=== PATIENT | female | born 1970 | race Caucasian/White ===

== ENCOUNTER 2022-05-15 10:34 | Outpatient (CLI) | payer BC ==
--- NOTE | 2022-05-15 13:17 | Ultrasound Report ---
PROCEDURE: Duplex Ext Veins Left INDICATIONS: PAIN IN LEFT CALF TECHNIQUE: Real-time imaging, as well as color and pulse Doppler interrogation, were performed of the lower extr emity deep veins from the inguinal ligament to the popliteal fossa. COMPARISON: None. FINDINGS: The deep veins are normally compressible, and free of intraluminal thrombus. Color and pu lse Doppler demonstrate normal phasic intraluminal flow. There is normal augmentation response to di stal compression maneuver. IMPRESSION: No evidence of left lower extremity deep venous thrombosis. Reviewed by: Alan Quintero MD on 05/15/2022 1:15 PM PDT Approved by: Alan Quintero MD on 05/15/2022 1:15 PM PDT Station ID: [id number]
== END 2022-05-15 10:35 | disposition home or self-care (01) ==
LOC: DI 10:34
PROVIDERS: ATTEND Family Medicine
DX: M79.662 Pain in left lower leg (principal)

== ENCOUNTER 2022-09-24 12:22 | Outpatient (CLI) | payer BC ==
--- NOTE | 2022-09-25 13:08 | Mammography Report ---
UNILATERAL LEFT DIGITAL DIAGNOSTIC MAMMOGRAM 3D/2D WITH SPOT COMPRESSION: 09/24/2022 CLINICAL: Patient returns today to evaluate a focal asymmetry in the left breast. Comparison is made to exam dated: 07/08/2022 mammogram - [facility]. There are scattered areas of fibroglandular density in the left breast (category b / 25%-50% glandula r tissue). There is an oval focal asymmetry in the left breast central to the nipple in the retroareolar region. No other significant masses or calcifications are seen in the breast. IMPRESSION: INCOMPLETE: NEEDS ADDITIONAL IMAGING EVALUATION The oval focal asymmetry in the left breast is indeterminate. This could represent a dilated duct. A targeted ultrasound is recommended and will immediately follow. This exam was interpreted at Station ID: [id number]. NOTE: For mammograms, a report in lay terms will be sent to the patient. Approximately 15% of breast malignancies will not be visualized mammographically. In the management of a palpable breast mass, a negative mammogram must not discourage biopsy of a clinically suspicious lesion. Electronically Signed By: Darrell Berkowitz M.D. slc/:09/24/2022 13:03:54 ACR BI-RADS Category 0: Incomplete 3340F PARENCHYMAL PATTERN: (A) - The breast(s) demonstrate(s) scattered fibroglandular densities. BI-RADS CATEGORY: (0) - 0 Ultrasound [id number] Immediate follow-up LATERALITY: (B)
--- NOTE | 2022-09-25 13:08 | Ultrasound Report ---
LIMITED ULTRASOUND OF LEFT BREAST: 09/24/2022 CLINICAL: Patient returns today to evaluate a focal asymmetry in the left breast. Comparison is made to exams dated: 09/24/2022 mammogram and 07/08/2022 mammogram - [facility]. Color flow and real-time ultrasound of the left breast retroareolar were performed. Montero scale image s of the real-time examination were reviewed. There is a dilated duct in the left breast central to the nipple in the retroareolar region. This di lated duct displays internal echoes. This correlates with mammography findings. Color flow imaging demonstrates that there is no vascularity present. No intraductal mass. IMPRESSION: BENIGN There is no sonographic evidence of malignancy. Left breast retroareolar dilated duct with debris is benign. Patient denies nipple discharge. No intr aductal mass. A 1 year screening mammogram is recommended. Exam findings were conveyed to the patient. This exam was interpreted at Station ID: [id number]. Electronically Signed By: Darrell Berkowitz M.D. slc/:09/24/2022 13:29:09 Ultrasound BI-RADS: 2 Benign BI-RADS CATEGORY: (2) - 2 RECOMMENDATION: (ANNUAL) - Recommend routine annual screening mammography. [id number] 1 year screening LATERALITY: (B)
== END 2022-09-24 12:23 | disposition home or self-care (01) ==
LOC: DI 12:22
PROVIDERS: ATTEND Nurse Practitioner Family
DX: N60.42 Mammary duct ectasia of left breast (principal)

== ENCOUNTER 2023-06-09 08:21 | Outpatient (CLI) | payer MEDICARE | END 2023-06-09 23:59 | disposition critical access hospital (66) | LOC: EMS 08:21 | DX: E11.65 Type 2 diabetes mellitus with hyperglycemia (principal); R53.1 Weakness; R09.89 Other specified symptoms and signs involving the circulatory and respiratory systems; R61 Generalized hyperhidrosis; R23.1 Pallor; R60.0 Localized edema | CPT/HCPCS: A0425; A0429 ==

== ENCOUNTER 2023-06-09 09:07 | Inpatient (IN) | payer MEDICARE ==
--- NOTE | 2023-06-09 09:21 | ED Physician Documentation ---
History of Present Illness - Stated complaint Stated Complaint: FALL - History obtained from History obtained from: Patient, EMS - Additonal information Additional information: 52-year-old female with history of insulin-dependent diabetes, muscular dystrophy presents by EMS from home for generalized weakness. Patient was walking after eating a meal when her legs gave out and she "fell slowly" to the floor. Denies hitting head, denies LOC, denies use of blood thinners. Patient was unable to get up and so her mom called 911. Patient states that because of her muscular dystrophy her legs frequently give out, but she is normally able to get back up off the floor. EMS reports that patient's vital signs were otherwise unremarkable en route. Patient did have glucose >200. It was noted at home that patient's lower extremities were both swollen, which the patient denies knowledge of until today. Review of Systems Constitutional: denies: Fever, Chills Cardiac: denies: Chest pain / pressure, Palpitations, Calf pain GI: denies: Abdominal Pain, Nausea, Vomiting : denies: Dysuria, Frequency, Hesitancy Musculoskeletal: reports: Extremity swelling. denies: Neck pain, Back pain, Extremity pain, Joint pain Neurologic: reports: Generalized weakness. denies: Focal weakness, Numbness, Difficulty speaking PD PAST MEDICAL HISTORY - Allergies Allergies/Adverse Reactions: Allergies Allergy/AdvReac Type Severity Reaction Status Date / Time No Known Drug Allergies Allergy Verified 06/09/23 09:32 PD ED PE NORMAL - Vitals Vital signs reviewed: Yes - General General: Alert and oriented X 3, No acute distress, Well developed/nourished, Other (debilitated) - Cardiac Cardiac: No murmur, Other (irregularly irregular) - Respiratory Respiratory: No respiratory distress, Other (on supplemental nasal cannula, no wheezing) - Abdomen Abdomen: Soft, Non tender, Non distended - Derm Derm: Normal color, Warm and dry, No rash - Extremities Extremities: No deformity, No tenderness to palpate, Normal ROM s pain, Other (2+ nonpitting edema to knees bilaterally) - Neuro Neuro: Alert and oriented X 3, associate counsel 2-12 intact, No motor deficit, Normal speech - Psych Psych: Normal mood, Normal affect Results - Vitals Vitals: Vital Signs - 24 hr 06/09/23 06/09/23 09:14 12:35 Temperature 36.1 C L 36.5 C Heart Rate 93 90 Respiratory 14 18 Rate Blood Pressure 98/64 127/75 O2 Saturation 94 94 If not protocol 3 : Oxygen Flow, liters/minute Oxygen O2 Source Nasal cannula - EKG (time done) 0940 EKG releavant findings:: EKG personally interpreted by author of this note. Relevant findings are: Rate: Rate (enter#) (100) Rhythm: Atrial fibrillation Cub Run: Normal Intervals: LBBB Compare to prior EKG: Old EKG unavailable - Labs Labs: Laboratory Tests 06/09/23 06/09/23 06/09/23 09:50 09:53 09:53 WBC 8.6 RBC 5.00 Hgb 12.6 Hct 45.7 MCV 91.4 MCH 25.2 L MCHC 27.6 L RDW 15.3 H Plt Count 158 MPV 10.6 Neut # (Auto) 5.9 Lymph # (Auto) 1.8 Stearns # (Auto) 0.8 Eos # (Auto) 0.1 Baso # (Auto) 0.0 Absolute Nucleated RBC 0.03 Nucleated RBC % 0.3 Manual Slide Review Indicated Platelet Morphology NORMAL APPEARANCE RBC Morph Micro Appear NORMAL APPEARANCE Sodium 142 Potassium 4.9 H Chloride 99 L Carbon Dioxide 41 H* Anion Gap 2.0 L BUN 11 Creatinine 0.5 L Estimated GFR (MDRD) 129 Glucose 233 H Calcium 9.8 Total Bilirubin 0.9 AST 13 ALT 10 Alkaline Phosphatase 76 Troponin I High Sens 21.0 H* B-Natriuretic Peptide Total Protein 6.4 Albumin 3.9 Globulin 2.5 Albumin/Globulin Ratio 1.6 Urine Color Urine Clarity Urine pH Ur Specific [place] Urine Protein Urine Glucose (UA) Urine Ketones Urine Occult Blood Urine Nitrite Urine Bilirubin Urine Urobilinogen Ur Leukocyte Esterase Urine RBC Urine WBC Ur Squamous Epith Cells Urine Crystals Urine Bacteria Urine Mucus Ur Microscopic Review Urine Culture Comments Nasal Adenovirus (PCR) NOT DETECTED Nasal B. parapertussis DNA (PCR) NOT DETECTED Nasal Coronavir 229E PCR NOT DETECTED Nasal Coronavir HKU1 PCR NOT DETECTED Nasal Coronavir NL63 PCR NOT DETECTED Nasal Coronavir OC43 PCR NOT DETECTED Nasal Enterovir/Rhinovir PCR NOT DETECTED Nasal Influenza B PCR NOT DETECTED Nasal Influenza A PCR NOT DETECTED Nasal Parainfluen 1 PCR NOT DETECTED Nasal Parainfluen 2 PCR NOT DETECTED Nasal Parainfluen 3 PCR NOT DETECTED Nasal Parainfluen 4 PCR NOT DETECTED Nasal RSV (PCR) NOT DETECTED Nasal B.pertussis DNA PCR NOT DETECTED Nasal C.pneumoniae (PCR) NOT DETECTED Amish Human Metapneumo PCR NOT DETECTED Nasal M.pneumoniae (PCR) NOT DETECTED Nasal SARS-CoV-2 (PCR) NOT DETECTED 06/09/23 06/09/23 09:53 12:25 WBC RBC Hgb Hct MCV MCH MCHC RDW Plt Count MPV Neut # (Auto) Lymph # (Auto) Stearns # (Auto) Eos # (Auto) Baso # (Auto) Absolute Nucleated RBC Nucleated RBC % Manual Slide Review Platelet Morphology RBC Morph Micro Appear Sodium Potassium Chloride Carbon Dioxide Anion Gap BUN Creatinine Estimated GFR (MDRD) Glucose Calcium Total Bilirubin AST ALT Alkaline Phosphatase Troponin I High Sens B-Natriuretic Peptide 99 Total Protein Albumin Globulin Albumin/Globulin Ratio Urine Color DARK YELLOW Urine Clarity CLOUDY Urine pH 6.0 Ur Specific [place] 1.025 Urine Protein TRACE Urine Glucose (UA) 250 H Urine Ketones NEGATIVE Urine Occult Blood LARGE H Urine Nitrite NEGATIVE Urine Bilirubin NEGATIVE Urine Urobilinogen 0.2 (NORMAL) Ur Leukocyte Esterase NEGATIVE Urine RBC TNTC H Urine WBC 4-5 Ur Squamous Epith Cells MOD Squamous H Urine Crystals >50 Calcium Oxalate Urine Bacteria Moderate H Urine Mucus Few Strands Ur Microscopic Review INDICATED Urine Culture Comments NOT INDICATED Nasal Adenovirus (PCR) Nasal B. parapertussis DNA (PCR) Nasal Coronavir 229E PCR Nasal Coronavir HKU1 PCR Nasal Coronavir NL63 PCR Nasal Coronavir OC43 PCR Nasal Enterovir/Rhinovir PCR Nasal Influenza B PCR Nasal Influenza A PCR Nasal Parainfluen 1 PCR Nasal Parainfluen 2 PCR Nasal Parainfluen 3 PCR Nasal Parainfluen 4 PCR Nasal RSV (PCR) Nasal B.pertussis DNA PCR Nasal C.pneumoniae (PCR) Amish Human Metapneumo PCR Nasal M.pneumoniae (PCR) Nasal SARS-CoV-2 (PCR) PD Medical Decision Making - ED course Complexity details: reviewed old records, reviewed results, re-evaluated patient, considered differential, d/w patient, d/w family ED course: Brought in for generalized weakness, unable to get up off the floor after ground-level fall. Patient currently denying any acute pains. She states that she did not previously realize that her legs were swollen until it was brought to her attention by EMS. Shortly after arrival to the emergency department patient's oxygen saturation dropped while on room air with good waveform. Patient denies shortness of breath. Placed on supplemental nasal cannula. EKG atrial fibrillation, patient denies ever being diagnosed with atrial fibrillation. Does not take any blood thinners. Laboratory work is reviewed, CO2 elevated, mild elevation in troponin. US negative for DVT. Patient is continuing to require 3L supplemental nasal cannula. Chest x-ray shows cardiomegaly with possible pulmonary edema. CT angio is reviewed, no obvious pulmonary embolism, there is cardiomegaly with evidence of pulmonary edema. Will give IV lasix. Plan to admit for further workup Departure - Departure Disposition: 66 [facility] DC/Xfer Clinical Impression: Left bundle branch block, Generalized weakness Respiratory failure with hypoxia Qualifiers: Chronicity: acute Qualified Code(s): J96.01 - Acute respiratory failure with hypoxia Condition: Stable
[2023-06-09] MEDS ORDERED: SODIUM CHLORIDE 0.9% 1,000 ML IV STA (09:23)
--- NOTE | 2023-06-09 09:45 | XRAY Report ---
PROCEDURE: Chest 1 View X-Ray INDICATIONS: GEN WEAKNESS TECHNIQUE: One view of the chest was acquired. COMPARISON: None. FINDINGS: Surgical changes and devices: None. Lungs and pleura: No pleural effusions or pneumothorax. There is pulmonary vascular congestion. No d efinite focal infiltrate. Mediastinum: Mediastinal contours appear normal. Heart size is enlarged. Bones and chest wall: No suspicious bony lesions. Overlying soft tissues appear unremarkable. IMPRESSION: Cardiomegaly and mild congestion. No definite focal infiltrate. No pleural effusion or pneumothorax. Reviewed by: Kelvin Castellon MD on 06/09/2023 9:44 AM PDT Approved by: Kelvin Castellon MD on 06/09/2023 9:44 AM PDT Station ID: [id number]
[2023-06-09 10:01] LABS: BASOPHILS % (AUTO) 0.5 %; EOSINOPHILS # (AUTO) 0.1 10^3/uL (0.0-0.7); EOSINOPHILS % (AUTO) 0.6 %; HCT - HEMATOCRIT 45.7 % (37.0-47.0); HGB - HEMOGLOBIN 12.6 g/dL (12.0-16.0); LYMPHOCYTES # (AUTO) 1.8 10^3/uL (1.5-3.5); LYMPHOCYTES % (AUTO) 20.4 %; MEAN CORPUSCULAR HEMOGLOBIN 25.2 pg (27.0-31.0); MEAN CORPUSCULAR HGB CONC 27.6 g/dL (32.0-36.0); MEAN CORPUSCULAR VOLUME 91.4 fL (81.0-99.0); MEAN PLATELET VOLUME 10.6 fL (7.9-10.8); MONOCYTES # (AUTO) 0.8 10^3/uL (0.0-1.0); MONOCYTES % (AUTO) 9.1 %; NEUTROPHILS # (AUTO) 5.9 10^3/uL (1.5-6.6); NEUTROPHILS % (AUTO) 69.1 %; NRBC ABSOLUTE COUNT (AUTO) 0.03 x10^3/uL; NUCLEATED RED BLOOD CELLS AUTO 0.3 /100WBC; PLT - PLATELET COUNT 158 10^3/uL (130-450); RED CELL DISTRIBUTION WIDTH 15.3 % (12.0-15.0); WHITE BLOOD COUNT 8.6 x10^3/uL (4.8-10.8)
[2023-06-09 10:14] LABS: ALBUMIN 3.9 g/dL (3.2-5.5)
[2023-06-09 10:19] LABS: ALBUMIN/GLOBULIN RATIO 1.6 (1.0-2.2); BILIRUBIN,TOTAL 0.9 mg/dL (0.2-1.0); CALCIUM 9.8 mg/dL (8.5-10.3); CREATININE 0.5 mg/dL (0.6-1.3); POTASSIUM 4.9 mmol/L (3.5-4.5); TOTAL PROTEIN 6.4 g/dL (6.4-8.9)
[2023-06-09 10:48] LABS: PLATELET MORPHOLOGY NORMAL APPEARANCE (NORMAL); SLIDE REVIEW? Indicated
[2023-06-09 10:49] LABS: RBC MORPHOLOGY (MULTIPLE) NORMAL APPEARANCE (NORMAL)
[2023-06-09 10:51] LABS: B. PARAPERTUSSIS- RESP PCR PAN NOT DETECTED; CORONAVIRUS 229E-RESP PCR NOT DETECTED; CORONAVIRUS HKU1-RESP PCR NOT DETECTED; CORONAVIRUS NL63-RESP PCR NOT DETECTED; CORONAVIRUS OC43-RESP PCR NOT DETECTED; HUMAN METAPNEUMOVIRUS NOT DETECTED; INFLUENZA A- RESP PCR PANEL NOT DETECTED; INFLUENZA B - RESP PCR PANEL NOT DETECTED; PARAINFLUENZA VIRUS 1 NOT DETECTED; PARAINFLUENZA VIRUS 2 NOT DETECTED; PARAINFLUENZA VIRUS 3 NOT DETECTED; PARAINFLUENZA VIRUS 4 NOT DETECTED; RHINOVIRUS/ENTEROVIRUS NOT DETECTED; RSV- RESP PCR PANEL NOT DETECTED; SARS-CoV-2 -RESP PCR PANEL NOT DETECTED
--- NOTE | 2023-06-09 10:51 | Ultrasound Report ---
PROCEDURE: Duplex Ext Veins Bilateral INDICATIONS: Sharonda Oro MD TECHNIQUE: Real-time imaging, as well as color and pulse Doppler interrogation, were performed of the deep veins of both legs from the inguinal ligament to the popliteal fossa. Attempted visualization of the calf veins was performed. COMPARISON: None. FINDINGS: The deep veins are normally compressible, and free of intraluminal thrombus. Color and pu lse Doppler demonstrate normal phasic intravascular flow. There is normal augmentation response to d istal compression maneuver. IMPRESSION: No deep venous thrombosis of the visualized lower extremities. Reviewed by: Kelvin Castellon MD on 06/09/2023 10:50 AM PDT Approved by: Kelvin Castellon MD on 06/09/2023 10:50 AM PDT Station ID: [id number]
[2023-06-09 10:52] LABS: B. PERTUSSIS- RESP PCR PANEL NOT DETECTED; C. PNEUMONIAE- RESP PCR PANEL NOT DETECTED; M. PNEUMONIAE- RESP PCR PANEL NOT DETECTED
[2023-06-09 12:35] LABS: BILIRUBIN,URINE NEGATIVE (NEGATIVE); CLARITY,URINE CLOUDY (CLEAR); GLUCOSE, URINE (UA) 250 mg/dL (NEGATIVE); KETONES,URINE (UA) NEGATIVE (NEGATIVE); LEUKOCYTE ESTERASE, URINE NEGATIVE (NEGATIVE); NITRITE,URINE NEGATIVE (NEGATIVE); OCCULT BLOOD,URINE LARGE (NEGATIVE); PROTEIN,URINE TRACE mg/dL (NEGATIVE); UROBILINOGEN,URINE 0.2 (NORMAL) E.U./dL (NORMAL)
[2023-06-09 12:56] LABS: BACTERIA,URINE Moderate /HPF (None Seen); CRYSTALS,URINE >50 Calcium Oxalate /LPF; MUCUS,URINE Few Strands; RBC,URINE TNTC /HPF (0-5); SQUAMOUS EPITHELIAL CELL,UR MOD Squamous (<= Few)
--- NOTE | 2023-06-09 13:08 | CT Report ---
PROCEDURE: ANGIO CHEST W/WO INDICATIONS: HYPOXIA, NEW AFIB CONTRAST: 80ml omni 300 TECHNIQUE: After the administration of intravenous contrast, 2 mm axial images were acquired from the pulmonary apices to the posterior costophrenic angles during the arterial phase. In addition, 1 mm lung kernel and 5 mm soft tissue kernel reconstructions were performed. 3-dimensional coronal oblique maximum int ensity projection (MIP) reformats, 8 mm axial MIP, and 5 mm coronal and sagittal MPR reformats were t hen performed through the thorax. For radiation dose reduction, the following was used: automated exp osure control, adjustment of mA and/or kV according to patient size. COMPARISON: Chest radiograph from earlier same day FINDINGS: Image quality: Diagnostic. Moderate respiratory motion artifact radiology and timing of contrast bolu s. Large vessels: No filling defects within the opacified pulmonary arteries to the level of the proxima l segmental pulmonary arteries, accounting for motion and contrast timing. No evidence of acute aorti c syndrome or aortic aneurysm. Lungs and pleura: Low lung volumes. No focal consolidation. Dependent atelectasis. Suggestion of smoo th bilateral septal thickening. Mild perihilar airway thickening. No substantial pleural effusions. N o pneumothorax. No suspicious pulmonary nodules which require follow up. Mediastinum: Heart size is enlarged. Trace pericardial effusion likely physiologic. No large vessel a bnormality. No mediastinal adenopathy by size criteria. Chest wall and lower neck: Thyroid is unremarkable. No axillary or supraclavicular adenopathy by size . Bones: No aggressive osseous abnormality. Upper Abdomen: Unremarkable. IMPRESSION: Limited evaluation secondary to moderate patient motion artifact and timing of contrast. No evidence for acute pulmonary emboli to the level of the proximal segmental pulmonary arteries. No evidence for acute right-sided heart strain. Cardiomegaly with findings suggestive of mild pulmonary edema. Infectious/inflammatory process not co mpletely excluded if clinically appropriate. No focal consolidation seen. Reviewed by: Ruddy Ramirez MD on 06/09/2023 1:07 PM PDT Approved by: Ruddy Ramirez MD on 06/09/2023 1:07 PM PDT Station ID: [id number]
[2023-06-09] MEDS ORDERED: FUROSEMIDE 40 MG/4 ML VIAL IVP STA (13:11)
[2023-06-09] MEDS ORDERED: ONDANSETRON 4 MG/2 ML VIAL IVP PRN (13:50)
--- NOTE | 2023-06-09 18:11 | HISTORY & PHYSICAL EXAMINATION ---
Chief Complaint - Chief Complaint Chief Complaint: Legs gave out and could not get up off the floor History of Present Illness - Admitted From Admitted From:: ED - History Obtained From History obtained from: ED provider and the patient - History of Present Illness HPI Comment/Other: This is a 52-year-old female with a history of insulin-dependent diabetes and myotonic dystrophy. She says her muscle weakness due to the muscular dystrophy started when she was in her 40s and she is on disability for it. There is a family history of myotonic dystrophy in her older sister and father. Her 5 years ago and she moved in with her mother. Today while walking at home the patient's "legs gave out" and she dropped to the ground, but says this happens often because of her muscular dystrophy and weakness. Today the difference was that she was too weak to get up. Her mother also tried and they could not raise her. An ambulance was called. The hi lo driver pointed out that she had significant leg edema (which the patient first said she did not notice but then when I was speaking with her she said she had noticed having leg edema). Her O2 saturation was 82% by EMS. She was brought to the ER. There she had an O2 saturation on room air of 85% and was put on 3 L suppl O2. The work-up shows that she has cardiomegaly and pulmonary edema and anasarca of the legs up to the thighs. Her EKG shows A-fib and she also has LBBB, which may be new findings for her. There are no old EKGs here for comparison, however she denies ever being told she had Afib. She received IV Lasix ib=n the ER. Her BNP is 99, and BUN/creat are normal. The ED provider then spoke to me about this patient. She will be admitted to manage pulmonary edema with anasarca and hypoxemia in a patient with myotonic dystrophy and generalized weakness. I spoke to the patient about her CODE BLUE wishes and she wants to be resuscitated but wants to be a DO NOT INTUBATE. History - Past Medical History Cardiovascular: reports: None Respiratory: reports: None Neuro: reports: Other (Myotonic dystrophy, worse weakness since her 40's) Endocrine/Autoimmune: reports: Type 2 diabetes GI: reports: None EMAIL MARKETER: reports: None : reports: None HEENT: reports: None Psych: reports: None Musculoskeletal: reports: Other (generalized weakness from myotonic dystrophy) Derm: reports: None Other Past Medical History: Muscular dystropy - Family & Social History Family History: Mother: Alive and Well, Father: Family History Comment/Other: Her older sister has muscular dystrophy, her father had muscular dystrophy. She has no children, she is a of 5 years. Living arrangement: At home Living Situation: With family Social History Notes: She quit smoking about 20 years ago. She drinks alcohol extremely rarely, last drink was 4 years ago. She is on disability, she does not work outside of the home. She states she still drives a car. She uses canes and other devices for assistance with walking. She lives with her mother. - Substance History Use: Uses substance without health or social issues: NONE Meds/Allgy - Home Medications Home Medications: Ambulatory Orders Medication Instructions Recorded Confirmed Etonogestrel/Ethinyl Estradiol 1 each VG UD 06/09/23 06/09/23 [Haloette Vaginal Ring] Gabapentin [Neurontin] 300 mg PO DAILY 06/09/23 06/09/23 Insulin Glargine,Hum.rec.anlog 54 units SUBQ DAILY 06/09/23 06/09/23 [Basaglar Kwikpen U-100] Liraglutide [Victoza 2-Pal] 1.2 mg SUBQ DAILY 06/09/23 06/09/23 Losartan Potassium 12.5 mg PO DAILY 06/09/23 06/09/23 Simvastatin [Zocor] 10 mg PO DAILY 06/09/23 06/09/23 - Allergies Allergies/Adverse Reactions: Allergies Allergy/AdvReac Type Severity Reaction Status Date / Time amoxicillin AdvReac Rash Verified 06/09/23 17:34 Sulfa (Sulfonamide AdvReac Hives Verified 06/09/23 17:34 Antibiotics) Review of Systems - Constitutional Constitutional: reports: Weakness - Cardiovascular Cariovascular: reports: Edema - Respiratory Respiratory: reports: SOB with exertion - Musculoskeletal Musculoskeletal: reports: Muscle weakness - Neurological Neurological: reports: General weakness, Other (tremor of hands) - All Other Systems All Other Systems: reports: Reviewed and negative Exam - Vital Signs Reviewed Vital Signs: Yes Vital Signs: Vital Signs x48h Temp Pulse Pulse Resp BP BP Pulse Ox 06/09/23 15:10 36.3 C L 79 18 112/64 94 06/09/23 15:00 36.5 C 88 18 108/60 96 06/09/23 13:58 92 19 106/63 97 06/09/23 13:45 85 L 06/09/23 12:35 36.5 C 90 18 127/75 94 06/09/23 10:55 O2 Flow Rate 06/09/23 15:10 4 06/09/23 15:00 3 06/09/23 13:58 3 06/09/23 13:45 06/09/23 12:35 3 06/09/23 10:55 3 - Physical Exam General Appearance: positive: No acute distress, Alert, Other (Obese) Eyes Bilateral: positive: Normal inspection, EOMI ENT: positive: ENT inspection nml, No signs of dehydration, Other (wearing O2 via n.c.) Neck: positive: Nml inspection, No JVD, Other (Obese) Respiratory: positive: No respiratory distress (while dennis O2 suppl), Other (Diminished breath soubnds in all lung [place]) Cardiovascular: positive: Irregularly irregular, Other (Very distant heart sounds. HAs large breasts) Abdomen: positive: Non-tender, Other (Obese with a pannus) Skin: positive: Other (Redness and warmth of dorsum of both feet and also at medial thighs) Extremities: positive: Non-tender, Other (4+ tense pitting edema to hips bilat.) Neurologic/Psychiatric: positive: Oriented x3, CN's nml (2-12), Other (Slow speech and somewhat disorganized slurred speech. Tremor of R hand. Movesd all extrem spontaneously.) Conclusion/Plan - Problem List (1) Acute respiratory failure with hypoxia and hypercarbia Conclusion/Plan: Patient had a low O2 sat on the scene measured by EMS. Her O2 sat was 85% on room air measured in the ER. The etiology appears to be her pulmonary edema. Even though no ABG was done, her venous labs show she has elevated serum Bicarb, therefore she likely has CO2 retention and the bicarb is compensatory. I suspect she may have respiratory muscle weakness from her Myotonic Dystrophy causing CO2 retention. Plan: Give supplemental O2, titrate down to room air when possible, as we treat her CHF. Target O2 saturation will be 92% Avoid excessive FIO2 to prevent hypopnia and further CO2 retention. (2) Pulmonary edema Conclusion/Plan: The patient did notice her becoming slowly more short of breath with activity and did notice her leg edema. On exam she has diminished breath sounds consistent with a pleural effusion and anasarca of the legs Plan: Begin twice daily IV Lasix Follow I's and O's and daily weights Order low-salt diet Follow her electrolytes and magnesium daily, replace if low Obtain an Echocardiogram Monitor on telemetry for dysrhythmias (3) Left bundle branch block Conclusion/Plan: The finding of LBBB is concerning because it is highly correlated with systolic heart failure Plan: As in #2 (4) New onset a-fib Conclusion/Plan: The patient denies feeling palpitations. She says she has never been told the diagnosis of atrial fibs. Her EKG shows atrial fib but the heart rate is not very rapid. Plan: Check troponins to rule out ACS as the cause Check her TSH and if needed a T4 to rule out hyperthyroidism as the cause Monitor on telemetry Start Carvedilol Currently her CHADS score equals 1, for diabetes. We will await the echo to determine if there is a low ejection fraction. She would then be a candidate to start on anticoagulants since she would then have a CHADS score of 3 or greater (5) Myotonic dystrophy Conclusion/Plan: As per Hx. She has evidence of weakness even in her speech. 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 Plan: Will have PT and OT evaluate and work with her while she is here Hold her statin in case it is adding to muscle weak (6) DM type 2 (diabetes mellitus, type 2) Conclusion/Plan: As per Hx Plan: Start a diabetic diet, fingerstick glucose checks, sliding scale insulin, hypoglycemia protocol Await her reconciled med list to start her usual diabetic meds and management Check A1c with a.m. labs - Lab Results Fish Bones: 06/10/23 06:12 06/10/23 06:12 - Diagnostic Imaging Results Diagnostic Imaging Results: positive: Final report reviewed - EKG Results EKG Interpreted Independently: Yes EKG Findings: Afib, rate 100, LBBB. No old EKG available for comparison. - Other Other Results/Comments: Attestation: The patient is expected to be hospitalized for greater than 2 midnights and is expected to be discharged or transferred to another facility within 96 hours: Yes.
[2023-06-09] MEDS: SODIUM CHLORIDE FLUSH 0.9% 10 ML SYRINGE IVP SCH (18:13)
[2023-06-09] MEDS: ACETAMINOPHEN 325 MG TABLET PO PRN (20:01)
[2023-06-09] MEDS: carvediloL 3.125 MG TABLET PO SCH (20:07)
[2023-06-09] MEDS: INSULIN GLARGINE-YFGN 300 UNIT/3 ML PEN SUBQ SCH (20:58)
[2023-06-10] MEDS: ACETAMINOPHEN 325 MG TABLET PO PRN ×2 (01:22→17:33)
[2023-06-10] MEDS: SODIUM CHLORIDE FLUSH 0.9% 10 ML SYRINGE IVP SCH ×3 (01:23→17:34)
[2023-06-10] MEDS: FUROSEMIDE 20 MG/2 ML VIAL IVP SCH ×2 (06:03→14:06)
[2023-06-10 06:23] LABS: HCT - HEMATOCRIT 42.9 % (37.0-47.0); MEAN CORPUSCULAR HEMOGLOBIN 25.6 pg (27.0-31.0); MEAN CORPUSCULAR VOLUME 91.5 fL (81.0-99.0); MEAN PLATELET VOLUME 10.2 fL (7.9-10.8); RED BLOOD COUNT 4.69 10^6/uL (4.20-5.40); RED CELL DISTRIBUTION WIDTH 15.3 % (12.0-15.0); WHITE BLOOD COUNT 6.6 x10^3/uL (4.8-10.8)
[2023-06-10 06:37] LABS: MAGNESIUM 1.7 mg/dL (1.7-2.3)
[2023-06-10 06:49] LABS: THYROID STIMULATING HORMONE 1.74 uIU/mL (0.34-5.60)
[2023-06-10 06:54] LABS: CALCIUM 9.4 mg/dL (8.5-10.3); CREATININE 0.4 mg/dL (0.6-1.3); POTASSIUM 4.1 mmol/L (3.5-4.5)
[2023-06-10] MEDS ORDERED: LOSARTAN 50 MG TABLET PO SCH (09:00)
[2023-06-10] MEDS: GABAPENTIN 300 MG CAPSULE PO SCH (09:15)
[2023-06-10] MEDS: carvediloL 3.125 MG TABLET PO SCH (09:15)
[2023-06-10] MEDS: INSULIN GLARGINE-YFGN 300 UNIT/3 ML PEN SUBQ SCH ×2 (09:15→21:38)
[2023-06-10] MEDS: ENOXAPARIN 40 MG/0.4 ML SYRINGE SUBQ SCH (09:15)
--- NOTE | 2023-06-10 10:51 | PHARMACY PROGRESS NOTE ---
- Best Possible Medication History Admit Date and Time: 06/09/23 1350 Processed by: Pharmacy Medication History completed: Yes Patient Interview: Completed Secondary Source(s): Insurance records (Per pt, she does not use the vaginal ring. I asked pt several times since I saw multiple dispensations by the pharmacy but pt confirmed several time that she does not use it. I advised pt to let PHarmacy know to not fill it since it may be on autofil.) As the person ultimately responsible for medication therapy, providers are able to order a medication from an existing home medication list in [facility] via the "Reconcile Routine" prior to Confirmation of that medication by academic support assistant. Such practice is discouraged except when the physician, in their clinical judgment, deems that a medical need exists for a medication without regard to previous use.
[2023-06-10 11:02] LABS: ESTIMATED AVERAGE GLUCOSE 226 mg/dL (70-100); HEMOGLOBIN A1c% 9.5 % (4.27-6.07)
[2023-06-10] MEDS ORDERED: INSULIN LISPRO 300 UNIT/3 ML PEN SUBQ SCH (12:00)
[2023-06-10] MEDS: INSULIN LISPRO 300 UNIT/3 ML PEN SUBQ SCH ×2 (17:34→21:38)
--- NOTE | 2023-06-10 19:40 | PROVIDER PROGRESS NOTE ---
Assessment/Plan - Problem List (1) Acute respiratory failure with hypoxia and hypercarbia Assessment/Plan: Patient had a low O2 sat on the scene measured by EMS. Her O2 sat was 85% on room air measured in the ER. The etiology appears to be her pulmonary edema. Even though no ABG was done, her venous labs show she has elevated serum Bicarb, therefore she likely has CO2 retention and the bicarb is compensatory. I suspect she may have respiratory muscle weakness from her Myotonic Dystrophy causing CO2 retention. Plan: Give supplemental O2, titrate down to room air when possible, as we treat her CHF. Target O2 saturation will be 92% Avoid excessive FIO2 to prevent hypopnia and even further CO2 retention. (2) Pulmonary edema Conclusion/Plan: The patient did notice herself becoming slowly more short of breath with activity, having orthopnea, and did notice her leg edema. On exam she has slight improvement in her anasarca of the legs, they are not as taught today, but still pitting edema to thighs. Since diuresis began, she is able to lie more flat. She is only (-) 600 cc since admission. Her Echocardiogram was done today and showed preserved LVEF and R heart enlargement plus engorged IVC. Plan: Cont twice daily IV Lasix Follow I's and O's and daily weights Cont low-salt diet Follow her electrolytes and magnesium daily, replace if low Monitor on telemetry for dysrhythmias (3) Left bundle branch block Conclusion/Plan: The finding of LBBB could be due to Myotonic Dystrophy, which affects the conduction system of the heart. Plan: As in #2 (4) New onset a-fib Conclusion/Plan: The patient denies feeling palpitations. She says she has never been told the diagnosis of atrial fib. Her EKG shows atrial fib but the heart rate was not very rapid. VS were reviewed. Her HR is running 90-110. Troponins to rule out ACS as the cause Her TSH and if needed a T4 to rule out hyperthyroidism as the cause Her Echo showed a preserved ejection fraction. She has diastolic heart failure however. She has a CHADSsVasc2 score of 3 (DM, CHF, Female), therefore a DOAC is considered beneficial per guidelines. However, given her propensity to fall "when her legs give out", I need to discuss the risks and benefits with pt and also with her mother, since I can see that the pt has some cognitive impairment (unable frederick give detailed answers, is somewhat sleepy), which could be from her MD. Plan: Cont to monitor on telemetry I will increase Carvedilol from 3.125 bid to 6.25 bid for better rate control I need to discuss the risks and benefits of being on an anticoagulant with pt and also with her mother, since I can see that the pt has some cognitive impairment (unable frederick give detailed answers, is somewhat sleepy, which could be from her MD). (5) Myotonic dystrophy Conclusion/Plan: As per Hx. She has evidence of weakness even in her speech. She claims she goes to outpt PT and that she can still drive a car without any extra equipment. Plan: Will have PT and OT evaluate and work with her while she is here Hold her statin in case it is adding to muscle weak I plan on speaking with her mother to confirm what she does and how disabled she is (6) DM type 2 (diabetes mellitus, type 2) Conclusion/Plan: As per Hx Her A1c came back at 9.2, indicating poor glu control Plan: Cont a diabetic diet, fingerstick glucose checks, sliding scale insulin, hypoglycemia protocol I have re-started her usual diabetic meds and management - Current Meds Current Meds: Current Medications Generic Name Dose Route Start Last Admin Trade Name Freq PRN Reason Stop Dose Admin Acetaminophen 650 mg 06/09/23 13:50 06/10/23 17:33 Acetaminophen 325 Mg Tablet PO 650 mg Q4HR PRN Administration Pain 1 to 4, or Fever Enoxaparin Sodium 40 mg 06/10/23 09:00 06/10/23 09:15 Enoxaparin 40 Mg/0.4 Ml Syringe SUBQ 40 mg DAILY PEREZ Administration Furosemide 20 mg 06/10/23 06:00 06/10/23 14:06 Furosemide 20 Mg/2 Ml Vial IVP 20 mg BIDDIURETIC PEREZ Administration Gabapentin 300 mg 06/10/23 09:00 06/10/23 09:15 Gabapentin 300 Mg Capsule PO 300 mg DAILY PEREZ Administration Insulin Glargine-yfgn 10 unit 06/09/23 21:00 06/10/23 09:15 Insulin Glargine-Yfgn 300 Unit/3 Ml Pen SUBQ 10 unit BID PEREZ Administration Insulin Human Lispro 1 - 9 unit 06/10/23 17:21 06/10/23 17:34 Insulin Lispro 300 Unit/3 Ml Pen SUBQ 3 unit 0800,1200,1700,2100 PEREZ Administration Protocol Losartan Potassium 12.5 mg 06/10/23 09:00 06/10/23 09:15 Losartan 50 Mg Tablet PO 12.5 mg DAILY PEREZ Administration Ondansetron HCl 4 mg 06/09/23 13:50 06/10/23 18:08 Ondansetron 4 Mg/2 Ml Vial IVP 4 mg Q6HR PRN Administration Nausea / Vomiting Sodium Chloride 10 ml 06/09/23 17:00 06/10/23 17:34 Sodium Chloride Flush 0.9% 10 Ml Syringe IVP 10 ml 0100,0900,1700 PEREZ Administration - Lab Result Fish Bone Diagrams: 06/10/23 06:12 06/10/23 06:12 - Additional Planning My Orders: My Active Orders 06/09/23 19:27 Blood Glucose Checks - Eating [RC] 0800,1200,1700,2100 Initiate Hypoglycemia Protocol [RC] .protocol 06/09/23 21:00 Insulin Glargine-Yfgn [Semglee] 10 unit SUBQ BID 06/10/23 Evaluate and Treat OT [OT] Routine Evaluate and Treat PT [PT] Routine 06/10/23 06:00 FUROSEMIDE INJ 20mg VIAL [LASIX INJ 20mg VIAL] 20 mg IVP BIDDIURETIC 06/10/23 09:00 Enoxaparin [Lovenox] 40 mg SUBQ DAILY Gabapentin [Neurontin] 300 mg PO DAILY Losartan [Cozaar] 12.5 mg PO DAILY 06/10/23 17:21 Insulin Lispro [Humalog Kwikpen U-100] 1 - 9 unit SUBQ 0800,1200,1700,2100 06/10/23 21:00 Zolpidem [Ambien] 5 mg PO QPM carvediloL [Coreg] 6.25 mg PO BID 06/11/23 05:00 BMP - BASIC METABOLIC PANEL [CHEM] DAILYLAB 06/12/23 05:00 BMP - BASIC METABOLIC PANEL [CHEM] DAILYLAB Subjective - Subjective Patient Reports: Feeling Better (Lesss SOB, able to sleep semi-reclined not upright) Objective Vital Signs: Vital Signs - 24 hr 06/09/23 06/10/23 06/10/23 19:54 00:11 04:50 Temperature 36.7 C 36.6 C 36.6 C Heart Rate [ 96 53 L 89 Brachial] Heart Rate [ Sitting] Heart Rate [ Standing] Respiratory 18 18 18 Rate Blood Pressure 109/61 102/72 109/54 L [Right Brachial artery] Blood Pressure [Sitting] Blood Pressure [Standing] O2 Saturation 96 92 93 O2 Saturation [ Sitting] O2 Saturation [ Standing] If not protocol 4 4 3.5 : Oxygen Flow, liters/minute 06/10/23 06/10/23 06/10/23 07:56 08:00 13:45 Temperature 36.7 C 36.7 C Heart Rate [ 80 96 Brachial] Heart Rate [ Sitting] Heart Rate [ Standing] Respiratory 16 16 Rate Blood Pressure 103/66 104/64 [Right Brachial artery] Blood Pressure [Sitting] Blood Pressure [Standing] O2 Saturation 97 92 O2 Saturation [ Sitting] O2 Saturation [ Standing] If not protocol 3.5 3.5 3.5 : Oxygen Flow, liters/minute 06/10/23 06/10/23 06/10/23 13:48 13:50 16:14 Temperature 36.9 C Heart Rate [ 92 Brachial] Heart Rate [ 105 H 105 H Sitting] Heart Rate [ 108 H 108 H Standing] Respiratory 16 Rate Blood Pressure 118/46 L [Right Brachial artery] Blood Pressure 97/60 97/60 [Sitting] Blood Pressure 113/58 L 113/58 L [Standing] O2 Saturation 98 O2 Saturation [ 93 Sitting] O2 Saturation [ 93 Standing] If not protocol 3.5 : Oxygen Flow, liters/minute Oxygen O2 Source Nasal cannula I&O (Last 24 Hrs): Intake and Output Totals x24h 06/08/23 06/09/23 06/10/23 23:59 23:59 23:59 Intake Total 1360 840 Output Total 0 750 Balance -690 90 General: Alert, Oriented x3, Other (Lethargic) HEENT: EOMI, Mucous membr. moist/pink Neck: Supple, No JVD Neuro: Alert, Non Focal, Other (Slow speech, poor memory) Cardiovascular: No murmurs (distant heart sounds due to large breasts) Respiratory: No respiratory distress (on suppl O2) Abdomen: Soft, No tenderness, Other (Obese) Extremities: No clubbing, Other (4+ edema to thighs, but less tense leg edema) - Results Results: Laboratory Results WBC 6.6 x10^3/uL (4.8-10.8) 06/10/23 06:12 RBC 4.69 10^6/uL (4.20-5.40) 06/10/23 06:12 Hgb 12.0 g/dL (12.0-16.0) 06/10/23 06:12 Hct 42.9 % (37.0-47.0) 06/10/23 06:12 MCV 91.5 fL (81.0-99.0) 06/10/23 06:12 MCH 25.6 pg (27.0-31.0) L 06/10/23 06:12 MCHC 28.0 g/dL (32.0-36.0) L 06/10/23 06:12 RDW 15.3 % (12.0-15.0) H 06/10/23 06:12 Plt Count 153 10^3/uL (130-450) 06/10/23 06:12 MPV 10.2 fL (7.9-10.8) 06/10/23 06:12 Neut # (Auto) 5.9 10^3/uL (1.5-6.6) 06/09/23 09:53 Lymph # (Auto) 1.8 10^3/uL (1.5-3.5) 06/09/23 09:53 [place] # (Auto) 0.8 10^3/uL (0.0-1.0) 06/09/23 09:53 Eos # (Auto) 0.1 10^3/uL (0.0-0.7) 06/09/23 09:53 Baso # (Auto) 0.0 10^3/uL (0.0-0.1) 06/09/23 09:53 Absolute Nucleated RBC 0.03 x10^3/uL 06/09/23 09:53 Nucleated RBC % 0.3 /100WBC 06/09/23 09:53 Manual Slide Review Indicated 06/09/23 09:53 Platelet Morphology NORMAL APPEARANCE (NORMAL) 06/09/23 09:53 RBC Morph Micro Appear NORMAL APPEARANCE (NORMAL) 06/09/23 09:53 Sodium 142 mmol/L (135-145) 06/10/23 06:12 Potassium 4.1 mmol/L (3.5-4.5) 06/10/23 06:12 Chloride 98 mmol/L (101-111) L 06/10/23 06:12 Carbon Dioxide 42 mmol/L (21-32) H* 06/10/23 06:12 Anion Gap 2.0 (6-13) L 06/10/23 06:12 BUN 9 mg/dL (6-20) 06/10/23 06:12 Creatinine 0.4 mg/dL (0.6-1.3) L 06/10/23 06:12 Estimated GFR (MDRD) 167 (>89) 06/10/23 06:12 Glucose 231 mg/dL (74-104) H 06/10/23 06:12 POC Whole Bld Glucose 225 mg/dL (70 - 100) H 06/10/23 16:25 Estimat Average Glucose 226 mg/dL (70-100) H 06/10/23 06:12 Hemoglobin A1c % 9.5 % (4.27-6.07) H 06/10/23 06:12 Calcium 9.4 mg/dL (8.5-10.3) 06/10/23 06:12 Magnesium 1.7 mg/dL (1.7-2.3) 06/10/23 06:12 Total Bilirubin 0.9 mg/dL (0.2-1.0) 06/09/23 09:53 AST 13 IU/L (10-42) 06/09/23 09:53 ALT 10 IU/L (10-60) 06/09/23 09:53 Alkaline Phosphatase 76 IU/L (42-121) 06/09/23 09:53 Troponin I High Sens 20.5 ng/L (2.3-14.8) H* 06/09/23 19:20 B-Natriuretic Peptide 99 pg/mL (5-100) 06/09/23 09:53 Total Protein 6.4 g/dL (6.4-8.9) 06/09/23 09:53 Albumin 3.9 g/dL (3.2-5.5) 06/09/23 09:53 Globulin 2.5 g/dL (2.1-4.2) 06/09/23 09:53 Albumin/Globulin Ratio 1.6 (1.0-2.2) 06/09/23 09:53 TSH 1.74 uIU/mL (0.34-5.60) 06/10/23 06:12 Urine Color DARK YELLOW 06/09/23 12:25 Urine Clarity CLOUDY (CLEAR) 06/09/23 12:25 Urine pH 6.0 PH (5.0-7.5) 06/09/23 12:25 Ur Specific [place] 1.025 (1.002-1.030) 06/09/23 12:25 Urine Protein TRACE mg/dL (NEGATIVE) 06/09/23 12:25 Urine Glucose (UA) 250 mg/dL (NEGATIVE) H 06/09/23 12:25 Urine Ketones NEGATIVE mg/dL (NEGATIVE) 06/09/23 12:25 Urine Occult Blood LARGE (NEGATIVE) H 06/09/23 12:25 Urine Nitrite NEGATIVE (NEGATIVE) 06/09/23 12:25 Urine Bilirubin NEGATIVE (NEGATIVE) 06/09/23 12:25 Urine Urobilinogen 0.2 (NORMAL) E.U./dL (NORMAL) 06/09/23 12:25 Ur Leukocyte Esterase NEGATIVE (NEGATIVE) 06/09/23 12:25 Urine RBC TNTC /HPF (0-5) H 06/09/23 12:25 Urine WBC 4-5 /HPF (0-5) 06/09/23 12:25 Ur Squamous Epith Cells MOD Squamous (<= Few) H 06/09/23 12:25 Urine Crystals >50 Calcium Oxalate /LPF 06/09/23 12:25 Urine Bacteria Moderate /HPF (None Seen) H 06/09/23 12:25 Urine Mucus Few Strands 06/09/23 12:25 Ur Microscopic Review INDICATED 06/09/23 12:25 Urine Culture Comments NOT INDICATED 06/09/23 12:25 Nasal Adenovirus (PCR) NOT DETECTED 06/09/23 09:50 Nasal B. parapertussis DNA (PCR) NOT DETECTED 06/09/23 09:50 Nasal Coronavir 229E PCR NOT DETECTED 06/09/23 09:50 Nasal Coronavir HKU1 PCR NOT DETECTED 06/09/23 09:50 Nasal Coronavir NL63 PCR NOT DETECTED 06/09/23 09:50 Nasal Coronavir OC43 PCR NOT DETECTED 06/09/23 09:50 Nasal Enterovir/Rhinovir PCR NOT DETECTED 06/09/23 09:50 Nasal Influenza B PCR NOT DETECTED 06/09/23 09:50 Nasal Influenza A PCR NOT DETECTED 06/09/23 09:50 Nasal Parainfluen 1 PCR NOT DETECTED 06/09/23 09:50 Nasal Parainfluen 2 PCR NOT DETECTED 06/09/23 09:50 Nasal Parainfluen 3 PCR NOT DETECTED 06/09/23 09:50 Nasal Parainfluen 4 PCR NOT DETECTED 06/09/23 09:50 Nasal RSV (PCR) NOT DETECTED 06/09/23 09:50 Nasal B.pertussis DNA PCR NOT DETECTED 06/09/23 09:50 Nasal C.pneumoniae (PCR) NOT DETECTED 06/09/23 09:50 [place] Human Metapneumo PCR NOT DETECTED 06/09/23 09:50 Nasal M.pneumoniae (PCR) NOT DETECTED 06/09/23 09:50 Nasal SARS-CoV-2 (PCR) NOT DETECTED 06/09/23 09:50
[2023-06-10] MEDS ORDERED: ZOLPIDEM 5 MG TABLET PO SCH (21:00)
[2023-06-10] MEDS ORDERED: carvediloL 3.125 MG TABLET PO SCH (21:00)
[2023-06-10] MEDS ORDERED: SODIUM CHLORIDE 0.9% 500 ML IV ONE (23:53)
--- NOTE | 2023-06-11 00:11 | PROVIDER PROGRESS NOTE ---
Artifacts Conservator Note - Artifacts Conservator Note Artifacts Conservator Note: nurse called pt hypoxic and hypotensieve pt assessed with video with nurse at bedside bp 80s/50s and requiring 15 L o2 now chart reviewed pt here with chf and new afib stat abg, cxr, troponin, ekg and bipap and levafed drip ordered hold antihypertensieve for now transfer to icu discussed with nurse
[2023-06-11 00:13] LABS: ABG PO2 77 mmHg (80-100)
[2023-06-11 00:14] LABS: ABG BASE EXCESS 15.3 mmol/L (-2.0-3.0); ABG OXYGEN SATURATION 92 % (94-98)
[2023-06-11 00:16] LABS: ABG PCO2 147 mmHg (34-45); ABG PH 7.15 (7.35-7.45); ABG TCO2 54.5 MMOL/L (21.0-29.0)
[2023-06-11 00:51] LABS: CALCIUM 9.4 mg/dL (8.5-10.3); CREATININE 0.6 mg/dL (0.6-1.3); POTASSIUM 4.2 mmol/L (3.5-4.5)
[2023-06-11] MEDS: NOREPINEPHRINE/0.9 % NS 8 MG/250 ML BAG IV SCH ×2 (00:53→14:30)
[2023-06-11] MEDS: SODIUM CHLORIDE FLUSH 0.9% 10 ML SYRINGE IVP SCH ×3 (01:01→16:31)
[2023-06-11 01:36] LABS: ABG PH 7.26 (7.35-7.45); ABG PO2 143 mmHg (80-100)
[2023-06-11 01:37] LABS: ABG BASE EXCESS 11.9 mmol/L (-2.0-3.0); ABG OXYGEN SATURATION 99 % (94-98)
[2023-06-11 01:38] LABS: ABG PCO2 98 mmHg (34-45)
--- NOTE | 2023-06-11 02:34 | MISCELLANEOUS PROVIDER NOTE ---
Miscellaneous Provider Note - - Note: Consult Information Member Facility: [facility] Facility Requesting Clinician: Jaosn Kearns Patient Name: Katherin Foss Date of : 1970 Gender: Female Reason for Consult Reason for Consult: Other Emergent Clinical Note Clinical Note: per rn - "52F full code just transferred to ICU for resp fail, CHF, BIPAP. Patient was more awake and alert and is adamantly against intubation. Our ED physician inserted a central line on the patient but would like to speak with you regarding goals of care. Her phone number is ext [phone]. Repeat ABG shows much improvement while on BIPAP, pH 7.26, pCO2 98, pO2 143." discussed above with ed provider pt feeling better on bipap and declines intubation code status for pt to be DO NOT INTUBATE STATUS
--- NOTE | 2023-06-11 03:16 | ED Physician Documentation ---
ED Addendum - Addendum Addendum: 06/11/23 03:06 Telehealth contacted me overnight to request I intubate the patient and insert central line. Upon my evaluation patient was sitting up in bed speaking in full sentences with her BiPAP mask on. I explained to her the process of intubation (place a tube in the throat and place her on a ventilator to help her breathe) and she adamantly said, "No" but did agree to emergent central line placement. Patient was sterilely draped and R IJ placed without complication. 1 attempt, EBL 10cc. confirmed placement via CXR. After central line placement I discussed with telehealth regarding patient request to be DNI. I also note that her H&P states "...CODE BLUE wishes and she wants to be resuscitated but wants to be a DO NOT INTUBATE". The primary team will need to have continuing goals of care conversation with patient and update status accordingly.
[2023-06-11] MEDS: FUROSEMIDE 20 MG/2 ML VIAL IVP SCH ×2 (05:04→13:49)
[2023-06-11 05:24] LABS: BUN - BLOOD UREA NITROGEN 12 mg/dL (6-20); CALCIUM 9.6 mg/dL (8.5-10.3); CARBON DIOXIDE - CO2 > 45 mmol/L (21-32); CHLORIDE 94 mmol/L (101-111); CREATININE 0.6 mg/dL (0.6-1.3); GFR - MDRD 105 (>89); GLUCOSE 298 mg/dL (74-104); POTASSIUM 4.3 mmol/L (3.5-4.5); SODIUM 141 mmol/L (135-145)
[2023-06-11] MEDS ORDERED: FAMOTIDINE 20 MG/2 ML VIAL IVP STA (05:35)
[2023-06-11] MEDS ORDERED: diphenhydrAMINE INJ 50 MG/ML VIAL IVP STA (05:35)
--- NOTE | 2023-06-11 05:38 | PROVIDER PROGRESS NOTE ---
Strap Folding Machine Operator Note - Strap Folding Machine Operator Note Strap Folding Machine Operator Note: Consult Information Member Facility: [facility] Requesting Clinician: Amber Andrew RN Patient Name: Reginaldo Arnold Date of : 1950-05-14 Gender: Male Reason for Consult Reason for Consult: Other Emergent Clinical Note Clinical Note: per rn - "Patient had 255 ml of blood transfused. Patient uses urinal, no blood noted in urine until now. Lab called, blood stopped. Lab here to draw for major blood reaction. VSS. Lab took blood product as per protocol." check cbc now pepcid iv x 1 benadryl iv x 1 continue close monitoring
[2023-06-11 06:16] LABS: BASOPHILS % (AUTO) 0.4 %; EOSINOPHILS # (AUTO) 0.2 10^3/uL (0.0-0.7); EOSINOPHILS % (AUTO) 1.5 %; HCT - HEMATOCRIT 45.1 % (37.0-47.0); HGB - HEMOGLOBIN 12.2 g/dL (12.0-16.0); LYMPHOCYTES # (AUTO) 2.4 10^3/uL (1.5-3.5); LYMPHOCYTES % (AUTO) 23.7 %; MEAN CORPUSCULAR HEMOGLOBIN 25.5 pg (27.0-31.0); MEAN CORPUSCULAR HGB CONC 27.1 g/dL (32.0-36.0); MEAN CORPUSCULAR VOLUME 94.2 fL (81.0-99.0); MONOCYTES % (AUTO) 9.5 %; NEUTROPHILS # (AUTO) 6.6 10^3/uL (1.5-6.6); NEUTROPHILS % (AUTO) 64.4 %; NRBC ABSOLUTE COUNT (AUTO) 0.04 x10^3/uL; NUCLEATED RED BLOOD CELLS AUTO 0.4 /100WBC; PLT - PLATELET COUNT 234 10^3/uL (130-450); RED BLOOD COUNT 4.79 10^6/uL (4.20-5.40); RED CELL DISTRIBUTION WIDTH 15.2 % (12.0-15.0); WHITE BLOOD COUNT 10.3 x10^3/uL (4.8-10.8)
--- NOTE | 2023-06-11 08:16 | XRAY Report ---
PROCEDURE: Chest for Line Placement INDICATIONS: centeral line placement TECHNIQUE: One view of the chest was acquired. COMPARISON: None. FINDINGS: Surgical changes and devices: Right internal jugular central venous catheter tip is in SVC Lungs and pleura: Pulmonary vascular congestion. Small bilateral pleural effusion is seen. Hazy airsp kate opacities are noted in bilateral lung calloway worsening compared to previous study. No gross pneum othorax. Mediastinum: Mediastinal contours appear normal. Heart size is normal. Bones and chest wall: No suspicious bony lesions. Overlying soft tissues appear unremarkable. IMPRESSION: 1. Right-sided central venous catheter tip is in the SVC. 2. Worsening bilateral lung aeration suggestive of worsening pulmonary edema. Underlying patchy infil trates cannot be excluded. No pneumothorax. Suggestion of small bilateral pleural effusion. Findings are concordant with preliminary interpretation provided by [facility]. Reviewed by: Kelvin Castellon MD on 06/11/2023 8:15 AM PDT Approved by: Kelvin Castellon MD on 06/11/2023 8:15 AM PDT Station ID: [id number]
[2023-06-11] MEDS: INSULIN LISPRO 300 UNIT/3 ML PEN SUBQ SCH ×4 (08:33→20:49)
[2023-06-11] MEDS: INSULIN GLARGINE-YFGN 300 UNIT/3 ML PEN SUBQ SCH ×2 (08:34→20:47)
[2023-06-11] MEDS: ENOXAPARIN 40 MG/0.4 ML SYRINGE SUBQ SCH (08:35)
[2023-06-11] MEDS: GABAPENTIN 300 MG CAPSULE PO SCH (08:35)
[2023-06-11 08:58] LABS: CALCIUM, IONIZED 1.19 mmol/L (1.15-1.33); VBG PH 7.239 (7.31-7.41)
[2023-06-11 09:09] LABS: MAGNESIUM 1.6 mg/dL (1.7-2.3); PHOSPHORUS 4.1 mg/dL (2.5-5.0); POTASSIUM 4.1 mmol/L (3.5-4.5)
[2023-06-11] MEDS ORDERED: INSULIN GLARGINE-YFGN 300 UNIT/3 ML PEN SUBQ ONE (09:28)
[2023-06-11] MEDS ORDERED: MAGNESIUM SULFATE 2 GRAM 2 GM/50 ML BAG IV ONE ×2 (09:49→16:24)
[2023-06-11 10:09] LABS: ABG HCO3 47.1 mmol/L (22.0-26.0); ABG PO2 64 mmHg (80-100)
[2023-06-11 10:10] LABS: ABG BASE EXCESS 13.9 mmol/L (-2.0-3.0); ABG OXYGEN SATURATION 90 % (94-98); ABG RESPIRATORY RATE 15 b/min; ALLEN TEST POSITIVE
[2023-06-11 10:12] LABS: ABG PCO2 123 mmHg (34-45); ABG TCO2 50.9 MMOL/L (21.0-29.0)
[2023-06-11 11:15] LABS: ABG PH 7.25 (7.35-7.45); ABG PO2 69 mmHg (80-100)
[2023-06-11 11:16] LABS: ABG HCO3 42.3 mmol/L (22.0-26.0); ABG OXYGEN SATURATION 93 % (94-98); ALLEN TEST POSITIVE
[2023-06-11 11:18] LABS: ABG PCO2 99 mmHg (34-45); ABG TCO2 45.4 MMOL/L (21.0-29.0)
[2023-06-11] MEDS: FAMOTIDINE 20 MG/2 ML VIAL IVP SCH ×2 (11:56→20:47)
--- NOTE | 2023-06-11 12:58 | XRAY Report ---
PROCEDURE: Chest 1 View X-Ray INDICATIONS: Hypoxia, eval for pneumonia TECHNIQUE: One view of the chest was acquired. COMPARISON: None. FINDINGS: Surgical changes and devices: Right internal jugular central venous catheter tip is in SVC.. Lungs and pleura: No pleural effusions or pneumothorax. There is pulmonary vascular congestion. Smal l left greater than right bilateral pleural effusion is seen with bibasilar atelectasis. No gross pne umothorax. Hazy opacity in bilateral lung calloway are also noted suggestive of pulmonary edema. No pne umothorax Mediastinum: Mediastinal contours appear normal. Heart size is enlarged. Bones and chest wall: No suspicious bony lesions. Overlying soft tissues appear unremarkable. IMPRESSION: Finding is suggestive of CHF with cardiomegaly, pulmonary vascular congestion, small bila teral pleural effusion and pulmonary edema. Underlying bilateral lower lobe infiltrates cannot be exc luded. Right-sided central venous catheter tip is in SVC. Reviewed by: Kelvin Castellon MD on 06/11/2023 12:57 PM PDT Approved by: Kelvin Castellon MD on 06/11/2023 12:57 PM PDT Station ID: [id number]
[2023-06-11 13:32] LABS: ABG HCO3 45.7 mmol/L (22.0-26.0); ABG PH 7.28 (7.35-7.45); ABG PO2 84 mmHg (80-100)
[2023-06-11 13:33] LABS: ABG BASE EXCESS 14.5 mmol/L (-2.0-3.0); ABG OXYGEN SATURATION 96 % (94-98); ABG RESPIRATORY RATE 20 b/min; ALLEN TEST POSITIVE
[2023-06-11 13:37] LABS: ABG PCO2 99 mmHg (34-45); ABG TCO2 48.7 MMOL/L (21.0-29.0)
--- NOTE | 2023-06-11 14:22 | ADVANCE CARE PLANNING NOTE ---
Advance Care Planning - Planning Encounter Date: 06/11/23 Time: 14:00 Purpose: To review her critical status with mother and sister in person To reestablish the patient's CODE BLUE wishes Parties in Attendance: I spoke to the mother and the daughter in a separate room outside the patient's room Decisional Capacity of the Patient: The patient is currently obtunded, has CO2 narcosis. At admission the patient was lucid and communicative and did already discuss her own wishes regarding CODE BLUE status. The patient knew she wanted to allow CPR and defibrillation but wanted to be a DO NOT INTUBATE. This was ordered on the day of admission. - Diagnosis for Encounter (1) Acute respiratory failure with hypoxia and hypercarbia Summary: The patient was admitted for CHF and was diuresing for several days. She had CO2 retention by virtue of having a high bicarb on her BMP, at admission. She became more somnolent last night and was transferred to the ICU, and was put on BiPAP, since her ABG showed respiratory acidosis and hypoxia. - Encounter Subjective/Patient's Story: The patient has Myotonic Dystrophy and DM and is on Insulin. Her father of respiratory complications from Myotinic Dystrophy and one of her 2 sisters has MD. She presented with hypoxia, anasarca and pulmonary edema and was in new on set afib and has LBBB on EKG (no old EKG avail for comparison). The patient denied having known Afib. She was started on iv BID Lasix and suppl O2, keeping O2 sats at 92%. Her DM was managed with Insulin. The patient was admitted for CHF and was diuresing for several days. She had CO2 retention by virtue of having a high bicarb on her BMP, at admission. She became more somnolent last night and was transferred to the ICU, and was put on BiPAP, since her ABG showed respiratory acidosis and hypoxia. Objective/Medical Story: The patient was admitted for new onset CHF and new onset Afib, and has been diuresing for several days. She was also on Insulin for her Hx of DM. She had presumed CO2 retention by virtue of having a high bicarb on her BMP, at admission, and I suspected she had sleep apnea or obesity hypoventilation syndrome exacerbated by her muscle weakness from underlying Myotonic Dystrophy. She did not disclose her Hx of sleep apnea or that she was non-compliant with being on CPAP. She did not disclose that she has a home O2 tank, but was not using it. She became more somnolent last night and was transferred to the ICU, and was put on BiPAP, since her ABG showed respiratory acidosis and hypoxia. Her ABGs continue to show respiratory acidosis, despite escalating settings being adjusted on the BIPAP machine to increase her ventilation. Goals of Care: Family wants her to be comfortable. The family first wants me to reach out to a fisher sponge hooking because of her respiratory acidosis and a neurologist because of her muscular dystrophy to ask if any other options exist, short of putting her on a ventilator. If there are no other suggestions, they do want to start comfort measures, like using IV morphine. I told the mother and sister that the patient is critical and will probably not survive more than a day at this point. The patient remains a full code but does not want intubation. Plan: I put out a call to to speak to a Casework Manager at 1430. I am waiting for a call back. I got a call back and discuussed the case. The Scheduling Manager said we are doing everything right, she had no other suggestions. I reported this to the mother and sister. Code Status: Attempt Resuscitation (BUT DNI) Time spent on advance care plannin
--- NOTE | 2023-06-11 17:17 | PHARMACY PROGRESS NOTE ---
- Therapy Status Vancomycin regimen day #: 1 Therapy status: Awaiting steady state Basis for treatment: Empirical Treatment indication: HAP Trough goal: AUC/GEORGE 400-600 Concurrent antibiotics: CEFEPIME 1G Q 8H - DREAD Risk Risk level for Acute Kidney Injury: Moderate Acute Kidney Injury risk factors: Goal trough >15, Admission to ICU - Monitoring and Recommendation Clinical response to treatment: I&O Previous 24 hours 06/09/23 06/10/23 06/11/23 23:59 23:59 23:59 Intake Total 1360 1040 795.188 Output Total 3443 850 1315 Balance -690 190 -519.812 Lab Results 06/11/23 06/11/23 06/10/23 04:20 00:19 06:12 BUN 12 11 9 Creatinine 0.6 0.6 0.4 L Estimated GFR (MDRD) 105 105 167 06/09/23 09:53 BUN 11 Creatinine 0.5 L Estimated GFR (MDRD) 129 Monitoring plan: Daily serum creatinine (USING BAYESIAN METHOD, WILL OBTAIN PK AND TR EARLY AND TARGET AUC/GEORGE BETWEEN 400-600. LD= 2G, MAINTAINENCE=1.5GQ12H.)
[2023-06-11] MEDS ORDERED: VANCOMYCIN INJ 2 GM in SODIUM CHLORIDE 0.9% 500 ML IV ONE (18:00)
[2023-06-11] MEDS: ACETAMINOPHEN 325 MG TABLET PO PRN (19:07)
[2023-06-11] MEDS: CEFEPIME 1 GM in SODIUM CHLORIDE 0.9% MINIBAG 100 ML IV SCH (21:17)
[2023-06-11] MEDS: ACETAMINOPHEN 1,000 MG/100 ML 1,000 MG/100 ML BAG IV PRN (23:43)
[2023-06-12] MEDS ORDERED: LORazepam 2 MG/ML VIAL IVP PRN (01:30)
[2023-06-12] MEDS: SODIUM CHLORIDE FLUSH 0.9% 10 ML SYRINGE IVP SCH ×4 (04:25→22:05)
[2023-06-12] MEDS: CEFEPIME 1 GM in SODIUM CHLORIDE 0.9% MINIBAG 100 ML IV SCH ×3 (05:15→21:59)
[2023-06-12] MEDS: FUROSEMIDE 20 MG/2 ML VIAL IVP SCH ×2 (05:29→13:58)
[2023-06-12 05:34] LABS: BASOPHILS # (AUTO) 0.1 10^3/uL (0.0-0.1); BASOPHILS % (AUTO) 0.6 %; EOSINOPHILS # (AUTO) 0.2 10^3/uL (0.0-0.7); EOSINOPHILS % (AUTO) 1.7 %; HCT - HEMATOCRIT 39.4 % (37.0-47.0); HGB - HEMOGLOBIN 10.9 g/dL (12.0-16.0); LYMPHOCYTES # (AUTO) 2.3 10^3/uL (1.5-3.5); MEAN CORPUSCULAR HGB CONC 27.7 g/dL (32.0-36.0); MEAN CORPUSCULAR VOLUME 90.4 fL (81.0-99.0); MEAN PLATELET VOLUME 10.3 fL (7.9-10.8); MONOCYTES # (AUTO) 0.8 10^3/uL (0.0-1.0); MONOCYTES % (AUTO) 9.5 %; NEUTROPHILS # (AUTO) 5.4 10^3/uL (1.5-6.6); NEUTROPHILS % (AUTO) 61.9 %; PLT - PLATELET COUNT 180 10^3/uL (130-450); RED BLOOD COUNT 4.36 10^6/uL (4.20-5.40); RED CELL DISTRIBUTION WIDTH 15.1 % (12.0-15.0); WHITE BLOOD COUNT 8.8 x10^3/uL (4.8-10.8)
[2023-06-12 05:38] LABS: CALCIUM, IONIZED 1.17 mmol/L (1.15-1.33); VBG PH 7.34 (7.31-7.41)
[2023-06-12 06:37] LABS: PHOSPHORUS 2.1 mg/dL (2.5-5.0); VANCOMYCIN,TROUGH 16.5 ug/mL
[2023-06-12] MEDS: VANCOMYCIN INJ 1 GM, VANCOMYCIN INJ 500 MG in SODIUM CHLORIDE 0.9% 500 ML IV SCH ×2 (06:51→19:24)
[2023-06-12 06:56] LABS: CALCIUM 9.1 mg/dL (8.5-10.3); CREATININE 0.4 mg/dL (0.6-1.3); POTASSIUM 3.3 mmol/L (3.5-4.5)
--- NOTE | 2023-06-12 07:53 | PROVIDER PROGRESS NOTE ---
Subjective - Subjective Pt reports feeling: Worse (She is in the ICU, obtunded, on a BIPAP machine) Objective - Vital Signs/Intake & Output Reviewed Vital Signs: Yes Vital Signs: Vital Signs Temp Pulse Pulse Resp BP Pulse Ox 06/12/23 07:00 37.3 C 83 20 92/57 L 96 06/12/23 06:52 89 06/12/23 06:00 37.3 C 86 25 H 106/57 L 98 06/12/23 05:50 106/65 06/12/23 05:45 102/60 06/12/23 05:40 101/62 06/12/23 05:39 78 06/12/23 05:25 95/83 H 06/12/23 05:20 109/70 06/12/23 05:10 106/67 06/12/23 05:05 110/69 06/12/23 05:00 37.2 C 84 24 119/63 100 06/12/23 04:00 37.3 C 82 24 101/60 97 Intake & Output: Intake & Output 06/09/23 06/10/23 06/11/23 06/12/23 23:59 23:59 23:59 23:59 Intake Total 1360 1040 1588.688 283.50 Output Total 2050 850 1619 461 Balance -690 190 -30.312 -177.50 - Objective General Appearance: positive: Lethargic (Opens her eyes and tried to smile to vouce), Other (On BIPAP) Eyes Bilateral: positive: Normal inspection, No lid inflammation ENT: positive: Dry mucous membranes, Other (On BIPAP mask) Neck: positive: Nml inspection, Other (Obese and cannot exclude elevated JVP) Respiratory: positive: Other (Shallow air mvm, distant breath sounds, poss rale at beases, getting BIPAP ventil) Cardiovascular: positive: Other (distant heart sounds due to BIPAP ventil) Abdomen: positive: Non-tender, Other (Obese w/ pannus, soft) Skin: positive: Warm, Dry Extremities: positive: Other (4+ pitting edema to upper thighs) - Lab Results Fish Bones: 06/13/23 05:25 06/13/23 05:25 Other Labs: Lab Results x24hrs 06/12/23 06/12/23 06/12/23 Range/Units 04:50 04:50 04:50 WBC 8.8 (4.8-10.8) x10^3/uL RBC 4.36 (4.20-5.40) 10^6/uL Hgb 10.9 L (12.0-16.0) g/dL Hct 39.4 (37.0-47.0) % MCV 90.4 (81.0-99.0) fL MCH 25.0 L (27.0-31.0) pg MCHC 27.7 L (32.0-36.0) g/dL RDW 15.1 H (12.0-15.0) % Plt Count 180 (130-450) 10^3/uL MPV 10.3 (7.9-10.8) fL Neut # (Auto) 5.4 (1.5-6.6) 10^3/uL Lymph # (Auto) 2.3 (1.5-3.5) 10^3/uL [place] # (Auto) 0.8 (0.0-1.0) 10^3/uL Eos # (Auto) 0.2 (0.0-0.7) 10^3/uL Baso # (Auto) 0.1 (0.0-0.1) 10^3/uL Absolute Nucleated RBC 0.00 x10^3/uL Nucleated RBC % 0.0 /100WBC Bld Gas Analysis Time Sample Site ABG pH (7.35-7.45) ABG pCO2 (34-45) mmHg ABG pO2 (80-100) mmHg ABG HCO3 (22.0-26.0) mmol/L ABG Total CO2 (21.0-29.0) MMOL/L ABG O2 Saturation (94-98) % ABG Base Excess (-2.0-3.0) mmol/L Davie Test VBG pH 7.340 (7.31-7.41) Ionized Calcium 1.17 (1.15-1.33) mmol/L Respiration Rate b/min O2 Delivery Device FiO2 EPAP cmH2O IPAP cmH2O Sodium (135-145) mmol/L Potassium (3.5-4.5) mmol/L Chloride (101-111) mmol/L Carbon Dioxide (21-32) mmol/L Anion Gap (6-13) BUN (6-20) mg/dL Creatinine (0.6-1.3) mg/dL Estimated GFR (MDRD) (>89) Glucose (74-104) mg/dL POC Whole Bld Glucose (70 - 100) mg/dL Calcium (8.5-10.3) mg/dL Phosphorus 2.1 L (2.5-5.0) mg/dL Magnesium 2.0 (1.7-2.3) mg/dL Troponin I High Sens (2.3-14.8) ng/L Last Dose Date 06/12/23 Last Dose Time 0651 Vancomycin Peak (20.0-40.0) ug/mL Vancomycin Trough 16.5 ug/mL 06/12/23 06/11/23 06/11/23 Range/Units 04:50 21:00 20:28 WBC (4.8-10.8) x10^3/uL RBC (4.20-5.40) 10^6/uL Hgb (12.0-16.0) g/dL Hct (37.0-47.0) % MCV (81.0-99.0) fL MCH (27.0-31.0) pg MCHC (32.0-36.0) g/dL RDW (12.0-15.0) % Plt Count (130-450) 10^3/uL MPV (7.9-10.8) fL Neut # (Auto) (1.5-6.6) 10^3/uL Lymph # (Auto) (1.5-3.5) 10^3/uL [place] # (Auto) (0.0-1.0) 10^3/uL Eos # (Auto) (0.0-0.7) 10^3/uL Baso # (Auto) (0.0-0.1) 10^3/uL Absolute Nucleated RBC x10^3/uL Nucleated RBC % /100WBC Bld Gas Analysis Time Sample Site ABG pH (7.35-7.45) ABG pCO2 (34-45) mmHg ABG pO2 (80-100) mmHg ABG HCO3 (22.0-26.0) mmol/L ABG Total CO2 (21.0-29.0) MMOL/L ABG O2 Saturation (94-98) % ABG Base Excess (-2.0-3.0) mmol/L Davie Test VBG pH (7.31-7.41) Ionized Calcium (1.15-1.33) mmol/L Respiration Rate b/min O2 Delivery Device FiO2 EPAP cmH2O IPAP cmH2O Sodium 143 (135-145) mmol/L Potassium 3.3 L (3.5-4.5) mmol/L Chloride 97 L (101-111) mmol/L Carbon Dioxide 45 H* (21-32) mmol/L Anion Gap 1.0 L (6-13) BUN 8 (6-20) mg/dL Creatinine 0.4 L (0.6-1.3) mg/dL Estimated GFR (MDRD) 167 (>89) Glucose 103 (74-104) mg/dL POC Whole Bld Glucose 212 H (70 - 100) mg/dL Calcium 9.1 (8.5-10.3) mg/dL Phosphorus (2.5-5.0) mg/dL Magnesium (1.7-2.3) mg/dL Troponin I High Sens (2.3-14.8) ng/L Last Dose Date 06/11/23 Last Dose Time 1634 Vancomycin Peak 43.7 H (20.0-40.0) ug/mL Vancomycin Trough ug/mL 06/11/23 06/11/23 06/11/23 Range/Units 16:46 15:30 13:20 WBC (4.8-10.8) x10^3/uL RBC (4.20-5.40) 10^6/uL Hgb (12.0-16.0) g/dL Hct (37.0-47.0) % MCV (81.0-99.0) fL MCH (27.0-31.0) pg MCHC (32.0-36.0) g/dL RDW (12.0-15.0) % Plt Count (130-450) 10^3/uL MPV (7.9-10.8) fL Neut # (Auto) (1.5-6.6) 10^3/uL Lymph # (Auto) (1.5-3.5) 10^3/uL [place] # (Auto) (0.0-1.0) 10^3/uL Eos # (Auto) (0.0-0.7) 10^3/uL Baso # (Auto) (0.0-0.1) 10^3/uL Absolute Nucleated RBC x10^3/uL Nucleated RBC % /100WBC Bld Gas Analysis Time 13:20 Sample Site RIGHT RADIAL ABG pH 7.28 L (7.35-7.45) ABG pCO2 99 H* (34-45) mmHg ABG pO2 84 (80-100) mmHg ABG HCO3 45.7 H (22.0-26.0) mmol/L ABG Total CO2 48.7 H* (21.0-29.0) MMOL/L ABG O2 Saturation 96 (94-98) % ABG Base Excess 14.5 H (-2.0-3.0) mmol/L Davie Test POSITIVE VBG pH (7.31-7.41) Ionized Calcium (1.15-1.33) mmol/L Respiration Rate 20 b/min O2 Delivery Device BiPAP FiO2 75.00 EPAP 8 cmH2O IPAP 20 cmH2O Sodium (135-145) mmol/L Potassium (3.5-4.5) mmol/L Chloride (101-111) mmol/L Carbon Dioxide (21-32) mmol/L Anion Gap (6-13) BUN (6-20) mg/dL Creatinine (0.6-1.3) mg/dL Estimated GFR (MDRD) (>89) Glucose (74-104) mg/dL POC Whole Bld Glucose 171 H (70 - 100) mg/dL Calcium (8.5-10.3) mg/dL Phosphorus (2.5-5.0) mg/dL Magnesium 1.8 (1.7-2.3) mg/dL Troponin I High Sens (2.3-14.8) ng/L Last Dose Date Last Dose Time Vancomycin Peak (20.0-40.0) ug/mL Vancomycin Trough ug/mL 06/11/23 06/11/23 06/11/23 Range/Units 11:31 11:28 11:05 WBC (4.8-10.8) x10^3/uL RBC (4.20-5.40) 10^6/uL Hgb (12.0-16.0) g/dL Hct (37.0-47.0) % MCV (81.0-99.0) fL MCH (27.0-31.0) pg MCHC (32.0-36.0) g/dL RDW (12.0-15.0) % Plt Count (130-450) 10^3/uL MPV (7.9-10.8) fL Neut # (Auto) (1.5-6.6) 10^3/uL Lymph # (Auto) (1.5-3.5) 10^3/uL [place] # (Auto) (0.0-1.0) 10^3/uL Eos # (Auto) (0.0-0.7) 10^3/uL Baso # (Auto) (0.0-0.1) 10^3/uL Absolute Nucleated RBC x10^3/uL Nucleated RBC % /100WBC Bld Gas Analysis Time 1105 Sample Site RIGHT RADIAL ABG pH 7.25 L (7.35-7.45) ABG pCO2 99 H* (34-45) mmHg ABG pO2 69 L (80-100) mmHg ABG HCO3 42.3 H (22.0-26.0) mmol/L ABG Total CO2 45.4 H* (21.0-29.0) MMOL/L ABG O2 Saturation 93 L (94-98) % ABG Base Excess 11.0 H (-2.0-3.0) mmol/L Davie Test POSITIVE VBG pH (7.31-7.41) Ionized Calcium (1.15-1.33) mmol/L Respiration Rate b/min O2 Delivery Device BiPAP FiO2 70.00 EPAP 8 cmH2O IPAP 18 cmH2O Sodium (135-145) mmol/L Potassium (3.5-4.5) mmol/L Chloride (101-111) mmol/L Carbon Dioxide (21-32) mmol/L Anion Gap (6-13) BUN (6-20) mg/dL Creatinine (0.6-1.3) mg/dL Estimated GFR (MDRD) (>89) Glucose (74-104) mg/dL POC Whole Bld Glucose 248 H (70 - 100) mg/dL Calcium (8.5-10.3) mg/dL Phosphorus (2.5-5.0) mg/dL Magnesium (1.7-2.3) mg/dL Troponin I High Sens 36.4 H* (2.3-14.8) ng/L Last Dose Date Last Dose Time Vancomycin Peak (20.0-40.0) ug/mL Vancomycin Trough ug/mL 06/11/23 06/11/23 06/11/23 Range/Units 10:00 08:30 08:30 WBC (4.8-10.8) x10^3/uL RBC (4.20-5.40) 10^6/uL Hgb (12.0-16.0) g/dL Hct (37.0-47.0) % MCV (81.0-99.0) fL MCH (27.0-31.0) pg MCHC (32.0-36.0) g/dL RDW (12.0-15.0) % Plt Count (130-450) 10^3/uL MPV (7.9-10.8) fL Neut # (Auto) (1.5-6.6) 10^3/uL Lymph # (Auto) (1.5-3.5) 10^3/uL [place] # (Auto) (0.0-1.0) 10^3/uL Eos # (Auto) (0.0-0.7) 10^3/uL Baso # (Auto) (0.0-0.1) 10^3/uL Absolute Nucleated RBC x10^3/uL Nucleated RBC % /100WBC Bld Gas Analysis Time 1000 Sample Site RIGHT RADIAL ABG pH 7.20 L* (7.35-7.45) ABG pCO2 123 H* (34-45) mmHg ABG pO2 64 L (80-100) mmHg ABG HCO3 47.1 H (22.0-26.0) mmol/L ABG Total CO2 50.9 H* (21.0-29.0) MMOL/L ABG O2 Saturation 90 L (94-98) % ABG Base Excess 13.9 H (-2.0-3.0) mmol/L Davie Test POSITIVE VBG pH 7.239 L (7.31-7.41) Ionized Calcium 1.19 (1.15-1.33) mmol/L Respiration Rate 15 b/min O2 Delivery Device BiPAP FiO2 70.00 EPAP 5 cmH2O IPAP 12 cmH2O Sodium (135-145) mmol/L Potassium 4.1 (3.5-4.5) mmol/L Chloride (101-111) mmol/L Carbon Dioxide (21-32) mmol/L Anion Gap (6-13) BUN (6-20) mg/dL Creatinine (0.6-1.3) mg/dL Estimated GFR (MDRD) (>89) Glucose (74-104) mg/dL POC Whole Bld Glucose (70 - 100) mg/dL Calcium (8.5-10.3) mg/dL Phosphorus 4.1 (2.5-5.0) mg/dL Magnesium 1.6 L (1.7-2.3) mg/dL Troponin I High Sens (2.3-14.8) ng/L Last Dose Date Last Dose Time Vancomycin Peak (20.0-40.0) ug/mL Vancomycin Trough ug/mL Assessment/Plan - Problem List (1) Acute respiratory acidosis Impression: She became more somnolent overnight, telemedicine doctor ordered an ABG. She is found to be extremely acidotic with pH 7.19 with CO2 retention, PCO2 was 147. She was moved into the ICU. She is on BiPAP. Her settings are being adjusted up Her repeat ABGs show only minimal improvement with persistent acidosis running 7.25 (all labs were reviewed), and CO2 retention is slightly improving, her best PCO2 was 99. EKG mitchell today, I interpreted: Atrial fib, rate 94, indeterminate BBB, LVH. Since EKG from 06/09/2023, LBBB is now absent Plan: The patient is critically ill. Remain in ICU on BIPAP. I will change her diet to pureed, in case she can swallow some nutrition, being off BIPAP briefly Since she does not want intubation and to be put on a ventilator we will continue with ventilating her using BiPAP, very aggressive setting adjustments I discussed the critical condition with the patient's mother and sister at bedside. They have requested that I speak to somebody at [facility] for additional input from order caller. I spoke to the Embossing Press Operator/Suspension Cord Tier today at [facility] and reviewed the entire case. No additional recommendations were given to me, and I was told we are doing everything that we can. I checked on the patient this morning, then in the afternoon with the family at bedside and then before leaving my shift, saw her at 1830 CRITICAL CARE TIME SPENT: 70 min (Evaluating and reevaluating patient during the day, adjusting medications, reevaluating her ABG, adjusting her BiPAP settings throughout the day, speaking with Embossing Press Operator ) (2) CO2 narcosis Impression: Her ABGs show severe CO2 retention, the highest PCO2 was 147. Her best was PCO2 of 99 today, on BIPAP She is obtunded, moans and withdraws to painful stimuli in the morning. When I saw her in the afternoon she was able to come off BiPAP briefly and speak softly, but appeared very lethargic. She could not feed herself, the mother is feeding her pureed dinner. Plan: BIPAP overnight each night and when needed daytime Encourage deep breaths when awake and IS when awake (3) Acute respiratory failure with hypoxia and hypercarbia Impression: Patient had a low O2 sat on the scene measured by EMS. Her O2 sat was 85% on room air measured in the ER. The etiology was suspected to be her pulmonary edema. Today I learned she has she sleep apnea and was prescribed a CPAP which she does not use. I suspect her muscle weakness from her Myotonic Dystrophy adds to hypoxia & hypercarbia Plan: Give supplemental O2, titrate down to room air when possible. Target O2 saturation will be 92% Avoid excessive FIO2 to prevent suppression of her hypoxic drive to ventilate (4) Pulmonary edema Conclusion/Plan: The patient did notice short of breath with activity, having orthopnea, and did notice her leg edema. On exam she has minimal improvement of her anasarca of the legs, they are not as taught, but still has pitting edema to thighs. Her Echocardiogram was done 06/10 and showed preserved LVEF and R heart enlargement plus engorged IVC. Therefore she has PFpEF. EKG was done today because of her worsening clinical condition. I interpreted the EKG: Atrial fib, rate 94, indeterminate BBB, LVH. Since EKG from 06/09/2023, LBBB is now absent Plan: Cont twice daily IV Lasix Follow I's and O's, Alegre was inserted in ICU, monitor daily weights Resume low-salt diet when she has breaks off BIPAP Follow her electrolytes and magnesium daily, replace if low Monitor on telemetry for dysrhythmias (5) Myotonic dystrophy Conclusion/Plan: As per Hx. She had evidence of weakness even in her speech, when I first met her. She claimed she can still drive a car without any extra equipment. Plan: Cont to hold her statin in case it is adding to muscle weakness (6) New onset a-fib Conclusion/Plan: This was seen at admission & patient denied feeling palpitations at admission. She says she has never been told the diagnosis of atrial fib. Her EKG showed atrial fib but the heart rate was not extremely rapid. VS were reviewed. Her HR is running 90-110. Troponins have ruled out ACS as the cause Her TSH ruled out hyperthyroidism as the cause Her Echo showed a preserved ejection fraction. She has diastolic heart failure however. She has a CHADSsVasc2 score of 3 (DM, CHF, Female), therefore a DOAC is considered beneficial per guidelines. However, given her propensity to fall "when her legs give out", I need to discuss the risks and benefits with pt and also with her mother, since I can see that the pt may have some cognitive impairment (she was unable to give detailed answers, was sleepy even at admission), which I think from her MD. Plan: Cont to monitor on telemetry Cont 6.25 bid for better rate control I need to discuss the risks and benefits of being on an anticoagulant with pt and also with her mother, since I can see that the pt has some cognitive impairment (unable to give detailed answers, is somewhat sleepy, which could be from her MD). (7) Left bundle branch block Conclusion/Plan: The finding of LBBB could be due to Myotonic Dystrophy, which affects the conduction system of the heart. Plan: As in #2 (8) DM type 2 (diabetes mellitus, type 2) Conclusion/Plan: As per Hx Her A1c came back at 9.2, indicating poor glu control Plan: Cont a diabetic diet, fingerstick glucose checks, sliding scale insulin, hypoglycemia protocol I have re-started her usual diabetic meds and management
[2023-06-12] MEDS ORDERED: POTASSIUM PHOSPHATE 15 MMOL in SODIUM CHLORIDE 0.9% 250 ML IV ONE (08:00)
[2023-06-12] MEDS: INSULIN LISPRO 300 UNIT/3 ML PEN SUBQ SCH ×4 (08:00→21:11)
[2023-06-12 08:33] LABS: ABG HCO3 40.3 mmol/L (22.0-26.0); ABG PH 7.41 (7.35-7.45); ABG PO2 71 mmHg (80-100)
[2023-06-12 08:34] LABS: ABG BASE EXCESS 13.1 mmol/L (-2.0-3.0); ABG OXYGEN SATURATION 94 % (94-98)
[2023-06-12 08:37] LABS: ABG PCO2 65 mmHg (34-45); ABG TCO2 42.3 MMOL/L (21.0-29.0)
[2023-06-12] MEDS: INSULIN GLARGINE-YFGN 300 UNIT/3 ML PEN SUBQ SCH ×2 (09:00→21:11)
[2023-06-12] MEDS: ACETAMINOPHEN 325 MG TABLET PO PRN ×2 (09:02→19:35)
[2023-06-12] MEDS: GABAPENTIN 300 MG CAPSULE PO SCH (09:10)
[2023-06-12] MEDS: FAMOTIDINE 20 MG/2 ML VIAL IVP SCH ×2 (09:10→21:10)
[2023-06-12] MEDS: ENOXAPARIN 40 MG/0.4 ML SYRINGE SUBQ SCH (09:15)
--- NOTE | 2023-06-12 10:42 | PHARMACY PROGRESS NOTE ---
- Therapy Status Vancomycin regimen day #: 2 Therapy status: Awaiting steady state Basis for treatment: Empirical Treatment indication: HAP. Trough goal: AUC/GEORGE 400-600 Concurrent antibiotics: CEFEPIME 1G IV Q8H - DREAD Risk Risk level for Acute Kidney Injury: Moderate Acute Kidney Injury risk factors: Goal trough >15, Admission to ICU - Monitoring and Recommendation Clinical response to treatment: I&O Previous 24 hours 06/10/23 06/11/23 06/12/23 23:59 23:59 23:59 Intake Total 1040 4565.013 6292.50 Output Total 850 1619 946 Balance 190 -30.312 77.50 Lab Results 06/12/23 06/11/23 06/11/23 04:50 04:20 00:19 BUN 8 12 11 Creatinine 0.4 L 0.6 0.6 Estimated GFR (MDRD) 167 105 105 06/10/23 06/09/23 06:12 09:53 BUN 9 11 Creatinine 0.4 L 0.5 L Estimated GFR (MDRD) 167 129 Vancomycin Monitoring 06/12/23 06/11/23 04:50 21:00 Vancomycin Peak 43.7 H Vancomycin Trough 16.5 [address] FEVER AND [address] Aponte WANTS TO COVER HAP. PK/TROUGH OBTAINED EARLY ALLOWED BY BAYESIAN METHOD TO ASSESS PT'S PK. ADJBW=70KG. I USED SCR ~1 INSTEAD OF 0.4 DUE TO PT'S AGE AND CONDITION. CLCR~ 65ML/MIN. CONTINUE VANCO 1.5G Q12H PLANNED AND ASSESS AFTER LEVEL DRAWN 06/13/23@ 0530 (TROUGH ORDERED). Monitoring plan: Daily serum creatinine (USING BAYESIAN METHOD, WILL OBTAIN PK AND TR EARLY AND TARGET AUC/GEORGE BETWEEN 400-600. LD= 2G, MAINTAINENCE=1.5GQ12H.) Areas for additional monitoring: IV to PO when appropriate, Therapy de- escalation based on culture results Pharmacy recommendation: Continue current regime
[2023-06-12] MEDS: guaiFENesin 600 MG TABLET PO SCH ×2 (13:58→21:10)
[2023-06-12] MEDS: ACETAMINOPHEN 1,000 MG/100 ML 1,000 MG/100 ML BAG IV PRN (15:45)
[2023-06-12 16:58] LABS: PHOSPHORUS 3.2 mg/dL (2.5-5.0); POTASSIUM 3.7 mmol/L (3.5-4.5)
[2023-06-12] MEDS ORDERED: POTASSIUM CHLORIDE 20 MEQ/15 ML UDC PO ONE (17:07)
[2023-06-12] MEDS ORDERED: POTASSIUM CHLORIDE 20 MEQ TABLET PO ONE (17:13)
[2023-06-12] MEDS ORDERED: SODIUM CHLORIDE 0.65% NASAL SPRAY NAS PRN (17:42)
[2023-06-12 19:25] LABS: VANCOMYCIN,TROUGH 21.2 ug/mL
[2023-06-12] MEDS ORDERED: ALPRAZolam 0.25 MG TABLET PO ONE (21:33)
--- NOTE | 2023-06-12 21:36 | PROVIDER PROGRESS NOTE ---
[employer] Safety And [employer] Specialist Note - Industrial Safety And Health Specialist Note [employer] Safety And Health Specialist Note: Xanax 0.5 mg po x one dose ordered for anxiety discussed with PILAR Gomez
[2023-06-13] MEDS: ACETAMINOPHEN 1,000 MG/100 ML 1,000 MG/100 ML BAG IV PRN (04:46)
[2023-06-13] MEDS: FUROSEMIDE 20 MG/2 ML VIAL IVP SCH ×2 (05:37→14:21)
[2023-06-13] MEDS: CEFEPIME 1 GM in SODIUM CHLORIDE 0.9% MINIBAG 100 ML IV SCH ×3 (05:48→21:41)
[2023-06-13 05:52] LABS: BASOPHILS % (AUTO) 0.8 %; CALCIUM, IONIZED 1.18 mmol/L (1.15-1.33); EOSINOPHILS # (AUTO) 0.1 10^3/uL (0.0-0.7); EOSINOPHILS % (AUTO) 2.3 %; HCT - HEMATOCRIT 38.2 % (37.0-47.0); HGB - HEMOGLOBIN 10.4 g/dL (12.0-16.0); LYMPHOCYTES # (AUTO) 1.9 10^3/uL (1.5-3.5); LYMPHOCYTES % (AUTO) 36.3 %; MEAN CORPUSCULAR HEMOGLOBIN 24.8 pg (27.0-31.0); MEAN CORPUSCULAR HGB CONC 27.2 g/dL (32.0-36.0); MEAN PLATELET VOLUME 10.9 fL (7.9-10.8); MONOCYTES # (AUTO) 0.6 10^3/uL (0.0-1.0); NEUTROPHILS # (AUTO) 2.6 10^3/uL (1.5-6.6); NEUTROPHILS % (AUTO) 49.4 %; PLT - PLATELET COUNT 153 10^3/uL (130-450); RED CELL DISTRIBUTION WIDTH 15.2 % (12.0-15.0); VBG PH 7.36 (7.31-7.41); WHITE BLOOD COUNT 5.3 x10^3/uL (4.8-10.8)
[2023-06-13 05:59] LABS: SLIDE REVIEW? Indicated
[2023-06-13 06:09] LABS: VANCOMYCIN,TROUGH 21.6 ug/mL
[2023-06-13 06:10] LABS: MAGNESIUM 1.8 mg/dL (1.7-2.3); PHOSPHORUS 2.9 mg/dL (2.5-5.0); POTASSIUM 4.2 mmol/L (3.5-4.5)
[2023-06-13 06:24] LABS: PLATELET ESTIMATE, MANUAL NORMAL (130-450,000) (NORMAL); PLATELET MORPHOLOGY NORMAL APPEARANCE (NORMAL); WBC MORPHOLOGY (MULTIPLE) NORMAL APPEARANCE (NORMAL)
[2023-06-13 08:18] LABS: CALCIUM 9.2 mg/dL (8.5-10.3); CREATININE 0.5 mg/dL (0.6-1.3); POTASSIUM 4.2 mmol/L (3.5-4.5)
[2023-06-13] MEDS: INSULIN GLARGINE-YFGN 300 UNIT/3 ML PEN SUBQ SCH ×2 (08:40→20:37)
[2023-06-13] MEDS: INSULIN LISPRO 300 UNIT/3 ML PEN SUBQ SCH ×4 (08:40→20:37)
[2023-06-13] MEDS: GABAPENTIN 300 MG CAPSULE PO SCH (08:43)
[2023-06-13] MEDS: ENOXAPARIN 40 MG/0.4 ML SYRINGE SUBQ SCH (08:43)
[2023-06-13] MEDS: guaiFENesin 600 MG TABLET PO SCH ×2 (08:43→20:27)
[2023-06-13] MEDS: FAMOTIDINE 20 MG/2 ML VIAL IVP SCH ×2 (08:43→20:27)
[2023-06-13] MEDS: SODIUM CHLORIDE FLUSH 0.9% 10 ML SYRINGE IVP SCH ×3 (08:44→22:47)
[2023-06-13] MEDS: VANCOMYCIN INJ 1 GM, VANCOMYCIN INJ 250 MG in SODIUM CHLORIDE 0.9% 250 ML IV SCH ×2 (09:47→22:23)
[2023-06-13] MEDS ORDERED: LORazepam 0.5 MG TABLET PO PRN (11:02)
[2023-06-13] MEDS: OXYMETAZOLINE HCL 100 SPRAYS BOTTLE NAS PRN (12:59)
[2023-06-13] MEDS ORDERED: MAGNESIUM OXIDE 400 MG TABLET PO ONE (17:43)
--- NOTE | 2023-06-13 18:08 | PROVIDER PROGRESS NOTE ---
Subjective - Subjective Pt reports feeling: Improved (Is awake, taking a break off BIPAP, has on HioFlow n.c. is speaking) Objective - Vital Signs/Intake & Output Reviewed Vital Signs: Yes Vital Signs: Vital Signs Pulse Pulse Resp BP Pulse Ox O2 Flow Rate 06/13/23 17:00 95 19 97/51 L 95 06/13/23 16:00 93 27 H 104/64 89 L 06/13/23 15:59 106 H 06/13/23 15:00 98 19 99/54 L 94 8 Intake & Output: Intake & Output 06/10/23 06/11/23 06/12/23 06/13/23 23:59 23:59 23:59 23:59 Intake Total 1040 4709.401 3589.563 1190 Output Total 850 1619 2271 2017 Balance 190 -30.312 -38.437 -827 - Objective General Appearance: positive: No acute distress (at rest on suppl O2) Eyes Bilateral: positive: Normal inspection, EOMI, No lid inflammation ENT: positive: No signs of dehydration Neck: positive: Nml inspection, No JVD Respiratory: positive: Breath sounds nml Cardiovascular: positive: No murmur, Irregularly irregular Abdomen: positive: Non-tender, Nml bowel sounds, Other (Obese) Skin: positive: Warm, Dry Extremities: positive: Non-tender, Other (3+ edema to thighs) Neurologic/Psychiatric: positive: Other (Slow speech and movements) - Lab Results Fish Bones: 06/13/23 05:25 06/13/23 05:25 Other Labs: Lab Results x24hrs 06/13/23 06/13/23 06/13/23 Range/Units 17:29 17:15 12:14 WBC (4.8-10.8) x10^3/uL RBC (4.20-5.40) 10^6/uL Hgb (12.0-16.0) g/dL Hct (37.0-47.0) % MCV (81.0-99.0) fL MCH (27.0-31.0) pg MCHC (32.0-36.0) g/dL RDW (12.0-15.0) % Plt Count (130-450) 10^3/uL MPV (7.9-10.8) fL Neut # (Auto) (1.5-6.6) 10^3/uL Lymph # (Auto) (1.5-3.5) 10^3/uL Weld # (Auto) (0.0-1.0) 10^3/uL Eos # (Auto) (0.0-0.7) 10^3/uL Baso # (Auto) (0.0-0.1) 10^3/uL Absolute Nucleated RBC x10^3/uL Nucleated RBC % /100WBC Manual Slide Review WBC Morphology (NORMAL) Platelet Estimate (NORMAL) Platelet Morphology (NORMAL) RBC Morph Micro Appear (NORMAL) VBG pH (7.31-7.41) Ionized Calcium (1.15-1.33) mmol/L Sodium (135-145) mmol/L Potassium (3.5-4.5) mmol/L Chloride (101-111) mmol/L Carbon Dioxide (21-32) mmol/L Anion Gap (6-13) BUN (6-20) mg/dL Creatinine (0.6-1.3) mg/dL Estimated GFR (MDRD) (>89) Glucose (74-104) mg/dL POC Whole Bld Glucose 218 H 212 H (70 - 100) mg/dL Calcium (8.5-10.3) mg/dL Phosphorus (2.5-5.0) mg/dL Magnesium 1.6 L (1.7-2.3) mg/dL Last Dose Date Last Dose Time Vancomycin Trough ug/mL 06/13/23 06/13/23 06/13/23 Range/Units 07:37 05:25 05:25 WBC (4.8-10.8) x10^3/uL RBC (4.20-5.40) 10^6/uL Hgb (12.0-16.0) g/dL Hct (37.0-47.0) % MCV (81.0-99.0) fL MCH (27.0-31.0) pg MCHC (32.0-36.0) g/dL RDW (12.0-15.0) % Plt Count (130-450) 10^3/uL MPV (7.9-10.8) fL Neut # (Auto) (1.5-6.6) 10^3/uL Lymph # (Auto) (1.5-3.5) 10^3/uL Weld # (Auto) (0.0-1.0) 10^3/uL Eos # (Auto) (0.0-0.7) 10^3/uL Baso # (Auto) (0.0-0.1) 10^3/uL Absolute Nucleated RBC x10^3/uL Nucleated RBC % /100WBC Manual Slide Review WBC Morphology (NORMAL) Platelet Estimate (NORMAL) Platelet Morphology (NORMAL) RBC Morph Micro Appear (NORMAL) VBG pH (7.31-7.41) Ionized Calcium (1.15-1.33) mmol/L Sodium 142 (135-145) mmol/L Potassium 4.2 (3.5-4.5) mmol/L Chloride 98 L (101-111) mmol/L Carbon Dioxide 42 H* (21-32) mmol/L Anion Gap 2.0 L (6-13) BUN 10 (6-20) mg/dL Creatinine 0.5 L (0.6-1.3) mg/dL Estimated GFR (MDRD) 129 (>89) Glucose 167 H (74-104) mg/dL POC Whole Bld Glucose 146 H (70 - 100) mg/dL Calcium 9.2 (8.5-10.3) mg/dL Phosphorus (2.5-5.0) mg/dL Magnesium (1.7-2.3) mg/dL Last Dose Date UNKNOWN Last Dose Time UNKNOWN Vancomycin Trough 21.6 ug/mL 06/13/23 06/13/23 06/13/23 Range/Units 05:25 05:25 05:25 WBC 5.3 (4.8-10.8) x10^3/uL RBC 4.20 (4.20-5.40) 10^6/uL Hgb 10.4 L (12.0-16.0) g/dL Hct 38.2 (37.0-47.0) % MCV 91.0 (81.0-99.0) fL MCH 24.8 L (27.0-31.0) pg MCHC 27.2 L (32.0-36.0) g/dL RDW 15.2 H (12.0-15.0) % Plt Count 153 (130-450) 10^3/uL MPV 10.9 H (7.9-10.8) fL Neut # (Auto) 2.6 (1.5-6.6) 10^3/uL Lymph # (Auto) 1.9 (1.5-3.5) 10^3/uL Weld # (Auto) 0.6 (0.0-1.0) 10^3/uL Eos # (Auto) 0.1 (0.0-0.7) 10^3/uL Baso # (Auto) 0.0 (0.0-0.1) 10^3/uL Absolute Nucleated RBC 0.00 x10^3/uL Nucleated RBC % 0.0 /100WBC Manual Slide Review Indicated WBC Morphology NORMAL APPEARANCE (NORMAL) Platelet Estimate NORMAL (130-450,000) (NORMAL) Platelet Morphology NORMAL APPEARANCE (NORMAL) RBC Morph Micro Appear 1+ HYPOCHROMASIA (NORMAL) VBG pH 7.360 (7.31-7.41) Ionized Calcium 1.18 (1.15-1.33) mmol/L Sodium (135-145) mmol/L Potassium 4.2 (3.5-4.5) mmol/L Chloride (101-111) mmol/L Carbon Dioxide (21-32) mmol/L Anion Gap (6-13) BUN (6-20) mg/dL Creatinine (0.6-1.3) mg/dL Estimated GFR (MDRD) (>89) Glucose (74-104) mg/dL POC Whole Bld Glucose (70 - 100) mg/dL Calcium (8.5-10.3) mg/dL Phosphorus 2.9 (2.5-5.0) mg/dL Magnesium 1.8 (1.7-2.3) mg/dL Last Dose Date Last Dose Time Vancomycin Trough ug/mL 06/12/23 06/12/23 06/12/23 Range/Units 21:20 20:58 17:25 WBC (4.8-10.8) x10^3/uL RBC (4.20-5.40) 10^6/uL Hgb (12.0-16.0) g/dL Hct (37.0-47.0) % MCV (81.0-99.0) fL MCH (27.0-31.0) pg MCHC (32.0-36.0) g/dL RDW (12.0-15.0) % Plt Count (130-450) 10^3/uL MPV (7.9-10.8) fL Neut # (Auto) (1.5-6.6) 10^3/uL Lymph # (Auto) (1.5-3.5) 10^3/uL Weld # (Auto) (0.0-1.0) 10^3/uL Eos # (Auto) (0.0-0.7) 10^3/uL Baso # (Auto) (0.0-0.1) 10^3/uL Absolute Nucleated RBC x10^3/uL Nucleated RBC % /100WBC Manual Slide Review WBC Morphology (NORMAL) Platelet Estimate (NORMAL) Platelet Morphology (NORMAL) RBC Morph Micro Appear (NORMAL) VBG pH (7.31-7.41) Ionized Calcium (1.15-1.33) mmol/L Sodium (135-145) mmol/L Potassium 4.2 (3.5-4.5) mmol/L Chloride (101-111) mmol/L Carbon Dioxide (21-32) mmol/L Anion Gap (6-13) BUN (6-20) mg/dL Creatinine (0.6-1.3) mg/dL Estimated GFR (MDRD) (>89) Glucose (74-104) mg/dL POC Whole Bld Glucose 253 H (70 - 100) mg/dL Calcium (8.5-10.3) mg/dL Phosphorus (2.5-5.0) mg/dL Magnesium (1.7-2.3) mg/dL Last Dose Date Last Dose Time Vancomycin Trough 21.2 ug/mL 06/12/23 Range/Units 05:25 WBC (4.8-10.8) x10^3/uL RBC (4.20-5.40) 10^6/uL Hgb (12.0-16.0) g/dL Hct (37.0-47.0) % MCV (81.0-99.0) fL MCH (27.0-31.0) pg MCHC (32.0-36.0) g/dL RDW (12.0-15.0) % Plt Count (130-450) 10^3/uL MPV (7.9-10.8) fL Neut # (Auto) (1.5-6.6) 10^3/uL Lymph # (Auto) (1.5-3.5) 10^3/uL Weld # (Auto) (0.0-1.0) 10^3/uL Eos # (Auto) (0.0-0.7) 10^3/uL Baso # (Auto) (0.0-0.1) 10^3/uL Absolute Nucleated RBC x10^3/uL Nucleated RBC % /100WBC Manual Slide Review WBC Morphology (NORMAL) Platelet Estimate (NORMAL) Platelet Morphology (NORMAL) RBC Morph Micro Appear (NORMAL) VBG pH (7.31-7.41) Ionized Calcium (1.15-1.33) mmol/L Sodium (135-145) mmol/L Potassium (3.5-4.5) mmol/L Chloride (101-111) mmol/L Carbon Dioxide (21-32) mmol/L Anion Gap (6-13) BUN (6-20) mg/dL Creatinine (0.6-1.3) mg/dL Estimated GFR (MDRD) (>89) Glucose (74-104) mg/dL POC Whole Bld Glucose (70 - 100) mg/dL Calcium (8.5-10.3) mg/dL Phosphorus (2.5-5.0) mg/dL Magnesium (1.7-2.3) mg/dL Last Dose Date Not Reportable Last Dose Time Not Reportable Vancomycin Trough ug/mL Assessment/Plan - Problem List (1) Acute respiratory failure with hypoxia and hypercarbia Impression: Patient had a low O2 sat on the scene measured by EMS and was 85% on room air in the ER. The etiology was suspected to be her pulmonary edema. Three days into her admission, I learned she has she sleep apnea and was prescribed a CPAP which she does not use. 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 Then she had resp failure with resp acidosis and CO2 narcosis 2 days ago, and now needs BIPAP, is in the ICU Plan: Cont BIPAP and supplemental O2, titrate down to room air when possible. Target O2 saturation will be 92% Avoid excessive FIO2 to prevent suppression of her hypoxic drive to ventilate She may need a BIPAP machine or Trilogy machine for home after discharge (2) Pulmonary edema Conclusion/Plan: The patient did notice DE LEÓN and orthopnea and leg edema, but did not seek medical attention. On exam she has minimal improvement of her anasarca of the legs, they are not as taught, but still has pitting edema to thighs. Her Echocardiogram was done 06/10 and showed preserved LVEF and R heart enlargement plus engorged IVC. Therefore she has PFpEF. Plan: Cont twice daily IV Lasix Follow I's and O's, cont Alegre monitoring, monitor daily weights Resume low-salt diet when she eats, taking breaks off BIPAP Follow her electrolytes and magnesium daily, replace if low Monitor on telemetry for dysrhythmias (3) Myotonic dystrophy Conclusion/Plan: As per Hx. She had evidence of weakness even in her speech, when I first met her. 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 She claimed she can still drive a car without any extra equipment. Plan: Cont to hold her statin in case it is adding to muscle weakness (4) New onset a-fib Conclusion/Plan: This was seen at admission & patient denied feeling palpitations . She said she has never been told she has atrial fib. Her EKG showed atrial fib but the heart rate was not extremely rapid. VS were reviewed. Her HR is running 90-100 on new B-corey. Troponins have ruled out ACS as the cause Her TSH ruled out hyperthyroidism as the cause Her Echo showed a preserved ejection fraction. She has diastolic heart failure however. She has a CHADSsVasc2 score of 3 (DM, CHF, Female), therefore a DOAC is considered beneficial per guidelines. 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 Plan: Cont to monitor on telemetry Cont Coreg 6.25 bid for better rate control I need to discuss the risks and benefits of being on an anticoagulant with pt and also with her mother, since I can see that the pt has some cognitive impairment (unable to give detailed answers, is somewhat sleepy, which could be from her MD). (5) Left bundle branch block Conclusion/Plan: The finding of LBBB could be due to Myotonic Dystrophy, which affects the conduction system of the heart. Plan: As in #2 (6) DM type 2 (diabetes mellitus, type 2) Conclusion/Plan: As per Hx Her A1c came back at 9.2, indicating poor glu control Plan: Cont a diabetic diet, fingerstick glucose checks, sliding scale insulin, hypoglycemia protocol I have re-started her usual diabetic meds and management (7) Acute respiratory acidosis Impression: RESOLVED She became more somnolent. ABG showed extreme acidosis with pH 7.19 with CO2 retention, PCO2 was 147. She was moved into the ICU several days ago and BIPAP was started. She is on BiPAP at night and for naps. Her settings are being adjusted Her repeat ABGs improved by the 2nd day on BIPAP Plan: Remain in ICU on BIPAP at night and for naps. (8) CO2 narcosis Impression: RESOLVED Her ABGs showed severe CO2 retention, the highest PCO2 was 147. Her best was PCO2 of 99, when moved to ICU and BIPAP started By the 2nd day her obtundation resolved Plan: BIPAP overnight each night and when needed daytime Encourage deep breaths when awake and IS when awake She may need a BIPAP machine or Trilogy machine for home after discharge
--- NOTE | 2023-06-13 19:58 | PROVIDER PROGRESS NOTE ---
Assessment/Plan - Problem List (1) Acute respiratory failure with hypoxia and hypercarbia Assessment/Plan: Patient had a low O2 sat on the scene measured by EMS and was 85% on room air in the ER. The etiology was suspected to be her pulmonary edema. Three days into her admission, I learned she has she sleep apnea and was prescribed a CPAP which she does not use. 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 Then she had resp failure with resp acidosis and CO2 narcosis yesterday, and now needs BIPAP, is in the ICU Plan: Cont BIPAP and supplemental O2, titrate down to room air when possible. Target O2 saturation will be 92% Avoid excessive FIO2 to prevent suppression of her hypoxic drive to ventilate RT has suggested that she may need a BIPAP machine or Trilogy machine for home after discharge (2) Pulmonary edema Conclusion/Plan: The patient did notice DE LEÓN and orthopnea and leg edema, but did not seek medical attention. On exam she has minimal improvement of her anasarca of the legs, they are not as taught, but still has pitting edema to thighs. Her Echocardiogram was done 06/10 and showed preserved LVEF and R heart enlargement plus engorged IVC. Therefore she has PFpEF. Plan: Cont twice daily IV Lasix Follow I's and O's, cont Alegre monitoring, monitor daily weights Resume low-salt diet when she eats, taking breaks off BIPAP Follow her electrolytes and magnesium daily, replace if low Monitor on telemetry for dysrhythmias (3) Myotonic dystrophy Conclusion/Plan: As per Hx. She had evidence of weakness even in her speech, when I first met her. 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 She claimed she can still drive a car without any extra equipment. Plan: Cont to hold her statin in case it is adding to muscle weakness (4) New onset a-fib Conclusion/Plan: This was seen at admission & patient denied feeling palpitations . She said she has never been told she has atrial fib. Her EKG showed atrial fib but the heart rate was not extremely rapid. VS were reviewed. Her HR is running 90-100 on new B-corey. Troponins have ruled out ACS as the cause Her TSH ruled out hyperthyroidism as the cause Her Echo showed a preserved ejection fraction. She has diastolic heart failure however. She has a CHADSsVasc2 score of 3 (DM, CHF, Female), therefore a DOAC is considered beneficial per guidelines. 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 Plan: Cont to monitor on telemetry Cont Coreg 6.25 bid for better rate control I need to discuss the risks and benefits of being on an anticoagulant with pt and also with her mother, since I can see that the pt has some cognitive impairment (5) Left bundle branch block Conclusion/Plan: The finding of LBBB could be due to Myotonic Dystrophy, which affects the conduction system of the heart. Plan: Remain on telem (6) DM type 2 (diabetes mellitus, type 2) Conclusion/Plan: As per Hx Her A1c came back at 9.2, indicating poor glu control Plan: Resume a diabetic diet, fingerstick glucose checks, sliding scale insulin, hypoglycemia protocol I will re-start her usual diabetic meds and management (7) Acute respiratory acidosis Impression: RESOLVED When she became more somnolent, her ABG showed extreme acidosis with pH 7.19 with CO2 retention, PCO2 was 147. She was moved into the ICU and BIPAP was started. She is on BiPAP at night and for naps. Her settings are being adjusted Her repeat ABGs improved on BIPAP Plan: Remain in ICU on BIPAP at night and for naps. (8) CO2 narcosis Impression: RESOLVED Her ABGs showed severe CO2 retention, the highest PCO2 was 147. Her best was PCO2 of 99, when moved to ICU and BIPAP started yesterday Today her obtundation resolved Plan: BIPAP overnight each night and when needed daytime Encourage deep breaths when awake and IS when awake She may need a BIPAP machine or Trilogy machine for home after discharge - Current Meds Current Meds: Current Medications Generic Name Dose Route Start Last Admin Trade Name Freq PRN Reason Stop Dose Admin Acetaminophen 650 mg 06/09/23 13:50 06/12/23 19:35 Acetaminophen 325 Mg Tablet PO 650 mg Q4HR PRN Administration Pain 1 to 4, or Fever Enoxaparin Sodium 40 mg 06/10/23 09:00 06/13/23 08:43 Enoxaparin 40 Mg/0.4 Ml Syringe SUBQ 40 mg DAILY PEREZ Administration Famotidine 20 mg 06/11/23 11:25 06/13/23 08:43 Famotidine 20 Mg/2 Ml Vial IVP 20 mg BID PEREZ Administration Furosemide 20 mg 06/10/23 06:00 06/13/23 14:21 Furosemide 20 Mg/2 Ml Vial IVP 20 mg BIDDIURETIC PEREZ Administration Gabapentin 300 mg 06/10/23 09:00 06/13/23 08:43 Gabapentin 300 Mg Capsule PO 300 mg DAILY PEREZ Administration Guaifenesin 600 mg 06/12/23 14:00 06/13/23 08:43 Guaifenesin 600 Mg Tablet PO 600 mg BID PEREZ Administration Cefepime HCl 1 gm/ Sodium 100 mls @ 200 mls/hr 06/11/23 22:00 06/13/23 14:50 Chloride IV Infused Q8H PEREZ Infusion Acetaminophen 1,000 mg in 100 mls @ 400 mls/hr 06/11/23 23:25 06/13/23 05:13 Acetaminophen IV Infused Q6HR PRN Infusion FEVER > 100.5 F Vancomycin HCl 1 gm/ 250 mls @ 167 mls/hr 06/13/23 10:00 06/13/23 11:30 Vancomycin HCl 250 mg/ Sodium IV Infused Chloride Q12H PEREZ Infusion Insulin Glargine-yfgn 20 unit 06/11/23 21:00 06/13/23 08:40 Insulin Glargine-Yfgn 300 Unit/3 Ml Pen SUBQ 20 unit BID PEREZ Administration Insulin Human Lispro 1 - 9 unit 06/10/23 17:21 06/13/23 17:50 Insulin Lispro 300 Unit/3 Ml Pen SUBQ 3 unit 0800,1200,1700,2100 PEREZ Administration Protocol Ondansetron HCl 4 mg 06/09/23 13:50 06/10/23 18:08 Ondansetron 4 Mg/2 Ml Vial IVP 4 mg Q6HR PRN Administration Nausea / Vomiting Oxymetazoline HCl 2 sprays 06/13/23 11:02 06/13/23 12:59 Oxymetazoline Hcl 100 Sprays Bottle ANJEL 2 spray BID PRN Administration Nasal Congestion Sodium Chloride 10 ml 06/09/23 17:00 06/13/23 17:53 Sodium Chloride Flush 0.9% 10 Ml Syringe IVP 10 ml 0100,0900,1700 [facility] Administration - Lab Result Fish Bone Diagrams: 06/13/23 05:25 06/13/23 05:25 - Additional Planning My Orders: My Active Orders 06/13/23 10:00 Vancomycin Inj [Vancomycin] 1 gm Vancomycin Inj [Vancomycin Hcl] 250 mg Sodium Chloride 0.9% [Normal Saline 0.9%] 250 ml IV Q12H 06/13/23 11:02 LORazepam [Ativan] 0.5 mg PO QPM PRN Oxymetazoline HCl [Afrin] 2 sprays ANJEL BID PRN 06/13/23 11:03 Miscellaenous Nursing Order [RC] ONCE 06/13/23 22:30 MAGNESIUM [CHEM] Timed 06/14/23 05:00 BMP - BASIC METABOLIC PANEL [CHEM] DAILYLAB CBC - COMP BLD CT W/AUTO DIFF [HEME] DAILYLAB CBC - COMP BLD CT W/AUTO DIFF [HEME] DAILYLAB Subjective - Subjective Patient Reports: Feeling Better (Is awake, able to feed herself, is somnolent, speaks in short sentences) Objective Vital Signs: Vital Signs - 24 hr 06/12/23 06/12/23 06/12/23 20:00 20:05 20:46 Temperature 37.9 C Heart Rate Heart Rate [ 97 Brachial] Respiratory 18 Rate Blood Pressure 94/64 [Left Brachial artery] O2 Saturation 95 If not protocol 8 8 8 : Oxygen Flow, liters/minute 06/12/23 06/12/23 06/12/23 21:00 22:00 22:12 Temperature 37.1 C Heart Rate 90 Heart Rate [ 103 H 92 Brachial] Respiratory 22 21 Rate Blood Pressure 127/73 118/71 [Left Brachial artery] O2 Saturation 96 93 If not protocol 8 8 : Oxygen Flow, liters/minute 06/12/23 06/13/23 06/13/23 23:00 00:00 00:42 Temperature 36.5 C Heart Rate 82 Heart Rate [ 92 89 Brachial] Respiratory 20 17 Rate Blood Pressure 104/53 L 88/62 L [Left Brachial artery] O2 Saturation 94 94 If not protocol 8 : Oxygen Flow, liters/minute 06/13/23 06/13/23 06/13/23 01:00 02:00 02:24 Temperature 36.4 C L Heart Rate 83 Heart Rate [ 79 79 Brachial] Respiratory 18 17 Rate Blood Pressure 101/59 L 98/58 L [Left Brachial artery] O2 Saturation 94 96 If not protocol 8 : Oxygen Flow, liters/minute 06/13/23 06/13/23 06/13/23 03:00 04:00 04:54 Temperature Heart Rate Heart Rate [ 87 97 Brachial] Respiratory 24 14 Rate Blood Pressure 103/74 100/69 [Left Brachial artery] O2 Saturation 96 98 If not protocol 8 : Oxygen Flow, liters/minute 06/13/23 06/13/23 06/13/23 05:00 06:00 07:00 Temperature 36.6 C 36.6 C Heart Rate Heart Rate [ 91 92 100 Brachial] Respiratory 19 15 19 Rate Blood Pressure 93/66 119/93 H 94/67 [Left Brachial artery] O2 Saturation 95 97 93 If not protocol 8 8 8 : Oxygen Flow, liters/minute 06/13/23 06/13/23 06/13/23 08:00 09:00 10:00 Temperature Heart Rate Heart Rate [ 92 95 101 H Brachial] Respiratory 21 20 23 Rate Blood Pressure 102/63 96/54 L 100/65 [Left Brachial artery] O2 Saturation 95 18 L 91 L If not protocol 8 8 8 : Oxygen Flow, liters/minute 06/13/23 06/13/23 06/13/23 11:00 12:00 13:00 Temperature Heart Rate Heart Rate [ 69 91 96 Brachial] Respiratory 23 20 22 Rate Blood Pressure 113/65 105/63 116/65 [Left Brachial artery] O2 Saturation 95 95 95 If not protocol 8 8 8 : Oxygen Flow, liters/minute 06/13/23 06/13/23 06/13/23 14:00 15:00 15:59 Temperature Heart Rate 106 H Heart Rate [ 92 98 Brachial] Respiratory 21 19 Rate Blood Pressure 104/66 99/54 L [Left Brachial artery] O2 Saturation 95 94 If not protocol 8 8 : Oxygen Flow, liters/minute 06/13/23 06/13/23 06/13/23 16:00 17:00 18:00 Temperature Heart Rate Heart Rate [ 93 95 93 Brachial] Respiratory 27 H 19 21 Rate Blood Pressure 104/64 97/51 L 107/62 [Left Brachial artery] O2 Saturation 89 L 95 97 If not protocol 8 : Oxygen Flow, liters/minute 06/13/23 06/13/23 18:15 19:00 Temperature Heart Rate 97 Heart Rate [ 95 Brachial] Respiratory 18 Rate Blood Pressure 97/64 [Left Brachial artery] O2 Saturation 97 If not protocol 8 : Oxygen Flow, liters/minute Oxygen O2 Source Oxymask I&O (Last 24 Hrs): Intake and Output Totals x24h 06/11/23 06/12/23 06/13/23 23:59 23:59 23:59 Intake Total 0561.468 8046.563 1310 Output Total 1619 2271 2287 Balance -30.312 -38.437 -977 General: Alert, Other (Lethargic) HEENT: EOMI, Mucous membr. moist/pink, Other (Poor dentition) Neck: Supple Neuro: Alert, Other (Lethargic) Cardiovascular: No murmurs, Other (Irreg) Respiratory: Breath sounds nml (on BIPAP) Abdomen: Soft, Other (Obese) Extremities: No clubbing, Other (4+ edema to upper thighs) - Results Results: Laboratory Results WBC 5.3 x10^3/uL (4.8-10.8) 06/13/23 05:25 RBC 4.20 10^6/uL (4.20-5.40) 06/13/23 05:25 Hgb 10.4 g/dL (12.0-16.0) L 06/13/23 05:25 Hct 38.2 % (37.0-47.0) 06/13/23 05:25 MCV 91.0 fL (81.0-99.0) 06/13/23 05:25 MCH 24.8 pg (27.0-31.0) L 06/13/23 05:25 MCHC 27.2 g/dL (32.0-36.0) L 06/13/23 05:25 RDW 15.2 % (12.0-15.0) H 06/13/23 05:25 Plt Count 153 10^3/uL (130-450) 06/13/23 05:25 MPV 10.9 fL (7.9-10.8) H 06/13/23 05:25 Neut # (Auto) 2.6 10^3/uL (1.5-6.6) 06/13/23 05:25 Lymph # (Auto) 1.9 10^3/uL (1.5-3.5) 06/13/23 05:25 Dunn # (Auto) 0.6 10^3/uL (0.0-1.0) 06/13/23 05:25 Eos # (Auto) 0.1 10^3/uL (0.0-0.7) 06/13/23 05:25 Baso # (Auto) 0.0 10^3/uL (0.0-0.1) 06/13/23 05:25 Absolute Nucleated RBC 0.00 x10^3/uL 06/13/23 05:25 Nucleated RBC % 0.0 /100WBC 06/13/23 05:25 Manual Slide Review Indicated 06/13/23 05:25 WBC Morphology NORMAL APPEARANCE (NORMAL) 06/13/23 05:25 Platelet Estimate NORMAL (130-450,000) (NORMAL) 06/13/23 05:25 Platelet Morphology NORMAL APPEARANCE (NORMAL) 06/13/23 05:25 RBC Morph Micro Appear 1+ ANISOCYTOSIS (NORMAL) 1+ STOMATOCYTES (NORMAL) 1+ HYPOCHROMASIA (NORMAL) 06/13/23 05:25 RBC Morph Micro Appear 1+ ANISOCYTOSIS (NORMAL) 1+ STOMATOCYTES (NORMAL) 1+ HYPOCHROMASIA (NORMAL) 06/13/23 05:25 RBC Morph Micro Appear 1+ ANISOCYTOSIS (NORMAL) 1+ STOMATOCYTES (NORMAL) 1+ HYPOCHROMASIA (NORMAL) 06/13/23 05:25 Bld Gas Analysis Time 0806/12/23 08:24 Sample Site RIGHT BRACHIAL 06/12/23 08:24 ABG pH 7.41 (7.35-7.45) 06/12/23 08:24 ABG pCO2 65 mmHg (34-45) H* 06/12/23 08:24 ABG pO2 71 mmHg (80-100) L 06/12/23 08:24 ABG HCO3 40.3 mmol/L (22.0-26.0) H 06/12/23 08:24 ABG Total CO2 42.3 MMOL/L (21.0-29.0) H* 06/12/23 08:24 ABG O2 Saturation 94 % (94-98) 06/12/23 08:24 ABG Base Excess 13.1 mmol/L (-2.0-3.0) H 06/12/23 08:24 Davie Test NOT APPLICABLE 06/12/23 08:24 VBG pH 7.360 (7.31-7.41) 06/13/23 05:25 Ionized Calcium 1.18 mmol/L (1.15-1.33) 06/13/23 05:25 Respiration Rate 20 b/min 06/11/23 13:20 O2 Delivery Device BiPAP 06/12/23 08:24 O2 Liters/Min 12.00 LPM 06/11/23 00:05 FiO2 50.00 06/12/23 08:24 EPAP 5 cmH2O 06/12/23 08:24 IPAP 14 cmH2O 06/12/23 08:24 Sodium 142 mmol/L (135-145) 06/13/23 05:25 Potassium 4.2 mmol/L (3.5-4.5) 06/13/23 05:25 Potassium 4.2 mmol/L (3.5-4.5) 06/13/23 05:25 Chloride 98 mmol/L (101-111) L 06/13/23 05:25 Carbon Dioxide 42 mmol/L (21-32) H* 06/13/23 05:25 Anion Gap 2.0 (6-13) L 06/13/23 05:25 BUN 10 mg/dL (6-20) 06/13/23 05:25 Creatinine 0.5 mg/dL (0.6-1.3) L 06/13/23 05:25 Estimated GFR (MDRD) 129 (>89) 06/13/23 05:25 Glucose 167 mg/dL (74-104) H 06/13/23 05:25 POC Whole Bld Glucose 218 mg/dL (70 - 100) H 06/13/23 17:29 Estimat Average Glucose 226 mg/dL (70-100) H 06/10/23 06:12 Hemoglobin A1c % 9.5 % (4.27-6.07) H 06/10/23 06:12 Calcium 9.2 mg/dL (8.5-10.3) 06/13/23 05:25 Phosphorus 2.9 mg/dL (2.5-5.0) 06/13/23 05:25 Magnesium 1.6 mg/dL (1.7-2.3) L 06/13/23 17:15 Total Bilirubin 0.9 mg/dL (0.2-1.0) 06/09/23 09:53 AST 13 IU/L (10-42) 06/09/23 09:53 ALT 10 IU/L (10-60) 06/09/23 09:53 Alkaline Phosphatase 76 IU/L (42-121) 06/09/23 09:53 Troponin I High Sens 36.4 ng/L (2.3-14.8) H* 06/11/23 11:31 B-Natriuretic Peptide 99 pg/mL (5-100) 06/09/23 09:53 Total Protein 6.4 g/dL (6.4-8.9) 06/09/23 09:53 Albumin 3.9 g/dL (3.2-5.5) 06/09/23 09:53 Globulin 2.5 g/dL (2.1-4.2) 06/09/23 09:53 Albumin/Globulin Ratio 1.6 (1.0-2.2) 06/09/23 09:53 TSH 1.74 uIU/mL (0.34-5.60) 06/10/23 06:12 Urine Color DARK YELLOW 06/09/23 12:25 Urine Clarity CLOUDY (CLEAR) 06/09/23 12:25 Urine pH 6.0 PH (5.0-7.5) 06/09/23 12:25 Ur Specific Faith 1.025 (1.002-1.030) 06/09/23 12:25 Urine Protein TRACE mg/dL (NEGATIVE) 06/09/23 12:25 Urine Glucose (UA) 250 mg/dL (NEGATIVE) H 06/09/23 12:25 Urine Ketones NEGATIVE mg/dL (NEGATIVE) 06/09/23 12:25 Urine Occult Blood LARGE (NEGATIVE) H 06/09/23 12:25 Urine Nitrite NEGATIVE (NEGATIVE) 06/09/23 12:25 Urine Bilirubin NEGATIVE (NEGATIVE) 06/09/23 12:25 Urine Urobilinogen 0.2 (NORMAL) E.U./dL (NORMAL) 06/09/23 12:25 Ur Leukocyte Esterase NEGATIVE (NEGATIVE) 06/09/23 12:25 Urine RBC TNTC /HPF (0-5) H 06/09/23 12:25 Urine WBC 4-5 /HPF (0-5) 06/09/23 12:25 Ur Squamous Epith Cells MOD Squamous (<= Few) H 06/09/23 12:25 Urine Crystals >50 Calcium Oxalate /LPF 06/09/23 12:25 Urine Bacteria Moderate /HPF (None Seen) H 06/09/23 12:25 Urine Mucus Few Strands 06/09/23 12:25 Ur Microscopic Review INDICATED 06/09/23 12:25 Urine Culture Comments NOT INDICATED 06/09/23 12:25 Nasal Adenovirus (PCR) NOT DETECTED 06/09/23 09:50 Nasal B. parapertussis DNA (PCR) NOT DETECTED 06/09/23 09:50 Nasal Coronavir 229E PCR NOT DETECTED 06/09/23 09:50 Nasal Coronavir HKU1 PCR NOT DETECTED 06/09/23 09:50 Nasal Coronavir NL63 PCR NOT DETECTED 06/09/23 09:50 Nasal Coronavir OC43 PCR NOT DETECTED 06/09/23 09:50 Nasal Enterovir/Rhinovir PCR NOT DETECTED 06/09/23 09:50 Nasal Influenza B PCR NOT DETECTED 06/09/23 09:50 Nasal Influenza A PCR NOT DETECTED 06/09/23 09:50 Nasal Parainfluen 1 PCR NOT DETECTED 06/09/23 09:50 Nasal Parainfluen 2 PCR NOT DETECTED 06/09/23 09:50 Nasal Parainfluen 3 PCR NOT DETECTED 06/09/23 09:50 Nasal Parainfluen 4 PCR NOT DETECTED 06/09/23 09:50 Nasal RSV (PCR) NOT DETECTED 06/09/23 09:50 Nasal Screen MRSA (PCR) NEGATIVE (NEGATIVE) 06/11/23 05:00 Nasal B.pertussis DNA PCR NOT DETECTED 06/09/23 09:50 Nasal C.pneumoniae (PCR) NOT DETECTED 06/09/23 09:50 Anjel Human Metapneumo PCR NOT DETECTED 06/09/23 09:50 Nasal M.pneumoniae (PCR) NOT DETECTED 06/09/23 09:50 Nasal SARS-CoV-2 (PCR) NOT DETECTED 06/09/23 09:50 Last Dose Date UNKNOWN 06/13/23 05:25 Last Dose Time UNKNOWN 06/13/23 05:25 Vancomycin Peak 43.7 ug/mL (20.0-40.0) H 06/11/23 21:00 Vancomycin Trough 21.6 ug/mL 06/13/23 05:25
[2023-06-13] MEDS: SODIUM CHLORIDE FLUSH 0.9% 10 ML SYRINGE IVP PRN ×2 (20:27→22:47)
[2023-06-13] MEDS ORDERED: MAGNESIUM SULFATE 2 GRAM 2 GM/50 ML BAG IV ONE (23:27)
[2023-06-14] MEDS ORDERED: LORazepam 2 MG/ML VIAL IVP PRN (02:36)
--- NOTE | 2023-06-14 02:40 | PROVIDER PROGRESS NOTE ---
Customer Account Coordinator Note - Customer Account Coordinator Note Customer Account Coordinator Note: Called by RN stating "Pt on Bipap; is restless, agitated and taking Bipap off. Can you please order something to ease her restlessness/agitation? Thank you." Ativan 0.5 mg ivp q 6 hrs prn anxiety ordered, have asked RM to make sure to update the primary MD and get her input for senior care.
[2023-06-14] MEDS: SODIUM CHLORIDE FLUSH 0.9% 10 ML SYRINGE IVP PRN ×4 (03:12→22:08)
[2023-06-14 05:17] LABS: BASOPHILS % (AUTO) 0.7 %; EOSINOPHILS # (AUTO) 0.2 10^3/uL (0.0-0.7); EOSINOPHILS % (AUTO) 2.9 %; HCT - HEMATOCRIT 38.2 % (37.0-47.0); HGB - HEMOGLOBIN 10.4 g/dL (12.0-16.0); LYMPHOCYTES % (AUTO) 35.1 %; MEAN CORPUSCULAR HEMOGLOBIN 24.8 pg (27.0-31.0); MEAN CORPUSCULAR HGB CONC 27.2 g/dL (32.0-36.0); MEAN CORPUSCULAR VOLUME 91.2 fL (81.0-99.0); MEAN PLATELET VOLUME 10.7 fL (7.9-10.8); MONOCYTES # (AUTO) 0.6 10^3/uL (0.0-1.0); MONOCYTES % (AUTO) 9.9 %; NEUTROPHILS # (AUTO) 2.8 10^3/uL (1.5-6.6); NEUTROPHILS % (AUTO) 51.2 %; PLT - PLATELET COUNT 153 10^3/uL (130-450); RED BLOOD COUNT 4.19 10^6/uL (4.20-5.40); WHITE BLOOD COUNT 5.6 x10^3/uL (4.8-10.8)
[2023-06-14 05:31] LABS: CALCIUM, IONIZED 1.22 mmol/L (1.15-1.33); VBG PH 7.366 (7.31-7.41)
[2023-06-14 05:39] LABS: CALCIUM 9.6 mg/dL (8.5-10.3); CREATININE 0.4 mg/dL (0.6-1.3); POTASSIUM 3.8 mmol/L (3.5-4.5)
[2023-06-14] MEDS: FUROSEMIDE 20 MG/2 ML VIAL IVP SCH ×2 (05:46→14:57)
[2023-06-14] MEDS: CEFEPIME 1 GM in SODIUM CHLORIDE 0.9% MINIBAG 100 ML IV SCH ×3 (05:46→22:08)
[2023-06-14 05:53] LABS: MAGNESIUM 2.2 mg/dL (1.7-2.3); PHOSPHORUS 2.7 mg/dL (2.5-5.0)
[2023-06-14] MEDS ORDERED: POTASSIUM CHLORIDE 20 MEQ TABLET PO ONE (08:00)
[2023-06-14] MEDS: INSULIN LISPRO 300 UNIT/3 ML PEN SUBQ SCH ×4 (08:38→20:49)
[2023-06-14] MEDS: guaiFENesin 600 MG TABLET PO SCH ×2 (08:39→20:47)
[2023-06-14] MEDS: FAMOTIDINE 20 MG/2 ML VIAL IVP SCH ×2 (08:39→20:48)
[2023-06-14] MEDS: ENOXAPARIN 40 MG/0.4 ML SYRINGE SUBQ SCH (08:39)
[2023-06-14] MEDS: GABAPENTIN 300 MG CAPSULE PO SCH (08:39)
[2023-06-14] MEDS: OXYMETAZOLINE HCL 100 SPRAYS BOTTLE NAS PRN ×2 (08:40→18:02)
[2023-06-14] MEDS: INSULIN GLARGINE-YFGN 300 UNIT/3 ML PEN SUBQ SCH ×2 (08:46→20:48)
[2023-06-14] MEDS: SODIUM CHLORIDE FLUSH 0.9% 10 ML SYRINGE IVP SCH ×2 (10:39→20:48)
[2023-06-14] MEDS: VANCOMYCIN INJ 1 GM, VANCOMYCIN INJ 250 MG in SODIUM CHLORIDE 0.9% 250 ML IV SCH ×2 (10:39→22:45)
--- NOTE | 2023-06-14 11:34 | XRAY Report ---
PROCEDURE: Chest 1 View X-Ray INDICATIONS: F/U CHF, Has myotonic dystrophy TECHNIQUE: One view of the chest was acquired. COMPARISON: 06/11/2023 FINDINGS: Surgical changes and devices: Right-sided IJ central venous catheter unchanged Heart size enlarged, there is moderate vascular congestion with obscuration left hemidiaphragm and bl unting the left costophrenic angle. Right pleural space is reasonably clear. Right basilar atelectasi s. Normal bone mineralization present. IMPRESSION: Cardiomegaly, moderate vascular congestion and left pleural effusion with atelectasis, similar prior exam Reviewed by: Rayray Barajas MD on 06/14/2023 10:33 AM MARY ANN Approved by: Rayray Barajas MD on 06/14/2023 10:33 AM MARY ANN Station ID: [id number]
[2023-06-14 15:39] LABS: ABG PH 7.39 (7.35-7.45)
[2023-06-14 15:40] LABS: ABG BASE EXCESS 15.5 mmol/L (-2.0-3.0); ABG HCO3 43.7 mmol/L (22.0-26.0); ABG MODE OF VENTILATION SYNCHRONOUS/TIMES; ABG OXYGEN SATURATION 96 % (94-98); ABG PO2 81 mmHg (80-100); ALLEN TEST POSITIVE
[2023-06-14 15:41] LABS: ABG RESPIRATORY RATE 16 b/min
[2023-06-14 15:44] LABS: ABG PCO2 74 mmHg (34-45)
--- NOTE | 2023-06-14 16:45 | PROVIDER PROGRESS NOTE ---
Subjective - Subjective Pt reports feeling: Improved (She was able to be off BiPAP today. She is communicating more with staff. She is up in a chair and wearing high flow nasal cannula. While doing that she is nodding off, lethargic, napping.) Objective - Vital Signs/Intake & Output Vital Signs: Vital Signs Pulse Pulse Resp BP Pulse Ox O2 Flow Rate 06/14/23 16:00 90 20 104/60 100 06/14/23 15:00 97 91 17 100/53 L 96 06/14/23 14:00 88 18 105/61 97 06/14/23 13:23 84 4 06/14/23 13:00 91 15 98/56 L 94 Intake & Output: Intake & Output 06/11/23 06/12/23 06/13/23 06/14/23 23:59 23:59 23:59 23:59 Intake Total 8150.119 3545.563 1410 874.117 Output Total 1619 2271 2587 2982 Balance -30.312 -38.437 -1177 -2107.883 - Objective General Appearance: positive: No acute distress, Lethargic Eyes Bilateral: positive: Normal inspection, EOMI ENT: positive: ENT inspection nml, Other (wearing HiFlo O2 n.c.) Neck: positive: Nml inspection, No JVD Respiratory: positive: No respiratory distress, Breath sounds nml (Poor air mvm) Cardiovascular: positive: Regular rate & rhythm (Distant heart sounds due to obesity) Abdomen: positive: Non-tender, Other (Obese with a pannus) Skin: positive: Warm, Dry Extremities: positive: Non-tender, Other (3+ edema to mid thighs) - Lab Results Fish Bones: 06/15/23 04:52 06/15/23 04:52 Other Labs: Lab Results x24hrs 06/14/23 06/14/23 06/14/23 Range/Units 15:30 12:09 08:08 WBC (4.8-10.8) x10^3/uL RBC (4.20-5.40) 10^6/uL Hgb (12.0-16.0) g/dL Hct (37.0-47.0) % MCV (81.0-99.0) fL MCH (27.0-31.0) pg MCHC (32.0-36.0) g/dL RDW (12.0-15.0) % Plt Count (130-450) 10^3/uL MPV (7.9-10.8) fL Neut # (Auto) (1.5-6.6) 10^3/uL Lymph # (Auto) (1.5-3.5) 10^3/uL [place] # (Auto) (0.0-1.0) 10^3/uL Eos # (Auto) (0.0-0.7) 10^3/uL Baso # (Auto) (0.0-0.1) 10^3/uL Absolute Nucleated RBC x10^3/uL Nucleated RBC % /100WBC Bld Gas Analysis Time 1541 Sample Site RIGHT RADIAL ABG pH 7.39 (7.35-7.45) ABG pCO2 74 H* (34-45) mmHg ABG pO2 81 (80-100) mmHg ABG HCO3 43.7 H (22.0-26.0) mmol/L ABG Total CO2 46.0 H* (21.0-29.0) MMOL/L ABG O2 Saturation 96 (94-98) % ABG Base Excess 15.5 H (-2.0-3.0) mmol/L [place] Test POSITIVE VBG pH (7.31-7.41) Ionized Calcium (1.15-1.33) mmol/L Respiration Rate 16 b/min O2 Delivery Device BiPAP Vent Mode SYNCHRONOUS/TIMES FiO2 50.00 EPAP 6 cmH2O IPAP 14 cmH2O Sodium (135-145) mmol/L Potassium (3.5-4.5) mmol/L Chloride (101-111) mmol/L Carbon Dioxide (21-32) mmol/L Anion Gap (6-13) BUN (6-20) mg/dL Creatinine (0.6-1.3) mg/dL Estimated GFR (MDRD) (>89) Glucose (74-104) mg/dL POC Whole Bld Glucose 160 H 105 H (70 - 100) mg/dL Calcium (8.5-10.3) mg/dL Phosphorus (2.5-5.0) mg/dL Magnesium (1.7-2.3) mg/dL 06/14/23 06/14/23 06/14/23 Range/Units 04:36 04:36 04:36 WBC (4.8-10.8) x10^3/uL RBC (4.20-5.40) 10^6/uL Hgb (12.0-16.0) g/dL Hct (37.0-47.0) % MCV (81.0-99.0) fL MCH (27.0-31.0) pg MCHC (32.0-36.0) g/dL RDW (12.0-15.0) % Plt Count (130-450) 10^3/uL MPV (7.9-10.8) fL Neut # (Auto) (1.5-6.6) 10^3/uL Lymph # (Auto) (1.5-3.5) 10^3/uL [place] # (Auto) (0.0-1.0) 10^3/uL Eos # (Auto) (0.0-0.7) 10^3/uL Baso # (Auto) (0.0-0.1) 10^3/uL Absolute Nucleated RBC x10^3/uL Nucleated RBC % /100WBC Bld Gas Analysis Time Sample Site ABG pH (7.35-7.45) ABG pCO2 (34-45) mmHg ABG pO2 (80-100) mmHg ABG HCO3 (22.0-26.0) mmol/L ABG Total CO2 (21.0-29.0) MMOL/L ABG O2 Saturation (94-98) % ABG Base Excess (-2.0-3.0) mmol/L [place] Test VBG pH 7.366 (7.31-7.41) Ionized Calcium 1.22 (1.15-1.33) mmol/L Respiration Rate b/min O2 Delivery Device Vent Mode FiO2 EPAP cmH2O IPAP cmH2O Sodium 144 (135-145) mmol/L Potassium 3.8 (3.5-4.5) mmol/L Chloride 98 L (101-111) mmol/L Carbon Dioxide 45 H* (21-32) mmol/L Anion Gap 1.0 L (6-13) BUN 8 (6-20) mg/dL Creatinine 0.4 L (0.6-1.3) mg/dL Estimated GFR (MDRD) 167 (>89) Glucose 98 (74-104) mg/dL POC Whole Bld Glucose (70 - 100) mg/dL Calcium 9.6 (8.5-10.3) mg/dL Phosphorus 2.7 (2.5-5.0) mg/dL Magnesium 2.2 (1.7-2.3) mg/dL 06/14/23 06/13/23 06/13/23 Range/Units 04:36 22:30 20:35 WBC 5.6 (4.8-10.8) x10^3/uL RBC 4.19 L (4.20-5.40) 10^6/uL Hgb 10.4 L (12.0-16.0) g/dL Hct 38.2 (37.0-47.0) % MCV 91.2 (81.0-99.0) fL MCH 24.8 L (27.0-31.0) pg MCHC 27.2 L (32.0-36.0) g/dL RDW 15.0 (12.0-15.0) % Plt Count 153 (130-450) 10^3/uL MPV 10.7 (7.9-10.8) fL Neut # (Auto) 2.8 (1.5-6.6) 10^3/uL Lymph # (Auto) 2.0 (1.5-3.5) 10^3/uL [place] # (Auto) 0.6 (0.0-1.0) 10^3/uL Eos # (Auto) 0.2 (0.0-0.7) 10^3/uL Baso # (Auto) 0.0 (0.0-0.1) 10^3/uL Absolute Nucleated RBC 0.00 x10^3/uL Nucleated RBC % 0.0 /100WBC Bld Gas Analysis Time Sample Site ABG pH (7.35-7.45) ABG pCO2 (34-45) mmHg ABG pO2 (80-100) mmHg ABG HCO3 (22.0-26.0) mmol/L ABG Total CO2 (21.0-29.0) MMOL/L ABG O2 Saturation (94-98) % ABG Base Excess (-2.0-3.0) mmol/L [place]ie Test VBG pH (7.31-7.41) Ionized Calcium (1.15-1.33) mmol/L Respiration Rate b/min O2 Delivery Device Vent Mode FiO2 EPAP cmH2O IPAP cmH2O Sodium (135-145) mmol/L Potassium (3.5-4.5) mmol/L Chloride (101-111) mmol/L Carbon Dioxide (21-32) mmol/L Anion Gap (6-13) BUN (6-20) mg/dL Creatinine (0.6-1.3) mg/dL Estimated GFR (MDRD) (>89) Glucose (74-104) mg/dL POC Whole Bld Glucose 232 H (70 - 100) mg/dL Calcium (8.5-10.3) mg/dL Phosphorus (2.5-5.0) mg/dL Magnesium 1.7 (1.7-2.3) mg/dL 06/13/23 06/13/23 Range/Units 17:29 17:15 WBC (4.8-10.8) x10^3/uL RBC (4.20-5.40) 10^6/uL Hgb (12.0-16.0) g/dL Hct (37.0-47.0) % MCV (81.0-99.0) fL MCH (27.0-31.0) pg MCHC (32.0-36.0) g/dL RDW (12.0-15.0) % Plt Count (130-450) 10^3/uL MPV (7.9-10.8) fL Neut # (Auto) (1.5-6.6) 10^3/uL Lymph # (Auto) (1.5-3.5) 10^3/uL [place] # (Auto) (0.0-1.0) 10^3/uL Eos # (Auto) (0.0-0.7) 10^3/uL Baso # (Auto) (0.0-0.1) 10^3/uL Absolute Nucleated RBC x10^3/uL Nucleated RBC % /100WBC Bld Gas Analysis Time Sample Site ABG pH (7.35-7.45) ABG pCO2 (34-45) mmHg ABG pO2 (80-100) mmHg ABG HCO3 (22.0-26.0) mmol/L ABG Total CO2 (21.0-29.0) MMOL/L ABG O2 Saturation (94-98) % ABG Base Excess (-2.0-3.0) mmol/L [place]ie Test VBG pH (7.31-7.41) Ionized Calcium (1.15-1.33) mmol/L Respiration Rate b/min O2 Delivery Device Vent Mode FiO2 EPAP cmH2O IPAP cmH2O Sodium (135-145) mmol/L Potassium (3.5-4.5) mmol/L Chloride (101-111) mmol/L Carbon Dioxide (21-32) mmol/L Anion Gap (6-13) BUN (6-20) mg/dL Creatinine (0.6-1.3) mg/dL Estimated GFR (MDRD) (>89) Glucose (74-104) mg/dL POC Whole Bld Glucose 218 H (70 - 100) mg/dL Calcium (8.5-10.3) mg/dL Phosphorus (2.5-5.0) mg/dL Magnesium 1.6 L (1.7-2.3) mg/dL Assessment/Plan - Problem List (1) Acute respiratory failure with hypoxia and hypercarbia Impression: Patient had a low O2 sat on the scene measured by EMS and was 85% on room air in the ER. The etiology was suspected to be her pulmonary edema. Three days into her admission, I learned she has she sleep apnea and was prescribed a CPAP which she does not use. 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 Then she had resp failure with resp acidosis and CO2 narcosis sev days ago, and now needs BIPAP, is in the ICU Plan: Cont BIPAP and supplemental O2, titrate down to room air when possible. 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 Her obtundation is up and down Plan: BIPAP overnight each night and when needed daytime Encourage deep breaths when awake and IS when awake She may need a BIPAP machine or Trilogy machine for home after discharge (3) Acute respiratory acidosis Impression: She was moved into the ICU several days ago and BIPAP was started when she had pH 7.2 and PCO2 147. ABG today shows pH 7.4 with PCO2 60 and PO2 60 She is on BiPAP at night and for naps. Her settings are being adjusted Plan: Remain in ICU on BIPAP at night and for naps. (4) Myotonic dystrophy Conclusion/Plan: As per Hx. She had evidence of weakness even in her speech, when I first met her. 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 She claimed she can still drive a car without any extra equipment. Plan: Cont to hold her statin in case it is adding to muscle weakness (5) Pulmonary edema Conclusion/Plan: The patient did notice DE LEÓN and orthopnea and leg edema, but did not seek medical attention. On exam she has minimal improvement of her anasarca of the legs, they are not as taught, but still has pitting edema to thighs. Her Echocardiogram was done 06/10 and showed preserved LVEF and R heart enlargement plus engorged IVC. Therefore she has PFpEF. Plan: Cont twice daily IV Lasix Follow I's and O's, cont Alegre monitoring, monitor daily weights Cont a low-salt diet when she eats, taking breaks off BIPAP Follow her electrolytes and magnesium daily, replace if low Monitor on telemetry for dysrhythmias (6) New onset a-fib Conclusion/Plan: This was seen at admission & patient denied feeling palpitations . She said she has never been told she has atrial fib. Her EKG showed atrial fib but the heart rate was not extremely rapid. VS were reviewed. Her HR is running 90-100 on new B-corey. Troponins have ruled out ACS as the cause Her TSH ruled out hyperthyroidism as the cause Her Echo showed a preserved ejection fraction. She has diastolic heart failure however. She has a CHADSsVasc2 score of 3 (DM, CHF, Female), therefore a DOAC is considered beneficial per guidelines. 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 Plan: Cont to monitor on telemetry Cont Coreg 6.25 bid for better rate control I need to discuss the risks and benefits of being on an anticoagulant with pt and also with her mother, since I can see that the pt has some cognitive impairment (unable to give detailed answers, is somewhat sleepy, which could be from her MD). (7) Left bundle branch block Conclusion/Plan: The finding of LBBB could be due to Myotonic Dystrophy, which affects the conduction system of the heart. Plan: As in #2 (8) DM type 2 (diabetes mellitus, type 2) Conclusion/Plan: As per Hx Her A1c came back at 9.2, indicating poor glu control Her glu are 200-300's Plan: Cont a diabetic diet, fingerstick glucose checks, sliding scale insulin, hypoglycemia protocol I have her on BID long acting Insulin, nutritional Insulin plus sliding scale. Will increase the a.m. Long acting agent tody
[2023-06-14] MEDS: NOREPINEPHRINE/0.9 % NS 8 MG/250 ML BAG IV SCH (19:40)
[2023-06-14] MEDS: LORazepam 1 MG TABLET PO PRN (20:48)
[2023-06-15] MEDS: SODIUM CHLORIDE FLUSH 0.9% 10 ML SYRINGE IVP SCH ×3 (02:10→17:18)
[2023-06-15] MEDS: GABAPENTIN 300 MG CAPSULE PO SCH ×2 (02:50→21:47)
[2023-06-15] MEDS: FUROSEMIDE 20 MG/2 ML VIAL IVP SCH ×2 (05:12→14:18)
[2023-06-15] MEDS: CEFEPIME 1 GM in SODIUM CHLORIDE 0.9% MINIBAG 100 ML IV SCH ×3 (05:12→21:50)
[2023-06-15 05:16] LABS: BASOPHILS # (AUTO) 0.1 10^3/uL (0.0-0.1); BASOPHILS % (AUTO) 0.9 %; EOSINOPHILS # (AUTO) 0.2 10^3/uL (0.0-0.7); EOSINOPHILS % (AUTO) 2.9 %; HCT - HEMATOCRIT 39.3 % (37.0-47.0); HGB - HEMOGLOBIN 10.8 g/dL (12.0-16.0); LYMPHOCYTES # (AUTO) 1.8 10^3/uL (1.5-3.5); LYMPHOCYTES % (AUTO) 32.8 %; MEAN CORPUSCULAR HEMOGLOBIN 24.9 pg (27.0-31.0); MEAN CORPUSCULAR HGB CONC 27.5 g/dL (32.0-36.0); MEAN CORPUSCULAR VOLUME 90.8 fL (81.0-99.0); MEAN PLATELET VOLUME 10.1 fL (7.9-10.8); MONOCYTES # (AUTO) 0.5 10^3/uL (0.0-1.0); MONOCYTES % (AUTO) 9.9 %; NEUTROPHILS # (AUTO) 2.9 10^3/uL (1.5-6.6); NEUTROPHILS % (AUTO) 53.3 %; PLT - PLATELET COUNT 163 10^3/uL (130-450); RED BLOOD COUNT 4.33 10^6/uL (4.20-5.40); RED CELL DISTRIBUTION WIDTH 15.2 % (12.0-15.0); WHITE BLOOD COUNT 5.4 x10^3/uL (4.8-10.8)
[2023-06-15 05:29] LABS: MAGNESIUM 1.8 mg/dL (1.7-2.3); PHOSPHORUS 3.2 mg/dL (2.5-5.0)
[2023-06-15 05:34] LABS: CALCIUM 9.8 mg/dL (8.5-10.3); CREATININE 0.4 mg/dL (0.6-1.3)
[2023-06-15 05:46] LABS: CALCIUM, IONIZED 1.2 mmol/L (1.15-1.33); VBG PH 7.426 (7.31-7.41)
[2023-06-15] MEDS: INSULIN LISPRO 300 UNIT/3 ML PEN SUBQ SCH ×4 (08:05→21:50)
[2023-06-15] MEDS: ENOXAPARIN 40 MG/0.4 ML SYRINGE SUBQ SCH (09:01)
[2023-06-15] MEDS: FAMOTIDINE 20 MG/2 ML VIAL IVP SCH ×2 (09:02→21:48)
[2023-06-15] MEDS: guaiFENesin 600 MG TABLET PO SCH ×2 (09:02→21:47)
[2023-06-15] MEDS: INSULIN GLARGINE-YFGN 300 UNIT/3 ML PEN SUBQ SCH ×2 (09:07→21:49)
[2023-06-15] MEDS: VANCOMYCIN INJ 1 GM, VANCOMYCIN INJ 250 MG in SODIUM CHLORIDE 0.9% 250 ML IV SCH ×2 (09:56→22:36)
[2023-06-15] MEDS ORDERED: INSULIN GLARGINE-YFGN 300 UNIT/3 ML PEN SUBQ ONE (11:19)
[2023-06-15 16:06] LABS: ABG BASE EXCESS 11.4 mmol/L (-2.0-3.0); ABG HCO3 38.5 mmol/L (22.0-26.0); ABG OXYGEN SATURATION 91 % (94-98); ABG PO2 60 mmHg (80-100)
[2023-06-15 16:13] LABS: ABG PCO2 64 mmHg (34-45); ABG TCO2 40.4 MMOL/L (21.0-29.0)
[2023-06-15] MEDS: ACETAMINOPHEN 325 MG TABLET PO PRN (16:30)
[2023-06-15] MEDS: SODIUM CHLORIDE FLUSH 0.9% 10 ML SYRINGE IVP PRN (21:51)
[2023-06-15] MEDS: LORazepam 1 MG TABLET PO PRN (22:37)
[2023-06-16] MEDS: SODIUM CHLORIDE FLUSH 0.9% 10 ML SYRINGE IVP SCH ×4 (00:31→22:16)
[2023-06-16 05:38] LABS: BASOPHILS % (AUTO) 0.8 %; EOSINOPHILS # (AUTO) 0.2 10^3/uL (0.0-0.7); HCT - HEMATOCRIT 39.7 % (37.0-47.0); HGB - HEMOGLOBIN 10.9 g/dL (12.0-16.0); LYMPHOCYTES # (AUTO) 1.7 10^3/uL (1.5-3.5); LYMPHOCYTES % (AUTO) 33.9 %; MEAN CORPUSCULAR HEMOGLOBIN 25.1 pg (27.0-31.0); MEAN CORPUSCULAR HGB CONC 27.5 g/dL (32.0-36.0); MEAN CORPUSCULAR VOLUME 91.3 fL (81.0-99.0); MEAN PLATELET VOLUME 9.8 fL (7.9-10.8); MONOCYTES # (AUTO) 0.6 10^3/uL (0.0-1.0); MONOCYTES % (AUTO) 11.3 %; NEUTROPHILS # (AUTO) 2.5 10^3/uL (1.5-6.6); NEUTROPHILS % (AUTO) 50.8 %; PLT - PLATELET COUNT 153 10^3/uL (130-450); RED BLOOD COUNT 4.35 10^6/uL (4.20-5.40); RED CELL DISTRIBUTION WIDTH 15.2 % (12.0-15.0)
[2023-06-16 05:57] LABS: CALCIUM 10.1 mg/dL (8.5-10.3); CREATININE 0.4 mg/dL (0.6-1.3)
[2023-06-16] MEDS: CEFEPIME 1 GM in SODIUM CHLORIDE 0.9% MINIBAG 100 ML IV SCH ×3 (06:07→21:39)
[2023-06-16] MEDS: FUROSEMIDE 20 MG/2 ML VIAL IVP SCH ×2 (06:07→13:51)
[2023-06-16] MEDS: SODIUM CHLORIDE FLUSH 0.9% 10 ML SYRINGE IVP PRN ×3 (06:07→20:33)
[2023-06-16 07:02] LABS: MAGNESIUM 1.7 mg/dL (1.7-2.3); PHOSPHORUS 4.2 mg/dL (2.5-5.0)
[2023-06-16] MEDS: guaiFENesin 600 MG TABLET PO SCH ×2 (08:02→20:31)
[2023-06-16] MEDS: INSULIN GLARGINE-YFGN 300 UNIT/3 ML PEN SUBQ SCH ×2 (08:02→20:32)
[2023-06-16] MEDS: INSULIN LISPRO 300 UNIT/3 ML PEN SUBQ SCH ×4 (08:02→20:32)
[2023-06-16] MEDS: ENOXAPARIN 40 MG/0.4 ML SYRINGE SUBQ SCH (08:02)
[2023-06-16] MEDS: FAMOTIDINE 20 MG/2 ML VIAL IVP SCH ×2 (08:03→20:31)
--- NOTE | 2023-06-16 08:19 | PROVIDER PROGRESS NOTE ---
Subjective - Prog Note Date Prog Note Date: 06/16/23 - Subjective Pt reports feeling: Improved (Patient would like to go home, states she feels fine, however she still needs about 6 L of oxygen. To maintain a good oxygen saturation) Subjective: A 52 years old female with history of insulin-dependent diabetes and myotonic dystrophy was admitted on 06/09/2023 for acute respiratory failure with hypoxia and hypercapnia, pulmonary edema and left bundle branch block.Was able to be off of BiPAP, weaning off from high flow nasal cannula Current Medications - Current Medications Current Medications: Active Medications Acetaminophen (Acetaminophen 325 Mg Tablet) 650 mg PO Q4HR PRN PRN Reason: Pain 1 to 4, or Fever Last Admin: 06/15/23 16:30 Dose: 650 mg Enoxaparin Sodium (Enoxaparin 40 Mg/0.4 Ml Syringe) 40 mg SUBQ DAILY [facility] Last Admin: 06/16/23 08:02 Dose: 40 mg Famotidine (Famotidine 20 Mg/2 Ml Vial) 20 mg IVP BID PEREZ Last Admin: 06/16/23 08:03 Dose: 20 mg Furosemide (Furosemide 20 Mg/2 Ml Vial) 20 mg IVP BIDDIURETIC PEREZ Last Admin: 06/16/23 13:51 Dose: 20 mg Gabapentin (Gabapentin 300 Mg Capsule) 300 mg PO QPM PEREZ Last Admin: 06/15/23 21:47 Dose: 300 mg Guaifenesin (Guaifenesin 600 Mg Tablet) 600 mg PO BID PEREZ Last Admin: 06/16/23 08:02 Dose: 600 mg Haloperidol (Haloperidol 10 Mg/5 Ml Udc) 5 mg PO Q6HR PRN PRN Reason: Agitation Last Admin: 06/16/23 15:20 Dose: 5 mg Cefepime HCl 1 gm/ Sodium (Chloride) 100 mls @ 200 mls/hr IV Q8H PEREZ Stop: 06/18/23 21:59 Last Infusion: 06/16/23 14:30 Dose: Infused Vancomycin HCl 1 gm/Vancomycin HCl 250 mg/ Sodium Chloride 250 mls @ 167 mls/hr IV Q12H [facility] Stop: 06/18/23 09:59 Last Infusion: 06/16/23 12:05 Dose: Infused Insulin Glargine-yfgn (Insulin Glargine-Yfgn 300 Unit/3 Ml Pen) 20 unit SUBQ QPM PEREZ Last Admin: 06/15/23 21:49 Dose: 20 unit Insulin Glargine-yfgn (Insulin Glargine-Yfgn 300 Unit/3 Ml Pen) 28 unit SUBQ DAILY [facility] Last Admin: 06/16/23 08:02 Dose: 28 unit Insulin Human Lispro (Insulin Lispro 300 Unit/3 Ml Pen) 1 - 9 unit SUBQ 0 800,1200,1700,2100 PEREZ; Protocol Last Admin: 06/16/23 17:35 Dose: 3 unit Lorazepam (Lorazepam 1 Mg Tablet) 1 mg PO QPM PRN PRN Reason: Insomnia Last Admin: 06/15/23 22:37 Dose: 1 mg Ondansetron HCl (Ondansetron 4 Mg/2 Ml Vial) 4 mg IVP Q6HR PRN PRN Reason: Nausea / Vomiting Last Admin: 06/10/23 18:08 Dose: 4 mg Oxymetazoline HCl (Oxymetazoline Hcl 100 Sprays Bottle) 2 sprays ANJEL BID PRN PRN Reason: Nasal Congestion Last Admin: 06/14/23 18:02 Dose: 2 spray Sodium Chloride (Sodium Chloride Flush 0.9% 10 Ml Syringe) 10 ml IVP PRN PRN PRN Reason: NEEDED PER PROVIDER ORDERS Last Admin: 06/16/23 13:52 Dose: 20 ml Sodium Chloride (Sodium Chloride Flush 0.9% 10 Ml Syringe) 10 ml IVP 0100,0900,1700 [facility] Last Admin: 06/16/23 16:42 Dose: 10 ml Gabapentin [Neurontin] 300 mg PO DAILY 06/09/23 Insulin Glargine,Hum.rec.anlog [Dannaglar Kwikpen U-100] 52 units SUBQ HS 06/09/23 Liraglutide [Victoza 2-Pal] 1.2 mg SUBQ DAILY 06/09/23 Losartan Potassium 12.5 mg PO DAILY 06/09/23 Simvastatin [Zocor] 10 mg PO DAILY 06/09/23 Cholecalciferol [Vitamin D3] 400 unit PO DAILY 06/10/23 Tocopheryl [Vitamin E] 400 unit PO DAILY 06/10/23 Vitamin B Complex 1 each PO DAILY 06/10/23 Objective - Vital Signs/Intake & Output Reviewed Vital Signs: Yes Vital Signs: Vital Signs Pulse Resp BP Pulse Ox O2 Flow Rate 06/16/23 07:47 6 06/16/23 07:00 95 21 109/63 92 6 06/16/23 06:00 101 H 22 84/70 L 93 10 06/16/23 05:00 100 21 99/58 L 93 10 Intake & Output: Intake & Output 06/13/23 06/14/23 06/15/23 06/16/23 23:59 23:59 23:59 23:59 Intake Total 1410 4965.664 7836 350 Output Total 2587 3897 3785 1274 [facility] -[phone] -[phone] - Objective General Appearance: positive: Alert, Mild distress, Anxious ENT: positive: ENT inspection nml, Other (Dry mucous membrane,) Neck: positive: No JVD Respiratory: positive: Chest non-tender. negative: Wheezes, Rales, Rhonchi Cardiovascular: positive: Regular rate & rhythm Abdomen: positive: Non-tender, No distention Skin: positive: Warm, Dry, Cyanosis (Lip has mild Cyanosis) Extremities: positive: Non-tender, Full ROM - Lab Results Fish Bones: 06/16/23 04:58 06/16/23 04:58 Other Labs: Lab Results x24hrs 06/16/23 06/16/23 06/16/23 Range/Units 07:52 04:58 04:58 WBC (4.8-10.8) x10^3/uL RBC (4.20-5.40) 10^6/uL Hgb (12.0-16.0) g/dL Hct (37.0-47.0) % MCV (81.0-99.0) fL MCH (27.0-31.0) pg MCHC (32.0-36.0) g/dL RDW (12.0-15.0) % Plt Count (130-450) 10^3/uL MPV (7.9-10.8) fL Neut # (Auto) (1.5-6.6) 10^3/uL Lymph # (Auto) (1.5-3.5) 10^3/uL [place] # (Auto) (0.0-1.0) 10^3/uL Eos # (Auto) (0.0-0.7) 10^3/uL Baso # (Auto) (0.0-0.1) 10^3/uL Absolute Nucleated RBC x10^3/uL Nucleated RBC % /100WBC Bld Gas Analysis Time Sample Site ABG pH (7.35-7.45) ABG pCO2 (34-45) mmHg ABG pO2 (80-100) mmHg ABG HCO3 (22.0-26.0) mmol/L ABG Total CO2 (21.0-29.0) MMOL/L ABG O2 Saturation (94-98) % ABG Base Excess (-2.0-3.0) mmol/L [place]ie Test O2 Delivery Device O2 Liters/Min LPM Sodium 145 (135-145) mmol/L Potassium 4.0 (3.5-4.5) mmol/L Chloride 99 L (101-111) mmol/L Carbon Dioxide 45 H* (21-32) mmol/L Anion Gap 1.0 L (6-13) BUN 7 (6-20) mg/dL Creatinine 0.4 L (0.6-1.3) mg/dL Estimated GFR (MDRD) 167 (>89) Glucose 137 H (74-104) mg/dL POC Whole Bld Glucose 116 H (70 - 100) mg/dL Calcium 10.1 (8.5-10.3) mg/dL Phosphorus 4.2 (2.5-5.0) mg/dL Magnesium 1.7 (1.7-2.3) mg/dL 06/16/23 06/15/23 06/15/23 Range/Units 04:58 20:49 17:06 WBC 5.0 (4.8-10.8) x10^3/uL RBC 4.35 (4.20-5.40) 10^6/uL Hgb 10.9 L (12.0-16.0) g/dL Hct 39.7 (37.0-47.0) % MCV 91.3 (81.0-99.0) fL MCH 25.1 L (27.0-31.0) pg MCHC 27.5 L (32.0-36.0) g/dL RDW 15.2 H (12.0-15.0) % Plt Count 153 (130-450) 10^3/uL MPV 9.8 (7.9-10.8) fL Neut # (Auto) 2.5 (1.5-6.6) 10^3/uL Lymph # (Auto) 1.7 (1.5-3.5) 10^3/uL [place] # (Auto) 0.6 (0.0-1.0) 10^3/uL Eos # (Auto) 0.2 (0.0-0.7) 10^3/uL Baso # (Auto) 0.0 (0.0-0.1) 10^3/uL Absolute Nucleated RBC 0.00 x10^3/uL Nucleated RBC % 0.0 /100WBC Bld Gas Analysis Time Sample Site ABG pH (7.35-7.45) ABG pCO2 (34-45) mmHg ABG pO2 (80-100) mmHg ABG HCO3 (22.0-26.0) mmol/L ABG Total CO2 (21.0-29.0) MMOL/L ABG O2 Saturation (94-98) % ABG Base Excess (-2.0-3.0) mmol/L Davie Test O2 Delivery Device O2 Liters/Min LPM Sodium (135-145) mmol/L Potassium (3.5-4.5) mmol/L Chloride (101-111) mmol/L Carbon Dioxide (21-32) mmol/L Anion Gap (6-13) BUN (6-20) mg/dL Creatinine (0.6-1.3) mg/dL Estimated GFR (MDRD) (>89) Glucose (74-104) mg/dL POC Whole Bld Glucose 226 H 227 H (70 - 100) mg/dL Calcium (8.5-10.3) mg/dL Phosphorus (2.5-5.0) mg/dL Magnesium (1.7-2.3) mg/dL 06/15/23 06/15/23 Range/Units 15:58 12:36 WBC (4.8-10.8) x10^3/uL RBC (4.20-5.40) 10^6/uL Hgb (12.0-16.0) g/dL Hct (37.0-47.0) % MCV (81.0-99.0) fL MCH (27.0-31.0) pg MCHC (32.0-36.0) g/dL RDW (12.0-15.0) % Plt Count (130-450) 10^3/uL MPV (7.9-10.8) fL Neut # (Auto) (1.5-6.6) 10^3/uL Lymph # (Auto) (1.5-3.5) 10^3/uL [place] # (Auto) (0.0-1.0) 10^3/uL Eos # (Auto) (0.0-0.7) 10^3/uL Baso # (Auto) (0.0-0.1) 10^3/uL Absolute Nucleated RBC x10^3/uL Nucleated RBC % /100WBC Bld Gas Analysis Time 1606 Sample Site RIGHT BRACHIAL ABG pH 7.40 (7.35-7.45) ABG pCO2 64 H* (34-45) mmHg ABG pO2 60 L (80-100) mmHg ABG HCO3 38.5 H (22.0-26.0) mmol/L ABG Total CO2 40.4 H* (21.0-29.0) MMOL/L ABG O2 Saturation 91 L (94-98) % ABG Base Excess 11.4 H (-2.0-3.0) mmol/L Davie Test NOT APPLICABLE O2 Delivery Device NASAL CANNULA O2 Liters/Min 2.50 LPM Sodium (135-145) mmol/L Potassium (3.5-4.5) mmol/L Chloride (101-111) mmol/L Carbon Dioxide (21-32) mmol/L Anion Gap (6-13) BUN (6-20) mg/dL Creatinine (0.6-1.3) mg/dL Estimated GFR (MDRD) (>89) Glucose (74-104) mg/dL POC Whole Bld Glucose 188 H (70 - 100) mg/dL Calcium (8.5-10.3) mg/dL Phosphorus (2.5-5.0) mg/dL Magnesium (1.7-2.3) mg/dL - Diagnostic Imaging Diagnostic Imaging Results: positive: Final report reviewed Sepsis Event Note (H) - Evaluation Current Stage of Sepsis: Ruled out Assessment/Plan - Problem List (1) Acute respiratory failure with hypoxia and hypercarbia Impression: Improved PCO2 65 then 74 then 64, stable Able to be weaned off from BiPAP Still needs oxygen supply Stable enough to be a MedSur floor, transferred out of ICU (2) CO2 narcosis Impression: Secondary to her myotonic dystrophy Muscular impairment will cause severe CO2 retention. Patient is awake alert, mental status has improved. 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 Continue Coreg 6.25 twice daily for rate control Telemetry for high risk of arrhythmia Need to have further discussion with patient and mom for the use of anticoagulant Patient appears to have cognitive impairment, may not able to make sound deci sions (6) DM type 2 (diabetes mellitus, type 2) Impression: A1c 9.2 Blood glucose about 200s to 300s Give diabetes diet Give long-acting insulin and sliding scale for meals
[2023-06-16] MEDS: VANCOMYCIN INJ 1 GM, VANCOMYCIN INJ 250 MG in SODIUM CHLORIDE 0.9% 250 ML IV SCH ×2 (10:30→22:15)
[2023-06-16] MEDS ORDERED: HALOPERIDOL 10 MG/5 ML UDC PO PRN (14:09)
[2023-06-16] MEDS: GABAPENTIN 300 MG CAPSULE PO SCH (20:31)
[2023-06-16] MEDS: LORazepam 1 MG TABLET PO PRN (20:31)
[2023-06-16] MEDS: traZODone 50 MG TABLET PO SCH (20:31)
[2023-06-17 04:20] LABS: CALCIUM, IONIZED 1.24 mmol/L (1.15-1.33); VBG PH 7.401 (7.31-7.41)
[2023-06-17 04:21] LABS: BASOPHILS % (AUTO) 0.7 %; EOSINOPHILS # (AUTO) 0.1 10^3/uL (0.0-0.7); EOSINOPHILS % (AUTO) 2.3 %; HCT - HEMATOCRIT 40.1 % (37.0-47.0); LYMPHOCYTES # (AUTO) 1.3 10^3/uL (1.5-3.5); LYMPHOCYTES % (AUTO) 21.7 %; MEAN CORPUSCULAR HEMOGLOBIN 24.9 pg (27.0-31.0); MEAN CORPUSCULAR HGB CONC 27.4 g/dL (32.0-36.0); MEAN CORPUSCULAR VOLUME 90.7 fL (81.0-99.0); MEAN PLATELET VOLUME 9.9 fL (7.9-10.8); MONOCYTES # (AUTO) 0.6 10^3/uL (0.0-1.0); NEUTROPHILS # (AUTO) 3.9 10^3/uL (1.5-6.6); PLT - PLATELET COUNT 158 10^3/uL (130-450); RED BLOOD COUNT 4.42 10^6/uL (4.20-5.40); RED CELL DISTRIBUTION WIDTH 15.1 % (12.0-15.0)
[2023-06-17 04:36] LABS: MAGNESIUM 1.5 mg/dL (1.7-2.3); PHOSPHORUS 3.6 mg/dL (2.5-5.0)
[2023-06-17 04:40] LABS: CALCIUM 10.1 mg/dL (8.5-10.3); CREATININE 0.4 mg/dL (0.6-1.3); POTASSIUM 3.7 mmol/L (3.5-4.5)
[2023-06-17] MEDS: FUROSEMIDE 20 MG/2 ML VIAL IVP SCH ×2 (05:38→18:57)
[2023-06-17] MEDS: CEFEPIME 1 GM in SODIUM CHLORIDE 0.9% MINIBAG 100 ML IV SCH ×3 (05:38→21:02)
[2023-06-17] MEDS ORDERED: MAGNESIUM SULFATE 2 GRAM 2 GM/50 ML BAG IV ONE (08:20)
[2023-06-17] MEDS: INSULIN LISPRO 300 UNIT/3 ML PEN SUBQ SCH ×4 (08:24→21:01)
--- NOTE | 2023-06-17 08:26 | PROVIDER PROGRESS NOTE ---
Assessment/Plan - Problem List (1) Acute respiratory failure with hypoxia and hypercarbia Assessment/Plan: Improving, however still need significant amount of oxygen to keep a safe oxygenation When awake patient need about 10 to 15 L of oxygen by nasal cannula Mental status is clear Had family meeting with patient and mom, sister and [id number] today. Family understands that patient is not safe and ready to return to home at this point (2) CO2 narcosis Assessment/Plan: Improved, Avoid benzo at night or any medication to suppress respiratory drive (4) Pulmonary edema Assessment/Plan: Improved, BNP 99 in early phase of hospitalization Monitoring volume status Give Lasix 20 mg twice daily (5) New onset a-fib Assessment/Plan: Still in A-fib Rate controlled, was not given anticoagulant due to patient poor cognitive function, With concerns of not able to take medication properly, and high risk for fall due to muscular condition (6) DM type 2 (diabetes mellitus, type 2) Assessment/Plan: Stable, on insulin sliding scale, continue with diabetes diet - Current Meds Current Meds: Current Medications Generic Name Dose Route Start Last Admin Trade Name Freq PRN Reason Stop Dose Admin Acetaminophen 650 mg 06/09/23 13:50 06/15/23 16:30 Acetaminophen 325 Mg Tablet PO 650 mg Q4HR PRN Administration Pain 1 to 4, or Fever Enoxaparin Sodium 40 mg 06/10/23 09:00 06/16/23 08:02 Enoxaparin 40 Mg/0.4 Ml Syringe SUBQ 40 mg DAILY PEREZ Administration Famotidine 20 mg 06/11/23 11:25 06/16/23 20:31 Famotidine 20 Mg/2 Ml Vial IVP 20 mg BID PEREZ Administration Furosemide 20 mg 06/10/23 06:00 06/17/23 05:38 Furosemide 20 Mg/2 Ml Vial IVP 20 mg BIDDIURETIC PEREZ Administration Gabapentin 300 mg 06/15/23 02:25 06/16/23 20:31 Gabapentin 300 Mg Capsule PO 300 mg QPM PEREZ Administration Guaifenesin 600 mg 06/12/23 14:00 06/16/23 20:31 Guaifenesin 600 Mg Tablet PO 600 mg BID PEREZ Administration Haloperidol 5 mg 06/16/23 14:09 06/16/23 15:20 Haloperidol 10 Mg/5 Ml Udc PO 5 mg Q6HR PRN Administration Agitation Cefepime HCl 1 gm/ Sodium 100 mls @ 200 mls/hr 06/11/23 22:00 06/17/23 06:10 Chloride IV 06/18/23 21:59 Infused Q8H PEREZ Infusion Vancomycin HCl 1 gm/ 250 mls @ 167 mls/hr 06/13/23 10:00 06/16/23 23:57 Vancomycin HCl 250 mg/ Sodium IV 06/18/23 09:59 Infused Chloride Q12H PEREZ Infusion Insulin Glargine-yfgn 20 unit 06/15/23 21:00 06/16/23 20:32 Insulin Glargine-Yfgn 300 Unit/3 Ml Pen SUBQ 20 unit QPM PEREZ Administration Insulin Glargine-yfgn 28 unit 06/16/23 09:00 06/16/23 08:02 Insulin Glargine-Yfgn 300 Unit/3 Ml Pen SUBQ 28 unit DAILY PEREZ Administration Insulin Human Lispro 1 - 9 unit 06/10/23 17:21 06/17/23 08:24 Insulin Lispro 300 Unit/3 Ml Pen SUBQ Not Given 0800,1200,1700,2100 [facility] Protocol Lorazepam 1 mg 06/14/23 09:01 06/16/23 20:31 Lorazepam 1 Mg Tablet PO 1 mg QPM PRN Administration Insomnia Ondansetron HCl 4 mg 06/09/23 13:50 06/10/23 18:08 Ondansetron 4 Mg/2 Ml Vial IVP 4 mg Q6HR PRN Administration Nausea / Vomiting Oxymetazoline HCl 2 sprays 06/13/23 11:02 06/14/23 18:02 Oxymetazoline Hcl 100 Sprays Bottle ANJEL 2 spray BID PRN Administration Nasal Congestion Sodium Chloride 10 ml 06/09/23 13:50 06/16/23 20:33 Sodium Chloride Flush 0.9% 10 Ml Syringe IVP 10 ml PRN PRN Administration NEEDED PER PROVIDER ORDERS Sodium Chloride 10 ml 06/09/23 17:00 06/16/23 22:16 Sodium Chloride Flush 0.9% 10 Ml Syringe IVP 10 ml 0100,0900,1700 PEREZ Administration Trazodone HCl 25 mg 06/16/23 21:00 06/16/23 20:31 Trazodone 50 Mg Tablet PO 25 mg QPM PEREZ Administration - Lab Result Fish Bone Diagrams: 06/17/23 04:13 06/17/23 04:13 - Additional Planning My Orders: My Active Orders 06/16/23 14:09 Haloperidol Oral Soln [Haldol Oral Soln] 5 mg PO Q6HR PRN 06/16/23 21:00 traZODone [Desyrel] 25 mg PO QPM 06/17/23 08:20 MAGNESIUM SULFATE 2 GRAMS IV X1 Magnesium Sulfate 2 Gram [Magnesium Sulfate] 2 gm in 50 ml IV ONCE 06/17/23 09:00 Magnesium Oxide [Mag Ox] 400 mg PO DAILYWM Subjective - Subjective Patient Reports: Feeling Better (Patient keeps saying on to go home, with family members at bedside, patient states she understand she need to get better before she is able to go home safely) Objective Vital Signs: Vital Signs - 24 hr 06/16/23 06/16/23 06/16/23 09:00 10:00 11:00 Temperature Heart Rate [ 100 89 97 Monitoring electrodes] Respiratory 16 19 18 Rate Blood Pressure 106/44 L 104/54 L 115/55 L [Right Brachial artery] O2 Saturation 92 92 91 L If not protocol 6 6 6 : Oxygen Flow, liters/minute 06/16/23 06/16/23 06/17/23 20:15 23:30 00:00 Temperature 36.8 C Heart Rate [ 95 91 Monitoring electrodes] Respiratory 20 12 Rate Blood Pressure 107/54 L 111/50 L [Right Brachial artery] O2 Saturation 93 92 If not protocol 6 10 6 : Oxygen Flow, liters/minute 06/17/23 04:00 Temperature 36.7 C Heart Rate [ 98 Monitoring electrodes] Respiratory 20 Rate Blood Pressure 108/49 L [Right Brachial artery] O2 Saturation 93 If not protocol 10 : Oxygen Flow, liters/minute Oxygen O2 Source Oxymask I&O (Last 24 Hrs): Intake and Output Totals x24h 06/15/23 06/16/23 06/17/23 23:59 23:59 23:59 Intake Total 1810 1430 100 Output Total 4081 0692 625 Balance -1975 -529 -525 General: Alert, Cooperative, Other (Has cognitive impairment per mom 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 Unable to work after her 3 years ago, patient removed back to her parents home) Cardiovascular: Other (irregular rhythm) Respiratory: Other (Mild respiratory distress, however no wheezes no rales no rhonchi) Extremities: Other (Mild edema) - Results Results: Laboratory Results WBC 6.0 x10^3/uL (4.8-10.8) 06/17/23 04:13 RBC 4.42 10^6/uL (4.20-5.40) 06/17/23 04:13 Hgb 11.0 g/dL (12.0-16.0) L 06/17/23 04:13 Hct 40.1 % (37.0-47.0) 06/17/23 04:13 MCV 90.7 fL (81.0-99.0) 06/17/23 04:13 MCH 24.9 pg (27.0-31.0) L 06/17/23 04:13 MCHC 27.4 g/dL (32.0-36.0) L 06/17/23 04:13 RDW 15.1 % (12.0-15.0) H 06/17/23 04:13 Plt Count 158 10^3/uL (130-450) 06/17/23 04:13 MPV 9.9 fL (7.9-10.8) 06/17/23 04:13 Neut # (Auto) 3.9 10^3/uL (1.5-6.6) 06/17/23 04:13 Lymph # (Auto) 1.3 10^3/uL (1.5-3.5) L 06/17/23 04:13 [place] # (Auto) 0.6 10^3/uL (0.0-1.0) 06/17/23 04:13 Eos # (Auto) 0.1 10^3/uL (0.0-0.7) 06/17/23 04:13 Baso # (Auto) 0.0 10^3/uL (0.0-0.1) 06/17/23 04:13 Absolute Nucleated RBC 0.00 x10^3/uL 06/17/23 04:13 Nucleated RBC % 0.0 /100WBC 06/17/23 04:13 Manual Slide Review Indicated 06/13/23 05:25 WBC Morphology NORMAL APPEARANCE (NORMAL) 06/13/23 05:25 Platelet Estimate NORMAL (130-450,000) (NORMAL) 06/13/23 05:25 Platelet Morphology NORMAL APPEARANCE (NORMAL) 06/13/23 05:25 RBC Morph Micro Appear 1+ ANISOCYTOSIS (NORMAL) 1+ STOMATOCYTES (NORMAL) 1+ HYPOCHROMASIA (NORMAL) 06/13/23 05:25 RBC Morph Micro Appear 1+ ANISOCYTOSIS (NORMAL) 1+ STOMATOCYTES (NORMAL) 1+ HYPOCHROMASIA (NORMAL) 06/13/23 05:25 RBC Morph Micro Appear 1+ ANISOCYTOSIS (NORMAL) 1+ STOMATOCYTES (NORMAL) 1+ H YPOCHROMASIA (NORMAL) 06/13/23 05:25 Bld Gas Analysis Time 1606 06/15/23 15:58 Sample Site RIGHT BRACHIAL 06/15/23 15:58 ABG pH 7.40 (7.35-7.45) 06/15/23 15:58 ABG pCO2 64 mmHg (34-45) H* 06/15/23 15:58 ABG pO2 60 mmHg (80-100) L 06/15/23 15:58 ABG HCO3 38.5 mmol/L (22.0-26.0) H 06/15/23 15:58 ABG Total CO2 40.4 MMOL/L (21.0-29.0) H* 06/15/23 15:58 ABG O2 Saturation 91 % (94-98) L 06/15/23 15:58 ABG Base Excess 11.4 mmol/L (-2.0-3.0) H 06/15/23 15:58 [place]ie Test NOT APPLICABLE 06/15/23 15:58 VBG pH 7.401 (7.31-7.41) 06/17/23 04:13 Ionized Calcium 1.24 mmol/L (1.15-1.33) 06/17/23 04:13 Respiration Rate 16 b/min 06/14/23 15:30 O2 Delivery Device NASAL CANNULA 06/15/23 15:58 O2 Liters/Min 2.50 LPM 06/15/23 15:58 Vent Mode SYNCHRONOUS/TIMES 06/14/23 15:30 FiO2 50.00 06/14/23 15:30 EPAP 6 cmH2O 06/14/23 15:30 IPAP 14 cmH2O 06/14/23 15:30 Sodium 144 mmol/L (135-145) 06/17/23 04:13 Potassium 3.7 mmol/L (3.5-4.5) 06/17/23 04:13 Chloride 100 mmol/L (101-111) L 06/17/23 04:13 Carbon Dioxide 43 mmol/L (21-32) H* 06/17/23 04:13 Anion Gap 1.0 (6-13) L 06/17/23 04:13 BUN 6 mg/dL (6-20) 06/17/23 04:13 Creatinine 0.4 mg/dL (0.6-1.3) L 06/17/23 04:13 Estimated GFR (MDRD) 167 (>89) 06/17/23 04:13 Glucose 142 mg/dL (74-104) H 06/17/23 04:13 POC Whole Bld Glucose 133 mg/dL (70 - 100) H 06/17/23 07:53 Estimat Average Glucose 226 mg/dL (70-100) H 06/10/23 06:12 Hemoglobin A1c % 9.5 % (4.27-6.07) H 06/10/23 06:12 Calcium 10.1 mg/dL (8.5-10.3) 06/17/23 04:13 Phosphorus 3.6 mg/dL (2.5-5.0) 06/17/23 04:13 Magnesium 1.5 mg/dL (1.7-2.3) L 06/17/23 04:13 Total Bilirubin 0.9 mg/dL (0.2-1.0) 06/09/23 09:53 AST 13 IU/L (10-42) 06/09/23 09:53 ALT 10 IU/L (10-60) 06/09/23 09:53 Alkaline Phosphatase 76 IU/L (42-121) 06/09/23 09:53 Troponin I High Sens 36.4 ng/L (2.3-14.8) H* 06/11/23 11:31 B-Natriuretic Peptide 99 pg/mL (5-100) 06/09/23 09:53 Total Protein 6.4 g/dL (6.4-8.9) 06/09/23 09:53 Albumin 3.9 g/dL (3.2-5.5) 06/09/23 09:53 Globulin 2.5 g/dL (2.1-4.2) 06/09/23 09:53 Albumin/Globulin Ratio 1.6 (1.0-2.2) 06/09/23 09:53 TSH 1.74 uIU/mL (0.34-5.60) 06/10/23 06:12 Urine Color DARK YELLOW 06/09/23 12:25 Urine Clarity CLOUDY (CLEAR) 06/09/23 12:25 Urine pH 6.0 PH (5.0-7.5) 06/09/23 12:25 Ur Specific [place] 1.025 (1.002-1.030) 06/09/23 12:25 Urine Protein TRACE mg/dL (NEGATIVE) 06/09/23 12:25 Urine Glucose (UA) 250 mg/dL (NEGATIVE) H 06/09/23 12:25 Urine Ketones NEGATIVE mg/dL (NEGATIVE) 06/09/23 12:25 Urine Occult Blood LARGE (NEGATIVE) H 06/09/23 12:25 Urine Nitrite NEGATIVE (NEGATIVE) 06/09/23 12:25 Urine Bilirubin NEGATIVE (NEGATIVE) 06/09/23 12:25 Urine Urobilinogen 0.2 (NORMAL) E.U./dL (NORMAL) 06/09/23 12:25 Ur Leukocyte Esterase NEGATIVE (NEGATIVE) 06/09/23 12:25 Urine RBC TNTC /HPF (0-5) H 06/09/23 12:25 Urine WBC 4-5 /HPF (0-5) 06/09/23 12:25 Ur Squamous Epith Cells MOD Squamous (<= Few) H 06/09/23 12:25 Urine Crystals >50 Calcium Oxalate /LPF 06/09/23 12:25 Urine Bacteria Moderate /HPF (None Seen) H 06/09/23 12:25 Urine Mucus Few Strands 06/09/23 12:25 Ur Microscopic Review INDICATED 06/09/23 12:25 Urine Culture Comments NOT INDICATED 06/09/23 12:25 Nasal Adenovirus (PCR) NOT DETECTED 06/09/23 09:50 Nasal B. parapertussis DNA (PCR) NOT DETECTED 06/09/23 09:50 Nasal Coronavir 229E PCR NOT DETECTED 06/09/23 09:50 Nasal Coronavir HKU1 PCR NOT DETECTED 06/09/23 09:50 Nasal Coronavir NL63 PCR NOT DETECTED 06/09/23 09:50 Nasal Coronavir OC43 PCR NOT DETECTED 06/09/23 09:50 Nasal Enterovir/Rhinovir PCR NOT DETECTED 06/09/23 09:50 Nasal Influenza B PCR NOT DETECTED 06/09/23 09:50 Nasal Influenza A PCR NOT DETECTED 06/09/23 09:50 Nasal Parainfluen 1 PCR NOT DETECTED 06/09/23 09:50 Nasal Parainfluen 2 PCR NOT DETECTED 06/09/23 09:50 Nasal Parainfluen 3 PCR NOT DETECTED 06/09/23 09:50 Nasal Parainfluen 4 PCR NOT DETECTED 06/09/23 09:50 Nasal RSV (PCR) NOT DETECTED 06/09/23 09:50 Nasal Screen MRSA (PCR) NEGATIVE (NEGATIVE) 06/11/23 05:00 Nasal B.pertussis DNA PCR NOT DETECTED 06/09/23 09:50 Nasal C.pneumoniae (PCR) NOT DETECTED 06/09/23 09:50 Anjel Human Metapneumo PCR NOT DETECTED 06/09/23 09:50 Nasal M.pneumoniae (PCR) NOT DETECTED 06/09/23 09:50 Nasal SARS-CoV-2 (PCR) NOT DETECTED 06/09/23 09:50 Last Dose Date UNKNOWN 06/13/23 05:25 Last Dose Time UNKNOWN 06/13/23 05:25 Vancomycin Peak 43.7 ug/mL (20.0-40.0) H 06/11/23 21:00 Vancomycin Trough 21.6 ug/mL 06/13/23 05:25 Sepsis Event Note (H) - Evaluation Current Stage of Sepsis: Ruled out ABX Reporting Has patient been on IV antibiotics over the past 48 hours?: Yes Current Medications - Current Medications Current Medications: Active Medications Acetaminophen (Acetaminophen 325 Mg Tablet) 650 mg PO Q4HR PRN PRN Reason: Pain 1 to 4, or Fever Last Admin: 06/15/23 16:30 Dose: 650 mg Enoxaparin Sodium (Enoxaparin 40 Mg/0.4 Ml Syringe) 40 mg SUBQ DAILY PEREZ Last Admin: 06/17/23 09:15 Dose: 40 mg Famotidine (Famotidine 20 Mg/2 Ml Vial) 20 mg IVP BID PEREZ Last Admin: 06/17/23 09:15 Dose: 20 mg Furosemide (Furosemide 20 Mg/2 Ml Vial) 20 mg IVP BIDDIURETIC PEREZ Last Admin: 06/17/23 05:38 Dose: 20 mg Gabapentin (Gabapentin 300 Mg Capsule) 300 mg PO QPM [facility] Last Admin: 06/16/23 20:31 Dose: 300 mg Guaifenesin (Guaifenesin 600 Mg Tablet) 600 mg PO BID [facility] Last Admin: 06/17/23 09:14 Dose: 600 mg Haloperidol (Haloperidol 10 Mg/5 Ml Udc) 5 mg PO Q8H PRN PRN Reason: Agitation Cefepime HCl 1 gm/ Sodium (Chloride) 100 mls @ 200 mls/hr IV Q8H [facility] Stop: 06/18/23 21:59 Last Infusion: 06/17/23 06:10 Dose: Infused Vancomycin HCl 1 gm/Vancomycin HCl 250 mg/ Sodium Chloride 250 mls @ 167 mls/hr IV Q12H [facility] Stop: 06/18/23 09:59 Last Infusion: 06/17/23 13:00 Dose: Infused Insulin Glargine-yfgn (Insulin Glargine-Yfgn 300 Unit/3 Ml Pen) 20 unit SUBQ QPM [facility] Last Admin: 06/16/23 20:32 Dose: 20 unit Insulin Glargine-yfgn (Insulin Glargine-Yfgn 300 Unit/3 Ml Pen) 28 unit SUBQ DAILY [facility] Last Admin: 06/17/23 09:14 Dose: 28 unit Insulin Human Lispro (Insulin Lispro 300 Unit/3 Ml Pen) 1 - 9 unit SUBQ 0800,1200,1700,2100 [facility]; Protocol Last Admin: 06/17/23 12:35 Dose: 1 unit Magnesium Oxide (Magnesium Oxide 400 Mg Tablet) 400 mg PO DAILYWM [facility] Last Admin: 06/17/23 09:15 Dose: 400 mg Ondansetron HCl (Ondansetron 4 Mg/2 Ml Vial) 4 mg IVP Q6HR PRN PRN Reason: Nausea / Vomiting Last Admin: 06/10/23 18:08 Dose: 4 mg Sodium Chloride (Sodium Chloride Flush 0.9% 10 Ml Syringe) 10 ml IVP PRN PRN PRN Reason: NEEDED PER PROVIDER ORDERS Last Admin: 06/16/23 20:33 Dose: 10 ml Sodium Chloride (Sodium Chloride Flush 0.9% 10 Ml Syringe) 10 ml IVP 0100,0900,1700 [facility] Last Admin: 06/17/23 09:23 Dose: 10 ml Trazodone HCl (Trazodone 50 Mg Tablet) 25 mg PO QPM PEREZ Last Admin: 06/16/23 20:31 Dose: 25 mg Gabapentin [Neurontin] 300 mg PO DAILY 06/09/23 Insulin Glargine,Hum.rec.anlog [Basaglar Kwikpen U-100] 52 units SUBQ HS 06/09/23 Liraglutide [Victoza 2-Pal] 1.2 mg SUBQ DAILY 06/09/23 Losartan Potassium 12.5 mg PO DAILY 06/09/23 Simvastatin [Zocor] 10 mg PO DAILY 06/09/23 Cholecalciferol [Vitamin D3] 400 unit PO DAILY 06/10/23 Tocopheryl [Vitamin E] 400 unit PO DAILY 06/10/23 Vitamin B Complex 1 each PO DAILY 06/10/23
[2023-06-17] MEDS: guaiFENesin 600 MG TABLET PO SCH ×2 (09:14→21:00)
[2023-06-17] MEDS: INSULIN GLARGINE-YFGN 300 UNIT/3 ML PEN SUBQ SCH ×2 (09:14→21:01)
[2023-06-17] MEDS: FAMOTIDINE 20 MG/2 ML VIAL IVP SCH ×2 (09:15→21:00)
[2023-06-17] MEDS: ENOXAPARIN 40 MG/0.4 ML SYRINGE SUBQ SCH (09:15)
[2023-06-17] MEDS: MAGNESIUM OXIDE 400 MG TABLET PO SCH (09:15)
[2023-06-17] MEDS: SODIUM CHLORIDE FLUSH 0.9% 10 ML SYRINGE IVP SCH ×3 (09:23→23:47)
[2023-06-17] MEDS: VANCOMYCIN INJ 1 GM, VANCOMYCIN INJ 250 MG in SODIUM CHLORIDE 0.9% 250 ML IV SCH ×2 (11:10→21:20)
[2023-06-17] MEDS ORDERED: HALOPERIDOL 10 MG/5 ML UDC PO PRN (15:29)
[2023-06-17] MEDS: GABAPENTIN 300 MG CAPSULE PO SCH (21:00)
[2023-06-17] MEDS: traZODone 50 MG TABLET PO SCH (21:00)
[2023-06-18] MEDS: SODIUM CHLORIDE FLUSH 0.9% 10 ML SYRINGE IVP SCH ×3 (05:25→23:44)
[2023-06-18] MEDS: CEFEPIME 1 GM in SODIUM CHLORIDE 0.9% MINIBAG 100 ML IV SCH ×2 (05:25→14:48)
[2023-06-18] MEDS: FUROSEMIDE 20 MG/2 ML VIAL IVP SCH ×2 (05:25→14:49)
[2023-06-18] MEDS: SODIUM CHLORIDE FLUSH 0.9% 10 ML SYRINGE IVP PRN (05:26)
[2023-06-18 06:04] LABS: CALCIUM, IONIZED 1.29 mmol/L (1.15-1.33); VBG PH 7.348 (7.31-7.41)
[2023-06-18 06:15] LABS: MAGNESIUM 1.8 mg/dL (1.7-2.3); PHOSPHORUS 3.3 mg/dL (2.5-5.0)
[2023-06-18] MEDS: INSULIN GLARGINE-YFGN 300 UNIT/3 ML PEN SUBQ SCH ×2 (08:20→21:21)
[2023-06-18] MEDS: FAMOTIDINE 20 MG/2 ML VIAL IVP SCH (08:21)
[2023-06-18] MEDS: MAGNESIUM OXIDE 400 MG TABLET PO SCH (08:22)
[2023-06-18] MEDS: INSULIN LISPRO 300 UNIT/3 ML PEN SUBQ SCH ×4 (08:23→21:20)
[2023-06-18] MEDS: ENOXAPARIN 40 MG/0.4 ML SYRINGE SUBQ SCH (08:23)
[2023-06-18] MEDS: guaiFENesin 600 MG TABLET PO SCH ×2 (08:23→21:12)
--- NOTE | 2023-06-18 12:04 | PROVIDER PROGRESS NOTE ---
Assessment/Plan - Problem List (1) Acute respiratory failure with hypoxia and hypercarbia Assessment/Plan: No change , stable Patient still needs 10 to 15 L of oxygen by oxime mask, however she does not like it complains of discomfort of using the mask, with her poor insight to her condition, less likely she will compliant with oxygen use May need to consider palliative care consult (3) Myotonic dystrophy Assessment/Plan: Worsening Patient has generalized weakness, PT OT recommend short-term rehab to improve her function (4) Pulmonary edema Assessment/Plan: Appears improved, Reevaluate volume status tomorrow to decide further diuretic regimen (5) New onset a-fib Assessment/Plan: Still in A-fib, Rate controlled, not a candidate for anticoagulant use Palliative care is considered Which is proper for this patient (6) DM type 2 (diabetes mellitus, type 2) Assessment/Plan: On insulin sliding scale Diabetes diet Gluten-free diet as well - Current Meds Current Meds: Current Medications Generic Name Dose Route Start Last Admin Trade Name Freq PRN Reason Stop Dose Admin Acetaminophen 650 mg 06/09/23 13:50 06/15/23 16:30 Acetaminophen 325 Mg Tablet PO 650 mg Q4HR PRN Administration Pain 1 to 4, or Fever Enoxaparin Sodium 40 mg 06/10/23 09:00 06/18/23 08:23 Enoxaparin 40 Mg/0.4 Ml Syringe SUBQ 40 mg DAILY PEREZ Administration Furosemide 20 mg 06/10/23 06:00 06/18/23 05:25 Furosemide 20 Mg/2 Ml Vial IVP 20 mg BIDDIURETIC PEREZ Administration Gabapentin 300 mg 06/15/23 02:25 06/17/23 21:00 Gabapentin 300 Mg Capsule PO 300 mg QPM PEERZ Administration Guaifenesin 600 mg 06/12/23 14:00 06/18/23 08:23 Guaifenesin 600 Mg Tablet PO 600 mg BID PEREZ Administration Cefepime HCl 1 gm/ Sodium 100 mls @ 200 mls/hr 06/11/23 22:00 06/18/23 05:25 Chloride IV 06/18/23 21:59 200 mls/hr Q8H PEREZ Administration Insulin Glargine-yfgn 20 unit 06/15/23 21:00 06/17/23 21:01 Insulin Glargine-Yfgn 300 Unit/3 Ml Pen SUBQ 20 unit QPM PEREZ Administration Insulin Glargine-yfgn 28 unit 06/16/23 09:00 06/18/23 08:20 Insulin Glargine-Yfgn 300 Unit/3 Ml Pen SUBQ 28 unit DAILY PEREZ Administration Insulin Human Lispro 1 - 9 unit 06/10/23 17:21 06/18/23 11:53 Insulin Lispro 300 Unit/3 Ml Pen SUBQ 5 unit 0800,1200,1700,2100 PEREZ Administration Protocol Magnesium Oxide 400 mg 06/17/23 09:00 06/18/23 08:22 Magnesium Oxide 400 Mg Tablet PO 400 mg DAILYWM PEREZ Administration Ondansetron HCl 4 mg 06/09/23 13:50 06/10/23 18:08 Ondansetron 4 Mg/2 Ml Vial IVP 4 mg Q6HR PRN Administration Nausea / Vomiting Sodium Chloride 10 ml 06/09/23 13:50 06/18/23 05:26 Sodium Chloride Flush 0.9% 10 Ml Syringe IVP 10 ml PRN PRN Administration NEEDED PER PROVIDER ORDERS Sodium Chloride 10 ml 06/09/23 17:00 06/18/23 05:25 Sodium Chloride Flush 0.9% 10 Ml Syringe IVP 10 ml 0100,0900,1700 PEREZ Administration Trazodone HCl 25 mg 06/16/23 21:00 06/17/23 21:00 Trazodone 50 Mg Tablet PO 25 mg QPM PEREZ Administration - Lab Result Fish Bone Diagrams: 06/17/23 04:13 06/17/23 04:13 - Additional Planning My Orders: My Active Orders 06/18/23 21:00 Famotidine [Pepcid] 20 mg PO BID 06/19/23 05:00 BMP - BASIC METABOLIC PANEL [CHEM] DAILYLAB CBC [CBC - COMP BLD CT W/AUTO DIFF] [HEME] DAILYLAB 06/20/23 05:00 BMP - BASIC METABOLIC PANEL [CHEM] DAILYLAB CBC [CBC - COMP BLD CT W/AUTO DIFF] [HEME] DAILYLAB 06/21/23 05:00 BMP - BASIC METABOLIC PANEL [CHEM] DAILYLAB CBC [CBC - COMP BLD CT W/AUTO DIFF] [HEME] DAILYLAB 06/22/23 05:00 BMP - BASIC METABOLIC PANEL [CHEM] DAILYLAB CBC [CBC - COMP BLD CT W/AUTO DIFF] [HEME] DAILYLAB 06/23/23 05:00 BMP - BASIC METABOLIC PANEL [CHEM] DAILYLAB CBC [CBC - COMP BLD CT W/AUTO DIFF] [HEME] DAILYLAB Subjective - Subjective Patient Reports: Fatigue (Patient reports she feels tired, she would like to go home and she is complaining about the oxime mask makes her uncomfortable) Objective Vital Signs: Vital Signs - 24 hr 06/17/23 06/17/23 06/17/23 14:00 18:55 22:00 Temperature 36.8 C 37.0 C Heart Rate [ 76 70 Monitoring electrodes] Respiratory 18 18 Rate Blood Pressure 110/59 L 111/48 L [Right Brachial artery] O2 Saturation 94 If not protocol 10 10 10 : Oxygen Flow, liters/minute 06/18/23 06/18/23 06/18/23 00:00 05:38 08:00 Temperature 36.3 C L 36.5 C Heart Rate [ 96 61 56 L Monitoring electrodes] Respiratory 18 20 18 Rate Blood Pressure 101/57 L 93/57 L [Right Brachial artery] O2 Saturation 95 95 92 If not protocol 11 11 11 : Oxygen Flow, liters/minute Oxygen O2 Source Oxymask I&O (Last 24 Hrs): Intake and Output Totals x24h 06/16/23 06/17/23 06/18/23 23:59 23:59 23:59 Intake Total 1430 1230 540 Output Total 1959 1025 600 Balance -529 205 -60 General: Other (Lethargic, answer questions. Cognitive impaired) HEENT: PERRLA, EOMI Neck: Supple Cardiovascular: Other (Irregularly irregular heart rhythm) Respiratory: Other (Mild respiratory distress) Abdomen: Soft, No tenderness Extremities: No cyanosis - Results Results: Laboratory Results WBC 6.0 x10^3/uL (4.8-10.8) 06/17/23 04:13 RBC 4.42 10^6/uL (4.20-5.40) 06/17/23 04:13 Hgb 11.0 g/dL (12.0-16.0) L 06/17/23 04:13 Hct 40.1 % (37.0-47.0) 06/17/23 04:13 MCV 90.7 fL (81.0-99.0) 06/17/23 04:13 MCH 24.9 pg (27.0-31.0) L 06/17/23 04:13 MCHC 27.4 g/dL (32.0-36.0) L 06/17/23 04:13 RDW 15.1 % (12.0-15.0) H 06/17/23 04:13 Plt Count 158 10^3/uL (130-450) 06/17/23 04:13 MPV 9.9 fL (7.9-10.8) 06/17/23 04:13 Neut # (Auto) 3.9 10^3/uL (1.5-6.6) 06/17/23 04:13 Lymph # (Auto) 1.3 10^3/uL (1.5-3.5) L 06/17/23 04:13 [place] # (Auto) 0.6 10^3/uL (0.0-1.0) 06/17/23 04:13 Eos # (Auto) 0.1 10^3/uL (0.0-0.7) 06/17/23 04:13 Baso # (Auto) 0.0 10^3/uL (0.0-0.1) 06/17/23 04:13 Absolute Nucleated RBC 0.00 x10^3/uL 06/17/23 04:13 Nucleated RBC % 0.0 /100WBC 06/17/23 04:13 Manual Slide Review Indicated 06/13/23 05:25 WBC Morphology NORMAL APPEARANCE (NORMAL) 06/13/23 05:25 Platelet Estimate NORMAL (130-450,000) (NORMAL) 06/13/23 05:25 Platelet Morphology NORMAL APPEARANCE (NORMAL) 06/13/23 05:25 RBC Morph Micro Appear 1+ ANISOCYTOSIS (NORMAL) 1+ STOMATOCYTES (NORMAL) 1+ HYPOCHROMASIA (NORMAL) 06/13/23 05:25 RBC Morph Micro Appear 1+ ANISOCYTOSIS (NORMAL) 1+ STOMATOCYTES (NORMAL) 1+ HYPOCHROMASIA (NORMAL) 06/13/23 05:25 RBC Morph Micro Appear 1+ ANISOCYTOSIS (NORMAL) 1+ STOMATOCYTES (NORMAL) 1+ HYPOCHROMASIA (NORMAL) 06/13/23 05:25 Bld Gas Analysis Time 1606 06/15/23 15:58 Sample Site RIGHT BRACHIAL 06/15/23 15:58 ABG pH 7.40 (7.35-7.45) 06/15/23 15:58 ABG pCO2 64 mmHg (34-45) H* 06/15/23 15:58 ABG pO2 60 mmHg (80-100) L 06/15/23 15:58 ABG HCO3 38.5 mmol/L (22.0-26.0) H 06/15/23 15:58 ABG Total CO2 40.4 MMOL/L (21.0-29.0) H* 06/15/23 15:58 ABG O2 Saturation 91 % (94-98) L 06/15/23 15:58 ABG Base Excess 11.4 mmol/L (-2.0-3.0) H 06/15/23 15:58 [place] Test NOT APPLICABLE 06/15/23 15:58 VBG pH 7.348 (7.31-7.41) 06/18/23 05:47 Ionized Calcium 1.29 mmol/L (1.15-1.33) 06/18/23 05:47 Respiration Rate 16 b/min 06/14/23 15:30 O2 Delivery Device NASAL CANNULA 06/15/23 15:58 O2 Liters/Min 2.50 LPM 06/15/23 15:58 Vent Mode SYNCHRONOUS/TIMES 06/14/23 15:30 FiO2 50.00 06/14/23 15:30 EPAP 6 cmH2O 06/14/23 15:30 IPAP 14 cmH2O 06/14/23 15:30 Sodium 144 mmol/L (135-145) 06/17/23 04:13 Potassium 3.7 mmol/L (3.5-4.5) 06/17/23 04:13 Chloride 100 mmol/L (101-111) L 06/17/23 04:13 Carbon Dioxide 43 mmol/L (21-32) H* 06/17/23 04:13 Anion Gap 1.0 (6-13) L 06/17/23 04:13 BUN 6 mg/dL (6-20) 06/17/23 04:13 Creatinine 0.4 mg/dL (0.6-1.3) L 06/17/23 04:13 Estimated GFR (MDRD) 167 (>89) 06/17/23 04:13 Glucose 142 mg/dL (74-104) H 06/17/23 04:13 POC Whole Bld Glucose 226 mg/dL (70 - 100) H 06/18/23 11:33 Estimat Average Glucose 226 mg/dL (70-100) H 06/10/23 06:12 Hemoglobin A1c % 9.5 % (4.27-6.07) H 06/10/23 06:12 Calcium 10.1 mg/dL (8.5-10.3) 06/17/23 04:13 Phosphorus 3.3 mg/dL (2.5-5.0) 06/18/23 05:47 Magnesium 1.8 mg/dL (1.7-2.3) 06/18/23 05:47 Total Bilirubin 0.9 mg/dL (0.2-1.0) 06/09/23 09:53 AST 13 IU/L (10-42) 06/09/23 09:53 ALT 10 IU/L (10-60) 06/09/23 09:53 Alkaline Phosphatase 76 IU/L (42-121) 06/09/23 09:53 Troponin I High Sens 36.4 ng/L (2.3-14.8) H* 06/11/23 11:31 B-Natriuretic Peptide 99 pg/mL (5-100) 06/09/23 09:53 Total Protein 6.4 g/dL (6.4-8.9) 06/09/23 09:53 Albumin 3.9 g/dL (3.2-5.5) 06/09/23 09:53 Globulin 2.5 g/dL (2.1-4.2) 06/09/23 09:53 Albumin/Globulin Ratio 1.6 (1.0-2.2) 06/09/23 09:53 TSH 1.74 uIU/mL (0.34-5.60) 06/10/23 06:12 Urine Color DARK YELLOW 06/09/23 12:25 Urine Clarity CLOUDY (CLEAR) 06/09/23 12:25 Urine pH 6.0 PH (5.0-7.5) 06/09/23 12:25 Ur Specific [place] 1.025 (1.002-1.030) 06/09/23 12:25 Urine Protein TRACE mg/dL (NEGATIVE) 06/09/23 12:25 Urine Glucose (UA) 250 mg/dL (NEGATIVE) H 06/09/23 12:25 Urine Ketones NEGATIVE mg/dL (NEGATIVE) 06/09/23 12:25 Urine Occult Blood LARGE (NEGATIVE) H 06/09/23 12:25 Urine Nitrite NEGATIVE (NEGATIVE) 06/09/23 12:25 Urine Bilirubin NEGATIVE (NEGATIVE) 06/09/23 12:25 Urine Urobilinogen 0.2 (NORMAL) E.U./dL (NORMAL) 06/09/23 12:25 Ur Leukocyte Esterase NEGATIVE (NEGATIVE) 06/09/23 12:25 Urine RBC TNTC /HPF (0-5) H 06/09/23 12:25 Urine WBC 4-5 /HPF (0-5) 06/09/23 12:25 Ur Squamous Epith Cells MOD Squamous (<= Few) H 06/09/23 12:25 Urine Crystals >50 Calcium Oxalate /LPF 06/09/23 12:25 Urine Bacteria Moderate /HPF (None Seen) H 06/09/23 12:25 Urine Mucus Few Strands 06/09/23 12:25 Ur Microscopic Review INDICATED 06/09/23 12:25 Urine Culture Comments NOT INDICATED 06/09/23 12:25 Nasal Adenovirus (PCR) NOT DETECTED 06/09/23 09:50 Nasal B. parapertussis DNA (PCR) NOT DETECTED 06/09/23 09:50 Nasal Coronavir 229E PCR NOT DETECTED 06/09/23 09:50 Nasal Coronavir HKU1 PCR NOT DETECTED 06/09/23 09:50 Nasal Coronavir NL63 PCR NOT DETECTED 06/09/23 09:50 Nasal Coronavir OC43 PCR NOT DETECTED 06/09/23 09:50 Nasal Enterovir/Rhinovir PCR NOT DETECTED 06/09/23 09:50 Nasal Influenza B PCR NOT DETECTED 06/09/23 09:50 Nasal Influenza A PCR NOT DETECTED 06/09/23 09:50 Nasal Parainfluen 1 PCR NOT DETECTED 06/09/23 09:50 Nasal Parainfluen 2 PCR NOT DETECTED 06/09/23 09:50 Nasal Parainfluen 3 PCR NOT DETECTED 06/09/23 09:50 Nasal Parainfluen 4 PCR NOT DETECTED 06/09/23 09:50 Nasal RSV (PCR) NOT DETECTED 06/09/23 09:50 Nasal Screen MRSA (PCR) NEGATIVE (NEGATIVE) 06/11/23 05:00 Nasal B.pertussis DNA PCR NOT DETECTED 06/09/23 09:50 Nasal C.pneumoniae (PCR) NOT DETECTED 06/09/23 09:50 Amish Human Metapneumo PCR NOT DETECTED 06/09/23 09:50 Nasal M.pneumoniae (PCR) NOT DETECTED 06/09/23 09:50 Nasal SARS-CoV-2 (PCR) NOT DETECTED 06/09/23 09:50 Last Dose Date UNKNOWN 06/13/23 05:25 Last Dose Time UNKNOWN 06/13/23 05:25 Vancomycin Peak 43.7 ug/mL (20.0-40.0) H 06/11/23 21:00 Vancomycin Trough 21.6 ug/mL 06/13/23 05:25 Sepsis Event Note (H) - Evaluation Current Stage of Sepsis: Ruled out ABX Reporting Has patient been on IV antibiotics over the past 48 hours?: Yes Current Medications - Current Medications Current Medications: Active Medications Acetaminophen (Acetaminophen 325 Mg Tablet) 650 mg PO Q4HR PRN PRN Reason: Pain 1 to 4, or Fever Last Admin: 06/15/23 16:30 Dose: 650 mg Enoxaparin Sodium (Enoxaparin 40 Mg/0.4 Ml Syringe) 40 mg SUBQ DAILY COUNT INCLUDES THE [facility] Last Admin: 06/18/23 08:23 Dose: 40 mg Famotidine (Famotidine 20 Mg Tablet) 20 mg PO BID COUNT INCLUDES THE [facility] Last Admin: 06/18/23 21:11 Dose: 20 mg Furosemide (Furosemide 20 Mg/2 Ml Vial) 20 mg IVP BIDDIURETIC PEREZ Last Admin: 06/18/23 14:49 Dose: 20 mg Gabapentin (Gabapentin 300 Mg Capsule) 300 mg PO QPM COUNT INCLUDES THE [facility] Last Admin: 06/18/23 21:11 Dose: 300 mg Guaifenesin (Guaifenesin 600 Mg Tablet) 600 mg PO BID COUNT INCLUDES THE [facility] Last Admin: 06/18/23 21:12 Dose: 600 mg Cefepime HCl 1 gm/ Sodium (Chloride) 100 mls @ 200 mls/hr IV Q8H COUNT INCLUDES THE [facility] Stop: 06/18/23 21:59 Last Infusion: 06/18/23 15:29 Dose: Infused Insulin Glargine-yfgn (Insulin Glargine-Yfgn 300 Unit/3 Ml Pen) 20 unit SUBQ QPM COUNT INCLUDES THE [facility] Last Admin: 06/18/23 21:21 Dose: 20 unit Insulin Glargine-yfgn (Insulin Glargine-Yfgn 300 Unit/3 Ml Pen) 28 unit SUBQ DAILY COUNT INCLUDES THE [facility] Last Admin: 06/18/23 08:20 Dose: 28 unit Insulin Human Lispro (Insulin Lispro 300 Unit/3 Ml Pen) 1 - 9 unit SUBQ 0800,1200,1700,2100 COUNT INCLUDES THE [facility]; Protocol Last Admin: 06/18/23 21:20 Dose: 1 unit Magnesium Oxide (Magnesium Oxide 400 Mg Tablet) 400 mg PO DAILYWM COUNT INCLUDES THE [facility] Last Admin: 06/18/23 08:22 Dose: 400 mg Ondansetron HCl (Ondansetron 4 Mg/2 Ml Vial) 4 mg IVP Q6HR PRN PRN Reason: Nausea / Vomiting Last Admin: 06/10/23 18:08 Dose: 4 mg Sodium Chloride (Sodium Chloride Flush 0.9% 10 Ml Syringe) 10 ml IVP PRN PRN PRN Reason: NEEDED PER PROVIDER ORDERS Last Admin: 06/18/23 05:26 Dose: 10 ml Sodium Chloride (Sodium Chloride Flush 0.9% 10 Ml Syringe) 10 ml IVP 0100,0900,1700 COUNT INCLUDES THE [facility] Last Admin: 06/18/23 16:23 Dose: 10 ml Trazodone HCl (Trazodone 50 Mg Tablet) 25 mg PO QPM COUNT INCLUDES THE [facility] Last Admin: 06/18/23 21:11 Dose: 25 mg Gabapentin [Neurontin] 300 mg PO DAILY 06/09/23 Insulin Glargine,Hum.rec.anlog [Basaglar Kwikpen U-100] 52 units SUBQ HS 06/09/23 Liraglutide [Victoza 2-Pal] 1.2 mg SUBQ DAILY 06/09/23 Losartan Potassium 12.5 mg PO DAILY 06/09/23 Simvastatin [Zocor] 10 mg PO DAILY 06/09/23 Cholecalciferol [Vitamin D3] 400 unit PO DAILY 06/10/23 Tocopheryl [Vitamin E] 400 unit PO DAILY 06/10/23 Vitamin B Complex 1 each PO DAILY 06/10/23
[2023-06-18] MEDS: traZODone 50 MG TABLET PO SCH (21:11)
[2023-06-18] MEDS: GABAPENTIN 300 MG CAPSULE PO SCH (21:11)
[2023-06-18] MEDS: FAMOTIDINE 20 MG TABLET PO SCH (21:11)
--- NOTE | 2023-06-19 03:59 | PROVIDER PROGRESS NOTE ---
Carpet Layer Helper Note - Carpet Layer Helper Note Carpet Layer Helper Note: Consult Information Member Facility: [facility] Facility Visit/ Requesting Clinician: YASMANY MURPHY Patient Name: Katherin Foss Date of : 1970 Gender: Female Reason for Consult Reason for Consult: Patient Declining Clinical Note Clinical Note: per rn - "PT DESATURATION AND LETHARGIC AFTER PT GIVEN TRAZADONE AT 2109; PT ON NONREBREATHER MASK 100%; 120/59 NO TELEMETRY BUT NOTED HR ON PULSE OX VERY IRREGULAR AND DECREASED TO 25/MIN THEN INCREASED TO 60/MIN; PT DNR/DNI; COULD SHE HAVE TELEMETRY, CXR AND ABG?" unable to reach rn via phone check abg, cxr, tele now
[2023-06-19 04:14] LABS: ABG BASE EXCESS 12.4 mmol/L (-2.0-3.0); ABG HCO3 42.1 mmol/L (22.0-26.0); ABG OXYGEN SATURATION 92 % (94-98); ABG PO2 70 mmHg (80-100)
[2023-06-19 04:17] LABS: ABG PCO2 87 mmHg (34-45); ABG TCO2 44.8 MMOL/L (21.0-29.0); ALLEN TEST POSITIVE
[2023-06-19 05:53] LABS: BASOPHILS # (AUTO) 0.1 10^3/uL (0.0-0.1); EOSINOPHILS # (AUTO) 0.1 10^3/uL (0.0-0.7); EOSINOPHILS % (AUTO) 2.3 %; HCT - HEMATOCRIT 39.9 % (37.0-47.0); HGB - HEMOGLOBIN 11.2 g/dL (12.0-16.0); LYMPHOCYTES # (AUTO) 1.3 10^3/uL (1.5-3.5); LYMPHOCYTES % (AUTO) 25.2 %; MEAN CORPUSCULAR HEMOGLOBIN 25.5 pg (27.0-31.0); MEAN CORPUSCULAR HGB CONC 28.1 g/dL (32.0-36.0); MEAN CORPUSCULAR VOLUME 90.7 fL (81.0-99.0); MEAN PLATELET VOLUME 9.6 fL (7.9-10.8); MONOCYTES # (AUTO) 0.6 10^3/uL (0.0-1.0); NEUTROPHILS # (AUTO) 3.1 10^3/uL (1.5-6.6); NEUTROPHILS % (AUTO) 60.1 %; PLT - PLATELET COUNT 156 10^3/uL (130-450); RED CELL DISTRIBUTION WIDTH 15.7 % (12.0-15.0); WHITE BLOOD COUNT 5.2 x10^3/uL (4.8-10.8)
[2023-06-19] MEDS: FUROSEMIDE 20 MG/2 ML VIAL IVP SCH ×2 (06:00→14:00)
[2023-06-19 06:17] LABS: BUN - BLOOD UREA NITROGEN 9 mg/dL (6-20); CALCIUM 10.3 mg/dL (8.5-10.3); CARBON DIOXIDE - CO2 > 45 mmol/L (21-32); CHLORIDE 97 mmol/L (101-111); CREATININE 0.5 mg/dL (0.6-1.3); GFR - MDRD 129 (>89); GLUCOSE 135 mg/dL (74-104); POTASSIUM 3.5 mmol/L (3.5-4.5); SODIUM 145 mmol/L (135-145)
--- NOTE | 2023-06-19 07:32 | PROVIDER PROGRESS NOTE ---
Assessment/Plan - Problem List (1) Acute respiratory failure with hypoxia and hypercarbia Assessment/Plan: Patient is not compliant of using her oxygen, she has poor insight of her condition. She cannot become hypercapnic easily at night, it is very difficult to keep her oxygen mask in place. Patient completed her antibiotics treatment courseOn 06/18/2023. She still need about 10 to 15 L of oxygen to maintain SaO2 over 92%. Palliative care consult has started investigating on the case. (2) CO2 narcosis Assessment/Plan: worsening paCO2 82 overnight, patient is not compliant with BiPAP use, or oxymask use Due to her genetic condition myotonic muscular dystrophy. Encourage Incentive [facility] Goal of care discussion (4) Pulmonary edema Assessment/Plan: Appears Euvolemic Continue monitoring volume status (5) New onset a-fib Assessment/Plan: Still in A-fib, rate controlled Not on anticoagulant (6) DM type 2 (diabetes mellitus, type 2) Assessment/Plan: Continue monitoring blood sugar, give diabetes diet - Current Meds Current Meds: Current Medications Generic Name Dose Route Start Last Admin Trade Name Freq PRN Reason Stop Dose Admin Acetaminophen 650 mg 06/09/23 13:50 06/15/23 16:30 Acetaminophen 325 Mg Tablet PO 650 mg Q4HR PRN Administration Pain 1 to 4, or Fever Enoxaparin Sodium 40 mg 06/10/23 09:00 06/18/23 08:23 Enoxaparin 40 Mg/0.4 Ml Syringe SUBQ 40 mg DAILY PEREZ Administration Famotidine 20 mg 06/18/23 21:00 06/18/23 21:11 Famotidine 20 Mg Tablet PO 20 mg BID PEREZ Administration Furosemide 20 mg 06/10/23 06:00 06/18/23 14:49 Furosemide 20 Mg/2 Ml Vial IVP 20 mg BIDDIURETIC PEREZ Administration Gabapentin 300 mg 06/15/23 02:25 06/18/23 21:11 Gabapentin 300 Mg Capsule PO 300 mg QPM PEREZ Administration Guaifenesin 600 mg 06/12/23 14:00 06/18/23 21:12 Guaifenesin 600 Mg Tablet PO 600 mg BID PEREZ Administration Insulin Glargine-yfgn 20 unit 06/15/23 21:00 06/18/23 21:21 Insulin Glargine-Yfgn 300 Unit/3 Ml Pen SUBQ 20 unit QPM PEREZ Administration Insulin Glargine-yfgn 28 unit 06/16/23 09:00 06/18/23 08:20 Insulin Glargine-Yfgn 300 Unit/3 Ml Pen SUBQ 28 unit DAILY PEREZ Administration Insulin Human Lispro 1 - 9 unit 06/10/23 17:21 06/18/23 21:20 Insulin Lispro 300 Unit/3 Ml Pen SUBQ 1 unit 0800,1200,1700,2100 PEREZ Administration Protocol Magnesium Oxide 400 mg 06/17/23 09:00 06/18/23 08:22 Magnesium Oxide 400 Mg Tablet PO 400 mg DAILYWM PEREZ Administration Ondansetron HCl 4 mg 06/09/23 13:50 06/10/23 18:08 Ondansetron 4 Mg/2 Ml Vial IVP 4 mg Q6HR PRN Administration Nausea / Vomiting Sodium Chloride 10 ml 06/09/23 13:50 06/18/23 05:26 Sodium Chloride Flush 0.9% 10 Ml Syringe IVP 10 ml PRN PRN Administration NEEDED PER PROVIDER ORDERS Sodium Chloride 10 ml 06/09/23 17:00 06/18/23 23:44 Sodium Chloride Flush 0.9% 10 Ml Syringe IVP 10 ml 0100,0900,1700 PEREZ Administration Trazodone HCl 25 mg 06/16/23 21:00 06/18/23 21:11 Trazodone 50 Mg Tablet PO 25 mg QPM PEREZ Administration - Lab Result Fish Bone Diagrams: 06/19/23 05:14 06/19/23 05:14 - Additional Planning My Orders: My Active Orders 06/18/23 21:00 Famotidine [Pepcid] 20 mg PO BID 06/19/23 Palliative Care Consult [CONS] Routine 06/20/23 05:00 BMP - BASIC METABOLIC PANEL [CHEM] DAILYLAB CBC [CBC - COMP BLD CT W/AUTO DIFF] [HEME] DAILYLAB 06/21/23 05:00 BMP - BASIC METABOLIC PANEL [CHEM] DAILYLAB CBC [CBC - COMP BLD CT W/AUTO DIFF] [HEME] DAILYLAB 06/22/23 05:00 BMP - BASIC METABOLIC PANEL [CHEM] DAILYLAB CBC [CBC - COMP BLD CT W/AUTO DIFF] [HEME] DAILYLAB 06/23/23 05:00 BMP - BASIC METABOLIC PANEL [CHEM] DAILYLAB CBC [CBC - COMP BLD CT W/AUTO DIFF] [HEME] DAILYLAB Subjective - Subjective Patient Reports: Fatigue, Other (still wants to go home. Reports running nose, does not want ot have Oxygen treatment) Nursing Reports: Other (noncompliance, desaturation when the oxymaske is removed by patient) Objective Vital Signs: Vital Signs - 24 hr 06/18/23 06/18/23 06/18/23 08:00 16:00 19:00 Temperature 36.5 C 36.9 C Heart Rate [ Brachial] Heart Rate [ 56 L 86 Monitoring electrodes] Respiratory 18 19 Rate Blood Pressure 93/57 L 108/59 L [Right Brachial artery] O2 Saturation 92 94 If not protocol 11 10 5 : Oxygen Flow, liters/minute 06/18/23 06/18/23 06/19/23 19:02 23:47 01:00 Temperature 37 C Heart Rate [ Brachial] Heart Rate [ 99 Monitoring electrodes] Respiratory 22 20 12 Rate Blood Pressure 106/53 L [Right Brachial artery] O2 Saturation 95 91 L 82 L If not protocol 5 7 8 : Oxygen Flow, liters/minute 06/19/23 06/19/23 06/19/23 01:05 02:41 03:00 Temperature Heart Rate [ Brachial] Heart Rate [ 92 Monitoring electrodes] Respiratory 16 Rate Blood Pressure [Right Brachial artery] O2 Saturation 92 91 L 84 L If not protocol 10 10 15 : Oxygen Flow, liters/minute 06/19/23 06/19/23 06/19/23 04:00 05:30 06:45 Temperature Heart Rate [ Brachial] Heart Rate [ Monitoring electrodes] Respiratory Rate Blood Pressure [Right Brachial artery] O2 Saturation 96 94 If not protocol 15 15 15 : Oxygen Flow, liters/minute 06/19/23 07:25 Temperature 36.6 C Heart Rate [ 108 H Brachial] Heart Rate [ Monitoring electrodes] Respiratory 20 Rate Blood Pressure 109/65 [Right Brachial artery] O2 Saturation 92 If not protocol 15 : Oxygen Flow, liters/minute Oxygen O2 Source Oxymask I&O (Last 24 Hrs): Intake and Output Totals x24h 06/17/23 06/18/23 06/19/23 23:59 23:59 23:59 Intake Total 1230 1550 Output Total 1025 1700 350 Balance 205 -150 -350 General: Alert, Mild distress HEENT: PERRLA, EOMI Neck: Supple, No JVD Neuro: Other (tired appearance,) Cardiovascular: Other (irrgular HR) Respiratory: No respiratory distress Abdomen: Soft, No tenderness Extremities: No clubbing - Results Results: Laboratory Results WBC 5.2 x10^3/uL (4.8-10.8) 06/19/23 05:14 RBC 4.40 10^6/uL (4.20-5.40) 06/19/23 05:14 Hgb 11.2 g/dL (12.0-16.0) L 06/19/23 05:14 Hct 39.9 % (37.0-47.0) 06/19/23 05:14 MCV 90.7 fL (81.0-99.0) 06/19/23 05:14 MCH 25.5 pg (27.0-31.0) L 06/19/23 05:14 MCHC 28.1 g/dL (32.0-36.0) L 06/19/23 05:14 RDW 15.7 % (12.0-15.0) H 06/19/23 05:14 Plt Count 156 10^3/uL (130-450) 06/19/23 05:14 MPV 9.6 fL (7.9-10.8) 06/19/23 05:14 Neut # (Auto) 3.1 10^3/uL (1.5-6.6) 06/19/23 05:14 Lymph # (Auto) 1.3 10^3/uL (1.5-3.5) L 06/19/23 05:14 [place] # (Auto) 0.6 10^3/uL (0.0-1.0) 06/19/23 05:14 Eos # (Auto) 0.1 10^3/uL (0.0-0.7) 06/19/23 05:14 Baso # (Auto) 0.1 10^3/uL (0.0-0.1) 06/19/23 05:14 Absolute Nucleated RBC 0.00 x10^3/uL 06/19/23 05:14 Nucleated RBC % 0.0 /100WBC 06/19/23 05:14 Manual Slide Review Indicated 06/13/23 05:25 WBC Morphology NORMAL APPEARANCE (NORMAL) 06/13/23 05:25 Platelet Estimate NORMAL (130-450,000) (NORMAL) 06/13/23 05:25 Platelet Morphology NORMAL APPEARANCE (NORMAL) 06/13/23 05:25 RBC Morph Micro Appear 1+ ANISOCYTOSIS (NORMAL) 1+ STOMATOCYTES (NORMAL) 1+ HYPOCHROMASIA (NORMAL) 06/13/23 05:25 RBC Morph Micro Appear 1+ ANISOCYTOSIS (NORMAL) 1+ STOMATOCYTES (NORMAL) 1+ H YPOCHROMASIA (NORMAL) 06/13/23 05:25 RBC Morph Micro Appear 1+ ANISOCYTOSIS (NORMAL) 1+ STOMATOCYTES (NORMAL) 1+ HYPOCHROMASIA (NORMAL) 06/13/23 05:25 Bld Gas Analysis Time 0415 06/19/23 04:05 Sample Site RIGHT RADIAL 06/19/23 04:05 ABG pH 7.30 (7.35-7.45) L 06/19/23 04:05 ABG pCO2 87 mmHg (34-45) H* 06/19/23 04:05 ABG pO2 70 mmHg (80-100) L 06/19/23 04:05 ABG HCO3 42.1 mmol/L (22.0-26.0) H 06/19/23 04:05 ABG Total CO2 44.8 MMOL/L (21.0-29.0) H* 06/19/23 04:05 ABG O2 Saturation 92 % (94-98) L 06/19/23 04:05 ABG Base Excess 12.4 mmol/L (-2.0-3.0) H 06/19/23 04:05 [place] Test POSITIVE 06/19/23 04:05 VBG pH 7.348 (7.31-7.41) 06/18/23 05:47 Ionized Calcium 1.29 mmol/L (1.15-1.33) 06/18/23 05:47 Respiration Rate 16 b/min 06/14/23 15:30 O2 Delivery Device NON REBREATHER MASK 06/19/23 04:05 O2 Liters/Min 15.00 LPM 06/19/23 04:05 Vent Mode SYNCHRONOUS/TIMES 06/14/23 15:30 FiO2 50.00 06/14/23 15:30 EPAP 6 cmH2O 06/14/23 15:30 IPAP 14 cmH2O 06/14/23 15:30 Sodium 145 mmol/L (135-145) 06/19/23 05:14 Potassium 3.5 mmol/L (3.5-4.5) 06/19/23 05:14 Chloride 97 mmol/L (101-111) L 06/19/23 05:14 Carbon Dioxide > 45 mmol/L (21-32) H* 06/19/23 05:14 Anion Gap TNP 06/19/23 05:14 BUN 9 mg/dL (6-20) 06/19/23 05:14 Creatinine 0.5 mg/dL (0.6-1.3) L 06/19/23 05:14 Estimated GFR (MDRD) 129 (>89) 06/19/23 05:14 Glucose 135 mg/dL (74-104) H 06/19/23 05:14 POC Whole Bld Glucose 117 mg/dL (70 - 100) H 06/19/23 07:21 Estimat Average Glucose 226 mg/dL (70-100) H 06/10/23 06:12 Hemoglobin A1c % 9.5 % (4.27-6.07) H 06/10/23 06:12 Calcium 10.3 mg/dL (8.5-10.3) 06/19/23 05:14 Phosphorus 3.3 mg/dL (2.5-5.0) 06/18/23 05:47 Magnesium 1.8 mg/dL (1.7-2.3) 06/18/23 05:47 Total Bilirubin 0.9 mg/dL (0.2-1.0) 06/09/23 09:53 AST 13 IU/L (10-42) 06/09/23 09:53 ALT 10 IU/L (10-60) 06/09/23 09:53 Alkaline Phosphatase 76 IU/L (42-121) 06/09/23 09:53 Troponin I High Sens 36.4 ng/L (2.3-14.8) H* 06/11/23 11:31 B-Natriuretic Peptide 99 pg/mL (5-100) 06/09/23 09:53 Total Protein 6.4 g/dL (6.4-8.9) 06/09/23 09:53 Albumin 3.9 g/dL (3.2-5.5) 06/09/23 09:53 Globulin 2.5 g/dL (2.1-4.2) 06/09/23 09:53 Albumin/Globulin Ratio 1.6 (1.0-2.2) 06/09/23 09:53 TSH 1.74 uIU/mL (0.34-5.60) 06/10/23 06:12 Urine Color DARK YELLOW 06/09/23 12:25 Urine Clarity CLOUDY (CLEAR) 06/09/23 12:25 Urine pH 6.0 PH (5.0-7.5) 06/09/23 12:25 Ur Specific [place] 1.025 (1.002-1.030) 06/09/23 12:25 Urine Protein TRACE mg/dL (NEGATIVE) 06/09/23 12:25 Urine Glucose (UA) 250 mg/dL (NEGATIVE) H 06/09/23 12:25 Urine Ketones NEGATIVE mg/dL (NEGATIVE) 06/09/23 12:25 Urine Occult Blood LARGE (NEGATIVE) H 06/09/23 12:25 Urine Nitrite NEGATIVE (NEGATIVE) 06/09/23 12:25 Urine Bilirubin NEGATIVE (NEGATIVE) 06/09/23 12:25 Urine Urobilinogen 0.2 (NORMAL) E.U./dL (NORMAL) 06/09/23 12:25 Ur Leukocyte Esterase NEGATIVE (NEGATIVE) 06/09/23 12:25 Urine RBC TNTC /HPF (0-5) H 06/09/23 12:25 Urine WBC 4-5 /HPF (0-5) 06/09/23 12:25 Ur Squamous Epith Cells MOD Squamous (<= Few) H 06/09/23 12:25 Urine Crystals >50 Calcium Oxalate /LPF 06/09/23 12:25 Urine Bacteria Moderate /HPF (None Seen) H 06/09/23 12:25 Urine Mucus Few Strands 06/09/23 12:25 Ur Microscopic Review INDICATED 06/09/23 12:25 Urine Culture Comments NOT INDICATED 06/09/23 12:25 Nasal Adenovirus (PCR) NOT DETECTED 06/09/23 09:50 Nasal B. parapertussis DNA (PCR) NOT DETECTED 06/09/23 09:50 Nasal Coronavir 229E PCR NOT DETECTED 06/09/23 09:50 Nasal Coronavir HKU1 PCR NOT DETECTED 06/09/23 09:50 Nasal Coronavir NL63 PCR NOT DETECTED 06/09/23 09:50 Nasal Coronavir OC43 PCR NOT DETECTED 06/09/23 09:50 Nasal Enterovir/Rhinovir PCR NOT DETECTED 06/09/23 09:50 Nasal Influenza B PCR NOT DETECTED 06/09/23 09:50 Nasal Influenza A PCR NOT DETECTED 06/09/23 09:50 Nasal Parainfluen 1 PCR NOT DETECTED 06/09/23 09:50 Nasal Parainfluen 2 PCR NOT DETECTED 06/09/23 09:50 Nasal Parainfluen 3 PCR NOT DETECTED 06/09/23 09:50 Nasal Parainfluen 4 PCR NOT DETECTED 06/09/23 09:50 Nasal RSV (PCR) NOT DETECTED 06/09/23 09:50 Nasal Screen MRSA (PCR) NEGATIVE (NEGATIVE) 06/11/23 05:00 Nasal B.pertussis DNA PCR NOT DETECTED 06/09/23 09:50 Nasal C.pneumoniae (PCR) NOT DETECTED 06/09/23 09:50 Amish Human Metapneumo PCR NOT DETECTED 06/09/23 09:50 Nasal M.pneumoniae (PCR) NOT DETECTED 06/09/23 09:50 Nasal SARS-CoV-2 (PCR) NOT DETECTED 06/09/23 09:50 Last Dose Date UNKNOWN 06/13/23 05:25 Last Dose Time UNKNOWN 06/13/23 05:25 Vancomycin Peak 43.7 ug/mL (20.0-40.0) H 06/11/23 21:00 Vancomycin Trough 21.6 ug/mL 06/13/23 05:25 Sepsis Event Note (H) - Evaluation Current Stage of Sepsis: Ruled out ABX Reporting Has patient been on IV antibiotics over the past 48 hours?: Yes Current Medications - Current Medications Current Medications: Active Medications Acetaminophen (Acetaminophen 325 Mg Tablet) 650 mg PO Q4HR PRN PRN Reason: Pain 1 to 4, or Fever Last Admin: 06/15/23 16:30 Dose: 650 mg Enoxaparin Sodium (Enoxaparin 40 Mg/0.4 Ml Syringe) 40 mg SUBQ DAILY [facility] Last Admin: 06/19/23 08:28 Dose: 40 mg Famotidine (Famotidine 20 Mg Tablet) 20 mg PO BID [facility] Last Admin: 06/19/23 08:28 Dose: 20 mg Gabapentin (Gabapentin 300 Mg Capsule) 300 mg PO QPM [facility] Last Admin: 06/18/23 21:11 Dose: 300 mg Guaifenesin (Guaifenesin 600 Mg Tablet) 600 mg PO BID [facility] Last Admin: 06/19/23 08:28 Dose: 600 mg Insulin Glargine-yfgn (Insulin Glargine-Yfgn 300 Unit/3 Ml Pen) 20 unit SUBQ QPM [facility] Last Admin: 06/18/23 21:21 Dose: 20 unit Insulin Glargine-yfgn (Insulin Glargine-Yfgn 300 Unit/3 Ml Pen) 28 unit SUBQ DAILY [facility] Last Admin: 06/19/23 08:29 Dose: 28 unit Insulin Human Lispro (Insulin Lispro 300 Unit/3 Ml Pen) 1 - 9 unit SUBQ 0800,1200,1700,2100 [facility]; Protocol Last Admin: 06/19/23 11:36 Dose: 3 unit Magnesium Oxide (Magnesium Oxide 400 Mg Tablet) 400 mg PO DAILYWM [facility] Last Admin: 06/19/23 08:28 Dose: 400 mg Metoprolol Tartrate (Metoprolol Tartrate 25 Mg Tablet) 25 mg PO BID [facility] Ondansetron HCl (Ondansetron 4 Mg/2 Ml Vial) 4 mg IVP Q6HR PRN PRN Reason: Nausea / Vomiting Last Admin: 06/10/23 18:08 Dose: 4 mg Sodium Chloride (Sodium Chloride Flush 0.9% 10 Ml Syringe) 10 ml IVP PRN PRN PRN Reason: NEEDED PER PROVIDER ORDERS Last Admin: 06/18/23 05:26 Dose: 10 ml Sodium Chloride (Sodium Chloride Flush 0.9% 10 Ml Syringe) 10 ml IVP 0100,0900,1700 [facility] Last Admin: 06/19/23 08:39 Dose: 10 ml Trazodone HCl (Trazodone 50 Mg Tablet) 25 mg PO QPM [facility] Last Admin: 06/18/23 21:11 Dose: 25 mg Gabapentin [Neurontin] 300 mg PO DAILY 06/09/23 Insulin Glargine,Hum.rec.anlog [Basaglar Kwikpen U-100] 52 units SUBQ HS Liraglutide [Victoza 2-Pal] 1.2 mg SUBQ DAILY 06/09/23 Losartan Potassium 12.5 mg PO DAILY 06/09/23 Simvastatin [Zocor] 10 mg PO DAILY 06/09/23 Cholecalciferol [Vitamin D3] 400 unit PO DAILY 06/10/23 Tocopheryl [Vitamin E] 400 unit PO DAILY 06/10/23 Vitamin B Complex 1 each PO DAILY 06/10/23
--- NOTE | 2023-06-19 08:13 | XRAY Report ---
PROCEDURE: Chest 1 View X-Ray INDICATIONS: sob TECHNIQUE: One view of the chest was acquired. COMPARISON: 06/14/2023 FINDINGS: Surgical changes and devices: None. Lungs and pleura: Small pleural effusions. Left greater than right bibasilar airspace opacities. Rodrigo ticular airspace opacity in the left middle lung zone. Mediastinum: Mediastinal contours appear normal. Heart size is normal. Bones and chest wall: No suspicious bony lesions. Overlying soft tissues appear unremarkable. IMPRESSION: Developing opacity in the left middle lung zone, could represent atelectasis, infection or less likel y aspiration. Stable small pleural effusions with bibasilar atelectasis/consolidation. Reviewed by: Santiago Urrutia on 06/19/2023 8:12 AM PDT Approved by: Santiago Urrutia on 06/19/2023 8:12 AM PDT Station ID: [id number]
[2023-06-19] MEDS: ENOXAPARIN 40 MG/0.4 ML SYRINGE SUBQ SCH (08:28)
[2023-06-19] MEDS: FAMOTIDINE 20 MG TABLET PO SCH ×2 (08:28→21:08)
[2023-06-19] MEDS: guaiFENesin 600 MG TABLET PO SCH ×2 (08:28→20:50)
[2023-06-19] MEDS: MAGNESIUM OXIDE 400 MG TABLET PO SCH (08:28)
[2023-06-19] MEDS: INSULIN GLARGINE-YFGN 300 UNIT/3 ML PEN SUBQ SCH ×2 (08:29→20:46)
[2023-06-19] MEDS: INSULIN LISPRO 300 UNIT/3 ML PEN SUBQ SCH ×4 (08:30→20:47)
[2023-06-19] MEDS: SODIUM CHLORIDE FLUSH 0.9% 10 ML SYRINGE IVP SCH ×2 (08:39→17:22)
[2023-06-19] MEDS: GABAPENTIN 300 MG CAPSULE PO SCH (20:49)
[2023-06-19] MEDS: METOPROLOL TARTRATE 25 MG TABLET PO SCH (21:04)
[2023-06-19] MEDS: traZODone 50 MG TABLET PO SCH (21:11)
[2023-06-19] MEDS: ACETAMINOPHEN 325 MG TABLET PO PRN (22:47)
[2023-06-20] MEDS: SODIUM CHLORIDE FLUSH 0.9% 10 ML SYRINGE IVP SCH ×3 (00:30→17:40)
[2023-06-20 06:12] LABS: BASOPHILS # (AUTO) 0.1 10^3/uL (0.0-0.1); EOSINOPHILS # (AUTO) 0.2 10^3/uL (0.0-0.7); EOSINOPHILS % (AUTO) 2.2 %; HCT - HEMATOCRIT 42.8 % (37.0-47.0); HGB - HEMOGLOBIN 11.8 g/dL (12.0-16.0); LYMPHOCYTES # (AUTO) 2.4 10^3/uL (1.5-3.5); LYMPHOCYTES % (AUTO) 35.7 %; MEAN CORPUSCULAR HEMOGLOBIN 25.2 pg (27.0-31.0); MEAN CORPUSCULAR HGB CONC 27.6 g/dL (32.0-36.0); MEAN CORPUSCULAR VOLUME 91.3 fL (81.0-99.0); MEAN PLATELET VOLUME 10.2 fL (7.9-10.8); MONOCYTES # (AUTO) 1.1 10^3/uL (0.0-1.0); MONOCYTES % (AUTO) 16.8 %; PLT - PLATELET COUNT 187 10^3/uL (130-450); RED BLOOD COUNT 4.69 10^6/uL (4.20-5.40); RED CELL DISTRIBUTION WIDTH 15.7 % (12.0-15.0); WHITE BLOOD COUNT 6.7 x10^3/uL (4.8-10.8)
[2023-06-20 06:46] LABS: BUN - BLOOD UREA NITROGEN 8 mg/dL (6-20); CALCIUM 10.5 mg/dL (8.5-10.3); CARBON DIOXIDE - CO2 > 45 mmol/L (21-32); CHLORIDE 95 mmol/L (101-111); CREATININE 0.4 mg/dL (0.6-1.3); GFR - MDRD 167 (>89); GLUCOSE 136 mg/dL (74-104); POTASSIUM 3.6 mmol/L (3.5-4.5); SODIUM 143 mmol/L (135-145)
--- NOTE | 2023-06-20 08:18 | PROVIDER PROGRESS NOTE ---
Assessment/Plan - Problem List (1) Acute respiratory failure with hypoxia and hypercarbia Assessment/Plan: Patient condition fluctuated, get better when she is fully awake and cooperative with oxygen use. Gets worse when she pulling her oxygen off, she can desaturated to 60s 70s and turning blue She will recover fairly quickly after oxygen being put on. She is very lethargic in the laundry aide, likely is from the bicarb building up in her system. Soft restraint had to placed on her to make sure her oxygen is on properly Goal of care discussion will be performed once patient mother comes to visit (2) CO2 narcosis Assessment/Plan: Worsening at night, has to avoid sedated or opioid medicine (3) Myotonic dystrophy Assessment/Plan: Worsening, Patient does not have a good insight on the severity of her condition Palliative care consult will discuss with patient on Thursday (4) Pulmonary edema Assessment/Plan: Appears euvolemic No indication for further diuretics use (5) New onset a-fib Assessment/Plan: Still in A-fib, rate controlled Telemetry monitoring for high risk of critical ventricular arrhythmia (6) DM type 2 (diabetes mellitus, type 2) Assessment/Plan: Blood sugar in the 1 50-200 range Continue with insulin sliding scales - Current Meds Current Meds: Current Medications Generic Name Dose Route Start Last Admin Trade Name Freq PRN Reason Stop Dose Admin Acetaminophen 650 mg 06/09/23 13:50 06/19/23 22:47 Acetaminophen 325 Mg Tablet PO 650 mg Q4HR PRN Administration Pain 1 to 4, or Fever Enoxaparin Sodium 40 mg 06/10/23 09:00 06/19/23 08:28 Enoxaparin 40 Mg/0.4 Ml Syringe SUBQ 40 mg DAILY PEREZ Administration Famotidine 20 mg 06/18/23 21:00 06/19/23 21:08 Famotidine 20 Mg Tablet PO 20 mg BID PEREZ Administration Gabapentin 300 mg 06/15/23 02:25 06/19/23 20:49 Gabapentin 300 Mg Capsule PO 300 mg QPM PEREZ Administration Guaifenesin 600 mg 06/12/23 14:00 06/19/23 20:50 Guaifenesin 600 Mg Tablet PO Not Given BID PEREZ Insulin Glargine-yfgn 20 unit 06/15/23 21:00 06/19/23 20:46 Insulin Glargine-Yfgn 300 Unit/3 Ml Pen SUBQ 20 unit QPM PEREZ Administration Insulin Human Lispro 1 - 9 unit 06/10/23 17:21 06/19/23 20:47 Insulin Lispro 300 Unit/3 Ml Pen SUBQ 3 unit 0800,1200,1700,2100 PEREZ Administration Protocol Magnesium Oxide 400 mg 06/17/23 09:00 06/19/23 08:28 Magnesium Oxide 400 Mg Tablet PO 400 mg DAILYWM PEREZ Administration Metoprolol Tartrate 25 mg 06/19/23 21:00 06/19/23 21:04 Metoprolol Tartrate 25 Mg Tablet PO 25 mg BID PEREZ Administration Ondansetron HCl 4 mg 06/09/23 13:50 06/10/23 18:08 Ondansetron 4 Mg/2 Ml Vial IVP 4 mg Q6HR PRN Administration Nausea / Vomiting Sodium Chloride 10 ml 06/09/23 13:50 06/18/23 05:26 Sodium Chloride Flush 0.9% 10 Ml Syringe IVP 10 ml PRN PRN Administration NEEDED PER PROVIDER ORDERS Sodium Chloride 10 ml 06/09/23 17:00 06/20/23 00:30 Sodium Chloride Flush 0.9% 10 Ml Syringe IVP 10 ml 0100,0900,1700 PEREZ Administration Trazodone HCl 25 mg 06/16/23 21:00 06/19/23 21:11 Trazodone 50 Mg Tablet PO Not Given QPM PEREZ - Lab Result Fish Bone Diagrams: 06/20/23 06:06 06/20/23 06:06 - Diagnostic Imaging Results Diagnostic Imaging Results: Final report reviewed - Additional Planning Condition/Complexity: Unstable My Orders: My Active Orders 06/19/23 21:00 Metoprolol Tartrate [Lopressor] 25 mg PO BID 06/20/23 Hospice Referral (Coordinate Admission by Hospice Office Staff) [CONS] Routine 06/20/23 08:15 NonViolent Restraint(s) Q24H 06/21/23 05:00 BMP - BASIC METABOLIC PANEL [CHEM] DAILYLAB CBC [CBC - COMP BLD CT W/AUTO DIFF] [HEME] DAILYLAB 06/21/23 09:00 BNP - B-NATRIURETIC PEPTIDE [CHEM] DAILY 06/22/23 05:00 BMP - BASIC METABOLIC PANEL [CHEM] DAILYLAB CBC [CBC - COMP BLD CT W/AUTO DIFF] [HEME] DAILYLAB 06/22/23 09:00 BNP - B-NATRIURETIC PEPTIDE [CHEM] DAILY 06/23/23 05:00 BMP - BASIC METABOLIC PANEL [CHEM] DAILYLAB CBC [CBC - COMP BLD CT W/AUTO DIFF] [HEME] DAILYLAB 06/23/23 09:00 BNP - B-NATRIURETIC PEPTIDE [CHEM] DAILY 06/24/23 09:00 BNP - B-NATRIURETIC PEPTIDE [CHEM] DAILY Time Spent: 31-60 minutes Subjective - Subjective Patient Reports: Shortness of Breath, Other (Patient is agitated, keeps removing her Ventimask from her face. She turns blue with hypoxia of 60s to 70s Educated patient on how important it is to compliant with using oxygen) Objective Vital Signs: Vital Signs - 24 hr 06/19/23 06/19/23 06/19/23 16:00 20:00 21:04 Temperature 36.9 C Heart Rate [ 67 Brachial] Heart Rate [ Monitoring electrodes] Respiratory 20 Rate Blood Pressure 113/54 L Blood Pressure [Left Brachial artery] Blood Pressure 109/64 [Right Brachial artery] O2 Saturation 94 95 If not protocol 7 4 : Oxygen Flow, liters/minute 06/19/23 06/20/23 06/20/23 22:30 00:40 02:45 Temperature 36.4 C L Heart Rate [ Brachial] Heart Rate [ 82 Monitoring electrodes] Respiratory 21 20 Rate Blood Pressure Blood Pressure 103/54 L [Left Brachial artery] Blood Pressure [Right Brachial artery] O2 Saturation 93 93 If not protocol 6 4 5 : Oxygen Flow, liters/minute 06/20/23 06/20/23 06/20/23 04:15 06:06 07:27 Temperature 37.0 C 36.8 C Heart Rate [ 85 Brachial] Heart Rate [ 80 Monitoring electrodes] Respiratory 20 18 18 Rate Blood Pressure Blood Pressure [Left Brachial artery] Blood Pressure 103/50 L 110/62 [Right Brachial artery] O2 Saturation 92 93 92 If not protocol 6 6 6 : Oxygen Flow, liters/minute 06/20/23 07:30 Temperature Heart Rate [ Brachial] Heart Rate [ Monitoring electrodes] Respiratory Rate Blood Pressure Blood Pressure [Left Brachial artery] Blood Pressure [Right Brachial artery] O2 Saturation If not protocol 6 : Oxygen Flow, liters/minute Oxygen O2 Source Oxymask I&O (Last 24 Hrs): Intake and Output Totals x24h 06/18/23 06/19/2323 23:59 23:59 23:59 Intake Total 1550 940 Output Total 0080 0888 400 Balance -150 -935 -400 General: Alert, Oriented x3, Other (Not cooperative) HEENT: PERRLA, EOMI Neck: Supple, No JVD Neuro: Alert, Non Focal Cardiovascular: Other (Irregular rhythm) Respiratory: Chest non-tender, Other (No wheezing no rales or rhonchi's) Abdomen: Soft, No tenderness Extremities: No clubbing, No edema - Results Results: Laboratory Results WBC 6.7 x10^3/uL (4.8-10.8) 06/20/23 06:06 RBC 4.69 10^6/uL (4.20-5.40) 06/20/23 06:06 Hgb 11.8 g/dL (12.0-16.0) L 06/20/23 06:06 Hct 42.8 % (37.0-47.0) 06/20/23 06:06 MCV 91.3 fL (81.0-99.0) 06/20/23 06:06 MCH 25.2 pg (27.0-31.0) L 06/20/23 06:06 MCHC 27.6 g/dL (32.0-36.0) L 06/20/23 06:06 RDW 15.7 % (12.0-15.0) H 06/20/23 06:06 Plt Count 187 10^3/uL (130-450) 06/20/23 06:06 MPV 10.2 fL (7.9-10.8) 06/20/23 06:06 Neut # (Auto) 3.0 10^3/uL (1.5-6.6) 06/20/23 06:06 Lymph # (Auto) 2.4 10^3/uL (1.5-3.5) 06/20/23 06:06 [place] # (Auto) 1.1 10^3/uL (0.0-1.0) H 06/20/23 06:06 Eos # (Auto) 0.2 10^3/uL (0.0-0.7) 06/20/23 06:06 Baso # (Auto) 0.1 10^3/uL (0.0-0.1) 06/20/23 06:06 Absolute Nucleated RBC 0.00 x10^3/uL 06/20/23 06:06 Nucleated RBC % 0.0 /100WBC 06/20/23 06:06 Manual Slide Review Indicated 06/13/23 05:25 WBC Morphology NORMAL APPEARANCE (NORMAL) 06/13/23 05:25 Platelet Estimate NORMAL (130-450,000) (NORMAL) 06/13/23 05:25 Platelet Morphology NORMAL APPEARANCE (NORMAL) 06/13/23 05:25 RBC Morph Micro Appear 1+ ANISOCYTOSIS (NORMAL) 1+ STOMATOCYTES (NORMAL) 1+ HYPOCHROMASIA (NORMAL) 06/13/23 05:25 RBC Morph Micro Appear 1+ ANISOCYTOSIS (NORMAL) 1+ STOMATOCYTES (NORMAL) 1+ HYPOCHROMASIA (NORMAL) 06/13/23 05:25 RBC Morph Micro Appear 1+ ANISOCYTOSIS (NORMAL) 1+ STOMATOCYTES (NORMAL) 1+ HYPOCHROMASIA (NORMAL) 06/13/23 05:25 Bld Gas Analysis Time 0415 06/19/23 04:05 Sample Site RIGHT RADIAL 06/19/23 04:05 ABG pH 7.30 (7.35-7.45) L 06/19/23 04:05 ABG pCO2 87 mmHg (34-45) H* 06/19/23 04:05 ABG pO2 70 mmHg (80-100) L 06/19/23 04:05 ABG HCO3 42.1 mmol/L (22.0-26.0) H 06/19/23 04:05 ABG Total CO2 44.8 MMOL/L (21.0-29.0) H* 06/19/23 04:05 ABG O2 Saturation 92 % (94-98) L 06/19/23 04:05 ABG Base Excess 12.4 mmol/L (-2.0-3.0) H 06/19/23 04:05 [place] Test POSITIVE 06/19/23 04:05 VBG pH 7.348 (7.31-7.41) 06/18/23 05:47 Ionized Calcium 1.29 mmol/L (1.15-1.33) 06/18/23 05:47 Respiration Rate 16 b/min 06/14/23 15:30 O2 Delivery Device NON REBREATHER MASK 06/19/23 04:05 O2 Liters/Min 15.00 LPM 06/19/23 04:05 Vent Mode SYNCHRONOUS/TIMES 06/14/23 15:30 FiO2 50.00 06/14/23 15:30 EPAP 6 cmH2O 06/14/23 15:30 IPAP 14 cmH2O 06/14/23 15:30 Sodium 143 mmol/L (135-145) 06/20/23 06:06 Potassium 3.6 mmol/L (3.5-4.5) 06/20/23 06:06 Chloride 95 mmol/L (101-111) L 06/20/23 06:06 Carbon Dioxide > 45 mmol/L (21-32) H* 06/20/23 06:06 Anion Gap TNP 06/20/23 06:06 BUN 8 mg/dL (6-20) 06/20/23 06:06 Creatinine 0.4 mg/dL (0.6-1.3) L 06/20/23 06:06 Estimated GFR (MDRD) 167 (>89) 06/20/23 06:06 Glucose 136 mg/dL (74-104) H 06/20/23 06:06 POC Whole Bld Glucose 209 mg/dL (70 - 100) H 06/19/23 20:42 Estimat Average Glucose 226 mg/dL (70-100) H 06/10/23 06:12 Hemoglobin A1c % 9.5 % (4.27-6.07) H 06/10/23 06:12 Calcium 10.5 mg/dL (8.5-10.3) H 06/20/23 06:06 Phosphorus 3.3 mg/dL (2.5-5.0) 06/18/23 05:47 Magnesium 1.8 mg/dL (1.7-2.3) 06/18/23 05:47 Total Bilirubin 0.9 mg/dL (0.2-1.0) 06/09/23 09:53 AST 13 IU/L (10-42) 06/09/23 09:53 ALT 10 IU/L (10-60) 06/09/23 09:53 Alkaline Phosphatase 76 IU/L (42-121) 06/09/23 09:53 Troponin I High Sens 36.4 ng/L (2.3-14.8) H* 06/11/23 11:31 B-Natriuretic Peptide 60 pg/mL (5-100) 06/20/23 06:06 Total Protein 6.4 g/dL (6.4-8.9) 06/09/23 09:53 Albumin 3.9 g/dL (3.2-5.5) 06/09/23 09:53 Globulin 2.5 g/dL (2.1-4.2) 06/09/23 09:53 Albumin/Globulin Ratio 1.6 (1.0-2.2) 06/09/23 09:53 TSH 1.74 uIU/mL (0.34-5.60) 06/10/23 06:12 Urine Color DARK YELLOW 06/09/23 12:25 Urine Clarity CLOUDY (CLEAR) 06/09/23 12:25 Urine pH 6.0 PH (5.0-7.5) 06/09/23 12:25 Ur Specific [place] 1.025 (1.002-1.030) 06/09/23 12:25 Urine Protein TRACE mg/dL (NEGATIVE) 06/09/23 12:25 Urine Glucose (UA) 250 mg/dL (NEGATIVE) H 06/09/23 12:25 Urine Ketones NEGATIVE mg/dL (NEGATIVE) 06/09/23 12:25 Urine Occult Blood LARGE (NEGATIVE) H 06/09/23 12:25 Urine Nitrite NEGATIVE (NEGATIVE) 06/09/23 12:25 Urine Bilirubin NEGATIVE (NEGATIVE) 06/09/23 12:25 Urine Urobilinogen 0.2 (NORMAL) E.U./dL (NORMAL) 06/09/23 12:25 Ur Leukocyte Esterase NEGATIVE (NEGATIVE) 06/09/23 12:25 Urine RBC TNTC /HPF (0-5) H 06/09/23 12:25 Urine WBC 4-5 /HPF (0-5) 06/09/23 12:25 Ur Squamous Epith Cells MOD Squamous (<= Few) H 06/09/23 12:25 Urine Crystals >50 Calcium Oxalate /LPF 06/09/23 12:25 Urine Bacteria Moderate /HPF (None Seen) H 06/09/23 12:25 Urine Mucus Few Strands 06/09/23 12:25 Ur Microscopic Review INDICATED 06/09/23 12:25 Urine Culture Comments NOT INDICATED 06/09/23 12:25 Nasal Adenovirus (PCR) NOT DETECTED 06/09/23 09:50 Nasal B. parapertussis DNA (PCR) NOT DETECTED 06/09/23 09:50 Nasal Coronavir 229E PCR NOT DETECTED 06/09/23 09:50 Nasal Coronavir HKU1 PCR NOT DETECTED 06/09/23 09:50 Nasal Coronavir NL63 PCR NOT DETECTED 06/09/23 09:50 Nasal Coronavir OC43 PCR NOT DETECTED 06/09/23 09:50 Nasal Enterovir/Rhinovir PCR NOT DETECTED 06/09/23 09:50 Nasal Influenza B PCR NOT DETECTED 06/09/23 09:50 Nasal Influenza A PCR NOT DETECTED 06/09/23 09:50 Nasal Parainfluen 1 PCR NOT DETECTED 06/09/23 09:50 Nasal Parainfluen 2 PCR NOT DETECTED 06/09/23 09:50 Nasal Parainfluen 3 PCR NOT DETECTED 06/09/23 09:50 Nasal Parainfluen 4 PCR NOT DETECTED 06/09/23 09:50 Nasal RSV (PCR) NOT DETECTED 06/09/23 09:50 Nasal Screen MRSA (PCR) NEGATIVE (NEGATIVE) 06/11/23 05:00 Nasal B.pertussis DNA PCR NOT DETECTED 06/09/23 09:50 Nasal C.pneumoniae (PCR) NOT DETECTED 06/09/23 09:50 Amish Human Metapneumo PCR NOT DETECTED 06/09/23 09:50 Nasal M.pneumoniae (PCR) NOT DETECTED 06/09/23 09:50 Nasal SARS-CoV-2 (PCR) NOT DETECTED 06/09/23 09:50 Last Dose Date UNKNOWN 06/13/23 05:25 Last Dose Time UNKNOWN 06/13/23 05:25 Vancomycin Peak 43.7 ug/mL (20.0-40.0) H 06/11/23 21:00 Vancomycin Trough 21.6 ug/mL 06/13/23 05:25 Sepsis Event Note (H) - Evaluation Current Stage of Sepsis: Ruled out ABX Reporting Has patient been on IV antibiotics over the past 48 hours?: Yes Current Medications - Current Medications Current Medications: Active Medications Acetaminophen (Acetaminophen 325 Mg Tablet) 650 mg PO Q4HR PRN PRN Reason: Pain 1 to 4, or Fever Last Admin: 06/19/23 22:47 Dose: 650 mg Enoxaparin Sodium (Enoxaparin 40 Mg/0.4 Ml Syringe) 40 mg SUBQ DAILY PEREZ Last Admin: 06/20/23 08:34 Dose: 40 mg Famotidine (Famotidine 20 Mg Tablet) 20 mg PO BID [facility] Last Admin: 06/20/23 08:33 Dose: 20 mg Gabapentin (Gabapentin 300 Mg Capsule) 300 mg PO QPM [facility] Last Admin: 06/19/23 20:49 Dose: 300 mg Guaifenesin (Guaifenesin 600 Mg Tablet) 600 mg PO BID [facility] Last Admin: 06/20/23 08:33 Dose: 600 mg Insulin Glargine-yfgn (Insulin Glargine-Yfgn 300 Unit/3 Ml Pen) 20 unit SUBQ QPM [facility] Last Admin: 06/19/23 20:46 Dose: 20 unit Insulin Human Lispro (Insulin Lispro 300 Unit/3 Ml Pen) 1 - 9 unit SUBQ 0800,1200,1700,2100 [facility]; Protocol Last Admin: 06/20/23 11:58 Dose: 1 unit Magnesium Oxide (Magnesium Oxide 400 Mg Tablet) 400 mg PO DAILYWM [facility] Last Admin: 06/20/23 08:33 Dose: 400 mg Metoprolol Tartrate (Metoprolol Tartrate 25 Mg Tablet) 25 mg PO BID [facility] Last Admin: 06/20/23 08:33 Dose: 25 mg Ondansetron HCl (Ondansetron 4 Mg/2 Ml Vial) 4 mg IVP Q6HR PRN PRN Reason: Nausea / Vomiting Last Admin: 06/10/23 18:08 Dose: 4 mg Sodium Chloride (Sodium Chloride Flush 0.9% 10 Ml Syringe) 10 ml IVP PRN PRN PRN Reason: NEEDED PER PROVIDER ORDERS Last Admin: 06/18/23 05:26 Dose: 10 ml Sodium Chloride (Sodium Chloride Flush 0.9% 10 Ml Syringe) 10 ml IVP 0100,0900,1700 [facility] Last Admin: 06/20/23 08:35 Dose: 10 ml Trazodone HCl (Trazodone 50 Mg Tablet) 25 mg PO QPM [facility] Last Admin: 06/19/23 21:11 Dose: Not Given Gabapentin [Neurontin] 300 mg PO DAILY 06/09/23 Insulin Glargine,Hum.rec.anlog [Basaglar Kwikpen U-100] 52 units SUBQ HS 06/09/23 Liraglutide [Victoza 2-Pal] 1.2 mg SUBQ DAILY 06/09/23 Losartan Potassium 12.5 mg PO DAILY 06/09/23 Simvastatin [Zocor] 10 mg PO DAILY 06/09/23 Cholecalciferol [Vitamin D3] 400 unit PO DAILY 06/10/23 Tocopheryl [Vitamin E] 400 unit PO DAILY 06/10/23 Vitamin B Complex 1 each PO DAILY 06/10/23
[2023-06-20] MEDS: MAGNESIUM OXIDE 400 MG TABLET PO SCH (08:33)
[2023-06-20] MEDS: INSULIN LISPRO 300 UNIT/3 ML PEN SUBQ SCH ×4 (08:33→20:26)
[2023-06-20] MEDS: METOPROLOL TARTRATE 25 MG TABLET PO SCH ×2 (08:33→20:21)
[2023-06-20] MEDS: FAMOTIDINE 20 MG TABLET PO SCH ×2 (08:33→20:24)
[2023-06-20] MEDS: guaiFENesin 600 MG TABLET PO SCH ×2 (08:33→20:24)
[2023-06-20] MEDS: ENOXAPARIN 40 MG/0.4 ML SYRINGE SUBQ SCH (08:34)
[2023-06-20] MEDS: ACETAMINOPHEN 325 MG TABLET PO PRN (18:00)
[2023-06-20] MEDS: traZODone 50 MG TABLET PO SCH (20:20)
[2023-06-20] MEDS: GABAPENTIN 300 MG CAPSULE PO SCH (20:23)
[2023-06-20] MEDS: INSULIN GLARGINE-YFGN 300 UNIT/3 ML PEN SUBQ SCH (20:26)
[2023-06-21] MEDS: SODIUM CHLORIDE FLUSH 0.9% 10 ML SYRINGE IVP SCH ×3 (01:00→16:28)
[2023-06-21 05:09] LABS: BASOPHILS % (AUTO) 0.9 %; EOSINOPHILS # (AUTO) 0.1 10^3/uL (0.0-0.7); EOSINOPHILS % (AUTO) 2.2 %; HCT - HEMATOCRIT 38.8 % (37.0-47.0); LYMPHOCYTES # (AUTO) 1.8 10^3/uL (1.5-3.5); LYMPHOCYTES % (AUTO) 38.9 %; MEAN CORPUSCULAR HEMOGLOBIN 25.2 pg (27.0-31.0); MEAN CORPUSCULAR HGB CONC 28.4 g/dL (32.0-36.0); MEAN CORPUSCULAR VOLUME 88.8 fL (81.0-99.0); MEAN PLATELET VOLUME 9.9 fL (7.9-10.8); MONOCYTES # (AUTO) 0.6 10^3/uL (0.0-1.0); MONOCYTES % (AUTO) 12.2 %; NEUTROPHILS # (AUTO) 2.1 10^3/uL (1.5-6.6); NEUTROPHILS % (AUTO) 45.6 %; PLT - PLATELET COUNT 177 10^3/uL (130-450); RED BLOOD COUNT 4.37 10^6/uL (4.20-5.40); RED CELL DISTRIBUTION WIDTH 15.7 % (12.0-15.0); WHITE BLOOD COUNT 4.5 x10^3/uL (4.8-10.8)
[2023-06-21 06:13] LABS: CALCIUM 10.3 mg/dL (8.5-10.3); CREATININE 0.4 mg/dL (0.6-1.3); POTASSIUM 3.6 mmol/L (3.5-4.5)
--- NOTE | 2023-06-21 07:38 | PROVIDER PROGRESS NOTE ---
Assessment/Plan - Problem List (1) Acute respiratory failure with hypoxia and hypercarbia Assessment/Plan: During the mornings patient has been having confusion, constantly removing her oxygen, has desaturation to 70s, she with turned blue. Recovers well after oxygen being placed. 2 hours restrain had to be use to make sure his oxygen is on. The CO2 level might build up during the night, which caused her being confused, not able to cooperate (2) CO2 narcosis Assessment/Plan: CO2 buildup in the body during the night, she will have a lot of trouble to be coherent during the mornings. (3) Myotonic dystrophy Assessment/Plan: Worsening condition, patient would like to go home and be comfortable. Discussed with patient mom and 2 cousins, patient mom is open to hospice discussion. Which will be scheduled at 2 PM tomorrow (4) Pulmonary edema Assessment/Plan: Euvolemic, continue monitoring volume status (5) New onset a-fib Assessment/Plan: Still in A-fib, rate controlled Telemetry monitoring in case of acute ventricular arrhythmia (6) DM type 2 (diabetes mellitus, type 2) Assessment/Plan: DM diet, on insulin sliding scale - Current Meds Current Meds: Current Medications Generic Name Dose Route Start Last Admin Trade Name Freq PRN Reason Stop Dose Admin Acetaminophen 650 mg 06/09/23 13:50 06/20/23 18:00 Acetaminophen 325 Mg Tablet PO 650 mg Q4HR PRN Administration Pain 1 to 4, or Fever Enoxaparin Sodium 40 mg 06/10/23 09:00 06/20/23 08:34 Enoxaparin 40 Mg/0.4 Ml Syringe SUBQ 40 mg DAILY PEREZ Administration Famotidine 20 mg 06/18/23 21:00 06/20/23 20:24 Famotidine 20 Mg Tablet PO 20 mg BID PEREZ Administration Gabapentin 300 mg 06/15/23 02:25 06/20/23 20:23 Gabapentin 300 Mg Capsule PO 300 mg QPM PEREZ Administration Guaifenesin 600 mg 06/12/23 14:00 06/20/23 20:24 Guaifenesin 600 Mg Tablet PO 600 mg BID PEREZ Administration Insulin Glargine-yfgn 20 unit 06/15/23 21:00 06/20/23 20:26 Insulin Glargine-Yfgn 300 Unit/3 Ml Pen SUBQ 20 unit QPM PEREZ Administration Insulin Human Lispro 1 - 9 unit 06/10/23 17:21 06/20/23 20:26 Insulin Lispro 300 Unit/3 Ml Pen SUBQ 3 unit 0800,1200,1700,2100 PEREZ Administration Protocol Magnesium Oxide 400 mg 06/17/23 09:00 06/20/23 08:33 Magnesium Oxide 400 Mg Tablet PO 400 mg DAILYWM PEREZ Administration Metoprolol Tartrate 25 mg 06/19/23 21:00 06/20/23 20:21 Metoprolol Tartrate 25 Mg Tablet PO 25 mg BID PEREZ Administration Ondansetron HCl 4 mg 06/09/23 13:50 06/10/23 18:08 Ondansetron 4 Mg/2 Ml Vial IVP 4 mg Q6HR PRN Administration Nausea / Vomiting Sodium Chloride 10 ml 06/09/23 13:50 06/18/23 05:26 Sodium Chloride Flush 0.9% 10 Ml Syringe IVP 10 ml PRN PRN Administration NEEDED PER PROVIDER ORDERS Sodium Chloride 10 ml 06/09/23 17:00 06/21/23 01:00 Sodium Chloride Flush 0.9% 10 Ml Syringe IVP 10 ml 0100,0900,1700 PEREZ Administration Trazodone HCl 25 mg 06/16/23 21:00 06/20/23 20:20 Trazodone 50 Mg Tablet PO 25 mg QPM PEREZ Administration - Lab Result Lab results reviewed: Yes Fish Bone Diagrams: 06/21/23 04:53 06/21/23 04:53 - Additional Planning My Orders: My Active Orders 06/22/23 05:00 BMP - BASIC METABOLIC PANEL [CHEM] DAILYLAB CBC [CBC - COMP BLD CT W/AUTO DIFF] [HEME] DAILYLAB 06/23/23 05:00 BMP - BASIC METABOLIC PANEL [CHEM] DAILYLAB CBC [CBC - COMP BLD CT W/AUTO DIFF] [HEME] DAILYLAB Plan Discussed with:: Patient, Family, Mother (Family is open for home hospice versus hospice facility. Family meeting is scheduled at 2 PM tomorrow) Time Spent: 31-60 minutes Subjective - Subjective Patient Reports: Other (Patient states she feels fine, she would laugh impuls ively) Nursing Reports: Other (Desaturation during mornings, keep pulling her oxygen off) Objective Vital Signs: Vital Signs - 24 hr 06/20/23 06/20/23 06/20/23 08:24 08:33 09:43 Temperature Heart Rate [ Brachial] Heart Rate [ Monitoring electrodes] Respiratory Rate Blood Pressure 110/62 Blood Pressure [Left Brachial artery] Blood Pressure [Right Brachial artery] O2 Saturation 92 92 If not protocol 6 6 : Oxygen Flow, liters/minute 06/20/23 06/20/23 06/20/23 10:30 12:10 15:39 Temperature 36.4 C L 37.0 C Heart Rate [ 84 Brachial] Heart Rate [ 85 Monitoring electrodes] Respiratory 18 20 Rate Blood Pressure Blood Pressure 100/46 L [Left Brachial artery] Blood Pressure 99/61 [Right Brachial artery] O2 Saturation 92 92 If not protocol 6 6 6 : Oxygen Flow, liters/minute 06/20/23 06/20/23 06/20/23 19:45 19:59 20:21 Temperature 37 C Heart Rate [ Brachial] Heart Rate [ 93 Monitoring electrodes] Respiratory 20 Rate Blood Pressure 107/57 L Blood Pressure [Left Brachial artery] Blood Pressure 107/57 L [Right Brachial artery] O2 Saturation 93 If not protocol 4 4 : Oxygen Flow, liters/minute 06/21/23 06/21/23 06/21/23 00:35 02:14 05:21 Temperature 36.4 C L 36.6 C Heart Rate [ Brachial] Heart Rate [ 71 84 96 Monitoring electrodes] Respiratory 19 21 Rate Blood Pressure Blood Pressure 102/64 [Left Brachial artery] Blood Pressure 103/65 [Right Brachial artery] O2 Saturation 90 L 95 93 If not protocol 5 5 5 : Oxygen Flow, liters/minute 06/21/23 07:23 Temperature 36.8 C Heart Rate [ 95 Brachial] Heart Rate [ Monitoring electrodes] Respiratory 20 Rate Blood Pressure Blood Pressure [Left Brachial artery] Blood Pressure 93/64 [Right Brachial artery] O2 Saturation 100 If not protocol 5 : Oxygen Flow, liters/minute Oxygen O2 Source Oxymask I&O (Last 24 Hrs): Intake and Output Totals x24h 06/19/23 06/20/23 06/21/23 23:59 23:59 23:59 Intake Total 940 720 100 Output Total 1875 1200 250 Balance -748 -480 -150 General: Alert, Other (Intermittent confusion noted, intermittent hallucinations noted) HEENT: Atraumatic, EOMI Neck: Supple, No JVD Neuro: Alert, CN 2-12 Grossly Intact Cardiovascular: Other (Irregular) Respiratory: No respiratory distress Abdomen: Soft, No tenderness Extremities: No clubbing, No edema - Results Results: Laboratory Results WBC 4.5 x10^3/uL (4.8-10.8) L 06/21/23 04:53 RBC 4.37 10^6/uL (4.20-5.40) 06/21/23 04:53 Hgb 11.0 g/dL (12.0-16.0) L 06/21/23 04:53 Hct 38.8 % (37.0-47.0) 06/21/23 04:53 MCV 88.8 fL (81.0-99.0) 06/21/23 04:53 MCH 25.2 pg (27.0-31.0) L 06/21/23 04:53 MCHC 28.4 g/dL (32.0-36.0) L 06/21/23 04:53 RDW 15.7 % (12.0-15.0) H 06/21/23 04:53 Plt Count 177 10^3/uL (130-450) 06/21/23 04:53 MPV 9.9 fL (7.9-10.8) 06/21/23 04:53 Neut # (Auto) 2.1 10^3/uL (1.5-6.6) 06/21/23 04:53 Lymph # (Auto) 1.8 10^3/uL (1.5-3.5) 06/21/23 04:53 [place] # (Auto) 0.6 10^3/uL (0.0-1.0) 06/21/23 04:53 Eos # (Auto) 0.1 10^3/uL (0.0-0.7) 06/21/23 04:53 Baso # (Auto) 0.0 10^3/uL (0.0-0.1) 06/21/23 04:53 Absolute Nucleated RBC 0.00 x10^3/uL 06/21/23 04:53 Nucleated RBC % 0.0 /100WBC 06/21/23 04:53 Manual Slide Review Indicated 06/13/23 05:25 WBC Morphology NORMAL APPEARANCE (NORMAL) 06/13/23 05:25 Platelet Estimate NORMAL (130-450,000) (NORMAL) 06/13/23 05:25 Platelet Morphology NORMAL APPEARANCE (NORMAL) 06/13/23 05:25 RBC Morph Micro Appear 1+ ANISOCYTOSIS (NORMAL) 1+ STOMATOCYTES (NORMAL) 1+ HYPOCHROMASIA (NORMAL) 06/13/23 05:25 RBC Morph Micro Appear 1+ ANISOCYTOSIS (NORMAL) 1+ STOMATOCYTES (NORMAL) 1+ HYPOCHROMASIA (NORMAL) 06/13/23 05:25 RBC Morph Micro Appear 1+ ANISOCYTOSIS (NORMAL) 1+ STOMATOCYTES (NORMAL) 1+ HYPOCHROMASIA (NORMAL) 06/13/23 05:25 Bld Gas Analysis Time 0415 06/19/23 04:05 Sample Site RIGHT RADIAL 06/19/23 04:05 ABG pH 7.30 (7.35-7.45) L 06/19/23 04:05 ABG pCO2 87 mmHg (34-45) H* 06/19/23 04:05 ABG pO2 70 mmHg (80-100) L 06/19/23 04:05 ABG HCO3 42.1 mmol/L (22.0-26.0) H 06/19/23 04:05 ABG Total CO2 44.8 MMOL/L (21.0-29.0) H* 06/19/23 04:05 ABG O2 Saturation 92 % (94-98) L 06/19/23 04:05 ABG Base Excess 12.4 mmol/L (-2.0-3.0) H 06/19/23 04:05 [place] Test POSITIVE 06/19/23 04:05 VBG pH 7.348 (7.31-7.41) 06/18/23 05:47 Ionized Calcium 1.29 mmol/L (1.15-1.33) 06/18/23 05:47 Respiration Rate 16 b/min 06/14/23 15:30 O2 Delivery Device NON REBREATHER MASK 06/19/23 04:05 O2 Liters/Min 15.00 LPM 06/19/23 04:05 Vent Mode SYNCHRONOUS/TIMES 06/14/23 15:30 FiO2 50.00 06/14/23 15:30 EPAP 6 cmH2O 06/14/23 15:30 IPAP 14 cmH2O 06/14/23 15:30 Sodium 145 mmol/L (135-145) 06/21/23 04:53 Potassium 3.6 mmol/L (3.5-4.5) 06/21/23 04:53 Chloride 98 mmol/L (101-111) L 06/21/23 04:53 Carbon Dioxide 45 mmol/L (21-32) H* 06/21/23 04:53 Anion Gap 2.0 (6-13) L 06/21/23 04:53 BUN 8 mg/dL (6-20) 06/21/23 04:53 Creatinine 0.4 mg/dL (0.6-1.3) L 06/21/23 04:53 Estimated GFR (MDRD) 167 (>89) 06/21/23 04:53 Glucose 133 mg/dL (74-104) H 06/21/23 04:53 POC Whole Bld Glucose 113 mg/dL (70 - 100) H 06/21/23 07:20 Estimat Average Glucose 226 mg/dL (70-100) H 06/10/23 06:12 Hemoglobin A1c % 9.5 % (4.27-6.07) H 06/10/23 06:12 Calcium 10.3 mg/dL (8.5-10.3) 06/21/23 04:53 Phosphorus 3.3 mg/dL (2.5-5.0) 06/18/23 05:47 Magnesium 1.8 mg/dL (1.7-2.3) 06/18/23 05:47 Total Bilirubin 0.9 mg/dL (0.2-1.0) 06/09/23 09:53 AST 13 IU/L (10-42) 06/09/23 09:53 ALT 10 IU/L (10-60) 06/09/23 09:53 Alkaline Phosphatase 76 IU/L (42-121) 06/09/23 09:53 Troponin I High Sens 36.4 ng/L (2.3-14.8) H* 06/11/23 11:31 B-Natriuretic Peptide 60 pg/mL (5-100) 06/20/23 06:06 Total Protein 6.4 g/dL (6.4-8.9) 06/09/23 09:53 Albumin 3.9 g/dL (3.2-5.5) 06/09/23 09:53 Globulin 2.5 g/dL (2.1-4.2) 06/09/23 09:53 Albumin/Globulin Ratio 1.6 (1.0-2.2) 06/09/23 09:53 TSH 1.74 uIU/mL (0.34-5.60) 06/10/23 06:12 Urine Color DARK YELLOW 06/09/23 12:25 Urine Clarity CLOUDY (CLEAR) 06/09/23 12:25 Urine pH 6.0 PH (5.0-7.5) 06/09/23 12:25 Ur Specific [place] 1.025 (1.002-1.030) 06/09/23 12:25 Urine Protein TRACE mg/dL (NEGATIVE) 06/09/23 12:25 Urine Glucose (UA) 250 mg/dL (NEGATIVE) H 06/09/23 12:25 Urine Ketones NEGATIVE mg/dL (NEGATIVE) 06/09/23 12:25 Urine Occult Blood LARGE (NEGATIVE) H 06/09/23 12:25 Urine Nitrite NEGATIVE (NEGATIVE) 06/09/23 12:25 Urine Bilirubin NEGATIVE (NEGATIVE) 06/09/23 12:25 Urine Urobilinogen 0.2 (NORMAL) E.U./dL (NORMAL) 06/09/23 12:25 Ur Leukocyte Esterase NEGATIVE (NEGATIVE) 06/09/23 12:25 Urine RBC TNTC /HPF (0-5) H 06/09/23 12:25 Urine WBC 4-5 /HPF (0-5) 06/09/23 12:25 Ur Squamous Epith Cells MOD Squamous (<= Few) H 06/09/23 12:25 Urine Crystals >50 Calcium Oxalate /LPF 06/09/23 12:25 Urine Bacteria Moderate /HPF (None Seen) H 06/09/23 12:25 Urine Mucus Few Strands 06/09/23 12:25 Ur Microscopic Review INDICATED 06/09/23 12:25 Urine Culture Comments NOT INDICATED 06/09/23 12:25 Nasal Adenovirus (PCR) NOT DETECTED 06/09/23 09:50 Nasal B. parapertussis DNA (PCR) NOT DETECTED 06/09/23 09:50 Nasal Coronavir 229E PCR NOT DETECTED 06/09/23 09:50 Nasal Coronavir HKU1 PCR NOT DETECTED 06/09/23 09:50 Nasal Coronavir NL63 PCR NOT DETECTED 06/09/23 09:50 Nasal Coronavir OC43 PCR NOT DETECTED 06/09/23 09:50 Nasal Enterovir/Rhinovir PCR NOT DETECTED 06/09/23 09:50 Nasal Influenza B PCR NOT DETECTED 06/09/23 09:50 Nasal Influenza A PCR NOT DETECTED 06/09/23 09:50 Nasal Parainfluen 1 PCR NOT DETECTED 06/09/23 09:50 Nasal Parainfluen 2 PCR NOT DETECTED 06/09/23 09:50 Nasal Parainfluen 3 PCR NOT DETECTED 06/09/23 09:50 Nasal Parainfluen 4 PCR NOT DETECTED 06/09/23 09:50 Nasal RSV (PCR) NOT DETECTED 06/09/23 09:50 Nasal Screen MRSA (PCR) NEGATIVE (NEGATIVE) 06/11/23 05:00 Nasal B.pertussis DNA PCR NOT DETECTED 06/09/23 09:50 Nasal C.pneumoniae (PCR) NOT DETECTED 06/09/23 09:50 Amish Human Metapneumo PCR NOT DETECTED 06/09/23 09:50 Nasal M.pneumoniae (PCR) NOT DETECTED 06/09/23 09:50 Nasal SARS-CoV-2 (PCR) NOT DETECTED 06/09/23 09:50 Last Dose Date UNKNOWN 06/13/23 05:25 Last Dose Time UNKNOWN 06/13/23 05:25 Vancomycin Peak 43.7 ug/mL (20.0-40.0) H 06/11/23 21:00 Vancomycin Trough 21.6 ug/mL 06/13/23 05:25 Sepsis Event Note (H) - Evaluation Current Stage of Sepsis: Ruled out ABX Reporting Has patient been on IV antibiotics over the past 48 hours?: No Current Medications - Current Medications Current Medications: Active Medications Acetaminophen (Acetaminophen 325 Mg Tablet) 650 mg PO Q4HR PRN PRN Reason: Pain 1 to 4, or Fever Last Admin: 06/20/23 18:00 Dose: 650 mg Enoxaparin Sodium (Enoxaparin 40 Mg/0.4 Ml Syringe) 40 mg SUBQ DAILY [facility] Last Admin: 06/21/23 09:12 Dose: 40 mg Famotidine (Famotidine 20 Mg Tablet) 20 mg PO BID [facility] Last Admin: 06/21/23 09:09 Dose: 20 mg Gabapentin (Gabapentin 300 Mg Capsule) 300 mg PO QPM [facility] Last Admin: 06/20/23 20:23 Dose: 300 mg Guaifenesin (Guaifenesin 600 Mg Tablet) 600 mg PO BID [facility] Last Admin: 06/21/23 09:09 Dose: 600 mg Insulin Glargine-yfgn (Insulin Glargine-Yfgn 300 Unit/3 Ml Pen) 20 unit SUBQ QPM [facility] Last Admin: 06/20/23 20:26 Dose: 20 unit Insulin Human Lispro (Insulin Lispro 300 Unit/3 Ml Pen) 1 - 9 unit SUBQ 0800,1200,1700,2100 [facility]; Protocol Last Admin: 06/21/23 11:46 Dose: 3 unit Magnesium Oxide (Magnesium Oxide 400 Mg Tablet) 400 mg PO DAILYWM [facility] Last Admin: 06/21/23 09:09 Dose: 400 mg Metoprolol Tartrate (Metoprolol Tartrate 25 Mg Tablet) 25 mg PO BID [facility] Last Admin: 06/21/23 09:11 Dose: Not Given Ondansetron HCl (Ondansetron 4 Mg/2 Ml Vial) 4 mg IVP Q6HR PRN PRN Reason: Nausea / Vomiting Last Admin: 06/10/23 18:08 Dose: 4 mg Sodium Chloride (Sodium Chloride Flush 0.9% 10 Ml Syringe) 10 ml IVP PRN PRN PRN Reason: NEEDED PER PROVIDER ORDERS Last Admin: 06/18/23 05:26 Dose: 10 ml Sodium Chloride (Sodium Chloride Flush 0.9% 10 Ml Syringe) 10 ml IVP 0100,0900,1700 [facility] Last Admin: 06/21/23 09:12 Dose: 10 ml Trazodone HCl (Trazodone 50 Mg Tablet) 25 mg PO QPM [facility] Last Admin: 06/20/23 20:20 Dose: 25 mg Gabapentin [Neurontin] 300 mg PO DAILY 06/09/23 Insulin Glargine,Hum.rec.anlog [Basaglar Kwikpen U-100] 52 units SUBQ HS 06/09/23 Liraglutide [Victoza 2-Pal] 1.2 mg SUBQ DAILY 06/09/23 Losartan Potassium 12.5 mg PO DAILY 06/09/23 Simvastatin [Zocor] 10 mg PO DAILY 06/09/23 Cholecalciferol [Vitamin D3] 400 unit PO DAILY 06/10/23 Tocopheryl [Vitamin E] 400 unit PO DAILY 06/10/23 Vitamin B Complex 1 each PO DAILY 06/10/23
[2023-06-21] MEDS: FAMOTIDINE 20 MG TABLET PO SCH ×2 (09:09→20:43)
[2023-06-21] MEDS: MAGNESIUM OXIDE 400 MG TABLET PO SCH (09:09)
[2023-06-21] MEDS: guaiFENesin 600 MG TABLET PO SCH ×2 (09:09→20:42)
[2023-06-21] MEDS: INSULIN LISPRO 300 UNIT/3 ML PEN SUBQ SCH ×4 (09:09→20:44)
[2023-06-21] MEDS: METOPROLOL TARTRATE 25 MG TABLET PO SCH ×2 (09:11→20:41)
[2023-06-21] MEDS: ENOXAPARIN 40 MG/0.4 ML SYRINGE SUBQ SCH (09:12)
--- NOTE | 2023-06-21 14:09 | ADVANCE CARE PLANNING NOTE ---
Advance Care Planning - Planning Encounter Date: 06/21/23 Time: 13:00 Purpose: Goal of care discussion Parties in Attendance: Yes, along with patient mother Robyn and 2 of her cousins Decisional Capacity of the Patient: Patient has no insight of her medical condition, with cognitive function impairment, she does not have decision capacity - Diagnosis for Encounter (1) Acute respiratory failure with hypoxia and hypercarbia Summary: Hypoxia and hypercapnia continues worsening. If with no treatment, patient will have guarded prognosis including sudden (2) CO2 narcosis Summary: Worsening at night and in the morning Can Have confusion, hallucination, loss the drive for breathing (3) Myotonic dystrophy Summary: Worsening, no treatment to reverse the condition. The treatment offered to prolong the symptoms is BiPAP at night, and oxygen treatment. Both are not compliant by patient (4) Pulmonary edema Summary: Appears stable (5) New onset a-fib Summary: Patient has rate controlled, however not a candidate for anticoagulant. Which increase the risk for stroke, further increase risk of her mortality (6) DM type 2 (diabetes mellitus, type 2) Summary: Lifelong disease, need to be managed properly, compliant to treatment and able to check her blood sugar level frequently and reliably - Encounter Subjective/Patient's Story: Patient has no insight about her medical condition. Is not compliant to treatment. Patient has elderly mother, 85 years old, who is a guardian and principal support. However mother herself has medical conditions.And needs wheelchair for transportation Goals of Care: Patient mom is interested in discuss of hospice care Plan: Tomorrow 2 PM we will have care conference call with hospice service and patient mom and patient's sister Code Status: Do Not Attempt Resuscitation (20)
[2023-06-21] MEDS: ACETAMINOPHEN 325 MG TABLET PO PRN (16:27)
[2023-06-21] MEDS: GABAPENTIN 300 MG CAPSULE PO SCH (20:42)
[2023-06-21] MEDS: traZODone 50 MG TABLET PO SCH (20:43)
[2023-06-21] MEDS: INSULIN GLARGINE-YFGN 300 UNIT/3 ML PEN SUBQ SCH (20:45)
[2023-06-22] MEDS: SODIUM CHLORIDE FLUSH 0.9% 10 ML SYRINGE IVP SCH ×3 (01:46→20:33)
[2023-06-22 07:33] LABS: BASOPHILS # (AUTO) 0.1 10^3/uL (0.0-0.1); EOSINOPHILS # (AUTO) 0.1 10^3/uL (0.0-0.7); HCT - HEMATOCRIT 41.2 % (37.0-47.0); HGB - HEMOGLOBIN 11.6 g/dL (12.0-16.0); LYMPHOCYTES # (AUTO) 1.9 10^3/uL (1.5-3.5); LYMPHOCYTES % (AUTO) 37.3 %; MEAN CORPUSCULAR HEMOGLOBIN 25.2 pg (27.0-31.0); MEAN CORPUSCULAR HGB CONC 28.2 g/dL (32.0-36.0); MEAN CORPUSCULAR VOLUME 89.4 fL (81.0-99.0); MEAN PLATELET VOLUME 9.8 fL (7.9-10.8); MONOCYTES # (AUTO) 0.6 10^3/uL (0.0-1.0); MONOCYTES % (AUTO) 11.1 %; NEUTROPHILS # (AUTO) 2.5 10^3/uL (1.5-6.6); NEUTROPHILS % (AUTO) 48.4 %; PLT - PLATELET COUNT 213 10^3/uL (130-450); RED BLOOD COUNT 4.61 10^6/uL (4.20-5.40); RED CELL DISTRIBUTION WIDTH 15.6 % (12.0-15.0); WHITE BLOOD COUNT 5.1 x10^3/uL (4.8-10.8)
[2023-06-22 07:34] LABS: SLIDE REVIEW? Indicated
[2023-06-22 07:52] LABS: PLATELET ESTIMATE, MANUAL NORMAL (130-450,000) (NORMAL); PLATELET MORPHOLOGY NORMAL APPEARANCE (NORMAL)
[2023-06-22 07:53] LABS: RBC MORPHOLOGY (MULTIPLE) 1+ HYPOCHROMASIA (NORMAL)
--- NOTE | 2023-06-22 07:54 | PROVIDER PROGRESS NOTE ---
Assessment/Plan - Problem List (1) Acute respiratory failure with hypoxia and hypercarbia Assessment/Plan: Stable, Oxygen need is fluctuated between 5 L to 10 L, to maintain oxygen saturation over 92% If patient oxygen needs is around 5 L, patient can be discharged to a short-term rehab, this plan has been in agreement with patient mom and sister If patient is worsening, family may consider hospice care (2) CO2 narcosis Assessment/Plan: Mental status can fluctuate depends on the status of CO2 retention Evening and morning are challenging, can keep moving her oxygen oxy mask from time to time, causing desaturation and turning blue, If patient is fully awake, patient can feed herself, can carry conversation (4) Pulmonary edema Assessment/Plan: Euvolemic, Monitoring off diuretics (5) New onset a-fib Assessment/Plan: Still in A-fib Not a candidate for anticoagulant due to poor cognitive function and poor insight of her condition On metoprolol for rate control (6) DM type 2 (diabetes mellitus, type 2) Assessment/Plan: On DM diet, insulin sliding scale Hypoglycemia precaution - Current Meds Current Meds: Current Medications Generic Name Dose Route Start Last Admin Trade Name Freq PRN Reason Stop Dose Admin Acetaminophen 650 mg 06/09/23 13:50 06/21/23 16:27 Acetaminophen 325 Mg Tablet PO 650 mg Q4HR PRN Administration Pain 1 to 4, or Fever Enoxaparin Sodium 40 mg 06/10/23 09:00 06/21/23 09:12 Enoxaparin 40 Mg/0.4 Ml Syringe SUBQ 40 mg DAILY PEREZ Administration Famotidine 20 mg 06/18/23 21:00 06/21/23 20:43 Famotidine 20 Mg Tablet PO 20 mg BID PEREZ Administration Gabapentin 300 mg 06/15/23 02:25 06/21/23 20:42 Gabapentin 300 Mg Capsule PO 300 mg QPM PEREZ Administration Guaifenesin 600 mg 06/12/23 14:00 06/21/23 20:42 Guaifenesin 600 Mg Tablet PO 600 mg BID PEREZ Administration Insulin Glargine-yfgn 20 unit 06/15/23 21:00 06/21/23 20:45 Insulin Glargine-Yfgn 300 Unit/3 Ml Pen SUBQ 20 unit QPM PEREZ Administration Insulin Human Lispro 1 - 9 unit 06/10/23 17:21 06/21/23 20:44 Insulin Lispro 300 Unit/3 Ml Pen SUBQ 5 unit 0800,1200,1700,2100 PEREZ Administration Protocol Magnesium Oxide 400 mg 06/17/23 09:00 06/21/23 09:09 Magnesium Oxide 400 Mg Tablet PO 400 mg DAILYWM PEREZ Administration Metoprolol Tartrate 25 mg 06/19/23 21:00 06/21/23 20:41 Metoprolol Tartrate 25 Mg Tablet PO 25 mg BID EPREZ Administration Ondansetron HCl 4 mg 06/09/23 13:50 06/10/23 18:08 Ondansetron 4 Mg/2 Ml Vial IVP 4 mg Q6HR PRN Administration Nausea / Vomiting Sodium Chloride 10 ml 06/09/23 13:50 06/18/23 05:26 Sodium Chloride Flush 0.9% 10 Ml Syringe IVP 10 ml PRN PRN Administration NEEDED PER PROVIDER ORDERS Sodium Chloride 10 ml 06/09/23 17:00 06/22/23 01:46 Sodium Chloride Flush 0.9% 10 Ml Syringe IVP 10 ml 0100,0900,1700 PEREZ Administration Trazodone HCl 25 mg 06/16/23 21:00 06/21/23 20:43 Trazodone 50 Mg Tablet PO 25 mg QPM PEREZ Administration - Lab Result Lab results reviewed: Yes Fish Bone Diagrams: 06/22/23 07:27 06/22/23 07:27 - Additional Planning Condition/Complexity: Stable My Orders: My Active Orders 06/22/23 07:27 BMP - BASIC METABOLIC PANEL [CHEM] DAILYLAB 06/23/23 05:00 BMP - BASIC METABOLIC PANEL [CHEM] DAILYLAB CBC [CBC - COMP BLD CT W/AUTO DIFF] [HEME] DAILYLAB Plan Discussed with:: Patient, Family (20 minutes spent with patient and his mother and sister had care plan discussed postal worker Sandra and charge nurse Sharonda were at the family phone conference at bedside) Time Spent: 31-60 minutes Subjective - Subjective Patient Reports: No Complaints (Patient states she feels fine she would like to go home, which she has been saying over the past week) Objective Vital Signs: Vital Signs - 24 hr 06/21/23 06/21/23 06/21/23 09:11 09:35 11:07 Temperature 36.4 C L Heart Rate [ 97 Brachial] Heart Rate [ Monitoring electrodes] Respiratory 20 Rate Blood Pressure 93/64 Blood Pressure [Left Brachial artery] Blood Pressure 116/71 [Right Brachial artery] O2 Saturation 92 96 If not protocol 5 5 : Oxygen Flow, liters/minute 06/21/23 06/21/23 06/21/23 12:31 14:00 15:24 Temperature 37.2 C Heart Rate [ Brachial] Heart Rate [ 107 H Monitoring electrodes] Respiratory 16 Rate Blood Pressure Blood Pressure 112/58 L [Left Brachial artery] Blood Pressure [Right Brachial artery] O2 Saturation 95 92 95 If not protocol 5 5 5 : Oxygen Flow, liters/minute 06/21/23 06/21/23 06/21/23 20:39 20:41 22:20 Temperature 36.6 C Heart Rate [ Brachial] Heart Rate [ 95 Monitoring electrodes] Respiratory 18 Rate Blood Pressure 115/66 Blood Pressure [Left Brachial artery] Blood Pressure 115/66 [Right Brachial artery] O2 Saturation 96 If not protocol 4 7 : Oxygen Flow, liters/minute 06/22/23 06/22/23 06/22/23 00:17 00:50 00:53 Temperature 36.5 C Heart Rate [ Brachial] Heart Rate [ 90 Monitoring electrodes] Respiratory 20 Rate Blood Pressure Blood Pressure [Left Brachial artery] Blood Pressure 107/69 [Right Brachial artery] O2 Saturation 94 69 L 95 If not protocol 7 7 : Oxygen Flow, liters/minute 06/22/23 06/22/23 05:57 07:30 Temperature 36.6 C 37.0 C Heart Rate [ 84 Brachial] Heart Rate [ 84 Monitoring electrodes] Respiratory 20 20 Rate Blood Pressure Blood Pressure 104/64 [Left Brachial artery] Blood Pressure 102/73 [Right Brachial artery] O2 Saturation 94 92 If not protocol 5 4 : Oxygen Flow, liters/minute Oxygen O2 Source Nasal cannula I&O (Last 24 Hrs): Intake and Output Totals x24h 06/20/23 06/21/23 06/22/23 23:59 23:59 23:59 Intake Total 720 780 Output Total 1200 800 750 Balance -480 -20 -020 General: Alert, Other (Tired looking) HEENT: PERRLA, EOMI Neck: Supple, No JVD Neuro: CN 2-12 Grossly Intact Cardiovascular: Other (Irregularly irregular) Abdomen: Soft, No tenderness Extremities: No clubbing, No edema Skin: No rashes - Results Results: Laboratory Results WBC 5.1 x10^3/uL (4.8-10.8) 06/22/23 07: RBC 4.61 10^6/uL (4.20-5.40) 06/22/23 07: Hgb 11.6 g/dL (12.0-16.0) L 06/22/23 07: Hct 41.2 % (37.0-47.0) 06/22/23 07: MCV 89.4 fL (81.0-99.0) 06/22/23 07: MCH 25.2 pg (27.0-31.0) L 06/22/23 07: MCHC 28.2 g/dL (32.0-36.0) L 06/22/23 07: RDW 15.6 % (12.0-15.0) H 06/22/23 07:27 Plt Count 213 10^3/uL (130-450) 06/22/23 07: MPV 9.8 fL (7.9-10.8) 06/22/23 07:27 Neut # (Auto) 2.5 10^3/uL (1.5-6.6) 06/22/23 07:27 Lymph # (Auto) 1.9 10^3/uL (1.5-3.5) 06/22/23 07:27 [place] # (Auto) 0.6 10^3/uL (0.0-1.0) 06/22/23 07:27 Eos # (Auto) 0.1 10^3/uL (0.0-0.7) 06/22/23 07: Baso # (Auto) 0.1 10^3/uL (0.0-0.1) 06/22/23 07: Absolute Nucleated RBC 0.00 x10^3/uL 06/22/23 07: Nucleated RBC % 0.0 /100WBC 06/22/23 07:27 Manual Slide Review Indicated 06/22/23 07:27 WBC Morphology NORMAL APPEARANCE (NORMAL) 06/13/23 05:25 Platelet Estimate NORMAL (130-450,000) (NORMAL) 06/22/23 07: Platelet Morphology NORMAL APPEARANCE (NORMAL) 06/22/23 07:27 RBC Morph Micro Appear 1+ HYPOCHROMASIA (NORMAL) 06/22/23 07:27 Bld Gas Analysis Time 0415 06/19/23 04:05 Sample Site RIGHT RADIAL 06/19/23 04:05 ABG pH 7.30 (7.35-7.45) L 06/19/23 04:05 ABG pCO2 87 mmHg (34-45) H* 06/19/23 04:05 ABG pO2 70 mmHg (80-100) L 06/19/23 04:05 ABG HCO3 42.1 mmol/L (22.0-26.0) H 06/19/23 04:05 ABG Total CO2 44.8 MMOL/L (21.0-29.0) H* 06/19/23 04:05 ABG O2 Saturation 92 % (94-98) L 06/19/23 04:05 ABG Base Excess 12.4 mmol/L (-2.0-3.0) H 06/19/23 04:05 [place] Test POSITIVE 06/19/23 04:05 VBG pH 7.348 (7.31-7.41) 06/18/23 05:47 Ionized Calcium 1.29 mmol/L (1.15-1.33) 06/18/23 05:47 Respiration Rate 16 b/min 06/14/23 15:30 O2 Delivery Device NON REBREATHER MASK 06/19/23 04:05 O2 Liters/Min 15.00 LPM 06/19/23 04:05 Vent Mode SYNCHRONOUS/TIMES 06/14/23 15:30 FiO2 50.00 06/14/23 15:30 EPAP 6 cmH2O 06/14/23 15:30 IPAP 14 cmH2O 06/14/23 15:30 Sodium 145 mmol/L (135-145) 06/21/23 04:53 Potassium 3.6 mmol/L (3.5-4.5) 06/21/23 04:53 Chloride 98 mmol/L (101-111) L 06/21/23 04:53 Carbon Dioxide 45 mmol/L (21-32) H* 06/21/23 04:53 Anion Gap 2.0 (6-13) L 06/21/23 04:53 BUN 8 mg/dL (6-20) 06/21/23 04:53 Creatinine 0.4 mg/dL (0.6-1.3) L 06/21/23 04:53 Estimated GFR (MDRD) 167 (>89) 06/21/23 04:53 Glucose 133 mg/dL (74-104) H 06/21/23 04:53 POC Whole Bld Glucose 135 mg/dL (70 - 100) H 06/22/23 07:25 Estimat Average Glucose 226 mg/dL (70-100) H 06/10/23 06:12 Hemoglobin A1c % 9.5 % (4.27-6.07) H 06/10/23 06:12 Calcium 10.3 mg/dL (8.5-10.3) 06/21/23 04:53 Phosphorus 3.3 mg/dL (2.5-5.0) 06/18/23 05:47 Magnesium 1.8 mg/dL (1.7-2.3) 06/18/23 05:47 Total Bilirubin 0.9 mg/dL (0.2-1.0) 06/09/23 09:53 AST 13 IU/L (10-42) 06/09/23 09:53 ALT 10 IU/L (10-60) 06/09/23 09:53 Alkaline Phosphatase 76 IU/L (42-121) 06/09/23 09:53 Troponin I High Sens 36.4 ng/L (2.3-14.8) H* 06/11/23 11:31 B-Natriuretic Peptide 60 pg/mL (5-100) 06/20/23 06:06 Total Protein 6.4 g/dL (6.4-8.9) 06/09/23 09:53 Albumin 3.9 g/dL (3.2-5.5) 06/09/23 09:53 Globulin 2.5 g/dL (2.1-4.2) 06/09/23 09:53 Albumin/Globulin Ratio 1.6 (1.0-2.2) 06/09/23 09:53 TSH 1.74 uIU/mL (0.34-5.60) 06/10/23 06:12 Urine Color DARK YELLOW 06/09/23 12:25 Urine Clarity CLOUDY (CLEAR) 06/09/23 12:25 Urine pH 6.0 PH (5.0-7.5) 06/09/23 12:25 Ur Specific [place] 1.025 (1.002-1.030) 06/09/23 12:25 Urine Protein TRACE mg/dL (NEGATIVE) 06/09/23 12:25 Urine Glucose (UA) 250 mg/dL (NEGATIVE) H 06/09/23 12:25 Urine Ketones NEGATIVE mg/dL (NEGATIVE) 06/09/23 12:25 Urine Occult Blood LARGE (NEGATIVE) H 06/09/23 12:25 Urine Nitrite NEGATIVE (NEGATIVE) 06/09/23 12:25 Urine Bilirubin NEGATIVE (NEGATIVE) 06/09/23 12:25 Urine Urobilinogen 0.2 (NORMAL) E.U./dL (NORMAL) 06/09/23 12:25 Ur Leukocyte Esterase NEGATIVE (NEGATIVE) 06/09/23 12:25 Urine RBC TNTC /HPF (0-5) H 06/09/23 12:25 Urine WBC 4-5 /HPF (0-5) 06/09/23 12:25 Ur Squamous Epith Cells MOD Squamous (<= Few) H 06/09/23 12:25 Urine Crystals >50 Calcium Oxalate /LPF 06/09/23 12:25 Urine Bacteria Moderate /HPF (None Seen) H 06/09/23 12:25 Urine Mucus Few Strands 06/09/23 12:25 Ur Microscopic Review INDICATED 06/09/23 12:25 Urine Culture Comments NOT INDICATED 06/09/23 12:25 Nasal Adenovirus (PCR) NOT DETECTED 06/09/23 09:50 Nasal B. parapertussis DNA (PCR) NOT DETECTED 06/09/23 09:50 Nasal Coronavir 229E PCR NOT DETECTED 06/09/23 09:50 Nasal Coronavir HKU1 PCR NOT DETECTED 06/09/23 09:50 Nasal Coronavir NL63 PCR NOT DETECTED 06/09/23 09:50 Nasal Coronavir OC43 PCR NOT DETECTED 06/09/23 09:50 Nasal Enterovir/Rhinovir PCR NOT DETECTED 06/09/23 09:50 Nasal Influenza B PCR NOT DETECTED 06/09/23 09:50 Nasal Influenza A PCR NOT DETECTED 06/09/23 09:50 Nasal Parainfluen 1 PCR NOT DETECTED 06/09/23 09:50 Nasal Parainfluen 2 PCR NOT DETECTED 06/09/23 09:50 Nasal Parainfluen 3 PCR NOT DETECTED 06/09/23 09:50 Nasal Parainfluen 4 PCR NOT DETECTED 06/09/23 09:50 Nasal RSV (PCR) NOT DETECTED 06/09/23 09:50 Nasal Screen MRSA (PCR) NEGATIVE (NEGATIVE) 06/11/23 05:00 Nasal B.pertussis DNA PCR NOT DETECTED 06/09/23 09:50 Nasal C.pneumoniae (PCR) NOT DETECTED 06/09/23 09:50 Amish Human Metapneumo PCR NOT DETECTED 06/09/23 09:50 Nasal M.pneumoniae (PCR) NOT DETECTED 06/09/23 09:50 Nasal SARS-CoV-2 (PCR) NOT DETECTED 06/09/23 09:50 Last Dose Date UNKNOWN 06/13/23 05:25 Last Dose Time UNKNOWN 06/13/23 05:25 Vancomycin Peak 43.7 ug/mL (20.0-40.0) H 06/11/23 21:00 Vancomycin Trough 21.6 ug/mL 06/13/23 05:25 Sepsis Event Note (H) - Evaluation Current Stage of Sepsis: Ruled out ABX Reporting Has patient been on IV antibiotics over the past 48 hours?: No Current Medications - Current Medications Current Medications: Active Medications Acetaminophen (Acetaminophen 325 Mg Tablet) 650 mg PO Q4HR PRN PRN Reason: Pain 1 to 4, or Fever Last Admin: 06/21/23 16:27 Dose: 650 mg Enoxaparin Sodium (Enoxaparin 40 Mg/0.4 Ml Syringe) 40 mg SUBQ DAILY [facility] Last Admin: 06/22/23 09:14 Dose: 40 mg Famotidine (Famotidine 20 Mg Tablet) 20 mg PO BID [facility] Last Admin: 06/22/23 09:14 Dose: 20 mg Gabapentin (Gabapentin 300 Mg Capsule) 300 mg PO QPM [facility] Last Admin: 06/21/23 20:42 Dose: 300 mg Guaifenesin (Guaifenesin 600 Mg Tablet) 600 mg PO BID [facility] Last Admin: 06/22/23 09:13 Dose: 600 mg Insulin Glargine-yfgn (Insulin Glargine-Yfgn 300 Unit/3 Ml Pen) 20 unit SUBQ QPM [facility] Last Admin: 06/21/23 20:45 Dose: 20 unit Insulin Human Lispro (Insulin Lispro 300 Unit/3 Ml Pen) 1 - 9 unit SUBQ 0800,1200,1700,2100 PEREZ; Protocol Last Admin: 06/22/23 17:07 Dose: 7 unit Magnesium Oxide (Magnesium Oxide 400 Mg Tablet) 400 mg PO DAILYWM [facility] Last Admin: 06/22/23 08:00 Dose: 400 mg Metoprolol Tartrate (Metoprolol Tartrate 25 Mg Tablet) 25 mg PO BID [facility] Last Admin: 06/22/23 09:23 Dose: 25 mg Multivitamins/Minerals (Multivitamin W/Minerals Tablet) 1 tab PO DAILYWM [facility] Last Admin: 06/22/23 14:58 Dose: 1 tab Ondansetron HCl (Ondansetron 4 Mg/2 Ml Vial) 4 mg IVP Q6HR PRN PRN Reason: Nausea / Vomiting Last Admin: 06/10/23 18:08 Dose: 4 mg Sodium Chloride (Sodium Chloride Flush 0.9% 10 Ml Syringe) 10 ml IVP PRN PRN PRN Reason: NEEDED PER PROVIDER ORDERS Last Admin: 06/18/23 05:26 Dose: 10 ml Sodium Chloride (Sodium Chloride Flush 0.9% 10 Ml Syringe) 10 ml IVP 0100,0900,1700 [facility] Last Admin: 06/22/23 09:13 Dose: 10 ml Trazodone HCl (Trazodone 50 Mg Tablet) 25 mg PO QPM [facility] Last Admin: 06/21/23 20:43 Dose: 25 mg Gabapentin [Neurontin] 300 mg PO DAILY 06/09/23 Insulin Glargine,Hum.rec.anlog [Dannaglar Delorispen U-100] 52 units SUBQ HS 06/09/23 Liraglutide [Victoza 2-Pal] 1.2 mg SUBQ DAILY 06/09/23 Losartan Potassium 12.5 mg PO DAILY 06/09/23 Simvastatin [Zocor] 10 mg PO DAILY 06/09/23 Cholecalciferol [Vitamin D3] 400 unit PO DAILY 06/10/23 Tocopheryl [Vitamin E] 400 unit PO DAILY 06/10/23 Vitamin B Complex 1 each PO DAILY 06/10/23
[2023-06-22] MEDS: MAGNESIUM OXIDE 400 MG TABLET PO SCH (08:00)
[2023-06-22] MEDS: INSULIN LISPRO 300 UNIT/3 ML PEN SUBQ SCH ×4 (08:01→20:35)
[2023-06-22 08:02] LABS: CALCIUM 10.5 mg/dL (8.5-10.3); CREATININE 0.5 mg/dL (0.6-1.3); POTASSIUM 3.6 mmol/L (3.5-4.5)
[2023-06-22] MEDS: guaiFENesin 600 MG TABLET PO SCH ×2 (09:13→20:33)
[2023-06-22] MEDS: FAMOTIDINE 20 MG TABLET PO SCH ×2 (09:14→20:34)
[2023-06-22] MEDS: ENOXAPARIN 40 MG/0.4 ML SYRINGE SUBQ SCH (09:14)
[2023-06-22] MEDS: METOPROLOL TARTRATE 25 MG TABLET PO SCH ×2 (09:23→20:33)
[2023-06-22] MEDS: MULTIVITAMIN W/MINERALS TABLET PO SCH (14:58)
[2023-06-22] MEDS: GABAPENTIN 300 MG CAPSULE PO SCH (20:34)
[2023-06-22] MEDS: INSULIN GLARGINE-YFGN 300 UNIT/3 ML PEN SUBQ SCH (20:34)
[2023-06-22] MEDS: traZODone 50 MG TABLET PO SCH (22:53)
[2023-06-23] MEDS: SODIUM CHLORIDE FLUSH 0.9% 10 ML SYRINGE IVP SCH ×4 (00:46→23:48)
[2023-06-23 06:00] LABS: BASOPHILS # (AUTO) 0.1 10^3/uL (0.0-0.1); BASOPHILS % (AUTO) 1.1 %; EOSINOPHILS # (AUTO) 0.1 10^3/uL (0.0-0.7); EOSINOPHILS % (AUTO) 2.5 %; HCT - HEMATOCRIT 39.7 % (37.0-47.0); HGB - HEMOGLOBIN 11.3 g/dL (12.0-16.0); LYMPHOCYTES # (AUTO) 2.3 10^3/uL (1.5-3.5); LYMPHOCYTES % (AUTO) 40.8 %; MEAN CORPUSCULAR HEMOGLOBIN 25.2 pg (27.0-31.0); MEAN CORPUSCULAR HGB CONC 28.5 g/dL (32.0-36.0); MEAN CORPUSCULAR VOLUME 88.6 fL (81.0-99.0); MEAN PLATELET VOLUME 10.3 fL (7.9-10.8); MONOCYTES # (AUTO) 0.6 10^3/uL (0.0-1.0); MONOCYTES % (AUTO) 10.6 %; NEUTROPHILS # (AUTO) 2.5 10^3/uL (1.5-6.6); NEUTROPHILS % (AUTO) 44.8 %; PLT - PLATELET COUNT 221 10^3/uL (130-450); RED BLOOD COUNT 4.48 10^6/uL (4.20-5.40); RED CELL DISTRIBUTION WIDTH 15.6 % (12.0-15.0); WHITE BLOOD COUNT 5.6 x10^3/uL (4.8-10.8)
[2023-06-23 06:16] LABS: CALCIUM 10.3 mg/dL (8.5-10.3); CREATININE 0.4 mg/dL (0.6-1.3); POTASSIUM 3.8 mmol/L (3.5-4.5)
[2023-06-23] MEDS: INSULIN LISPRO 300 UNIT/3 ML PEN SUBQ SCH ×4 (07:52→20:56)
[2023-06-23] MEDS: FAMOTIDINE 20 MG TABLET PO SCH ×2 (08:17→20:55)
[2023-06-23] MEDS: METOPROLOL TARTRATE 25 MG TABLET PO SCH ×2 (08:17→20:56)
[2023-06-23] MEDS: MAGNESIUM OXIDE 400 MG TABLET PO SCH (08:18)
[2023-06-23] MEDS: MULTIVITAMIN W/MINERALS TABLET PO SCH (08:18)
[2023-06-23] MEDS: guaiFENesin 600 MG TABLET PO SCH ×2 (08:19→20:55)
[2023-06-23] MEDS: ENOXAPARIN 40 MG/0.4 ML SYRINGE SUBQ SCH (08:27)
--- NOTE | 2023-06-23 13:11 | PROVIDER PROGRESS NOTE ---
Assessment/Plan - Problem List (1) Acute respiratory failure with hypoxia and hypercarbia Assessment/Plan: Oxygen need is fluctuated between 5 L to 10 L, to maintain oxygen saturation over 92% Plan: If patient oxygen needs is around 5 L, patient can be discharged to a short-term rehab, this plan has been in agreement with patient mom and sister If patient is worsening, family may consider hospice care (2) CO2 narcosis Assessment/Plan: Mental status can fluctuate depends on the status of CO2 retention Evening and morning are challenging, can keep moving her oxygen oxy mask from time to time, causing desaturation and turning blue, If patient is fully awake, patient can feed herself, can carry conversation (3) Myotonic dystrophy Conclusion/Plan: She has weakness even in her speech. I had suspected her respiratory muscle weakness was from her Myotonic Dystrophy causing to hypoxia & hypercarbia also Plan: Supportive care (4) New onset a-fib Assessment/Plan: Still in A-fib Not a candidate for anticoagulant due to poor cognitive function and poor insight of her condition Plan: Cont on metoprolol for rate control (5) DM type 2 (diabetes mellitus, type 2) Assessment/Plan: Plan: On DM diet, insulin sliding scale Hypoglycemia precaution (6) Pulmonary edema Assessment/Plan: Euvolemic now Plan: MWE are monitoring her off diuretics - Current Meds Current Meds: Current Medications Generic Name Dose Route Start Last Admin Trade Name Freq PRN Reason Stop Dose Admin Acetaminophen 650 mg 06/09/23 13:50 06/21/23 16:27 Acetaminophen 325 Mg Tablet PO 650 mg Q4HR PRN Administration Pain 1 to 4, or Fever Enoxaparin Sodium 40 mg 06/10/23 09:00 06/23/23 08:27 Enoxaparin 40 Mg/0.4 Ml Syringe SUBQ 40 mg DAILY PEREZ Administration Famotidine 20 mg 06/18/23 21:00 06/23/23 08:17 Famotidine 20 Mg Tablet PO 20 mg BID PEREZ Administration Gabapentin 300 mg 06/15/23 02:25 06/22/23 20:34 Gabapentin 300 Mg Capsule PO 300 mg QPM PEREZ Administration Guaifenesin 600 mg 06/12/23 14:00 06/23/23 08:19 Guaifenesin 600 Mg Tablet PO 600 mg BID PEREZ Administration Insulin Glargine-yfgn 20 unit 06/15/23 21:00 06/22/23 20:34 Insulin Glargine-Yfgn 300 Unit/3 Ml Pen SUBQ 20 unit QPM PEREZ Administration Insulin Human Lispro 1 - 9 unit 06/10/23 17:21 06/23/23 11:52 Insulin Lispro 300 Unit/3 Ml Pen SUBQ 1 unit 0800,1200,1700,2100 PEREZ Administration Protocol Magnesium Oxide 400 mg 06/17/23 09:00 06/23/23 08:18 Magnesium Oxide 400 Mg Tablet PO 400 mg DAILYWM PEREZ Administration Metoprolol Tartrate 25 mg 06/19/23 21:00 06/23/23 08:17 Metoprolol Tartrate 25 Mg Tablet PO 25 mg BID PEREZ Administration Multivitamins/Minerals 1 tab 06/22/23 14:00 06/23/23 08:18 Multivitamin W/Minerals Tablet PO 1 tab DAILYWM PEREZ Administration Ondansetron HCl 4 mg 06/09/23 13:50 06/10/23 18:08 Ondansetron 4 Mg/2 Ml Vial IVP 4 mg Q6HR PRN Administration Nausea / Vomiting Sodium Chloride 10 ml 06/09/23 13:50 06/18/23 05:26 Sodium Chloride Flush 0.9% 10 Ml Syringe IVP 10 ml PRN PRN Administration NEEDED PER PROVIDER ORDERS Sodium Chloride 10 ml 06/09/23 17:00 06/23/23 08:19 Sodium Chloride Flush 0.9% 10 Ml Syringe IVP 10 ml 0100,0900,1700 PEREZ Administration Trazodone HCl 25 mg 06/16/23 21:00 06/22/23 22:53 Trazodone 50 Mg Tablet PO Not Given QPM PEREZ - Lab Result Fish Bone Diagrams: 06/23/23 05:20 06/23/23 05:20 Subjective - Subjective Patient Reports: Resting Comfortably Nursing Reports: Other (She mostly takes naps but is able to sit upright in a chair/recliner) Objective Vital Signs: Vital Signs - 24 hr 06/22/23 06/22/23 06/22/23 16:45 17:00 17:15 Temperature 36.2 C L Heart Rate [ Brachial] Heart Rate [ 98 Monitoring electrodes] Respiratory 18 Rate Blood Pressure Blood Pressure 121/64 [Left Brachial artery] Blood Pressure [Right Brachial artery] O2 Saturation 96 96 94 If not protocol 10 10 6 : Oxygen Flow, liters/minute 06/22/23 06/22/23 06/22/23 19:15 20:33 20:35 Temperature Heart Rate [ Brachial] Heart Rate [ Monitoring electrodes] Respiratory Rate Blood Pressure 107/55 L Blood Pressure [Left Brachial artery] Blood Pressure [Right Brachial artery] O2 Saturation 92 If not protocol 6 6 : Oxygen Flow, liters/minute 06/22/23 06/23/23 06/23/23 23:45 00:04 00:27 Temperature 36.1 C L Heart Rate [ Brachial] Heart Rate [ 100 Monitoring electrodes] Respiratory 18 Rate Blood Pressure Blood Pressure 93/50 L [Left Brachial artery] Blood Pressure [Right Brachial artery] O2 Saturation 91 L 93 91 L If not protocol 6 6 6 : Oxygen Flow, liters/minute 06/23/23 06/23/23 06/23/23 07:28 08:17 10:00 Temperature 36.9 C Heart Rate [ 87 Brachial] Heart Rate [ Monitoring electrodes] Respiratory 18 Rate Blood Pressure 124/54 L Blood Pressure [Left Brachial artery] Blood Pressure 124/54 L [Right Brachial artery] O2 Saturation 92 If not protocol 6 5 : Oxygen Flow, liters/minute Oxygen O2 Source Oxymask I&O (Last 24 Hrs): Intake and Output Totals x24h 06/21/23 06/22/23 06/23/23 23:59 23:59 23:59 Intake Total 780 1080 120 Output Total 800 1375 275 Balance -20 -295 -155 General: Alert, No acute distress HEENT: Mucous membr. moist/pink Neck: Supple Neuro: Non Focal (Has generalized weakness), Other (Unintelligible speech) Cardiovascular: Other (Irreg) Respiratory: No respiratory distress Abdomen: Soft Extremities: No clubbing, No edema, No tenderness/swelling - Results Results: Laboratory Results WBC 5.6 x10^3/uL (4.8-10.8) 06/23/23 05:20 RBC 4.48 10^6/uL (4.20-5.40) 06/23/23 05:20 Hgb 11.3 g/dL (12.0-16.0) L 06/23/23 05:20 Hct 39.7 % (37.0-47.0) 06/23/23 05:20 MCV 88.6 fL (81.0-99.0) 06/23/23 05:20 MCH 25.2 pg (27.0-31.0) L 06/23/23 05:20 MCHC 28.5 g/dL (32.0-36.0) L 06/23/23 05:20 RDW 15.6 % (12.0-15.0) H 06/23/23 05:20 Plt Count 221 10^3/uL (130-450) 06/23/23 05:20 MPV 10.3 fL (7.9-10.8) 06/23/23 05:20 Neut # (Auto) 2.5 10^3/uL (1.5-6.6) 06/23/23 05:20 Lymph # (Auto) 2.3 10^3/uL (1.5-3.5) 06/23/23 05:20 [place] # (Auto) 0.6 10^3/uL (0.0-1.0) 06/23/23 05:20 Eos # (Auto) 0.1 10^3/uL (0.0-0.7) 06/23/23 05:20 Baso # (Auto) 0.1 10^3/uL (0.0-0.1) 06/23/23 05:20 Absolute Nucleated RBC 0.00 x10^3/uL 06/23/23 05:20 Nucleated RBC % 0.0 /100WBC 06/23/23 05:20 Manual Slide Review Indicated 06/22/23 07:27 WBC Morphology NORMAL APPEARANCE (NORMAL) 06/13/23 05:25 Platelet Estimate NORMAL (130-450,000) (NORMAL) 06/22/23 07:27 Platelet Morphology NORMAL APPEARANCE (NORMAL) 06/22/23 07:27 RBC Morph Micro Appear 1+ HYPOCHROMASIA (NORMAL) 06/22/23 07:27 Bld Gas Analysis Time 0415 06/19/23 04:05 Sample Site RIGHT RADIAL 06/19/23 04:05 ABG pH 7.30 (7.35-7.45) L 06/19/23 04:05 ABG pCO2 87 mmHg (34-45) H* 06/19/23 04:05 ABG pO2 70 mmHg (80-100) L 06/19/23 04:05 ABG HCO3 42.1 mmol/L (22.0-26.0) H 06/19/23 04:05 ABG Total CO2 44.8 MMOL/L (21.0-29.0) H* 06/19/23 04:05 ABG O2 Saturation 92 % (94-98) L 06/19/23 04:05 ABG Base Excess 12.4 mmol/L (-2.0-3.0) H 06/19/23 04:05 [place] Test POSITIVE 06/19/23 04:05 VBG pH 7.348 (7.31-7.41) 06/18/23 05:47 Ionized Calcium 1.29 mmol/L (1.15-1.33) 06/18/23 05:47 Respiration Rate 16 b/min 06/14/23 15:30 O2 Delivery Device NON REBREATHER MASK 06/19/23 04:05 O2 Liters/Min 15.00 LPM 06/19/23 04:05 Vent Mode SYNCHRONOUS/TIMES 06/14/23 15:30 FiO2 50.00 06/14/23 15:30 EPAP 6 cmH2O 06/14/23 15:30 IPAP 14 cmH2O 06/14/23 15:30 Sodium 144 mmol/L (135-145) 06/23/23 05:20 Potassium 3.8 mmol/L (3.5-4.5) 06/23/23 05:20 Chloride 99 mmol/L (101-111) L 06/23/23 05:20 Carbon Dioxide 43 mmol/L (21-32) H* 06/23/23 05:20 Anion Gap 2.0 (6-13) L 06/23/23 05:20 BUN 7 mg/dL (6-20) 06/23/23 05:20 Creatinine 0.4 mg/dL (0.6-1.3) L 06/23/23 05:20 Estimated GFR (MDRD) 167 (>89) 06/23/23 05:20 Glucose 138 mg/dL (74-104) H 06/23/23 05:20 POC Whole Bld Glucose 142 mg/dL (70 - 100) H 06/23/23 10:56 Estimat Average Glucose 226 mg/dL (70-100) H 06/10/23 06:12 Hemoglobin A1c % 9.5 % (4.27-6.07) H 06/10/23 06:12 Calcium 10.3 mg/dL (8.5-10.3) 06/23/23 05:20 Phosphorus 3.3 mg/dL (2.5-5.0) 06/18/23 05:47 Magnesium 1.8 mg/dL (1.7-2.3) 06/18/23 05:47 Total Bilirubin 0.9 mg/dL (0.2-1.0) 06/09/23 09:53 AST 13 IU/L (10-42) 06/09/23 09:53 ALT 10 IU/L (10-60) 06/09/23 09:53 Alkaline Phosphatase 76 IU/L (42-121) 06/09/23 09:53 Troponin I High Sens 36.4 ng/L (2.3-14.8) H* 06/11/23 11:31 B-Natriuretic Peptide 60 pg/mL (5-100) 06/20/23 06:06 Total Protein 6.4 g/dL (6.4-8.9) 06/09/23 09:53 Albumin 3.9 g/dL (3.2-5.5) 06/09/23 09:53 Globulin 2.5 g/dL (2.1-4.2) 06/09/23 09:53 Albumin/Globulin Ratio 1.6 (1.0-2.2) 06/09/23 09:53 TSH 1.74 uIU/mL (0.34-5.60) 06/10/23 06:12 Urine Color DARK YELLOW 06/09/23 12:25 Urine Clarity CLOUDY (CLEAR) 06/09/23 12:25 Urine pH 6.0 PH (5.0-7.5) 06/09/23 12:25 Ur Specific [place] 1.025 (1.002-1.030) 06/09/23 12:25 Urine Protein TRACE mg/dL (NEGATIVE) 06/09/23 12:25 Urine Glucose (UA) 250 mg/dL (NEGATIVE) H 06/09/23 12:25 Urine Ketones NEGATIVE mg/dL (NEGATIVE) 06/09/23 12:25 Urine Occult Blood LARGE (NEGATIVE) H 06/09/23 12:25 Urine Nitrite NEGATIVE (NEGATIVE) 06/09/23 12:25 Urine Bilirubin NEGATIVE (NEGATIVE) 06/09/23 12:25 Urine Urobilinogen 0.2 (NORMAL) E.U./dL (NORMAL) 06/09/23 12:25 Ur Leukocyte Esterase NEGATIVE (NEGATIVE) 06/09/23 12:25 Urine RBC TNTC /HPF (0-5) H 06/09/23 12:25 Urine WBC 4-5 /HPF (0-5) 06/09/23 12:25 Ur Squamous Epith Cells MOD Squamous (<= Few) H 06/09/23 12:25 Urine Crystals >50 Calcium Oxalate /LPF 06/09/23 12:25 Urine Bacteria Moderate /HPF (None Seen) H 06/09/23 12:25 Urine Mucus Few Strands 06/09/23 12:25 Ur Microscopic Review INDICATED 06/09/23 12:25 Urine Culture Comments NOT INDICATED 06/09/23 12:25 Nasal Adenovirus (PCR) NOT DETECTED 06/09/23 09:50 Nasal B. parapertussis DNA (PCR) NOT DETECTED 06/09/23 09:50 Nasal Coronavir 229E PCR NOT DETECTED 06/09/23 09:50 Nasal Coronavir HKU1 PCR NOT DETECTED 06/09/23 09:50 Nasal Coronavir NL63 PCR NOT DETECTED 06/09/23 09:50 Nasal Coronavir OC43 PCR NOT DETECTED 06/09/23 09:50 Nasal Enterovir/Rhinovir PCR NOT DETECTED 06/09/23 09:50 Nasal Influenza B PCR NOT DETECTED 06/09/23 09:50 Nasal Influenza A PCR NOT DETECTED 06/09/23 09:50 Nasal Parainfluen 1 PCR NOT DETECTED 06/09/23 09:50 Nasal Parainfluen 2 PCR NOT DETECTED 06/09/23 09:50 Nasal Parainfluen 3 PCR NOT DETECTED 06/09/23 09:50 Nasal Parainfluen 4 PCR NOT DETECTED 06/09/23 09:50 Nasal RSV (PCR) NOT DETECTED 06/09/23 09:50 Nasal Screen MRSA (PCR) NEGATIVE (NEGATIVE) 06/11/23 05:00 Nasal B.pertussis DNA PCR NOT DETECTED 06/09/23 09:50 Nasal C.pneumoniae (PCR) NOT DETECTED 06/09/23 09:50 Amish Human Metapneumo PCR NOT DETECTED 06/09/23 09:50 Nasal M.pneumoniae (PCR) NOT DETECTED 06/09/23 09:50 Nasal SARS-CoV-2 (PCR) NOT DETECTED 06/09/23 09:50 Last Dose Date UNKNOWN 06/13/23 05:25 Last Dose Time UNKNOWN 06/13/23 05:25 Vancomycin Peak 43.7 ug/mL (20.0-40.0) H 06/11/23 21:00 Vancomycin Trough 21.6 ug/mL 06/13/23 05:25 Sepsis Event Note (H) - Evaluation Current Stage of Sepsis: Ruled out
[2023-06-23] MEDS: GABAPENTIN 300 MG CAPSULE PO SCH (20:55)
[2023-06-23] MEDS: INSULIN GLARGINE-YFGN 300 UNIT/3 ML PEN SUBQ SCH (20:56)
[2023-06-23] MEDS: traZODone 50 MG TABLET PO SCH (20:56)
[2023-06-24] MEDS: METOPROLOL TARTRATE 25 MG TABLET PO SCH ×2 (08:03→20:59)
[2023-06-24] MEDS: guaiFENesin 600 MG TABLET PO SCH ×2 (08:03→20:59)
[2023-06-24] MEDS: MULTIVITAMIN W/MINERALS TABLET PO SCH (08:03)
[2023-06-24] MEDS: INSULIN LISPRO 300 UNIT/3 ML PEN SUBQ SCH ×4 (08:06→21:00)
[2023-06-24] MEDS: INSULIN GLARGINE-YFGN 300 UNIT/3 ML PEN SUBQ SCH ×2 (08:07→20:59)
[2023-06-24] MEDS: MAGNESIUM OXIDE 400 MG TABLET PO SCH (08:08)
[2023-06-24] MEDS: SODIUM CHLORIDE FLUSH 0.9% 10 ML SYRINGE IVP SCH (08:14)
[2023-06-24] MEDS: ENOXAPARIN 40 MG/0.4 ML SYRINGE SUBQ SCH (08:14)
[2023-06-24] MEDS: FAMOTIDINE 20 MG TABLET PO SCH ×2 (08:14→20:59)
--- NOTE | 2023-06-24 12:55 | PROVIDER PROGRESS NOTE ---
Subjective - Subjective Pt reports feeling: No change (She was able to be off BiPAP to eat. She is up in a chair and wearing high flow nasal cannula alt with BIPAP mask. While on n.c. she is nodding off, lethargic, napping.)) Objective - Vital Signs/Intake & Output Intake & Output: Intake & Output 06/21/23 06/22/23 06/23/23 06/24/23 23:59 23:59 23:59 23:59 Intake Total 780 1080 1095 860 Output Total 800 1375 775 425 Balance -20 -295 320 435 - Objective General Appearance: positive: Lethargic Eyes Bilateral: positive: Normal inspection ENT: positive: No signs of dehydration, Other (wearing O2 via HiFlo n.c.) Neck: positive: Nml inspection (Obese) Respiratory: positive: No respiratory distress, Breath sounds nml (diminished air mvm, no wheezing or rales) Cardiovascular: positive: No murmur (Distant heart sounds due to obesity) Abdomen: positive: Non-tender, Other (Obese) Skin: positive: Warm, Dry Extremities: positive: Non-tender, Other (2+ edema to above knees) Neurologic/Psychiatric: positive: Disoriented to person, Disoriented to place, Disoriented to time, Other (Lethargic, awakens to eat, moves all extrem, answers with short sentences and falls asleep while talking) - Lab Results Fish Bones: 06/23/23 05:20 06/23/23 05:20 Other Labs: Lab Results x24hrs 06/24/23 06/24/23 06/23/23 Range/Units 11:21 07:44 20:54 POC Whole Bld Glucose 236 H 177 H 130 H (70 - 100) mg/dL 06/23/23 Range/Units 16:38 POC Whole Bld Glucose 212 H (70 - 100) mg/dL Sepsis Event Note (H) - Evaluation Current Stage of Sepsis: Ruled out Assessment/Plan - Problem List (1) Acute respiratory failure with hypoxia and hypercarbia Impression: (1) Acute respiratory failure with hypoxia and hypercarbia Impression: Patient had a low O2 sat on the scene measured by EMS and was 85% on room air in the ER. The etiology was suspected to be her pulmonary edema. Three days into her admission, I learned she has she sleep apnea and was prescribed a CPAP which she does not use. 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 Then she had resp failure with resp acidosis and CO2 narcosis sev days ago, and now needs BIPAP, is in the ICU Plan: Cont BIPAP and supplemental O2, titrate down to room air when possible. Target O2 saturation will be 92% Avoid excessive FIO2 to prevent suppression of her hypoxic drive to ventilate She may need a BIPAP machine or Trilogy machine for home after discharge I anticipate a long recovery from this resp set back for this pt, because of her Myotonic Dystrophy, and she wants no intubation (2) CO2 narcosis Impression: Her ABGs showed severe CO2 retention, the highest PCO2 was 147. She becomes more somnolent and is noticably confused, when her CO2 is rising. Giving sleeping meds has caused hypersomnilencre the next goldie, likely from worse ventilation & CO2 retention. Her obtundation is up and down Plan: BIPAP overnight each night and when needed for naps during daytime Encourage deep breaths when awake and IS when awake She may need a BIPAP machine or Trilogy machine for home after discharge, RT is aware. (3) Acute respiratory acidosis Impression: She was moved into the ICU several days ago and BIPAP was started when she had pH 7.2 and PCO2 147. ABG shows pH 7.4 with PCO2 60 and PO2 60 She is on BiPAP at night and for naps. Her settings are being adjusted Plan: Remain in ICU on BIPAP at night and for naps. (4) Myotonic dystrophy Conclusion/Plan: As per Hx. However, she claimed she can still drive a car without any extra equipment. She had evidence of weakness even in her speech, when I first met her. 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 Plan: Cont to hold her statin in case it is adding to muscle weakness (5) Pulmonary edema Conclusion/Plan: The patient did notice [place] LE[place]N and orthopnea and leg edema, but did not seek medical attention. On exam she has had slow improvement of her anasarca of the legs, they are not as taught, but still has pitting edema to thighs. Her Echocardiogram was done 06/10 and showed preserved LVEF and R heart enlargement plus engorged IVC. Therefore she has PFpEF. Plan: Cont twice daily IV Lasix Follow I's and O's, cont Alegre monitoring, monitor daily weights Cont a low-salt diet, when she eats taking breaks off BIPAP Follow her electrolytes and magnesium daily, replace if low Monitor on telemetry for dysrhythmias (6) New onset a-fib Conclusion/Plan: This was seen at admission & patient denied feeling palpitations . She said she has never been told she has atrial fib. Her EKG showed atrial fib but the heart rate was not extremely rapid. VS were reviewed. Her HR is running 90-100 on new B-corey. Troponins have ruled out ACS as the cause Her TSH ruled out hyperthyroidism as the cause Her Echo showed a preserved ejection fraction. She has diastolic heart failure however. She has a CHADSsVasc2 score of 3 (DM, CHF, Female), therefore a DOAC is considered beneficial per guidelines. 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 Plan: Cont to monitor on telemetry Cont Coreg 6.25 bid for better rate control I need to discuss the risks and benefits of being on an anticoagulant with pt and also with her mother, since I can see that the pt has some cognitive impairment (unable to give detailed answers, is sleepy). (7) Left bundle branch block Conclusion/Plan: The finding of LBBB could be due to Myotonic Dystrophy, which affects the conduction system of the heart. Plan: As in #2 (8) DM type 2 (diabetes mellitus, type 2) Conclusion/Plan: As per Hx Her A1c came back at 9.2, indicating poor glu control Her glu are 200-300's Plan: Cont a diabetic diet, fingerstick glucose checks, sliding scale insulin, hypoglycemia protocol I have her on BID long acting Insulin, nutritional Insulin plus sliding scale. Adjusting Long acting agent
--- NOTE | 2023-06-24 15:06 | PROVIDER PROGRESS NOTE ---
Assessment/Plan - Problem List (1) Acute respiratory failure with hypoxia and hypercarbia Assessment/Plan: Oxygen need is fluctuated between 5 L to 13 L, to maintain oxygen saturation over 92% Plan: If patient oxygen needs is around 5 L, patient can be discharged to a short-term rehab, this plan has been in agreement with patient mom and sister. If patient is worsening, family may consider hospice care. 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 I had suspected her respiratory muscle weakness was from her Myotonic Dystrophy causing to hypoxia & hypercarbia also Plan: Supportive care Will also determine if she would be a candidiate for LTac (4) New onset a-fib Assessment/Plan: Still in A-fib Not a candidate for anticoagulant due to poor cognitive function and poor i nsight of her condition Plan: Cont on metoprolol for rate control (5) DM type 2 (diabetes mellitus, type 2) Assessment/Plan: Plan: On DM diet, insulin sliding scale Hypoglycemia precaution (6) Pulmonary edema Assessment/Plan: Resolved. Euvolemic now Plan: Cont monitoring her off diuretics - Current Meds Current Meds: Current Medications Generic Name Dose Route Start Last Admin Trade Name Freq PRN Reason Stop Dose Admin Acetaminophen 650 mg 06/09/23 13:50 06/21/23 16:27 Acetaminophen 325 Mg Tablet PO 650 mg Q4HR PRN Administration Pain 1 to 4, or Fever Enoxaparin Sodium 40 mg 06/10/23 09:00 06/24/23 08:14 Enoxaparin 40 Mg/0.4 Ml Syringe SUBQ 40 mg DAILY PEREZ Administration Famotidine 20 mg 06/18/23 21:00 06/24/23 08:14 Famotidine 20 Mg Tablet PO 20 mg BID PEREZ Administration Gabapentin 300 mg 06/15/23 02:25 06/23/23 20:55 Gabapentin 300 Mg Capsule PO 300 mg QPM PEREZ Administration Guaifenesin 600 mg 06/12/23 14:00 06/24/23 08:03 Guaifenesin 600 Mg Tablet PO 600 mg BID PEREZ Administration Insulin Glargine-yfgn 20 unit 06/15/23 21:00 06/23/23 20:56 Insulin Glargine-Yfgn 300 Unit/3 Ml Pen SUBQ 20 unit QPM PEREZ Administration Insulin Glargine-yfgn 5 unit 06/24/23 09:00 06/24/23 08:07 Insulin Glargine-Yfgn 300 Unit/3 Ml Pen SUBQ 5 unit DAILY PEREZ Administration Insulin Human Lispro 1 - 9 unit 06/10/23 17:21 06/24/23 11:50 Insulin Lispro 300 Unit/3 Ml Pen SUBQ 5 unit 0800,1200,1700,2100 PEREZ Administration Protocol Magnesium Oxide 400 mg 06/17/23 09:00 06/24/23 08:08 Magnesium Oxide 400 Mg Tablet PO 400 mg DAILYWM PEREZ Administration Metoprolol Tartrate 25 mg 06/19/23 21:00 06/24/23 08:03 Metoprolol Tartrate 25 Mg Tablet PO 25 mg BID PEREZ Administration Multivitamins/Minerals 1 tab 06/22/23 14:00 06/24/23 08:03 Multivitamin W/Minerals Tablet PO 1 tab DAILYWM PEREZ Administration Trazodone HCl 25 mg 06/16/23 21:00 06/23/23 20:56 Trazodone 50 Mg Tablet PO Not Given QPM PEREZ - Lab Result Fish Bone Diagrams: 06/23/23 05:20 06/23/23 05:20 - Additional Planning My Orders: My Active Orders 06/24/23 09:00 Insulin Glargine-Yfgn [Semglee] 5 unit SUBQ DAILY 06/24/23 10:30 IV Discontinuation [RC] .ONCE 06/25/23 05:00 BMP - BASIC METABOLIC PANEL [CHEM] DAILYLAB CBC - COMP BLD CT W/AUTO DIFF [HEME] DAILYLAB MAGNESIUM [CHEM] DAILYLAB Subjective - Subjective Patient Reports: Resting Comfortably, No Complaints Objective Vital Signs: Vital Signs - 24 hr 06/23/23 06/23/23 06/24/23 22:00 22:32 00:45 Temperature 36.5 C 37.3 C Heart Rate [ 72 104 H Brachial] Respiratory 18 16 Rate Blood Pressure Blood Pressure 126/31 L 114/45 L [Right Brachial artery] O2 Saturation 93 94 If not protocol 4 8 13.5 : Oxygen Flow, liters/minute 06/24/23 06/24/23 08:03 13:38 Temperature 36.3 C L Heart Rate [ 85 Brachial] Respiratory 16 Rate Blood Pressure 114/62 Blood Pressure 83/53 L [Right Brachial artery] O2 Saturation 90 L If not protocol 5 : Oxygen Flow, liters/minute Oxygen O2 Source Nasal cannula I&O (Last 24 Hrs): Intake and Output Totals x24h 06/22/23 06/23/23 06/24/23 23:59 23:59 23:59 Intake Total 1080 1095 860 Output Total 1375 775 425 Balance -295 320 435 General: Alert, Oriented x3 HEENT: EOMI, Mucous membr. moist/pink, Other (On O2 per n.c.) Neck: Supple Neuro: Alert, Non Focal, Other (Weak, quiet voice) Cardiovascular: No murmurs Respiratory: No respiratory distress Abdomen: No tenderness Extremities: No clubbing, No edema - Results Results: Laboratory Results WBC 5.6 x10^3/uL (4.8-10.8) 06/23/23 05:20 RBC 4.48 10^6/uL (4.20-5.40) 06/23/23 05:20 Hgb 11.3 g/dL (12.0-16.0) L 06/23/23 05:20 Hct 39.7 % (37.0-47.0) 06/23/23 05:20 MCV 88.6 fL (81.0-99.0) 06/23/23 05:20 MCH 25.2 pg (27.0-31.0) L 06/23/23 05:20 MCHC 28.5 g/dL (32.0-36.0) L 06/23/23 05:20 RDW 15.6 % (12.0-15.0) H 06/23/23 05:20 Plt Count 221 10^3/uL (130-450) 06/23/23 05:20 MPV 10.3 fL (7.9-10.8) 06/23/23 05:20 Neut # (Auto) 2.5 10^3/uL (1.5-6.6) 06/23/23 05:20 Lymph # (Auto) 2.3 10^3/uL (1.5-3.5) 06/23/23 05:20 [place] # (Auto) 0.6 10^3/uL (0.0-1.0) 06/23/23 05:20 Eos # (Auto) 0.1 10^3/uL (0.0-0.7) 06/23/23 05:20 Baso # (Auto) 0.1 10^3/uL (0.0-0.1) 06/23/23 05:20 Absolute Nucleated RBC 0.00 x10^3/uL 06/23/23 05:20 Nucleated RBC % 0.0 /100WBC 06/23/23 05:20 Manual Slide Review Indicated 06/22/23 07:27 WBC Morphology NORMAL APPEARANCE (NORMAL) 06/13/23 05:25 Platelet Estimate NORMAL (130-450,000) (NORMAL) 06/22/23 07:27 Platelet Morphology NORMAL APPEARANCE (NORMAL) 06/22/23 07:27 RBC Morph Micro Appear 1+ HYPOCHROMASIA (NORMAL) 06/22/23 07:27 Bld Gas Analysis Time 0415 06/19/23 04:05 Sample Site RIGHT RADIAL 06/19/23 04:05 ABG pH 7.30 (7.35-7.45) L 06/19/23 04:05 ABG pCO2 87 mmHg (34-45) H* 06/19/23 04:05 ABG pO2 70 mmHg (80-100) L 06/19/23 04:05 ABG HCO3 42.1 mmol/L (22.0-26.0) H 06/19/23 04:05 ABG Total CO2 44.8 MMOL/L (21.0-29.0) H* 06/19/23 04:05 ABG O2 Saturation 92 % (94-98) L 06/19/23 04:05 ABG Base Excess 12.4 mmol/L (-2.0-3.0) H 06/19/23 04:05 [place] Test POSITIVE 06/19/23 04:05 VBG pH 7.348 (7.31-7.41) 06/18/23 05:47 Ionized Calcium 1.29 mmol/L (1.15-1.33) 06/18/23 05:47 Respiration Rate 16 b/min 06/14/23 15:30 O2 Delivery Device NON REBREATHER MASK 06/19/23 04:05 O2 Liters/Min 15.00 LPM 06/19/23 04:05 Vent Mode SYNCHRONOUS/TIMES 06/14/23 15:30 FiO2 50.00 06/14/23 15:30 EPAP 6 cmH2O 06/14/23 15:30 IPAP 14 cmH2O 06/14/23 15:30 Sodium 144 mmol/L (135-145) 06/23/23 05:20 Potassium 3.8 mmol/L (3.5-4.5) 06/23/23 05:20 Chloride 99 mmol/L (101-111) L 06/23/23 05:20 Carbon Dioxide 43 mmol/L (21-32) H* 06/23/23 05:20 Anion Gap 2.0 (6-13) L 06/23/23 05:20 BUN 7 mg/dL (6-20) 06/23/23 05:20 Creatinine 0.4 mg/dL (0.6-1.3) L 06/23/23 05:20 Estimated GFR (MDRD) 167 (>89) 06/23/23 05:20 Glucose 138 mg/dL (74-104) H 06/23/23 05:20 POC Whole Bld Glucose 236 mg/dL (70 - 100) H 06/24/23 11:21 Estimat Average Glucose 226 mg/dL (70-100) H 06/10/23 06:12 Hemoglobin A1c % 9.5 % (4.27-6.07) H 06/10/23 06:12 Calcium 10.3 mg/dL (8.5-10.3) 06/23/23 05:20 Phosphorus 3.3 mg/dL (2.5-5.0) 06/18/23 05:47 Magnesium 1.8 mg/dL (1.7-2.3) 06/18/23 05:47 Total Bilirubin 0.9 mg/dL (0.2-1.0) 06/09/23 09:53 AST 13 IU/L (10-42) 06/09/23 09:53 ALT 10 IU/L (10-60) 06/09/23 09:53 Alkaline Phosphatase 76 IU/L (42-121) 06/09/23 09:53 Troponin I High Sens 36.4 ng/L (2.3-14.8) H* 06/11/23 11:31 B-Natriuretic Peptide 60 pg/mL (5-100) 06/20/23 06:06 Total Protein 6.4 g/dL (6.4-8.9) 06/09/23 09:53 Albumin 3.9 g/dL (3.2-5.5) 06/09/23 09:53 Globulin 2.5 g/dL (2.1-4.2) 06/09/23 09:53 Albumin/Globulin Ratio 1.6 (1.0-2.2) 06/09/23 09:53 TSH 1.74 uIU/mL (0.34-5.60) 06/10/23 06:12 Urine Color DARK YELLOW 06/09/23 12:25 Urine Clarity CLOUDY (CLEAR) 06/09/23 12:25 Urine pH 6.0 PH (5.0-7.5) 06/09/23 12:25 Ur Specific [place] 1.025 (1.002-1.030) 06/09/23 12:25 Urine Protein TRACE mg/dL (NEGATIVE) 06/09/23 12:25 Urine Glucose (UA) 250 mg/dL (NEGATIVE) H 06/09/23 12:25 Urine Ketones NEGATIVE mg/dL (NEGATIVE) 06/09/23 12:25 Urine Occult Blood LARGE (NEGATIVE) H 06/09/23 12:25 Urine Nitrite NEGATIVE (NEGATIVE) 06/09/23 12:25 Urine Bilirubin NEGATIVE (NEGATIVE) 06/09/23 12:25 Urine Urobilinogen 0.2 (NORMAL) E.U./dL (NORMAL) 06/09/23 12:25 Ur Leukocyte Esterase NEGATIVE (NEGATIVE) 06/09/23 12:25 Urine RBC TNTC /HPF (0-5) H 06/09/23 12:25 Urine WBC 4-5 /HPF (0-5) 06/09/23 12:25 Ur Squamous Epith Cells MOD Squamous (<= Few) H 06/09/23 12:25 Urine Crystals >50 Calcium Oxalate /LPF 06/09/23 12:25 Urine Bacteria Moderate /HPF (None Seen) H 06/09/23 12:25 Urine Mucus Few Strands 06/09/23 12:25 Ur Microscopic Review INDICATED 06/09/23 12:25 Urine Culture Comments NOT INDICATED 06/09/23 12:25 Nasal Adenovirus (PCR) NOT DETECTED 06/09/23 09:50 Nasal B. parapertussis DNA (PCR) NOT DETECTED 06/09/23 09:50 Nasal Coronavir 229E PCR NOT DETECTED 06/09/23 09:50 Nasal Coronavir HKU1 PCR NOT DETECTED 06/09/23 09:50 Nasal Coronavir NL63 PCR NOT DETECTED 06/09/23 09:50 Nasal Coronavir OC43 PCR NOT DETECTED 06/09/23 09:50 Nasal Enterovir/Rhinovir PCR NOT DETECTED 06/09/23 09:50 Nasal Influenza B PCR NOT DETECTED 06/09/23 09:50 Nasal Influenza A PCR NOT DETECTED 06/09/23 09:50 Nasal Parainfluen 1 PCR NOT DETECTED 06/09/23 09:50 Nasal Parainfluen 2 PCR NOT DETECTED 06/09/23 09:50 Nasal Parainfluen 3 PCR NOT DETECTED 06/09/23 09:50 Nasal Parainfluen 4 PCR NOT DETECTED 06/09/23 09:50 Nasal RSV (PCR) NOT DETECTED 06/09/23 09:50 Nasal Screen MRSA (PCR) NEGATIVE (NEGATIVE) 06/11/23 05:00 Nasal B.pertussis DNA PCR NOT DETECTED 06/09/23 09:50 Nasal C.pneumoniae (PCR) NOT DETECTED 06/09/23 09:50 Amish Human Metapneumo PCR NOT DETECTED 06/09/23 09:50 Nasal M.pneumoniae (PCR) NOT DETECTED 06/09/23 09:50 Nasal SARS-CoV-2 (PCR) NOT DETECTED 06/09/23 09:50 Last Dose Date UNKNOWN 06/13/23 05:25 Last Dose Time UNKNOWN 06/13/23 05:25 Vancomycin Peak 43.7 ug/mL (20.0-40.0) H 06/11/23 21:00 Vancomycin Trough 21.6 ug/mL 06/13/23 05:25 Sepsis Event Note (H) - Evaluation Current Stage of Sepsis: Ruled out
[2023-06-24] MEDS: GABAPENTIN 300 MG CAPSULE PO SCH (20:59)
[2023-06-24] MEDS: traZODone 50 MG TABLET PO SCH (21:01)
[2023-06-25] MEDS: ACETAMINOPHEN 325 MG TABLET PO PRN (00:06)
[2023-06-25 05:47] LABS: BASOPHILS # (AUTO) 0.1 10^3/uL (0.0-0.1); BASOPHILS % (AUTO) 1.1 %; EOSINOPHILS # (AUTO) 0.2 10^3/uL (0.0-0.7); EOSINOPHILS % (AUTO) 2.4 %; HCT - HEMATOCRIT 41.3 % (37.0-47.0); HGB - HEMOGLOBIN 11.4 g/dL (12.0-16.0); LYMPHOCYTES # (AUTO) 2.4 10^3/uL (1.5-3.5); LYMPHOCYTES % (AUTO) 39.8 %; MEAN CORPUSCULAR HEMOGLOBIN 24.9 pg (27.0-31.0); MEAN CORPUSCULAR HGB CONC 27.6 g/dL (32.0-36.0); MEAN CORPUSCULAR VOLUME 90.2 fL (81.0-99.0); MEAN PLATELET VOLUME 10.1 fL (7.9-10.8); MONOCYTES # (AUTO) 0.5 10^3/uL (0.0-1.0); MONOCYTES % (AUTO) 7.7 %; NEUTROPHILS % (AUTO) 48.5 %; PLT - PLATELET COUNT 253 10^3/uL (130-450); RED BLOOD COUNT 4.58 10^6/uL (4.20-5.40); RED CELL DISTRIBUTION WIDTH 15.9 % (12.0-15.0); WHITE BLOOD COUNT 6.1 x10^3/uL (4.8-10.8)
[2023-06-25 06:05] LABS: MAGNESIUM 1.7 mg/dL (1.7-2.3)
[2023-06-25 06:10] LABS: CALCIUM 10.5 mg/dL (8.5-10.3); CREATININE 0.5 mg/dL (0.6-1.3)
[2023-06-25] MEDS: INSULIN LISPRO 300 UNIT/3 ML PEN SUBQ SCH ×4 (08:11→21:05)
[2023-06-25] MEDS: INSULIN GLARGINE-YFGN 300 UNIT/3 ML PEN SUBQ SCH ×2 (08:12→21:04)
[2023-06-25] MEDS: METOPROLOL TARTRATE 25 MG TABLET PO SCH ×2 (08:12→21:12)
[2023-06-25] MEDS: guaiFENesin 600 MG TABLET PO SCH ×2 (08:12→21:05)
[2023-06-25] MEDS: FAMOTIDINE 20 MG TABLET PO SCH ×2 (08:12→21:06)
[2023-06-25] MEDS: MULTIVITAMIN W/MINERALS TABLET PO SCH (08:13)
[2023-06-25] MEDS: ENOXAPARIN 40 MG/0.4 ML SYRINGE SUBQ SCH (08:13)
[2023-06-25] MEDS: MAGNESIUM OXIDE 400 MG TABLET PO SCH (08:13)
--- NOTE | 2023-06-25 12:22 | PROVIDER PROGRESS NOTE ---
Assessment/Plan - Problem List (1) Acute respiratory failure with hypoxia and hypercarbia Assessment/Plan: Oxygen need was fluctuated between 5 L to 13 L, to maintain oxygen saturation over 92%. Over the last 24 hours, she has had good sats on 5L/min Plan: If patient oxygen needs is around 5 L, patient can be discharged to a SNF fo short-term rehab, this plan has been in agreement with patient mom and sister. If patient is worsening, family may consider hospice care. SW will (again) try to get her into a SNF (2) CO2 narcosis Assessment/Plan: Mental status can fluctuate depends on the status of CO2 retention Evening and morning are challenging, as she can keep moving her oxygen oxy mask from time to time, causing desaturation and turning blue and somnolent. 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 I had suspected her respiratory muscle weakness was from her Myotonic Dystrophy causing to hypoxia & hypercarbia also Plan: Supportive care and cont PT and OT (4) New onset a-fib Assessment/Plan: Metoprolol continues for rate control She is not a candidate for anticoagulant due to poor cognitive function and poor insight of her condition Plan: Cont on metoprolol for rate control Telemetry may be stopped (5) DM type 2 (diabetes mellitus, type 2) Assessment/Plan: Plan: On DM diet, insulin sliding scale Hypoglycemia precaution She still needs incr in a.m. Semglee dose, from 5>> 8 U due to glu >200's (6) Pulmonary edema Assessment/Plan: Resolved. Has clear lungs Plan: Cont monitoring - Current Meds Current Meds: Current Medications Generic Name Dose Route Start Last Admin Trade Name Freq PRN Reason Stop Dose Admin Acetaminophen 650 mg 06/09/23 13:50 06/25/23 00:06 Acetaminophen 325 Mg Tablet PO 650 mg Q4HR PRN Administration Pain 1 to 4, or Fever Enoxaparin Sodium 40 mg 06/10/23 09:00 06/25/23 08:13 Enoxaparin 40 Mg/0.4 Ml Syringe SUBQ 40 mg DAILY PEREZ Administration Famotidine 20 mg 06/18/23 21:00 06/25/23 08:12 Famotidine 20 Mg Tablet PO 20 mg BID PEREZ Administration Gabapentin 300 mg 06/15/23 02:25 06/24/23 20:59 Gabapentin 300 Mg Capsule PO 300 mg QPM PEREZ Administration Guaifenesin 600 mg 06/12/23 14:00 06/25/23 08:12 Guaifenesin 600 Mg Tablet PO 600 mg BID PEREZ Administration Insulin Glargine-yfgn 20 unit 06/15/23 21:00 06/24/23 20:59 Insulin Glargine-Yfgn 300 Unit/3 Ml Pen SUBQ 20 unit QPM PEREZ Administration Insulin Human Lispro 1 - 9 unit 06/10/23 17:21 06/25/23 11:45 Insulin Lispro 300 Unit/3 Ml Pen SUBQ 7 unit 0800,1200,1700,2100 PEREZ Administration Protocol Magnesium Oxide 400 mg 06/17/23 09:00 06/25/23 08:13 Magnesium Oxide 400 Mg Tablet PO 400 mg DAILYWM PEREZ Administration Metoprolol Tartrate 25 mg 06/19/23 21:00 06/25/23 08:12 Metoprolol Tartrate 25 Mg Tablet PO 25 mg BID PEREZ Administration Multivitamins/Minerals 1 tab 06/22/23 14:00 06/25/23 08:13 Multivitamin W/Minerals Tablet PO 1 tab DAILYWM PEREZ Administration Trazodone HCl 25 mg 06/16/23 21:00 06/24/23 21:01 Trazodone 50 Mg Tablet PO Not Given QPM PEREZ - Lab Result Fish Bone Diagrams: 06/25/23 05:06 06/25/23 05:06 - Additional Planning My Orders: My Active Orders 06/26/23 09:00 Insulin Glargine-Yfgn [Semglee] 8 unit SUBQ DAILY Subjective - Subjective Patient Reports: Feeling Better, No Complaints Objective Vital Signs: Vital Signs - 24 hr 06/24/23 06/24/23 06/24/23 13:38 22:00 22:30 Temperature 36.3 C L 36.5 C Heart Rate [ 85 91 Brachial] Respiratory 16 18 Rate Blood Pressure Blood Pressure 106/62 [Left Brachial artery] Blood Pressure 83/53 L [Right Brachial artery] O2 Saturation 90 L 95 If not protocol 5 4 5 : Oxygen Flow, liters/minute 06/25/23 06/25/23 06/25/23 00:11 07:21 07:35 Temperature 36.4 C L 36.2 C L Heart Rate [ 80 88 Brachial] Respiratory 17 16 Rate Blood Pressure Blood Pressure [Left Brachial artery] Blood Pressure 101/48 L 113/52 L [Right Brachial artery] O2 Saturation 94 92 If not protocol 5 5 5 : Oxygen Flow, liters/minute 06/25/23 08:12 Temperature Heart Rate [ Brachial] Respiratory Rate Blood Pressure 113/52 L Blood Pressure [Left Brachial artery] Blood Pressure [Right Brachial artery] O2 Saturation If not protocol : Oxygen Flow, liters/minute Oxygen O2 Source Nasal cannula I&O (Last 24 Hrs): Intake and Output Totals x24h 06/23/23 06/24/23 06/25/23 23:59 23:59 23:59 Intake Total 1095 980 240 Output Total 775 675 350 Balance 320 305 -110 General: Alert, No acute distress HEENT: Mucous membr. moist/pink, Other (Poor dental care. Has on O2 by n.c.) Neck: Supple, No JVD Neuro: Alert, Non Focal, Other (Has generalized weakness, even in her voice) Cardiovascular: No murmurs Respiratory: No respiratory distress, Breath sounds nml Abdomen: Soft, Other (Obese) Extremities: No clubbing, Other (1+ edema to knees) - Results Results: Laboratory Results WBC 6.1 x10^3/uL (4.8-10.8) 06/25/23 05:06 RBC 4.58 10^6/uL (4.20-5.40) 06/25/23 05:06 Hgb 11.4 g/dL (12.0-16.0) L 06/25/23 05:06 Hct 41.3 % (37.0-47.0) 06/25/23 05:06 MCV 90.2 fL (81.0-99.0) 06/25/23 05:06 MCH 24.9 pg (27.0-31.0) L 06/25/23 05:06 MCHC 27.6 g/dL (32.0-36.0) L 06/25/23 05:06 RDW 15.9 % (12.0-15.0) H 06/25/23 05:06 Plt Count 253 10^3/uL (130-450) 06/25/23 05:06 MPV 10.1 fL (7.9-10.8) 06/25/23 05:06 Neut # (Auto) 3.0 10^3/uL (1.5-6.6) 06/25/23 05:06 Lymph # (Auto) 2.4 10^3/uL (1.5-3.5) 06/25/23 05:06 [place] # (Auto) 0.5 10^3/uL (0.0-1.0) 06/25/23 05:06 Eos # (Auto) 0.2 10^3/uL (0.0-0.7) 06/25/23 05:06 Baso # (Auto) 0.1 10^3/uL (0.0-0.1) 06/25/23 05:06 Absolute Nucleated RBC 0.00 x10^3/uL 06/25/23 05:06 Nucleated RBC % 0.0 /100WBC 06/25/23 05:06 Manual Slide Review Indicated 06/22/23 07:27 WBC Morphology NORMAL APPEARANCE (NORMAL) 06/13/23 05:25 Platelet Estimate NORMAL (130-450,000) (NORMAL) 06/22/23 07:27 Platelet Morphology NORMAL APPEARANCE (NORMAL) 06/22/23 07:27 RBC Morph Micro Appear 1+ HYPOCHROMASIA (NORMAL) 06/22/23 07:27 Bld Gas Analysis Time 0415 06/19/23 04:05 Sample Site RIGHT RADIAL 06/19/23 04:05 ABG pH 7.30 (7.35-7.45) L 06/19/23 04:05 ABG pCO2 87 mmHg (34-45) H* 06/19/23 04:05 ABG pO2 70 mmHg (80-100) L 06/19/23 04:05 ABG HCO3 42.1 mmol/L (22.0-26.0) H 06/19/23 04:05 ABG Total CO2 44.8 MMOL/L (21.0-29.0) H* 06/19/23 04:05 ABG O2 Saturation 92 % (94-98) L 06/19/23 04:05 ABG Base Excess 12.4 mmol/L (-2.0-3.0) H 06/19/23 04:05 [place] Test POSITIVE 06/19/23 04:05 VBG pH 7.348 (7.31-7.41) 06/18/23 05:47 Ionized Calcium 1.29 mmol/L (1.15-1.33) 06/18/23 05:47 Respiration Rate 16 b/min 06/14/23 15:30 O2 Delivery Device NON REBREATHER MASK 06/19/23 04:05 O2 Liters/Min 15.00 LPM 06/19/23 04:05 Vent Mode SYNCHRONOUS/TIMES 06/14/23 15:30 FiO2 50.00 06/14/23 15:30 EPAP 6 cmH2O 06/14/23 15:30 IPAP 14 cmH2O 06/14/23 15:30 Sodium 143 mmol/L (135-145) 06/25/23 05:06 Potassium 4.0 mmol/L (3.5-4.5) 06/25/23 05:06 Chloride 98 mmol/L (101-111) L 06/25/23 05:06 Carbon Dioxide 40 mmol/L (21-32) H* 06/25/23 05:06 Anion Gap 5.0 (6-13) L 06/25/23 05:06 BUN 9 mg/dL (6-20) 06/25/23 05:06 Creatinine 0.5 mg/dL (0.6-1.3) L 06/25/23 05:06 Estimated GFR (MDRD) 129 (>89) 06/25/23 05:06 Glucose 185 mg/dL (74-104) H 06/25/23 05:06 POC Whole Bld Glucose 290 mg/dL (70 - 100) H 06/25/23 11:27 Estimat Average Glucose 226 mg/dL (70-100) H 06/10/23 06:12 Hemoglobin A1c % 9.5 % (4.27-6.07) H 06/10/23 06:12 Calcium 10.5 mg/dL (8.5-10.3) H 06/25/23 05:06 Phosphorus 3.3 mg/dL (2.5-5.0) 06/18/23 05:47 Magnesium 1.7 mg/dL (1.7-2.3) 06/25/23 05:06 Total Bilirubin 0.9 mg/dL (0.2-1.0) 06/09/23 09:53 AST 13 IU/L (10-42) 06/09/23 09:53 ALT 10 IU/L (10-60) 06/09/23 09:53 Alkaline Phosphatase 76 IU/L (42-121) 06/09/23 09:53 Troponin I High Sens 36.4 ng/L (2.3-14.8) H* 06/11/23 11:31 B-Natriuretic Peptide 60 pg/mL (5-100) 06/20/23 06:06 Total Protein 6.4 g/dL (6.4-8.9) 06/09/23 09:53 Albumin 3.9 g/dL (3.2-5.5) 06/09/23 09:53 Globulin 2.5 g/dL (2.1-4.2) 06/09/23 09:53 Albumin/Globulin Ratio 1.6 (1.0-2.2) 06/09/23 09:53 TSH 1.74 uIU/mL (0.34-5.60) 06/10/23 06:12 Urine Color DARK YELLOW 06/09/23 12:25 Urine Clarity CLOUDY (CLEAR) 06/09/23 12:25 Urine pH 6.0 PH (5.0-7.5) 06/09/23 12:25 Ur Specific [place] 1.025 (1.002-1.030) 06/09/23 12:25 Urine Protein TRACE mg/dL (NEGATIVE) 06/09/23 12:25 Urine Glucose (UA) 250 mg/dL (NEGATIVE) H 06/09/23 12:25 Urine Ketones NEGATIVE mg/dL (NEGATIVE) 06/09/23 12:25 Urine Occult Blood LARGE (NEGATIVE) H 06/09/23 12:25 Urine Nitrite NEGATIVE (NEGATIVE) 06/09/23 12:25 Urine Bilirubin NEGATIVE (NEGATIVE) 06/09/23 12:25 Urine Urobilinogen 0.2 (NORMAL) E.U./dL (NORMAL) 06/09/23 12:25 Ur Leukocyte Esterase NEGATIVE (NEGATIVE) 06/09/23 12:25 Urine RBC TNTC /HPF (0-5) H 06/09/23 12:25 Urine WBC 4-5 /HPF (0-5) 06/09/23 12:25 Ur Squamous Epith Cells MOD Squamous (<= Few) H 06/09/23 12:25 Urine Crystals >50 Calcium Oxalate /LPF 06/09/23 12:25 Urine Bacteria Moderate /HPF (None Seen) H 06/09/23 12:25 Urine Mucus Few Strands 06/09/23 12:25 Ur Microscopic Review INDICATED 06/09/23 12:25 Urine Culture Comments NOT INDICATED 06/09/23 12:25 Nasal Adenovirus (PCR) NOT DETECTED 06/09/23 09:50 Nasal B. parapertussis DNA (PCR) NOT DETECTED 06/09/23 09:50 Nasal Coronavir 229E PCR NOT DETECTED 06/09/23 09:50 Nasal Coronavir HKU1 PCR NOT DETECTED 06/09/23 09:50 Nasal Coronavir NL63 PCR NOT DETECTED 06/09/23 09:50 Nasal Coronavir OC43 PCR NOT DETECTED 06/09/23 09:50 Nasal Enterovir/Rhinovir PCR NOT DETECTED 06/09/23 09:50 Nasal Influenza B PCR NOT DETECTED 06/09/23 09:50 Nasal Influenza A PCR NOT DETECTED 06/09/23 09:50 Nasal Parainfluen 1 PCR NOT DETECTED 06/09/23 09:50 Nasal Parainfluen 2 PCR NOT DETECTED 06/09/23 09:50 Nasal Parainfluen 3 PCR NOT DETECTED 06/09/23 09:50 Nasal Parainfluen 4 PCR NOT DETECTED 06/09/23 09:50 Nasal RSV (PCR) NOT DETECTED 06/09/23 09:50 Nasal Screen MRSA (PCR) NEGATIVE (NEGATIVE) 06/11/23 05:00 Nasal B.pertussis DNA PCR NOT DETECTED 06/09/23 09:50 Nasal C.pneumoniae (PCR) NOT DETECTED 06/09/23 09:50 Amish Human Metapneumo PCR NOT DETECTED 06/09/23 09:50 Nasal M.pneumoniae (PCR) NOT DETECTED 06/09/23 09:50 Nasal SARS-CoV-2 (PCR) NOT DETECTED 06/09/23 09:50 Last Dose Date UNKNOWN 06/13/23 05:25 Last Dose Time UNKNOWN 06/13/23 05:25 Vancomycin Peak 43.7 ug/mL (20.0-40.0) H 06/11/23 21:00 Vancomycin Trough 21.6 ug/mL 06/13/23 05:25 Sepsis Event Note (H) - Evaluation Current Stage of Sepsis: Ruled out
[2023-06-25] MEDS: traZODone 50 MG TABLET PO SCH (21:06)
[2023-06-25] MEDS: GABAPENTIN 300 MG CAPSULE PO SCH (21:06)
[2023-06-26] MEDS: ENOXAPARIN 40 MG/0.4 ML SYRINGE SUBQ SCH (09:35)
[2023-06-26] MEDS: INSULIN LISPRO 300 UNIT/3 ML PEN SUBQ SCH ×4 (09:35→21:20)
[2023-06-26] MEDS: INSULIN GLARGINE-YFGN 300 UNIT/3 ML PEN SUBQ SCH ×2 (09:36→21:20)
[2023-06-26] MEDS: MAGNESIUM OXIDE 400 MG TABLET PO SCH (09:36)
[2023-06-26] MEDS: METOPROLOL TARTRATE 25 MG TABLET PO SCH ×2 (09:36→21:01)
[2023-06-26] MEDS: guaiFENesin 600 MG TABLET PO SCH ×2 (09:37→20:58)
[2023-06-26] MEDS: MULTIVITAMIN W/MINERALS TABLET PO SCH (09:37)
[2023-06-26] MEDS: FAMOTIDINE 20 MG TABLET PO SCH ×2 (09:37→20:58)
[2023-06-26] MEDS: ACETAMINOPHEN 325 MG TABLET PO PRN (15:55)
--- NOTE | 2023-06-26 18:01 | PROVIDER PROGRESS NOTE ---
Assessment/Plan - Problem List (1) Acute respiratory failure with hypoxia and hypercarbia Assessment/Plan: Oxygen need was fluctuated between 2-5 L, to maintain oxygen saturation over 92%. Over the last 24 hours, she has had good sats on 5L/min Plan: Since patient oxygen need is <6 L for the past 48 hours, patient can be discharged to a SNF fo short-term rehab, this plan has been in agreement with patient mom and sister.SW will (again) try to get her into a SNF (2) CO2 narcosis Assessment/Plan: Mental status can fluctuate depends on the status of CO2 retention Evening and morning are challenging, as she was moving her oxygen oxy mask from time to time, causing desaturation and turning cyanotic and somnolent. 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 I had suspected her respiratory muscle weakness was from her Myotonic Dystrophy causing to hypoxia & hypercarbia also Plan: Supportive care and cont PT and OT (4) New onset a-fib Assessment/Plan: Metoprolol continues for rate control She is not a candidate for anticoagulant due to poor cognitive function and poor insight of her condition Plan: Cont on metoprolol for rate control Telemetry may be stopped (5) DM type 2 (diabetes mellitus, type 2) Assessment/Plan: Plan: On DM diet, insulin long-acting and sliding scale Hypoglycemia precaution (6) Pulmonary edema Assessment/Plan: Resolved. Has clear lungs Plan: Cont monitoring - Current Meds Current Meds: Current Medications Generic Name Dose Route Start Last Admin Trade Name Freq PRN Reason Stop Dose Admin Acetaminophen 650 mg 06/09/23 13:50 06/26/23 15:55 Acetaminophen 325 Mg Tablet PO 650 mg Q4HR PRN Administration Pain 1 to 4, or Fever Enoxaparin Sodium 40 mg 06/10/23 09:00 06/26/23 09:35 Enoxaparin 40 Mg/0.4 Ml Syringe SUBQ 40 mg DAILY PEREZ Administration Famotidine 20 mg 06/18/23 21:00 06/26/23 09:37 Famotidine 20 Mg Tablet PO 20 mg BID PEREZ Administration Gabapentin 300 mg 06/15/23 02:25 06/25/23 21:06 Gabapentin 300 Mg Capsule PO 300 mg QPM PEREZ Administration Guaifenesin 600 mg 06/12/23 14:00 06/26/23 09:37 Guaifenesin 600 Mg Tablet PO 600 mg BID PEREZ Administration Insulin Glargine-yfgn 20 unit 06/15/23 21:00 06/25/23 21:04 Insulin Glargine-Yfgn 300 Unit/3 Ml Pen SUBQ 20 unit QPM PEREZ Administration Insulin Glargine-yfgn 8 unit 06/26/23 09:00 06/26/23 09:36 Insulin Glargine-Yfgn 300 Unit/3 Ml Pen SUBQ 8 unit DAILY PEREZ Administration Insulin Human Lispro 2 - 10 unit 06/26/23 17:00 06/26/23 16:52 Insulin Lispro 300 Unit/3 Ml Pen SUBQ 8 unit 0800,1200,1700,2100 PEREZ Administration Protocol Magnesium Oxide 400 mg 06/17/23 09:00 06/26/23 09:36 Magnesium Oxide 400 Mg Tablet PO 400 mg DAILYWM PEREZ Administration Metoprolol Tartrate 25 mg 06/19/23 21:00 06/26/23 09:36 Metoprolol Tartrate 25 Mg Tablet PO 25 mg BID PEREZ Administration Multivitamins/Minerals 1 tab 06/22/23 14:00 06/26/23 09:37 Multivitamin W/Minerals Tablet PO 1 tab DAILYWM PEREZ Administration Trazodone HCl 25 mg 06/16/23 21:00 06/25/23 21:06 Trazodone 50 Mg Tablet PO 25 mg QPM PEREZ Administration - Lab Result Fish Bone Diagrams: 06/25/23 05:06 06/25/23 05:06 - Additional Planning My Orders: My Active Orders 06/26/23 09:00 Insulin Glargine-Yfgn [Semglee] 8 unit SUBQ DAILY 06/26/23 17:00 Insulin Lispro [Humalog Kwikpen U-100] 2 - 10 unit SUBQ 0800,1200,1700,2100 Subjective - Subjective Patient Reports: Resting Comfortably Objective Vital Signs: Vital Signs - 24 hr 06/25/23 06/25/23 06/25/23 18:32 21:12 21:14 Temperature Heart Rate [ 78 Brachial] Respiratory Rate Blood Pressure 96/42 L Blood Pressure 104/53 L [Right Brachial artery] O2 Saturation If not protocol 92 : Oxygen Flow, liters/minute 06/26/23 06/26/23 06/26/23 03:36 07:10 09:36 Temperature 36.6 C Heart Rate [ 75 Brachial] Respiratory 20 Rate Blood Pressure 111/56 L Blood Pressure 110/56 L [Right Brachial artery] O2 Saturation 91 L If not protocol 2 5 : Oxygen Flow, liters/minute 06/26/23 06/26/23 09:38 14:00 Temperature 36.3 C L Heart Rate [ 91 Brachial] Respiratory 16 Rate Blood Pressure Blood Pressure 104/59 L [Right Brachial artery] O2 Saturation 93 92 If not protocol 5 : Oxygen Flow, liters/minute Oxygen O2 Source Nasal cannula I&O (Last 24 Hrs): Intake and Output Totals x24h 06/24/23 06/25/23 06/26/23 23:59 23:59 23:59 Intake Total 980 1560 840 Output Total 675 1000 0 Balance 305 560 840 General: Other (Sitting up in a chair, wearing nasal cannula oxygen, is napping with her chin down on her chest) HEENT: Mucous membr. moist/pink Neck: Supple Neuro: Other (Lethargic. Weak voice) Cardiovascular: Other (Distant heart sounds due to obesity) Respiratory: No respiratory distress, Breath sounds nml Abdomen: Normal bowel sounds, Soft Extremities: No edema, No tenderness/swelling - Results Results: Laboratory Results WBC 6.1 x10^3/uL (4.8-10.8) 06/25/23 05:06 RBC 4.58 10^6/uL (4.20-5.40) 06/25/23 05:06 Hgb 11.4 g/dL (12.0-16.0) L 06/25/23 05:06 Hct 41.3 % (37.0-47.0) 06/25/23 05:06 MCV 90.2 fL (81.0-99.0) 06/25/23 05:06 MCH 24.9 pg (27.0-31.0) L 06/25/23 05:06 MCHC 27.6 g/dL (32.0-36.0) L 06/25/23 05:06 RDW 15.9 % (12.0-15.0) H 06/25/23 05:06 Plt Count 253 10^3/uL (130-450) 06/25/23 05:06 MPV 10.1 fL (7.9-10.8) 06/25/23 05:06 Neut # (Auto) 3.0 10^3/uL (1.5-6.6) 06/25/23 05:06 Lymph # (Auto) 2.4 10^3/uL (1.5-3.5) 06/25/23 05:06 [place] # (Auto) 0.5 10^3/uL (0.0-1.0) 06/25/23 05:06 Eos # (Auto) 0.2 10^3/uL (0.0-0.7) 06/25/23 05:06 Baso # (Auto) 0.1 10^3/uL (0.0-0.1) 06/25/23 05:06 Absolute Nucleated RBC 0.00 x10^3/uL 06/25/23 05:06 Nucleated RBC % 0.0 /100WBC 06/25/23 05:06 Manual Slide Review Indicated 06/22/23 07:27 WBC Morphology NORMAL APPEARANCE (NORMAL) 06/13/23 05:25 Platelet Estimate NORMAL (130-450,000) (NORMAL) 06/22/23 07:27 Platelet Morphology NORMAL APPEARANCE (NORMAL) 06/22/23 07:27 RBC Morph Micro Appear 1+ HYPOCHROMASIA (NORMAL) 06/22/23 07:27 Bld Gas Analysis Time 0415 06/19/23 04:05 Sample Site RIGHT RADIAL 06/19/23 04:05 ABG pH 7.30 (7.35-7.45) L 06/19/23 04:05 ABG pCO2 87 mmHg (34-45) H* 06/19/23 04:05 ABG pO2 70 mmHg (80-100) L 06/19/23 04:05 ABG HCO3 42.1 mmol/L (22.0-26.0) H 06/19/23 04:05 ABG Total CO2 44.8 MMOL/L (21.0-29.0) H* 06/19/23 04:05 ABG O2 Saturation 92 % (94-98) L 06/19/23 04:05 ABG Base Excess 12.4 mmol/L (-2.0-3.0) H 06/19/23 04:05 Davie Test POSITIVE 06/19/23 04:05 VBG pH 7.348 (7.31-7.41) 06/18/23 05:47 Ionized Calcium 1.29 mmol/L (1.15-1.33) 06/18/23 05:47 Respiration Rate 16 b/min 06/14/23 15:30 O2 Delivery Device NON REBREATHER MASK 06/19/23 04:05 O2 Liters/Min 15.00 LPM 06/19/23 04:05 Vent Mode SYNCHRONOUS/TIMES 06/14/23 15:30 FiO2 50.00 06/14/23 15:30 EPAP 6 cmH2O 06/14/23 15:30 IPAP 14 cmH2O 06/14/23 15:30 Sodium 143 mmol/L (135-145) 06/25/23 05:06 Potassium 4.0 mmol/L (3.5-4.5) 06/25/23 05:06 Chloride 98 mmol/L (101-111) L 06/25/23 05:06 Carbon Dioxide 40 mmol/L (21-32) H* 06/25/23 05:06 Anion Gap 5.0 (6-13) L 06/25/23 05:06 BUN 9 mg/dL (6-20) 06/25/23 05:06 Creatinine 0.5 mg/dL (0.6-1.3) L 06/25/23 05:06 Estimated GFR (MDRD) 129 (>89) 06/25/23 05:06 Glucose 185 mg/dL (74-104) H 06/25/23 05:06 POC Whole Bld Glucose 291 mg/dL (70 - 100) H 06/26/23 16:06 Estimat Average Glucose 226 mg/dL (70-100) H 06/10/23 06:12 Hemoglobin A1c % 9.5 % (4.27-6.07) H 06/10/23 06:12 Calcium 10.5 mg/dL (8.5-10.3) H 06/25/23 05:06 Phosphorus 3.3 mg/dL (2.5-5.0) 06/18/23 05:47 Magnesium 1.7 mg/dL (1.7-2.3) 06/25/23 05:06 Total Bilirubin 0.9 mg/dL (0.2-1.0) 06/09/23 09:53 AST 13 IU/L (10-42) 06/09/23 09:53 ALT 10 IU/L (10-60) 06/09/23 09:53 Alkaline Phosphatase 76 IU/L (42-121) 06/09/23 09:53 Troponin I High Sens 36.4 ng/L (2.3-14.8) H* 06/11/23 11:31 B-Natriuretic Peptide 60 pg/mL (5-100) 06/20/23 06:06 Total Protein 6.4 g/dL (6.4-8.9) 06/09/23 09:53 Albumin 3.9 g/dL (3.2-5.5) 06/09/23 09:53 Globulin 2.5 g/dL (2.1-4.2) 06/09/23 09:53 Albumin/Globulin Ratio 1.6 (1.0-2.2) 06/09/23 09:53 TSH 1.74 uIU/mL (0.34-5.60) 06/10/23 06:12 Urine Color DARK YELLOW 06/09/23 12:25 Urine Clarity CLOUDY (CLEAR) 06/09/23 12:25 Urine pH 6.0 PH (5.0-7.5) 06/09/23 12:25 Ur Specific [place] 1.025 (1.002-1.030) 06/09/23 12:25 Urine Protein TRACE mg/dL (NEGATIVE) 06/09/23 12:25 Urine Glucose (UA) 250 mg/dL (NEGATIVE) H 06/09/23 12:25 Urine Ketones NEGATIVE mg/dL (NEGATIVE) 06/09/23 12:25 Urine Occult Blood LARGE (NEGATIVE) H 06/09/23 12:25 Urine Nitrite NEGATIVE (NEGATIVE) 06/09/23 12:25 Urine Bilirubin NEGATIVE (NEGATIVE) 06/09/23 12:25 Urine Urobilinogen 0.2 (NORMAL) E.U./dL (NORMAL) 06/09/23 12:25 Ur Leukocyte Esterase NEGATIVE (NEGATIVE) 06/09/23 12:25 Urine RBC TNTC /HPF (0-5) H 06/09/23 12:25 Urine WBC 4-5 /HPF (0-5) 06/09/23 12:25 Ur Squamous Epith Cells MOD Squamous (<= Few) H 06/09/23 12:25 Urine Crystals >50 Calcium Oxalate /LPF 06/09/23 12:25 Urine Bacteria Moderate /HPF (None Seen) H 06/09/23 12:25 Urine Mucus Few Strands 06/09/23 12:25 Ur Microscopic Review INDICATED 06/09/23 12:25 Urine Culture Comments NOT INDICATED 06/09/23 12:25 Nasal Adenovirus (PCR) NOT DETECTED 06/09/23 09:50 Nasal B. parapertussis DNA (PCR) NOT DETECTED 06/09/23 09:50 Nasal Coronavir 229E PCR NOT DETECTED 06/09/23 09:50 Nasal Coronavir HKU1 PCR NOT DETECTED 06/09/23 09:50 Nasal Coronavir NL63 PCR NOT DETECTED 06/09/23 09:50 Nasal Coronavir OC43 PCR NOT DETECTED 06/09/23 09:50 Nasal Enterovir/Rhinovir PCR NOT DETECTED 06/09/23 09:50 Nasal Influenza B PCR NOT DETECTED 06/09/23 09:50 Nasal Influenza A PCR NOT DETECTED 06/09/23 09:50 Nasal Parainfluen 1 PCR NOT DETECTED 06/09/23 09:50 Nasal Parainfluen 2 PCR NOT DETECTED 06/09/23 09:50 Nasal Parainfluen 3 PCR NOT DETECTED 06/09/23 09:50 Nasal Parainfluen 4 PCR NOT DETECTED 06/09/23 09:50 Nasal RSV (PCR) NOT DETECTED 06/09/23 09:50 Nasal Screen MRSA (PCR) NEGATIVE (NEGATIVE) 06/11/23 05:00 Nasal B.pertussis DNA PCR NOT DETECTED 06/09/23 09:50 Nasal C.pneumoniae (PCR) NOT DETECTED 06/09/23 09:50 Amish Human Metapneumo PCR NOT DETECTED 06/09/23 09:50 Nasal M.pneumoniae (PCR) NOT DETECTED 06/09/23 09:50 Nasal SARS-CoV-2 (PCR) NOT DETECTED 06/09/23 09:50 Last Dose Date UNKNOWN 06/13/23 05:25 Last Dose Time UNKNOWN 06/13/23 05:25 Vancomycin Peak 43.7 ug/mL (20.0-40.0) H 06/11/23 21:00 Vancomycin Trough 21.6 ug/mL 06/13/23 05:25 Sepsis Event Note (H) - Evaluation Current Stage of Sepsis: Ruled out
[2023-06-26] MEDS: traZODone 50 MG TABLET PO SCH (20:57)
[2023-06-26] MEDS: GABAPENTIN 300 MG CAPSULE PO SCH (20:57)
[2023-06-27] MEDS: ENOXAPARIN 40 MG/0.4 ML SYRINGE SUBQ SCH (08:41)
[2023-06-27] MEDS: INSULIN LISPRO 300 UNIT/3 ML PEN SUBQ SCH ×4 (08:42→20:58)
[2023-06-27] MEDS: INSULIN GLARGINE-YFGN 300 UNIT/3 ML PEN SUBQ SCH ×2 (08:43→21:00)
[2023-06-27] MEDS: METOPROLOL TARTRATE 25 MG TABLET PO SCH ×2 (08:44→20:44)
[2023-06-27] MEDS: ACETAMINOPHEN 325 MG TABLET PO PRN ×2 (08:44)
[2023-06-27] MEDS: MULTIVITAMIN W/MINERALS TABLET PO SCH (08:44)
[2023-06-27] MEDS: MAGNESIUM OXIDE 400 MG TABLET PO SCH (08:44)
[2023-06-27] MEDS: FAMOTIDINE 20 MG TABLET PO SCH ×2 (08:45→20:44)
[2023-06-27] MEDS: guaiFENesin 600 MG TABLET PO SCH ×2 (08:45→20:43)
--- NOTE | 2023-06-27 13:01 | PROVIDER PROGRESS NOTE ---
Assessment/Plan - Problem List (1) Acute respiratory failure with hypoxia and hypercarbia Assessment/Plan: Oxygen need was fluctuated between 2-5 L, to maintain oxygen saturation over 92%. Over the last 3 days, she has had good sats on 5L/min. And she has not needed CPAP Plan: Since patient oxygen need is <6 L for the past 48 hours, patient can be discharged to a SNF fo short-term rehab, this plan has been in agreement with patient mom and sister.SW will (again) try to get her into a SNF (2) CO2 narcosis Assessment/Plan: Mental status can fluctuate depends on the status of CO2 retention Evening and morning are challenging, as she was moving her oxygen oxy mask from time to time, causing desaturation and turning cyanotic and somnolent. 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 I had suspected her respiratory muscle weakness was from her Myotonic Dystrophy causing to hypoxia & hypercarbia also Plan: Supportive care and cont PT and OT (4) New onset a-fib Assessment/Plan: Metoprolol continues for rate control She is not a candidate for anticoagulant due to poor cognitive function and poor insight of her condition Telemetry was stopped Plan: Cont on metoprolol for rate control (5) DM type 2 (diabetes mellitus, type 2) Assessment/Plan: Plan: On DM diet, insulin long-acting and sliding scale Hypoglycemia precaution (6) Pulmonary edema Assessment/Plan: Resolved. Has clear lungs Plan: Cont monitoring - Current Meds Current Meds: Current Medications Generic Name Dose Route Start Last Admin Trade Name Freq PRN Reason Stop Dose Admin Acetaminophen 650 mg 06/09/23 13:50 06/27/23 08:44 Acetaminophen 325 Mg Tablet PO 650 mg Q4HR PRN Administration Pain 1 to 4, or Fever Enoxaparin Sodium 40 mg 06/10/23 09:00 06/27/23 08:41 Enoxaparin 40 Mg/0.4 Ml Syringe SUBQ 40 mg DAILY PEREZ Administration Famotidine 20 mg 06/18/23 21:00 06/27/23 08:45 Famotidine 20 Mg Tablet PO 20 mg BID PEREZ Administration Gabapentin 300 mg 06/15/23 02:25 06/26/23 20:57 Gabapentin 300 Mg Capsule PO 300 mg QPM PEREZ Administration Guaifenesin 600 mg 06/12/23 14:00 06/27/23 08:45 Guaifenesin 600 Mg Tablet PO 600 mg BID PEREZ Administration Insulin Glargine-yfgn 20 unit 06/15/23 21:00 06/26/23 21:20 Insulin Glargine-Yfgn 300 Unit/3 Ml Pen SUBQ 20 unit QPM PEREZ Administration Insulin Glargine-yfgn 8 unit 06/26/23 09:00 06/27/23 08:43 Insulin Glargine-Yfgn 300 Unit/3 Ml Pen SUBQ 8 unit DAILY PEREZ Administration Insulin Human Lispro 2 - 10 unit 06/26/23 17:00 06/27/23 12:07 Insulin Lispro 300 Unit/3 Ml Pen SUBQ 6 unit 0800,1200,1700,2100 PEREZ Administration Protocol Magnesium Oxide 400 mg 06/17/23 09:00 06/27/23 08:44 Magnesium Oxide 400 Mg Tablet PO 400 mg DAILYWM PEREZ Administration Metoprolol Tartrate 25 mg 06/19/23 21:00 06/27/23 08:44 Metoprolol Tartrate 25 Mg Tablet PO 25 mg BID PEREZ Administration Multivitamins/Minerals 1 tab 06/22/23 14:00 06/27/23 08:44 Multivitamin W/Minerals Tablet PO 1 tab DAILYWM PEREZ Administration Trazodone HCl 25 mg 06/16/23 21:00 06/26/23 20:57 Trazodone 50 Mg Tablet PO 25 mg QPM PEREZ Administration - Lab Result Fish Bone Diagrams: 06/25/23 05:06 06/25/23 05:06 - Additional Planning My Orders: My Active Orders 06/26/23 17:00 Insulin Lispro [Humalog Kwikpen U-100] 2 - 10 unit SUBQ 0800,1200,1700,2100 Subjective - Subjective Patient Reports: Resting Comfortably, No Complaints Objective Vital Signs: Vital Signs - 24 hr 06/26/23 06/26/23 06/26/23 14:00 19:15 21:01 Temperature 36.3 C L Heart Rate [ 91 Brachial] Respiratory 16 Rate Blood Pressure 97/67 Blood Pressure 104/59 L [Right Brachial artery] O2 Saturation 92 If not protocol 5 : Oxygen Flow, liters/minute 06/26/23 06/27/23 21:03 00:03 Temperature 36.3 C L 36.5 C Heart Rate [ 80 95 Brachial] Respiratory 18 20 Rate Blood Pressure Blood Pressure 109/69 125/56 L [Right Brachial artery] O2 Saturation 94 93 If not protocol 5 5 : Oxygen Flow, liters/minute Oxygen O2 Source Nasal cannula I&O (Last 24 Hrs): Intake and Output Totals x24h 06/25/23 06/26/23 06/27/23 23:59 23:59 23:59 Intake Total 1560 940 240 Output Total 1000 0 400 Balance 560 940 -160 General: Other (Lethargic, napping with mouth wide open, wearing O2 n.c.) HEENT: Mucous membr. moist/pink, Other (Poor dental care) Neck: Supple Neuro: Other (Somnolent, awakens) Cardiovascular: No murmurs Respiratory: No respiratory distress (on suppl O2) Abdomen: Soft, No tenderness Extremities: No clubbing, Other (Trace pedal edema) - Results Results: Laboratory Results WBC 6.1 x10^3/uL (4.8-10.8) 06/25/23 05:06 RBC 4.58 10^6/uL (4.20-5.40) 06/25/23 05:06 Hgb 11.4 g/dL (12.0-16.0) L 06/25/23 05:06 Hct 41.3 % (37.0-47.0) 06/25/23 05:06 MCV 90.2 fL (81.0-99.0) 06/25/23 05:06 MCH 24.9 pg (27.0-31.0) L 06/25/23 05:06 MCHC 27.6 g/dL (32.0-36.0) L 06/25/23 05:06 RDW 15.9 % (12.0-15.0) H 06/25/23 05:06 Plt Count 253 10^3/uL (130-450) 06/25/23 05:06 MPV 10.1 fL (7.9-10.8) 06/25/23 05:06 Neut # (Auto) 3.0 10^3/uL (1.5-6.6) 06/25/23 05:06 Lymph # (Auto) 2.4 10^3/uL (1.5-3.5) 06/25/23 05:06 Lane # (Auto) 0.5 10^3/uL (0.0-1.0) 06/25/23 05:06 Eos # (Auto) 0.2 10^3/uL (0.0-0.7) 06/25/23 05:06 Baso # (Auto) 0.1 10^3/uL (0.0-0.1) 06/25/23 05:06 Absolute Nucleated RBC 0.00 x10^3/uL 06/25/23 05:06 Nucleated RBC % 0.0 /100WBC 06/25/23 05:06 Manual Slide Review Indicated 06/22/23 07:27 WBC Morphology NORMAL APPEARANCE (NORMAL) 06/13/23 05:25 Platelet Estimate NORMAL (130-450,000) (NORMAL) 06/22/23 07:27 Platelet Morphology NORMAL APPEARANCE (NORMAL) 06/22/23 07:27 RBC Morph Micro Appear 1+ HYPOCHROMASIA (NORMAL) 06/22/23 07:27 Bld Gas Analysis Time 0415 06/19/23 04:05 Sample Site RIGHT RADIAL 06/19/23 04:05 ABG pH 7.30 (7.35-7.45) L 06/19/23 04:05 ABG pCO2 87 mmHg (34-45) H* 06/19/23 04:05 ABG pO2 70 mmHg (80-100) L 06/19/23 04:05 ABG HCO3 42.1 mmol/L (22.0-26.0) H 06/19/23 04:05 ABG Total CO2 44.8 MMOL/L (21.0-29.0) H* 06/19/23 04:05 ABG O2 Saturation 92 % (94-98) L 06/19/23 04:05 ABG Base Excess 12.4 mmol/L (-2.0-3.0) H 06/19/23 04:05 Davie Test POSITIVE 06/19/23 04:05 VBG pH 7.348 (7.31-7.41) 06/18/23 05:47 Ionized Calcium 1.29 mmol/L (1.15-1.33) 06/18/23 05:47 Respiration Rate 16 b/min 06/14/23 15:30 O2 Delivery Device NON REBREATHER MASK 06/19/23 04:05 O2 Liters/Min 15.00 LPM 06/19/23 04:05 Vent Mode SYNCHRONOUS/TIMES 06/14/23 15:30 FiO2 50.00 06/14/23 15:30 EPAP 6 cmH2O 06/14/23 15:30 IPAP 14 cmH2O 06/14/23 15:30 Sodium 143 mmol/L (135-145) 06/25/23 05:06 Potassium 4.0 mmol/L (3.5-4.5) 06/25/23 05:06 Chloride 98 mmol/L (101-111) L 06/25/23 05:06 Carbon Dioxide 40 mmol/L (21-32) H* 06/25/23 05:06 Anion Gap 5.0 (6-13) L 06/25/23 05:06 BUN 9 mg/dL (6-20) 06/25/23 05:06 Creatinine 0.5 mg/dL (0.6-1.3) L 06/25/23 05:06 Estimated GFR (MDRD) 129 (>89) 06/25/23 05:06 Glucose 185 mg/dL (74-104) H 06/25/23 05:06 POC Whole Bld Glucose 258 mg/dL (70 - 100) H 06/27/23 11:55 Estimat Average Glucose 226 mg/dL (70-100) H 06/10/23 06:12 Hemoglobin A1c % 9.5 % (4.27-6.07) H 06/10/23 06:12 Calcium 10.5 mg/dL (8.5-10.3) H 06/25/23 05:06 Phosphorus 3.3 mg/dL (2.5-5.0) 06/18/23 05:47 Magnesium 1.7 mg/dL (1.7-2.3) 06/25/23 05:06 Total Bilirubin 0.9 mg/dL (0.2-1.0) 06/09/23 09:53 AST 13 IU/L (10-42) 06/09/23 09:53 ALT 10 IU/L (10-60) 06/09/23 09:53 Alkaline Phosphatase 76 IU/L (42-121) 06/09/23 09:53 Troponin I High Sens 36.4 ng/L (2.3-14.8) H* 06/11/23 11:31 B-Natriuretic Peptide 60 pg/mL (5-100) 06/20/23 06:06 Total Protein 6.4 g/dL (6.4-8.9) 06/09/23 09:53 Albumin 3.9 g/dL (3.2-5.5) 06/09/23 09:53 Globulin 2.5 g/dL (2.1-4.2) 06/09/23 09:53 Albumin/Globulin Ratio 1.6 (1.0-2.2) 06/09/23 09:53 TSH 1.74 uIU/mL (0.34-5.60) 06/10/23 06:12 Urine Color DARK YELLOW 06/09/23 12:25 Urine Clarity CLOUDY (CLEAR) 06/09/23 12:25 Urine pH 6.0 PH (5.0-7.5) 06/09/23 12:25 Ur Specific [place] 1.025 (1.002-1.030) 06/09/23 12:25 Urine Protein TRACE mg/dL (NEGATIVE) 06/09/23 12:25 Urine Glucose (UA) 250 mg/dL (NEGATIVE) H 06/09/23 12:25 Urine Ketones NEGATIVE mg/dL (NEGATIVE) 06/09/23 12:25 Urine Occult Blood LARGE (NEGATIVE) H 06/09/23 12:25 Urine Nitrite NEGATIVE (NEGATIVE) 06/09/23 12:25 Urine Bilirubin NEGATIVE (NEGATIVE) 06/09/23 12:25 Urine Urobilinogen 0.2 (NORMAL) E.U./dL (NORMAL) 06/09/23 12:25 Ur Leukocyte Esterase NEGATIVE (NEGATIVE) 06/09/23 12:25 Urine RBC TNTC /HPF (0-5) H 06/09/23 12:25 Urine WBC 4-5 /HPF (0-5) 06/09/23 12:25 Ur Squamous Epith Cells MOD Squamous (<= Few) H 06/09/23 12:25 Urine Crystals >50 Calcium Oxalate /LPF 06/09/23 12:25 Urine Bacteria Moderate /HPF (None Seen) H 06/09/23 12:25 Urine Mucus Few Strands 06/09/23 12:25 Ur Microscopic Review INDICATED 06/09/23 12:25 Urine Culture Comments NOT INDICATED 06/09/23 12:25 Nasal Adenovirus (PCR) NOT DETECTED 06/09/23 09:50 Nasal B. parapertussis DNA (PCR) NOT DETECTED 06/09/23 09:50 Nasal Coronavir 229E PCR NOT DETECTED 06/09/23 09:50 Nasal Coronavir HKU1 PCR NOT DETECTED 06/09/23 09:50 Nasal Coronavir NL63 PCR NOT DETECTED 06/09/23 09:50 Nasal Coronavir OC43 PCR NOT DETECTED 06/09/23 09:50 Nasal Enterovir/Rhinovir PCR NOT DETECTED 06/09/23 09:50 Nasal Influenza B PCR NOT DETECTED 06/09/23 09:50 Nasal Influenza A PCR NOT DETECTED 06/09/23 09:50 Nasal Parainfluen 1 PCR NOT DETECTED 06/09/23 09:50 Nasal Parainfluen 2 PCR NOT DETECTED 06/09/23 09:50 Nasal Parainfluen 3 PCR NOT DETECTED 06/09/23 09:50 Nasal Parainfluen 4 PCR NOT DETECTED 06/09/23 09:50 Nasal RSV (PCR) NOT DETECTED 06/09/23 09:50 Nasal Screen MRSA (PCR) NEGATIVE (NEGATIVE) 06/11/23 05:00 Nasal B.pertussis DNA PCR NOT DETECTED 06/09/23 09:50 Nasal C.pneumoniae (PCR) NOT DETECTED 06/09/23 09:50 Amish Human Metapneumo PCR NOT DETECTED 06/09/23 09:50 Nasal M.pneumoniae (PCR) NOT DETECTED 06/09/23 09:50 Nasal SARS-CoV-2 (PCR) NOT DETECTED 06/09/23 09:50 Last Dose Date UNKNOWN 06/13/23 05:25 Last Dose Time UNKNOWN 06/13/23 05:25 Vancomycin Peak 43.7 ug/mL (20.0-40.0) H 06/11/23 21:00 Vancomycin Trough 21.6 ug/mL 06/13/23 05:25 Sepsis Event Note (H) - Evaluation Current Stage of Sepsis: Ruled out
[2023-06-27] MEDS ORDERED: CARBOXYMETHYLCELLULOSE OPHTH DROPS EACHEYE PRN (14:00)
[2023-06-27] MEDS: GABAPENTIN 300 MG CAPSULE PO SCH (20:44)
[2023-06-27] MEDS: traZODone 50 MG TABLET PO SCH (20:44)
[2023-06-28] MEDS: METOPROLOL TARTRATE 25 MG TABLET PO SCH ×2 (08:27→21:12)
[2023-06-28] MEDS: guaiFENesin 600 MG TABLET PO SCH ×2 (08:27→21:11)
[2023-06-28] MEDS: ENOXAPARIN 40 MG/0.4 ML SYRINGE SUBQ SCH (08:27)
[2023-06-28] MEDS: MULTIVITAMIN W/MINERALS TABLET PO SCH (08:27)
[2023-06-28] MEDS: FAMOTIDINE 20 MG TABLET PO SCH ×2 (08:27→21:12)
[2023-06-28] MEDS: MAGNESIUM OXIDE 400 MG TABLET PO SCH (08:27)
[2023-06-28] MEDS: INSULIN LISPRO 300 UNIT/3 ML PEN SUBQ SCH ×4 (08:28→21:13)
[2023-06-28] MEDS: INSULIN GLARGINE-YFGN 300 UNIT/3 ML PEN SUBQ SCH ×2 (08:29→21:13)
--- NOTE | 2023-06-28 10:45 | PROVIDER PROGRESS NOTE ---
Assessment/Plan - Problem List (1) Acute respiratory failure with hypoxia and hypercarbia Assessment/Plan: Oxygen need was fluctuated between 2-5 L, to maintain oxygen saturation over 92%. Over the last 3 days, she has had good sats on 5L/min. And she has not needed CPAP Plan: Since patient oxygen need is <6 L for the past several days, patient can be discharged to a SNF for short-term rehab, and this plan has been in agreement with patient mom and sister. SW is awaiting authorization to get her into a SNF (2) CO2 narcosis Assessment/Plan: Mental status can fluctuate depends on the status of CO2 retention Evening and morning are challenging, as she was moving her oxygen oxy mask from time to time, causing desaturation and turning cyanotic and somnolent. 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 I had suspected her respiratory muscle weakness was from her Myotonic Dystrophy causing to hypoxia & hypercarbia also Plan: Supportive care and cont PT and OT (4) New onset a-fib Assessment/Plan: Metoprolol continues for rate control She is not a candidate for anticoagulant due to poor cognitive function and poor insight of her condition Telemetry was stopped Plan: Cont on metoprolol for rate control (5) DM type 2 (diabetes mellitus, type 2) Assessment/Plan: Plan: On DM diet, insulin long-acting and sliding scale Hypoglycemia precautions ordered (6) Pulmonary edema Assessment/Plan: Resolved. Has clear lungs Plan: Cont monitoring - Current Meds Current Meds: Current Medications Generic Name Dose Route Start Last Admin Trade Name Freq PRN Reason Stop Dose Admin Acetaminophen 650 mg 06/09/23 13:50 06/27/23 08:44 Acetaminophen 325 Mg Tablet PO 650 mg Q4HR PRN Administration Pain 1 to 4, or Fever Enoxaparin Sodium 40 mg 06/10/23 09:00 06/28/23 08:27 Enoxaparin 40 Mg/0.4 Ml Syringe SUBQ 40 mg DAILY PEREZ Administration Famotidine 20 mg 06/18/23 21:00 06/28/23 08:27 Famotidine 20 Mg Tablet PO 20 mg BID PEREZ Administration Gabapentin 300 mg 06/15/23 02:25 06/27/23 20:44 Gabapentin 300 Mg Capsule PO 300 mg QPM PEREZ Administration Guaifenesin 600 mg 06/12/23 14:00 06/28/23 08:27 Guaifenesin 600 Mg Tablet PO 600 mg BID PEREZ Administration Insulin Glargine-yfgn 20 unit 06/15/23 21:00 06/27/23 21:00 Insulin Glargine-Yfgn 300 Unit/3 Ml Pen SUBQ 20 unit QPM PEREZ Administration Insulin Glargine-yfgn 8 unit 06/26/23 09:00 06/28/23 08:29 Insulin Glargine-Yfgn 300 Unit/3 Ml Pen SUBQ 8 unit DAILY PEREZ Administration Insulin Human Lispro 3 - 11 unit 06/27/23 17:00 06/28/23 08:28 Insulin Lispro 300 Unit/3 Ml Pen SUBQ 3 unit 0800,1200,1700,2100 [facility] Administration Protocol Magnesium Oxide 400 mg 06/17/23 09:00 06/28/23 08:27 Magnesium Oxide 400 Mg Tablet PO 400 mg DAILYWM PEREZ Administration Metoprolol Tartrate 25 mg 06/19/23 21:00 06/28/23 08:27 Metoprolol Tartrate 25 Mg Tablet PO 25 mg BID PEREZ Administration Multivitamins/Minerals 1 tab 06/22/23 14:00 06/28/23 08:27 Multivitamin W/Minerals Tablet PO 1 tab DAILYWM PEREZ Administration Trazodone HCl 25 mg 06/16/23 21:00 06/27/23 20:44 Trazodone 50 Mg Tablet PO 25 mg QPM PEREZ Administration - Lab Result Fish Bone Diagrams: 06/25/23 05:06 06/25/23 05:06 - Additional Planning My Orders: My Active Orders 06/27/23 14:00 Carboxymethylcellulose 1% Opht [Refresh 1% Ophth Drops] 1 drops EACHEYE PRN PRN 06/27/23 17:00 Insulin Lispro [Humalog Kwikpen U-100] 3 - 11 unit SUBQ 0800,1200,1700,2100 Subjective - Subjective Patient Reports: Resting Comfortably, No Complaints Objective Vital Signs: Vital Signs - 24 hr 06/27/23 06/27/23 06/27/23 19:00 20:42 20:44 Temperature 37 C Heart Rate [ 93 Brachial] Respiratory 15 Rate Blood Pressure 128/57 L Blood Pressure 128/57 L [Right Brachial artery] O2 Saturation 95 If not protocol 4.5 4.5 : Oxygen Flow, liters/minute 06/28/23 06/28/23 06/28/23 01:21 PDT 08:27 08:31 Temperature 36.6 C Heart Rate [ 84 Brachial] Respiratory 18 Rate Blood Pressure 109/57 L Blood Pressure 101/47 L [Right Brachial artery] O2 Saturation 94 If not protocol 5 5 : Oxygen Flow, liters/minute 06/28/23 08:34 Temperature 36.4 C L Heart Rate [ 68 Brachial] Respiratory 18 Rate Blood Pressure Blood Pressure 109/57 L [Right Brachial artery] O2 Saturation 93 If not protocol 5 : Oxygen Flow, liters/minute Oxygen O2 Source Nasal cannula I&O (Last 24 Hrs): Intake and Output Totals x24h 06/26/23 06/27/23 06/28/23 23:59 23:59 22:59 Intake Total 940 640 240 Output Total 0 400 Balance 940 240 240 General: Other (Lethargic, napping in her recliner with chin on chest and mouth open. wearing O2 n.c.) HEENT: Other (Dry mucosa is mouth breathing) Neck: Supple, No JVD Neuro: Alert, Non Focal, Other (Weak voice when speaks) Cardiovascular: No murmurs Respiratory: No respiratory distress (on O2 n.c. suppl) Abdomen: Soft, Other (Obese) Extremities: No clubbing, Other (Trace pedal edema) - Results Results: Laboratory Results WBC 6.1 x10^3/uL (4.8-10.8) 06/25/23 05:06 RBC 4.58 10^6/uL (4.20-5.40) 06/25/23 05:06 Hgb 11.4 g/dL (12.0-16.0) L 06/25/23 05:06 Hct 41.3 % (37.0-47.0) 06/25/23 05:06 MCV 90.2 fL (81.0-99.0) 06/25/23 05:06 MCH 24.9 pg (27.0-31.0) L 06/25/23 05:06 MCHC 27.6 g/dL (32.0-36.0) L 06/25/23 05:06 RDW 15.9 % (12.0-15.0) H 06/25/23 05:06 Plt Count 253 10^3/uL (130-450) 06/25/23 05:06 MPV 10.1 fL (7.9-10.8) 06/25/23 05:06 Neut # (Auto) 3.0 10^3/uL (1.5-6.6) 06/25/23 05:06 Lymph # (Auto) 2.4 10^3/uL (1.5-3.5) 06/25/23 05:06 [place] # (Auto) 0.5 10^3/uL (0.0-1.0) 06/25/23 05:06 Eos # (Auto) 0.2 10^3/uL (0.0-0.7) 06/25/23 05:06 Baso # (Auto) 0.1 10^3/uL (0.0-0.1) 06/25/23 05:06 Absolute Nucleated RBC 0.00 x10^3/uL 06/25/23 05:06 Nucleated RBC % 0.0 /100WBC 06/25/23 05:06 Manual Slide Review Indicated 06/22/23 07:27 WBC Morphology NORMAL APPEARANCE (NORMAL) 06/13/23 05:25 Platelet Estimate NORMAL (130-450,000) (NORMAL) 06/22/23 07:27 Platelet Morphology NORMAL APPEARANCE (NORMAL) 06/22/23 07:27 RBC Morph Micro Appear 1+ HYPOCHROMASIA (NORMAL) 06/22/23 07:27 Bld Gas Analysis Time 0415 06/19/23 04:05 Sample Site RIGHT RADIAL 06/19/23 04:05 ABG pH 7.30 (7.35-7.45) L 06/19/23 04:05 ABG pCO2 87 mmHg (34-45) H* 06/19/23 04:05 ABG pO2 70 mmHg (80-100) L 06/19/23 04:05 ABG HCO3 42.1 mmol/L (22.0-26.0) H 06/19/23 04:05 ABG Total CO2 44.8 MMOL/L (21.0-29.0) H* 06/19/23 04:05 ABG O2 Saturation 92 % (94-98) L 06/19/23 04:05 ABG Base Excess 12.4 mmol/L (-2.0-3.0) H 06/19/23 04:05 [place] Test POSITIVE 06/19/23 04:05 VBG pH 7.348 (7.31-7.41) 06/18/23 05:47 Ionized Calcium 1.29 mmol/L (1.15-1.33) 06/18/23 05:47 Respiration Rate 16 b/min 06/14/23 15:30 O2 Delivery Device NON REBREATHER MASK 06/19/23 04:05 O2 Liters/Min 15.00 LPM 06/19/23 04:05 Vent Mode SYNCHRONOUS/TIMES 06/14/23 15:30 FiO2 50.00 06/14/23 15:30 EPAP 6 cmH2O 06/14/23 15:30 IPAP 14 cmH2O 06/14/23 15:30 Sodium 143 mmol/L (135-145) 06/25/23 05:06 Potassium 4.0 mmol/L (3.5-4.5) 06/25/23 05:06 Chloride 98 mmol/L (101-111) L 06/25/23 05:06 Carbon Dioxide 40 mmol/L (21-32) H* 06/25/23 05:06 Anion Gap 5.0 (6-13) L 06/25/23 05:06 BUN 9 mg/dL (6-20) 06/25/23 05:06 Creatinine 0.5 mg/dL (0.6-1.3) L 06/25/23 05:06 Estimated GFR (MDRD) 129 (>89) 06/25/23 05:06 Glucose 185 mg/dL (74-104) H 06/25/23 05:06 POC Whole Bld Glucose 154 mg/dL (70 - 100) H 06/28/23 07:32 Estimat Average Glucose 226 mg/dL (70-100) H 06/10/23 06:12 Hemoglobin A1c % 9.5 % (4.27-6.07) H 06/10/23 06:12 Calcium 10.5 mg/dL (8.5-10.3) H 06/25/23 05:06 Phosphorus 3.3 mg/dL (2.5-5.0) 06/18/23 05:47 Magnesium 1.7 mg/dL (1.7-2.3) 06/25/23 05:06 Total Bilirubin 0.9 mg/dL (0.2-1.0) 06/09/23 09:53 AST 13 IU/L (10-42) 06/09/23 09:53 ALT 10 IU/L (10-60) 06/09/23 09:53 Alkaline Phosphatase 76 IU/L (42-121) 06/09/23 09:53 Troponin I High Sens 36.4 ng/L (2.3-14.8) H* 06/11/23 11:31 B-Natriuretic Peptide 60 pg/mL (5-100) 06/20/23 06:06 Total Protein 6.4 g/dL (6.4-8.9) 06/09/23 09:53 Albumin 3.9 g/dL (3.2-5.5) 06/09/23 09:53 Globulin 2.5 g/dL (2.1-4.2) 06/09/23 09:53 Albumin/Globulin Ratio 1.6 (1.0-2.2) 06/09/23 09:53 TSH 1.74 uIU/mL (0.34-5.60) 06/10/23 06:12 Urine Color DARK YELLOW 06/09/23 12:25 Urine Clarity CLOUDY (CLEAR) 06/09/23 12:25 Urine pH 6.0 PH (5.0-7.5) 06/09/23 12:25 Ur Specific [place] 1.025 (1.002-1.030) 06/09/23 12:25 Urine Protein TRACE mg/dL (NEGATIVE) 06/09/23 12:25 Urine Glucose (UA) 250 mg/dL (NEGATIVE) H 06/09/23 12:25 Urine Ketones NEGATIVE mg/dL (NEGATIVE) 06/09/23 12:25 Urine Occult Blood LARGE (NEGATIVE) H 06/09/23 12:25 Urine Nitrite NEGATIVE (NEGATIVE) 06/09/23 12:25 Urine Bilirubin NEGATIVE (NEGATIVE) 06/09/23 12:25 Urine Urobilinogen 0.2 (NORMAL) E.U./dL (NORMAL) 06/09/23 12:25 Ur Leukocyte Esterase NEGATIVE (NEGATIVE) 06/09/23 12:25 Urine RBC TNTC /HPF (0-5) H 06/09/23 12:25 Urine WBC 4-5 /HPF (0-5) 06/09/23 12:25 Ur Squamous Epith Cells MOD Squamous (<= Few) H 06/09/23 12:25 Urine Crystals >50 Calcium Oxalate /LPF 06/09/23 12:25 Urine Bacteria Moderate /HPF (None Seen) H 06/09/23 12:25 Urine Mucus Few Strands 06/09/23 12:25 Ur Microscopic Review INDICATED 06/09/23 12:25 Urine Culture Comments NOT INDICATED 06/09/23 12:25 Nasal Adenovirus (PCR) NOT DETECTED 06/09/23 09:50 Nasal B. parapertussis DNA (PCR) NOT DETECTED 06/09/23 09:50 Nasal Coronavir 229E PCR NOT DETECTED 06/09/23 09:50 Nasal Coronavir HKU1 PCR NOT DETECTED 06/09/23 09:50 Nasal Coronavir NL63 PCR NOT DETECTED 06/09/23 09:50 Nasal Coronavir OC43 PCR NOT DETECTED 06/09/23 09:50 Nasal Enterovir/Rhinovir PCR NOT DETECTED 06/09/23 09:50 Nasal Influenza B PCR NOT DETECTED 06/09/23 09:50 Nasal Influenza A PCR NOT DETECTED 06/09/23 09:50 Nasal Parainfluen 1 PCR NOT DETECTED 06/09/23 09:50 Nasal Parainfluen 2 PCR NOT DETECTED 06/09/23 09:50 Nasal Parainfluen 3 PCR NOT DETECTED 06/09/23 09:50 Nasal Parainfluen 4 PCR NOT DETECTED 06/09/23 09:50 Nasal RSV (PCR) NOT DETECTED 06/09/23 09:50 Nasal Screen MRSA (PCR) NEGATIVE (NEGATIVE) 06/11/23 05:00 Nasal B.pertussis DNA PCR NOT DETECTED 06/09/23 09:50 Nasal C.pneumoniae (PCR) NOT DETECTED 06/09/23 09:50 Amish Human Metapneumo PCR NOT DETECTED 06/09/23 09:50 Nasal M.pneumoniae (PCR) NOT DETECTED 06/09/23 09:50 Nasal SARS-CoV-2 (PCR) NOT DETECTED 06/09/23 09:50 Last Dose Date UNKNOWN 06/13/23 05:25 Last Dose Time UNKNOWN 06/13/23 05:25 Vancomycin Peak 43.7 ug/mL (20.0-40.0) H 06/11/23 21:00 Vancomycin Trough 21.6 ug/mL 06/13/23 05:25 Sepsis Event Note (H) - Evaluation Current Stage of Sepsis: Ruled out
[2023-06-28] MEDS: traZODone 50 MG TABLET PO SCH (21:11)
[2023-06-28] MEDS: GABAPENTIN 300 MG CAPSULE PO SCH (21:12)
[2023-06-29] MEDS: ACETAMINOPHEN 325 MG TABLET PO PRN ×2 (04:09→23:24)
[2023-06-29] MEDS: FAMOTIDINE 20 MG TABLET PO SCH ×2 (09:52→20:35)
[2023-06-29] MEDS: MAGNESIUM OXIDE 400 MG TABLET PO SCH (09:52)
[2023-06-29] MEDS: guaiFENesin 600 MG TABLET PO SCH ×2 (09:52→20:36)
[2023-06-29] MEDS: MULTIVITAMIN W/MINERALS TABLET PO SCH (09:53)
[2023-06-29] MEDS: METOPROLOL TARTRATE 25 MG TABLET PO SCH ×2 (09:54→20:36)
[2023-06-29] MEDS: INSULIN GLARGINE-YFGN 300 UNIT/3 ML PEN SUBQ SCH ×2 (09:54→20:55)
[2023-06-29] MEDS: INSULIN LISPRO 300 UNIT/3 ML PEN SUBQ SCH ×6 (09:55→20:56)
[2023-06-29] MEDS: ENOXAPARIN 40 MG/0.4 ML SYRINGE SUBQ SCH (09:57)
[2023-06-29] MEDS ORDERED: INSULIN GLARGINE-YFGN 300 UNIT/3 ML PEN SUBQ ONE (10:33)
--- NOTE | 2023-06-29 16:21 | PROVIDER PROGRESS NOTE ---
Assessment/Plan - Problem List (1) Acute respiratory failure with hypoxia and hypercarbia Assessment/Plan: Oxygen need was fluctuated between 3.5-5 L, to maintain oxygen saturation over 92%. Over the last 3 days, she has had good sats on 5L/min. And she has not needed CPAP Plan: Since patient oxygen need is <6 L for the past several days, patient can be discharged to a SNF for short-term rehab, and this plan has been in agreement with patient mom and sister. SW is awaiting authorization to get her into a SNF (2) CO2 narcosis Assessment/Plan: Mental status can fluctuate depends on the status of CO2 retention Evening and morning are challenging, as she was moving her oxygen oxy mask from time to time, causing desaturation and turning cyanotic and somnolent. 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 I had suspected her respiratory muscle weakness was from her Myotonic Dystrophy causing to hypoxia & hypercarbia also Plan: Supportive care and cont PT and OT (4) New onset a-fib Assessment/Plan: Metoprolol continues for rate control She is not a candidate for anticoagulant due to poor cognitive function and poor insight of her condition Telemetry was stopped Plan: Cont on metoprolol for rate control (5) DM type 2 (diabetes mellitus, type 2) Assessment/Plan: Plan: On DM diet, insulin long-acting and sliding scale, hypoglycemia precautions ordered Today I added 5U Insulin w/ meals (6) Pulmonary edema Assessment/Plan: Resolved. Has clear lungs Plan: Cont monitoring - Current Meds Current Meds: Current Medications Generic Name Dose Route Start Last Admin Trade Name Freq PRN Reason Stop Dose Admin Acetaminophen 650 mg 06/09/23 13:50 06/29/23 04:09 Acetaminophen 325 Mg Tablet PO 650 mg Q4HR PRN Administration Pain 1 to 4, or Fever Carboxymethylcellulose 1 drops 06/27/23 14:00 06/28/23 14:42 Carboxymethylcellulose Ophth Drops EACHEYE 1 drops PRN PRN Administration Dry Eye Enoxaparin Sodium 40 mg 06/10/23 09:00 06/29/23 09:57 Enoxaparin 40 Mg/0.4 Ml Syringe SUBQ 40 mg DAILY PEREZ Administration Famotidine 20 mg 06/18/23 21:00 06/29/23 09:52 Famotidine 20 Mg Tablet PO 20 mg BID PEREZ Administration Gabapentin 300 mg 06/15/23 02:25 06/28/23 21:12 Gabapentin 300 Mg Capsule PO 300 mg QPM PEREZ Administration Guaifenesin 600 mg 06/12/23 14:00 06/29/23 09:52 Guaifenesin 600 Mg Tablet PO 600 mg BID PEREZ Administration Insulin Glargine-yfgn 20 unit 06/15/23 21:00 06/28/23 21:13 Insulin Glargine-Yfgn 300 Unit/3 Ml Pen SUBQ 20 unit QPM PEREZ Administration Insulin Human Lispro 3 - 11 unit 06/27/23 17:00 06/29/23 12:32 Insulin Lispro 300 Unit/3 Ml Pen SUBQ 7 unit 0800,1200,1700,[facility] Administration Protocol Insulin Human Lispro 5 unit 06/29/23 12:00 06/29/23 12:31 Insulin Lispro 300 Unit/3 Ml Pen SUBQ 5 [facility] Administration Protocol Magnesium Oxide 400 mg 06/17/23 09:00 06/29/23 09:52 Magnesium Oxide 400 Mg Tablet PO 400 mg DAILYWM PEREZ Administration Metoprolol Tartrate 25 mg 06/19/23 21:00 06/29/23 09:54 Metoprolol Tartrate 25 Mg Tablet PO 25 mg BID PEREZ Administration Multivitamins/Minerals 1 tab 06/22/23 14:00 06/29/23 09:53 Multivitamin W/Minerals Tablet PO 1 tab DAILYWM PEREZ Administration Trazodone HCl 25 mg 06/16/23 21:00 06/28/23 21:11 Trazodone 50 Mg Tablet PO 25 mg QPM PEREZ Administration - Lab Result Fish Bone Diagrams: 06/25/23 05:06 06/25/23 05:06 - Additional Planning My Orders: My Active Orders 06/29/23 12:00 Insulin Lispro [Humalog Kwikpen U-100] 5 unit SUBQ TIDWM 06/30/23 09:00 Insulin Glargine-Yfgn [Semglee] 10 unit SUBQ DAILY Subjective - Subjective Nursing Reports: No Complaints (Mostly naps, unless she is stimulated) Objective Vital Signs: Vital Signs - 24 hr 06/28/23 06/28/23 06/28/23 17:14 19:05 21:10 Temperature 36.8 C 36.9 C Heart Rate [ 90 87 Brachial] Respiratory 16 16 Rate Blood Pressure Blood Pressure 115/75 123/47 L [Right Brachial artery] O2 Saturation 95 95 If not protocol 5 5 5 : Oxygen Flow, liters/minute 06/28/23 06/29/23 06/29/23 21:12 05:26 07:27 Temperature 36.6 C 36.4 C L Heart Rate [ 85 86 Brachial] Respiratory 16 16 Rate Blood Pressure 123/47 L Blood Pressure 125/62 118/65 [Right Brachial artery] O2 Saturation 96 86 L If not protocol 5 3 : Oxygen Flow, liters/minute 06/29/23 06/29/23 06/29/23 07:41 07:45 09:54 Temperature Heart Rate [ Brachial] Respiratory Rate Blood Pressure 116/54 L Blood Pressure [Right Brachial artery] O2 Saturation 92 If not protocol 5 5 : Oxygen Flow, liters/minute Oxygen O2 Source Nasal cannula I&O (Last 24 Hrs): Intake and Output Totals x24h 06/28/23 06/28/23 06/29/23 00:59 23:59 23:59 Intake Total 900 Output Total Balance 900 General: Other (Lethargic, asleep with mouth open, wearing O2 by n.c.) HEENT: Other (Dry mouth, poor dental hygeine) Neuro: Oriented Times 3, Other (Lethargic, voice is weak when speaking) Cardiovascular: No murmurs (distant heart sounds due to large breasts) Abdomen: Soft, No tenderness, Other (Obese) Extremities: No clubbing, Other (Trace pedal edema) - Results Results: Laboratory Results WBC 6.1 x10^3/uL (4.8-10.8) 06/25/23 05:06 RBC 4.58 10^6/uL (4.20-5.40) 06/25/23 05:06 Hgb 11.4 g/dL (12.0-16.0) L 06/25/23 05:06 Hct 41.3 % (37.0-47.0) 06/25/23 05:06 MCV 90.2 fL (81.0-99.0) 06/25/23 05:06 MCH 24.9 pg (27.0-31.0) L 06/25/23 05:06 MCHC 27.6 g/dL (32.0-36.0) L 06/25/23 05:06 RDW 15.9 % (12.0-15.0) H 06/25/23 05:06 Plt Count 253 10^3/uL (130-450) 06/25/23 05:06 MPV 10.1 fL (7.9-10.8) 06/25/23 05:06 Neut # (Auto) 3.0 10^3/uL (1.5-6.6) 06/25/23 05:06 Lymph # (Auto) 2.4 10^3/uL (1.5-3.5) 06/25/23 05:06 [place] # (Auto) 0.5 10^3/uL (0.0-1.0) 06/25/23 05:06 Eos # (Auto) 0.2 10^3/uL (0.0-0.7) 06/25/23 05:06 Baso # (Auto) 0.1 10^3/uL (0.0-0.1) 06/25/23 05:06 Absolute Nucleated RBC 0.00 x10^3/uL 06/25/23 05:06 Nucleated RBC % 0.0 /100WBC 06/25/23 05:06 Manual Slide Review Indicated 06/22/23 07:27 WBC Morphology NORMAL APPEARANCE (NORMAL) 06/13/23 05:25 Platelet Estimate NORMAL (130-450,000) (NORMAL) 06/22/23 07:27 Platelet Morphology NORMAL APPEARANCE (NORMAL) 06/22/23 07:27 RBC Morph Micro Appear 1+ HYPOCHROMASIA (NORMAL) 06/22/23 07:27 Bld Gas Analysis Time 0415 06/19/23 04:05 Sample Site RIGHT RADIAL 06/19/23 04:05 ABG pH 7.30 (7.35-7.45) L 06/19/23 04:05 ABG pCO2 87 mmHg (34-45) H* 06/19/23 04:05 ABG pO2 70 mmHg (80-100) L 06/19/23 04:05 ABG HCO3 42.1 mmol/L (22.0-26.0) H 06/19/23 04:05 ABG Total CO2 44.8 MMOL/L (21.0-29.0) H* 06/19/23 04:05 ABG O2 Saturation 92 % (94-98) L 06/19/23 04:05 ABG Base Excess 12.4 mmol/L (-2.0-3.0) H 06/19/23 04:05 [place] Test POSITIVE 06/19/23 04:05 VBG pH 7.348 (7.31-7.41) 06/18/23 05:47 Ionized Calcium 1.29 mmol/L (1.15-1.33) 06/18/23 05:47 Respiration Rate 16 b/min 06/14/23 15:30 O2 Delivery Device NON REBREATHER MASK 06/19/23 04:05 O2 Liters/Min 15.00 LPM 06/19/23 04:05 Vent Mode SYNCHRONOUS/TIMES 06/14/23 15:30 FiO2 50.00 06/14/23 15:30 EPAP 6 cmH2O 06/14/23 15:30 IPAP 14 cmH2O 06/14/23 15:30 Sodium 143 mmol/L (135-145) 06/25/23 05:06 Potassium 4.0 mmol/L (3.5-4.5) 06/25/23 05:06 Chloride 98 mmol/L (101-111) L 06/25/23 05:06 Carbon Dioxide 40 mmol/L (21-32) H* 06/25/23 05:06 Anion Gap 5.0 (6-13) L 06/25/23 05:06 BUN 9 mg/dL (6-20) 06/25/23 05:06 Creatinine 0.5 mg/dL (0.6-1.3) L 06/25/23 05:06 Estimated GFR (MDRD) 129 (>89) 06/25/23 05:06 Glucose 185 mg/dL (74-104) H 06/25/23 05:06 POC Whole Bld Glucose 237 mg/dL (70 - 100) H 06/29/23 12:30 Estimat Average Glucose 226 mg/dL (70-100) H 06/10/23 06:12 Hemoglobin A1c % 9.5 % (4.27-6.07) H 06/10/23 06:12 Calcium 10.5 mg/dL (8.5-10.3) H 06/25/23 05:06 Phosphorus 3.3 mg/dL (2.5-5.0) 06/18/23 05:47 Magnesium 1.7 mg/dL (1.7-2.3) 06/25/23 05:06 Total Bilirubin 0.9 mg/dL (0.2-1.0) 06/09/23 09:53 AST 13 IU/L (10-42) 06/09/23 09:53 ALT 10 IU/L (10-60) 06/09/23 09:53 Alkaline Phosphatase 76 IU/L (42-121) 06/09/23 09:53 Troponin I High Sens 36.4 ng/L (2.3-14.8) H* 06/11/23 11:31 B-Natriuretic Peptide 60 pg/mL (5-100) 06/20/23 06:06 Total Protein 6.4 g/dL (6.4-8.9) 06/09/23 09:53 Albumin 3.9 g/dL (3.2-5.5) 06/09/23 09:53 Globulin 2.5 g/dL (2.1-4.2) 06/09/23 09:53 Albumin/Globulin Ratio 1.6 (1.0-2.2) 06/09/23 09:53 TSH 1.74 uIU/mL (0.34-5.60) 06/10/23 06:12 Urine Color DARK YELLOW 06/09/23 12:25 Urine Clarity CLOUDY (CLEAR) 06/09/23 12:25 Urine pH 6.0 PH (5.0-7.5) 06/09/23 12:25 Ur Specific [place] 1.025 (1.002-1.030) 06/09/23 12:25 Urine Protein TRACE mg/dL (NEGATIVE) 06/09/23 12:25 Urine Glucose (UA) 250 mg/dL (NEGATIVE) H 06/09/23 12:25 Urine Ketones NEGATIVE mg/dL (NEGATIVE) 06/09/23 12:25 Urine Occult Blood LARGE (NEGATIVE) H 06/09/23 12:25 Urine Nitrite NEGATIVE (NEGATIVE) 06/09/23 12:25 Urine Bilirubin NEGATIVE (NEGATIVE) 06/09/23 12:25 Urine Urobilinogen 0.2 (NORMAL) E.U./dL (NORMAL) 06/09/23 12:25 Ur Leukocyte Esterase NEGATIVE (NEGATIVE) 06/09/23 12:25 Urine RBC TNTC /HPF (0-5) H 06/09/23 12:25 Urine WBC 4-5 /HPF (0-5) 06/09/23 12:25 Ur Squamous Epith Cells MOD Squamous (<= Few) H 06/09/23 12:25 Urine Crystals >50 Calcium Oxalate /LPF 06/09/23 12:25 Urine Bacteria Moderate /HPF (None Seen) H 06/09/23 12:25 Urine Mucus Few Strands 06/09/23 12:25 Ur Microscopic Review INDICATED 06/09/23 12:25 Urine Culture Comments NOT INDICATED 06/09/23 12:25 Nasal Adenovirus (PCR) NOT DETECTED 06/09/23 09:50 Nasal B. parapertussis DNA (PCR) NOT DETECTED 06/09/23 09:50 Nasal Coronavir 229E PCR NOT DETECTED 06/09/23 09:50 Nasal Coronavir HKU1 PCR NOT DETECTED 06/09/23 09:50 Nasal Coronavir NL63 PCR NOT DETECTED 06/09/23 09:50 Nasal Coronavir OC43 PCR NOT DETECTED 06/09/23 09:50 Nasal Enterovir/Rhinovir PCR NOT DETECTED 06/09/23 09:50 Nasal Influenza B PCR NOT DETECTED 06/09/23 09:50 Nasal Influenza A PCR NOT DETECTED 06/09/23 09:50 Nasal Parainfluen 1 PCR NOT DETECTED 06/09/23 09:50 Nasal Parainfluen 2 PCR NOT DETECTED 06/09/23 09:50 Nasal Parainfluen 3 PCR NOT DETECTED 06/09/23 09:50 Nasal Parainfluen 4 PCR NOT DETECTED 06/09/23 09:50 Nasal RSV (PCR) NOT DETECTED 06/09/23 09:50 Nasal Screen MRSA (PCR) NEGATIVE (NEGATIVE) 06/11/23 05:00 Nasal B.pertussis DNA PCR NOT DETECTED 06/09/23 09:50 Nasal C.pneumoniae (PCR) NOT DETECTED 06/09/23 09:50 Amish Human Metapneumo PCR NOT DETECTED 06/09/23 09:50 Nasal M.pneumoniae (PCR) NOT DETECTED 06/09/23 09:50 Nasal SARS-CoV-2 (PCR) NOT DETECTED 06/09/23 09:50 Last Dose Date UNKNOWN 06/13/23 05:25 Last Dose Time UNKNOWN 06/13/23 05:25 Vancomycin Peak 43.7 ug/mL (20.0-40.0) H 06/11/23 21:00 Vancomycin Trough 21.6 ug/mL 06/13/23 05:25 Sepsis Event Note (H) - Evaluation Current Stage of Sepsis: Ruled out
[2023-06-29] MEDS: traZODone 50 MG TABLET PO SCH (20:35)
[2023-06-29] MEDS: GABAPENTIN 300 MG CAPSULE PO SCH (20:36)
[2023-06-30] MEDS: guaiFENesin 600 MG TABLET PO SCH ×2 (08:31→21:00)
[2023-06-30] MEDS: MULTIVITAMIN W/MINERALS TABLET PO SCH (08:31)
[2023-06-30] MEDS: METOPROLOL TARTRATE 25 MG TABLET PO SCH ×2 (08:31→21:01)
[2023-06-30] MEDS: FAMOTIDINE 20 MG TABLET PO SCH ×2 (08:31→21:00)
[2023-06-30] MEDS: INSULIN GLARGINE-YFGN 300 UNIT/3 ML PEN SUBQ SCH ×2 (08:32→21:00)
[2023-06-30] MEDS: MAGNESIUM OXIDE 400 MG TABLET PO SCH (08:33)
[2023-06-30] MEDS: INSULIN LISPRO 300 UNIT/3 ML PEN SUBQ SCH ×7 (08:33→21:01)
[2023-06-30] MEDS: ENOXAPARIN 40 MG/0.4 ML SYRINGE SUBQ SCH (08:33)
--- NOTE | 2023-06-30 12:21 | PROVIDER PROGRESS NOTE ---
Assessment/Plan - Problem List (1) Acute respiratory failure with hypoxia Assessment/Plan: (1) Acute respiratory failure with hypoxia and hypercarbia Oxygen need was fluctuated between 3.5-5 L, to maintain oxygen saturation over 92%. Over the last 3 days, she has had good sats on 5L/min for the past 48 pablo rs. And she has not needed CPAP. Patient is medically stable to discharge to SNF on 5L of O2. (2) CO2 narcosis Mental status can fluctuate depends on the status of CO2 retention Evening and morning are challenging, as she was moving her oxygen oxy mask from time to time, causing desaturation and turning cyanotic and somnolent. 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 Continued PT/OT. Anticipate DC to SNF. (4) New onset a-fib Continue metoprolol for rate control. Was determined that she would not be a good candidate for anticoagulation due to poor cognitive function and insight. Further discussions can be held outpatient. (5) DM type 2 (diabetes mellitus, type 2) Remains on 5 units of insulin with meals + SSI. Nutrition is also following. (6) Pulmonary edema Resolved after adequate diuresis. Disposition: Pending placement. - Current Meds Current Meds: Current Medications Generic Name Dose Route Start Last Admin Trade Name Freq PRN Reason Stop Dose Admin Acetaminophen 650 mg 06/09/23 13:50 06/29/23 23:24 Acetaminophen 325 Mg Tablet PO 650 mg Q4HR PRN Administration Pain 1 to 4, or Fever Carboxymethylcellulose 1 drops 06/27/23 14:00 06/28/23 14:42 Carboxymethylcellulose Ophth Drops EACHEYE 1 drops PRN PRN Administration Dry Eye Enoxaparin Sodium 40 mg 06/10/23 09:00 06/30/23 08:33 Enoxaparin 40 Mg/0.4 Ml Syringe SUBQ 40 mg DAILY PEREZ Administration Famotidine 20 mg 06/18/23 21:00 06/30/23 08:31 Famotidine 20 Mg Tablet PO 20 mg BID PEREZ Administration Gabapentin 300 mg 06/15/23 02:25 06/29/23 20:36 Gabapentin 300 Mg Capsule PO 300 mg QPM PEREZ Administration Guaifenesin 600 mg 06/12/23 14:00 06/30/23 08:31 Guaifenesin 600 Mg Tablet PO 600 mg BID PEREZ Administration Insulin Glargine-yfgn 20 unit 06/15/23 21:00 06/29/23 20:55 Insulin Glargine-Yfgn 300 Unit/3 Ml Pen SUBQ 20 unit QPM PEREZ Administration Insulin Glargine-yfgn 10 unit 06/30/23 09:00 06/30/23 08:32 Insulin Glargine-Yfgn 300 Unit/3 Ml Pen SUBQ 10 unit DAILY PEREZ Administration Insulin Human Lispro 3 - 11 unit 06/27/23 17:00 06/30/23 12:04 Insulin Lispro 300 Unit/3 Ml Pen SUBQ 3 unit 0800,1200,1700,2100 PEREZ Administration Protocol Insulin Human Lispro 5 unit 06/29/23 12:00 06/30/23 12:07 Insulin Lispro 300 Unit/3 Ml Pen SUBQ 5 unit TIDWM PEREZ Administration Protocol Magnesium Oxide 400 mg 06/17/23 09:00 06/30/23 08:33 Magnesium Oxide 400 Mg Tablet PO 400 mg DAILYWM PEREZ Administration Metoprolol Tartrate 25 mg 06/19/23 21:00 06/30/23 08:31 Metoprolol Tartrate 25 Mg Tablet PO 25 mg BID PEREZ Administration Multivitamins/Minerals 1 tab 06/22/23 14:00 06/30/23 08:31 Multivitamin W/Minerals Tablet PO 1 tab DAILYWM PEREZ Administration Trazodone HCl 25 mg 06/16/23 21:00 06/29/23 20:35 Trazodone 50 Mg Tablet PO 25 mg QPM PEREZ Administration - Lab Result Fish Bone Diagrams: 06/25/23 05:06 06/25/23 05:06 Subjective - Subjective Patient Reports: Feeling Better, No Complaints, Shortness of Breath Objective Vital Signs: Vital Signs - 24 hr 06/29/23 06/29/23 06/29/23 16:00 19:00 20:36 Temperature 36.6 C Heart Rate [ 93 Brachial] Respiratory 16 Rate Blood Pressure 135/63 H Blood Pressure 113/61 [Right Brachial artery] O2 Saturation 92 90 L If not protocol 5 5 : Oxygen Flow, liters/minute 06/29/23 06/30/23 06/30/23 21:00 00:21 07:32 Temperature 36.9 C 36.9 C Heart Rate [ 87 82 Brachial] Respiratory 16 16 Rate Blood Pressure Blood Pressure 115/62 106/55 L [Right Brachial artery] O2 Saturation 96 92 If not protocol 5 5 5 : Oxygen Flow, liters/minute 06/30/23 06/30/23 07:40 08:31 Temperature Heart Rate [ Brachial] Respiratory Rate Blood Pressure 106/55 L Blood Pressure [Right Brachial artery] O2 Saturation If not protocol 5 : Oxygen Flow, liters/minute Oxygen O2 Source Nasal cannula I&O (Last 24 Hrs): Intake and Output Totals x24h 06/28/23 06/29/23 06/30/23 23:59 23:59 23:59 Intake Total 1230 480 Balance 1230 480 General: Alert, Oriented x3, Cooperative, No acute distress HEENT: Atraumatic, PERRLA, EOMI Neck: Supple, No JVD, No thyromegaly, +2 carotid pulse wo bruit, No LAD Lymphatic: no adenopathy Neuro: Alert, CN 2-12 Grossly Intact, Oriented Times 3 Cardiovascular: Regular rate, Normal S1, Normal S2, No murmurs Respiratory: Chest non-tender, No respiratory distress, Breath sounds nml Abdomen: Normal bowel sounds, Soft, No tenderness, No hepatospenomegaly, No masses Genitourinary: Normal External, No Bleeding, No Discharge, No Tenderness, No Adnexal Mass Rectal: Non-Tender Extremities: No clubbing, No cyanosis, No edema, Normal pulses, No tenderness/swelling Skin: No rashes, No breakdown, No significant lesion - Results Results: Laboratory Results WBC 6.1 x10^3/uL (4.8-10.8) 06/25/23 05:06 RBC 4.58 10^6/uL (4.20-5.40) 06/25/23 05:06 Hgb 11.4 g/dL (12.0-16.0) L 06/25/23 05:06 Hct 41.3 % (37.0-47.0) 06/25/23 05:06 MCV 90.2 fL (81.0-99.0) 06/25/23 05:06 MCH 24.9 pg (27.0-31.0) L 06/25/23 05:06 MCHC 27.6 g/dL (32.0-36.0) L 06/25/23 05:06 RDW 15.9 % (12.0-15.0) H 06/25/23 05:06 Plt Count 253 10^3/uL (130-450) 06/25/23 05:06 MPV 10.1 fL (7.9-10.8) 06/25/23 05:06 Neut # (Auto) 3.0 10^3/uL (1.5-6.6) 06/25/23 05:06 Lymph # (Auto) 2.4 10^3/uL (1.5-3.5) 06/25/23 05:06 Garden # (Auto) 0.5 10^3/uL (0.0-1.0) 06/25/23 05:06 Eos # (Auto) 0.2 10^3/uL (0.0-0.7) 06/25/23 05:06 Baso # (Auto) 0.1 10^3/uL (0.0-0.1) 06/25/23 05:06 Absolute Nucleated RBC 0.00 x10^3/uL 06/25/23 05:06 Nucleated RBC % 0.0 /100WBC 06/25/23 05:06 Manual Slide Review Indicated 06/22/23 07:27 WBC Morphology NORMAL APPEARANCE (NORMAL) 06/13/23 05:25 Platelet Estimate NORMAL (130-450,000) (NORMAL) 06/22/23 07:27 Platelet Morphology NORMAL APPEARANCE (NORMAL) 06/22/23 07:27 RBC Morph Micro Appear 1+ HYPOCHROMASIA (NORMAL) 06/22/23 07:27 Bld Gas Analysis Time 0415 06/19/23 04:05 Sample Site RIGHT RADIAL 06/19/23 04:05 ABG pH 7.30 (7.35-7.45) L 06/19/23 04:05 ABG pCO2 87 mmHg (34-45) H* 06/19/23 04:05 ABG pO2 70 mmHg (80-100) L 06/19/23 04:05 ABG HCO3 42.1 mmol/L (22.0-26.0) H 06/19/23 04:05 ABG Total CO2 44.8 MMOL/L (21.0-29.0) H* 06/19/23 04:05 ABG O2 Saturation 92 % (94-98) L 06/19/23 04:05 ABG Base Excess 12.4 mmol/L (-2.0-3.0) H 06/19/23 04:05 [place]ie Test POSITIVE 06/19/23 04:05 VBG pH 7.348 (7.31-7.41) 06/18/23 05:47 Ionized Calcium 1.29 mmol/L (1.15-1.33) 06/18/23 05:47 Respiration Rate 16 b/min 06/14/23 15:30 O2 Delivery Device NON REBREATHER MASK 06/19/23 04:05 O2 Liters/Min 15.00 LPM 06/19/23 04:05 Vent Mode SYNCHRONOUS/TIMES 06/14/23 15:30 FiO2 50.00 06/14/23 15:30 EPAP 6 cmH2O 06/14/23 15:30 IPAP 14 cmH2O 06/14/23 15:30 Sodium 143 mmol/L (135-145) 06/25/23 05:06 Potassium 4.0 mmol/L (3.5-4.5) 06/25/23 05:06 Chloride 98 mmol/L (101-111) L 06/25/23 05:06 Carbon Dioxide 40 mmol/L (21-32) H* 06/25/23 05:06 Anion Gap 5.0 (6-13) L 06/25/23 05:06 BUN 9 mg/dL (6-20) 06/25/23 05:06 Creatinine 0.5 mg/dL (0.6-1.3) L 06/25/23 05:06 Estimated GFR (MDRD) 129 (>89) 06/25/23 05:06 Glucose 185 mg/dL (74-104) H 06/25/23 05:06 POC Whole Bld Glucose 165 mg/dL (70 - 100) H 06/30/23 11:03 Estimat Average Glucose 226 mg/dL (70-100) H 06/10/23 06:12 Hemoglobin A1c % 9.5 % (4.27-6.07) H 06/10/23 06:12 Calcium 10.5 mg/dL (8.5-10.3) H 06/25/23 05:06 Phosphorus 3.3 mg/dL (2.5-5.0) 06/18/23 05:47 Magnesium 1.7 mg/dL (1.7-2.3) 06/25/23 05:06 Total Bilirubin 0.9 mg/dL (0.2-1.0) 06/09/23 09:53 AST 13 IU/L (10-42) 06/09/23 09:53 ALT 10 IU/L (10-60) 06/09/23 09:53 Alkaline Phosphatase 76 IU/L (42-121) 06/09/23 09:53 Troponin I High Sens 36.4 ng/L (2.3-14.8) H* 06/11/23 11:31 B-Natriuretic Peptide 60 pg/mL (5-100) 06/20/23 06:06 Total Protein 6.4 g/dL (6.4-8.9) 06/09/23 09:53 Albumin 3.9 g/dL (3.2-5.5) 06/09/23 09:53 Globulin 2.5 g/dL (2.1-4.2) 06/09/23 09:53 Albumin/Globulin Ratio 1.6 (1.0-2.2) 06/09/23 09:53 TSH 1.74 uIU/mL (0.34-5.60) 06/10/23 06:12 Urine Color DARK YELLOW 06/09/23 12:25 Urine Clarity CLOUDY (CLEAR) 06/09/23 12:25 Urine pH 6.0 PH (5.0-7.5) 06/09/23 12:25 Ur Specific [place] 1.025 (1.002-1.030) 06/09/23 12:25 Urine Protein TRACE mg/dL (NEGATIVE) 06/09/23 12:25 Urine Glucose (UA) 250 mg/dL (NEGATIVE) H 06/09/23 12:25 Urine Ketones NEGATIVE mg/dL (NEGATIVE) 06/09/23 12:25 Urine Occult Blood LARGE (NEGATIVE) H 06/09/23 12:25 Urine Nitrite NEGATIVE (NEGATIVE) 06/09/23 12:25 Urine Bilirubin NEGATIVE (NEGATIVE) 06/09/23 12:25 Urine Urobilinogen 0.2 (NORMAL) E.U./dL (NORMAL) 06/09/23 12:25 Ur Leukocyte Esterase NEGATIVE (NEGATIVE) 06/09/23 12:25 Urine RBC TNTC /HPF (0-5) H 06/09/23 12:25 Urine WBC 4-5 /HPF (0-5) 06/09/23 12:25 Ur Squamous Epith Cells MOD Squamous (<= Few) H 06/09/23 12:25 Urine Crystals >50 Calcium Oxalate /LPF 06/09/23 12:25 Urine Bacteria Moderate /HPF (None Seen) H 06/09/23 12:25 Urine Mucus Few Strands 06/09/23 12:25 Ur Microscopic Review INDICATED 06/09/23 12:25 Urine Culture Comments NOT INDICATED 06/09/23 12:25 Nasal Adenovirus (PCR) NOT DETECTED 06/09/23 09:50 Nasal B. parapertussis DNA (PCR) NOT DETECTED 06/09/23 09:50 Nasal Coronavir 229E PCR NOT DETECTED 06/09/23 09:50 Nasal Coronavir HKU1 PCR NOT DETECTED 06/09/23 09:50 Nasal Coronavir NL63 PCR NOT DETECTED 06/09/23 09:50 Nasal Coronavir OC43 PCR NOT DETECTED 06/09/23 09:50 Nasal Enterovir/Rhinovir PCR NOT DETECTED 06/09/23 09:50 Nasal Influenza B PCR NOT DETECTED 06/09/23 09:50 Nasal Influenza A PCR NOT DETECTED 06/09/23 09:50 Nasal Parainfluen 1 PCR NOT DETECTED 06/09/23 09:50 Nasal Parainfluen 2 PCR NOT DETECTED 06/09/23 09:50 Nasal Parainfluen 3 PCR NOT DETECTED 06/09/23 09:50 Nasal Parainfluen 4 PCR NOT DETECTED 06/09/23 09:50 Nasal RSV (PCR) NOT DETECTED 06/09/23 09:50 Nasal Screen MRSA (PCR) NEGATIVE (NEGATIVE) 06/11/23 05:00 Nasal B.pertussis DNA PCR NOT DETECTED 06/09/23 09:50 Nasal C.pneumoniae (PCR) NOT DETECTED 06/09/23 09:50 Amish Human Metapneumo PCR NOT DETECTED 06/09/23 09:50 Nasal M.pneumoniae (PCR) NOT DETECTED 06/09/23 09:50 Nasal SARS-CoV-2 (PCR) NOT DETECTED 06/09/23 09:50 Last Dose Date UNKNOWN 06/13/23 05:25 Last Dose Time UNKNOWN 06/13/23 05:25 Vancomycin Peak 43.7 ug/mL (20.0-40.0) H 06/11/23 21:00 Vancomycin Trough 21.6 ug/mL 06/13/23 05:25 Sepsis Event Note (H) - Evaluation Current Stage of Sepsis: Ruled out ABX Reporting Has patient been on IV antibiotics over the past 48 hours?: No Current Medications - Current Medications Current Medications: Active Medications Generic Name Dose Route Start Last Admin Trade Name Freq PRN Reason Stop Dose Admin Acetaminophen 650 mg 06/09/23 13:50 06/29/23 23:24 Acetaminophen 325 Mg Tablet PO 650 mg Q4HR PRN Administration Pain 1 to 4, or Fever Carboxymethylcellulose 1 drops 06/27/23 14:00 06/28/23 14:42 Carboxymethylcellulose Ophth Drops EACHEYE 1 drops PRN PRN Administration Dry Eye Enoxaparin Sodium 40 mg 06/10/23 09:00 06/30/23 08:33 Enoxaparin 40 Mg/0.4 Ml Syringe SUBQ 40 mg DAILY PEREZ Administration Famotidine 20 mg 06/18/23 21:00 06/30/23 08:31 Famotidine 20 Mg Tablet PO 20 mg BID PEREZ Administration Gabapentin 300 mg 06/15/23 02:25 06/29/23 20:36 Gabapentin 300 Mg Capsule PO 300 mg QPM PEREZ Administration Guaifenesin 600 mg 06/12/23 14:00 06/30/23 08:31 Guaifenesin 600 Mg Tablet PO 600 mg BID PEREZ Administration Insulin Glargine-yfgn 20 unit 06/15/23 21:00 06/29/23 20:55 Insulin Glargine-Yfgn 300 Unit/3 Ml Pen SUBQ 20 unit QPM PEREZ Administration Insulin Glargine-yfgn 10 unit 06/30/23 09:00 06/30/23 08:32 Insulin Glargine-Yfgn 300 Unit/3 Ml Pen SUBQ 10 unit DAILY PEREZ Administration Insulin Human Lispro 3 - 11 unit 06/27/23 17:00 06/30/23 12:04 Insulin Lispro 300 Unit/3 Ml Pen SUBQ 3 unit 0800,1200,1700,2100 PEREZ Administration Protocol Insulin Human Lispro 5 unit 06/29/23 12:00 06/30/23 12:07 Insulin Lispro 300 Unit/3 Ml Pen SUBQ 5 unit TIDWM PEREZ Administration Protocol Magnesium Oxide 400 mg 06/17/23 09:00 06/30/23 08:33 Magnesium Oxide 400 Mg Tablet PO 400 mg DAILYWM PEREZ Administration Metoprolol Tartrate 25 mg 06/19/23 21:00 06/30/23 08:31 Metoprolol Tartrate 25 Mg Tablet PO 25 mg BID PEREZ Administration Multivitamins/Minerals 1 tab 06/22/23 14:00 06/30/23 08:31 Multivitamin W/Minerals Tablet PO 1 tab DAILYWM PEREZ Administration Trazodone HCl 25 mg 06/16/23 21:00 06/29/23 20:35 Trazodone 50 Mg Tablet PO 25 mg QPM PEREZ Administration Gabapentin [Neurontin] 300 mg PO DAILY 06/09/23 Insulin Glargine,Hum.rec.anlog [Basaglar Kwikpen U-100] 52 units SUBQ HS 06/09/23 Liraglutide [Victoza 2-Pal] 1.2 mg SUBQ DAILY 06/09/23 Losartan Potassium 12.5 mg PO DAILY 06/09/23 Simvastatin [Zocor] 10 mg PO DAILY 06/09/23 Cholecalciferol [Vitamin D3] 400 unit PO DAILY 06/10/23 Tocopheryl [Vitamin E] 400 unit PO DAILY 06/10/23 Vitamin B Complex 1 each PO DAILY 06/10/23
[2023-06-30] MEDS: GABAPENTIN 300 MG CAPSULE PO SCH (21:00)
[2023-06-30] MEDS: traZODone 50 MG TABLET PO SCH (21:00)
[2023-06-30] MEDS: ACETAMINOPHEN 325 MG TABLET PO PRN (23:51)
[2023-07-01] MEDS: INSULIN LISPRO 300 UNIT/3 ML PEN SUBQ SCH ×7 (08:07→21:45)
[2023-07-01] MEDS: MULTIVITAMIN W/MINERALS TABLET PO SCH (08:08)
[2023-07-01] MEDS: guaiFENesin 600 MG TABLET PO SCH ×2 (08:08→21:44)
[2023-07-01] MEDS: METOPROLOL TARTRATE 25 MG TABLET PO SCH ×2 (08:08→21:51)
[2023-07-01] MEDS: MAGNESIUM OXIDE 400 MG TABLET PO SCH (08:08)
[2023-07-01] MEDS: FAMOTIDINE 20 MG TABLET PO SCH ×2 (08:08→21:44)
[2023-07-01] MEDS: INSULIN GLARGINE-YFGN 300 UNIT/3 ML PEN SUBQ SCH ×2 (08:09→21:44)
[2023-07-01] MEDS: ENOXAPARIN 40 MG/0.4 ML SYRINGE SUBQ SCH (09:55)
--- NOTE | 2023-07-01 15:50 | PROVIDER PROGRESS NOTE ---
Assessment/Plan - Problem List (1) Acute respiratory failure with hypoxia Assessment/Plan: --Oxygen need was fluctuated between 3.5-5 L, to maintain oxygen saturation over 92%. Over the last 3 days, she has had good sats on 5L/min for the past 48 hours. And she has not needed CPAP. Patient is medically stable to discharge to SNF on 5L of O2. (2) CO2 narcosis Assessment/Plan: Mental status can fluctuate depends on the status of CO2 retention Evening and morning are challenging, as she was moving her oxygen oxy mask from time to time, causing desaturation and turning cyanotic and somnolent. If patient is fully awake, patient can feed herself, can carry conversation (3) DM type 2 (diabetes mellitus, type 2) Assessment/Plan: --Currently on 20 units of glargine nightly with 12 units daily. 5 units lispro 3 times daily. Plus sliding scale insulin. Nutrition is following. (5) New onset a-fib Assessment/Plan: Continue metoprolol for rate control. Was determined that she would not be a good candidate for anticoagulation due to poor cognitive function and insight. Further discussions can be held outpatient. (6) Pulmonary edema Assessment/Plan: Resolved after adequate diuresis. - Current Meds Current Meds: Current Medications Generic Name Dose Route Start Last Admin Trade Name Freq PRN Reason Stop Dose Admin Acetaminophen 650 mg 06/09/23 13:50 06/30/23 23:51 Acetaminophen 325 Mg Tablet PO 650 mg Q4HR PRN Administration Pain 1 to 4, or Fever Carboxymethylcellulose 1 drops 06/27/23 14:00 06/28/23 14:42 Carboxymethylcellulose Ophth Drops EACHEYE 1 drops PRN PRN Administration Dry Eye Enoxaparin Sodium 40 mg 06/10/23 09:00 07/01/23 09:55 Enoxaparin 40 Mg/0.4 Ml Syringe SUBQ Not Given DAILY PEREZ Famotidine 20 mg 06/18/23 21:00 07/01/23 08:08 Famotidine 20 Mg Tablet PO 20 mg BID PEREZ Administration Gabapentin 300 mg 06/15/23 02:25 06/30/23 21:00 Gabapentin 300 Mg Capsule PO 300 mg QPM PEREZ Administration Guaifenesin 600 mg 06/12/23 14:00 07/01/23 08:08 Guaifenesin 600 Mg Tablet PO 600 mg BID PEREZ Administration Insulin Glargine-yfgn 20 unit 06/15/23 21:00 06/30/23 21:00 Insulin Glargine-Yfgn 300 Unit/3 Ml Pen SUBQ 20 unit QPM PEREZ Administration Insulin Human Lispro 3 - 11 unit 06/27/23 17:00 07/01/23 11:40 Insulin Lispro 300 Unit/3 Ml Pen SUBQ 5 unit 0800,1200,1700,2100 PEREZ Administration Protocol Insulin Human Lispro 5 unit 06/29/23 12:00 07/01/23 11:40 Insulin Lispro 300 Unit/3 Ml Pen SUBQ 5 unit TIDWM PEREZ Administration Protocol Magnesium Oxide 400 mg 06/17/23 09:00 07/01/23 08:08 Magnesium Oxide 400 Mg Tablet PO 400 mg DAILYWM PEREZ Administration Metoprolol Tartrate 25 mg 06/19/23 21:00 07/01/23 08:08 Metoprolol Tartrate 25 Mg Tablet PO 25 mg BID PEREZ Administration Multivitamins/Minerals 1 tab 06/22/23 14:00 07/01/23 08:08 Multivitamin W/Minerals Tablet PO 1 tab DAILYWM PEREZ Administration Trazodone HCl 25 mg 06/16/23 21:00 06/30/23 21:00 Trazodone 50 Mg Tablet PO 25 mg QPM PEREZ Administration - Lab Result Fish Bone Diagrams: 06/25/23 05:06 06/25/23 05:06 - Additional Planning My Orders: My Active Orders 07/02/23 05:00 CBC [CBC - COMP BLD CT W/AUTO DIFF] [HEME] ONCE Subjective - Subjective Patient Reports: Feeling Better (Pending placement. NAEON.), Resting Comfortably Objective Vital Signs: Vital Signs - 24 hr 06/30/23 06/30/23 06/30/23 16:17 16:20 21:01 Temperature 36.4 C L Heart Rate [ 93 Brachial] Respiratory 16 Rate Blood Pressure 115/62 Blood Pressure 103/81 H [Left Brachial artery] Blood Pressure [Right Brachial artery] O2 Saturation 96 If not protocol 4 4 : Oxygen Flow, liters/minute 07/01/23 07/01/23 07/01/23 00:10 08:08 08:16 Temperature 36.6 C Heart Rate [ 87 Brachial] Respiratory 18 Rate Blood Pressure 108/55 L Blood Pressure [Left Brachial artery] Blood Pressure 108/58 L [Right Brachial artery] O2 Saturation 94 If not protocol 4 5 : Oxygen Flow, liters/minute 07/01/23 08:46 Temperature 36.5 C Heart Rate [ 82 Brachial] Respiratory 18 Rate Blood Pressure Blood Pressure [Left Brachial artery] Blood Pressure 108/55 L [Right Brachial artery] O2 Saturation 94 If not protocol 4 : Oxygen Flow, liters/minute Oxygen O2 Source Nasal cannula I&O (Last 24 Hrs): Intake and Output Totals x24h 06/29/23 06/30/23 07/01/23 23:59 23:59 23:59 Intake Total 1230 1080 480 Output Total 650 Balance 1230 1080 -170 General: Alert, Oriented x3, Cooperative, No acute distress Neuro: Alert, CN 2-12 Grossly Intact Cardiovascular: Regular rate, Normal S1, Normal S2, No murmurs Respiratory: Chest non-tender, No respiratory distress, Breath sounds nml - Results Results: Laboratory Results WBC 6.1 x10^3/uL (4.8-10.8) 06/25/23 05:06 RBC 4.58 10^6/uL (4.20-5.40) 06/25/23 05:06 Hgb 11.4 g/dL (12.0-16.0) L 06/25/23 05:06 Hct 41.3 % (37.0-47.0) 06/25/23 05:06 MCV 90.2 fL (81.0-99.0) 06/25/23 05:06 MCH 24.9 pg (27.0-31.0) L 06/25/23 05:06 MCHC 27.6 g/dL (32.0-36.0) L 06/25/23 05:06 RDW 15.9 % (12.0-15.0) H 06/25/23 05:06 Plt Count 253 10^3/uL (130-450) 06/25/23 05:06 MPV 10.1 fL (7.9-10.8) 06/25/23 05:06 Neut # (Auto) 3.0 10^3/uL (1.5-6.6) 06/25/23 05:06 Lymph # (Auto) 2.4 10^3/uL (1.5-3.5) 06/25/23 05:06 [place] # (Auto) 0.5 10^3/uL (0.0-1.0) 06/25/23 05:06 Eos # (Auto) 0.2 10^3/uL (0.0-0.7) 06/25/23 05:06 Baso # (Auto) 0.1 10^3/uL (0.0-0.1) 06/25/23 05:06 Absolute Nucleated RBC 0.00 x10^3/uL 06/25/23 05:06 Nucleated RBC % 0.0 /100WBC 06/25/23 05:06 Manual Slide Review Indicated 06/22/23 07:27 WBC Morphology NORMAL APPEARANCE (NORMAL) 06/13/23 05:25 Platelet Estimate NORMAL (130-450,000) (NORMAL) 06/22/23 07:27 Platelet Morphology NORMAL APPEARANCE (NORMAL) 06/22/23 07:27 RBC Morph Micro Appear 1+ HYPOCHROMASIA (NORMAL) 06/22/23 07:27 Bld Gas Analysis Time 0415 06/19/23 04:05 Sample Site RIGHT RADIAL 06/19/23 04:05 ABG pH 7.30 (7.35-7.45) L 06/19/23 04:05 ABG pCO2 87 mmHg (34-45) H* 06/19/23 04:05 ABG pO2 70 mmHg (80-100) L 06/19/23 04:05 ABG HCO3 42.1 mmol/L (22.0-26.0) H 06/19/23 04:05 ABG Total CO2 44.8 MMOL/L (21.0-29.0) H* 06/19/23 04:05 ABG O2 Saturation 92 % (94-98) L 06/19/23 04:05 ABG Base Excess 12.4 mmol/L (-2.0-3.0) H 06/19/23 04:05 [place]ie Test POSITIVE 06/19/23 04:05 VBG pH 7.348 (7.31-7.41) 06/18/23 05:47 Ionized Calcium 1.29 mmol/L (1.15-1.33) 06/18/23 05:47 Respiration Rate 16 b/min 06/14/23 15:30 O2 Delivery Device NON REBREATHER MASK 06/19/23 04:05 O2 Liters/Min 15.00 LPM 06/19/23 04:05 Vent Mode SYNCHRONOUS/TIMES 06/14/23 15:30 FiO2 50.00 06/14/23 15:30 EPAP 6 cmH2O 06/14/23 15:30 IPAP 14 cmH2O 06/14/23 15:30 Sodium 143 mmol/L (135-145) 06/25/23 05:06 Potassium 4.0 mmol/L (3.5-4.5) 06/25/23 05:06 Chloride 98 mmol/L (101-111) L 06/25/23 05:06 Carbon Dioxide 40 mmol/L (21-32) H* 06/25/23 05:06 Anion Gap 5.0 (6-13) L 06/25/23 05:06 BUN 9 mg/dL (6-20) 06/25/23 05:06 Creatinine 0.5 mg/dL (0.6-1.3) L 06/25/23 05:06 Estimated GFR (MDRD) 129 (>89) 06/25/23 05:06 Glucose 185 mg/dL (74-104) H 06/25/23 05:06 POC Whole Bld Glucose 214 mg/dL (70 - 100) H 07/01/23 11:16 Estimat Average Glucose 226 mg/dL (70-100) H 06/10/23 06:12 Hemoglobin A1c % 9.5 % (4.27-6.07) H 06/10/23 06:12 Calcium 10.5 mg/dL (8.5-10.3) H 06/25/23 05:06 Phosphorus 3.3 mg/dL (2.5-5.0) 06/18/23 05:47 Magnesium 1.7 mg/dL (1.7-2.3) 06/25/23 05:06 Total Bilirubin 0.9 mg/dL (0.2-1.0) 06/09/23 09:53 AST 13 IU/L (10-42) 06/09/23 09:53 ALT 10 IU/L (10-60) 06/09/23 09:53 Alkaline Phosphatase 76 IU/L (42-121) 06/09/23 09:53 Troponin I High Sens 36.4 ng/L (2.3-14.8) H* 06/11/23 11:31 B-Natriuretic Peptide 60 pg/mL (5-100) 06/20/23 06:06 Total Protein 6.4 g/dL (6.4-8.9) 06/09/23 09:53 Albumin 3.9 g/dL (3.2-5.5) 06/09/23 09:53 Globulin 2.5 g/dL (2.1-4.2) 06/09/23 09:53 Albumin/Globulin Ratio 1.6 (1.0-2.2) 06/09/23 09:53 TSH 1.74 uIU/mL (0.34-5.60) 06/10/23 06:12 Urine Color DARK YELLOW 06/09/23 12:25 Urine Clarity CLOUDY (CLEAR) 06/09/23 12:25 Urine pH 6.0 PH (5.0-7.5) 06/09/23 12:25 Ur Specific [place] 1.025 (1.002-1.030) 06/09/23 12:25 Urine Protein TRACE mg/dL (NEGATIVE) 06/09/23 12:25 Urine Glucose (UA) 250 mg/dL (NEGATIVE) H 06/09/23 12:25 Urine Ketones NEGATIVE mg/dL (NEGATIVE) 06/09/23 12:25 Urine Occult Blood LARGE (NEGATIVE) H 06/09/23 12:25 Urine Nitrite NEGATIVE (NEGATIVE) 06/09/23 12:25 Urine Bilirubin NEGATIVE (NEGATIVE) 06/09/23 12:25 Urine Urobilinogen 0.2 (NORMAL) E.U./dL (NORMAL) 06/09/23 12:25 Ur Leukocyte Esterase NEGATIVE (NEGATIVE) 06/09/23 12:25 Urine RBC TNTC /HPF (0-5) H 06/09/23 12:25 Urine WBC 4-5 /HPF (0-5) 06/09/23 12:25 Ur Squamous Epith Cells MOD Squamous (<= Few) H 06/09/23 12:25 Urine Crystals >50 Calcium Oxalate /LPF 06/09/23 12:25 Urine Bacteria Moderate /HPF (None Seen) H 06/09/23 12:25 Urine Mucus Few Strands 06/09/23 12:25 Ur Microscopic Review INDICATED 06/09/23 12:25 Urine Culture Comments NOT INDICATED 06/09/23 12:25 Nasal Adenovirus (PCR) NOT DETECTED 06/09/23 09:50 Nasal B. parapertussis DNA (PCR) NOT DETECTED 06/09/23 09:50 Nasal Coronavir 229E PCR NOT DETECTED 06/09/23 09:50 Nasal Coronavir HKU1 PCR NOT DETECTED 06/09/23 09:50 Nasal Coronavir NL63 PCR NOT DETECTED 06/09/23 09:50 Nasal Coronavir OC43 PCR NOT DETECTED 06/09/23 09:50 Nasal Enterovir/Rhinovir PCR NOT DETECTED 06/09/23 09:50 Nasal Influenza B PCR NOT DETECTED 06/09/23 09:50 Nasal Influenza A PCR NOT DETECTED 06/09/23 09:50 Nasal Parainfluen 1 PCR NOT DETECTED 06/09/23 09:50 Nasal Parainfluen 2 PCR NOT DETECTED 06/09/23 09:50 Nasal Parainfluen 3 PCR NOT DETECTED 06/09/23 09:50 Nasal Parainfluen 4 PCR NOT DETECTED 06/09/23 09:50 Nasal RSV (PCR) NOT DETECTED 06/09/23 09:50 Nasal Screen MRSA (PCR) NEGATIVE (NEGATIVE) 06/11/23 05:00 Nasal B.pertussis DNA PCR NOT DETECTED 06/09/23 09:50 Nasal C.pneumoniae (PCR) NOT DETECTED 06/09/23 09:50 Amish Human Metapneumo PCR NOT DETECTED 06/09/23 09:50 Nasal M.pneumoniae (PCR) NOT DETECTED 06/09/23 09:50 Nasal SARS-CoV-2 (PCR) NOT DETECTED 06/09/23 09:50 Last Dose Date UNKNOWN 06/13/23 05:25 Last Dose Time UNKNOWN 06/13/23 05:25 Vancomycin Peak 43.7 ug/mL (20.0-40.0) H 06/11/23 21:00 Vancomycin Trough 21.6 ug/mL 06/13/23 05:25 Sepsis Event Note (H) - Evaluation Current Stage of Sepsis: Ruled out ABX Reporting Has patient been on IV antibiotics over the past 48 hours?: No Current Medications - Current Medications Current Medications: Active Medications Generic Name Dose Route Start Last Admin Trade Name Freq PRN Reason Stop Dose Admin Acetaminophen 650 mg 06/09/23 13:50 06/30/23 23:51 Acetaminophen 325 Mg Tablet PO 650 mg Q4HR PRN Administration Pain 1 to 4, or Fever Carboxymethylcellulose 1 drops 06/27/23 14:00 06/28/23 14:42 Carboxymethylcellulose Ophth Drops EACHEYE 1 drops PRN PRN Administration Dry Eye Enoxaparin Sodium 40 mg 06/10/23 09:00 07/01/23 09:55 Enoxaparin 40 Mg/0.4 Ml Syringe SUBQ Not Given DAILY PEREZ Famotidine 20 mg 06/18/23 21:00 07/01/23 08:08 Famotidine 20 Mg Tablet PO 20 mg BID PEREZ Administration Gabapentin 300 mg 06/15/23 02:25 06/30/23 21:00 Gabapentin 300 Mg Capsule PO 300 mg QPM PEREZ Administration Guaifenesin 600 mg 06/12/23 14:00 07/01/23 08:08 Guaifenesin 600 Mg Tablet PO 600 mg BID PEREZ Administration Insulin Glargine-yfgn 20 unit 06/15/23 21:00 06/30/23 21:00 Insulin Glargine-Yfgn 300 Unit/3 Ml Pen SUBQ 20 unit QPM PEREZ Administration Insulin Glargine-yfgn 12 unit 07/01/23 09:45 Insulin Glargine-Yfgn 300 Unit/3 Ml Pen SUBQ DAILY [facility] Insulin Human Lispro 3 - 11 unit 06/27/23 17:00 07/01/23 11:40 Insulin Lispro 300 Unit/3 Ml Pen SUBQ 5 unit 0800,1200,1700,2100 [facility] Administration Protocol Insulin Human Lispro 5 unit 06/29/23 12:00 07/01/23 11:40 Insulin Lispro 300 Unit/3 Ml Pen SUBQ 5 unit TIDWM [facility] Administration Protocol Magnesium Oxide 400 mg 06/17/23 09:00 07/01/23 08:08 Magnesium Oxide 400 Mg Tablet PO 400 mg DAILYWM PEREZ Administration Metoprolol Tartrate 25 mg 06/19/23 21:00 07/01/23 08:08 Metoprolol Tartrate 25 Mg Tablet PO 25 mg BID PEREZ Administration Multivitamins/Minerals 1 tab 06/22/23 14:00 07/01/23 08:08 Multivitamin W/Minerals Tablet PO 1 tab DAILYWM PEREZ Administration Trazodone HCl 25 mg 06/16/23 21:00 06/30/23 21:00 Trazodone 50 Mg Tablet PO 25 mg QPM PEREZ Administration Gabapentin [Neurontin] 300 mg PO DAILY 06/09/23 Insulin Glargine,Hum.rec.anlog [Basaglar Kwikpen U-100] 52 units SUBQ HS 06/09/23 Liraglutide [Victoza 2-Pal] 1.2 mg SUBQ DAILY 06/09/23 Losartan Potassium 12.5 mg PO DAILY 06/09/23 Simvastatin [Zocor] 10 mg PO DAILY 06/09/23 Cholecalciferol [Vitamin D3] 400 unit PO DAILY 06/10/23 Tocopheryl [Vitamin E] 400 unit PO DAILY 06/10/23 Vitamin B Complex 1 each PO DAILY 06/10/23
[2023-07-01] MEDS: traZODone 50 MG TABLET PO SCH (21:44)
[2023-07-01] MEDS: GABAPENTIN 300 MG CAPSULE PO SCH (21:44)
[2023-07-02 05:54] LABS: BASOPHILS # (AUTO) 0.1 10^3/uL (0.0-0.1); BASOPHILS % (AUTO) 0.8 %; EOSINOPHILS # (AUTO) 0.2 10^3/uL (0.0-0.7); EOSINOPHILS % (AUTO) 2.6 %; HGB - HEMOGLOBIN 10.9 g/dL (12.0-16.0); LYMPHOCYTES # (AUTO) 2.3 10^3/uL (1.5-3.5); LYMPHOCYTES % (AUTO) 34.5 %; MEAN CORPUSCULAR HEMOGLOBIN 25.4 pg (27.0-31.0); MEAN CORPUSCULAR HGB CONC 27.9 g/dL (32.0-36.0); MEAN CORPUSCULAR VOLUME 90.9 fL (81.0-99.0); MEAN PLATELET VOLUME 10.1 fL (7.9-10.8); MONOCYTES # (AUTO) 0.5 10^3/uL (0.0-1.0); MONOCYTES % (AUTO) 7.2 %; NEUTROPHILS # (AUTO) 3.6 10^3/uL (1.5-6.6); NEUTROPHILS % (AUTO) 54.6 %; PLT - PLATELET COUNT 179 10^3/uL (130-450); RED BLOOD COUNT 4.29 10^6/uL (4.20-5.40); RED CELL DISTRIBUTION WIDTH 15.7 % (12.0-15.0); WHITE BLOOD COUNT 6.6 x10^3/uL (4.8-10.8)
[2023-07-02] MEDS: INSULIN GLARGINE-YFGN 300 UNIT/3 ML PEN SUBQ SCH ×2 (08:12→20:37)
[2023-07-02] MEDS: METOPROLOL TARTRATE 25 MG TABLET PO SCH ×2 (08:12→20:34)
[2023-07-02] MEDS: FAMOTIDINE 20 MG TABLET PO SCH ×2 (08:12→20:34)
[2023-07-02] MEDS: MULTIVITAMIN W/MINERALS TABLET PO SCH (08:12)
[2023-07-02] MEDS: ENOXAPARIN 40 MG/0.4 ML SYRINGE SUBQ SCH (08:12)
[2023-07-02] MEDS: guaiFENesin 600 MG TABLET PO SCH ×2 (08:12→20:34)
[2023-07-02] MEDS: MAGNESIUM OXIDE 400 MG TABLET PO SCH (08:12)
[2023-07-02] MEDS: INSULIN LISPRO 300 UNIT/3 ML PEN SUBQ SCH ×7 (08:13→20:37)
--- NOTE | 2023-07-02 11:10 | PROVIDER PROGRESS NOTE ---
Assessment/Plan - Problem List (1) Acute respiratory failure with hypoxia Assessment/Plan: --Oxygen need was fluctuated between 3.5-5 L, to maintain oxygen saturation over 92%. Over the last 3 days, she has had good sats on 5L/min for the past 48 hours. And she has not needed CPAP. Patient is medically stable to discharge to SNF on 5L of O2. (2) CO2 narcosis Assessment/Plan: Mental status can fluctuate depends on the status of CO2 retention Evening and morning are challenging, as she was moving her oxygen oxy mask from time to time, causing desaturation and turning cyanotic and somnolent. If patient is fully awake, patient can feed herself, can carry conversation (3) DM type 2 (diabetes mellitus, type 2) Assessment/Plan: --Currently on 20 units of glargine nightly with 12 units daily. 5 units lispro 3 times daily. Plus sliding scale insulin. Nutrition is following. (5) New onset a-fib Assessment/Plan: Continue metoprolol for rate control. Was determined that she would not be a good candidate for anticoagulation due to poor cognitive function and insight. Further discussions can be held outpatient. (6) Pulmonary edema Assessment/Plan: Resolved after adequate diuresis. - Current Meds Current Meds: Current Medications Generic Name Dose Route Start Last Admin Trade Name Freq PRN Reason Stop Dose Admin Acetaminophen 650 mg 06/09/23 13:50 06/30/23 23:51 Acetaminophen 325 Mg Tablet PO 650 mg Q4HR PRN Administration Pain 1 to 4, or Fever Carboxymethylcellulose 1 drops 06/27/23 14:00 06/28/23 14:42 Carboxymethylcellulose Ophth Drops EACHEYE 1 drops PRN PRN Administration Dry Eye Enoxaparin Sodium 40 mg 06/10/23 09:00 07/02/23 08:12 Enoxaparin 40 Mg/0.4 Ml Syringe SUBQ 40 mg DAILY PEREZ Administration Famotidine 20 mg 06/18/23 21:00 07/02/23 08:12 Famotidine 20 Mg Tablet PO 20 mg BID PEREZ Administration Gabapentin 300 mg 06/15/23 02:25 07/01/23 21:44 Gabapentin 300 Mg Capsule PO 300 mg QPM PEREZ Administration Guaifenesin 600 mg 06/12/23 14:00 07/02/23 08:12 Guaifenesin 600 Mg Tablet PO 600 mg BID PEREZ Administration Insulin Glargine-yfgn 20 unit 06/15/23 21:00 07/01/23 21:44 Insulin Glargine-Yfgn 300 Unit/3 Ml Pen SUBQ 20 unit QPM PEREZ Administration Insulin Glargine-yfgn 12 unit 07/01/23 09:45 07/02/23 08:12 Insulin Glargine-Yfgn 300 Unit/3 Ml Pen SUBQ 12 unit DAILY PEREZ Administration Insulin Human Lispro 3 - 11 unit 06/27/23 17:00 07/02/23 08:13 Insulin Lispro 300 Unit/3 Ml Pen SUBQ 3 unit 0800,1200,1700,2100 PEREZ Administration Protocol Insulin Human Lispro 5 unit 06/29/23 12:00 07/02/23 08:13 Insulin Lispro 300 Unit/3 Ml Pen SUBQ 5 unit TIDWM PEREZ Administration Protocol Magnesium Oxide 400 mg 06/17/23 09:00 07/02/23 08:12 Magnesium Oxide 400 Mg Tablet PO 400 mg DAILYWM PEREZ Administration Metoprolol Tartrate 25 mg 06/19/23 21:00 07/02/23 08:12 Metoprolol Tartrate 25 Mg Tablet PO 25 mg BID PEREZ Administration Multivitamins/Minerals 1 tab 06/22/23 14:00 07/02/23 08:12 Multivitamin W/Minerals Tablet PO 1 tab DAILYWM PEREZ Administration Trazodone HCl 25 mg 06/16/23 21:00 07/01/23 21:44 Trazodone 50 Mg Tablet PO 25 mg QPM PEREZ Administration - Lab Result Fish Bone Diagrams: 07/02/23 05:33 06/25/23 05:06 Subjective - Subjective Patient Reports: No Complaints (No acute events overnight. Pending placement.) Objective Vital Signs: Vital Signs - 24 hr 07/01/23 07/01/23 07/01/23 16:05 20:00 21:51 Temperature 36.6 C Heart Rate [ 81 Brachial] Respiratory 18 Rate Blood Pressure 126/4 L Blood Pressure 102/59 L [Right Brachial artery] O2 Saturation 92 If not protocol 4 4 : Oxygen Flow, liters/minute 07/01/23 07/02/23 07/02/23 23:41 07:37 08:12 Temperature 36.3 C L Heart Rate [ 95 Brachial] Respiratory 18 Rate Blood Pressure 125/55 L Blood Pressure 109/51 L [Right Brachial artery] O2 Saturation 96 If not protocol 4 2 : Oxygen Flow, liters/minute 07/02/23 09:08 Temperature 37.0 C Heart Rate [ 90 Brachial] Respiratory 18 Rate Blood Pressure Blood Pressure 125/55 L [Right Brachial artery] O2 Saturation 93 If not protocol 4 : Oxygen Flow, liters/minute Oxygen O2 Source Nasal cannula I&O (Last 24 Hrs): Intake and Output Totals x24h 06/30/23 07/01/23 07/02/23 23:59 23:59 23:59 Intake Total 1080 820 240 Output Total 650 Balance 1080 170 240 General: Alert, Oriented x3, Cooperative, No acute distress Neuro: Alert, CN 2-12 Grossly Intact Cardiovascular: Regular rate, Normal S1, Normal S2, No murmurs Respiratory: Chest non-tender, No respiratory distress, Breath sounds nml Abdomen: Normal bowel sounds, Soft, No tenderness, No hepatospenomegaly, No masses - Results Results: Laboratory Results WBC 6.6 x10^3/uL (4.8-10.8) 07/02/23 05:33 RBC 4.29 10^6/uL (4.20-5.40) 07/02/23 05:33 Hgb 10.9 g/dL (12.0-16.0) L 07/02/23 05:33 Hct 39.0 % (37.0-47.0) 07/02/23 05:33 MCV 90.9 fL (81.0-99.0) 07/02/23 05:33 MCH 25.4 pg (27.0-31.0) L 07/02/23 05:33 MCHC 27.9 g/dL (32.0-36.0) L 07/02/23 05:33 RDW 15.7 % (12.0-15.0) H 07/02/23 05:33 Plt Count 179 10^3/uL (130-450) 07/02/23 05:33 MPV 10.1 fL (7.9-10.8) 07/02/23 05:33 Neut # (Auto) 3.6 10^3/uL (1.5-6.6) 07/02/23 05:33 Lymph # (Auto) 2.3 10^3/uL (1.5-3.5) 07/02/23 05:33 [place] # (Auto) 0.5 10^3/uL (0.0-1.0) 07/02/23 05:33 Eos # (Auto) 0.2 10^3/uL (0.0-0.7) 07/02/23 05:33 Baso # (Auto) 0.1 10^3/uL (0.0-0.1) 07/02/23 05:33 Absolute Nucleated RBC 0.00 x10^3/uL 07/02/23 05:33 Nucleated RBC % 0.0 /100WBC 07/02/23 05:33 Manual Slide Review Indicated 06/22/23 07:27 WBC Morphology NORMAL APPEARANCE (NORMAL) 06/13/23 05:25 Platelet Estimate NORMAL (130-450,000) (NORMAL) 06/22/23 07:27 Platelet Morphology NORMAL APPEARANCE (NORMAL) 06/22/23 07:27 RBC Morph Micro Appear 1+ HYPOCHROMASIA (NORMAL) 06/22/23 07:27 Bld Gas Analysis Time 0415 06/19/23 04:05 Sample Site RIGHT RADIAL 06/19/23 04:05 ABG pH 7.30 (7.35-7.45) L 06/19/23 04:05 ABG pCO2 87 mmHg (34-45) H* 06/19/23 04:05 ABG pO2 70 mmHg (80-100) L 06/19/23 04:05 ABG HCO3 42.1 mmol/L (22.0-26.0) H 06/19/23 04:05 ABG Total CO2 44.8 MMOL/L (21.0-29.0) H* 06/19/23 04:05 ABG O2 Saturation 92 % (94-98) L 06/19/23 04:05 ABG Base Excess 12.4 mmol/L (-2.0-3.0) H 06/19/23 04:05 Davie Test POSITIVE 06/19/23 04:05 VBG pH 7.348 (7.31-7.41) 06/18/23 05:47 Ionized Calcium 1.29 mmol/L (1.15-1.33) 06/18/23 05:47 Respiration Rate 16 b/min 06/14/23 15:30 O2 Delivery Device NON REBREATHER MASK 06/19/23 04:05 O2 Liters/Min 15.00 LPM 06/19/23 04:05 Vent Mode SYNCHRONOUS/TIMES 06/14/23 15:30 FiO2 50.00 06/14/23 15:30 EPAP 6 cmH2O 06/14/23 15:30 IPAP 14 cmH2O 06/14/23 15:30 Sodium 143 mmol/L (135-145) 06/25/23 05:06 Potassium 4.0 mmol/L (3.5-4.5) 06/25/23 05:06 Chloride 98 mmol/L (101-111) L 06/25/23 05:06 Carbon Dioxide 40 mmol/L (21-32) H* 06/25/23 05:06 Anion Gap 5.0 (6-13) L 06/25/23 05:06 BUN 9 mg/dL (6-20) 06/25/23 05:06 Creatinine 0.5 mg/dL (0.6-1.3) L 06/25/23 05:06 Estimated GFR (MDRD) 129 (>89) 06/25/23 05:06 Glucose 185 mg/dL (74-104) H 06/25/23 05:06 POC Whole Bld Glucose 151 mg/dL (70 - 100) H 07/02/23 07:39 Estimat Average Glucose 226 mg/dL (70-100) H 06/10/23 06:12 Hemoglobin A1c % 9.5 % (4.27-6.07) H 06/10/23 06:12 Calcium 10.5 mg/dL (8.5-10.3) H 06/25/23 05:06 Phosphorus 3.3 mg/dL (2.5-5.0) 06/18/23 05:47 Magnesium 1.7 mg/dL (1.7-2.3) 06/25/23 05:06 Total Bilirubin 0.9 mg/dL (0.2-1.0) 06/09/23 09:53 AST 13 IU/L (10-42) 06/09/23 09:53 ALT 10 IU/L (10-60) 06/09/23 09:53 Alkaline Phosphatase 76 IU/L (42-121) 06/09/23 09:53 Troponin I High Sens 36.4 ng/L (2.3-14.8) H* 06/11/23 11:31 B-Natriuretic Peptide 60 pg/mL (5-100) 06/20/23 06:06 Total Protein 6.4 g/dL (6.4-8.9) 06/09/23 09:53 Albumin 3.9 g/dL (3.2-5.5) 06/09/23 09:53 Globulin 2.5 g/dL (2.1-4.2) 06/09/23 09:53 Albumin/Globulin Ratio 1.6 (1.0-2.2) 06/09/23 09:53 TSH 1.74 uIU/mL (0.34-5.60) 06/10/23 06:12 Urine Color DARK YELLOW 06/09/23 12:25 Urine Clarity CLOUDY (CLEAR) 06/09/23 12:25 Urine pH 6.0 PH (5.0-7.5) 06/09/23 12:25 Ur Specific Ozan 1.025 (1.002-1.030) 06/09/23 12:25 Urine Protein TRACE mg/dL (NEGATIVE) 06/09/23 12:25 Urine Glucose (UA) 250 mg/dL (NEGATIVE) H 06/09/23 12:25 Urine Ketones NEGATIVE mg/dL (NEGATIVE) 06/09/23 12:25 Urine Occult Blood LARGE (NEGATIVE) H 06/09/23 12:25 Urine Nitrite NEGATIVE (NEGATIVE) 06/09/23 12:25 Urine Bilirubin NEGATIVE (NEGATIVE) 06/09/23 12:25 Urine Urobilinogen 0.2 (NORMAL) E.U./dL (NORMAL) 06/09/23 12:25 Ur Leukocyte Esterase NEGATIVE (NEGATIVE) 06/09/23 12:25 Urine RBC TNTC /HPF (0-5) H 06/09/23 12:25 Urine WBC 4-5 /HPF (0-5) 06/09/23 12:25 Ur Squamous Epith Cells MOD Squamous (<= Few) H 06/09/23 12:25 Urine Crystals >50 Calcium Oxalate /LPF 06/09/23 12:25 Urine Bacteria Moderate /HPF (None Seen) H 06/09/23 12:25 Urine Mucus Few Strands 06/09/23 12:25 Ur Microscopic Review INDICATED 06/09/23 12:25 Urine Culture Comments NOT INDICATED 06/09/23 12:25 Nasal Adenovirus (PCR) NOT DETECTED 06/09/23 09:50 Nasal B. parapertussis DNA (PCR) NOT DETECTED 06/09/23 09:50 Nasal Coronavir 229E PCR NOT DETECTED 06/09/23 09:50 Nasal Coronavir HKU1 PCR NOT DETECTED 06/09/23 09:50 Nasal Coronavir NL63 PCR NOT DETECTED 06/09/23 09:50 Nasal Coronavir OC43 PCR NOT DETECTED 06/09/23 09:50 Nasal Enterovir/Rhinovir PCR NOT DETECTED 06/09/23 09:50 Nasal Influenza B PCR NOT DETECTED 06/09/23 09:50 Nasal Influenza A PCR NOT DETECTED 06/09/23 09:50 Nasal Parainfluen 1 PCR NOT DETECTED 06/09/23 09:50 Nasal Parainfluen 2 PCR NOT DETECTED 06/09/23 09:50 Nasal Parainfluen 3 PCR NOT DETECTED 06/09/23 09:50 Nasal Parainfluen 4 PCR NOT DETECTED 06/09/23 09:50 Nasal RSV (PCR) NOT DETECTED 06/09/23 09:50 Nasal Screen MRSA (PCR) NEGATIVE (NEGATIVE) 06/11/23 05:00 Nasal B.pertussis DNA PCR NOT DETECTED 06/09/23 09:50 Nasal C.pneumoniae (PCR) NOT DETECTED 06/09/23 09:50 Amish Human Metapneumo PCR NOT DETECTED 06/09/23 09:50 Nasal M.pneumoniae (PCR) NOT DETECTED 06/09/23 09:50 Nasal SARS-CoV-2 (PCR) NOT DETECTED 06/09/23 09:50 Last Dose Date UNKNOWN 06/13/23 05:25 Last Dose Time UNKNOWN 06/13/23 05:25 Vancomycin Peak 43.7 ug/mL (20.0-40.0) H 06/11/23 21:00 Vancomycin Trough 21.6 ug/mL 06/13/23 05:25 Sepsis Event Note (H) - Evaluation Current Stage of Sepsis: Ruled out Current Medications - Current Medications Current Medications: Active Medications Generic Name Dose Route Start Last Admin Trade Name Freq PRN Reason Stop Dose Admin Acetaminophen 650 mg 06/09/23 13:50 06/30/23 23:51 Acetaminophen 325 Mg Tablet PO 650 mg Q4HR PRN Administration Pain 1 to 4, or Fever Carboxymethylcellulose 1 drops 06/27/23 14:00 06/28/23 14:42 Carboxymethylcellulose Ophth Drops EACHEYE 1 drops PRN PRN Administration Dry Eye Enoxaparin Sodium 40 mg 06/10/23 09:00 07/02/23 08:12 Enoxaparin 40 Mg/0.4 Ml Syringe SUBQ 40 mg DAILY PEREZ Administration Famotidine 20 mg 06/18/23 21:00 07/02/23 08:12 Famotidine 20 Mg Tablet PO 20 mg BID PEREZ Administration Gabapentin 300 mg 06/15/23 02:25 07/01/23 21:44 Gabapentin 300 Mg Capsule PO 300 mg QPM PEREZ Administration Guaifenesin 600 mg 06/12/23 14:00 07/02/23 08:12 Guaifenesin 600 Mg Tablet PO 600 mg BID PEREZ Administration Insulin Glargine-yfgn 20 unit 06/15/23 21:00 07/01/23 21:44 Insulin Glargine-Yfgn 300 Unit/3 Ml Pen SUBQ 20 unit QPM PEREZ Administration Insulin Glargine-yfgn 12 unit 07/01/23 09:45 07/02/23 08:12 Insulin Glargine-Yfgn 300 Unit/3 Ml Pen SUBQ 12 unit DAILY PEREZ Administration Insulin Human Lispro 3 - 11 unit 06/27/23 17:00 07/02/23 08:13 Insulin Lispro 300 Unit/3 Ml Pen SUBQ 3 unit 0800,1200,1700,2100 PEREZ Administration Protocol Insulin Human Lispro 5 unit 06/29/23 12:00 07/02/23 08:13 Insulin Lispro 300 Unit/3 Ml Pen SUBQ 5 unit TIDWM PEREZ Administration Protocol Magnesium Oxide 400 mg 06/17/23 09:00 07/02/23 08:12 Magnesium Oxide 400 Mg Tablet PO 400 mg DAILYWM PEREZ Administration Metoprolol Tartrate 25 mg 06/19/23 21:00 07/02/23 08:12 Metoprolol Tartrate 25 Mg Tablet PO 25 mg BID PEREZ Administration Multivitamins/Minerals 1 tab 06/22/23 14:00 07/02/23 08:12 Multivitamin W/Minerals Tablet PO 1 tab DAILYWM PEREZ Administration Trazodone HCl 25 mg 06/16/23 21:00 07/01/23 21:44 Trazodone 50 Mg Tablet PO 25 mg QPM PEREZ Administration Gabapentin [Neurontin] 300 mg PO DAILY 06/09/23 Insulin Glargine,Hum.rec.anlog [Basaglar Kwikpen U-100] 52 units SUBQ HS 06/09/23 Liraglutide [Victoza 2-Pal] 1.2 mg SUBQ DAILY 06/09/23 Losartan Potassium 12.5 mg PO DAILY 06/09/23 Simvastatin [Zocor] 10 mg PO DAILY 06/09/23 Cholecalciferol [Vitamin D3] 400 unit PO DAILY 06/10/23 Tocopheryl [Vitamin E] 400 unit PO DAILY 06/10/23 Vitamin B Complex 1 each PO DAILY 06/10/23
[2023-07-02] MEDS: GABAPENTIN 300 MG CAPSULE PO SCH (20:34)
[2023-07-02] MEDS: traZODone 50 MG TABLET PO SCH (20:34)
[2023-07-02] MEDS: ACETAMINOPHEN 325 MG TABLET PO PRN (23:03)
[2023-07-03] MEDS: METOPROLOL TARTRATE 25 MG TABLET PO SCH ×2 (09:14→22:08)
[2023-07-03] MEDS: guaiFENesin 600 MG TABLET PO SCH ×2 (09:15→21:48)
[2023-07-03] MEDS: FAMOTIDINE 20 MG TABLET PO SCH ×2 (09:15→21:48)
[2023-07-03] MEDS: MAGNESIUM OXIDE 400 MG TABLET PO SCH (09:15)
[2023-07-03] MEDS: MULTIVITAMIN W/MINERALS TABLET PO SCH (09:15)
[2023-07-03] MEDS: INSULIN GLARGINE-YFGN 300 UNIT/3 ML PEN SUBQ SCH ×2 (09:16→22:02)
[2023-07-03] MEDS: INSULIN LISPRO 300 UNIT/3 ML PEN SUBQ SCH ×7 (09:16→21:59)
[2023-07-03] MEDS: ENOXAPARIN 40 MG/0.4 ML SYRINGE SUBQ SCH (09:16)
--- NOTE | 2023-07-03 12:33 | PROVIDER PROGRESS NOTE ---
Assessment/Plan - Problem List (1) Acute respiratory failure with hypoxia Assessment/Plan: (1) Acute respiratory failure with hypoxia Assessment/Plan: --Oxygen need was fluctuated between 3.5-5 L, to maintain oxygen saturation over 92%. Over the last 3 days, she has had good sats on 5L/min for the past 48 hours. And she has not needed CPAP. Patient is medically stable to discharge to SNF on 5L of O2. (2) CO2 narcosis Assessment/Plan: Mental status can fluctuate depends on the status of CO2 retention Evening and morning are challenging, as she was moving her oxygen oxy mask from time to time, causing desaturation and turning cyanotic and somnolent. If patient is fully awake, patient can feed herself, can carry conversation (3) DM type 2 (diabetes mellitus, type 2) Assessment/Plan: --Currently on 20 units of glargine nightly with 12 units daily. 5 units lispro 3 times daily. Plus sliding scale insulin. Nutrition is following. (5) New onset a-fib Assessment/Plan: Continue metoprolol for rate control. Was determined that she would not be a good candidate for anticoagulation due to poor cognitive function and insight. Further discussions can be held outpatient. (6) Pulmonary edema Assessment/Plan: Resolved after adequate diuresis. - Current Meds Current Meds: Current Medications Generic Name Dose Route Start Last Admin Trade Name Freq PRN Reason Stop Dose Admin Acetaminophen 650 mg 06/09/23 13:50 07/02/23 23:03 Acetaminophen 325 Mg Tablet PO 650 mg Q4HR PRN Administration Pain 1 to 4, or Fever Carboxymethylcellulose 1 drops 06/27/23 14:00 06/28/23 14:42 Carboxymethylcellulose Ophth Drops EACHEYE 1 drops PRN PRN Administration Dry Eye Enoxaparin Sodium 40 mg 06/10/23 09:00 07/03/23 09:16 Enoxaparin 40 Mg/0.4 Ml Syringe SUBQ 40 mg DAILY PEREZ Administration Famotidine 20 mg 06/18/23 21:00 07/03/23 09:15 Famotidine 20 Mg Tablet PO 20 mg BID PEREZ Administration Gabapentin 300 mg 06/15/23 02:25 07/02/23 20:34 Gabapentin 300 Mg Capsule PO 300 mg QPM PEREZ Administration Guaifenesin 600 mg 06/12/23 14:00 07/03/23 09:15 Guaifenesin 600 Mg Tablet PO 600 mg BID PEREZ Administration Insulin Glargine-yfgn 20 unit 06/15/23 21:00 07/02/23 20:37 Insulin Glargine-Yfgn 300 Unit/3 Ml Pen SUBQ 20 unit QPM PEREZ Administration Insulin Glargine-yfgn 12 unit 07/01/23 09:45 07/03/23 09:16 Insulin Glargine-Yfgn 300 Unit/3 Ml Pen SUBQ 12 unit DAILY PEREZ Administration Insulin Human Lispro 3 - 11 unit 06/27/23 17:00 07/03/23 12:00 Insulin Lispro 300 Unit/3 Ml Pen SUBQ 5 unit 0800,1200,1700,2100 PEREZ Administration Protocol Insulin Human Lispro 5 unit 06/29/23 12:00 07/03/23 12:01 Insulin Lispro 300 Unit/3 Ml Pen SUBQ 5 unit TIDWM PEREZ Administration Protocol Magnesium Oxide 400 mg 06/17/23 09:00 07/03/23 09:15 Magnesium Oxide 400 Mg Tablet PO 400 mg DAILYWM PEREZ Administration Metoprolol Tartrate 25 mg 06/19/23 21:00 07/03/23 09:14 Metoprolol Tartrate 25 Mg Tablet PO 25 mg BID PEREZ Administration Multivitamins/Minerals 1 tab 06/22/23 14:00 07/03/23 09:15 Multivitamin W/Minerals Tablet PO 1 tab DAILYWM PEREZ Administration Trazodone HCl 25 mg 06/16/23 21:00 07/02/23 20:34 Trazodone 50 Mg Tablet PO 25 mg QPM PEREZ Administration - Lab Result Fish Bone Diagrams: 07/02/23 05:33 06/25/23 05:06 Subjective - Subjective Patient Reports: Feeling Better, Resting Comfortably, No Complaints Nursing Reports: No Complaints Objective Vital Signs: Vital Signs - 24 hr 07/02/23 07/02/23 07/02/23 19:15 20:34 21:36 Temperature 36.4 C L Heart Rate [ 91 Brachial] Respiratory 18 Rate Blood Pressure 124/55 L Blood Pressure 114/69 [Right Brachial artery] O2 Saturation 93 If not protocol 4 4 : Oxygen Flow, liters/minute 07/02/23 07/03/23 07/03/23 23:33 07:18 07:26 Temperature 36.8 C 36.8 C Heart Rate [ 66 106 H Brachial] Respiratory 18 16 Rate Blood Pressure Blood Pressure 110/56 L 120/54 L [Right Brachial artery] O2 Saturation 92 90 L If not protocol 4 4 4 : Oxygen Flow, liters/minute 07/03/23 09:14 Temperature Heart Rate [ Brachial] Respiratory Rate Blood Pressure 120/64 Blood Pressure [Right Brachial artery] O2 Saturation If not protocol : Oxygen Flow, liters/minute Oxygen O2 Source Nasal cannula I&O (Last 24 Hrs): Intake and Output Totals x24h 07/01/23 07/02/23 07/03/23 23:59 23:59 23:59 Intake Total 820 600 720 Output Total 650 Balance 170 600 720 General: Alert, Oriented x3, Cooperative, No acute distress HEENT: Atraumatic, PERRLA, EOMI Neck: Supple, No JVD, No thyromegaly, +2 carotid pulse wo bruit, No LAD Neuro: Alert, CN 2-12 Grossly Intact, Oriented Times 3 Cardiovascular: Regular rate, Normal S1, Normal S2, No murmurs Respiratory: Chest non-tender, No respiratory distress, Breath sounds nml Abdomen: Normal bowel sounds, Soft, No tenderness, No hepatospenomegaly, No masses Extremities: No clubbing, No cyanosis, No edema, Normal pulses, No tenderness/swelling - Results Results: Laboratory Results WBC 6.6 x10^3/uL (4.8-10.8) 07/02/23 05:33 RBC 4.29 10^6/uL (4.20-5.40) 07/02/23 05:33 Hgb 10.9 g/dL (12.0-16.0) L 07/02/23 05:33 Hct 39.0 % (37.0-47.0) 07/02/23 05:33 MCV 90.9 fL (81.0-99.0) 07/02/23 05:33 MCH 25.4 pg (27.0-31.0) L 07/02/23 05:33 MCHC 27.9 g/dL (32.0-36.0) L 07/02/23 05:33 RDW 15.7 % (12.0-15.0) H 07/02/23 05:33 Plt Count 179 10^3/uL (130-450) 07/02/23 05:33 MPV 10.1 fL (7.9-10.8) 07/02/23 05:33 Neut # (Auto) 3.6 10^3/uL (1.5-6.6) 07/02/23 05:33 Lymph # (Auto) 2.3 10^3/uL (1.5-3.5) 07/02/23 05:33 [place] # (Auto) 0.5 10^3/uL (0.0-1.0) 07/02/23 05:33 Eos # (Auto) 0.2 10^3/uL (0.0-0.7) 07/02/23 05:33 Baso # (Auto) 0.1 10^3/uL (0.0-0.1) 07/02/23 05:33 Absolute Nucleated RBC 0.00 x10^3/uL 07/02/23 05:33 Nucleated RBC % 0.0 /100WBC 07/02/23 05:33 Manual Slide Review Indicated 06/22/23 07:27 WBC Morphology NORMAL APPEARANCE (NORMAL) 06/13/23 05:25 Platelet Estimate NORMAL (130-450,000) (NORMAL) 06/22/23 07:27 Platelet Morphology NORMAL APPEARANCE (NORMAL) 06/22/23 07:27 RBC Morph Micro Appear 1+ HYPOCHROMASIA (NORMAL) 06/22/23 07:27 Bld Gas Analysis Time 0415 06/19/23 04:05 Sample Site RIGHT RADIAL 06/19/23 04:05 ABG pH 7.30 (7.35-7.45) L 06/19/23 04:05 ABG pCO2 87 mmHg (34-45) H* 06/19/23 04:05 ABG pO2 70 mmHg (80-100) L 06/19/23 04:05 ABG HCO3 42.1 mmol/L (22.0-26.0) H 06/19/23 04:05 ABG Total CO2 44.8 MMOL/L (21.0-29.0) H* 06/19/23 04:05 ABG O2 Saturation 92 % (94-98) L 06/19/23 04:05 ABG Base Excess 12.4 mmol/L (-2.0-3.0) H 06/19/23 04:05 Davie Test POSITIVE 06/19/23 04:05 VBG pH 7.348 (7.31-7.41) 06/18/23 05:47 Ionized Calcium 1.29 mmol/L (1.15-1.33) 06/18/23 05:47 Respiration Rate 16 b/min 06/14/23 15:30 O2 Delivery Device NON REBREATHER MASK 06/19/23 04:05 O2 Liters/Min 15.00 LPM 06/19/23 04:05 Vent Mode SYNCHRONOUS/TIMES 06/14/23 15:30 FiO2 50.00 06/14/23 15:30 EPAP 6 cmH2O 06/14/23 15:30 IPAP 14 cmH2O 06/14/23 15:30 Sodium 143 mmol/L (135-145) 06/25/23 05:06 Potassium 4.0 mmol/L (3.5-4.5) 06/25/23 05:06 Chloride 98 mmol/L (101-111) L 06/25/23 05:06 Carbon Dioxide 40 mmol/L (21-32) H* 06/25/23 05:06 Anion Gap 5.0 (6-13) L 06/25/23 05:06 BUN 9 mg/dL (6-20) 06/25/23 05:06 Creatinine 0.5 mg/dL (0.6-1.3) L 06/25/23 05:06 Estimated GFR (MDRD) 129 (>89) 06/25/23 05:06 Glucose 185 mg/dL (74-104) H 06/25/23 05:06 POC Whole Bld Glucose 188 mg/dL (70 - 100) H 07/03/23 11:08 Estimat Average Glucose 226 mg/dL (70-100) H 06/10/23 06:12 Hemoglobin A1c % 9.5 % (4.27-6.07) H 06/10/23 06:12 Calcium 10.5 mg/dL (8.5-10.3) H 06/25/23 05:06 Phosphorus 3.3 mg/dL (2.5-5.0) 06/18/23 05:47 Magnesium 1.7 mg/dL (1.7-2.3) 06/25/23 05:06 Total Bilirubin 0.9 mg/dL (0.2-1.0) 06/09/23 09:53 AST 13 IU/L (10-42) 06/09/23 09:53 ALT 10 IU/L (10-60) 06/09/23 09:53 Alkaline Phosphatase 76 IU/L (42-121) 06/09/23 09:53 Troponin I High Sens 36.4 ng/L (2.3-14.8) H* 06/11/23 11:31 B-Natriuretic Peptide 60 pg/mL (5-100) 06/20/23 06:06 Total Protein 6.4 g/dL (6.4-8.9) 06/09/23 09:53 Albumin 3.9 g/dL (3.2-5.5) 06/09/23 09:53 Globulin 2.5 g/dL (2.1-4.2) 06/09/23 09:53 Albumin/Globulin Ratio 1.6 (1.0-2.2) 06/09/23 09:53 TSH 1.74 uIU/mL (0.34-5.60) 06/10/23 06:12 Urine Color DARK YELLOW 06/09/23 12:25 Urine Clarity CLOUDY (CLEAR) 06/09/23 12:25 Urine pH 6.0 PH (5.0-7.5) 06/09/23 12:25 Ur Specific [place] 1.025 (1.002-1.030) 06/09/23 12:25 Urine Protein TRACE mg/dL (NEGATIVE) 06/09/23 12:25 Urine Glucose (UA) 250 mg/dL (NEGATIVE) H 06/09/23 12:25 Urine Ketones NEGATIVE mg/dL (NEGATIVE) 06/09/23 12:25 Urine Occult Blood LARGE (NEGATIVE) H 06/09/23 12:25 Urine Nitrite NEGATIVE (NEGATIVE) 06/09/23 12:25 Urine Bilirubin NEGATIVE (NEGATIVE) 06/09/23 12:25 Urine Urobilinogen 0.2 (NORMAL) E.U./dL (NORMAL) 06/09/23 12:25 Ur Leukocyte Esterase NEGATIVE (NEGATIVE) 06/09/23 12:25 Urine RBC TNTC /HPF (0-5) H 06/09/23 12:25 Urine WBC 4-5 /HPF (0-5) 06/09/23 12:25 Ur Squamous Epith Cells MOD Squamous (<= Few) H 06/09/23 12:25 Urine Crystals >50 Calcium Oxalate /LPF 06/09/23 12:25 Urine Bacteria Moderate /HPF (None Seen) H 06/09/23 12:25 Urine Mucus Few Strands 06/09/23 12:25 Ur Microscopic Review INDICATED 06/09/23 12:25 Urine Culture Comments NOT INDICATED 06/09/23 12:25 Nasal Adenovirus (PCR) NOT DETECTED 06/09/23 09:50 Nasal B. parapertussis DNA (PCR) NOT DETECTED 06/09/23 09:50 Nasal Coronavir 229E PCR NOT DETECTED 06/09/23 09:50 Nasal Coronavir HKU1 PCR NOT DETECTED 06/09/23 09:50 Nasal Coronavir NL63 PCR NOT DETECTED 06/09/23 09:50 Nasal Coronavir OC43 PCR NOT DETECTED 06/09/23 09:50 Nasal Enterovir/Rhinovir PCR NOT DETECTED 06/09/23 09:50 Nasal Influenza B PCR NOT DETECTED 06/09/23 09:50 Nasal Influenza A PCR NOT DETECTED 06/09/23 09:50 Nasal Parainfluen 1 PCR NOT DETECTED 06/09/23 09:50 Nasal Parainfluen 2 PCR NOT DETECTED 06/09/23 09:50 Nasal Parainfluen 3 PCR NOT DETECTED 06/09/23 09:50 Nasal Parainfluen 4 PCR NOT DETECTED 06/09/23 09:50 Nasal RSV (PCR) NOT DETECTED 06/09/23 09:50 Nasal Screen MRSA (PCR) NEGATIVE (NEGATIVE) 06/11/23 05:00 Nasal B.pertussis DNA PCR NOT DETECTED 06/09/23 09:50 Nasal C.pneumoniae (PCR) NOT DETECTED 06/09/23 09:50 Amish Human Metapneumo PCR NOT DETECTED 06/09/23 09:50 Nasal M.pneumoniae (PCR) NOT DETECTED 06/09/23 09:50 Nasal SARS-CoV-2 (PCR) NOT DETECTED 06/09/23 09:50 Last Dose Date UNKNOWN 06/13/23 05:25 Last Dose Time UNKNOWN 06/13/23 05:25 Vancomycin Peak 43.7 ug/mL (20.0-40.0) H 06/11/23 21:00 Vancomycin Trough 21.6 ug/mL 06/13/23 05:25 Sepsis Event Note (H) - Evaluation Current Stage of Sepsis: Ruled out Current Medications - Current Medications Current Medications: Active Medications Generic Name Dose Route Start Last Admin Trade Name Freq PRN Reason Stop Dose Admin Acetaminophen 650 mg 06/09/23 13:50 07/02/23 23:03 Acetaminophen 325 Mg Tablet PO 650 mg Q4HR PRN Administration Pain 1 to 4, or Fever Carboxymethylcellulose 1 drops 06/27/23 14:00 06/28/23 14:42 Carboxymethylcellulose Ophth Drops EACHEYE 1 drops PRN PRN Administration Dry Eye Enoxaparin Sodium 40 mg 06/10/23 09:00 07/03/23 09:16 Enoxaparin 40 Mg/0.4 Ml Syringe SUBQ 40 mg DAILY PEREZ Administration Famotidine 20 mg 06/18/23 21:00 07/03/23 09:15 Famotidine 20 Mg Tablet PO 20 mg BID PEREZ Administration Gabapentin 300 mg 06/15/23 02:25 07/02/23 20:34 Gabapentin 300 Mg Capsule PO 300 mg QPM PEREZ Administration Guaifenesin 600 mg 06/12/23 14:00 07/03/23 09:15 Guaifenesin 600 Mg Tablet PO 600 mg BID PEREZ Administration Insulin Glargine-yfgn 20 unit 06/15/23 21:00 07/02/23 20:37 Insulin Glargine-Yfgn 300 Unit/3 Ml Pen SUBQ 20 unit QPM PEREZ Administration Insulin Glargine-yfgn 12 unit 07/01/23 09:45 07/03/23 09:16 Insulin Glargine-Yfgn 300 Unit/3 Ml Pen SUBQ 12 unit DAILY PEREZ Administration Insulin Human Lispro 3 - 11 unit 06/27/23 17:00 07/03/23 12:00 Insulin Lispro 300 Unit/3 Ml Pen SUBQ 5 unit 0800,1200,1700,2100 PEREZ Administration Protocol Insulin Human Lispro 5 unit 06/29/23 12:00 07/03/23 12:01 Insulin Lispro 300 Unit/3 Ml Pen SUBQ 5 unit TIDWM PEREZ Administration Protocol Magnesium Oxide 400 mg 06/17/23 09:00 07/03/23 09:15 Magnesium Oxide 400 Mg Tablet PO 400 mg DAILYWM PEREZ Administration Metoprolol Tartrate 25 mg 06/19/23 21:00 07/03/23 09:14 Metoprolol Tartrate 25 Mg Tablet PO 25 mg BID PEREZ Administration Multivitamins/Minerals 1 tab 06/22/23 14:00 07/03/23 09:15 Multivitamin W/Minerals Tablet PO 1 tab DAILYWM PEREZ Administration Trazodone HCl 25 mg 06/16/23 21:00 07/02/23 20:34 Trazodone 50 Mg Tablet PO 25 mg QPM PEREZ Administration Gabapentin [Neurontin] 300 mg PO DAILY 06/09/23 Insulin Glargine,Hum.rec.anlog [Dannagldorita Victoria U-100] 52 units SUBQ HS 06/09/23 Liraglutide [Victoza 2-Pal] 1.2 mg SUBQ DAILY 06/09/23 Losartan Potassium 12.5 mg PO DAILY 06/09/23 Simvastatin [Zocor] 10 mg PO DAILY 06/09/23 Cholecalciferol [Vitamin D3] 400 unit PO DAILY 06/10/23 Tocopheryl [Vitamin E] 400 unit PO DAILY 06/10/23 Vitamin B Complex 1 each PO DAILY 06/10/23
[2023-07-03] MEDS: GABAPENTIN 300 MG CAPSULE PO SCH (21:48)
[2023-07-03] MEDS: traZODone 50 MG TABLET PO SCH (21:49)
[2023-07-04] MEDS: ENOXAPARIN 40 MG/0.4 ML SYRINGE SUBQ SCH (08:43)
[2023-07-04] MEDS: INSULIN GLARGINE-YFGN 300 UNIT/3 ML PEN SUBQ SCH ×2 (08:43→20:28)
[2023-07-04] MEDS: INSULIN LISPRO 300 UNIT/3 ML PEN SUBQ SCH ×7 (08:44→20:13)
[2023-07-04] MEDS: MULTIVITAMIN W/MINERALS TABLET PO SCH (08:45)
[2023-07-04] MEDS: FAMOTIDINE 20 MG TABLET PO SCH ×2 (08:45→20:08)
[2023-07-04] MEDS: METOPROLOL TARTRATE 25 MG TABLET PO SCH ×2 (08:46→20:24)
[2023-07-04] MEDS: MAGNESIUM OXIDE 400 MG TABLET PO SCH (08:46)
[2023-07-04] MEDS: guaiFENesin 600 MG TABLET PO SCH ×2 (08:46→20:09)
[2023-07-04] MEDS: ACETAMINOPHEN 325 MG TABLET PO PRN (12:26)
--- NOTE | 2023-07-04 14:58 | PROVIDER PROGRESS NOTE ---
Assessment/Plan - Problem List (1) Acute respiratory failure with hypoxia Assessment/Plan: (1) Acute respiratory failure with hypoxia Assessment/Plan: --Oxygen need was fluctuated between 3.5-5 L, to maintain oxygen saturation over 92%. Over the last 3 days, she has had good sats on 5L/min for the past 48 hours. And she has not needed CPAP. Patient is medically stable to discharge to SNF on 5L of O2. (2) CO2 narcosis Assessment/Plan: Mental status can fluctuate depends on the status of CO2 retention Evening and morning are challenging, as she was moving her oxygen oxy mask from time to time, causing desaturation and turning cyanotic and somnolent. If patient is fully awake, patient can feed herself, can carry conversation (3) DM type 2 (diabetes mellitus, type 2) Assessment/Plan: --Currently on 20 units of glargine nightly with 17 units daily. 5 units lispro 3 times daily. Plus sliding scale insulin. Nutrition is following. (5) New onset a-fib Assessment/Plan: Continue metoprolol for rate control. Was determined that she would not be a good candidate for anticoagulation due to poor cognitive function and insight. Further discussions can be held outpatient. (6) Pulmonary edema Assessment/Plan: Resolved after adequate diuresis. - Current Meds Current Meds: Current Medications Generic Name Dose Route Start Last Admin Trade Name Freq PRN Reason Stop Dose Admin Acetaminophen 650 mg 06/09/23 13:50 07/04/23 12:26 Acetaminophen 325 Mg Tablet PO 650 mg Q4HR PRN Administration Pain 1 to 4, or Fever Carboxymethylcellulose 1 drops 06/27/23 14:00 06/28/23 14:42 Carboxymethylcellulose Ophth Drops EACHEYE 1 drops PRN PRN Administration Dry Eye Famotidine 20 mg 06/18/23 21:00 07/04/23 08:45 Famotidine 20 Mg Tablet PO 20 mg BID PEREZ Administration Gabapentin 300 mg 06/15/23 02:25 07/03/23 21:48 Gabapentin 300 Mg Capsule PO 300 mg QPM PEREZ Administration Guaifenesin 600 mg 06/12/23 14:00 07/04/23 08:46 Guaifenesin 600 Mg Tablet PO 600 mg BID PEREZ Administration Insulin Glargine-yfgn 20 unit 06/15/23 21:00 07/03/23 22:02 Insulin Glargine-Yfgn 300 Unit/3 Ml Pen SUBQ 20 unit QPM PEREZ Administration Insulin Human Lispro 3 - 11 unit 06/27/23 17:00 07/04/23 12:20 Insulin Lispro 300 Unit/3 Ml Pen SUBQ 7 unit 0800,1200,1700,2100 PEREZ Administration Protocol Insulin Human Lispro 5 unit 06/29/23 12:00 07/04/23 12:21 Insulin Lispro 300 Unit/3 Ml Pen SUBQ 5 unit TIDWM PEREZ Administration Protocol Magnesium Oxide 400 mg 06/17/23 09:00 07/04/23 08:46 Magnesium Oxide 400 Mg Tablet PO 400 mg DAILYWM PEREZ Administration Metoprolol Tartrate 25 mg 06/19/23 21:00 07/04/23 08:46 Metoprolol Tartrate 25 Mg Tablet PO 25 mg BID PEREZ Administration Multivitamins/Minerals 1 tab 06/22/23 14:00 07/04/23 08:45 Multivitamin W/Minerals Tablet PO 1 tab DAILYWM PEREZ Administration Trazodone HCl 25 mg 06/16/23 21:00 07/03/23 21:49 Trazodone 50 Mg Tablet PO 25 mg QPM PEREZ Administration - Lab Result Fish Bone Diagrams: 07/02/23 05:33 06/25/23 05:06 - Additional Planning My Orders: My Active Orders 07/04/23 10:34 SCDs [RC] QSHIFT 07/05/23 09:00 Insulin Glargine-Yfgn [Semglee] 17 unit SUBQ DAILY Subjective - Subjective Patient Reports: Resting Comfortably, No Complaints Objective Vital Signs: Vital Signs - 24 hr 07/03/23 07/03/23 07/03/23 16:00 20:10 20:58 Temperature 36.6 C 36.7 C Heart Rate [ 89 87 Brachial] Respiratory 16 18 Rate Blood Pressure 107/62 115/38 L [Right Brachial artery] O2 Saturation 94 97 If not protocol 5 5 5 : Oxygen Flow, liters/minute 07/03/23 07/04/23 07/04/23 21:57 05:46 07:38 Temperature 36.5 C 36.7 C Heart Rate [ 89 100 97 Brachial] Respiratory 18 18 Rate Blood Pressure 102/53 L 124/89 H 126/62 [Right Brachial artery] O2 Saturation 94 93 If not protocol 5 5 : Oxygen Flow, liters/minute 07/04/23 07:40 Temperature Heart Rate [ Brachial] Respiratory Rate Blood Pressure [Right Brachial artery] O2 Saturation If not protocol 5 : Oxygen Flow, liters/minute Oxygen O2 Source Oxymask I&O (Last 24 Hrs): Intake and Output Totals x24h 07/02/23 07/03/23 07/04/23 23:59 23:59 23:59 Intake Total 600 1180 1200 Output Total 250 Balance 600 1180 950 General: Alert, Oriented x3, Cooperative, No acute distress Neuro: Alert, CN 2-12 Grossly Intact, Oriented Times 3 Cardiovascular: Regular rate, Normal S1, Normal S2, No murmurs Respiratory: Chest non-tender, No respiratory distress, Breath sounds nml Abdomen: Normal bowel sounds, Soft, No tenderness, No hepatospenomegaly, No masses Extremities: No clubbing, No cyanosis, Normal pulses, No tenderness/swelling - Results Results: Laboratory Results WBC 6.6 x10^3/uL (4.8-10.8) 07/02/23 05:33 RBC 4.29 10^6/uL (4.20-5.40) 07/02/23 05:33 Hgb 10.9 g/dL (12.0-16.0) L 07/02/23 05:33 Hct 39.0 % (37.0-47.0) 07/02/23 05:33 MCV 90.9 fL (81.0-99.0) 07/02/23 05:33 MCH 25.4 pg (27.0-31.0) L 07/02/23 05:33 MCHC 27.9 g/dL (32.0-36.0) L 07/02/23 05:33 RDW 15.7 % (12.0-15.0) H 07/02/23 05:33 Plt Count 179 10^3/uL (130-450) 07/02/23 05:33 MPV 10.1 fL (7.9-10.8) 07/02/23 05:33 Neut # (Auto) 3.6 10^3/uL (1.5-6.6) 07/02/23 05:33 Lymph # (Auto) 2.3 10^3/uL (1.5-3.5) 07/02/23 05:33 [place] # (Auto) 0.5 10^3/uL (0.0-1.0) 07/02/23 05:33 Eos # (Auto) 0.2 10^3/uL (0.0-0.7) 07/02/23 05:33 Baso # (Auto) 0.1 10^3/uL (0.0-0.1) 07/02/23 05:33 Absolute Nucleated RBC 0.00 x10^3/uL 07/02/23 05:33 Nucleated RBC % 0.0 /100WBC 07/02/23 05:33 Manual Slide Review Indicated 06/22/23 07:27 WBC Morphology NORMAL APPEARANCE (NORMAL) 06/13/23 05:25 Platelet Estimate NORMAL (130-450,000) (NORMAL) 06/22/23 07:27 Platelet Morphology NORMAL APPEARANCE (NORMAL) 06/22/23 07:27 RBC Morph Micro Appear 1+ HYPOCHROMASIA (NORMAL) 06/22/23 07:27 Bld Gas Analysis Time 0415 06/19/23 04:05 Sample Site RIGHT RADIAL 06/19/23 04:05 ABG pH 7.30 (7.35-7.45) L 06/19/23 04:05 ABG pCO2 87 mmHg (34-45) H* 06/19/23 04:05 ABG pO2 70 mmHg (80-100) L 06/19/23 04:05 ABG HCO3 42.1 mmol/L (22.0-26.0) H 06/19/23 04:05 ABG Total CO2 44.8 MMOL/L (21.0-29.0) H* 06/19/23 04:05 ABG O2 Saturation 92 % (94-98) L 06/19/23 04:05 ABG Base Excess 12.4 mmol/L (-2.0-3.0) H 06/19/23 04:05 Davie Test POSITIVE 06/19/23 04:05 VBG pH 7.348 (7.31-7.41) 06/18/23 05:47 Ionized Calcium 1.29 mmol/L (1.15-1.33) 06/18/23 05:47 Respiration Rate 16 b/min 06/14/23 15:30 O2 Delivery Device NON REBREATHER MASK 06/19/23 04:05 O2 Liters/Min 15.00 LPM 06/19/23 04:05 Vent Mode SYNCHRONOUS/TIMES 06/14/23 15:30 FiO2 50.00 06/14/23 15:30 EPAP 6 cmH2O 06/14/23 15:30 IPAP 14 cmH2O 06/14/23 15:30 Sodium 143 mmol/L (135-145) 06/25/23 05:06 Potassium 4.0 mmol/L (3.5-4.5) 06/25/23 05:06 Chloride 98 mmol/L (101-111) L 06/25/23 05:06 Carbon Dioxide 40 mmol/L (21-32) H* 06/25/23 05:06 Anion Gap 5.0 (6-13) L 06/25/23 05:06 BUN 9 mg/dL (6-20) 06/25/23 05:06 Creatinine 0.5 mg/dL (0.6-1.3) L 06/25/23 05:06 Estimated GFR (MDRD) 129 (>89) 06/25/23 05:06 Glucose 185 mg/dL (74-104) H 06/25/23 05:06 POC Whole Bld Glucose 250 mg/dL (70 - 100) H 07/04/23 11:14 Estimat Average Glucose 226 mg/dL (70-100) H 06/10/23 06:12 Hemoglobin A1c % 9.5 % (4.27-6.07) H 06/10/23 06:12 Calcium 10.5 mg/dL (8.5-10.3) H 06/25/23 05:06 Phosphorus 3.3 mg/dL (2.5-5.0) 06/18/23 05:47 Magnesium 1.7 mg/dL (1.7-2.3) 06/25/23 05:06 Total Bilirubin 0.9 mg/dL (0.2-1.0) 06/09/23 09:53 AST 13 IU/L (10-42) 06/09/23 09:53 ALT 10 IU/L (10-60) 06/09/23 09:53 Alkaline Phosphatase 76 IU/L (42-121) 06/09/23 09:53 Troponin I High Sens 36.4 ng/L (2.3-14.8) H* 06/11/23 11:31 B-Natriuretic Peptide 60 pg/mL (5-100) 06/20/23 06:06 Total Protein 6.4 g/dL (6.4-8.9) 06/09/23 09:53 Albumin 3.9 g/dL (3.2-5.5) 06/09/23 09:53 Globulin 2.5 g/dL (2.1-4.2) 06/09/23 09:53 Albumin/Globulin Ratio 1.6 (1.0-2.2) 06/09/23 09:53 TSH 1.74 uIU/mL (0.34-5.60) 06/10/23 06:12 Urine Color DARK YELLOW 06/09/23 12:25 Urine Clarity CLOUDY (CLEAR) 06/09/23 12:25 Urine pH 6.0 PH (5.0-7.5) 06/09/23 12:25 Ur Specific [place] 1.025 (1.002-1.030) 06/09/23 12:25 Urine Protein TRACE mg/dL (NEGATIVE) 06/09/23 12:25 Urine Glucose (UA) 250 mg/dL (NEGATIVE) H 06/09/23 12:25 Urine Ketones NEGATIVE mg/dL (NEGATIVE) 06/09/23 12:25 Urine Occult Blood LARGE (NEGATIVE) H 06/09/23 12:25 Urine Nitrite NEGATIVE (NEGATIVE) 06/09/23 12:25 Urine Bilirubin NEGATIVE (NEGATIVE) 06/09/23 12:25 Urine Urobilinogen 0.2 (NORMAL) E.U./dL (NORMAL) 06/09/23 12:25 Ur Leukocyte Esterase NEGATIVE (NEGATIVE) 06/09/23 12:25 Urine RBC TNTC /HPF (0-5) H 06/09/23 12:25 Urine WBC 4-5 /HPF (0-5) 06/09/23 12:25 Ur Squamous Epith Cells MOD Squamous (<= Few) H 06/09/23 12:25 Urine Crystals >50 Calcium Oxalate /LPF 06/09/23 12:25 Urine Bacteria Moderate /HPF (None Seen) H 06/09/23 12:25 Urine Mucus Few Strands 06/09/23 12:25 Ur Microscopic Review INDICATED 06/09/23 12:25 Urine Culture Comments NOT INDICATED 06/09/23 12:25 Nasal Adenovirus (PCR) NOT DETECTED 06/09/23 09:50 Nasal B. parapertussis DNA (PCR) NOT DETECTED 06/09/23 09:50 Nasal Coronavir 229E PCR NOT DETECTED 06/09/23 09:50 Nasal Coronavir HKU1 PCR NOT DETECTED 06/09/23 09:50 Nasal Coronavir NL63 PCR NOT DETECTED 06/09/23 09:50 Nasal Coronavir OC43 PCR NOT DETECTED 06/09/23 09:50 Nasal Enterovir/Rhinovir PCR NOT DETECTED 06/09/23 09:50 Nasal Influenza B PCR NOT DETECTED 06/09/23 09:50 Nasal Influenza A PCR NOT DETECTED 06/09/23 09:50 Nasal Parainfluen 1 PCR NOT DETECTED 06/09/23 09:50 Nasal Parainfluen 2 PCR NOT DETECTED 06/09/23 09:50 Nasal Parainfluen 3 PCR NOT DETECTED 06/09/23 09:50 Nasal Parainfluen 4 PCR NOT DETECTED 06/09/23 09:50 Nasal RSV (PCR) NOT DETECTED 06/09/23 09:50 Nasal Screen MRSA (PCR) NEGATIVE (NEGATIVE) 06/11/23 05:00 Nasal B.pertussis DNA PCR NOT DETECTED 06/09/23 09:50 Nasal C.pneumoniae (PCR) NOT DETECTED 06/09/23 09:50 Amish Human Metapneumo PCR NOT DETECTED 06/09/23 09:50 Nasal M.pneumoniae (PCR) NOT DETECTED 06/09/23 09:50 Nasal SARS-CoV-2 (PCR) NOT DETECTED 06/09/23 09:50 Last Dose Date UNKNOWN 06/13/23 05:25 Last Dose Time UNKNOWN 06/13/23 05:25 Vancomycin Peak 43.7 ug/mL (20.0-40.0) H 06/11/23 21:00 Vancomycin Trough 21.6 ug/mL 06/13/23 05:25 Sepsis Event Note (H) - Evaluation Current Stage of Sepsis: Ruled out Current Medications - Current Medications Current Medications: Patient History Medication Instructions Recorded Confirmed Gabapentin [Neurontin] 300 mg PO DAILY 06/09/23 06/09/23 Insulin Glargine,Hum.rec.anlog 52 units SUBQ HS 06/09/23 06/10/23 [Basaglar Kwikpen U-100] Liraglutide [Victoza 2-Pal] 1.2 mg SUBQ DAILY 06/09/23 06/09/23 Losartan Potassium 12.5 mg PO DAILY 06/09/23 06/09/23 Simvastatin [Zocor] 10 mg PO DAILY 06/09/23 06/09/23 Cholecalciferol [Vitamin D3] 400 unit PO DAILY 06/10/23 06/10/23 Tocopheryl [Vitamin E] 400 unit PO DAILY 06/10/23 06/10/23 Vitamin B Complex 1 each PO DAILY 06/10/23 06/10/23
[2023-07-04] MEDS: GABAPENTIN 300 MG CAPSULE PO SCH (20:09)
[2023-07-04] MEDS: traZODone 50 MG TABLET PO SCH (20:14)
[2023-07-05] MEDS: INSULIN LISPRO 300 UNIT/3 ML PEN SUBQ SCH ×7 (08:10→21:39)
[2023-07-05] MEDS: INSULIN GLARGINE-YFGN 300 UNIT/3 ML PEN SUBQ SCH ×2 (08:12→21:38)
[2023-07-05] MEDS: guaiFENesin 600 MG TABLET PO SCH ×2 (08:13→21:37)
[2023-07-05] MEDS: MAGNESIUM OXIDE 400 MG TABLET PO SCH (08:13)
[2023-07-05] MEDS: MULTIVITAMIN W/MINERALS TABLET PO SCH (08:13)
[2023-07-05] MEDS: METOPROLOL TARTRATE 25 MG TABLET PO SCH ×2 (08:13→21:41)
[2023-07-05] MEDS: FAMOTIDINE 20 MG TABLET PO SCH ×2 (08:13→21:37)
--- NOTE | 2023-07-05 08:59 | PROVIDER PROGRESS NOTE ---
Assessment/Plan - Problem List (1) Acute respiratory failure with hypoxia Assessment/Plan: (1) Acute respiratory failure with hypoxia Assessment/Plan: --Oxygen need was fluctuated between 3.5-5 L, to maintain oxygen saturation over 92%. Over the last 3 days, she has had good sats on 5L/min for the past 48 hours. And she has not needed CPAP. Patient is medically stable to discharge to SNF on 5L of O2. --Daily weights have been stable. Could consider a small dose of oral lasix on discharge if her weight trends upwards. (2) CO2 narcosis Assessment/Plan: Mental status can fluctuate depends on the status of CO2 retention Evening and morning are challenging, as she was moving her oxygen oxy mask from time to time, causing desaturation and turning cyanotic and somnolent. If patient is fully awake, patient can feed herself, can carry conversation (3) DM type 2 (diabetes mellitus, type 2) Assessment/Plan: --Currently on 20 units of glargine nightly with 17 units daily. 5 units lispro 3 times daily. Plus sliding scale insulin. Nutrition is following. (5) New onset a-fib Assessment/Plan: Continue metoprolol for rate control. Was determined that she would not be a good candidate for anticoagulation due to poor cognitive function and insight. Further discussions can be held outpatient. (6) Pulmonary edema Assessment/Plan: Resolved after adequate diuresis. - Current Meds Current Meds: Current Medications Generic Name Dose Route Start Last Admin Trade Name Freq PRN Reason Stop Dose Admin Acetaminophen 650 mg 06/09/23 13:50 07/04/23 12:26 Acetaminophen 325 Mg Tablet PO 650 mg Q4HR PRN Administration Pain 1 to 4, or Fever Carboxymethylcellulose 1 drops 06/27/23 14:00 06/28/23 14:42 Carboxymethylcellulose Ophth Drops EACHEYE 1 drops PRN PRN Administration Dry Eye Famotidine 20 mg 06/18/23 21:00 07/05/23 08:13 Famotidine 20 Mg Tablet PO 20 mg BID PEREZ Administration Gabapentin 300 mg 06/15/23 02:25 07/04/23 20:09 Gabapentin 300 Mg Capsule PO 300 mg QPM PEREZ Administration Guaifenesin 600 mg 06/12/23 14:00 07/05/23 08:13 Guaifenesin 600 Mg Tablet PO 600 mg BID PEREZ Administration Insulin Glargine-yfgn 20 unit 06/15/23 21:00 07/04/23 20:28 Insulin Glargine-Yfgn 300 Unit/3 Ml Pen SUBQ 20 unit QPM PEREZ Administration Insulin Glargine-yfgn 17 unit 07/05/23 09:00 07/05/23 08:12 Insulin Glargine-Yfgn 300 Unit/3 Ml Pen SUBQ 17 unit DAILY PEREZ Administration Insulin Human Lispro 3 - 11 unit 06/27/23 17:00 07/05/23 08:10 Insulin Lispro 300 Unit/3 Ml Pen SUBQ 3 unit 0800,1200,1700,2100 PEREZ Administration Protocol Insulin Human Lispro 5 unit 06/29/23 12:00 07/05/23 08:12 Insulin Lispro 300 Unit/3 Ml Pen SUBQ 5 unit TIDWM PEREZ Administration Protocol Magnesium Oxide 400 mg 06/17/23 09:00 07/05/23 08:13 Magnesium Oxide 400 Mg Tablet PO 400 mg DAILYWM PEREZ Administration Metoprolol Tartrate 25 mg 06/19/23 21:00 07/05/23 08:13 Metoprolol Tartrate 25 Mg Tablet PO 25 mg BID PEREZ Administration Multivitamins/Minerals 1 tab 06/22/23 14:00 07/05/23 08:13 Multivitamin W/Minerals Tablet PO 1 tab DAILYWM PEREZ Administration Trazodone HCl 25 mg 06/16/23 21:00 07/04/23 20:14 Trazodone 50 Mg Tablet PO 25 mg QPM PEREZ Administration - Lab Result Fish Bone Diagrams: 07/02/23 05:33 06/25/23 05:06 - Additional Planning My Orders: My Active Orders 07/04/23 10:34 SCDs [RC] QSHIFT 07/05/23 09:00 Insulin Glargine-Yfgn [Semglee] 17 unit SUBQ DAILY Subjective - Subjective Patient Reports: Feeling Better (On 3.5L O2 today.), Resting Comfortably, No Complaints Objective Vital Signs: Vital Signs - 24 hr 07/04/23 07/04/23 07/04/23 20:05 20:10 20:24 Temperature 37 C Heart Rate [ 85 Brachial] Respiratory 17 Rate Blood Pressure 105/57 L Blood Pressure 105/57 L [Right Brachial artery] O2 Saturation 93 If not protocol 4 3.5 : Oxygen Flow, liters/minute 07/05/23 06:24 Temperature 36.5 C Heart Rate [ 93 Brachial] Respiratory 17 Rate Blood Pressure Blood Pressure 122/67 [Right Brachial artery] O2 Saturation 95 If not protocol 3.5 : Oxygen Flow, liters/minute Oxygen O2 Source Nasal cannula I&O (Last 24 Hrs): Intake and Output Totals x24h 07/03/23 07/04/23 07/05/23 23:59 23:59 23:59 Intake Total 1180 1320 720 Output Total 250 Balance 1180 1070 720 General: Alert, Oriented x3, Cooperative, No acute distress Neuro: Alert, CN 2-12 Grossly Intact, Oriented Times 3 Cardiovascular: Regular rate, Normal S1, Normal S2, No murmurs Respiratory: Chest non-tender, No respiratory distress, Breath sounds nml Abdomen: Normal bowel sounds, Soft, No tenderness, No hepatospenomegaly, No masses Extremities: No clubbing, No cyanosis, No edema, Normal pulses, No tenderness/swelling - Results Results: Laboratory Results WBC 6.6 x10^3/uL (4.8-10.8) 07/02/23 05:33 RBC 4.29 10^6/uL (4.20-5.40) 07/02/23 05:33 Hgb 10.9 g/dL (12.0-16.0) L 07/02/23 05:33 Hct 39.0 % (37.0-47.0) 07/02/23 05:33 MCV 90.9 fL (81.0-99.0) 07/02/23 05:33 MCH 25.4 pg (27.0-31.0) L 07/02/23 05:33 MCHC 27.9 g/dL (32.0-36.0) L 07/02/23 05:33 RDW 15.7 % (12.0-15.0) H 07/02/23 05:33 Plt Count 179 10^3/uL (130-450) 07/02/23 05:33 MPV 10.1 fL (7.9-10.8) 07/02/23 05:33 Neut # (Auto) 3.6 10^3/uL (1.5-6.6) 07/02/23 05:33 Lymph # (Auto) 2.3 10^3/uL (1.5-3.5) 07/02/23 05:33 [place] # (Auto) 0.5 10^3/uL (0.0-1.0) 07/02/23 05:33 Eos # (Auto) 0.2 10^3/uL (0.0-0.7) 07/02/23 05:33 Baso # (Auto) 0.1 10^3/uL (0.0-0.1) 07/02/23 05:33 Absolute Nucleated RBC 0.00 x10^3/uL 07/02/23 05:33 Nucleated RBC % 0.0 /100WBC 07/02/23 05:33 Manual Slide Review Indicated 06/22/23 07:27 WBC Morphology NORMAL APPEARANCE (NORMAL) 06/13/23 05:25 Platelet Estimate NORMAL (130-450,000) (NORMAL) 06/22/23 07: Platelet Morphology NORMAL APPEARANCE (NORMAL) 06/22/23 07:27 RBC Morph Micro Appear 1+ HYPOCHROMASIA (NORMAL) 06/22/23 07:27 Bld Gas Analysis Time 0415 06/19/23 04:05 Sample Site RIGHT RADIAL 06/19/23 04:05 ABG pH 7.30 (7.35-7.45) L 06/19/23 04:05 ABG pCO2 87 mmHg (34-45) H* 06/19/23 04:05 ABG pO2 70 mmHg (80-100) L 06/19/23 04:05 ABG HCO3 42.1 mmol/L (22.0-26.0) H 06/19/23 04:05 ABG Total CO2 44.8 MMOL/L (21.0-29.0) H* 06/19/23 04:05 ABG O2 Saturation 92 % (94-98) L 06/19/23 04:05 ABG Base Excess 12.4 mmol/L (-2.0-3.0) H 06/19/23 04:05 [place] Test POSITIVE 06/19/23 04:05 VBG pH 7.348 (7.31-7.41) 06/18/23 05:47 Ionized Calcium 1.29 mmol/L (1.15-1.33) 06/18/23 05:47 Respiration Rate 16 b/min 06/14/23 15:30 O2 Delivery Device NON REBREATHER MASK 06/19/23 04:05 O2 Liters/Min 15.00 LPM 06/19/23 04:05 Vent Mode SYNCHRONOUS/TIMES 06/14/23 15:30 FiO2 50.00 06/14/23 15:30 EPAP 6 cmH2O 06/14/23 15:30 IPAP 14 cmH2O 06/14/23 15:30 Sodium 143 mmol/L (135-145) 06/25/23 05:06 Potassium 4.0 mmol/L (3.5-4.5) 06/25/23 05:06 Chloride 98 mmol/L (101-111) L 06/25/23 05:06 Carbon Dioxide 40 mmol/L (21-32) H* 06/25/23 05:06 Anion Gap 5.0 (6-13) L 06/25/23 05:06 BUN 9 mg/dL (6-20) 06/25/23 05:06 Creatinine 0.5 mg/dL (0.6-1.3) L 06/25/23 05:06 Estimated GFR (MDRD) 129 (>89) 06/25/23 05:06 Glucose 185 mg/dL (74-104) H 06/25/23 05:06 POC Whole Bld Glucose 157 mg/dL (70 - 100) H 07/05/23 07:19 Estimat Average Glucose 226 mg/dL (70-100) H 06/10/23 06:12 Hemoglobin A1c % 9.5 % (4.27-6.07) H 06/10/23 06:12 Calcium 10.5 mg/dL (8.5-10.3) H 06/25/23 05:06 Phosphorus 3.3 mg/dL (2.5-5.0) 06/18/23 05:47 Magnesium 1.7 mg/dL (1.7-2.3) 06/25/23 05:06 Total Bilirubin 0.9 mg/dL (0.2-1.0) 06/09/23 09:53 AST 13 IU/L (10-42) 06/09/23 09:53 ALT 10 IU/L (10-60) 06/09/23 09:53 Alkaline Phosphatase 76 IU/L (42-121) 06/09/23 09:53 Troponin I High Sens 36.4 ng/L (2.3-14.8) H* 06/11/23 11:31 B-Natriuretic Peptide 60 pg/mL (5-100) 06/20/23 06:06 Total Protein 6.4 g/dL (6.4-8.9) 06/09/23 09:53 Albumin 3.9 g/dL (3.2-5.5) 06/09/23 09:53 Globulin 2.5 g/dL (2.1-4.2) 06/09/23 09:53 Albumin/Globulin Ratio 1.6 (1.0-2.2) 06/09/23 09:53 TSH 1.74 uIU/mL (0.34-5.60) 06/10/23 06:12 Urine Color DARK YELLOW 06/09/23 12:25 Urine Clarity CLOUDY (CLEAR) 06/09/23 12:25 Urine pH 6.0 PH (5.0-7.5) 06/09/23 12:25 Ur Specific [place] 1.025 (1.002-1.030) 06/09/23 12:25 Urine Protein TRACE mg/dL (NEGATIVE) 06/09/23 12:25 Urine Glucose (UA) 250 mg/dL (NEGATIVE) H 06/09/23 12:25 Urine Ketones NEGATIVE mg/dL (NEGATIVE) 06/09/23 12:25 Urine Occult Blood LARGE (NEGATIVE) H 06/09/23 12:25 Urine Nitrite NEGATIVE (NEGATIVE) 06/09/23 12:25 Urine Bilirubin NEGATIVE (NEGATIVE) 06/09/23 12:25 Urine Urobilinogen 0.2 (NORMAL) E.U./dL (NORMAL) 06/09/23 12:25 Ur Leukocyte Esterase NEGATIVE (NEGATIVE) 06/09/23 12:25 Urine RBC TNTC /HPF (0-5) H 06/09/23 12:25 Urine WBC 4-5 /HPF (0-5) 06/09/23 12:25 Ur Squamous Epith Cells MOD Squamous (<= Few) H 06/09/23 12:25 Urine Crystals >50 Calcium Oxalate /LPF 06/09/23 12:25 Urine Bacteria Moderate /HPF (None Seen) H 06/09/23 12:25 Urine Mucus Few Strands 06/09/23 12:25 Ur Microscopic Review INDICATED 06/09/23 12:25 Urine Culture Comments NOT INDICATED 06/09/23 12:25 Nasal Adenovirus (PCR) NOT DETECTED 06/09/23 09:50 Nasal B. parapertussis DNA (PCR) NOT DETECTED 06/09/23 09:50 Nasal Coronavir 229E PCR NOT DETECTED 06/09/23 09:50 Nasal Coronavir HKU1 PCR NOT DETECTED 06/09/23 09:50 Nasal Coronavir NL63 PCR NOT DETECTED 06/09/23 09:50 Nasal Coronavir OC43 PCR NOT DETECTED 06/09/23 09:50 Nasal Enterovir/Rhinovir PCR NOT DETECTED 06/09/23 09:50 Nasal Influenza B PCR NOT DETECTED 06/09/23 09:50 Nasal Influenza A PCR NOT DETECTED 06/09/23 09:50 Nasal Parainfluen 1 PCR NOT DETECTED 06/09/23 09:50 Nasal Parainfluen 2 PCR NOT DETECTED 06/09/23 09:50 Nasal Parainfluen 3 PCR NOT DETECTED 06/09/23 09:50 Nasal Parainfluen 4 PCR NOT DETECTED 06/09/23 09:50 Nasal RSV (PCR) NOT DETECTED 06/09/23 09:50 Nasal Screen MRSA (PCR) NEGATIVE (NEGATIVE) 06/11/23 05:00 Nasal B.pertussis DNA PCR NOT DETECTED 06/09/23 09:50 Nasal C.pneumoniae (PCR) NOT DETECTED 06/09/23 09:50 Amish Human Metapneumo PCR NOT DETECTED 06/09/23 09:50 Nasal M.pneumoniae (PCR) NOT DETECTED 06/09/23 09:50 Nasal SARS-CoV-2 (PCR) NOT DETECTED 06/09/23 09:50 Last Dose Date UNKNOWN 06/13/23 05:25 Last Dose Time UNKNOWN 06/13/23 05:25 Vancomycin Peak 43.7 ug/mL (20.0-40.0) H 06/11/23 21:00 Vancomycin Trough 21.6 ug/mL 06/13/23 05:25 Sepsis Event Note (H) - Evaluation Current Stage of Sepsis: Ruled out Current Medications - Current Medications Current Medications: Active Medications Generic Name Dose Route Start Last Admin Trade Name Freq PRN Reason Stop Dose Admin Acetaminophen 650 mg 06/09/23 13:50 07/04/23 12:26 Acetaminophen 325 Mg Tablet PO 650 mg Q4HR PRN Administration Pain 1 to 4, or Fever Carboxymethylcellulose 1 drops 11/04/23 14:00 06/28/23 14:42 Carboxymethylcellulose Ophth Drops EACHEYE 1 drops PRN PRN Administration Dry Eye Famotidine 20 mg 06/18/23 21:00 07/05/23 08:13 Famotidine 20 Mg Tablet PO 20 mg BID PEREZ Administration Gabapentin 300 mg 06/15/23 02:25 07/04/23 20:09 Gabapentin 300 Mg Capsule PO 300 mg QPM PEREZ Administration Guaifenesin 600 mg 06/12/23 14:00 07/05/23 08:13 Guaifenesin 600 Mg Tablet PO 600 mg BID PEREZ Administration Insulin Glargine-yfgn 20 unit 06/15/23 21:00 07/04/23 20:28 Insulin Glargine-Yfgn 300 Unit/3 Ml Pen SUBQ 20 unit QPM PEREZ Administration Insulin Glargine-yfgn 17 unit 07/05/23 09:00 07/05/23 08:12 Insulin Glargine-Yfgn 300 Unit/3 Ml Pen SUBQ 17 unit DAILY PEREZ Administration Insulin Human Lispro 3 - 11 unit 06/27/23 17:00 07/05/23 08:10 Insulin Lispro 300 Unit/3 Ml Pen SUBQ 3 unit 0800,1200,1700,2100 PEREZ Administration Protocol Insulin Human Lispro 5 unit 06/29/23 12:00 07/05/23 08:12 Insulin Lispro 300 Unit/3 Ml Pen SUBQ 5 unit TIDWM PEREZ Administration Protocol Magnesium Oxide 400 mg 06/17/23 09:00 07/05/23 08:13 Magnesium Oxide 400 Mg Tablet PO 400 mg DAILYWM PEREZ Administration Metoprolol Tartrate 25 mg 06/19/23 21:00 07/05/23 08:13 Metoprolol Tartrate 25 Mg Tablet PO 25 mg BID PEREZ Administration Multivitamins/Minerals 1 tab 06/22/23 14:00 07/05/23 08:13 Multivitamin W/Minerals Tablet PO 1 tab DAILYWM PEREZ Administration Trazodone HCl 25 mg 06/16/23 21:00 07/04/23 20:14 Trazodone 50 Mg Tablet PO 25 mg QPM PEREZ Administration Gabapentin [Neurontin] 300 mg PO DAILY 06/09/23 Insulin Glargine,Hum.rec.anlog [Basaglar Kwikpen U-100] 52 units SUBQ HS 06/09/23 Liraglutide [Victoza 2-Pal] 1.2 mg SUBQ DAILY 06/09/23 Losartan Potassium 12.5 mg PO DAILY 06/09/23 Simvastatin [Zocor] 10 mg PO DAILY 06/09/23 Cholecalciferol [Vitamin D3] 400 unit PO DAILY 06/10/23 Tocopheryl [Vitamin E] 400 unit PO DAILY 06/10/23 Vitamin B Complex 1 each PO DAILY 06/10/23
[2023-07-05] MEDS: traZODone 50 MG TABLET PO SCH (21:36)
[2023-07-05] MEDS: GABAPENTIN 300 MG CAPSULE PO SCH (21:37)
[2023-07-06] MEDS: guaiFENesin 600 MG TABLET PO SCH ×2 (08:20→22:10)
[2023-07-06] MEDS: FAMOTIDINE 20 MG TABLET PO SCH ×2 (08:20→22:10)
[2023-07-06] MEDS: MULTIVITAMIN W/MINERALS TABLET PO SCH (08:20)
[2023-07-06] MEDS: INSULIN LISPRO 300 UNIT/3 ML PEN SUBQ SCH ×7 (08:20→22:11)
[2023-07-06] MEDS: MAGNESIUM OXIDE 400 MG TABLET PO SCH (08:20)
[2023-07-06] MEDS: INSULIN GLARGINE-YFGN 300 UNIT/3 ML PEN SUBQ SCH ×2 (08:21→22:11)
[2023-07-06] MEDS: METOPROLOL TARTRATE 25 MG TABLET PO SCH ×2 (08:24→22:17)
[2023-07-06] MEDS ORDERED: METOPROLOL TARTRATE 25 MG TABLET PO SCH (10:51)
--- NOTE | 2023-07-06 11:28 | PROVIDER PROGRESS NOTE ---
Assessment/Plan - Problem List (1) Acute respiratory failure with hypoxia Assessment/Plan: (1) Acute respiratory failure with hypoxia Assessment/Plan: --Oxygen need was fluctuated between 3.5-5 L, to maintain oxygen saturation over 92%. Over the last 3 days, she has had good sats on 5L/min for the past 48 hours. And she has not needed CPAP. Patient is medically stable to discharge to SNF on 5L of O2. --Daily weights have been stable. Could consider a small dose of oral lasix on discharge if her weight trends upwards. (2) CO2 narcosis Assessment/Plan: Mental status can fluctuate depends on the status of CO2 retention Evening and morning are challenging, as she was moving her oxygen oxy mask from time to time, causing desaturation and turning cyanotic and somnolent. If patient is fully awake, patient can feed herself, can carry conversation (3) DM type 2 (diabetes mellitus, type 2) Assessment/Plan: --Currently on 20 units of glargine nightly with 17 units daily. 5 units lispro 3 times daily. Plus sliding scale insulin. Nutrition is following. (5) New onset a-fib Assessment/Plan: Continue metoprolol for rate control. Was determined that she would not be a good candidate for anticoagulation due to poor cognitive function and insight. Further discussions can be held outpatient. (6) Pulmonary edema Assessment/Plan: Resolved after adequate diuresis. Dispo: Medically stable. Pending placement. Maintaining supplemental oxygen below 6L. - Current Meds Current Meds: Current Medications Generic Name Dose Route Start Last Admin Trade Name Freq PRN Reason Stop Dose Admin Acetaminophen 650 mg 06/09/23 13:50 07/04/23 12:26 Acetaminophen 325 Mg Tablet PO 650 mg Q4HR PRN Administration Pain 1 to 4, or Fever Carboxymethylcellulose 1 drops 06/27/23 14:00 06/28/23 14:42 Carboxymethylcellulose Ophth Drops EACHEYE 1 drops PRN PRN Administration Dry Eye Famotidine 20 mg 06/18/23 21:00 07/06/23 08:20 Famotidine 20 Mg Tablet PO 20 mg BID PEREZ Administration Gabapentin 300 mg 06/15/23 02:25 07/05/23 21:37 Gabapentin 300 Mg Capsule PO 300 mg QPM PEREZ Administration Guaifenesin 600 mg 06/12/23 14:00 07/06/23 08:20 Guaifenesin 600 Mg Tablet PO 600 mg BID PEREZ Administration Insulin Glargine-yfgn 20 unit 06/15/23 21:00 07/05/23 21:38 Insulin Glargine-Yfgn 300 Unit/3 Ml Pen SUBQ 20 unit QPM PEREZ Administration Insulin Glargine-yfgn 17 unit 07/05/23 09:00 07/06/23 08:21 Insulin Glargine-Yfgn 300 Unit/3 Ml Pen SUBQ 17 unit DAILY PEREZ Administration Insulin Human Lispro 3 - 11 unit 06/27/23 17:00 07/06/23 08:20 Insulin Lispro 300 Unit/3 Ml Pen SUBQ Not Given 0800,1200,1700,2100 [facility] Protocol Insulin Human Lispro 5 unit 06/29/23 12:00 07/06/23 08:21 Insulin Lispro 300 Unit/3 Ml Pen SUBQ 5 unit TIDWM PEREZ Administration Protocol Magnesium Oxide 400 mg 06/17/23 09:00 07/06/23 08:20 Magnesium Oxide 400 Mg Tablet PO 400 mg DAILYWM PEREZ Administration Multivitamins/Minerals 1 tab 06/22/23 14:00 07/06/23 08:20 Multivitamin W/Minerals Tablet PO 1 tab DAILYWM PEREZ Administration Trazodone HCl 25 mg 06/16/23 21:00 07/05/23 21:36 Trazodone 50 Mg Tablet PO 25 mg QPM PEREZ Administration - Lab Result Fish Bone Diagrams: 07/02/23 05:33 06/25/23 05:06 - Additional Planning My Orders: My Active Orders 07/06/23 21:00 Metoprolol Tartrate [Lopressor] 12.5 mg PO BID Subjective - Subjective Patient Reports: Feeling Better, Resting Comfortably, No Complaints Objective Vital Signs: Vital Signs - 24 hr 07/05/23 07/05/23 07/05/23 21:41 22:00 22:21 Temperature 36.6 C Heart Rate [ 88 Brachial] Respiratory 16 Rate Blood Pressure 102/60 Blood Pressure 102/60 [Right Brachial artery] O2 Saturation 94 If not protocol 3.5 3.5 : Oxygen Flow, liters/minute 07/06/23 07/06/23 07/06/23 04:07 07:24 07:48 Temperature 36.5 C 36.4 C L Heart Rate [ 85 65 Brachial] Respiratory 17 17 Rate Blood Pressure Blood Pressure 101/61 114/57 L [Right Brachial artery] O2 Saturation 94 96 If not protocol 3.5 3.5 3.5 : Oxygen Flow, liters/minute 07/06/23 07/06/23 08:24 08:34 Temperature Heart Rate [ 66 Brachial] Respiratory 18 Rate Blood Pressure 97/51 L Blood Pressure 93/60 [Right Brachial artery] O2 Saturation If not protocol 3.5 : Oxygen Flow, liters/minute Oxygen O2 Source Nasal cannula I&O (Last 24 Hrs): Intake and Output Totals x24h 07/04/23 07/05/23 07/06/23 23:59 23:59 23:59 Intake Total 1320 1450 290 Output Total 250 Balance 1070 1450 290 General: Alert, Oriented x3, Cooperative, No acute distress Neuro: Alert, CN 2-12 Grossly Intact, Oriented Times 3 Cardiovascular: Regular rate, Normal S1, Normal S2, No murmurs Respiratory: Chest non-tender, No respiratory distress, Breath sounds nml Abdomen: Normal bowel sounds, Soft, No tenderness, No hepatospenomegaly, No masses Extremities: No clubbing, No cyanosis, No edema, Normal pulses, No tenderness/swelling Skin: No rashes, No breakdown, No significant lesion - Results Results: Laboratory Results WBC 6.6 x10^3/uL (4.8-10.8) 07/02/23 05:33 RBC 4.29 10^6/uL (4.20-5.40) 07/02/23 05:33 Hgb 10.9 g/dL (12.0-16.0) L 07/02/23 05:33 Hct 39.0 % (37.0-47.0) 07/02/23 05:33 MCV 90.9 fL (81.0-99.0) 07/02/23 05:33 MCH 25.4 pg (27.0-31.0) L 07/02/23 05:33 MCHC 27.9 g/dL (32.0-36.0) L 07/02/23 05:33 RDW 15.7 % (12.0-15.0) H 07/02/23 05:33 Plt Count 179 10^3/uL (130-450) 07/02/23 05:33 MPV 10.1 fL (7.9-10.8) 07/02/23 05:33 Neut # (Auto) 3.6 10^3/uL (1.5-6.6) 07/02/23 05:33 Lymph # (Auto) 2.3 10^3/uL (1.5-3.5) 07/02/23 05:33 Bay # (Auto) 0.5 10^3/uL (0.0-1.0) 07/02/23 05:33 Eos # (Auto) 0.2 10^3/uL (0.0-0.7) 07/02/23 05:33 Baso # (Auto) 0.1 10^3/uL (0.0-0.1) 07/02/23 05:33 Absolute Nucleated RBC 0.00 x10^3/uL 07/02/23 05:33 Nucleated RBC % 0.0 /100WBC 07/02/23 05:33 Manual Slide Review Indicated 06/22/23 07:27 WBC Morphology NORMAL APPEARANCE (NORMAL) 06/13/23 05:25 Platelet Estimate NORMAL (130-450,000) (NORMAL) 06/22/23 07:27 Platelet Morphology NORMAL APPEARANCE (NORMAL) 06/22/23 07:27 RBC Morph Micro Appear 1+ HYPOCHROMASIA (NORMAL) 06/22/23 07:27 Bld Gas Analysis Time 0415 06/19/23 04:05 Sample Site RIGHT RADIAL 06/19/23 04:05 ABG pH 7.30 (7.35-7.45) L 06/19/23 04:05 ABG pCO2 87 mmHg (34-45) H* 06/19/23 04:05 ABG pO2 70 mmHg (80-100) L 06/19/23 04:05 ABG HCO3 42.1 mmol/L (22.0-26.0) H 06/19/23 04:05 ABG Total CO2 44.8 MMOL/L (21.0-29.0) H* 06/19/23 04:05 ABG O2 Saturation 92 % (94-98) L 06/19/23 04:05 ABG Base Excess 12.4 mmol/L (-2.0-3.0) H 06/19/23 04:05 Davie Test POSITIVE 06/19/23 04:05 VBG pH 7.348 (7.31-7.41) 06/18/23 05:47 Ionized Calcium 1.29 mmol/L (1.15-1.33) 06/18/23 05:47 Respiration Rate 16 b/min 06/14/23 15:30 O2 Delivery Device NON REBREATHER MASK 06/19/23 04:05 O2 Liters/Min 15.00 LPM 06/19/23 04:05 Vent Mode SYNCHRONOUS/TIMES 06/14/23 15:30 FiO2 50.00 06/14/23 15:30 EPAP 6 cmH2O 06/14/23 15:30 IPAP 14 cmH2O 06/14/23 15:30 Sodium 143 mmol/L (135-145) 06/25/23 05:06 Potassium 4.0 mmol/L (3.5-4.5) 06/25/23 05:06 Chloride 98 mmol/L (101-111) L 06/25/23 05:06 Carbon Dioxide 40 mmol/L (21-32) H* 06/25/23 05:06 Anion Gap 5.0 (6-13) L 06/25/23 05:06 BUN 9 mg/dL (6-20) 06/25/23 05:06 Creatinine 0.5 mg/dL (0.6-1.3) L 06/25/23 05:06 Estimated GFR (MDRD) 129 (>89) 06/25/23 05:06 Glucose 185 mg/dL (74-104) H 06/25/23 05:06 POC Whole Bld Glucose 167 mg/dL (70 - 100) H 07/06/23 11:06 Estimat Average Glucose 226 mg/dL (70-100) H 06/10/23 06:12 Hemoglobin A1c % 9.5 % (4.27-6.07) H 06/10/23 06:12 Calcium 10.5 mg/dL (8.5-10.3) H 06/25/23 05:06 Phosphorus 3.3 mg/dL (2.5-5.0) 06/18/23 05:47 Magnesium 1.7 mg/dL (1.7-2.3) 06/25/23 05:06 Total Bilirubin 0.9 mg/dL (0.2-1.0) 06/09/23 09:53 AST 13 IU/L (10-42) 06/09/23 09:53 ALT 10 IU/L (10-60) 06/09/23 09:53 Alkaline Phosphatase 76 IU/L (42-121) 06/09/23 09:53 Troponin I High Sens 36.4 ng/L (2.3-14.8) H* 06/11/23 11:31 B-Natriuretic Peptide 60 pg/mL (5-100) 06/20/23 06:06 Total Protein 6.4 g/dL (6.4-8.9) 06/09/23 09:53 Albumin 3.9 g/dL (3.2-5.5) 06/09/23 09:53 Globulin 2.5 g/dL (2.1-4.2) 06/09/23 09:53 Albumin/Globulin Ratio 1.6 (1.0-2.2) 06/09/23 09:53 TSH 1.74 uIU/mL (0.34-5.60) 06/10/23 06:12 Urine Color DARK YELLOW 06/09/23 12:25 Urine Clarity CLOUDY (CLEAR) 06/09/23 12:25 Urine pH 6.0 PH (5.0-7.5) 06/09/23 12:25 Ur Specific [place] 1.025 (1.002-1.030) 06/09/23 12:25 Urine Protein TRACE mg/dL (NEGATIVE) 06/09/23 12:25 Urine Glucose (UA) 250 mg/dL (NEGATIVE) H 06/09/23 12:25 Urine Ketones NEGATIVE mg/dL (NEGATIVE) 06/09/23 12:25 Urine Occult Blood LARGE (NEGATIVE) H 06/09/23 12:25 Urine Nitrite NEGATIVE (NEGATIVE) 06/09/23 12:25 Urine Bilirubin NEGATIVE (NEGATIVE) 06/09/23 12:25 Urine Urobilinogen 0.2 (NORMAL) E.U./dL (NORMAL) 06/09/23 12:25 Ur Leukocyte Esterase NEGATIVE (NEGATIVE) 06/09/23 12:25 Urine RBC TNTC /HPF (0-5) H 06/09/23 12:25 Urine WBC 4-5 /HPF (0-5) 06/09/23 12:25 Ur Squamous Epith Cells MOD Squamous (<= Few) H 06/09/23 12:25 Urine Crystals >50 Calcium Oxalate /LPF 06/09/23 12:25 Urine Bacteria Moderate /HPF (None Seen) H 06/09/23 12:25 Urine Mucus Few Strands 06/09/23 12:25 Ur Microscopic Review INDICATED 06/09/23 12:25 Urine Culture Comments NOT INDICATED 06/09/23 12:25 Nasal Adenovirus (PCR) NOT DETECTED 06/09/23 09:50 Nasal B. parapertussis DNA (PCR) NOT DETECTED 06/09/23 09:50 Nasal Coronavir 229E PCR NOT DETECTED 06/09/23 09:50 Nasal Coronavir HKU1 PCR NOT DETECTED 06/09/23 09:50 Nasal Coronavir NL63 PCR NOT DETECTED 06/09/23 09:50 Nasal Coronavir OC43 PCR NOT DETECTED 06/09/23 09:50 Nasal Enterovir/Rhinovir PCR NOT DETECTED 06/09/23 09:50 Nasal Influenza B PCR NOT DETECTED 06/09/23 09:50 Nasal Influenza A PCR NOT DETECTED 06/09/23 09:50 Nasal Parainfluen 1 PCR NOT DETECTED 06/09/23 09:50 Nasal Parainfluen 2 PCR NOT DETECTED 06/09/23 09:50 Nasal Parainfluen 3 PCR NOT DETECTED 06/09/23 09:50 Nasal Parainfluen 4 PCR NOT DETECTED 06/09/23 09:50 Nasal RSV (PCR) NOT DETECTED 06/09/23 09:50 Nasal Screen MRSA (PCR) NEGATIVE (NEGATIVE) 06/11/23 05:00 Nasal B.pertussis DNA PCR NOT DETECTED 06/09/23 09:50 Nasal C.pneumoniae (PCR) NOT DETECTED 06/09/23 09:50 Amish Human Metapneumo PCR NOT DETECTED 06/09/23 09:50 Nasal M.pneumoniae (PCR) NOT DETECTED 06/09/23 09:50 Nasal SARS-CoV-2 (PCR) NOT DETECTED 06/09/23 09:50 Last Dose Date UNKNOWN 06/13/23 05:25 Last Dose Time UNKNOWN 06/13/23 05:25 Vancomycin Peak 43.7 ug/mL (20.0-40.0) H 06/11/23 21:00 Vancomycin Trough 21.6 ug/mL 06/13/23 05:25 Sepsis Event Note (H) - Evaluation Current Stage of Sepsis: Ruled out Current Medications - Current Medications Current Medications: Active Medications Generic Name Dose Route Start Last Admin Trade Name Freq PRN Reason Stop Dose Admin Acetaminophen 650 mg 06/09/23 13:50 07/04/23 12:26 Acetaminophen 325 Mg Tablet PO 650 mg Q4HR PRN Administration Pain 1 to 4, or Fever Carboxymethylcellulose 1 drops 06/27/23 14:00 06/28/23 14:42 Carboxymethylcellulose Ophth Drops EACHEYE 1 drops PRN PRN Administration Dry Eye Famotidine 20 mg 06/18/23 21:00 07/06/23 08:20 Famotidine 20 Mg Tablet PO 20 mg BID PEREZ Administration Gabapentin 300 mg 06/15/23 02:25 07/05/23 21:37 Gabapentin 300 Mg Capsule PO 300 mg QPM PEREZ Administration Guaifenesin 600 mg 06/12/23 14:00 07/06/23 08:20 Guaifenesin 600 Mg Tablet PO 600 mg BID PEREZ Administration Insulin Glargine-yfgn 20 unit 06/15/23 21:00 07/05/23 21:38 Insulin Glargine-Yfgn 300 Unit/3 Ml Pen SUBQ 20 unit QPM PEREZ Administration Insulin Glargine-yfgn 17 unit 07/05/23 09:00 07/06/23 08:21 Insulin Glargine-Yfgn 300 Unit/3 Ml Pen SUBQ 17 unit DAILY PEREZ Administration Insulin Human Lispro 3 - 11 unit 06/27/23 17:00 07/06/23 08:20 Insulin Lispro 300 Unit/3 Ml Pen SUBQ Not Given 0800,1200,1700,2100 [facility] Protocol Insulin Human Lispro 5 unit 06/29/23 12:00 07/06/23 08:21 Insulin Lispro 300 Unit/3 Ml Pen SUBQ 5 unit TIDWM [facility] Administration Protocol Magnesium Oxide 400 mg 06/17/23 09:00 07/06/23 08:20 Magnesium Oxide 400 Mg Tablet PO 400 mg DAILYWM PEREZ Administration Metoprolol Tartrate 12.5 mg 07/06/23 21:00 Metoprolol Tartrate 25 Mg Tablet PO BID [facility] Multivitamins/Minerals 1 tab 06/22/23 14:00 07/06/23 08:20 Multivitamin W/Minerals Tablet PO 1 tab DAILYWM [facility] Administration Trazodone HCl 25 mg 06/16/23 21:00 07/05/23 21:36 Trazodone 50 Mg Tablet PO 25 mg QPM PEREZ Administration Gabapentin [Neurontin] 300 mg PO DAILY 06/09/23 Insulin Glargine,Hum.rec.anlog [Dannagldorita Victoria U-100] 52 units SUBQ HS 06/09/23 Liraglutide [Victoza 2-Pal] 1.2 mg SUBQ DAILY 06/09/23 Losartan Potassium 12.5 mg PO DAILY 06/09/23 Simvastatin [Zocor] 10 mg PO DAILY 06/09/23 Cholecalciferol [Vitamin D3] 400 unit PO DAILY 06/10/23 Tocopheryl [Vitamin E] 400 unit PO DAILY 06/10/23 Vitamin B Complex 1 each PO DAILY 06/10/23
--- NOTE | 2023-07-06 12:37 | Discharge Plan ---
"Discharge Plan for SNF / [facility] - Discharge Plan And Transition Orders Problem Reviewed?: Yes Disposition: 03 SNF DC/Xfer Condition: Stable Allergies and Adverse Reactions: Allergies Allergy/AdvReac Type Severity Reaction Status Date / Time amoxicillin AdvReac Rash Verified 06/09/23 17:34 Sulfa (Sulfonamide AdvReac Hives Verified 06/09/23 17:34 Antibiotics) - SNF / [facility] Transition Orders Discharge Diagnosis: Acute hypoxic respiratory failure --Chronically on 3.5-5L of oxygen. Medicare Certification Statement: I certify that Post Hospital [facility] care is medically necessary on a continuing basis for any of the conditions for which she/he is receiving care during hospitalization. Notify PCP of admission and forward orders to primary provider for signature. Weight on admission and: Weekly Call PCP immediately if weight increases by: 5 kg Other Notification Orders: Call PCP immediately if patient develops dyspnea, chest pain/tightness or edema. House Bowel Program: Yes Additional Bowel Program Orders: If no BM after 2 days, nurse may give M.O.M. 30ml PO PRN and/or ducolax Supp 1 HI and/or INEZ 250mg P.O., and/or senna 1-2 tabs PO. On day 3 nurse may give repeat above order until residents constipation is resolved. Annual Influenza Vaccine (between Apr 24 and November 21): Yes Two-step PPD per [facility] [phone] or approved exception documents: Yes Oxygen Orders: Titrate to maintain oxygen spO2 above 90% Medication Orders: PLEASE REFER TO THE DISCHARGE MEDICATION LIST. Insulin Orders?: Yes - Medications New Prescriptions: traZODone [Desyrel] 25 mg PO QPM #30 tab Insulin Lispro [Humalog Kwikpen U-100] 5 unit SUBQ TIDWM #5 ml Insulin Lispro [Humalog Kwikpen U-100] 3 - 11 unit SUBQ 0800,1200,1700,2100 #5 ml Metoprolol Tartrate [Lopressor] 12.5 mg PO BID #60 tab Insulin Glargine-Yfgn [Semglee] 17 unit SUBQ DAILY 30 Days #5.1 ml Insulin Glargine-Yfgn [Semglee] 20 unit SUBQ QPM 30 Days #6 ml - Diet Type: No added sugar Texture: Regular May have monthly special meal: Yes - Therapies | Activity Therapy: Evaluation | Treat if indicated: PT, OT Rehabilitation Potential: Maximize functional status, Maintain present ADL Functional Activity: Wt Bearing as Tolerated Weight Bearing: Full Weight Follow Up: Follow-up with PCP in 3-5 days."
[2023-07-06] MEDS: traZODone 50 MG TABLET PO SCH (22:10)
[2023-07-06] MEDS: GABAPENTIN 300 MG CAPSULE PO SCH (22:10)
[2023-07-07] MEDS: INSULIN LISPRO 300 UNIT/3 ML PEN SUBQ SCH ×2 (08:15)
[2023-07-07] MEDS: INSULIN GLARGINE-YFGN 300 UNIT/3 ML PEN SUBQ SCH (08:17)
[2023-07-07] MEDS: MAGNESIUM OXIDE 400 MG TABLET PO SCH (08:18)
[2023-07-07] MEDS: METOPROLOL TARTRATE 25 MG TABLET PO SCH (08:18)
[2023-07-07] MEDS: guaiFENesin 600 MG TABLET PO SCH (08:18)
[2023-07-07] MEDS: FAMOTIDINE 20 MG TABLET PO SCH (08:18)
[2023-07-07] MEDS: MULTIVITAMIN W/MINERALS TABLET PO SCH (08:18)
--- NOTE | 2023-07-07 08:20 | DISCHARGE SUMMARY ---
Discharge Summary Admit Date: 06/09/23 Discharge Date: 07/07/23 Discharging Provider: Dr Ashely Foster Primary Care Provider: ROSSI Lenz Code Status: Do Not Attempt Resuscitation Condition at Discharge: Stable Discharge Disposition: 03 SNF DC/Xfer - HPI History of Present Illness: This is a 52-year-old female with a history of insulin-dependent diabetes and myotonic dystrophy. She says her muscle weakness due to the muscular dystrophy started when she was in her 40s and she is on disability for it. There is a family history of myotonic dystrophy in her older sister and father. Her 5 years ago and she moved in with her mother. Today while walking at home the patient's "legs gave out" and she dropped to the ground, but says this happens often because of her muscular dystrophy and weakness. Today the difference was that she was too weak to get up. Her mother also tried and they could not raise her. An ambulance was called. The trash truck driver pointed out that she had significant leg edema (which the patient first said she did not notice but then when I was speaking with her she said she had noticed having leg edema). Her O2 saturation was 82% by EMS. She was brought to the ER. There she had an O2 saturation on room air of 85% and was put on 3 L suppl O2. The work-up shows that she has cardiomegaly and pulmonary edema and anasarca of the legs up to the thighs. Her EKG shows A-fib and she also has LBBB, which may be new findings for her. There are no old EKGs here for comparison, however she denies ever being told she had Afib. She received IV Lasix ib=n the ER. Her BNP is 99, and BUN/creat are normal. The ED provider then spoke to me about this patient. She will be admitted to manage pulmonary edema with anasarca and hypoxemia in a patient with myotonic dystrophy and generalized weakness. - HOSPITAL COURSE Hospital Course: (1) Acute respiratory failure with hypoxia and hypercarbia She was admitted to the ICU and managed with CPAP. Slowly her CPAP was able to be chaged to suppl O2 via oxymask, then HiFlow O2 and finally O2 via nasal cannula. Her oxygen needs fluctuated between 3.5-5 L via n.c., to maintain oxygen saturation over 92% and she eventually did not require even nightly CPAP. She was able to be discharged to a SNF for rehab. Her hospital stay was prolonged due to awaiting authorization for a SNF stay. (2) CO2 narcosis Mental status fluctuated depending on the status of CO2 retention. Evenings and mornings were most challenging, as she was removing her suppl oxygen (especially when on CPAP and on oxy mask), causing desaturation and turning cyanotic and somnolent. If patient is fully awake, she can feed herself, can carry on a conversation and work with PT and OT. She is very sensitive to sleeping meds, Benadryl, and Benzos, which added to hypersomnolence. (3) Myotonic dystrophy She has weakness even in her speech and marked generalized weakness. We also suspect she has significant respiratory muscle weakness from her Myotonic Dystrophy. She started working with PT and OT and was discharged to a SNF for further rehab. Due to poor cognitive function and poor insight of her condition, an Advanced Care Plan was done with her mother and a POLST form completed. Patient is a DNR/DNI. (4) New onset a-fib An Echo was done that showed normal LVEF of 55%, mildly dilated RV, and PA pressure normal at 32 mmHg. Metoprolol was started and continues for rate control. She is not a candidate for anticoagulant due to poor cognitive function and poor insight of her condition, and risk of falls and bleeding. (5) DM type 2 (diabetes mellitus, type 2) She was kept on a diabetic diet, insulin long-acting, short-acting with each meal, plus insulin sliding scale. (6) Pulmonary edema She presented with fluid overload. This resolved on diuretics. - ALLERGIES Allergies/Adverse Reactions: Allergies Allergy/AdvReac Type Severity Reaction Status Date / Time amoxicillin AdvReac Rash Verified 06/09/23 17:34 Sulfa (Sulfonamide AdvReac Hives Verified 06/09/23 17:34 Antibiotics) - MEDICATIONS Home Medications: Ambulatory Orders Medication Instructions Recorded Confirmed Gabapentin [Neurontin] 300 mg PO DAILY 06/09/23 06/09/23 Simvastatin [Zocor] 10 mg PO DAILY 06/09/23 06/09/23 Tocopheryl [Vitamin E] 400 unit PO DAILY 06/10/23 06/10/23 Vitamin B Complex 1 each PO DAILY 06/10/23 06/10/23 Insulin Glargine-Yfgn [Semglee] 17 unit SUBQ DAILY 30 Days #5.1 ml 07/06/23 Insulin Glargine-Yfgn [Semglee] 20 unit SUBQ QPM 30 Days #6 ml 07/06/23 Insulin Lispro [Humalog Kwikpen 3 - 11 unit SUBQ 07/06/23 U-100] 0800,1200,1700,2100 #5 ml Insulin Lispro [Humalog Kwikpen 5 unit SUBQ TIDWM #5 ml 07/06/23 U-100] Metoprolol Tartrate [Lopressor] 12.5 mg PO BID #60 tab 07/06/23 traZODone [Desyrel] 25 mg PO QPM #30 tab 07/06/23 - PHYSICAL EXAM AT DISCHARGE General Appearance: positive: No acute distress, Alert, Other (Dysmorphic faciies.) Eyes Bilateral: positive: Normal inspection, EOMI, No lid inflammation ENT: positive: ENT inspection nml, No signs of dehydration Neck: positive: Nml inspection, No JVD Respiratory: positive: No respiratory distress, Breath sounds nml Cardiovascular: positive: No murmur, Irregularly irregular Abdomen: positive: Non-tender, Nml bowel sounds, Other (Obese) Skin: positive: Warm, Dry Extremities: positive: Non-tender, No pedal edema Neurologic/Psychiatric: positive: Oriented x3, Other (Has generalized weakness and a weak, soft voice) - LABS Result Diagrams: 07/02/23 05:33 06/25/23 05:06 - DIAGNOSTIC IMAGING Diagnostic Imaging Results: Final report reviewed - SEPSIS Current Stage of Sepsis: Ruled out - FOLLOW UP Follow Up: See PCP after discharge from SNF. - TIME SPENT Time Spent in Discharge (Minutes): 50
[2023-07-07 09:52] VITALS: BP 102/56; O2SAT 93
== END 2023-07-07 09:47 | DRG 189 ==
LOC: EDUNIT# → ED 09:07 → MS2 13:50 → ICU 06-11 00:41 → MS2 06-17 14:14
PROVIDERS: ADMIT Internal Medicine; ATTEND Internal Medicine
PROC: 02HV33Z Insertion of Infusion Device into Superior Vena Cava, Percutaneous Approach (ICD-10-PCS; principal; 2023-06-11)
DX: J96.02 Acute respiratory failure with hypercapnia (principal); J90 Pleural effusion, not elsewhere classified; I50.30 Unspecified diastolic (congestive) heart failure; J96.01 Acute respiratory failure with hypoxia; J81.1 Chronic pulmonary edema; G71.11 Myotonic muscular dystrophy; R53.1 Weakness; W18.30XA Fall on same level, unspecified, initial encounter; G71.00 Muscular dystrophy, unspecified; Z91.81 History of falling; R22.43 Localized swelling, mass and lump, lower limb, bilateral; R79.89 Other specified abnormal findings of blood chemistry; Y93.01 Activity, walking, marching and hiking; I48.91 Unspecified atrial fibrillation; E11.9 Type 2 diabetes mellitus without complications; Z79.4 Long term (current) use of insulin; I44.7 Left bundle-branch block, unspecified; I51.7 Cardiomegaly; Z87.891 Personal history of nicotine dependence; E66.9 Obesity, unspecified; Z68.37 Body mass index [BMI] 37.0-37.9, adult; F41.9 Anxiety disorder, unspecified; R41.89 Other symptoms and signs involving cognitive functions and awareness; I95.9 Hypotension, unspecified; G47.30 Sleep apnea, unspecified; R00.1 Bradycardia, unspecified; R25.1 Tremor, unspecified
CPT/HCPCS: 36415; 36600; 71045; 71275; 80048; 80053; 80202; 81001; 82330; 82803; 83036; 83735; 83880; 84100; 84132; 84443; 84484; 85025; 85027; 87040; 87150; 87633; 93005; 93306; 93970; 94660; 96374; 97110; 97116; 97162; 97166; 97530; 97535; 99284; 99285; A9270; J0131; J1650; J1815; J2060; J3370; J8499; 81003; 87086

== ENCOUNTER 2023-08-22 17:20 | Outpatient (CLI) | payer MEDICARE | END 2023-08-22 17:21 | disposition critical access hospital (66) | LOC: EMS 17:20 | DX: R53.1 Weakness (principal); R09.02 Hypoxemia; R00.0 Tachycardia, unspecified; I95.9 Hypotension, unspecified; R06.82 Tachypnea, not elsewhere classified; I48.91 Unspecified atrial fibrillation; I44.7 Left bundle-branch block, unspecified; Z99.81 Dependence on supplemental oxygen; M79.602 Pain in left arm; M79.601 Pain in right arm; M25.572 Pain in left ankle and joints of left foot; M25.571 Pain in right ankle and joints of right foot | CPT/HCPCS: A0425; A0427 ==

== ENCOUNTER 2023-08-22 17:55 | Inpatient (IN) | payer MEDICARE ==
[2023-08-22 18:27] LABS: BASOPHILS % (AUTO) 0.2 %; HCT - HEMATOCRIT 43.6 % (37.0-47.0); HGB - HEMOGLOBIN 12.4 g/dL (12.0-16.0); LYMPHOCYTES # (AUTO) 1.4 10^3/uL (1.5-3.5); LYMPHOCYTES % (AUTO) 34.5 %; MEAN CORPUSCULAR HEMOGLOBIN 25.3 pg (27.0-31.0); MEAN CORPUSCULAR HGB CONC 28.4 g/dL (32.0-36.0); MEAN CORPUSCULAR VOLUME 88.8 fL (81.0-99.0); MONOCYTES # (AUTO) 0.4 10^3/uL (0.0-1.0); MONOCYTES % (AUTO) 9.4 %; NEUTROPHILS # (AUTO) 2.3 10^3/uL (1.5-6.6); NEUTROPHILS % (AUTO) 55.4 %; PLT - PLATELET COUNT 113 10^3/uL (130-450); RED BLOOD COUNT 4.91 10^6/uL (4.20-5.40); RED CELL DISTRIBUTION WIDTH 17.1 % (12.0-15.0); WHITE BLOOD COUNT 4.2 x10^3/uL (4.8-10.8)
[2023-08-22 18:41] LABS: ALBUMIN 3.4 g/dL (3.2-5.5); ALBUMIN/GLOBULIN RATIO 1.2 (1.0-2.2); BILIRUBIN,TOTAL 0.6 mg/dL (0.2-1.0); CREATININE 0.5 mg/dL (0.6-1.3); POTASSIUM 3.7 mmol/L (3.5-4.5); TOTAL PROTEIN 6.2 g/dL (6.4-8.9)
--- NOTE | 2023-08-22 18:43 | XRAY Report ---
PROCEDURE: Chest 1V INDICATIONS: chest pain TECHNIQUE: One view of the chest was acquired. COMPARISON: 06/19/2023 FINDINGS: Surgical changes and devices: None. Lungs and pleura: Moderate diffuse lung disease, particularly in the left mid lung. Low lung volumes . Possible small effusions. Mediastinum: Normal heart size Bones and chest wall: Degenerative changes. IMPRESSION: Moderate diffuse lung disease representing infection and/or edema, particularly in the left mid regio n. Possible small effusions. Low lung volumes. Consider future imaging surveillance to assess for res olution. Reviewed by: Nick Milligan MD on 08/22/2023 6:41 PM PST Approved by: Nick Milligan MD on 08/22/2023 6:41 PM PST Station ID: [id number]
[2023-08-22 18:45] LABS: PLATELET ESTIMATE, MANUAL DECREASED (<130,000) (NORMAL); PLATELET MORPHOLOGY NORMAL APPEARANCE (NORMAL); SLIDE REVIEW? Indicated
[2023-08-22 18:50] LABS: TROPONIN I HIGH SENSITIVITY 59.2 ng/L (2.3-14.8)
--- NOTE | 2023-08-22 19:13 | ED Physician Documentation ---
History of Present Illness - Stated complaint Stated Complaint: WEAKNESS/AMS - Chief complaint Chief Complaint: Neuro - History obtained from History obtained from: Patient, Family - Additonal information Additional information: BIBA. Patient's PMHx includes \IDDM, myotonic dystrophy. She was admitted to [facility] 06/09/23 for acute respiratory failure with hypoxia and hypercarbia, CO2 narcosis, new onset a-fib, and pulmonary edema. She was d/c 07/07/23 to SNF and was d/c home from SNF approximately 2 weeks ago. Family notes that patient has had decreasing PO intake, increasing lethargy, decreasing activity, and episodic confusion over past week. They note that patient has been missing doses of her medications including her insulin, which they say is new; family say patient had always been able to carry out her routine medication dosing before this past week. They also say she had been able to ambulate with a cane before going inpatient, but was only able to walk with a walker and assistance upon getting out of SNF and last few days has been mostly bedbound due to generalized weakness. Review of Systems Constitutional: reports: Fatigue. denies: Fever, Chills, Sweats Cardiac: reports: Reviewed and negative Respiratory: reports: Dyspnea (mild), Cough (mild) GI: reports: Reviewed and negative Neurologic: reports: Generalized weakness, Altered mental status. denies: Headache PD PAST MEDICAL HISTORY - Past Medical History Past Medical History: Yes Cardiovascular: None Respiratory: None Neuro: Other Endocrine/Autoimmune: Type 2 diabetes GI: None PERFORMANCE MANAGEMENT CONSULTANT: None : None HEENT: None Psych: None Musculoskeletal: Other Derm: None - Past Surgical History Past Surgical History: No - Present Medications Home Medications: Ambulatory Orders Medication Instructions Recorded Confirmed Gabapentin [Neurontin] 300 mg PO DAILY 06/09/23 06/09/23 Simvastatin [Zocor] 10 mg PO DAILY 06/09/23 08/23/23 Tocopheryl [Vitamin E] 400 unit PO DAILY 06/10/23 08/23/23 Vitamin B Complex 1 each PO DAILY 06/10/23 08/23/23 Insulin Glargine-Yfgn [Semglee] 17 unit SUBQ DAILY 30 Days #5.1 ml 07/06/23 Insulin Glargine-Yfgn [Semglee] 20 unit SUBQ QPM 30 Days #6 ml 07/06/23 Insulin Lispro [Humalog Kwikpen 3 - 11 unit SUBQ 07/06/23 U-100] 0800,1200,1700,2100 #5 ml Insulin Lispro [Humalog Kwikpen 5 unit SUBQ TIDWM #5 ml 07/06/23 U-100] Gabapentin [Neurontin] 300 mg PO DAILY 08/23/23 08/23/23 Liraglutide [Victoza 2-Pal] 1.2 mg SUBQ DAILY PM 08/23/23 08/23/23 Losartan Potassium 12.5 mg PO DAILY 08/23/23 08/23/23 - Allergies Allergies/Adverse Reactions: Allergies Allergy/AdvReac Type Severity Reaction Status Date / Time amoxicillin AdvReac Rash Verified 08/22/23 18:03 Sulfa (Sulfonamide AdvReac Hives Verified 08/22/23 18:03 Antibiotics) - Social History Does the pt smoke?: No Smoking Status: Never smoker Does the pt drink ETOH?: No Does the pt have substance abuse?: No - Immunizations Immunizations are current?: Yes - POLST Patient has POLST: Yes PD ED PE NORMAL - Vitals Vital signs reviewed: Yes - General General: Other (awake, alert, answers slowly and quietly, seems unsure of answers; oriented x 2 (says year is 2024, and sounds like she is guessing)) - HEENT HEENT: PERRL, Other (parched mucous membranes) - Neck Neck: Supple, no meningeal sign - Cardiac Cardiac: RRR, No murmur - Respiratory Respiratory: No respiratory distress, Other (bilateral course breath sounds lower lung calloway) - Derm Derm: Normal color, Warm and dry - Neuro Neuro: No motor deficit (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, 4/5 bilateral plantarflexion) Eye Opening: Spontaneous Motor: Obeys Commands Verbal: Confused GCS Score: 14 Results - Vitals Vitals: Vital Signs - 24 hr 08/22/23 08/22/23 08/22/23 18:03 18:11 19:08 Temperature 36.0 C L Heart Rate 99 87 107 H Respiratory 18 18 17 Rate Blood Pressure 92/51 L 97/59 L 95/64 O2 Saturation 90 L 95 94 If not protocol 4 : Oxygen Flow, liters/minute 08/22/23 08/22/23 08/22/23 19:25 21:02 21:30 Temperature 36.5 C Heart Rate 99 99 107 H Respiratory 25 H 14 22 Rate Blood Pressure 101/70 85/73 L 83/61 L O2 Saturation 95 95 98 If not protocol 4 3 3 : Oxygen Flow, liters/minute 08/22/23 08/22/23 08/22/23 21:56 22:47 23:00 Temperature 36.8 C 36.8 C Heart Rate 80 103 H Respiratory 22 23 23 Rate Blood Pressure 92/56 L 93/43 L 90/55 L O2 Saturation 98 95 99 If not protocol 3 3 : Oxygen Flow, liters/minute 08/23/23 08/23/23 08/23/23 00:00 00:30 01:00 Temperature Heart Rate 86 89 102 H Respiratory 23 22 33 H Rate Blood Pressure 90/52 L 109/58 L 109/58 L O2 Saturation 94 98 92 If not protocol 3 3 3 : Oxygen Flow, liters/minute 08/23/23 01:30 Temperature Heart Rate 90 Respiratory 20 Rate Blood Pressure O2 Saturation 98 If not protocol 2 : Oxygen Flow, liters/minute Oxygen O2 Source Nasal cannula - EKG (time done) No standard instances EKG releavant findings:: EKG personally interpreted by author of this note. Relevant findings are: Rate: Rate (enter#) (85) Rhythm: Atrial fibrillation Lena: LAD Intervals: LBBB Other comments: Other comments (does not meet any Sgarbossa criteria) - Labs Labs: Laboratory Tests 08/22/23 08/22/23 08/22/23 18:20 18:20 18:20 WBC 4.2 L RBC 4.91 Hgb 12.4 Hct 43.6 MCV 88.8 MCH 25.3 L MCHC 28.4 L RDW 17.1 H Plt Count 113 L MPV 10.0 Neut # (Auto) 2.3 Lymph # (Auto) 1.4 L [place] # (Auto) 0.4 Eos # (Auto) 0.0 Baso # (Auto) 0.0 Absolute Nucleated RBC 0.00 Nucleated RBC % 0.0 Manual Slide Review Indicated Platelet Estimate DECREASED (<130,000) Platelet Morphology NORMAL APPEARANCE RBC Morph Micro Appear 1+ HYPOCHROMASIA Sodium 142 Potassium 3.7 Chloride 101 Carbon Dioxide 36 H Anion Gap 5.0 L BUN 7 Creatinine 0.5 L Estimated GFR (MDRD) 129 Glucose 129 H Lactic Acid Calcium 9.0 Total Bilirubin 0.6 AST 29 ALT 11 Alkaline Phosphatase 61 Troponin I High Sens 59.2 H* B-Natriuretic Peptide 62 Total Protein 6.2 L Albumin 3.4 Globulin 2.8 Albumin/Globulin Ratio 1.2 Lipase 38 Urine Color Urine Clarity Urine pH Ur Specific [place] Urine Protein Urine Glucose (UA) Urine Ketones Urine Occult Blood Urine Nitrite Urine Bilirubin Urine Urobilinogen Ur Leukocyte Esterase Ur Microscopic Review Urine Culture Comments Nasal Adenovirus (PCR) Nasal B. parapertussis DNA (PCR) Nasal Coronavir 229E PCR Nasal Coronavir HKU1 PCR Nasal Coronavir NL63 PCR Nasal Coronavir OC43 PCR Nasal Enterovir/Rhinovir PCR Nasal Influenza B PCR Nasal Influenza A PCR Nasal Parainfluen 1 PCR Nasal Parainfluen 2 PCR Nasal Parainfluen 3 PCR Nasal Parainfluen 4 PCR Nasal RSV (PCR) Nasal B.pertussis DNA PCR Nasal C.pneumoniae (PCR) Amish Human Metapneumo PCR Nasal M.pneumoniae (PCR) Nasal SARS-CoV-2 (PCR) 08/22/23 08/22/23 08/22/23 18:35 21:19 21:50 WBC RBC Hgb Hct MCV MCH MCHC RDW Plt Count MPV Neut # (Auto) Lymph # (Auto) [place] # (Auto) Eos # (Auto) Baso # (Auto) Absolute Nucleated RBC Nucleated RBC % Manual Slide Review Platelet Estimate Platelet Morphology RBC Morph Micro Appear Sodium Potassium Chloride Carbon Dioxide Anion Gap BUN Creatinine Estimated GFR (MDRD) Glucose Lactic Acid 0.7 Calcium Total Bilirubin AST ALT Alkaline Phosphatase Troponin I High Sens 58.3 H* B-Natriuretic Peptide Total Protein Albumin Globulin Albumin/Globulin Ratio Lipase Urine Color Urine Clarity Urine pH Ur Specific [place] Urine Protein Urine Glucose (UA) Urine Ketones Urine Occult Blood Urine Nitrite Urine Bilirubin Urine Urobilinogen Ur Leukocyte Esterase Ur Microscopic Review Urine Culture Comments Nasal Adenovirus (PCR) NOT DETECTED Nasal B. parapertussis DNA (PCR) NOT DETECTED Nasal Coronavir 229E PCR NOT DETECTED Nasal Coronavir HKU1 PCR NOT DETECTED Nasal Coronavir NL63 PCR NOT DETECTED Nasal Coronavir OC43 PCR NOT DETECTED Nasal Enterovir/Rhinovir PCR NOT DETECTED Nasal Influenza B PCR NOT DETECTED Nasal Influenza A PCR NOT DETECTED Nasal Parainfluen 1 PCR NOT DETECTED Nasal Parainfluen 2 PCR NOT DETECTED Nasal Parainfluen 3 PCR NOT DETECTED Nasal Parainfluen 4 PCR NOT DETECTED Nasal RSV (PCR) NOT DETECTED Nasal B.pertussis DNA PCR NOT DETECTED Nasal C.pneumoniae (PCR) NOT DETECTED Amish Human Metapneumo PCR NOT DETECTED Nasal M.pneumoniae (PCR) NOT DETECTED Nasal SARS-CoV-2 (PCR) DETECTED A 08/22/23 23:03 WBC RBC Hgb Hct MCV MCH MCHC RDW Plt Count MPV Neut # (Auto) Lymph # (Auto) [place] # (Auto) Eos # (Auto) Baso # (Auto) Absolute Nucleated RBC Nucleated RBC % Manual Slide Review Platelet Estimate Platelet Morphology RBC Morph Micro Appear Sodium Potassium Chloride Carbon Dioxide Anion Gap BUN Creatinine Estimated GFR (MDRD) Glucose Lactic Acid Calcium Total Bilirubin AST ALT Alkaline Phosphatase Troponin I High Sens B-Natriuretic Peptide Total Protein Albumin Globulin Albumin/Globulin Ratio Lipase Urine Color DARK YELLOW Urine Clarity CLEAR Urine pH 6.0 Ur Specific [place] 1.020 Urine Protein TRACE Urine Glucose (UA) NEGATIVE Urine Ketones NEGATIVE Urine Occult Blood NEGATIVE Urine Nitrite NEGATIVE Urine Bilirubin NEGATIVE Urine Urobilinogen 1 (NORMAL) Ur Leukocyte Esterase NEGATIVE Ur Microscopic Review NOT INDICATED Urine Culture Comments NOT INDICATED Nasal Adenovirus (PCR) Nasal B. parapertussis DNA (PCR) Nasal Coronavir 229E PCR Nasal Coronavir HKU1 PCR Nasal Coronavir NL63 PCR Nasal Coronavir OC43 PCR Nasal Enterovir/Rhinovir PCR Nasal Influenza B PCR Nasal Influenza A PCR Nasal Parainfluen 1 PCR Nasal Parainfluen 2 PCR Nasal Parainfluen 3 PCR Nasal Parainfluen 4 PCR Nasal RSV (PCR) Nasal B.pertussis DNA PCR Nasal C.pneumoniae (PCR) Amish Human Metapneumo PCR Nasal M.pneumoniae (PCR) Nasal SARS-CoV-2 (PCR) - Rads (name of study) chest xray Relevant Findings:: Prelim report reviewed, See rad report CTH Relevant Findings:: Prelim report reviewed, See rad report PD Medical Decision Making - ED course Complexity details: reviewed old records, reviewed results, re-evaluated patient, considered differential, d/w patient, d/w family ED course: Mild leukopenia on CBC (4.2). Unremarkable ER abdominal panel. Lactate is normal. She does have an elevated high-sensitivity troponin (59.2) but a 2-hour repeat is 58.3. Chest x-ray shows moderate diffuse lung disease representing inf ection and/or edema, particularly in the left mid region. possible small effusions. Her respiratory PCR panel is positive for COVID. This patient already has a tenuous respiratory status, uses oxygen at home (3 L nasal cannula per minute). In the emergency department, her pulse ox is 90 to 93% with the 3 L nasal cannula supplement oxygen, but she becomes very short of breath, tachypneic, and having speak in 1-2 word sentences with any movement such as moving around in the bed. During her ED stay, she tries to get up out of the bed several times despite being told by myself and nursing staff that she needs to stay in the bed, as she is exhibiting generalized weakness and is clearly becoming quite dyspneic with simply moving around in the bed. COVID is certainly complicating the situation and at this point she would be inappropriate for d/c home. I spoke with telehealth and they agree with admission to [facility] hospitalist service. She is also noted to have soft blood pressures for most of ED stay, with most readings 90s SBP, occasional 80s. Departure - Departure Disposition: [facility] DC/Xfer Clinical Impression: Weakness, COVID-19 Condition: Stable Discharge Date/Time: 08/23/23 02:30
[2023-08-22] MEDS ORDERED: SODIUM CHLORIDE 0.9% 1,000 ML IV STA (19:57)
[2023-08-22] MEDS ORDERED: SODIUM CHLORIDE 0.9% 500 ML IV STA (21:21)
[2023-08-22 22:54] LABS: CORONAVIRUS 229E-RESP PCR NOT DETECTED; CORONAVIRUS HKU1-RESP PCR NOT DETECTED; CORONAVIRUS NL63-RESP PCR NOT DETECTED; CORONAVIRUS OC43-RESP PCR NOT DETECTED
[2023-08-22 22:55] LABS: B. PARAPERTUSSIS- RESP PCR PAN NOT DETECTED; B. PERTUSSIS- RESP PCR PANEL NOT DETECTED; C. PNEUMONIAE- RESP PCR PANEL NOT DETECTED; HUMAN METAPNEUMOVIRUS NOT DETECTED; INFLUENZA A- RESP PCR PANEL NOT DETECTED; INFLUENZA B - RESP PCR PANEL NOT DETECTED; M. PNEUMONIAE- RESP PCR PANEL NOT DETECTED; PARAINFLUENZA VIRUS 1 NOT DETECTED; PARAINFLUENZA VIRUS 2 NOT DETECTED; PARAINFLUENZA VIRUS 3 NOT DETECTED; PARAINFLUENZA VIRUS 4 NOT DETECTED; RHINOVIRUS/ENTEROVIRUS NOT DETECTED; RSV- RESP PCR PANEL NOT DETECTED; SARS-CoV-2 -RESP PCR PANEL DETECTED
[2023-08-22 23:12] LABS: GLUCOSE, URINE (UA) NEGATIVE (NEGATIVE); KETONES,URINE (UA) NEGATIVE (NEGATIVE); LEUKOCYTE ESTERASE, URINE NEGATIVE (NEGATIVE); NITRITE,URINE NEGATIVE (NEGATIVE); OCCULT BLOOD,URINE NEGATIVE (NEGATIVE); PROTEIN,URINE TRACE mg/dL (NEGATIVE); UROBILINOGEN,URINE 1 (NORMAL) E.U./dL (NORMAL)
[2023-08-22 23:20] LABS: BILIRUBIN,URINE NEGATIVE (NEGATIVE); CLARITY,URINE CLEAR (CLEAR); ICTOTEST,URINE NEGATIVE
--- NOTE | 2023-08-23 01:35 | HISTORY & PHYSICAL EXAMINATION ---
Chief Complaint - Chief Complaint Chief Complaint: generalized weakness History of Present Illness - Admitted From Admitted From:: home - History Obtained From Exam Limitations: telemedicine - History of Present Illness HPI Comment/Other: Ms Foss is a 52 yo F with hx DM II, myotonic dystrophy, paroxysmal A fib (new onset A fib diagnosed at last hospital admission). She had recent hospitalization 06/09/23-07/07/23, was discharged to SNF. She was discharged home from SNF approximately 2 weeks ago. Has been using a walker and ambulating with assistance since discharge from SNF, prior baseline was independent ambulation with a cane. She presents to ER today via EMS for generalized weakness. Per family patient has had decreased PO intake, more tired/lethargic, confused at times and missing doses of insulin. Has been bedbound for the past 2-3 days due to generalized weakness. Tested positive for COVID in ER. Patients that her mother has also been sick. She denies fevers, but did have chills. Denies abd pain, n/v. Had some mild diarrhea which is improved. Denies cp, sob. Reports chronic cough which is unchanged. History - Past Medical History Cardiovascular: reports: None Respiratory: reports: None Neuro: reports: Other Endocrine/Autoimmune: reports: Type 2 diabetes GI: reports: None TUBE HEATER: reports: None : reports: None HEENT: reports: None Psych: reports: None Musculoskeletal: reports: Other (myotonic dystrophy ) Derm: reports: None - Family & Social History Family History: Mother: Alive and Well, Father: Family History Comment/Other: Her older sister has muscular dystrophy, her father had muscular dystrophy. She has no children, she is a of 5 years. Living Situation: With family Social History Notes: She quit smoking about 20 years ago. She drinks alcohol extremely rarely, last drink was 4 years ago. She is on disability, she does not work outside of the home. She lives with her mother. - Substance History Use: Uses substance without health or social issues: NONE - POLST Patient has POLST: Yes POLST Status: DNR Meds/Allgy - Home Medications Home Medications: Ambulatory Orders Medication Instructions Recorded Confirmed Gabapentin [Neurontin] 300 mg PO DAILY 06/09/23 06/09/23 Simvastatin [Zocor] 10 mg PO DAILY 06/09/23 08/23/23 Tocopheryl [Vitamin E] 400 unit PO DAILY 06/10/23 08/23/23 Vitamin B Complex 1 each PO DAILY 06/10/23 08/23/23 Insulin Glargine-Yfgn [Semglee] 17 unit SUBQ DAILY 30 Days #5.1 ml 07/06/23 Insulin Glargine-Yfgn [Semglee] 20 unit SUBQ QPM 30 Days #6 ml 07/06/23 Insulin Lispro [Humalog Kwikpen 3 - 11 unit SUBQ 07/06/23 U-100] 0800,1200,1700,2100 #5 ml Insulin Lispro [Humalog Kwikpen 5 unit SUBQ TIDWM #5 ml 07/06/23 U-100] Gabapentin [Neurontin] 300 mg PO DAILY 08/23/23 08/23/23 Liraglutide [Victoza 2-Pal] 1.2 mg SUBQ DAILY PM 08/23/23 08/23/23 Losartan Potassium 12.5 mg PO DAILY 08/23/23 08/23/23 - Allergies Allergies/Adverse Reactions: Allergies Allergy/AdvReac Type Severity Reaction Status Date / Time amoxicillin AdvReac Rash Verified 08/22/23 18:03 Sulfa (Sulfonamide AdvReac Hives Verified 08/22/23 18:03 Antibiotics) Review of Systems - Constitutional Constitutional: reports: Fatigue, Chills, Weakness, Poor appetite. denies: Fever - Ears, Nose & Throat Ears, Nose & Throat: denies: Hearing loss - Cardiovascular Cariovascular: denies: Chest pain, Lightheadedness, Syncope - Respiratory Respiratory: reports: Cough (chronic, unchanged). denies: Sputum production, Wheezing, SOB at rest, SOB with exertion - Gastrointestinal Gastrointestinal: reports: Diarrhea (mild, occasional). denies: Abdominal pain, Constipation, Nausea, Vomiting - Genitourinary Genitourinary: denies: Dysuria, Frequency - Musculoskeletal Musculoskeletal: reports: Muscle aches (occasional) - Integumentary Integumentary: denies: Rash, Pruritis - Neurological Neurological: reports: General weakness. denies: Focal weakness - All Other Systems All Other Systems: reports: Reviewed and negative Prior Level of Functionality: ambulates with walker Exam - Vital Signs Reviewed Vital Signs: Yes Vital Signs: Vital Signs x48h Temp Pulse Resp BP Pulse Ox O2 Flow Rate 08/23/23 01:00 102 H 33 H 109/58 L 92 3 08/23/23 00:30 89 22 109/58 L 98 3 08/23/23 00:00 86 23 90/52 L 94 3 08/22/23 23:00 36.8 C 103 H 23 90/55 L 99 3 08/22/23 22:47 36.8 C 80 23 93/43 L 95 08/22/23 21:56 22 92/56 L 98 3 08/22/23 21:30 36.5 C 107 H 22 83/61 L 98 3 08/22/23 21:02 99 14 85/73 L 95 3 08/22/23 19:25 99 25 H 101/70 95 4 08/22/23 19:08 107 H 17 95/64 94 08/22/23 18:11 87 18 97/59 L 95 4 08/22/23 18:03 36.0 C L 99 18 92/51 L 90 L - Physical Exam General Appearance: positive: No acute distress, Alert Eyes Bilateral: positive: Normal inspection ENT: positive: ENT inspection nml, Dry mucous membranes Neck: positive: Nml inspection Respiratory: positive: No respiratory distress Skin: positive: Color nml, No rash Extremities: positive: Nml appearance Neurologic/Psychiatric: positive: Oriented x3, Mood/affect nml Conclusion/Plan - Lab Results Lab results reviewed: Yes Fish Bones: 08/22/23 18:20 08/22/23 18:20 - Diagnostic Imaging Results Diagnostic Imaging Results: positive: Final report reviewed - Other Other Results/Comments: Assessment/Plan: Acute hypoxic respiratory failure secondary to COVID-19 infection Generalized weakness Dehydration, poor appetite -Supportive care -Currently on 3 L NC, wean as tolerated -IV fluids for hydration, caution given recent hospital admission with pulmonary edema -Isolation precautions DM II -SSI Paroxysmal A fib -Patient is not on a/c due to concerns with frequent falls/bleeding risks, concerns with med compliance -Monitor DNR - reviewed POLST form, patient agrees DNR DVT ppx: Lovenox sc Telemedicine Consult Details - Provider Location & Consult Time Telemedicine consultation conducted via videoconferencing?: Yes List names and roles of persons who participated in consult:: Jennifer HERNANDEZ, patient Telemedicine provider location:: [place], [place]
[2023-08-23] MEDS ORDERED: SODIUM CHLORIDE FLUSH 0.9% 10 ML SYRINGE IVP PRN (01:54)
[2023-08-23] MEDS: SODIUM CHLORIDE 0.9% 1,000 ML IV SCH ×2 (02:48→12:31)
[2023-08-23] MEDS: INSULIN LISPRO 300 UNIT/3 ML PEN SUBQ SCH ×4 (08:26→21:35)
[2023-08-23] MEDS: ENOXAPARIN 40 MG/0.4 ML SYRINGE SUBQ SCH (08:26)
[2023-08-23] MEDS: SODIUM CHLORIDE FLUSH 0.9% 10 ML SYRINGE IVP SCH ×2 (08:26→17:58)
[2023-08-23] MEDS ORDERED: DEXAMETHASONE 10 MG/ML VIAL IVP ONE (10:57)
--- NOTE | 2023-08-23 11:29 | Ultrasound Report ---
PROCEDURE: Duplex Ext Veins Bilateral INDICATIONS: Vargas Betancourt MD TECHNIQUE: Real-time imaging, as well as color and pulse Doppler interrogation, were performed of the deep veins of both legs from the inguinal ligament to the popliteal fossa. Attempted visualization of the calf veins was performed. COMPARISON: DVT ultrasound 06/09/2023 FINDINGS: The deep veins are normally compressible, and free of intraluminal thrombus. Color and pu lse Doppler demonstrate normal phasic intravascular flow. There is normal augmentation response to d istal compression maneuver. IMPRESSION: No deep venous thrombosis of the visualized lower extremities. Reviewed by: Alan Pugh MD on 08/23/2023 11:27 AM PST Approved by: Alan Pugh MD on 08/23/2023 11:27 AM PST Station ID: [id number]
[2023-08-23] MEDS: REMDESIVIR 100 MG in SODIUM CHLORIDE 0.9% 100ML 100 ML IV SCH (13:44)
[2023-08-23] MEDS: guaiFENesin 600 MG TABLET PO SCH (21:35)
[2023-08-23] MEDS: traZODone 50 MG TABLET PO SCH ×2 (22:40→23:59)
[2023-08-24] MEDS: SODIUM CHLORIDE FLUSH 0.9% 10 ML SYRINGE IVP SCH ×3 (05:07→17:38)
[2023-08-24] MEDS: SODIUM CHLORIDE 0.9% 1,000 ML IV SCH ×3 (05:07→17:41)
[2023-08-24 05:49] LABS: HCT - HEMATOCRIT 41.2 % (37.0-47.0); HGB - HEMOGLOBIN 11.8 g/dL (12.0-16.0); LYMPHOCYTES % (AUTO) 32.5 %; MEAN CORPUSCULAR HEMOGLOBIN 25.4 pg (27.0-31.0); MEAN CORPUSCULAR HGB CONC 28.6 g/dL (32.0-36.0); MEAN CORPUSCULAR VOLUME 88.8 fL (81.0-99.0); MEAN PLATELET VOLUME 9.8 fL (7.9-10.8); MONOCYTES % (AUTO) 7.5 %; NEUTROPHILS % (AUTO) 59.5 %; PLT - PLATELET COUNT 113 10^3/uL (130-450); RED BLOOD COUNT 4.64 10^6/uL (4.20-5.40); RED CELL DISTRIBUTION WIDTH 16.9 % (12.0-15.0)
[2023-08-24 06:23] LABS: CALCIUM 8.9 mg/dL (8.5-10.3); CREATININE 0.4 mg/dL (0.6-1.3); POTASSIUM 4.1 mmol/L (3.5-4.5)
[2023-08-24 07:03] LABS: ABNORMAL LYMPHS % (MANUAL) 0 %; BAND NEUTROPHILS % (MANUAL) 0 %
[2023-08-24 07:20] LABS: LYMPHOCYTES # (MANUAL) 0.7 10^3/uL (1.5-3.5); LYMPHOCYTES % (MANUAL) 23 %; MONOCYTES # (MANUAL) 0.2 10^3/uL (0.0-1.0); NEUTROPHILS # (MANUAL) 1.2 10^3/uL (1.5-6.6); PLATELET ESTIMATE, MANUAL NORMAL (130-450,000) (NORMAL); PLATELET MORPHOLOGY NORMAL APPEARANCE (NORMAL); REACTIVE LYMPHS % (MANUAL) 10 %
[2023-08-24 07:21] LABS: DIFFERENTIAL COMMENT MANUAL DIFFERENTIAL
[2023-08-24] MEDS: INSULIN LISPRO 300 UNIT/3 ML PEN SUBQ SCH ×4 (08:36→19:55)
[2023-08-24] MEDS: DEXAMETHASONE 4 MG/ML VIAL IVP SCH (08:36)
[2023-08-24] MEDS: GABAPENTIN 300 MG CAPSULE PO SCH ×2 (08:38→08:39)
[2023-08-24] MEDS: traZODone 50 MG TABLET PO SCH ×2 (08:38→20:06)
[2023-08-24] MEDS: LOSARTAN 50 MG TABLET PO SCH (08:38)
[2023-08-24] MEDS: guaiFENesin 600 MG TABLET PO SCH ×2 (08:39→20:06)
[2023-08-24] MEDS: ENOXAPARIN 40 MG/0.4 ML SYRINGE SUBQ SCH (08:40)
[2023-08-24] MEDS: REMDESIVIR 100 MG in SODIUM CHLORIDE 0.9% 100ML 100 ML IV SCH (11:33)
--- NOTE | 2023-08-24 18:04 | PROVIDER PROGRESS NOTE ---
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 She cannot remember that she is advised to call for help to stand up. 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 She lives with her mother and gets caregivers in addition She has resp muscle weakness and we considered using a trilogy machine the last time she was here with RSV infection, since she needed to be on BIPAP then CPAP. Her Echo done then showed mild RV enlargement but preserved LV and RV function. She did need to go to SNF for rehab after that admission and has only been home for 2 weeks since then Plan: Continue supportive care Shower ordered At the last admission an Advanced Care Plan was done with her mother and a POLST form completed. Patient is a DNR/DNI. (5) Leukopenia WBC was 4.2 at adm>> 2 today. She has had this problem before, unknown if she has marrow disease or if it is an effect of her viral infection Plan: Follow CBC with diff daily, institute neutropenia precautions if needed (6) DM Type 2 Plan: Continue diabetic diet, fingerstick checks, SS Insiulin coverage, Hypoglycemia protocol EWill check her A1c (7) A fib Patient is not on anticoag due to confusion and frequent falls/bleeding risks, also concerns with med compliance Plan: Continue heart rate slowing meds Remain on telemetry (8) LBBB This is chronic for her - Current Meds Current Meds: Current Medications Generic Name Dose Route Start Last Admin Trade Name Freq PRN Reason Stop Dose Admin Dexamethasone 6 mg 08/24/23 09:00 08/24/23 08:36 Dexamethasone 4 Mg/Ml Vial IVP 6 mg DAILY PEREZ Administration Enoxaparin Sodium 40 mg 08/23/23 09:00 08/24/23 08:40 Enoxaparin 40 Mg/0.4 Ml Syringe SUBQ 40 mg DAILY PEREZ Administration Gabapentin 300 mg 08/24/23 09:00 08/24/23 08:39 Gabapentin 300 Mg Capsule PO 300 mg DAILY PEREZ Administration Guaifenesin 600 mg 08/23/23 21:00 08/24/23 08:39 Guaifenesin 600 Mg Tablet PO 600 mg BID PEREZ Administration Sodium Chloride 1,000 mls @ 100 mls/hr 08/23/23 02:00 08/24/23 17:41 Normal Saline 0.9% IV 100 mls/hr .Q10H PEREZ Administration Remdesivir 100 mg/ Sodium 100 mls @ 200 mls/hr 08/23/23 11:00 08/24/23 12:05 Chloride IV 08/26/23 11:29 Infused 1100 PEREZ Infusion Insulin Human Lispro 1 - 9 unit 08/23/23 08:00 08/24/23 17:38 Insulin Lispro 300 Unit/3 Ml Pen SUBQ 5 unit 0800,1200,1700,2100 PEREZ Administration Protocol Losartan Potassium 12.5 mg 08/24/23 09:00 08/24/23 08:38 Losartan 50 Mg Tablet PO 12.5 mg DAILY PEREZ Administration Sodium Chloride 10 ml 08/23/23 01:54 08/23/23 02:48 Sodium Chloride Flush 0.9% 10 Ml Syringe IVP 10 ml PRN PRN Administration NEEDED PER PROVIDER ORDERS Sodium Chloride 10 ml 08/23/23 09:00 08/24/23 17:38 Sodium Chloride Flush 0.9% 10 Ml Syringe IVP 10 ml 0100,0900,1700 PEREZ Administration Trazodone HCl 50 mg 08/23/23 21:00 08/24/23 08:38 Trazodone 50 Mg Tablet PO 50 mg BID PEREZ Administration - Lab Result Fish Bone Diagrams: 08/24/23 05:39 08/24/23 05:39 - Additional Planning My Orders: My Active Orders 08/23/23 17:11 Shower [RC] PRN 08/23/23 17:12 Oral Care - Nursing [RC] BID 08/23/23 21:00 guaiFENesin [Mucinex] 600 mg PO BID traZODone [Desyrel] 50 mg PO BID 08/24/23 1:1 Safety Observation [OTHERS] Routine 08/24/23 09:00 Gabapentin [Neurontin] 300 mg PO DAILY Losartan [Cozaar] 12.5 mg PO DAILY dexAMETHasone [Decadron] 6 mg IVP DAILY 08/25/23 05:00 BMP - BASIC METABOLIC PANEL [CHEM] DAILYLAB CBC - COMP BLD CT W/AUTO DIFF [HEME] DAILYLAB MAGNESIUM [CHEM] DAILYLAB Subjective - Subjective Nursing Reports: Other (Does not know where she is and keeps getting up alone forgetting to use the call light) Objective Vital Signs: Vital Signs - 24 hr 08/23/23 08/23/23 08/24/23 19:10 20:37 00:01 Temperature 36.6 C 36.3 C L Heart Rate [ 91 95 Brachial] Respiratory 20 25 H Rate Blood Pressure 109/58 L 123/60 [Right Brachial artery] O2 Saturation 94 92 If not protocol 3 3 3 : Oxygen Flow, liters/minute 08/24/23 08/24/23 08/24/23 05:14 07:39 08:48 Temperature 36.5 C 36.4 C L Heart Rate [ 79 86 Brachial] Respiratory 20 20 Rate Blood Pressure 105/58 L 108/59 L [Right Brachial artery] O2 Saturation 92 92 If not protocol 3 3 3 : Oxygen Flow, liters/minute 08/24/23 08/24/23 16:00 17:33 Temperature 36.8 C Heart Rate [ 79 Brachial] Respiratory 16 Rate Blood Pressure 98/53 L 112/68 [Right Brachial artery] O2 Saturation 91 L 92 If not protocol 3 4 : Oxygen Flow, liters/minute Oxygen O2 Source Nasal cannula I&O (Last 24 Hrs): Intake and Output Totals x24h 08/22/23 08/23/23 08/24/23 23:59 23:59 23:59 Intake Total 748.113 3673.667 1856.667 Output Total 425 Balance 255.822 2322.667 1856.667 General: Mild distress (she is disheveled and is confused) HEENT: Mucous membr. moist/pink, Other (Poor dentition) Neck: Supple Neuro: Alert, Disoriented, Non Focal, Other (Has geb=neralized muscle weakness and speaks softly) Respiratory: Rhonchi Abdomen: Soft Extremities: No clubbing, No edema, No tenderness/swelling - Results Results: Laboratory Results WBC 2.0 x10^3/uL (4.8-10.8) L* 08/24/23 05:39 RBC 4.64 10^6/uL (4.20-5.40) 08/24/23 05:39 Hgb 11.8 g/dL (12.0-16.0) L 08/24/23 05:39 Hct 41.2 % (37.0-47.0) 08/24/23 05:39 MCV 88.8 fL (81.0-99.0) 08/24/23 05:39 MCH 25.4 pg (27.0-31.0) L 08/24/23 05:39 MCHC 28.6 g/dL (32.0-36.0) L 08/24/23 05:39 RDW 16.9 % (12.0-15.0) H 08/24/23 05:39 Plt Count 113 10^3/uL (130-450) L 08/24/23 05:39 MPV 9.8 fL (7.9-10.8) 08/24/23 05:39 Neut # (Auto) Not Reportable 08/24/23 05:39 Lymph # (Auto) Not Reportable 08/24/23 05:39 [place] # (Auto) Not Reportable 08/24/23 05:39 Eos # (Auto) Not Reportable 08/24/23 05:39 Baso # (Auto) Not Reportable 08/24/23 05:39 Absolute Nucleated RBC Not Reportable 08/24/23 05:39 Total Counted 100 08/24/23 05:39 Band Neuts % (Manual) 0 % (0-10) 08/24/23 05:39 Reactive Lymphs % (Man) 10 % 08/24/23 05:39 Abnorm Lymph % (Manual) 0 % 08/24/23 05:39 Nucleated RBC % Not Reportable 08/24/23 05:39 Neutrophils # (Manual) 1.2 10^3/uL (1.5-6.6) L 08/24/23 05:39 Lymphocytes # (Manual) 0.7 10^3/uL (1.5-3.5) L 08/24/23 05:39 Monocytes # (Manual) 0.2 10^3/uL (0.0-1.0) 08/24/23 05:39 Eosinophils # (Manual) 0.0 10^3/uL (0-0.7) 08/24/23 05:39 Basophils # (Manual) 0.0 10^3/uL (0-0.1) 08/24/23 05:39 Differential Comment MANUAL DIFFERENTIAL 08/24/23 05:39 Manual Slide Review Indicated 08/22/23 18:20 Platelet Estimate NORMAL (130-450,000) (NORMAL) 08/24/23 05:39 Platelet Morphology NORMAL APPEARANCE (NORMAL) 08/24/23 05:39 RBC Morph Micro Appear 2+ ANISOCYTOSIS (NORMAL) 1+ HYPOCHROMASIA (NORMAL) 08/22/23 18:20 RBC Morph Micro Appear 2+ ANISOCYTOSIS (NORMAL) 1+ HYPOCHROMASIA (NORMAL) 08/22/23 18:20 Sodium 144 mmol/L (135-145) 08/24/23 05:39 Potassium 4.1 mmol/L (3.5-4.5) 08/24/23 05:39 Chloride 107 mmol/L (101-111) 08/24/23 05:39 Carbon Dioxide 31 mmol/L (21-32) 08/24/23 05:39 Anion Gap 6.0 (6-13) 08/24/23 05:39 BUN 6 mg/dL (6-20) 08/24/23 05:39 Creatinine 0.4 mg/dL (0.6-1.3) L 08/24/23 05:39 Estimated GFR (MDRD) 167 (>89) 08/24/23 05:39 Glucose 231 mg/dL (74-104) H 08/24/23 05:39 Lactic Acid 0.7 mmol/L (0.5-2.2) 08/22/23 18:35 Calcium 8.9 mg/dL (8.5-10.3) 08/24/23 05:39 Total Bilirubin 0.6 mg/dL (0.2-1.0) 08/22/23 18:20 AST 29 IU/L (10-42) 08/22/23 18:20 ALT 11 IU/L (10-60) 08/22/23 18:20 Alkaline Phosphatase 61 IU/L (42-121) 08/22/23 18:20 Troponin I High Sens 58.3 ng/L (2.3-14.8) H* 08/22/23 21:19 B-Natriuretic Peptide 62 pg/mL (5-100) 08/22/23 18:20 Total Protein 6.2 g/dL (6.4-8.9) L 08/22/23 18:20 Albumin 3.4 g/dL (3.2-5.5) 08/22/23 18:20 Globulin 2.8 g/dL (2.1-4.2) 08/22/23 18:20 Albumin/Globulin Ratio 1.2 (1.0-2.2) 08/22/23 18:20 Lipase 38 U/L (11-82) 08/22/23 18:20 Urine Color DARK YELLOW 08/22/23 23:03 Urine Clarity CLEAR (CLEAR) 08/22/23 23:03 Urine pH 6.0 PH (5.0-7.5) 08/22/23 23:03 Ur Specific [place] 1.020 (1.002-1.030) 08/22/23 23:03 Urine Protein TRACE mg/dL (NEGATIVE) 08/22/23 23:03 Urine Glucose (UA) NEGATIVE mg/dL (NEGATIVE) 08/22/23 23:03 Urine Ketones NEGATIVE mg/dL (NEGATIVE) 08/22/23 23:03 Urine Occult Blood NEGATIVE (NEGATIVE) 08/22/23 23:03 Urine Nitrite NEGATIVE (NEGATIVE) 08/22/23 23:03 Urine Bilirubin NEGATIVE (NEGATIVE) 08/22/23 23:03 Urine Urobilinogen 1 (NORMAL) E.U./dL (NORMAL) 08/22/23 23:03 Ur Leukocyte Esterase NEGATIVE (NEGATIVE) 08/22/23 23:03 Ur Microscopic Review NOT INDICATED 08/22/23 23:03 Urine Culture Comments NOT INDICATED 08/22/23 23:03 Nasal Adenovirus (PCR) NOT DETECTED 08/22/23 21:50 Nasal B. parapertussis DNA (PCR) NOT DETECTED 08/22/23 21:50 Nasal Coronavir 229E PCR NOT DETECTED 08/22/23 21:50 Nasal Coronavir HKU1 PCR NOT DETECTED 08/22/23 21:50 Nasal Coronavir NL63 PCR NOT DETECTED 08/22/23 21:50 Nasal Coronavir OC43 PCR NOT DETECTED 08/22/23 21:50 Nasal Enterovir/Rhinovir PCR NOT DETECTED 08/22/23 21:50 Nasal Influenza B PCR NOT DETECTED 08/22/23 21:50 Nasal Influenza A PCR NOT DETECTED 08/22/23 21:50 Nasal Parainfluen 1 PCR NOT DETECTED 08/22/23 21:50 Nasal Parainfluen 2 PCR NOT DETECTED 08/22/23 21:50 Nasal Parainfluen 3 PCR NOT DETECTED 08/22/23 21:50 Nasal Parainfluen 4 PCR NOT DETECTED 08/22/23 21:50 Nasal RSV (PCR) NOT DETECTED 08/22/23 21:50 Nasal B.pertussis DNA PCR NOT DETECTED 08/22/23 21:50 Nasal C.pneumoniae (PCR) NOT DETECTED 08/22/23 21:50 Amish Human Metapneumo PCR NOT DETECTED 08/22/23 21:50 Nasal M.pneumoniae (PCR) NOT DETECTED 08/22/23 21:50 Nasal SARS-CoV-2 (PCR) DETECTED A 08/22/23 21:50 - Procedures Procedures: Procedures INSERTION OF INFUSION DEV INTO SUP VENA CAVA, PERC APPROACH (06/09/23)
[2023-08-24] MEDS: METOPROLOL SUCCINATE 25 MG TABLET PO SCH (20:06)
[2023-08-25] MEDS: SODIUM CHLORIDE FLUSH 0.9% 10 ML SYRINGE IVP SCH ×3 (03:09→17:11)
[2023-08-25 05:54] LABS: HCT - HEMATOCRIT 40.6 % (37.0-47.0); LYMPHOCYTES % (AUTO) 20.1 %; MEAN CORPUSCULAR HGB CONC 29.6 g/dL (32.0-36.0); MEAN CORPUSCULAR VOLUME 87.9 fL (81.0-99.0); MEAN PLATELET VOLUME 10.1 fL (7.9-10.8); MONOCYTES % (AUTO) 9.9 %; NEUTROPHILS % (AUTO) 69.7 %; PLT - PLATELET COUNT 151 10^3/uL (130-450); RED BLOOD COUNT 4.62 10^6/uL (4.20-5.40); RED CELL DISTRIBUTION WIDTH 16.9 % (12.0-15.0); WHITE BLOOD COUNT 3.9 x10^3/uL (4.8-10.8)
[2023-08-25 06:06] LABS: ABNORMAL LYMPHS % (MANUAL) 0 %; BAND NEUTROPHILS % (MANUAL) 0 %
[2023-08-25 06:07] LABS: CALCIUM 9.1 mg/dL (8.5-10.3); CREATININE 0.4 mg/dL (0.6-1.3); MAGNESIUM 1.5 mg/dL (1.7-2.3); POTASSIUM 4.1 mmol/L (3.5-4.5)
[2023-08-25 06:36] LABS: LYMPHOCYTES # (MANUAL) 0.9 10^3/uL (1.5-3.5); LYMPHOCYTES % (MANUAL) 22 %; MONOCYTES # (MANUAL) 0.4 10^3/uL (0.0-1.0); NEUTROPHILS # (MANUAL) 2.7 10^3/uL (1.5-6.6)
[2023-08-25 06:37] LABS: RBC MORPHOLOGY (MULTIPLE) NORMAL APPEARANCE (NORMAL)
[2023-08-25 06:38] LABS: DIFFERENTIAL COMMENT MANUAL DIFFERENTIAL; PLATELET ESTIMATE, MANUAL NORMAL (130-450,000) (NORMAL)
[2023-08-25] MEDS: SODIUM CHLORIDE 0.9% 1,000 ML IV SCH ×2 (06:40→19:17)
[2023-08-25] MEDS: INSULIN LISPRO 300 UNIT/3 ML PEN SUBQ SCH ×4 (08:49→20:37)
[2023-08-25] MEDS: ENOXAPARIN 40 MG/0.4 ML SYRINGE SUBQ SCH (08:49)
[2023-08-25] MEDS: DEXAMETHASONE 4 MG/ML VIAL IVP SCH (08:49)
[2023-08-25] MEDS: traZODone 50 MG TABLET PO SCH ×2 (08:50→20:24)
[2023-08-25] MEDS: guaiFENesin 600 MG TABLET PO SCH ×2 (08:50→20:24)
[2023-08-25] MEDS: ACETAMINOPHEN 325 MG TABLET PO PRN ×2 (08:50→20:24)
[2023-08-25] MEDS: LOSARTAN 50 MG TABLET PO SCH (08:50)
[2023-08-25] MEDS: METOPROLOL SUCCINATE 25 MG TABLET PO SCH ×2 (08:50→20:24)
[2023-08-25] MEDS: REMDESIVIR 100 MG in SODIUM CHLORIDE 0.9% 100ML 100 ML IV SCH (13:00)
--- NOTE | 2023-08-25 19:19 | PROVIDER PROGRESS NOTE ---
Assessment/Plan - Problem List (1) Respiratory failure with hypoxia Qualifiers: Chronicity: acute Qualified Code(s): J96.01 - Acute respiratory failure with hypoxia Assessment/Plan: Assessment/Plan: Secondary to COVID-19 infection and myotonic dystrophy Plan: Wean oxgen as tolerated. Continue supplemental O2, treat the underlying COVID infection Continue Remdesivir. (2) COVID-19 Plan: Continue remdesivir Continue IV Decadron Isolation precautions are ordered (3) Confusion 1:1 monitoring. (4) Myotonic Dystrophy Continue supportive care (5) Leukopenia Continue to monitor CBC (6) DM Type 2 Plan: Continue diabetic diet, fingerstick checks, SS Insiulin coverage, Hypoglycemia protocol (7) A fib Plan: Continue metoprolol for rate control (8) LBBB This is chronic for her CODE Status: DNR - Current Meds Current Meds: Current Medications Generic Name Dose Route Start Last Admin Trade Name Freq PRN Reason Stop Dose Admin Acetaminophen 650 mg 08/23/23 01:54 08/25/23 08:50 Acetaminophen 325 Mg Tablet PO 650 mg Q4HR PRN Administration Pain 1 to 4, or Fever Dexamethasone 6 mg 08/24/23 09:00 08/25/23 08:49 Dexamethasone 4 Mg/Ml Vial IVP 6 mg DAILY PEREZ Administration Enoxaparin Sodium 40 mg 08/23/23 09:00 08/25/23 08:49 Enoxaparin 40 Mg/0.4 Ml Syringe SUBQ 40 mg DAILY PEREZ Administration Gabapentin 300 mg 08/24/23 09:00 08/24/23 08:39 Gabapentin 300 Mg Capsule PO 300 mg DAILY PEREZ Administration Guaifenesin 600 mg 08/23/23 21:00 08/25/23 08:50 Guaifenesin 600 Mg Tablet PO 600 mg BID PEREZ Administration Sodium Chloride 1,000 mls @ 100 mls/hr 08/23/23 02:00 08/25/23 18:03 Normal Saline 0.9% IV Infused .Q10H PEREZ Infusion Remdesivir 100 mg/ Sodium 100 mls @ 200 mls/hr 08/23/23 11:00 08/25/23 13:35 Chloride IV 08/26/23 11:29 Infused 1100 PEREZ Infusion Insulin Human Lispro 2 - 10 unit 08/25/23 17:00 08/25/23 17:10 Insulin Lispro 300 Unit/3 Ml Pen SUBQ 6 unit 0800,1200,1700,2100 PEREZ Administration Protocol Losartan Potassium 12.5 mg 08/24/23 09:00 08/25/23 08:50 Losartan 50 Mg Tablet PO 12.5 mg DAILY PEREZ Administration Metoprolol Succinate 25 mg 08/24/23 21:00 08/25/23 08:50 Metoprolol Succinate 25 Mg Tablet PO 25 mg BID PEREZ Administration Sodium Chloride 10 ml 08/23/23 01:54 08/23/23 02:48 Sodium Chloride Flush 0.9% 10 Ml Syringe IVP 10 ml PRN PRN Administration NEEDED PER PROVIDER ORDERS Sodium Chloride 10 ml 08/23/23 09:00 08/25/23 17:11 Sodium Chloride Flush 0.9% 10 Ml Syringe IVP Not Given 0100,0900,1700 PEREZ Trazodone HCl 50 mg 08/23/23 21:00 08/25/23 08:50 Trazodone 50 Mg Tablet PO 50 mg BID PEREZ Administration - Lab Result Fish Bone Diagrams: 08/25/23 05:33 08/25/23 05:33 - Additional Planning My Orders: My Active Orders 08/25/23 17:00 Insulin Lispro [Humalog Kwikpen U-100] 2 - 10 unit SUBQ 0800,1200,1700,2100 Subjective - Subjective Patient Reports: Other (Alert. Complains of shortness of breath intermittently. Denies chest pain, nausea and vomiting.) Objective Vital Signs: Vital Signs - 24 hr 08/24/23 08/24/23 08/24/23 19:49 21:00 23:37 Temperature 36.6 C Heart Rate [ 88 87 Brachial] Respiratory 16 18 Rate Blood Pressure [Left Brachial artery] Blood Pressure 112/68 116/65 [Right Brachial artery] O2 Saturation 93 95 O2 Saturation [ Activity] O2 Saturation [ Sitting] If not protocol 4 4 4 : Oxygen Flow, liters/minute 08/25/23 08/25/23 08/25/23 07:34 07:35 11:02 Temperature 36.6 C Heart Rate [ 80 Brachial] Respiratory 18 Rate Blood Pressure 107/63 [Left Brachial artery] Blood Pressure [Right Brachial artery] O2 Saturation 93 O2 Saturation [ 85 L Activity] O2 Saturation [ 93 Sitting] If not protocol 3 3 : Oxygen Flow, liters/minute 08/25/23 08/25/2324 16:00 16:02 17:50 Temperature 36.6 C Heart Rate [ 91 Brachial] Respiratory 22 Rate Blood Pressure 106/78 [Left Brachial artery] Blood Pressure [Right Brachial artery] O2 Saturation 88 L 93 94 O2 Saturation [ Activity] O2 Saturation [ Sitting] If not protocol 3 5 5 : Oxygen Flow, liters/minute Oxygen O2 Source Nasal cannula I&O (Last 24 Hrs): Intake and Output Totals x24h 08/23/23 08/24/23 08/25/23 23:59 23:59 23:59 Intake Total 2981.667 2878.334 2231.633 Output Total 425 325 900 Balance 2556.667 2553.334 1331.633 General: Alert, No acute distress HEENT: Atraumatic, PERRLA, EOMI Neck: Supple, No JVD, No thyromegaly, No LAD Lymphatic: no adenopathy Neuro: Alert, Non Focal Cardiovascular: Regular rate, Normal S1, Normal S2, No murmurs Respiratory: Chest non-tender, Other (Fair air exchange. No wheezing. No crack les.) Abdomen: Normal bowel sounds, Soft, Other (Positive bowel sounds. No hepatosplenomegaly.) - Results Results: Laboratory Results WBC 3.9 x10^3/uL (4.8-10.8) L 08/25/23 05:33 RBC 4.62 10^6/uL (4.20-5.40) 08/25/23 05:33 Hgb 12.0 g/dL (12.0-16.0) 08/25/23 05:33 Hct 40.6 % (37.0-47.0) 08/25/23 05:33 MCV 87.9 fL (81.0-99.0) 08/25/23 05:33 MCH 26.0 pg (27.0-31.0) L 08/25/23 05:33 MCHC 29.6 g/dL (32.0-36.0) L 08/25/23 05:33 RDW 16.9 % (12.0-15.0) H 08/25/23 05:33 Plt Count 151 10^3/uL (130-450) 08/25/23 05:33 MPV 10.1 fL (7.9-10.8) 08/25/23 05:33 Neut # (Auto) Not Reportable 08/25/23 05:33 Lymph # (Auto) Not Reportable 08/25/23 05:33 [place] # (Auto) Not Reportable 08/25/23 05:33 Eos # (Auto) Not Reportable 08/25/23 05:33 Baso # (Auto) Not Reportable 08/25/23 05:33 Absolute Nucleated RBC Not Reportable 08/25/23 05:33 Total Counted 100 08/25/23 05:33 Band Neuts % (Manual) 0 % (0-10) 08/25/23 05:33 Reactive Lymphs % (Man) 10 % 08/24/23 05:39 Abnorm Lymph % (Manual) 0 % 08/25/23 05:33 Nucleated RBC % Not Reportable 08/25/23 05:33 Neutrophils # (Manual) 2.7 10^3/uL (1.5-6.6) 08/25/23 05:33 Lymphocytes # (Manual) 0.9 10^3/uL (1.5-3.5) L 08/25/23 05:33 Monocytes # (Manual) 0.4 10^3/uL (0.0-1.0) 08/25/23 05:33 Eosinophils # (Manual) 0.0 10^3/uL (0-0.7) 08/25/23 05:33 Basophils # (Manual) 0.0 10^3/uL (0-0.1) 08/25/23 05:33 Differential Comment MANUAL DIFFERENTIAL 08/25/23 05:33 Manual Slide Review Indicated 08/22/23 18:20 Platelet Estimate NORMAL (130-450,000) (NORMAL) 08/25/23 05:33 Platelet Morphology NORMAL APPEARANCE (NORMAL) 08/24/23 05:39 RBC Morph Micro Appear NORMAL APPEARANCE (NORMAL) 08/25/23 05:33 Sodium 144 mmol/L (135-145) 08/25/23 05:33 Potassium 4.1 mmol/L (3.5-4.5) 08/25/23 05:33 Chloride 107 mmol/L (101-111) 08/25/23 05:33 Carbon Dioxide 32 mmol/L (21-32) 08/25/23 05:33 Anion Gap 5.0 (6-13) L 08/25/23 05:33 BUN 8 mg/dL (6-20) 08/25/23 05:33 Creatinine 0.4 mg/dL (0.6-1.3) L 08/25/23 05:33 Estimated GFR (MDRD) 167 (>89) 08/25/23 05:33 Glucose 249 mg/dL (74-104) H 08/25/23 05:33 Lactic Acid 0.7 mmol/L (0.5-2.2) 08/22/23 18:35 Calcium 9.1 mg/dL (8.5-10.3) 08/25/23 05:33 Magnesium 1.5 mg/dL (1.7-2.3) L 08/25/23 05:33 Total Bilirubin 0.6 mg/dL (0.2-1.0) 08/22/23 18:20 AST 29 IU/L (10-42) 08/22/23 18:20 ALT 11 IU/L (10-60) 08/22/23 18:20 Alkaline Phosphatase 61 IU/L (42-121) 08/22/23 18:20 Troponin I High Sens 58.3 ng/L (2.3-14.8) H* 08/22/23 21:19 B-Natriuretic Peptide 62 pg/mL (5-100) 08/22/23 18:20 Total Protein 6.2 g/dL (6.4-8.9) L 08/22/23 18:20 Albumin 3.4 g/dL (3.2-5.5) 08/22/23 18:20 Globulin 2.8 g/dL (2.1-4.2) 08/22/23 18:20 Albumin/Globulin Ratio 1.2 (1.0-2.2) 08/22/23 18:20 Lipase 38 U/L (11-82) 08/22/23 18:20 Urine Color DARK YELLOW 08/22/23 23:03 Urine Clarity CLEAR (CLEAR) 08/22/23 23:03 Urine pH 6.0 PH (5.0-7.5) 08/22/23 23:03 Ur Specific [place] 1.020 (1.002-1.030) 08/22/23 23:03 Urine Protein TRACE mg/dL (NEGATIVE) 08/22/23 23:03 Urine Glucose (UA) NEGATIVE mg/dL (NEGATIVE) 08/22/23 23:03 Urine Ketones NEGATIVE mg/dL (NEGATIVE) 08/22/23 23:03 Urine Occult Blood NEGATIVE (NEGATIVE) 08/22/23 23:03 Urine Nitrite NEGATIVE (NEGATIVE) 08/22/23 23:03 Urine Bilirubin NEGATIVE (NEGATIVE) 08/22/23 23:03 Urine Urobilinogen 1 (NORMAL) E.U./dL (NORMAL) 08/22/23 23:03 Ur Leukocyte Esterase NEGATIVE (NEGATIVE) 08/22/23 23:03 Ur Microscopic Review NOT INDICATED 08/22/23 23:03 Urine Culture Comments NOT INDICATED 08/22/23 23:03 Nasal Adenovirus (PCR) NOT DETECTED 08/22/23 21:50 Nasal B. parapertussis DNA (PCR) NOT DETECTED 08/22/23 21:50 Nasal Coronavir 229E PCR NOT DETECTED 08/22/23 21:50 Nasal Coronavir HKU1 PCR NOT DETECTED 08/22/23 21:50 Nasal Coronavir NL63 PCR NOT DETECTED 08/22/23 21:50 Nasal Coronavir OC43 PCR NOT DETECTED 08/22/23 21:50 Nasal Enterovir/Rhinovir PCR NOT DETECTED 08/22/23 21:50 Nasal Influenza B PCR NOT DETECTED 08/22/23 21:50 Nasal Influenza A PCR NOT DETECTED 08/22/23 21:50 Nasal Parainfluen 1 PCR NOT DETECTED 08/22/23 21:50 Nasal Parainfluen 2 PCR NOT DETECTED 08/22/23 21:50 Nasal Parainfluen 3 PCR NOT DETECTED 08/22/23 21:50 Nasal Parainfluen 4 PCR NOT DETECTED 08/22/23 21:50 Nasal RSV (PCR) NOT DETECTED 08/22/23 21:50 Nasal B.pertussis DNA PCR NOT DETECTED 08/22/23 21:50 Nasal C.pneumoniae (PCR) NOT DETECTED 08/22/23 21:50 Amish Human Metapneumo PCR NOT DETECTED 08/22/23 21:50 Nasal M.pneumoniae (PCR) NOT DETECTED 08/22/23 21:50 Nasal SARS-CoV-2 (PCR) DETECTED A 08/22/23 21:50 - Procedures Procedures: Procedures INSERTION OF INFUSION DEV INTO SUP VENA CAVA, PERC APPROACH (06/09/23) ABX Reporting Has patient been on IV antibiotics over the past 48 hours?: No Current Medications - Current Medications Current Medications: Active Medications Acetaminophen (Acetaminophen 325 Mg Tablet) 650 mg PO Q4HR PRN PRN Reason: Pain 1 to 4, or Fever Last Admin: 08/25/23 08:50 Dose: 650 mg Dexamethasone (Dexamethasone 4 Mg/Ml Vial) 6 mg IVP DAILY [facility] Last Admin: 08/25/23 08:49 Dose: 6 mg Enoxaparin Sodium (Enoxaparin 40 Mg/0.4 Ml Syringe) 40 mg SUBQ DAILY [facility] Last Admin: 08/25/23 08:49 Dose: 40 mg Gabapentin (Gabapentin 300 Mg Capsule) 300 mg PO DAILY [facility] Last Admin: 08/24/23 08:39 Dose: 300 mg Guaifenesin (Guaifenesin 600 Mg Tablet) 600 mg PO BID [facility] Last Admin: 08/25/23 08:50 Dose: 600 mg Sodium Chloride (Normal Saline 0.9%) 1,000 mls @ 100 mls/hr IV .Q10H [facility] Last Admin: 08/25/23 19:17 Dose: 100 mls/hr Remdesivir 100 mg/ Sodium (Chloride) 100 mls @ 200 mls/hr IV 1100 [facility] Stop: 08/26/23 11:29 Last Infusion: 08/25/23 13:35 Dose: Infused Insulin Human Lispro (Insulin Lispro 300 Unit/3 Ml Pen) 2 - 10 unit SUBQ 0800,1200,1700,2100 [facility]; Protocol Last Admin: 08/25/23 17:10 Dose: 6 unit Losartan Potassium (Losartan 50 Mg Tablet) 12.5 mg PO DAILY [facility] Last Admin: 08/25/23 08:50 Dose: 12.5 mg Metoprolol Succinate (Metoprolol Succinate 25 Mg Tablet) 25 mg PO BID [facility] Last Admin: 08/25/23 08:50 Dose: 25 mg Sodium Chloride (Sodium Chloride Flush 0.9% 10 Ml Syringe) 10 ml IVP PRN PRN PRN Reason: NEEDED PER PROVIDER ORDERS Last Admin: 08/23/23 02:48 Dose: 10 ml Sodium Chloride (Sodium Chloride Flush 0.9% 10 Ml Syringe) 10 ml IVP 0100,0900,1700 [facility] Last Admin: 08/25/23 17:11 Dose: Not Given Trazodone HCl (Trazodone 50 Mg Tablet) 50 mg PO BID [facility] Last Admin: 08/25/23 08:50 Dose: 50 mg Simvastatin [Zocor] 10 mg PO DAILY 06/09/23 Tocopheryl [Vitamin E] 400 unit PO DAILY 06/10/23 Vitamin B Complex 1 each PO DAILY 06/10/23 Gabapentin [Neurontin] 300 mg PO DAILY 08/23/23 Liraglutide [Victoza 2-Pal] 1.2 mg SUBQ DAILY PM 08/23/23 Losartan Potassium 12.5 mg PO DAILY 08/23/23 traZODone [Desyrel] 50 mg PO BID 08/23/23 Insulin Glargine-Yfgn [Semglee] 20 unit SUBQ BID 08/25/23 Insulin Lispro [Humalog Kwikpen U-100] 6 unit SUBQ TIDWM 08/25/23
[2023-08-25] MEDS: MAGNESIUM OXIDE 400 MG TABLET PO SCH (20:35)
[2023-08-25] MEDS ORDERED: INSULIN GLARGINE-YFGN 300 UNIT/3 ML PEN SUBQ SCH (21:00)
[2023-08-26] MEDS: ACETAMINOPHEN 325 MG TABLET PO PRN ×2 (00:20→10:10)
[2023-08-26] MEDS: SODIUM CHLORIDE FLUSH 0.9% 10 ML SYRINGE IVP SCH ×2 (01:56→10:21)
[2023-08-26] MEDS: SODIUM CHLORIDE 0.9% 1,000 ML IV SCH ×2 (01:56→10:22)
[2023-08-26] MEDS: INSULIN LISPRO 300 UNIT/3 ML PEN SUBQ SCH ×4 (09:58→21:02)
[2023-08-26] MEDS: ENOXAPARIN 40 MG/0.4 ML SYRINGE SUBQ SCH (10:00)
[2023-08-26] MEDS: MAGNESIUM OXIDE 400 MG TABLET PO SCH (10:20)
[2023-08-26] MEDS: traZODone 50 MG TABLET PO SCH ×2 (10:21→21:01)
[2023-08-26] MEDS: polyethylene glycoL 3350 17 GM PACKET PO SCH (10:21)
[2023-08-26] MEDS: GABAPENTIN 300 MG CAPSULE PO SCH (10:21)
[2023-08-26] MEDS: METOPROLOL SUCCINATE 25 MG TABLET PO SCH ×2 (10:21→21:01)
[2023-08-26] MEDS: guaiFENesin 600 MG TABLET PO SCH ×2 (10:21→21:01)
[2023-08-26] MEDS: DEXAMETHASONE 4 MG/ML VIAL IVP SCH (10:21)
[2023-08-26] MEDS: LOSARTAN 50 MG TABLET PO SCH (10:21)
[2023-08-26] MEDS: REMDESIVIR 100 MG in SODIUM CHLORIDE 0.9% 100ML 100 ML IV SCH (11:19)
--- NOTE | 2023-08-26 12:01 | PROVIDER PROGRESS NOTE ---
Subjective - Prog Note Date Prog Note Date: 08/26/23 Prog Note Time: 11:59 - Subjective Subjective: Today patient has been repeatedly taking off oxygen nasal cannula and removing IV. Upon assessment she is somnolent and hypoverbal, and states she is sleepy. Current Medications - Current Medications Current Medications: Active Medications Acetaminophen (Acetaminophen 325 Mg Tablet) 650 mg PO Q4HR PRN PRN Reason: Pain 1 to 4, or Fever Last Admin: 08/26/23 00:20 Dose: 650 mg Dexamethasone (Dexamethasone 4 Mg/Ml Vial) 6 mg IVP DAILY [facility] Last Admin: 08/26/23 10:21 Dose: Not Given Enoxaparin Sodium (Enoxaparin 40 Mg/0.4 Ml Syringe) 40 mg SUBQ DAILY [facility] Last Admin: 08/26/23 10:00 Dose: 40 mg Gabapentin (Gabapentin 300 Mg Capsule) 300 mg PO DAILY [facility] Last Admin: 08/26/23 10:21 Dose: 300 mg Guaifenesin (Guaifenesin 600 Mg Tablet) 600 mg PO BID [facility] Last Admin: 08/26/23 10:21 Dose: 600 mg Sodium Chloride (Normal Saline 0.9%) 1,000 mls @ 100 mls/hr IV .Q10H [facility] Last Admin: 08/26/23 10:22 Dose: Not Given Insulin Glargine-yfgn (Insulin Glargine-Yfgn 300 Unit/3 Ml Pen) 5 unit SUBQ QPM [facility] Last Admin: 08/25/23 20:39 Dose: 5 unit Insulin Human Lispro (Insulin Lispro 300 Unit/3 Ml Pen) 2 - 10 unit SUBQ 0800,1200,1700,2100 [facility]; Protocol Last Admin: 08/26/23 09:58 Dose: 6 unit Losartan Potassium (Losartan 50 Mg Tablet) 12.5 mg PO DAILY [facility] Last Admin: 08/26/23 10:21 Dose: 12.5 mg Magnesium Oxide (Magnesium Oxide 400 Mg Tablet) 400 mg PO DAILYWM [facility] Last Admin: 08/26/23 10:20 Dose: 400 mg Metoprolol Succinate (Metoprolol Succinate 25 Mg Tablet) 25 mg PO BID [facility] Last Admin: 08/26/23 10:21 Dose: 25 mg Polyethylene Glycol (Polyethylene Glycol 3350 17 Gm Packet) 17 gm PO DAILY [facility] Last Admin: 08/26/23 10:21 Dose: Not Given Sodium Chloride (Sodium Chloride Flush 0.9% 10 Ml Syringe) 10 ml IVP PRN PRN PRN Reason: NEEDED PER PROVIDER ORDERS Last Admin: 08/23/23 02:48 Dose: 10 ml Sodium Chloride (Sodium Chloride Flush 0.9% 10 Ml Syringe) 10 ml IVP 0100,0900,1700 [facility] Last Admin: 08/26/23 10:21 Dose: Not Given Trazodone HCl (Trazodone 50 Mg Tablet) 50 mg PO BID [facility] Last Admin: 08/26/23 10:21 Dose: 50 mg Simvastatin [Zocor] 10 mg PO DAILY 06/09/23 Tocopheryl [Vitamin E] 400 unit PO DAILY 06/10/23 Vitamin B Complex 1 each PO DAILY 06/10/23 Gabapentin [Neurontin] 300 mg PO DAILY 08/23/23 Liraglutide [Victoza 2-Pal] 1.2 mg SUBQ DAILY PM 08/23/23 Losartan Potassium 12.5 mg PO DAILY 08/23/23 traZODone [Desyrel] 50 mg PO BID 08/23/23 Insulin Glargine-Yfgn [Semglee] 20 unit SUBQ BID 08/25/23 Insulin Lispro [Humalog Kwikpen U-100] 6 unit SUBQ TIDWM 08/25/23 Objective - Vital Signs/Intake & Output Reviewed Vital Signs: Yes Vital Signs: Vital Signs x48h Temp Pulse Resp BP Pulse Ox O2 Flow Rate 08/26/23 09:20 36.8 C 76 18 107/78 93 5 08/26/23 08:20 36.3 C L 84 16 85/55 L 97 5 08/26/23 06:13 96 5 Intake & Output: Intake & Output 08/23/23 08/24/23 08/25/23 08/26/23 23:59 23:59 23:59 23:59 Intake Total 2981.667 2878.334 2848.300 1823.333 Output Total 331 102 5593 Balance 2556.667 2553.334 7903.935 2806.333 - Objective General Appearance: positive: Lethargic Eyes Bilateral: positive: PERRL, No scleral icterus ENT: positive: Dry mucous membranes Respiratory: positive: Chest non-tender, Other (Breath sounds decreased in the superior lobes bilaterally) Abdomen: positive: Non-tender Skin: positive: Warm, Dry, Skin rash (Skin is erythematous bilaterally on LE, congruent with venous stasis dermatitis) Neurologic/Psychiatric: positive: Weakness - Lab Results Fish Bones: 08/25/23 05:33 08/25/23 05:33 ABX Reporting Has patient been on IV antibiotics over the past 48 hours?: No Assessment/Plan - Problem List (1) Respiratory failure with hypoxia Impression: 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 Patient currently has Sp02 of 93% on 5 L of oxygen. She was somnolent upon exam today and hypoven tilating; will order ABG to monitor. There is concern for her trazodone contributing to sedation, to decrease to 25 mg bid. Continue supplemental oxygen and continue to treat COVID-19 infection. Goals for discharge include improvement in somnolence and weaning of supplemental oxygen. Qualifiers: Chronicity: acute Qualified Code(s): J96.01 - Acute respiratory failure with hypoxia (2) COVID-19 Impression: Patient removed IV access multiple times, unable to administer last dose of Remdesivir. Review of literature reveals equivocal outcomes with discontinuing Remdesivir one day early. Will swich to Dexamethasone PO x10 days. Continue isolation precautions. (3) Weakness Impression: Secondary to myotonic dystrophy and COVID-19 infection. Per nursing staff she is unable to eat today due to lack of coordination and weakness. She is living with an agency manager that is unable to resume care until infection has cleared and weakness has improved. Patient will continue to benefit from PT sessions, pending SNF placement vs. home health PT upon discharge. 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 (5) DM type 2 (diabetes mellitus, type 2) Impression: Continue fingerstick checks. She continues to be hyperglycemic on current regimen (preprandial glucose 215 in AM) will increase insulin lispro to 8U. (6) Confusion Impression: Decrease trazodone 25 mg BID. Continue 1:1 monitoring. (7) Constipation Impression: Patient is on nursing bowel regimen, though has not had BM since 08/22. Will start enema today. Qualifiers: Constipation type: chronic idiopathic constipation Qualified Code(s): K59.04 - Chronic idiopathic constipation (8) Leukopenia Impression: Leukopenia and thrombocytopenia improved on last CBC, will continue to monitor with daily CBC. (9) Hypotension Impression: Will discontinue home losartan at this time as she is hypotensive. (10) A-fib Impression: Continue metoprolol for rate control.
[2023-08-26] MEDS ORDERED: CHERRY SYRUP 10 ML UDC PO ONE (12:22)
[2023-08-26] MEDS: dexAMETHasone 4 MG TABLET PO SCH ×2 (12:58→13:09)
[2023-08-26 13:42] LABS: ABG BASE EXCESS 7.3 mmol/L (-2.0-3.0); ABG HCO3 35.5 mmol/L (22.0-26.0); ABG PH 7.32 (7.35-7.45); ABG PO2 77 mmHg (80-100); ABG TCO2 37.6 MMOL/L (21.0-29.0)
[2023-08-26 13:43] LABS: ABG OXYGEN SATURATION 94 % (94-98); ALLEN TEST POSITIVE
[2023-08-26 13:47] LABS: ABG PCO2 70 mmHg (34-45)
[2023-08-26] MEDS: MULTIVITAMIN W/MINERALS TABLET PO SCH (17:30)
[2023-08-26] MEDS: CHLORHEXIDINE GLUCONATE 15 ML UDC PO SCH (21:01)
[2023-08-26] MEDS: INSULIN GLARGINE-YFGN 300 UNIT/3 ML PEN SUBQ SCH (21:03)
[2023-08-27] MEDS: ACETAMINOPHEN 325 MG TABLET PO PRN (04:02)
[2023-08-27 04:50] LABS: HCT - HEMATOCRIT 40.3 % (37.0-47.0); HGB - HEMOGLOBIN 11.5 g/dL (12.0-16.0); LYMPHOCYTES # (AUTO) 2.1 10^3/uL (1.5-3.5); LYMPHOCYTES % (AUTO) 39.9 %; MEAN CORPUSCULAR HGB CONC 28.5 g/dL (32.0-36.0); MEAN CORPUSCULAR VOLUME 87.6 fL (81.0-99.0); MEAN PLATELET VOLUME 10.5 fL (7.9-10.8); MONOCYTES # (AUTO) 0.6 10^3/uL (0.0-1.0); MONOCYTES % (AUTO) 10.3 %; NEUTROPHILS # (AUTO) 2.7 10^3/uL (1.5-6.6); NEUTROPHILS % (AUTO) 49.6 %; PLT - PLATELET COUNT 172 10^3/uL (130-450); RED CELL DISTRIBUTION WIDTH 16.5 % (12.0-15.0); WHITE BLOOD COUNT 5.4 x10^3/uL (4.8-10.8)
[2023-08-27 04:56] LABS: CALCIUM, IONIZED 1.16 mmol/L (1.15-1.33); VBG PH 7.455 (7.31-7.41)
[2023-08-27 05:07] LABS: CREATININE 0.4 mg/dL (0.6-1.3); MAGNESIUM 1.5 mg/dL (1.7-2.3); PHOSPHORUS 1.5 mg/dL (2.5-5.0); POTASSIUM 3.4 mmol/L (3.5-4.5)
[2023-08-27] MEDS ORDERED: MAGNESIUM OXIDE 400 MG TABLET PO ONE (08:13)
[2023-08-27] MEDS: traZODone 50 MG TABLET PO SCH ×2 (08:33→21:04)
[2023-08-27] MEDS: GABAPENTIN 300 MG CAPSULE PO SCH (08:33)
[2023-08-27] MEDS: CHLORHEXIDINE GLUCONATE 15 ML UDC PO SCH ×2 (08:33→21:05)
[2023-08-27] MEDS: POTASSIUM CHLORIDE 20 MEQ TABLET PO SCH ×2 (08:33→12:18)
[2023-08-27] MEDS: guaiFENesin 600 MG TABLET PO SCH ×2 (08:34→21:04)
[2023-08-27] MEDS: ENOXAPARIN 40 MG/0.4 ML SYRINGE SUBQ SCH (08:34)
[2023-08-27] MEDS: MULTIVITAMIN W/MINERALS TABLET PO SCH (08:34)
[2023-08-27] MEDS: METOPROLOL SUCCINATE 25 MG TABLET PO SCH ×2 (08:34→21:04)
[2023-08-27] MEDS: dexAMETHasone 4 MG TABLET PO SCH (08:34)
[2023-08-27] MEDS: INSULIN LISPRO 300 UNIT/3 ML PEN SUBQ SCH ×4 (08:35→21:05)
[2023-08-27] MEDS: MAGNESIUM OXIDE 400 MG TABLET PO SCH (08:35)
[2023-08-27] MEDS: polyethylene glycoL 3350 17 GM PACKET PO SCH (08:35)
--- NOTE | 2023-08-27 09:20 | PROVIDER PROGRESS NOTE ---
Subjective - Prog Note Date Prog Note Date: 08/27/23 Prog Note Time: 09:17 - Subjective Pt reports feeling: Improved Subjective: Patient is currently in ICU after transfer from [facility] due to hypercapnia. Patient is sitting upright, alert and conversational during assessment, receiving oxygen via nasal cannula. Denies any physical pain or dysphagia. She states she feels close to her baseline at home today. She notes she is able to complete ADLs at home. 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 Current Medications - Current Medications Current Medications: Active Medications Acetaminophen (Acetaminophen 325 Mg Tablet) 650 mg PO Q4HR PRN PRN Reason: Pain 1 to 4, or Fever Last Admin: 08/27/23 04:02 Dose: 650 mg Chlorhexidine Gluconate (Chlorhexidine Gluconate 15 Ml Udc) 15 ml PO BID [facility] Last Admin: 08/27/23 08:33 Dose: 15 ml Dexamethasone (Dexamethasone 4 Mg Tablet) 6 mg PO DAILY [facility] Last Admin: 08/27/23 08:34 Dose: 6 mg Enoxaparin Sodium (Enoxaparin 40 Mg/0.4 Ml Syringe) 40 mg SUBQ DAILY [facility] Last Admin: 08/27/23 08:34 Dose: 40 mg Gabapentin (Gabapentin 300 Mg Capsule) 300 mg PO DAILY [facility] Last Admin: 08/27/23 08:33 Dose: 300 mg Guaifenesin (Guaifenesin 600 Mg Tablet) 600 mg PO BID [facility] Last Admin: 08/27/23 08:34 Dose: 600 mg Insulin Glargine-yfgn (Insulin Glargine-Yfgn 300 Unit/3 Ml Pen) 8 unit SUBQ QPM [facility] Last Admin: 08/26/23 21:03 Dose: 8 unit Insulin Human Lispro (Insulin Lispro 300 Unit/3 Ml Pen) 2 - 10 unit SUBQ 0800,1200,1700,2100 [facility]; Protocol Last Admin: 08/27/23 08:35 Dose: Not Given Magnesium Oxide (Magnesium Oxide 400 Mg Tablet) 400 mg PO DAILYWM [facility] Last Admin: 08/27/23 08:35 Dose: 400 mg Metoprolol Succinate (Metoprolol Succinate 25 Mg Tablet) 25 mg PO BID [facility] Last Admin: 08/27/23 08:34 Dose: 25 mg Multivitamins/Minerals (Multivitamin W/Minerals Tablet) 1 tab PO DAILYWM [facility] Last Admin: 08/27/23 08:34 Dose: 1 tab Polyethylene Glycol (Polyethylene Glycol 3350 17 Gm Packet) 17 gm PO DAILY [facility] Last Admin: 08/27/23 08:35 Dose: 17 gm Potassium Chloride (Potassium Chloride 20 Meq Tablet) 20 meq PO Q2H [facility]; Protocol Stop: 08/27/23 11:01 Last Admin: 08/27/23 08:33 Dose: 20 meq Trazodone HCl (Trazodone 50 Mg Tablet) 25 mg PO BID [facility] Last Admin: 08/27/23 08:33 Dose: 25 mg Simvastatin [Zocor] 10 mg PO DAILY 06/09/23 Tocopheryl [Vitamin E] 400 unit PO DAILY 06/10/23 Vitamin B Complex 1 each PO DAILY 06/10/23 Gabapentin [Neurontin] 300 mg PO DAILY 08/23/23 Liraglutide [Victoza 2-Pal] 1.2 mg SUBQ DAILY PM 08/23/23 Losartan Potassium 12.5 mg PO DAILY 08/23/23 traZODone [Desyrel] 50 mg PO BID 08/23/23 Insulin Glargine-Yfgn [Semglee] 20 unit SUBQ BID 08/25/23 Insulin Lispro [Humalog Kwikpen U-100] 6 unit SUBQ TIDWM 08/25/23 Objective - Vital Signs/Intake & Output Vital Signs: Vital Signs Temp Pulse Resp BP Pulse Ox O2 Flow Rate 08/27/23 08:36 4 08/27/23 08:00 36.8 C 66 10 L 109/66 92 5 08/27/23 07:00 76 16 105/55 L 92 5 08/27/23 06:00 72 16 116/77 96 5 Temp Pulse Resp BP Pulse Ox O2 Flow Rate 36.8 C 74 23 106/54 L 93 2 08/27/23 08:00 08/27/23 10:54 08/27/23 10:54 08/27/23 10:54 08/27/23 10:54 08/27/23 10:54 Intake & Output: Intake & Output 08/24/23 08/25/23 08/26/23 08/27/23 23:59 23:59 23:59 23:59 Intake Total 2878.334 2848.300 2121.333 340 Output Total 325 1350 1100 1350 Balance 2553.334 3884.652 9447.333 -1010 - Objective General Appearance: positive: No acute distress, Alert (Patient is alert, sitting up, head upright, speech with intact sentance structure.) Eyes Bilateral: positive: Normal inspection, Conjunctivae nml, No scleral icterus Respiratory: positive: Chest non-tender, No respiratory distress, Other (Decreased respiratory effort, decreased breath sounds bilaterally) Cardiovascular: positive: No murmur, No gallop, Irregularly irregular Abdomen: positive: Non-tender Skin: positive: Warm, Dry, Skin rash (Skin on bilateral LE are erythematous, congruent with venous stasis dermatits. Pain with palpation around ankles bilaterally.) Extremities: positive: Pedal edema (trace edema in LE bilaterally) Neurologic/Psychiatric: positive: Oriented x3, Weakness, Slurred/abnml speech Reflexes: Bicep (R): 0 (R Brachoradialis reflex 0), Knee (R): 1+ - Lab Results Fish Bones: 08/27/23 04:38 08/27/23 04:38 Other Labs: Lab Results x24hrs 08/27/23 08/27/23 08/27/23 Range/Units 04:38 04:38 04:38 WBC (4.8-10.8) x10^3/uL RBC (4.20-5.40) 10^6/uL Hgb (12.0-16.0) g/dL Hct (37.0-47.0) % MCV (81.0-99.0) fL MCH (27.0-31.0) pg MCHC (32.0-36.0) g/dL RDW (12.0-15.0) % Plt Count (130-450) 10^3/uL MPV (7.9-10.8) fL Neut # (Auto) (1.5-6.6) 10^3/uL Lymph # (Auto) (1.5-3.5) 10^3/uL [place] # (Auto) (0.0-1.0) 10^3/uL Eos # (Auto) (0.0-0.7) 10^3/uL Baso # (Auto) (0.0-0.1) 10^3/uL Absolute Nucleated RBC x10^3/uL Nucleated RBC % /100WBC Bld Gas Analysis Time Sample Site ABG pH (7.35-7.45) ABG pCO2 (34-45) mmHg ABG pO2 (80-100) mmHg ABG HCO3 (22.0-26.0) mmol/L ABG Total CO2 (21.0-29.0) MMOL/L ABG O2 Saturation (94-98) % ABG Base Excess (-2.0-3.0) mmol/L Davie Test VBG pH 7.455 H (7.31-7.41) Ionized Calcium 1.16 (1.15-1.33) mmol/L O2 Delivery Device O2 Liters/Min LPM Sodium 144 (135-145) mmol/L Potassium 3.4 L (3.5-4.5) mmol/L Chloride 104 (101-111) mmol/L Carbon Dioxide 37 H (21-32) mmol/L Anion Gap 3.0 L (6-13) BUN 7 (6-20) mg/dL Creatinine 0.4 L (0.6-1.3) mg/dL Estimated GFR (MDRD) 167 (>89) Glucose 127 H (74-104) mg/dL Calcium 9.0 (8.5-10.3) mg/dL Phosphorus 1.5 L (2.5-5.0) mg/dL Magnesium 1.5 L (1.7-2.3) mg/dL 08/27/23 08/26/23 Range/Units 04:38 13:30 WBC 5.4 (4.8-10.8) x10^3/uL RBC 4.60 (4.20-5.40) 10^6/uL Hgb 11.5 L (12.0-16.0) g/dL Hct 40.3 (37.0-47.0) % MCV 87.6 (81.0-99.0) fL MCH 25.0 L (27.0-31.0) pg MCHC 28.5 L (32.0-36.0) g/dL RDW 16.5 H (12.0-15.0) % Plt Count 172 (130-450) 10^3/uL MPV 10.5 (7.9-10.8) fL Neut # (Auto) 2.7 (1.5-6.6) 10^3/uL Lymph # (Auto) 2.1 (1.5-3.5) 10^3/uL [place] # (Auto) 0.6 (0.0-1.0) 10^3/uL Eos # (Auto) 0.0 (0.0-0.7) 10^3/uL Baso # (Auto) 0.0 (0.0-0.1) 10^3/uL Absolute Nucleated RBC 0.00 x10^3/uL Nucleated RBC % 0.0 /100WBC Bld Gas Analysis Time 1330 Sample Site LEFT RADIAL ABG pH 7.32 L (7.35-7.45) ABG pCO2 70 H* (34-45) mmHg ABG pO2 77 L (80-100) mmHg ABG HCO3 35.5 H (22.0-26.0) mmol/L ABG Total CO2 37.6 H (21.0-29.0) MMOL/L ABG O2 Saturation 94 (94-98) % ABG Base Excess 7.3 H (-2.0-3.0) mmol/L Davie Test POSITIVE VBG pH (7.31-7.41) Ionized Calcium (1.15-1.33) mmol/L O2 Delivery Device NASAL CANNULA O2 Liters/Min 5.00 LPM Sodium (135-145) mmol/L Potassium (3.5-4.5) mmol/L Chloride (101-111) mmol/L Carbon Dioxide (21-32) mmol/L Anion Gap (6-13) BUN (6-20) mg/dL Creatinine (0.6-1.3) mg/dL Estimated GFR (MDRD) (>89) Glucose (74-104) mg/dL Calcium (8.5-10.3) mg/dL Phosphorus (2.5-5.0) mg/dL Magnesium (1.7-2.3) mg/dL Assessment/Plan - Problem List (1) Respiratory failure with hypoxia Impression: And hypercapnia. 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 Her clinical presentation was significantly improved today; she was conversational, alert and cooperative with examination. She notes that this is more congruent with her presentation at home. Yesterday her presentation improved upon admission to the ICU and she did not require BiPAP. Will discontinue BiPAP protocol and place her back on MedSurg. Sp02 today is 93% on 2L oxygen. Continue supplemental oxygen at this time and treatment of COVID-19 infection. Her primary barrier to discharge at this time is pending SNF placement, she was accepted to [facility] though is unable to be admitted there until 09/02 due to their COVID policy. Qualifiers: Chronicity: acute Qualified Code(s): J96.01 - Acute respiratory failure with hypoxia (2) COVID-19 Impression: she has completed Remdesivir regimen. Continue dexamethasone PO until 09/01/23. Continue isolation precautions. (3) Weakness Impression: Much improved today, able to sit up in chair on her own. Speech and truncal sta bility is significantly improved. Secondary to myotonic dystrophy and COVID-19 infection. Continue PT/OT. Plan to discharge to SNF for continued rehab. 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 (5) DM type 2 (diabetes mellitus, type 2) Impression: Her glucose appears improved today at 127 after increasing insulin lantus. Will continue to monitor for hyperglycemia with steroid use and adjust as necessary after decadron course. Continue to monitor with fingerstick checks. (6) Confusion Impression: Significantly improved today, continue to monitor. (7) Constipation Impression: No BM since 08/22. On nursing bowel regimen. Enema to be administered today. Qualifiers: Constipation type: chronic idiopathic constipation Qualified Code(s): K59.04 - Chronic idiopathic constipation (8) Leukopenia Impression: Leukopenia, thrombocytopenia continue to improve today, likely due to improvement of COVID-19 infection. Continue daily CBC. (9) Hypotension Impression: Holding home losartan at this time. (10) A-fib Impression: Telemtry shows she is consistently in a fib. Continue metoprolol for rate control.
[2023-08-27 12:48] LABS: ESTIMATED AVERAGE GLUCOSE 174 mg/dL (70-100); HEMOGLOBIN A1c% 7.7 % (4.27-6.07)
[2023-08-27] MEDS ORDERED: POTASSIUM PHOSPHATE 21 MMOL in SODIUM CHLORIDE 0.9% 250 ML IV ONE (13:15)
[2023-08-27] MEDS ORDERED: GLYCERIN ADULT SUPP PR ONE (16:05)
[2023-08-27 19:25] LABS: MAGNESIUM 1.6 mg/dL (1.7-2.3); PHOSPHORUS 3.9 mg/dL (2.5-5.0); POTASSIUM 4.4 mmol/L (3.5-4.5)
[2023-08-27] MEDS: INSULIN GLARGINE-YFGN 300 UNIT/3 ML PEN SUBQ SCH (21:05)
[2023-08-28] MEDS: ACETAMINOPHEN 325 MG TABLET PO PRN ×3 (00:40→21:30)
[2023-08-28] MEDS ORDERED: HALOPERIDOL 5 MG/ML VIAL IVP ONE (05:46)
[2023-08-28 07:54] LABS: HCT - HEMATOCRIT 43.3 % (37.0-47.0); HGB - HEMOGLOBIN 12.8 g/dL (12.0-16.0); LYMPHOCYTES # (AUTO) 1.1 10^3/uL (1.5-3.5); LYMPHOCYTES % (AUTO) 22.2 %; MEAN CORPUSCULAR HEMOGLOBIN 25.8 pg (27.0-31.0); MEAN CORPUSCULAR HGB CONC 29.6 g/dL (32.0-36.0); MEAN CORPUSCULAR VOLUME 87.1 fL (81.0-99.0); MEAN PLATELET VOLUME 9.9 fL (7.9-10.8); MONOCYTES # (AUTO) 0.5 10^3/uL (0.0-1.0); MONOCYTES % (AUTO) 11.2 %; NEUTROPHILS # (AUTO) 3.1 10^3/uL (1.5-6.6); NEUTROPHILS % (AUTO) 66.4 %; PLT - PLATELET COUNT 194 10^3/uL (130-450); RED BLOOD COUNT 4.97 10^6/uL (4.20-5.40); RED CELL DISTRIBUTION WIDTH 16.3 % (12.0-15.0); WHITE BLOOD COUNT 4.7 x10^3/uL (4.8-10.8)
[2023-08-28 08:29] LABS: CALCIUM 9.3 mg/dL (8.5-10.3); CREATININE 0.4 mg/dL (0.6-1.3)
[2023-08-28] MEDS: INSULIN LISPRO 300 UNIT/3 ML PEN SUBQ SCH ×4 (08:30→20:19)
[2023-08-28] MEDS: MAGNESIUM OXIDE 400 MG TABLET PO SCH (08:33)
[2023-08-28] MEDS: polyethylene glycoL 3350 17 GM PACKET PO SCH (11:05)
[2023-08-28] MEDS: ENOXAPARIN 40 MG/0.4 ML SYRINGE SUBQ SCH (11:05)
[2023-08-28] MEDS: CHLORHEXIDINE GLUCONATE 15 ML UDC PO SCH ×2 (11:05→20:16)
[2023-08-28] MEDS: traZODone 50 MG TABLET PO SCH ×2 (11:06→20:15)
[2023-08-28] MEDS: guaiFENesin 600 MG TABLET PO SCH ×2 (11:06→20:14)
[2023-08-28] MEDS: MULTIVITAMIN W/MINERALS TABLET PO SCH (11:07)
[2023-08-28] MEDS: GABAPENTIN 300 MG CAPSULE PO SCH (11:07)
[2023-08-28] MEDS: dexAMETHasone 4 MG TABLET PO SCH (11:07)
[2023-08-28] MEDS: METOPROLOL SUCCINATE 25 MG TABLET PO SCH ×2 (11:12→20:14)
[2023-08-28] MEDS: INSULIN GLARGINE-YFGN 300 UNIT/3 ML PEN SUBQ SCH (20:17)
--- NOTE | 2023-08-28 21:22 | PROVIDER PROGRESS NOTE ---
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 Continue supplemental O2, treat the underlying COVID infection Remdesivir completed (2) COVID-19 Plan: Remdesivir completed Continue Decadron Isolation precautions are ordered (3) Confusion 1:1 monitoring. (4) Myotonic Dystrophy Continue supportive care (5) Leukopenia Continue to monitor CBC (6) DM Type 2 Plan: Continue diabetic diet, fingerstick checks, SS Insiulin coverage, Hypoglycemia protocol (7) A fib Plan: Continue metoprolol for rate control (8) LBBB This is chronic for her CODE Status: DNR - Current Meds Current Meds: Current Medications Generic Name Dose Route Start Last Admin Trade Name Freq PRN Reason Stop Dose Admin Acetaminophen 650 mg 08/23/23 01:54 08/28/23 11:06 Acetaminophen 325 Mg Tablet PO 650 mg Q4HR PRN Administration Pain 1 to 4, or Fever Chlorhexidine Gluconate 15 ml 08/26/23 21:00 08/28/23 20:16 Chlorhexidine Gluconate 15 Ml Udc PO 15 ml BID PEREZ Administration Dexamethasone 6 mg 08/26/23 13:00 08/28/23 11:07 Dexamethasone 4 Mg Tablet PO 6 mg DAILY PEREZ Administration Enoxaparin Sodium 40 mg 08/23/23 09:00 08/28/23 11:05 Enoxaparin 40 Mg/0.4 Ml Syringe SUBQ 40 mg DAILY PEREZ Administration Gabapentin 300 mg 08/24/23 09:00 08/28/23 11:07 Gabapentin 300 Mg Capsule PO 300 mg DAILY PEREZ Administration Guaifenesin 600 mg 08/23/23 21:00 08/28/23 20:14 Guaifenesin 600 Mg Tablet PO 600 mg BID PEREZ Administration Insulin Human Lispro 2 - 10 unit 08/25/23 17:00 08/28/23 20:19 Insulin Lispro 300 Unit/3 Ml Pen SUBQ 10 unit 0800,1200,1700,2100 PEREZ Administration Protocol Magnesium Oxide 400 mg 08/25/23 20:00 08/28/23 08:33 Magnesium Oxide 400 Mg Tablet PO 400 mg DAILYWM PEREZ Administration Metoprolol Succinate 25 mg 08/24/23 21:00 08/28/23 20:14 Metoprolol Succinate 25 Mg Tablet PO 25 mg BID PEREZ Administration Multivitamins/Minerals 1 tab 08/26/23 17:00 08/28/23 11:07 Multivitamin W/Minerals Tablet PO 1 tab DAILYWM PEREZ Administration Polyethylene Glycol 17 gm 08/26/23 09:00 08/28/23 11:05 Polyethylene Glycol 3350 17 Gm Packet PO 17 gm DAILY PEREZ Administration Trazodone HCl 25 mg 08/26/23 21:00 08/28/23 20:15 Trazodone 50 Mg Tablet PO 25 mg BID PEREZ Administration - Lab Result Fish Bone Diagrams: 08/28/23 07:45 08/28/23 07:45 - Additional Planning My Orders: My Active Orders 08/29/23 21:00 Insulin Glargine-Yfgn [Semglee] 20 unit SUBQ QPM Subjective - Subjective Patient Reports: Other (Alert. Dyspnea improved but not resolved. Denies chest pain, nausea, vomiting. No other complaints at this time.) Objective Vital Signs: Vital Signs - 24 hr 08/27/23 08/28/23 08/28/23 23:49 07:28 07:49 Temperature 36.7 C 36.6 C Heart Rate [ 81 Brachial] Respiratory 20 20 Rate Blood Pressure 119/84 H 110/62 [Right Brachial artery] O2 Saturation 94 95 If not protocol 3 2 3 : Oxygen Flow, liters/minute 08/28/23 17:00 Temperature 36.6 C Heart Rate [ 85 Brachial] Respiratory 18 Rate Blood Pressure 119/67 [Right Brachial artery] O2 Saturation 92 If not protocol 3 : Oxygen Flow, liters/minute Oxygen O2 Source Nasal cannula I&O (Last 24 Hrs): Intake and Output Totals x24h 08/26/23 08/27/23 08/28/23 23:59 23:59 23:59 Intake Total 2121.333 1517 820 Output Total 1100 1350 Balance 1021.333 167 820 General: Alert, Oriented x3, No acute distress HEENT: Atraumatic, PERRLA, EOMI Neck: Supple, No JVD, No thyromegaly Lymphatic: no adenopathy Neuro: Alert, Non Focal Cardiovascular: Regular rate, Normal S1, Normal S2, No murmurs Respiratory: Chest non-tender, No respiratory distress, Other (No wheezing. No crackles.) Abdomen: Normal bowel sounds, Soft, No tenderness Extremities: No clubbing, No cyanosis Skin: No rashes - Results Results: Laboratory Results WBC 4.7 x10^3/uL (4.8-10.8) L 08/28/23 07:45 RBC 4.97 10^6/uL (4.20-5.40) 08/28/23 07:45 Hgb 12.8 g/dL (12.0-16.0) 08/28/23 07:45 Hct 43.3 % (37.0-47.0) 08/28/23 07:45 MCV 87.1 fL (81.0-99.0) 08/28/23 07:45 MCH 25.8 pg (27.0-31.0) L 08/28/23 07:45 MCHC 29.6 g/dL (32.0-36.0) L 08/28/23 07:45 RDW 16.3 % (12.0-15.0) H 08/28/23 07:45 Plt Count 194 10^3/uL (130-450) 08/28/23 07:45 MPV 9.9 fL (7.9-10.8) 08/28/23 07:45 Neut # (Auto) 3.1 10^3/uL (1.5-6.6) 08/28/23 07:45 Lymph # (Auto) 1.1 10^3/uL (1.5-3.5) L 08/28/23 07:45 [place] # (Auto) 0.5 10^3/uL (0.0-1.0) 08/28/23 07:45 Eos # (Auto) 0.0 10^3/uL (0.0-0.7) 08/28/23 07:45 Baso # (Auto) 0.0 10^3/uL (0.0-0.1) 08/28/23 07:45 Absolute Nucleated RBC 0.00 x10^3/uL 08/28/23 07:45 Total Counted 100 08/25/23 05:33 Band Neuts % (Manual) 0 % (0-10) 08/25/23 05:33 Reactive Lymphs % (Man) 10 % 08/24/23 05:39 Abnorm Lymph % (Manual) 0 % 08/25/23 05:33 Nucleated RBC % 0.0 /100WBC 08/28/23 07:45 Neutrophils # (Manual) 2.7 10^3/uL (1.5-6.6) 08/25/23 05:33 Lymphocytes # (Manual) 0.9 10^3/uL (1.5-3.5) L 08/25/23 05:33 Monocytes # (Manual) 0.4 10^3/uL (0.0-1.0) 08/25/23 05:33 Eosinophils # (Manual) 0.0 10^3/uL (0-0.7) 08/25/23 05:33 Basophils # (Manual) 0.0 10^3/uL (0-0.1) 08/25/23 05:33 Differential Comment MANUAL DIFFERENTIAL 08/25/23 05:33 Manual Slide Review Indicated 08/22/23 18:20 Platelet Estimate NORMAL (130-450,000) (NORMAL) 08/25/23 05:33 Platelet Morphology NORMAL APPEARANCE (NORMAL) 08/24/23 05:39 RBC Morph Micro Appear NORMAL APPEARANCE (NORMAL) 08/25/23 05:33 Bld Gas Analysis Time 1330 08/26/23 13:30 Sample Site LEFT RADIAL 08/26/23 13:30 ABG pH 7.32 (7.35-7.45) L 08/26/23 13:30 ABG pCO2 70 mmHg (34-45) H* 08/26/23 13:30 ABG pO2 77 mmHg (80-100) L 08/26/23 13:30 ABG HCO3 35.5 mmol/L (22.0-26.0) H 08/26/23 13:30 ABG Total CO2 37.6 MMOL/L (21.0-29.0) H 08/26/23 13:30 ABG O2 Saturation 94 % (94-98) 08/26/23 13:30 ABG Base Excess 7.3 mmol/L (-2.0-3.0) H 08/26/23 13:30 [place] Test POSITIVE 08/26/23 13:30 VBG pH 7.455 (7.31-7.41) H 08/27/23 04:38 Ionized Calcium 1.16 mmol/L (1.15-1.33) 08/27/23 04:38 O2 Delivery Device NASAL CANNULA 08/26/23 13:30 O2 Liters/Min 5.00 LPM 08/26/23 13:30 Sodium 143 mmol/L (135-145) 08/28/23 07:45 Potassium 4.0 mmol/L (3.5-4.5) 08/28/23 07:45 Chloride 101 mmol/L (101-111) 08/28/23 07:45 Carbon Dioxide 39 mmol/L (21-32) H* 08/28/23 07:45 Anion Gap 3.0 (6-13) L 08/28/23 07:45 BUN 7 mg/dL (6-20) 08/28/23 07:45 Creatinine 0.4 mg/dL (0.6-1.3) L 08/28/23 07:45 Estimated GFR (MDRD) 167 (>89) 08/28/23 07:45 Glucose 226 mg/dL (74-104) H 08/28/23 07:45 Estimat Average Glucose 174 mg/dL (70-100) H 08/27/23 04:38 Hemoglobin A1c % 7.7 % (4.27-6.07) H 08/27/23 04:38 Lactic Acid 0.7 mmol/L (0.5-2.2) 08/22/23 18:35 Calcium 9.3 mg/dL (8.5-10.3) 08/28/23 07:45 Phosphorus 3.9 mg/dL (2.5-5.0) 08/27/23 19:04 Magnesium 1.8 mg/dL (1.7-2.3) 08/28/23 08:00 Total Bilirubin 0.6 mg/dL (0.2-1.0) 08/22/23 18:20 AST 29 IU/L (10-42) 08/22/23 18:20 ALT 11 IU/L (10-60) 08/22/23 18:20 Alkaline Phosphatase 61 IU/L (42-121) 08/22/23 18:20 Troponin I High Sens 58.3 ng/L (2.3-14.8) H* 08/22/23 21:19 B-Natriuretic Peptide 62 pg/mL (5-100) 08/22/23 18:20 Total Protein 6.2 g/dL (6.4-8.9) L 08/22/23 18:20 Albumin 3.4 g/dL (3.2-5.5) 08/22/23 18:20 Globulin 2.8 g/dL (2.1-4.2) 08/22/23 18:20 Albumin/Globulin Ratio 1.2 (1.0-2.2) 08/22/23 18:20 Lipase 38 U/L (11-82) 08/22/23 18:20 Urine Color DARK YELLOW 08/22/23 23:03 Urine Clarity CLEAR (CLEAR) 08/22/23 23:03 Urine pH 6.0 PH (5.0-7.5) 08/22/23 23:03 Ur Specific [place] 1.020 (1.002-1.030) 08/22/23 23:03 Urine Protein TRACE mg/dL (NEGATIVE) 08/22/23 23:03 Urine Glucose (UA) NEGATIVE mg/dL (NEGATIVE) 08/22/23 23:03 Urine Ketones NEGATIVE mg/dL (NEGATIVE) 08/22/23 23:03 Urine Occult Blood NEGATIVE (NEGATIVE) 08/22/23 23:03 Urine Nitrite NEGATIVE (NEGATIVE) 08/22/23 23:03 Urine Bilirubin NEGATIVE (NEGATIVE) 08/22/23 23:03 Urine Urobilinogen 1 (NORMAL) E.U./dL (NORMAL) 08/22/23 23:03 Ur Leukocyte Esterase NEGATIVE (NEGATIVE) 08/22/23 23:03 Ur Microscopic Review NOT INDICATED 08/22/23 23:03 Urine Culture Comments NOT INDICATED 08/22/23 23:03 Nasal Adenovirus (PCR) NOT DETECTED 08/22/23 21:50 Nasal B. parapertussis DNA (PCR) NOT DETECTED 08/22/23 21:50 Nasal Coronavir 229E PCR NOT DETECTED 08/22/23 21:50 Nasal Coronavir HKU1 PCR NOT DETECTED 08/22/23 21:50 Nasal Coronavir NL63 PCR NOT DETECTED 08/22/23 21:50 Nasal Coronavir OC43 PCR NOT DETECTED 08/22/23 21:50 Nasal Enterovir/Rhinovir PCR NOT DETECTED 08/22/23 21:50 Nasal Influenza B PCR NOT DETECTED 08/22/23 21:50 Nasal Influenza A PCR NOT DETECTED 08/22/23 21:50 Nasal Parainfluen 1 PCR NOT DETECTED 08/22/23 21:50 Nasal Parainfluen 2 PCR NOT DETECTED 08/22/23 21:50 Nasal Parainfluen 3 PCR NOT DETECTED 08/22/23 21:50 Nasal Parainfluen 4 PCR NOT DETECTED 08/22/23 21:50 Nasal RSV (PCR) NOT DETECTED 08/22/23 21:50 Nasal B.pertussis DNA PCR NOT DETECTED 08/22/23 21:50 Nasal C.pneumoniae (PCR) NOT DETECTED 08/22/23 21:50 Amish Human Metapneumo PCR NOT DETECTED 08/22/23 21:50 Nasal M.pneumoniae (PCR) NOT DETECTED 08/22/23 21:50 Nasal SARS-CoV-2 (PCR) DETECTED A 08/22/23 21:50 - Procedures Procedures: Procedures INSERTION OF INFUSION DEV INTO SUP VENA CAVA, PERC APPROACH (06/09/23) ABX Reporting Has patient been on IV antibiotics over the past 48 hours?: No Current Medications - Current Medications Current Medications: Active Medications Acetaminophen (Acetaminophen 325 Mg Tablet) 650 mg PO Q4HR PRN PRN Reason: Pain 1 to 4, or Fever Last Admin: 08/28/23 11:06 Dose: 650 mg Chlorhexidine Gluconate (Chlorhexidine Gluconate 15 Ml Udc) 15 ml PO BID [facility] Last Admin: 08/28/23 20:16 Dose: 15 ml Dexamethasone (Dexamethasone 4 Mg Tablet) 6 mg PO DAILY [facility] Last Admin: 08/28/23 11:07 Dose: 6 mg Enoxaparin Sodium (Enoxaparin 40 Mg/0.4 Ml Syringe) 40 mg SUBQ DAILY [facility] Last Admin: 08/28/23 11:05 Dose: 40 mg Gabapentin (Gabapentin 300 Mg Capsule) 300 mg PO DAILY [facility] Last Admin: 08/28/23 11:07 Dose: 300 mg Guaifenesin (Guaifenesin 600 Mg Tablet) 600 mg PO BID [facility] Last Admin: 08/28/23 20:14 Dose: 600 mg Insulin Glargine-yfgn (Insulin Glargine-Yfgn 300 Unit/3 Ml Pen) 20 unit SUBQ QPM [facility] Insulin Human Lispro (Insulin Lispro 300 Unit/3 Ml Pen) 2 - 10 unit SUBQ 0800,1200,1700,2100 [facility]; Protocol Last Admin: 08/28/23 20:19 Dose: 10 unit Magnesium Oxide (Magnesium Oxide 400 Mg Tablet) 400 mg PO DAILYWM [facility] Last Admin: 08/28/23 08:33 Dose: 400 mg Metoprolol Succinate (Metoprolol Succinate 25 Mg Tablet) 25 mg PO BID [facility] Last Admin: 08/28/23 20:14 Dose: 25 mg Multivitamins/Minerals (Multivitamin W/Minerals Tablet) 1 tab PO DAILYWM [facility] Last Admin: 08/28/23 11:07 Dose: 1 tab Polyethylene Glycol (Polyethylene Glycol 3350 17 Gm Packet) 17 gm PO DAILY [facility] Last Admin: 08/28/23 11:05 Dose: 17 gm Trazodone HCl (Trazodone 50 Mg Tablet) 25 mg PO BID [facility] Last Admin: 08/28/23 20:15 Dose: 25 mg Simvastatin [Zocor] 10 mg PO DAILY 06/09/23 Tocopheryl [Vitamin E] 400 unit PO DAILY 06/10/23 Vitamin B Complex 1 each PO DAILY 06/10/23 Gabapentin [Neurontin] 300 mg PO DAILY 08/23/23 Liraglutide [Victoza 2-Pal] 1.2 mg SUBQ DAILY PM 08/23/23 Losartan Potassium 12.5 mg PO DAILY 08/23/23 traZODone [Desyrel] 50 mg PO BID 08/23/23 Insulin Glargine-Yfgn [Semglee] 20 unit SUBQ BID 08/25/23 Insulin Lispro [Humalog Kwikpen U-100] 6 unit SUBQ TIDWM 08/25/23
[2023-08-29] MEDS: ACETAMINOPHEN 325 MG TABLET PO PRN (03:36)
[2023-08-29 06:11] LABS: HCT - HEMATOCRIT 43.2 % (37.0-47.0); HGB - HEMOGLOBIN 12.7 g/dL (12.0-16.0); LYMPHOCYTES % (AUTO) 19.4 %; MEAN CORPUSCULAR HEMOGLOBIN 25.2 pg (27.0-31.0); MEAN CORPUSCULAR HGB CONC 29.4 g/dL (32.0-36.0); MEAN CORPUSCULAR VOLUME 85.7 fL (81.0-99.0); MEAN PLATELET VOLUME 10.7 fL (7.9-10.8); MONOCYTES # (AUTO) 0.4 10^3/uL (0.0-1.0); NEUTROPHILS # (AUTO) 3.7 10^3/uL (1.5-6.6); NEUTROPHILS % (AUTO) 72.4 %; PLT - PLATELET COUNT 279 10^3/uL (130-450); RED BLOOD COUNT 5.04 10^6/uL (4.20-5.40); RED CELL DISTRIBUTION WIDTH 16.1 % (12.0-15.0); WHITE BLOOD COUNT 5.1 x10^3/uL (4.8-10.8)
[2023-08-29 06:34] LABS: CALCIUM 9.8 mg/dL (8.5-10.3); CREATININE 0.4 mg/dL (0.6-1.3); POTASSIUM 3.9 mmol/L (3.5-4.5)
[2023-08-29] MEDS: dexAMETHasone 4 MG TABLET PO SCH (09:00)
[2023-08-29] MEDS: INSULIN LISPRO 300 UNIT/3 ML PEN SUBQ SCH ×4 (09:01→20:54)
[2023-08-29] MEDS: GABAPENTIN 300 MG CAPSULE PO SCH (09:02)
[2023-08-29] MEDS: guaiFENesin 600 MG TABLET PO SCH ×2 (09:02→20:53)
[2023-08-29] MEDS: CHLORHEXIDINE GLUCONATE 15 ML UDC PO SCH ×2 (09:02→20:53)
[2023-08-29] MEDS: polyethylene glycoL 3350 17 GM PACKET PO SCH (09:02)
[2023-08-29] MEDS: MAGNESIUM OXIDE 400 MG TABLET PO SCH (09:02)
[2023-08-29] MEDS: ENOXAPARIN 40 MG/0.4 ML SYRINGE SUBQ SCH (09:02)
[2023-08-29] MEDS: METOPROLOL SUCCINATE 25 MG TABLET PO SCH ×2 (09:02→20:52)
[2023-08-29] MEDS: MULTIVITAMIN W/MINERALS TABLET PO SCH (09:02)
[2023-08-29] MEDS: traZODone 50 MG TABLET PO SCH (20:53)
[2023-08-29] MEDS: INSULIN GLARGINE-YFGN 300 UNIT/3 ML PEN SUBQ SCH (20:53)
--- NOTE | 2023-08-29 21:04 | PROVIDER PROGRESS NOTE ---
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 Continue supplemental O2, treat the underlying COVID infection Remdesivir completed (2) COVID-19 Plan: Remdesivir completed Continue Decadron for total of 10 days or until discharge Isolation precautions are ordered (3) Confusion 1:1 monitoring. Patient appears to be doing better at this time. Consider stopping 1:1 monitoring. (4) Myotonic Dystrophy Continue supportive care (5) Leukopenia Continue to monitor CBC (6) DM Type 2 Plan: Continue diabetic diet, fingerstick checks, SS Insiulin coverage, Hypoglycemia protocol (7) A fib Plan: Continue metoprolol for rate control (8) LBBB This is chronic for her CODE Status: DNR - Current Meds Current Meds: Current Medications Generic Name Dose Route Start Last Admin Trade Name Freq PRN Reason Stop Dose Admin Acetaminophen 650 mg 08/23/23 01:54 08/29/23 03:36 Acetaminophen 325 Mg Tablet PO 650 mg Q4HR PRN Administration Pain 1 to 4, or Fever Chlorhexidine Gluconate 15 ml 08/26/23 21:00 08/29/23 20:53 Chlorhexidine Gluconate 15 Ml Udc PO 15 ml BID PEREZ Administration Dexamethasone 6 mg 08/26/23 13:00 08/29/23 09:00 Dexamethasone 4 Mg Tablet PO 6 mg DAILY PEREZ Administration Enoxaparin Sodium 40 mg 08/23/23 09:00 08/29/23 09:02 Enoxaparin 40 Mg/0.4 Ml Syringe SUBQ 40 mg DAILY PEREZ Administration Gabapentin 300 mg 08/24/23 09:00 08/29/23 09:02 Gabapentin 300 Mg Capsule PO 300 mg DAILY PEREZ Administration Guaifenesin 600 mg 08/23/23 21:00 08/29/23 20:53 Guaifenesin 600 Mg Tablet PO 600 mg BID PEREZ Administration Insulin Glargine-yfgn 20 unit 08/29/23 21:00 08/29/23 20:53 Insulin Glargine-Yfgn 300 Unit/3 Ml Pen SUBQ 20 unit QPM PEREZ Administration Insulin Human Lispro 3 - 11 unit 08/29/23 17:00 08/29/23 20:54 Insulin Lispro 300 Unit/3 Ml Pen SUBQ 9 unit 0800,1200,1700,2100 PEREZ Administration Protocol Magnesium Oxide 400 mg 08/25/23 20:00 08/29/23 09:02 Magnesium Oxide 400 Mg Tablet PO 400 mg DAILYWM PEREZ Administration Metoprolol Succinate 25 mg 08/24/23 21:00 08/29/23 20:52 Metoprolol Succinate 25 Mg Tablet PO 25 mg BID PEREZ Administration Multivitamins/Minerals 1 tab 08/26/23 17:00 08/29/23 09:02 Multivitamin W/Minerals Tablet PO 1 tab DAILYWM PEREZ Administration Polyethylene Glycol 17 gm 08/26/23 09:00 08/29/23 09:02 Polyethylene Glycol 3350 17 Gm Packet PO 17 gm DAILY PEREZ Administration Trazodone HCl 50 mg 08/29/23 21:00 08/29/23 20:53 Trazodone 50 Mg Tablet PO 50 mg HS PEREZ Administration - Lab Result Fish Bone Diagrams: 08/30/23 07:11 08/30/23 07:11 - Additional Planning My Orders: My Active Orders 08/29/23 17:00 Insulin Lispro [Humalog Kwikpen U-100] 3 - 11 unit SUBQ 0800,1200,1700,2100 08/29/23 21:00 Insulin Glargine-Yfgn [Semglee] 20 unit SUBQ QPM traZODone [Desyrel] 50 mg PO HS Subjective - Subjective Nursing Reports: Other (Alert. Reports having difficulty sleeping. She has no specific complaints today.) Objective Vital Signs: Vital Signs - 24 hr 08/28/23 08/29/23 08/29/23 22:20 04:29 07:28 Temperature 36.8 C Heart Rate [ 78 Brachial] Respiratory 18 Rate Blood Pressure 115/57 L [Right Brachial artery] O2 Saturation 91 L If not protocol 4 2 : Oxygen Flow, liters/minute 08/29/23 08/29/23 08/29/23 08:01 11:02 20:04 Temperature 36.7 C 36.6 C 36.6 C Heart Rate [ 82 82 63 Brachial] Respiratory 18 18 16 Rate Blood Pressure 108/62 112/81 H 120/71 [Right Brachial artery] O2 Saturation 90 L 96 95 If not protocol 2 2 : Oxygen Flow, liters/minute Oxygen O2 Source Nasal cannula I&O (Last 24 Hrs): Intake and Output Totals x24h 08/27/23 08/28/23 08/29/23 23:59 23:59 23:59 Intake Total 9075 460 6892 Output Total 1350 120 Balance 775 718 1446 General: Alert, Oriented x3, No acute distress HEENT: Atraumatic, PERRLA, EOMI Neck: Supple, No JVD, No thyromegaly Lymphatic: no adenopathy Neuro: Alert, Non Focal Cardiovascular: Regular rate, Normal S1, Normal S2, No murmurs Respiratory: Chest non-tender, No respiratory distress, Breath sounds nml Abdomen: Normal bowel sounds, No tenderness Extremities: No clubbing, No cyanosis Skin: No rashes - Results Results: Laboratory Results WBC 5.1 x10^3/uL (4.8-10.8) 08/29/23 05:36 RBC 5.04 10^6/uL (4.20-5.40) 08/29/23 05:36 Hgb 12.7 g/dL (12.0-16.0) 08/29/23 05:36 Hct 43.2 % (37.0-47.0) 08/29/23 05:36 MCV 85.7 fL (81.0-99.0) 08/29/23 05:36 MCH 25.2 pg (27.0-31.0) L 08/29/23 05:36 MCHC 29.4 g/dL (32.0-36.0) L 08/29/23 05:36 RDW 16.1 % (12.0-15.0) H 08/29/23 05:36 Plt Count 279 10^3/uL (130-450) 08/29/23 05:36 MPV 10.7 fL (7.9-10.8) 08/29/23 05:36 Neut # (Auto) 3.7 10^3/uL (1.5-6.6) 08/29/23 05:36 Lymph # (Auto) 1.0 10^3/uL (1.5-3.5) L 08/29/23 05:36 [place] # (Auto) 0.4 10^3/uL (0.0-1.0) 08/29/23 05:36 Eos # (Auto) 0.0 10^3/uL (0.0-0.7) 08/29/23 05:36 Baso # (Auto) 0.0 10^3/uL (0.0-0.1) 08/29/23 05:36 Absolute Nucleated RBC 0.00 x10^3/uL 08/29/23 05:36 Total Counted 100 08/25/23 05:33 Band Neuts % (Manual) 0 % (0-10) 08/25/23 05:33 Reactive Lymphs % (Man) 10 % 08/24/23 05:39 Abnorm Lymph % (Manual) 0 % 08/25/23 05:33 Nucleated RBC % 0.0 /100WBC 08/29/23 05:36 Neutrophils # (Manual) 2.7 10^3/uL (1.5-6.6) 08/25/23 05:33 Lymphocytes # (Manual) 0.9 10^3/uL (1.5-3.5) L 08/25/23 05:33 Monocytes # (Manual) 0.4 10^3/uL (0.0-1.0) 08/25/23 05:33 Eosinophils # (Manual) 0.0 10^3/uL (0-0.7) 08/25/23 05:33 Basophils # (Manual) 0.0 10^3/uL (0-0.1) 08/25/23 05:33 Differential Comment MANUAL DIFFERENTIAL 08/25/23 05:33 Manual Slide Review Indicated 08/22/23 18:20 Platelet Estimate NORMAL (130-450,000) (NORMAL) 08/25/23 05:33 Platelet Morphology NORMAL APPEARANCE (NORMAL) 08/24/23 05:39 RBC Morph Micro Appear NORMAL APPEARANCE (NORMAL) 08/25/23 05:33 Bld Gas Analysis Time 1330 08/26/23 13:30 Sample Site LEFT RADIAL 08/26/23 13:30 ABG pH 7.32 (7.35-7.45) L 08/26/23 13:30 ABG pCO2 70 mmHg (34-45) H* 08/26/23 13:30 ABG pO2 77 mmHg (80-100) L 08/26/23 13:30 ABG HCO3 35.5 mmol/L (22.0-26.0) H 08/26/23 13:30 ABG Total CO2 37.6 MMOL/L (21.0-29.0) H 08/26/23 13:30 ABG O2 Saturation 94 % (94-98) 08/26/23 13:30 ABG Base Excess 7.3 mmol/L (-2.0-3.0) H 08/26/23 13:30 [place] Test POSITIVE 08/26/23 13:30 VBG pH 7.455 (7.31-7.41) H 08/27/23 04:38 Ionized Calcium 1.16 mmol/L (1.15-1.33) 08/27/23 04:38 O2 Delivery Device NASAL CANNULA 08/26/23 13:30 O2 Liters/Min 5.00 LPM 08/26/23 13:30 Sodium 140 mmol/L (135-145) 08/29/23 05:36 Potassium 3.9 mmol/L (3.5-4.5) 08/29/23 05:36 Chloride 97 mmol/L (101-111) L 08/29/23 05:36 Carbon Dioxide 37 mmol/L (21-32) H 08/29/23 05:36 Anion Gap 6.0 (6-13) 08/29/23 05:36 BUN 10 mg/dL (6-20) 08/29/23 05:36 Creatinine 0.4 mg/dL (0.6-1.3) L 08/29/23 05:36 Estimated GFR (MDRD) 167 (>89) 08/29/23 05:36 Glucose 281 mg/dL (74-104) H 08/29/23 05:36 Estimat Average Glucose 174 mg/dL (70-100) H 08/27/23 04:38 Hemoglobin A1c % 7.7 % (4.27-6.07) H 08/27/23 04:38 Lactic Acid 0.7 mmol/L (0.5-2.2) 08/22/23 18:35 Calcium 9.8 mg/dL (8.5-10.3) 08/29/23 05:36 Phosphorus 3.9 mg/dL (2.5-5.0) 08/27/23 19:04 Magnesium 1.8 mg/dL (1.7-2.3) 08/28/23 08:00 Total Bilirubin 0.6 mg/dL (0.2-1.0) 08/22/23 18:20 AST 29 IU/L (10-42) 08/22/23 18:20 ALT 11 IU/L (10-60) 08/22/23 18:20 Alkaline Phosphatase 61 IU/L (42-121) 08/22/23 18:20 Troponin I High Sens 58.3 ng/L (2.3-14.8) H* 08/22/23 21:19 B-Natriuretic Peptide 62 pg/mL (5-100) 08/22/23 18:20 Total Protein 6.2 g/dL (6.4-8.9) L 08/22/23 18:20 Albumin 3.4 g/dL (3.2-5.5) 08/22/23 18:20 Globulin 2.8 g/dL (2.1-4.2) 08/22/23 18:20 Albumin/Globulin Ratio 1.2 (1.0-2.2) 08/22/23 18:20 Lipase 38 U/L (11-82) 08/22/23 18:20 Urine Color DARK YELLOW 08/22/23 23:03 Urine Clarity CLEAR (CLEAR) 08/22/23 23:03 Urine pH 6.0 PH (5.0-7.5) 08/22/23 23:03 Ur Specific [place] 1.020 (1.002-1.030) 08/22/23 23:03 Urine Protein TRACE mg/dL (NEGATIVE) 08/22/23 23:03 Urine Glucose (UA) NEGATIVE mg/dL (NEGATIVE) 08/22/23 23:03 Urine Ketones NEGATIVE mg/dL (NEGATIVE) 08/22/23 23:03 Urine Occult Blood NEGATIVE (NEGATIVE) 08/22/23 23:03 Urine Nitrite NEGATIVE (NEGATIVE) 08/22/23 23:03 Urine Bilirubin NEGATIVE (NEGATIVE) 08/22/23 23:03 Urine Urobilinogen 1 (NORMAL) E.U./dL (NORMAL) 08/22/23 23:03 Ur Leukocyte Esterase NEGATIVE (NEGATIVE) 08/22/23 23:03 Ur Microscopic Review NOT INDICATED 08/22/23 23:03 Urine Culture Comments NOT INDICATED 08/22/23 23:03 Nasal Adenovirus (PCR) NOT DETECTED 08/22/23 21:50 Nasal B. parapertussis DNA (PCR) NOT DETECTED 08/22/23 21:50 Nasal Coronavir 229E PCR NOT DETECTED 08/22/23 21:50 Nasal Coronavir HKU1 PCR NOT DETECTED 08/22/23 21:50 Nasal Coronavir NL63 PCR NOT DETECTED 08/22/23 21:50 Nasal Coronavir OC43 PCR NOT DETECTED 08/22/23 21:50 Nasal Enterovir/Rhinovir PCR NOT DETECTED 08/22/23 21:50 Nasal Influenza B PCR NOT DETECTED 08/22/23 21:50 Nasal Influenza A PCR NOT DETECTED 08/22/23 21:50 Nasal Parainfluen 1 PCR NOT DETECTED 08/22/23 21:50 Nasal Parainfluen 2 PCR NOT DETECTED 08/22/23 21:50 Nasal Parainfluen 3 PCR NOT DETECTED 08/22/23 21:50 Nasal Parainfluen 4 PCR NOT DETECTED 08/22/23 21:50 Nasal RSV (PCR) NOT DETECTED 08/22/23 21:50 Nasal B.pertussis DNA PCR NOT DETECTED 08/22/23 21:50 Nasal C.pneumoniae (PCR) NOT DETECTED 08/22/23 21:50 Amish Human Metapneumo PCR NOT DETECTED 08/22/23 21:50 Nasal M.pneumoniae (PCR) NOT DETECTED 08/22/23 21:50 Nasal SARS-CoV-2 (PCR) DETECTED A 08/22/23 21:50 - Procedures Procedures: Procedures INSERTION OF INFUSION DEV INTO SUP VENA CAVA, PERC APPROACH (06/09/23) ABX Reporting Has patient been on IV antibiotics over the past 48 hours?: No Current Medications - Current Medications Current Medications: Active Medications Acetaminophen (Acetaminophen 325 Mg Tablet) 650 mg PO Q4HR PRN PRN Reason: Pain 1 to 4, or Fever Last Admin: 08/29/23 03:36 Dose: 650 mg Chlorhexidine Gluconate (Chlorhexidine Gluconate 15 Ml Udc) 15 ml PO BID [facility] Last Admin: 08/29/23 20:53 Dose: 15 ml Dexamethasone (Dexamethasone 4 Mg Tablet) 6 mg PO DAILY [facility] Last Admin: 08/29/23 09:00 Dose: 6 mg Enoxaparin Sodium (Enoxaparin 40 Mg/0.4 Ml Syringe) 40 mg SUBQ DAILY [facility] Last Admin: 08/29/23 09:02 Dose: 40 mg Gabapentin (Gabapentin 300 Mg Capsule) 300 mg PO DAILY [facility] Last Admin: 08/29/23 09:02 Dose: 300 mg Guaifenesin (Guaifenesin 600 Mg Tablet) 600 mg PO BID [facility] Last Admin: 08/29/23 20:53 Dose: 600 mg Insulin Glargine-yfgn (Insulin Glargine-Yfgn 300 Unit/3 Ml Pen) 20 unit SUBQ QPM [facility] Last Admin: 08/29/23 20:53 Dose: 20 unit Insulin Human Lispro (Insulin Lispro 300 Unit/3 Ml Pen) 3 - 11 unit SUBQ 0800,1200,1700,2100 [facility]; Protocol Last Admin: 08/29/23 20:54 Dose: 9 unit Magnesium Oxide (Magnesium Oxide 400 Mg Tablet) 400 mg PO DAILYWM [facility] Last Admin: 08/29/23 09:02 Dose: 400 mg Metoprolol Succinate (Metoprolol Succinate 25 Mg Tablet) 25 mg PO BID [facility] Last Admin: 08/29/23 20:52 Dose: 25 mg Multivitamins/Minerals (Multivitamin W/Minerals Tablet) [facility] [place] Admin: 08/29/23 09:02 Dose: 1 tab Polyethylene Glycol (Polyethylene Glycol 3350 17 Gm Packet) 17 gm PO DAILY [facility] Last Admin: 08/29/23 09:02 Dose: 17 gm Trazodone HCl (Trazodone 50 Mg Tablet) 50 mg PO [facility] Last Admin: 08/29/23 20:53 Dose: 50 mg Simvastatin [Zocor] 10 mg PO DAILY 06/09/23 Tocopheryl [Vitamin E] 400 unit PO DAILY 06/10/23 Vitamin B Complex 1 each PO DAILY 06/10/23 Gabapentin [Neurontin] 300 mg PO DAILY 08/23/23 Liraglutide [Victoza 2-Pal] 1.2 mg SUBQ DAILY PM 08/23/23 Losartan Potassium 12.5 mg PO DAILY 08/23/23 traZODone [Desyrel] 50 mg PO BID 08/23/23 Insulin Glargine-Yfgn [Semglee] 20 unit SUBQ BID 08/25/23 Insulin Lispro [Humalog Kwikpen U-100] 6 unit SUBQ TIDWM 08/25/23
[2023-08-30] MEDS: ACETAMINOPHEN 325 MG TABLET PO PRN ×2 (00:53→10:34)
[2023-08-30 07:40] LABS: EOSINOPHILS % (AUTO) 0.2 %; HCT - HEMATOCRIT 45.1 % (37.0-47.0); HGB - HEMOGLOBIN 13.2 g/dL (12.0-16.0); LYMPHOCYTES # (AUTO) 1.4 10^3/uL (1.5-3.5); LYMPHOCYTES % (AUTO) 21.5 %; MEAN CORPUSCULAR HEMOGLOBIN 25.5 pg (27.0-31.0); MEAN CORPUSCULAR HGB CONC 29.3 g/dL (32.0-36.0); MEAN CORPUSCULAR VOLUME 87.1 fL (81.0-99.0); MEAN PLATELET VOLUME 10.2 fL (7.9-10.8); MONOCYTES # (AUTO) 0.5 10^3/uL (0.0-1.0); MONOCYTES % (AUTO) 7.3 %; NEUTROPHILS # (AUTO) 4.6 10^3/uL (1.5-6.6); NEUTROPHILS % (AUTO) 70.7 %; PLT - PLATELET COUNT 325 10^3/uL (130-450); RED BLOOD COUNT 5.18 10^6/uL (4.20-5.40); RED CELL DISTRIBUTION WIDTH 16.4 % (12.0-15.0); WHITE BLOOD COUNT 6.6 x10^3/uL (4.8-10.8)
[2023-08-30 07:45] LABS: CALCIUM 10.3 mg/dL (8.5-10.3); CREATININE 0.5 mg/dL (0.6-1.3); POTASSIUM 4.1 mmol/L (3.5-4.5)
[2023-08-30] MEDS: ENOXAPARIN 40 MG/0.4 ML SYRINGE SUBQ SCH (08:03)
[2023-08-30] MEDS: METOPROLOL SUCCINATE 25 MG TABLET PO SCH ×2 (08:03→21:16)
[2023-08-30] MEDS: MAGNESIUM OXIDE 400 MG TABLET PO SCH (08:03)
[2023-08-30] MEDS: CHLORHEXIDINE GLUCONATE 15 ML UDC PO SCH ×2 (08:03→21:16)
[2023-08-30] MEDS: dexAMETHasone 4 MG TABLET PO SCH (08:03)
[2023-08-30] MEDS: polyethylene glycoL 3350 17 GM PACKET PO SCH (08:03)
[2023-08-30] MEDS: MULTIVITAMIN W/MINERALS TABLET PO SCH (08:04)
[2023-08-30] MEDS: INSULIN LISPRO 300 UNIT/3 ML PEN SUBQ SCH ×4 (08:04→21:17)
[2023-08-30] MEDS: guaiFENesin 600 MG TABLET PO SCH ×2 (08:04→21:16)
[2023-08-30] MEDS: GABAPENTIN 300 MG CAPSULE PO SCH (08:04)
[2023-08-30] MEDS ORDERED: SENNA 8.6 MG TABLET PO SCH ×2 (13:01→13:14)
[2023-08-30] MEDS: DOCUSATE SODIUM 250 MG CAPSULE PO SCH (14:06)
[2023-08-30] MEDS: SENNA 8.6 MG TABLET PO SCH (14:09)
--- NOTE | 2023-08-30 18:56 | PROVIDER PROGRESS NOTE ---
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 Continue supplemental O2, treat the underlying COVID infection Remdesivir completed (2) COVID-19 Plan: Remdesivir completed Continue Decadron for total of 10 days or until discharge Isolation precautions are ordered (3) Confusion 1:1 monitoring. Patient mental status continues to improve. (4) Myotonic Dystrophy Continue supportive care (5) Leukopenia Continue to monitor CBC (6) DM Type 2 Plan: Continue diabetic diet, fingerstick checks, SS Insiulin coverage, Hypoglycemia protocol (7) A fib Plan: Continue metoprolol for rate control (8) LBBB This is chronic for her Family Discussion: A family discussion with myself, Katherin sister and her mother took place this evening. They wanted to ensure that patient could walk to the bathroom independently prior to coming home. They would like to have home health in place prior to discharging to home. They would also like to obtain some oxygen bottles for backup. Alternatively patient could go to a prison but is reluctant to do so. She has not had her COVID-19 vaccine or her flu vaccine this year. CODE Status: DNR - Current Meds Current Meds: Current Medications Generic Name Dose Route Start Last Admin Trade Name Freq PRN Reason Stop Dose Admin Acetaminophen 650 mg 08/23/23 01:54 08/30/23 10:34 Acetaminophen 325 Mg Tablet PO 650 mg Q4HR PRN Administration Pain 1 to 4, or Fever Chlorhexidine Gluconate 15 ml 08/26/23 21:00 08/30/23 08:03 Chlorhexidine Gluconate 15 Ml Udc PO 15 ml BID PEREZ Administration Dexamethasone 6 mg 08/26/23 13:00 08/30/23 08:03 Dexamethasone 4 Mg Tablet PO 6 mg DAILY PEREZ Administration Docusate Sodium 250 - 500 mg 08/30/23 13:00 08/30/23 14:06 Docusate Sodium 250 Mg Capsule PO 250 mg DAILY PEREZ Administration Enoxaparin Sodium 40 mg 08/23/23 09:00 08/30/23 08:03 Enoxaparin 40 Mg/0.4 Ml Syringe SUBQ 40 mg DAILY PEREZ Administration Gabapentin 300 mg 08/24/23 09:00 08/30/23 08:04 Gabapentin 300 Mg Capsule PO 300 mg DAILY PEREZ Administration Guaifenesin 600 mg 08/23/23 21:00 08/30/23 08:04 Guaifenesin 600 Mg Tablet PO 600 mg BID PEREZ Administration Insulin Glargine-yfgn 20 unit 08/29/23 21:00 08/29/23 20:53 Insulin Glargine-Yfgn 300 Unit/3 Ml Pen SUBQ 20 unit QPM PEREZ Administration Insulin Human Lispro 3 - 11 unit 08/29/23 17:00 08/30/23 17:02 Insulin Lispro 300 Unit/3 Ml Pen SUBQ 9 unit 0800,1200,1700,2100 PEREZ Administration Protocol Magnesium Oxide 400 mg 08/25/23 20:00 08/30/23 08:03 Magnesium Oxide 400 Mg Tablet PO 400 mg DAILYWM PEREZ Administration Metoprolol Succinate 25 mg 08/24/23 21:00 08/30/23 08:03 Metoprolol Succinate 25 Mg Tablet PO 25 mg BID PEREZ Administration Multivitamins/Minerals 1 tab 08/26/23 17:00 08/30/23 08:04 Multivitamin W/Minerals Tablet PO 1 tab DAILYWM PEREZ Administration Polyethylene Glycol 17 gm 08/26/23 09:00 08/30/23 08:03 Polyethylene Glycol 3350 17 Gm Packet PO 17 gm DAILY PEREZ Administration Senna 8.6 - 17.2 mg 08/30/23 15:00 08/30/23 14:09 Senna 8.6 Mg Tablet PO 8.6 mg DAILY PEREZ Administration Trazodone HCl 50 mg 08/29/23 21:00 08/29/23 20:53 Trazodone 50 Mg Tablet PO 50 mg HS PEREZ Administration - Lab Result Fish Bone Diagrams: 08/30/23 07:11 08/30/23 07:11 - Additional Planning My Orders: My Active Orders 08/29/23 21:00 Insulin Glargine-Yfgn [Semglee] 20 unit SUBQ QPM traZODone [Desyrel] 50 mg PO HS 08/29/23 22:00 Miscellaenous Nursing Order [RC] DAILY 08/30/23 13:00 Docusate Sodium 250Mg Capsule [Colace 250Mg Capsule] 250 - 500 mg PO DAILY 08/30/23 15:00 Senna [Senokot] 8.6 - 17.2 mg PO DAILY Subjective - Subjective Patient Reports: Other (Alert. Following commands. More cooperative. She denies chest pain, nausea, vomiting. No other complaints at this time.) Objective Vital Signs: Vital Signs - 24 hr 08/29/23 08/29/23 08/30/23 20:04 21:45 03:09 Temperature 36.6 C 36.6 C Heart Rate [ 63 72 Brachial] Respiratory 16 16 Rate Blood Pressure 120/71 116/74 [Right Brachial artery] O2 Saturation 95 95 If not protocol 2 2 2 : Oxygen Flow, liters/minute 08/30/23 08/30/23 08/30/23 07:37 07:40 13:30 Temperature 36.3 C L 36.3 C L Heart Rate [ 78 76 Brachial] Respiratory 18 18 Rate Blood Pressure 108/67 118/72 [Right Brachial artery] O2 Saturation 90 L 96 If not protocol 2 2 2 : Oxygen Flow, liters/minute 08/30/23 08/30/23 08/30/23 15:02 15:30 18:15 Temperature 36.6 C 36.5 C Heart Rate [ 67 75 Brachial] Respiratory 18 16 Rate Blood Pressure 113/77 108/68 [Right Brachial artery] O2 Saturation 97 97 95 If not protocol 2 2 2 : Oxygen Flow, liters/minute Oxygen O2 Source Nasal cannula I&O (Last 24 Hrs): Intake and Output Totals x24h 08/28/23 08/29/23 08/30/23 23:59 23:59 23:59 Intake Total 920 2070 940 Output Total 120 Balance 920 1950 940 General: Alert, Oriented x3, Cooperative, No acute distress HEENT: Atraumatic, PERRLA, EOMI Neck: Supple, No JVD Lymphatic: no adenopathy Neuro: Alert, Non Focal Cardiovascular: Regular rate, Normal S1, Normal S2, No murmurs Respiratory: Chest non-tender, No respiratory distress, Breath sounds nml Abdomen: Normal bowel sounds Extremities: No clubbing, No cyanosis, No edema Skin: No rashes - Results Results: Laboratory Results WBC 6.6 x10^3/uL (4.8-10.8) 08/30/23 07:11 RBC 5.18 10^6/uL (4.20-5.40) 08/30/23 07:11 Hgb 13.2 g/dL (12.0-16.0) 08/30/23 07:11 Hct 45.1 % (37.0-47.0) 08/30/23 07:11 MCV 87.1 fL (81.0-99.0) 08/30/23 07:11 MCH 25.5 pg (27.0-31.0) L 08/30/23 07:11 MCHC 29.3 g/dL (32.0-36.0) L 08/30/23 07:11 RDW 16.4 % (12.0-15.0) H 08/30/23 07:11 Plt Count 325 10^3/uL (130-450) 08/30/23 07:11 MPV 10.2 fL (7.9-10.8) 08/30/23 07:11 Neut # (Auto) 4.6 10^3/uL (1.5-6.6) 08/30/23 07:11 Lymph # (Auto) 1.4 10^3/uL (1.5-3.5) L 08/30/23 07:11 Price # (Auto) 0.5 10^3/uL (0.0-1.0) 08/30/23 07:11 Eos # (Auto) 0.0 10^3/uL (0.0-0.7) 08/30/23 07:11 Baso # (Auto) 0.0 10^3/uL (0.0-0.1) 08/30/23 07:11 Absolute Nucleated RBC 0.00 x10^3/uL 08/30/23 07:11 Total Counted 100 08/25/23 05:33 Band Neuts % (Manual) 0 % (0-10) 08/25/23 05:33 Reactive Lymphs % (Man) 10 % 08/24/23 05:39 Abnorm Lymph % (Manual) 0 % 08/25/23 05:33 Nucleated RBC % 0.0 /100WBC 08/30/23 07:11 Neutrophils # (Manual) 2.7 10^3/uL (1.5-6.6) 08/25/23 05:33 Lymphocytes # (Manual) 0.9 10^3/uL (1.5-3.5) L 08/25/23 05:33 Monocytes # (Manual) 0.4 10^3/uL (0.0-1.0) 08/25/23 05:33 Eosinophils # (Manual) 0.0 10^3/uL (0-0.7) 08/25/23 05:33 Basophils # (Manual) 0.0 10^3/uL (0-0.1) 08/25/23 05:33 Differential Comment MANUAL DIFFERENTIAL 08/25/23 05:33 Manual Slide Review Indicated 08/22/23 18:20 Platelet Estimate NORMAL (130-450,000) (NORMAL) 08/25/23 05:33 Platelet Morphology NORMAL APPEARANCE (NORMAL) 08/24/23 05:39 RBC Morph Micro Appear NORMAL APPEARANCE (NORMAL) 08/25/23 05:33 Bld Gas Analysis Time 1330 08/26/23 13:30 Sample Site LEFT RADIAL 08/26/23 13:30 ABG pH 7.32 (7.35-7.45) L 08/26/23 13:30 ABG pCO2 70 mmHg (34-45) H* 08/26/23 13:30 ABG pO2 77 mmHg (80-100) L 08/26/23 13:30 ABG HCO3 35.5 mmol/L (22.0-26.0) H 08/26/23 13:30 ABG Total CO2 37.6 MMOL/L (21.0-29.0) H 08/26/23 13:30 ABG O2 Saturation 94 % (94-98) 08/26/23 13:30 ABG Base Excess 7.3 mmol/L (-2.0-3.0) H 08/26/23 13:30 Davie Test POSITIVE 08/26/23 13:30 VBG pH 7.455 (7.31-7.41) H 08/27/23 04:38 Ionized Calcium 1.16 mmol/L (1.15-1.33) 08/27/23 04:38 O2 Delivery Device NASAL CANNULA 08/26/23 13:30 O2 Liters/Min 5.00 LPM 08/26/23 13:30 Sodium 142 mmol/L (135-145) 08/30/23 07:11 Potassium 4.1 mmol/L (3.5-4.5) 08/30/23 07:11 Chloride 101 mmol/L (101-111) 08/30/23 07:11 Carbon Dioxide 38 mmol/L (21-32) H 08/30/23 07:11 Anion Gap 3.0 (6-13) L 08/30/23 07:11 BUN 13 mg/dL (6-20) 08/30/23 07:11 Creatinine 0.5 mg/dL (0.6-1.3) L 08/30/23 07:11 Estimated GFR (MDRD) 129 (>89) 08/30/23 07:11 Glucose 171 mg/dL (74-104) H 08/30/23 07:11 Estimat Average Glucose 174 mg/dL (70-100) H 08/27/23 04:38 Hemoglobin A1c % 7.7 % (4.27-6.07) H 08/27/23 04:38 Lactic Acid 0.7 mmol/L (0.5-2.2) 08/22/23 18:35 Calcium 10.3 mg/dL (8.5-10.3) 08/30/23 07:11 Phosphorus 3.9 mg/dL (2.5-5.0) 08/27/23 19:04 Magnesium 1.8 mg/dL (1.7-2.3) 08/28/23 08:00 Total Bilirubin 0.6 mg/dL (0.2-1.0) 08/22/23 18:20 AST 29 IU/L (10-42) 08/22/23 18:20 ALT 11 IU/L (10-60) 08/22/23 18:20 Alkaline Phosphatase 61 IU/L (42-121) 08/22/23 18:20 Troponin I High Sens 58.3 ng/L (2.3-14.8) H* 08/22/23 21:19 B-Natriuretic Peptide 62 pg/mL (5-100) 08/22/23 18:20 Total Protein 6.2 g/dL (6.4-8.9) L 08/22/23 18:20 Albumin 3.4 g/dL (3.2-5.5) 08/22/23 18:20 Globulin 2.8 g/dL (2.1-4.2) 08/22/23 18:20 Albumin/Globulin Ratio 1.2 (1.0-2.2) 08/22/23 18:20 Lipase 38 U/L (11-82) 08/22/23 18:20 Urine Color DARK YELLOW 08/22/23 23:03 Urine Clarity CLEAR (CLEAR) 08/22/23 23:03 Urine pH 6.0 PH (5.0-7.5) 08/22/23 23:03 Ur Specific Apison 1.020 (1.002-1.030) 08/22/23 23:03 Urine Protein TRACE mg/dL (NEGATIVE) 08/22/23 23:03 Urine Glucose (UA) NEGATIVE mg/dL (NEGATIVE) 08/22/23 23:03 Urine Ketones NEGATIVE mg/dL (NEGATIVE) 08/22/23 23:03 Urine Occult Blood NEGATIVE (NEGATIVE) 08/22/23 23:03 Urine Nitrite NEGATIVE (NEGATIVE) 08/22/23 23:03 Urine Bilirubin NEGATIVE (NEGATIVE) 08/22/23 23:03 Urine Urobilinogen 1 (NORMAL) E.U./dL (NORMAL) 08/22/23 23:03 Ur Leukocyte Esterase NEGATIVE (NEGATIVE) 08/22/23 23:03 Ur Microscopic Review NOT INDICATED 08/22/23 23:03 Urine Culture Comments NOT INDICATED 08/22/23 23:03 Nasal Adenovirus (PCR) NOT DETECTED 08/22/23 21:50 Nasal B. parapertussis DNA (PCR) NOT DETECTED 08/22/23 21:50 Nasal Coronavir 229E PCR NOT DETECTED 08/22/23 21:50 Nasal Coronavir HKU1 PCR NOT DETECTED 08/22/23 21:50 Nasal Coronavir NL63 PCR NOT DETECTED 08/22/23 21:50 Nasal Coronavir OC43 PCR NOT DETECTED 08/22/23 21:50 Nasal Enterovir/Rhinovir PCR NOT DETECTED 08/22/23 21:50 Nasal Influenza B PCR NOT DETECTED 08/22/23 21:50 Nasal Influenza A PCR NOT DETECTED 08/22/23 21:50 Nasal Parainfluen 1 PCR NOT DETECTED 08/22/23 21:50 Nasal Parainfluen 2 PCR NOT DETECTED 08/22/23 21:50 Nasal Parainfluen 3 PCR NOT DETECTED 08/22/23 21:50 Nasal Parainfluen 4 PCR NOT DETECTED 08/22/23 21:50 Nasal RSV (PCR) NOT DETECTED 08/22/23 21:50 Nasal B.pertussis DNA PCR NOT DETECTED 08/22/23 21:50 Nasal C.pneumoniae (PCR) NOT DETECTED 08/22/23 21:50 Amish Human Metapneumo PCR NOT DETECTED 08/22/23 21:50 Nasal M.pneumoniae (PCR) NOT DETECTED 08/22/23 21:50 Nasal SARS-CoV-2 (PCR) DETECTED A 08/22/23 21:50 - Procedures Procedures: Procedures INSERTION OF INFUSION DEV INTO SUP VENA CAVA, PERC APPROACH (06/09/23) ABX Reporting Has patient been on IV antibiotics over the past 48 hours?: No Current Medications - Current Medications Current Medications: Active Medications Acetaminophen (Acetaminophen 325 Mg Tablet) 650 mg PO Q4HR PRN PRN Reason: Pain 1 to 4, or Fever Last Admin: 08/30/23 10:34 Dose: 650 mg Chlorhexidine Gluconate (Chlorhexidine Gluconate 15 Ml Udc) 15 ml PO BID [facility] Last Admin: 08/30/23 08:03 Dose: 15 ml Dexamethasone (Dexamethasone 4 Mg Tablet) 6 mg PO DAILY [facility] Last Admin: 08/30/23 08:03 Dose: 6 mg Docusate Sodium (Docusate Sodium 250 Mg Capsule) 250 - 500 mg PO DAILY [facility] Last Admin: 08/30/23 14:06 Dose: 250 mg Enoxaparin Sodium (Enoxaparin 40 Mg/0.4 Ml Syringe) 40 mg SUBQ DAILY [facility] Last Admin: 08/30/23 08:03 Dose: 40 mg Gabapentin (Gabapentin 300 Mg Capsule) 300 mg PO DAILY [facility] Last Admin: 08/30/23 08:04 Dose: 300 mg Guaifenesin (Guaifenesin 600 Mg Tablet) 600 mg PO BID [facility] Last Admin: 08/30/23 08:04 Dose: 600 mg Insulin Glargine-yfgn (Insulin Glargine-Yfgn 300 Unit/3 Ml Pen) 20 unit SUBQ QPM [facility] Last Admin: 08/29/23 20:53 Dose: 20 unit Insulin Human Lispro (Insulin Lispro 300 Unit/3 Ml Pen) 3 - 11 unit SUBQ 0800,1200,1700,2100 [facility]; Protocol Last Admin: 08/30/23 17:02 Dose: 9 unit Magnesium Oxide (Magnesium Oxide 400 Mg Tablet) 400 mg PO DAILYWM [facility] Last Admin: 08/30/23 08:03 Dose: 400 mg Metoprolol Succinate (Metoprolol Succinate 25 Mg Tablet) 25 mg PO BID [facility] Last Admin: 08/30/23 08:03 Dose: 25 mg Multivitamins/Minerals (Multivitamin W/Minerals Tablet) 1 tab PO DAILYWM [facility] Last Admin: 08/30/23 08:04 Dose: 1 tab Polyethylene Glycol (Polyethylene Glycol 3350 17 Gm Packet) 17 gm PO DAILY [facility] Last Admin: 08/30/23 08:03 Dose: 17 gm Senna (Senna 8.6 Mg Tablet) 8.6 - 17.2 mg PO DAILY [facility] Last Admin: 08/30/23 14:09 Dose: 8.6 mg Trazodone HCl (Trazodone 50 Mg Tablet) 50 mg PO HS [facility] Last Admin: 08/29/23 20:53 Dose: 50 mg Simvastatin [Zocor] 10 mg PO DAILY 06/09/23 Tocopheryl [Vitamin E] 400 unit PO DAILY 06/10/23 Vitamin B Complex 1 each PO DAILY 06/10/23 Gabapentin [Neurontin] 300 mg PO DAILY 08/23/23 Liraglutide [Victoza 2-Pal] 1.2 mg SUBQ DAILY PM 08/23/23 Losartan Potassium 12.5 mg PO DAILY 08/23/23 traZODone [Desyrel] 50 mg PO BID 08/23/23 Insulin Glargine-Yfgn [Semglee] 20 unit SUBQ BID 08/25/23 Insulin Lispro [Humalog Kwikpen U-100] 6 unit SUBQ TIDWM 08/25/23
[2023-08-30] MEDS: traZODone 50 MG TABLET PO SCH (21:16)
[2023-08-30] MEDS: INSULIN GLARGINE-YFGN 300 UNIT/3 ML PEN SUBQ SCH (21:17)
[2023-08-31] MEDS: ACETAMINOPHEN 325 MG TABLET PO PRN (06:12)
[2023-08-31 07:29] LABS: EOSINOPHILS % (AUTO) 0.1 %; HCT - HEMATOCRIT 45.1 % (37.0-47.0); HGB - HEMOGLOBIN 13.5 g/dL (12.0-16.0); LYMPHOCYTES # (AUTO) 2.2 10^3/uL (1.5-3.5); LYMPHOCYTES % (AUTO) 31.7 %; MEAN CORPUSCULAR HGB CONC 29.9 g/dL (32.0-36.0); MEAN CORPUSCULAR VOLUME 86.9 fL (81.0-99.0); MEAN PLATELET VOLUME 10.3 fL (7.9-10.8); MONOCYTES # (AUTO) 0.6 10^3/uL (0.0-1.0); MONOCYTES % (AUTO) 8.1 %; NEUTROPHILS # (AUTO) 4.2 10^3/uL (1.5-6.6); PLT - PLATELET COUNT 325 10^3/uL (130-450); RED BLOOD COUNT 5.19 10^6/uL (4.20-5.40); RED CELL DISTRIBUTION WIDTH 16.5 % (12.0-15.0)
[2023-08-31 07:44] LABS: CALCIUM 10.3 mg/dL (8.5-10.3); CREATININE 0.5 mg/dL (0.6-1.3); POTASSIUM 4.1 mmol/L (3.5-4.5)
[2023-08-31] MEDS: INSULIN LISPRO 300 UNIT/3 ML PEN SUBQ SCH ×4 (08:09→20:58)
[2023-08-31] MEDS ORDERED: SENNA 8.6 MG TABLET PO SCH (09:00)
[2023-08-31] MEDS: DOCUSATE SODIUM 250 MG CAPSULE PO SCH (10:04)
[2023-08-31] MEDS: GABAPENTIN 300 MG CAPSULE PO SCH (10:04)
[2023-08-31] MEDS: MULTIVITAMIN W/MINERALS TABLET PO SCH (10:04)
[2023-08-31] MEDS: SENNA 8.6 MG TABLET PO SCH (10:04)
[2023-08-31] MEDS: guaiFENesin 600 MG TABLET PO SCH ×2 (10:04→20:58)
[2023-08-31] MEDS: MAGNESIUM OXIDE 400 MG TABLET PO SCH (10:04)
[2023-08-31] MEDS: METOPROLOL SUCCINATE 25 MG TABLET PO SCH ×2 (10:04→20:58)
[2023-08-31] MEDS: dexAMETHasone 4 MG TABLET PO SCH (10:05)
[2023-08-31] MEDS: CHLORHEXIDINE GLUCONATE 15 ML UDC PO SCH ×2 (10:05→20:58)
[2023-08-31] MEDS: ENOXAPARIN 40 MG/0.4 ML SYRINGE SUBQ SCH (10:06)
[2023-08-31] MEDS: polyethylene glycoL 3350 17 GM PACKET PO SCH (10:06)
[2023-08-31] MEDS: traZODone 50 MG TABLET PO SCH (20:58)
[2023-08-31] MEDS: INSULIN GLARGINE-YFGN 300 UNIT/3 ML PEN SUBQ SCH (20:59)
--- NOTE | 2023-09-01 00:03 | Discharge Plan ---
Discharge Plan Problem Reviewed?: Yes Disposition: Home, Self Care Condition: Stable Prescriptions: traZODone [Desyrel] 50 mg PO HS #30 tab Gabapentin [Neurontin] 300 mg PO HS #30 cap Metoprolol Succinate [Toprol Xl] 25 mg PO BID #60 tab Diet: Soft Activity Restrictions: Activity as Tolerated Shower Restrictions: No Driving Restrictions: Yes (No driving) Assistance Devices: Walker Weight Bearing: Full Weight Health Concerns: Katherin Foss is a 52-year-old woman with past medical history significant for diabetes mellitus type 2, myotonic dystrophy, paroxysmal atrial fibrillation. Patient presented to the emergency room on August 23, 2023. She was recently discharged from a prison facility approximately 2 weeks prior to her presentation to the emergency room. Patient's chief complaint was generalized weakness. She tested positive for COVID-19 in the emergency room. She was admitted to the hospital on August 23, 2023 and treated for dehydration. Treatment was initiated with remdesivir for COVID-19 infection. She has not been anticoagulated due to concerns with frequent falls and medication compliance. She required patient is on oxygen at home and she required oxygen during her hospitalization. On hospital day #5. Patient became somnolent and was transferred to the intensive care unit for close hemodynamic monitoring.Her remdesivir was discontinued and treatment was initiated with dexamethasone. Over the next several days, her ability to ambulate and to be more independent has significantly improved. Patient is now stable for discharge to home. Plan of Treatment: Take all medications as prescribed. Please do not take your losartan. Please maintain a strict diabetic diet. Please follow-up with your primary care physician. Care Goals: Goal is to return to independent functioning. 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 Patient mental status continues to improve. (4) Myotonic Dystrophy Continue supportive care (5) Leukopenia Resolved (6) DM Type 2 Plan: Continue home regiment for diabetes (7) A fib Plan: Continue metoprolol for rate control (8) LBBB This is chronic for her CODE Status: DNR Additional Instructions or Follow Up instructions: Recommend obtaining a flu shot and COVID-19 vaccine booster Follow-Up Care: Home Health - RN, Home Health - PT, Home Health - OT No Smoking: If you smoke, Please STOP! Call for help. Follow-up with: Naty Lenz ARNP [Primary Care Provider] -
--- NOTE | 2023-09-01 00:50 | DISCHARGE SUMMARY ---
<Amol Trujillo - Last Filed: 09/01/23 00:53> Discharge Summary Admit Date: 08/23/23 Discharge Date: 09/01/23 Primary Care Provider: Naty Lenz Code Status: Do Not Attempt Resuscitation Condition at Discharge: Stable Discharge Disposition: 01 Home, Self Care - DIAGNOSES Admission Diagnoses: Acute respiratory failure with hypoxia Discharge Diagnoses with Status of Each Condition: 1. COVID-19 infection resolved 2. Confusion resolved 3. Myotonic dystrophy chronic 4. Leukopenia resolved 5. Diabetes mellitus type 2 chronic 6. Atrial fibrillation chronic 7. Left Bundle Branch Block chronic - HPI History of Present Illness: Katherin Foss is a 52-year-old woman with past medical history significant for diabetes mellitus type 2, myotonic dystrophy, paroxysmal atrial fibrillation. Patient presented to the emergency room on August 23, 2023. She was recently discharged from a custodial facility approximately 2 weeks prior to her presentation to the emergency room. Patient's chief complaint was generalized weakness. She tested positive for COVID-19 in the emergency room. She was admitted to the hospital on August 23, 2023 and treated for dehydration. Treatment was initiated with remdesivir for COVID-19 infection. She has not been anticoagulated due to concerns with frequent falls and medication compliance. She required patient is on oxygen at home and she required oxygen during her hospitalization. On hospital day #5. Patient became somnolent and was transferred to the intensive care unit for close hemodynamic monitoring.Her remdesivir was discontinued and treatment was initiated with dexamethasone. Over the next several days, her ability to ambulate and to be more independent has significantly improved. Patient is now stable for discharge to home. - HOSPITAL COURSE Hospital Course: See HPI - ALLERGIES Allergies/Adverse Reactions: Allergies Allergy/AdvReac Type Severity Reaction Status Date / Time amoxicillin AdvReac Rash Verified 08/22/23 18:03 Sulfa (Sulfonamide AdvReac Hives Verified 08/22/23 18:03 Antibiotics) - MEDICATIONS Home Medications: Ambulatory Orders Medication Instructions Recorded Confirmed Simvastatin [Zocor] 10 mg PO DAILY 06/09/23 08/23/23 Tocopheryl [Vitamin E] 400 unit PO DAILY 06/10/23 08/23/23 Vitamin B Complex 1 each PO DAILY 06/10/23 08/23/23 Liraglutide [Victoza 2-Pal] 1.2 mg SUBQ DAILY PM 08/23/23 08/23/23 Insulin Glargine-Yfgn [Semglee] 20 unit SUBQ BID 08/25/23 08/25/23 Insulin Lispro [Humalog Kwikpen 6 unit SUBQ TIDWM 08/25/23 08/25/23 U-100] Gabapentin [Neurontin] 300 mg PO HS #30 cap 09/01/23 Metoprolol Succinate [Toprol Xl] 25 mg PO BID #60 tab 09/01/23 traZODone [Desyrel] 50 mg PO HS #30 tab 09/01/23 - LABS Result Diagrams: 08/31/23 07:22 08/31/23 07:22 <Ashely Foster - Last Filed: 09/01/23 09:14> Discharge Summary Discharging Provider: Dr Ashely Foster Code Status: Do Not Attempt Resuscitation - PHYSICAL EXAM AT DISCHARGE General Appearance: positive: No acute distress, Alert, Other (Disheveled) Eyes Bilateral: positive: Normal inspection, EOMI ENT: positive: ENT inspection nml, No signs of dehydration Neck: positive: Nml inspection, No JVD Respiratory: positive: No respiratory distress Cardiovascular: positive: No murmur, Irregularly irregular Abdomen: positive: Non-tender, No distention Skin: positive: Warm, Dry Extremities: positive: Non-tender, Other (1+ pre-tibial edema) Neurologic/Psychiatric: positive: Oriented x3, Other (Bradykinetic and has generalized weakness and poor memory) - LABS Result Diagrams: 08/31/23 07:22 08/31/23 07:22 - DIAGNOSTIC IMAGING Diagnostic Imaging Results: Final report reviewed - FOLLOW UP Follow Up: See PCP for a hospital F/U visit. - TIME SPENT Time Spent in Discharge (Minutes): 35
--- NOTE | 2023-09-01 01:03 | PROVIDER PROGRESS NOTE ---
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 Remdesivir completed (2) COVID-19 Plan: Remdesivir completed Continue Decadron for total of 10 days or until discharge Isolation precautions are ordered (3) Confusion 1:1 monitoring. Patient mental status continues to improve. (4) Myotonic Dystrophy Continue supportive care (5) Leukopenia Continue to monitor CBC (6) DM Type 2 Plan: Continue diabetic diet, fingerstick checks, SS Insiulin coverage, Hypoglycemia protocol (7) A fib Plan: Continue metoprolol for rate control (8) LBBB This is chronic for her Family Discussion: A family discussion with myself, Katherin sister and her mother took place yesterday. They wanted to ensure that patient could walk to the bathroom independently prior to coming home. They would like to have home health in place prior to discharging to home. They would also like to obtain some oxygen bottles for backup. Alternatively patient [place] go to a [place] facility but is reluctant to do so. She has not had her COVID-19 vaccine or her flu vaccine this year. CODE Status: DNR - Current Meds Current Meds: Current Medications Generic Name Dose Route Start Last Admin Trade Name Freq PRN Reason Stop Dose Admin Acetaminophen 650 mg 08/23/23 01:54 08/31/23 06:12 Acetaminophen 325 Mg Tablet PO 650 mg Q4HR PRN Administration Pain 1 to 4, or Fever Chlorhexidine Gluconate 15 ml 08/26/23 21:00 08/31/23 20:58 Chlorhexidine Gluconate 15 Ml Udc PO 15 ml BID PEREZ Administration Dexamethasone 6 mg 08/26/23 13:00 08/31/23 10:05 Dexamethasone 4 Mg Tablet PO 6 mg DAILY PEREZ Administration Docusate Sodium 250 - 500 mg 08/30/23 13:00 08/31/23 10:04 Docusate Sodium 250 Mg Capsule PO 500 mg DAILY PEREZ Administration Enoxaparin Sodium 40 mg 08/23/23 09:00 08/31/23 10:06 Enoxaparin 40 Mg/0.4 Ml Syringe SUBQ 40 mg DAILY PEREZ Administration Gabapentin 300 mg 08/24/23 09:00 08/31/23 10:04 Gabapentin 300 Mg Capsule PO 300 mg DAILY PEREZ Administration Guaifenesin 600 mg 08/23/23 21:00 08/31/23 20:58 Guaifenesin 600 Mg Tablet PO 600 mg BID PEREZ Administration Insulin Glargine-yfgn 20 unit 08/29/23 21:00 08/31/23 20:59 Insulin Glargine-Yfgn 300 Unit/3 Ml Pen SUBQ 20 unit QPM PEREZ Administration Insulin Human Lispro 3 - 11 unit 08/29/23 17:00 08/31/23 20:58 Insulin Lispro 300 Unit/3 Ml Pen SUBQ 11 unit 0800,1200,1700,2100 PEREZ Administration Protocol Magnesium Oxide 400 mg 08/25/23 20:00 08/31/23 10:04 Magnesium Oxide 400 Mg Tablet PO 400 mg DAILYWM PEREZ Administration Metoprolol Succinate 25 mg 08/24/23 21:00 08/31/23 20:58 Metoprolol Succinate 25 Mg Tablet PO 25 mg BID PEREZ Administration Multivitamins/Minerals 1 tab 08/26/23 17:00 08/31/23 10:04 Multivitamin W/Minerals Tablet PO 1 tab DAILYWM PEREZ Administration Polyethylene Glycol 17 gm 08/26/23 09:00 08/31/23 10:06 Polyethylene Glycol 3350 17 Gm Packet PO Not Given DAILY PEREZ Senna 8.6 - 17.2 mg 08/30/23 15:00 08/31/23 10:04 Senna 8.6 Mg Tablet PO 8.6 mg DAILY PEREZ Administration Trazodone HCl 50 mg 08/29/23 21:00 08/31/23 20:58 Trazodone 50 Mg Tablet PO 50 mg HS PEREZ Administration - Lab Result Fish Bone Diagrams: 08/31/23 07:22 08/31/23 07:22 Subjective - Subjective Patient Reports: Other (Alert. Mental status markedly improved. She reports she is ambulating with assistance. She has no other complaints at this time.) Objective Vital Signs: Vital Signs - 24 hr 08/31/23 08/31/23 08/31/23 03:16 07:59 08:19 Temperature 36.6 C 36.5 C Heart Rate [ 69 77 Brachial] Respiratory 17 16 Rate Blood Pressure 110/75 113/57 L [Right Brachial artery] O2 Saturation 94 93 If not protocol 1 2 : Oxygen Flow, liters/minute 08/31/23 08/31/23 11:59 15:31 Temperature 36.6 C Heart Rate [ 54 L Brachial] Respiratory 15 Rate Blood Pressure 99/64 [Right Brachial artery] O2 Saturation 92 90 L If not protocol : Oxygen Flow, liters/minute Oxygen O2 Source Room air I&O (Last 24 Hrs): Intake and Output Totals x24h 08/30/23 08/31/23 09/01/23 23:59 23:59 23:59 Intake Total 1140 1480 Balance 1140 1480 General: Alert, Oriented x3, Cooperative, No acute distress HEENT: Atraumatic, PERRLA, EOMI Neck: Supple, No JVD, No thyromegaly Lymphatic: no adenopathy Neuro: Non Focal Cardiovascular: Regular rate, Normal S1, Normal S2, No murmurs Respiratory: Chest non-tender, No respiratory distress, Other (Improved air exchange in all lung calloway no wheezing. No crackles.) Abdomen: Normal bowel sounds, No tenderness Extremities: No clubbing, No cyanosis Skin: No rashes - Results Results: Laboratory Results WBC 7.0 x10^3/uL (4.8-10.8) 08/31/23 07:22 RBC 5.19 10^6/uL (4.20-5.40) 08/31/23 07:22 Hgb 13.5 g/dL (12.0-16.0) 08/31/23 07:22 Hct 45.1 % (37.0-47.0) 08/31/23 07:22 MCV 86.9 fL (81.0-99.0) 08/31/23 07:22 MCH 26.0 pg (27.0-31.0) L 08/31/23 07:22 MCHC 29.9 g/dL (32.0-36.0) L 08/31/23 07:22 RDW 16.5 % (12.0-15.0) H 08/31/23 07:22 Plt Count 325 10^3/uL (130-450) 08/31/23 07:22 MPV 10.3 fL (7.9-10.8) 08/31/23 07:22 Neut # (Auto) 4.2 10^3/uL (1.5-6.6) 08/31/23 07:22 Lymph # (Auto) 2.2 10^3/uL (1.5-3.5) 08/31/23 07:22 George # (Auto) 0.6 10^3/uL (0.0-1.0) 08/31/23 07:22 Eos # (Auto) 0.0 10^3/uL (0.0-0.7) 08/31/23 07:22 Baso # (Auto) 0.0 10^3/uL (0.0-0.1) 08/31/23 07:22 Absolute Nucleated RBC 0.00 x10^3/uL 08/31/23 07:22 Total Counted 100 08/25/23 05:33 Band Neuts % (Manual) 0 % (0-10) 08/25/23 05:33 Reactive Lymphs % (Man) 10 % 08/24/23 05:39 Abnorm Lymph % (Manual) 0 % 08/25/23 05:33 Nucleated RBC % 0.0 /100WBC 08/31/23 07:22 Neutrophils # (Manual) 2.7 10^3/uL (1.5-6.6) 08/25/23 05:33 Lymphocytes # (Manual) 0.9 10^3/uL (1.5-3.5) L 08/25/23 05:33 Monocytes # (Manual) 0.4 10^3/uL (0.0-1.0) 08/25/23 05:33 Eosinophils # (Manual) 0.0 10^3/uL (0-0.7) 08/25/23 05:33 Basophils # (Manual) 0.0 10^3/uL (0-0.1) 08/25/23 05:33 Differential Comment MANUAL DIFFERENTIAL 08/25/23 05:33 Manual Slide Review Indicated 08/22/23 18:20 Platelet Estimate NORMAL (130-450,000) (NORMAL) 08/25/23 05:33 Platelet Morphology NORMAL APPEARANCE (NORMAL) 08/24/23 05:39 RBC Morph Micro Appear NORMAL APPEARANCE (NORMAL) 08/25/23 05:33 Bld Gas Analysis Time 1330 08/26/23 13:30 Sample Site LEFT RADIAL 08/26/23 13:30 ABG pH 7.32 (7.35-7.45) L 08/26/23 13:30 ABG pCO2 70 mmHg (34-45) H* 08/26/23 13:30 ABG pO2 77 mmHg (80-100) L 08/26/23 13:30 ABG HCO3 35.5 mmol/L (22.0-26.0) H 08/26/23 13:30 ABG Total CO2 37.6 MMOL/L (21.0-29.0) H 08/26/23 13:30 ABG O2 Saturation 94 % (94-98) 08/26/23 13:30 ABG Base Excess 7.3 mmol/L (-2.0-3.0) H 08/26/23 13:30 Davie Test POSITIVE 08/26/23 13:30 VBG pH 7.455 (7.31-7.41) H 08/27/23 04:38 Ionized Calcium 1.16 mmol/L (1.15-1.33) 08/27/23 04:38 O2 Delivery Device NASAL CANNULA 08/26/23 13:30 O2 Liters/Min 5.00 LPM 08/26/23 13:30 Sodium 142 mmol/L (135-145) 08/31/23 07:22 Potassium 4.1 mmol/L (3.5-4.5) 08/31/23 07:22 Chloride 100 mmol/L (101-111) L 08/31/23 07:22 Carbon Dioxide 39 mmol/L (21-32) H* 08/31/23 07:22 Anion Gap 3.0 (6-13) L 08/31/23 07:22 BUN 15 mg/dL (6-20) 08/31/23 07:22 Creatinine 0.5 mg/dL (0.6-1.3) L 08/31/23 07:22 Estimated GFR (MDRD) 129 (>89) 08/31/23 07:22 Glucose 162 mg/dL (74-104) H 08/31/23 07:22 Estimat Average Glucose 174 mg/dL (70-100) H 08/27/23 04:38 Hemoglobin A1c % 7.7 % (4.27-6.07) H 08/27/23 04:38 Lactic Acid 0.7 mmol/L (0.5-2.2) 08/22/23 18:35 Calcium 10.3 mg/dL (8.5-10.3) 08/31/23 07:22 Phosphorus 3.9 mg/dL (2.5-5.0) 08/27/23 19:04 Magnesium 1.8 mg/dL (1.7-2.3) 08/28/23 08:00 Total Bilirubin 0.6 mg/dL (0.2-1.0) 08/22/23 18:20 AST 29 IU/L (10-42) 08/22/23 18:20 ALT 11 IU/L (10-60) 08/22/23 18:20 Alkaline Phosphatase 61 IU/L (42-121) 08/22/23 18:20 Troponin I High Sens 58.3 ng/L (2.3-14.8) H* 08/22/23 21:19 B-Natriuretic Peptide 62 pg/mL (5-100) 08/22/23 18:20 Total Protein 6.2 g/dL (6.4-8.9) L 08/22/23 18:20 Albumin 3.4 g/dL (3.2-5.5) 08/22/23 18:20 Globulin 2.8 g/dL (2.1-4.2) 08/22/23 18:20 Albumin/Globulin Ratio 1.2 (1.0-2.2) 08/22/23 18:20 Lipase 38 U/L (11-82) 08/22/23 18:20 Urine Color DARK YELLOW 08/22/23 23:03 Urine Clarity CLEAR (CLEAR) 08/22/23 23:03 Urine pH 6.0 PH (5.0-7.5) 08/22/23 23:03 Ur Specific [place] 1.020 (1.002-1.030) 08/22/23 23:03 Urine Protein TRACE mg/dL (NEGATIVE) 08/22/23 23:03 Urine Glucose (UA) NEGATIVE mg/dL (NEGATIVE) 08/22/23 23:03 Urine Ketones NEGATIVE mg/dL (NEGATIVE) 08/22/23 23:03 Urine Occult Blood NEGATIVE (NEGATIVE) 08/22/23 23:03 Urine Nitrite NEGATIVE (NEGATIVE) 08/22/23 23:03 Urine Bilirubin NEGATIVE (NEGATIVE) 08/22/23 23:03 Urine Urobilinogen 1 (NORMAL) E.U./dL (NORMAL) 08/22/23 23:03 Ur Leukocyte Esterase NEGATIVE (NEGATIVE) 08/22/23 23:03 Ur Microscopic Review NOT INDICATED 08/22/23 23:03 Urine Culture Comments NOT INDICATED 08/22/23 23:03 Nasal Adenovirus (PCR) NOT DETECTED 08/22/23 21:50 Nasal B. parapertussis DNA (PCR) NOT DETECTED 08/22/23 21:50 Nasal Coronavir 229E PCR NOT DETECTED 08/22/23 21:50 Nasal Coronavir HKU1 PCR NOT DETECTED 08/22/23 21:50 Nasal Coronavir NL63 PCR NOT DETECTED 08/22/23 21:50 Nasal Coronavir OC43 PCR NOT DETECTED 08/22/23 21:50 Nasal Enterovir/Rhinovir PCR NOT DETECTED 08/22/23 21:50 Nasal Influenza B PCR NOT DETECTED 08/22/23 21:50 Nasal Influenza A PCR NOT DETECTED 08/22/23 21:50 Nasal Parainfluen 1 PCR NOT DETECTED 08/22/23 21:50 Nasal Parainfluen 2 PCR NOT DETECTED 08/22/23 21:50 Nasal Parainfluen 3 PCR NOT DETECTED 08/22/23 21:50 Nasal Parainfluen 4 PCR NOT DETECTED 08/22/23 21:50 Nasal RSV (PCR) NOT DETECTED 08/22/23 21:50 Nasal B.pertussis DNA PCR NOT DETECTED 08/22/23 21:50 Nasal C.pneumoniae (PCR) NOT DETECTED 08/22/23 21:50 Amish Human Metapneumo PCR NOT DETECTED 08/22/23 21:50 Nasal M.pneumoniae (PCR) NOT DETECTED 08/22/23 21:50 Nasal SARS-CoV-2 (PCR) DETECTED A 08/22/23 21:50 - Procedures Procedures: Procedures INSERTION OF INFUSION DEV INTO SUP VENA CAVA, PERC APPROACH (06/09/23) ABX Reporting Has patient been on IV antibiotics over the past 48 hours?: No Current Medications - Current Medications Current Medications: Active Medications Acetaminophen (Acetaminophen 325 Mg Tablet) 650 mg PO Q4HR PRN PRN Reason: Pain 1 to 4, or Fever Last Admin: 08/31/23 06:12 Dose: 650 mg Chlorhexidine Gluconate (Chlorhexidine Gluconate 15 Ml Udc) 15 ml PO BID [facility] Last Admin: 08/31/23 20:58 Dose: 15 ml Dexamethasone (Dexamethasone 4 Mg Tablet) 6 mg PO DAILY [facility] Last Admin: 08/31/23 10:05 Dose: 6 mg Docusate Sodium (Docusate Sodium 250 Mg Capsule) 250 - 500 mg PO DAILY [facility] Last Admin: 08/31/23 10:04 Dose: 500 mg Enoxaparin Sodium (Enoxaparin 40 Mg/0.4 Ml Syringe) 40 mg SUBQ DAILY [facility] Last Admin: 08/31/23 10:06 Dose: 40 mg Gabapentin (Gabapentin 300 Mg Capsule) 300 mg PO DAILY [facility] Last Admin: 08/31/23 10:04 Dose: 300 mg Guaifenesin (Guaifenesin 600 Mg Tablet) 600 mg PO BID [facility] Last Admin: 08/31/23 20:58 Dose: 600 mg Insulin Glargine-yfgn (Insulin Glargine-Yfgn 300 Unit/3 Ml Pen) 20 unit SUBQ QPM [facility] Last Admin: 08/31/23 20:59 Dose: 20 unit Insulin Human Lispro (Insulin Lispro 300 Unit/3 Ml Pen) 3 - 11 unit SUBQ 0800,1200,1700,2100 [facility]; Protocol Last Admin: 08/31/23 20:58 Dose: 11 unit Magnesium Oxide (Magnesium Oxide 400 Mg Tablet) 400 mg PO DAILYWM [facility] Last Admin: 08/31/23 10:04 Dose: 400 mg Metoprolol Succinate (Metoprolol Succinate 25 Mg Tablet) 25 mg PO BID [facility] Last Admin: 08/31/23 20:58 Dose: 25 mg Multivitamins/Minerals (Multivitamin W/Minerals Tablet) 1 tab PO DAILYWM [facility] Last Admin: 08/31/23 10:04 Dose: 1 tab Polyethylene Glycol (Polyethylene Glycol 3350 17 Gm Packet) 17 gm PO DAILY [facility] Last Admin: 08/31/23 10:06 Dose: Not Given Senna (Senna 8.6 Mg Tablet) 8.6 - 17.2 mg PO DAILY [facility] Last Admin: 08/31/23 10:04 Dose: 8.6 mg Trazodone HCl (Trazodone 50 Mg Tablet) 50 mg PO HS [facility] Last Admin: 08/31/23 20:58 Dose: 50 mg Simvastatin [Zocor] 10 mg PO DAILY 06/09/23 Tocopheryl [Vitamin E] 400 unit PO DAILY 06/10/23 Vitamin B Complex 1 each PO DAILY 06/10/23 Liraglutide [Victoza 2-Pal] 1.2 mg SUBQ DAILY PM 08/23/23 Insulin Glargine-Yfgn [Semglee] 20 unit SUBQ BID 08/25/23 Insulin Lispro [Humalog Kwikpen U-100] 6 unit SUBQ TIDWM 08/25/23
[2023-09-01 07:44] VITALS: BP 95/62; O2SAT 90
[2023-09-01] MEDS: INSULIN LISPRO 300 UNIT/3 ML PEN SUBQ SCH (08:23)
--- NOTE | 2023-09-01 09:07 | Discharge Plan ---
Discharge Plan Problem Reviewed?: Yes Disposition: Home, Self Care Condition: Stable Prescriptions: traZODone [Desyrel] 50 mg PO HS #30 tab Gabapentin [Neurontin] 300 mg PO HS #30 cap Metoprolol Succinate [Toprol Xl] 25 mg PO BID #60 tab Diet: Diabetic Activity Restrictions: Activity as Tolerated Shower Restrictions: No Driving Restrictions: Yes (No driving) Assistance Devices: Walker Weight Bearing: Full Weight Health Concerns: Katherin Foss presented to the emergency room with chief complaint of generalized weakness and confusion, tested positive for COVID-19 in the emergency room and had low oxygen levels, needing supplemental O2. Treatment was initiated with Remdesivir and Decadron (steroid), and she slowly got better. Plan of Treatment: Take all medications as prescribed except please NO LONGER take your losartan. Please eat a strict diabetic diet. Please follow-up with your primary care physician. Recommend obtaining a flu shot and COVID-19 vaccine booster Care Goals: Goal is to return to independent functioning. Assessment: Patient understands and is agreeable with the plan. Additional Instructions or Follow Up instructions: If you have new or worsening symptoms, call your Primary Care Provider for advice, or come to the ER. No Smoking: If you smoke, Please STOP! Call for help. Follow-up with: Naty Lenz ARNP [Primary Care Provider] -
[2023-09-01] MEDS: GABAPENTIN 300 MG CAPSULE PO SCH (10:30)
[2023-09-01] MEDS: MAGNESIUM OXIDE 400 MG TABLET PO SCH (10:30)
[2023-09-01] MEDS: dexAMETHasone 4 MG TABLET PO SCH (10:30)
[2023-09-01] MEDS: METOPROLOL SUCCINATE 25 MG TABLET PO SCH (10:30)
[2023-09-01] MEDS: ENOXAPARIN 40 MG/0.4 ML SYRINGE SUBQ SCH (10:31)
[2023-09-01] MEDS: CHLORHEXIDINE GLUCONATE 15 ML UDC PO SCH (10:31)
[2023-09-01] MEDS: DOCUSATE SODIUM 250 MG CAPSULE PO SCH (10:31)
[2023-09-01] MEDS: guaiFENesin 600 MG TABLET PO SCH (10:31)
[2023-09-01] MEDS: MULTIVITAMIN W/MINERALS TABLET PO SCH (10:31)
[2023-09-01] MEDS: polyethylene glycoL 3350 17 GM PACKET PO SCH (10:32)
[2023-09-01] MEDS: SENNA 8.6 MG TABLET PO SCH (10:32)
--- NOTE | 2023-09-03 08:27 | DISCHARGE SUMMARY ---
Discharge Summary Admit Date: 08/23/23 Discharge Date: 09/01/23 Discharging Provider: Dr Ashely Foster Primary Care Provider: CHANDAN Lenz Condition at Discharge: Stable Discharge Disposition: 01 Home, Self Care - [facility] History of Present Illness: Ms Foss is a 52 yo F with hx DM II, myotonic dystrophy, paroxysmal A fib (new onset A fib diagnosed at last hospital admission). She had recent hospitalization 06/09/23-07/07/23, was discharged to SNF. She was discharged home from SNF approximately 2 weeks ago. Has been using a walker and ambulating with assistance since discharge from SNF, prior baseline was independent ambulation with a cane. She presents to ER today via EMS for generalized weakness. Per family patient has had decreased PO intake, more tired/lethargic, confused at times and missing doses of insulin. Has been bedbound for the past 2-3 days due to generalized weakness. Patients said that her mother, who she lives with and mother is her caregiver, has also been sick. She denies fevers, but did have chills. Denies abd pain, n/v. Had some mild diarrhea which has improved. Denies cp, sob. Reports chronic cough which is unchanged. Chest x-ray shows moderate diffuse lung disease representing infection and/or edema, particularly in the left mid region. possible small effusions. Her respiratory PCR panel is positive for COVID. This patient already has a tenuous respiratory status, uses oxygen at home (3 L nasal cannula per minute). In the emergency department, her pulse ox is 90 to 93% with the 3 L nasal cannula supplement oxygen, but she becomes very short of breath, tachypneic, and having to speak in 1-2 word sentences with any movement such as moving around in the bed. During her ED stay, she tries to get up out of the bed and is definitely confused (AMS). She will be admitted to treat COVID PNA, acute on chronic hypoxia and AMS in a Myotonic dystrophy patient with basline hypopnea. Her CODE NOEMI riley is DNR. - HOSPITAL COURSE Hospital Course: 1. Acute resp failure with hypoxia She required supplemental to O2 with settings as high as 5 liters per minute. Slowly this was titrated down for her to be on room air and just use supplemental O2 as needed which was already ordered to use at home. 2. COVID-19 infection She was put on remdesivir, IV Decadron, Mucinex for expectorant and supplemental O2. She was in respiratory isolation 3. 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 Confusion When she is hypoxic she tends to pull off her supplemental O2 which makes her more hypoxic and even more confused. She needed 1:1 monitoring. This cycle of hypoxia causing confusion eventually improved as her oxygenation improved, and the confusion resolved 5. Leukopenia This was felt to be from the viral infection. It resolved. 6. Diabetes mellitus type 2 She was put on a diabetic diet, and sliding scale insulin coverage for fingerstick checks 7. Atrial fibrillation This is now chronic for her since the last admission. She is on meds for rate control. She is not on meds for anticoagulation due to her confusion and increased risk of falls. 8. Left Bundle Branch Block chronic Chronic finding on EKG. - ALLERGIES Allergies/Adverse Reactions: Allergies Allergy/AdvReac Type Severity Reaction Status Date / Time amoxicillin AdvReac Rash Verified 08/22/23 18:03 Sulfa (Sulfonamide AdvReac Hives Verified 08/22/23 18:03 Antibiotics) - MEDICATIONS Home Medications: Ambulatory Orders Medication Instructions Recorded Confirmed Simvastatin [Zocor] 10 mg PO DAILY 06/09/23 08/23/23 Tocopheryl [Vitamin E] 400 unit PO DAILY 06/10/23 08/23/23 Vitamin B Complex 1 each PO DAILY 06/10/23 08/23/23 Liraglutide [Victoza 2-Pal] 1.2 mg SUBQ DAILY PM 08/23/23 08/23/23 Insulin Glargine-Yfgn [Semglee] 20 unit SUBQ BID 08/25/23 08/25/23 Insulin Lispro [Humalog Kwikpen 6 unit SUBQ TIDWM 08/25/23 08/25/23 U-100] Gabapentin [Neurontin] 300 mg PO HS #30 cap 09/01/23 Metoprolol Succinate [Toprol Xl] 25 mg PO BID #60 tab 09/01/23 traZODone [Desyrel] 50 mg PO HS #30 tab 09/01/23 - PHYSICAL EXAM AT DISCHARGE General Appearance: positive: No acute distress, Alert, Other (Disheveled) Eyes Bilateral: positive: Normal inspection, Other (Slight lid lag present bilaterally equally) ENT: positive: No signs of dehydration Neck: positive: Nml inspection, No JVD Respiratory: positive: No respiratory distress Cardiovascular: positive: Irregularly irregular Abdomen: positive: Non-tender, No distention Skin: positive: Warm, Dry Extremities: positive: Non-tender, Other (Trace pretibial edema) Neurologic/Psychiatric: positive: Oriented x3, Weakness - LABS Result Diagrams: 08/31/23 07:22 08/31/23 07:22 - DIAGNOSTIC IMAGING Diagnostic Imaging Results: Final report reviewed - FOLLOW UP Follow Up: See PCP after discharge - TIME SPENT Time Spent in Discharge (Minutes): 40
== END 2023-09-01 11:10 | disposition home or self-care (01) | DRG 177 ==
LOC: EDUNIT# → ED 17:55 → MS2 08-23 01:54 → ICU 08-26 14:14 → MS2 08-27 16:49
PROVIDERS: ADMIT Student in an Organized Health Care Education/Training Program; ATTEND Internal Medicine
PROC: XW033E5 Introduction of Remdesivir Anti-infective into Peripheral Vein, Percutaneous Approach, New Technology Group 5 (ICD-10-PCS; principal; 2023-08-23)
PROC: 3E0333Z Introduction of Anti-inflammatory into Peripheral Vein, Percutaneous Approach (ICD-10-PCS; 2023-08-23)
DX: U07.1 COVID-19 (principal); J12.82 Pneumonia due to coronavirus disease 2019; R06.00 Dyspnea, unspecified; R79.89 Other specified abnormal findings of blood chemistry; J96.01 Acute respiratory failure with hypoxia; E11.9 Type 2 diabetes mellitus without complications; J96.02 Acute respiratory failure with hypercapnia; R41.82 Altered mental status, unspecified; Z99.81 Dependence on supplemental oxygen; I48.91 Unspecified atrial fibrillation; Z87.891 Personal history of nicotine dependence; G71.11 Myotonic muscular dystrophy; Y92.009 Unspecified place in unspecified non-institutional (private) residence as the place of occurrence of the external cause; R41.0 Disorientation, unspecified; Z79.4 Long term (current) use of insulin; I48.0 Paroxysmal atrial fibrillation; R53.1 Weakness; T50.916A Underdosing of multiple unspecified drugs, medicaments and biological substances, initial encounter; Z91.128 Patient's intentional underdosing of medication regimen for other reason; Z66 Do not resuscitate; I44.7 Left bundle-branch block, unspecified; E86.0 Dehydration; R63.0 Anorexia; Z68.32 Body mass index [BMI] 32.0-32.9, adult; E11.65 Type 2 diabetes mellitus with hyperglycemia; K59.04 Chronic idiopathic constipation
CPT/HCPCS: 36415; 36600; 71045; 80048; 80053; 81003; 82330; 82803; 83036; 83605; 83690; 83735; 83880; 84100; 84132; 84484; 85025; 87040; 87633; 93005; 93970; 97110; 97116; 97162; 97166; 97530; 97535; 99285; A9270; J1650; J1815; J8540; 81001; 87086

== ENCOUNTER 2023-09-21 11:56 | Outpatient (CLI) | payer MEDICARE ==
--- NOTE | 2023-09-21 13:17 | Ultrasound Report ---
PROCEDURE: Duplex Ext Veins Left INDICATIONS: LEFT LEG SWELLING AND PAIN TECHNIQUE: Real-time imaging, as well as color and pulse Doppler interrogation, were performed of the lower extr emity deep veins from the inguinal ligament to the popliteal fossa. Attempted visualization of the ca lf veins was performed. COMPARISON: Ultrasound duplex vein 08/23/2023 FINDINGS: There is thrombosis within the mid and distal superficial femoral vein extending to the per ziegler and posterior tibial veins. There is no compressibility. IMPRESSION: Deep venous thrombosis within the mid and distal from superficial femoral vein extending to the peroneal and posterior tibial veins. Findings were called to the ordering provider's office on 09/21/2023 at 12:30 PM. Reviewed by: Avis Jones MD on 09/21/2023 1:16 PM PST Approved by: Avis Jones MD on 09/21/2023 1:16 PM [facility] Station ID: [id number]
== END 2023-09-21 11:57 | disposition home or self-care (01) ==
LOC: DI 11:56
PROVIDERS: ATTEND Physician Assistant Medical
DX: I82.412 Acute embolism and thrombosis of left femoral vein (principal); I82.452 Acute embolism and thrombosis of left peroneal vein; I82.442 Acute embolism and thrombosis of left tibial vein

== ENCOUNTER 2023-09-21 13:11 | Emergency (ER) | payer MEDICARE ==
--- NOTE | 2023-09-21 13:39 | ED Physician Documentation ---
PD HPI LOWER EXT INJURY - Stated complaint Stated Complaint: LT LEG PX/ABN ULTRASOUND - Chief complaint Chief Complaint: Ext Problem - History obtained from History obtained from: Patient - Additional information Additional information: Patient is a 52-year-old female with a history of type 2 diabetes, Myotonic dystrophy,paroxysmal atrial fibrillation although not on anticoagulation presenting for evaluation for left lower extremity swelling For 2 weeks. She had an outpatient ultrasound that was ordered by the walk-in clinic last week which was performed today that shows a DVT. She was recently admitted to the hospital for acute respiratory failure with hypoxia and COVID.She denies history of falls or recent falls. She denies history of GI bleeds.She denies history of prior DVT. Denies history of PE. No chest pain or shortness of air. Review of Systems Constitutional: denies: Fever Cardiac: denies: Chest pain / pressure Respiratory: denies: Dyspnea GI: denies: Abdominal Pain Musculoskeletal: reports: Extremity swelling Neurologic: denies: Head injury PD PAST MEDICAL HISTORY - Past Medical History Past Medical History: Yes Cardiovascular: Atrial fibrillation Respiratory: None Neuro: Other Endocrine/Autoimmune: Type 2 diabetes GI: None ACUTE DIALYSIS REGISTERED NURSE: None : None HEENT: None Psych: None Musculoskeletal: Other Derm: None - Past Surgical History Past Surgical History: No - Present Medications Home Medications: Ambulatory Orders Medication Instructions Recorded Confirmed Simvastatin [Zocor] 10 mg PO DAILY 06/09/23 09/21/23 Tocopheryl [Vitamin E] 400 unit PO DAILY 06/10/23 09/21/23 Vitamin B Complex 1 each PO DAILY 06/10/23 09/21/23 Liraglutide [Victoza 2-Pal] 1.2 mg SUBQ DAILY PM 08/23/23 09/21/23 Insulin Glargine-Yfgn [Semglee] 20 unit SUBQ BID 08/25/23 09/21/23 Insulin Lispro [Humalog Kwikpen 6 unit SUBQ TIDWM 08/25/23 09/21/23 U-100] Gabapentin [Neurontin] 300 mg PO HS #30 cap 09/01/23 09/21/23 Metoprolol Succinate [Toprol Xl] 25 mg PO BID #60 tab 09/01/23 09/21/23 traZODone [Desyrel] 50 mg PO HS #30 tab 09/01/23 09/21/23 Apixaban [Eliquis] 10 mg ORAL BID 30 Days #74 tablet 09/21/23 - Allergies Allergies/Adverse Reactions: Allergies Allergy/AdvReac Type Severity Reaction Status Date / Time amoxicillin AdvReac Rash Verified 09/21/23 13:15 Sulfa (Sulfonamide AdvReac Hives Verified 09/21/23 13:15 Antibiotics) - Social History Does the pt smoke?: No Smoking Status: Never smoker Does the pt drink ETOH?: No Does the pt have substance abuse?: No - Immunizations Immunizations are current?: Yes - POLST Patient has POLST: Yes POLST Status: DNR PD ED PE NORMAL - General General: Alert and oriented X 3, No acute distress, Well developed/nourished - HEENT HEENT: Atraumatic, Moist mucous membranes, Pharynx benign - Neck Neck: Supple, no meningeal sign - Cardiac Cardiac: RRR, Strong equal pulses - Respiratory Respiratory: No respiratory distress, Clear bilaterally - Abdomen Abdomen: Soft - Derm Derm: Warm and dry - Extremities Extremities: Other (L leg swelling; distal pulses intact) - Neuro Neuro: Alert and oriented X 3, Normal speech Results - Vitals Vitals: Vital Signs - 24 hr 09/21/23 09/21/23 13:15 13:45 Temperature 36.8 C 36.7 C Heart Rate 100 89 Respiratory 16 16 Rate Blood Pressure 106/60 110/61 O2 Saturation 94 95 Oxygen O2 Source Room air PD Medical Decision Making - ED course ED course: Patient with outpatient study showing a left lower extremity DVT. No symptoms to suggest pulmonary embolism. Vital signs are stable. Patient has a history of she reports of a paroxysmal atrial fibrillation. She denies history of frequent falls, GI bleed. Mother is also at the bedside and confirms this. Discussed risks and benefits of anticoagulation. Patient understands that there is an increased risk of bleeding with these medications. She would like to go ahead and proceed and start taking these medications. She understands the need for close follow-up as well as concerning symptoms to return for. Departure - Departure Disposition: 01 Home, Self Care Clinical Impression: Left leg DVT Condition: Stable Instructions: ED DVT Prescriptions: Apixaban [Eliquis] 10 mg ORAL BID 30 Days #74 tablet Comments: Your outpatient ultrasound shows that you have a blood clot in your left leg which is causing your swelling. I am starting you on a blood thinner called Eliquis. I sent this prescription to [facility] in [place]. You do need close follow-up with your primary care provider to determine how long you will need to stay on the blood thinner or if you will need to stay on it indefinitely. Return to the emergency department with any concerning symptoms such as blood in your stools, fall with hitting her head or any other concerns. Forms: PCP List Discharge Date/Time: 09/21/23 13:44
[2023-09-21 13:51] VITALS: BP 110/61; O2SAT 95
== END 2023-09-21 13:44 | disposition home or self-care (01) ==
LOC: ED 13:11
DX: I82.402 Acute embolism and thrombosis of unspecified deep veins of left lower extremity (principal); I48.91 Unspecified atrial fibrillation; Z79.01 Long term (current) use of anticoagulants; E11.9 Type 2 diabetes mellitus without complications; Z79.4 Long term (current) use of insulin
CPT/HCPCS: 99282; 99283

== ENCOUNTER 2023-09-22 11:46 | Outpatient (CLI) | payer MEDICARE | END 2023-09-22 23:59 | disposition critical access hospital (66) | LOC: EMS 11:46 | DX: I82.402 Acute embolism and thrombosis of unspecified deep veins of left lower extremity (principal); M79.605 Pain in left leg; Z99.81 Dependence on supplemental oxygen | CPT/HCPCS: A0425; A0429 ==

== ENCOUNTER 2023-09-22 12:23 | Emergency (ER) | payer MEDICARE ==
[2023-09-22] MEDS ORDERED: APIXABAN 5 MG TABLET PO STA (12:51)
--- NOTE | 2023-09-22 12:54 | ED Physician Documentation ---
History of Present Illness - Stated complaint Stated Complaint: L LEG DVT/UNABLE TO GET MEDS - History obtained from History obtained from: Patient, EMS - History of Present Illness Pain level max: 0 Pain level now: 0 - Additonal information Additional information: 52-year-old female was seen here yesterday and had a left leg DVT on outpatient ultrasound. She was started on Eliquis. She states that the prescription was not sent to the pharmacy so she called EMS to come back to the emergency department. 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 : None HEENT: None Psych: None Musculoskeletal: Other Derm: None - Past Surgical History Past Surgical History: No - Present Medications Home Medications: Ambulatory Orders Medication Instructions Recorded Confirmed Simvastatin [Zocor] 10 mg PO DAILY 06/09/23 09/21/23 Tocopheryl [Vitamin E] 400 unit PO DAILY 06/10/23 09/21/23 Vitamin B Complex 1 each PO DAILY 06/10/23 09/21/23 Liraglutide [Victoza 2-Pla] 1.2 mg SUBQ DAILY PM 08/23/23 09/21/23 Insulin Glargine-Yfgn [Semglee] 20 unit SUBQ BID 08/25/23 09/21/23 Insulin Lispro [Humalog Kwikpen 6 unit SUBQ TIDWM 08/25/23 09/21/23 U-100] Gabapentin [Neurontin] 300 mg PO HS #30 cap 09/01/23 09/21/23 Metoprolol Succinate [Toprol Xl] 25 mg PO BID #60 tab 09/01/23 09/21/23 traZODone [Desyrel] 50 mg PO HS #30 tab 09/01/23 09/21/23 Apixaban [Eliquis] 10 mg ORAL BID 30 Days #74 tablet 09/21/23 - Allergies Allergies/Adverse Reactions: Allergies Allergy/AdvReac Type Severity Reaction Status Date / Time amoxicillin AdvReac Rash Verified 09/22/23 12:57 Sulfa (Sulfonamide AdvReac Hives Verified 09/22/23 12:57 Antibiotics) - Social History Does the pt smoke?: No Smoking Status: Never smoker Does the pt drink ETOH?: No Does the pt have substance abuse?: No - Immunizations Immunizations are current?: Yes - POLST Patient has POLST: Yes POLST Status: DNR PD ED PE NORMAL - Vitals Vital signs reviewed: Yes - General General: Alert and oriented X 3, No acute distress - HEENT HEENT: Moist mucous membranes - Neck Neck: Supple, no meningeal sign - Cardiac Cardiac: RRR - Respiratory Respiratory: No respiratory distress, Clear bilaterally - Abdomen Abdomen: Soft, Non tender, Non distended - Derm Derm: Warm and dry - Extremities Extremities: Other (1+ bilateral lower extremity pitting edema Normal skin appearance. Neurovascular intact) - Neuro Neuro: Alert and oriented X 3 Results - Vitals Vitals: Vital Signs - 24 hr 09/22/23 09/22/23 09/22/23 12:43 13:08 13:34 Temperature 36.7 C Heart Rate 92 96 Respiratory 18 15 17 Rate Blood Pressure 104/59 L O2 Saturation 95 95 If not protocol 2 : Oxygen Flow, liters/minute Oxygen O2 Source Nasal cannula PD Medical Decision Making - ED course Complexity details: reviewed old records, considered differential, d/w patient ED course: Patient was given a dose of Eliquis here for her known DVT. Confirmed that her prescription had been sent by the daytime physician this morning. It does not appear to have been sent by the physician yesterday. Patient has no new complaints. No shortness of breath, no chest pain. No skin changes. Recommend she take the medication as prescribed and follow-up with her PCP. Recommend if there are issues with the prescription to please have the pharmacy call so that we can ensure she gets her medication timely. Patient counseled regarding signs and symptoms for which I believe and urgent re-evaluation would be necessary. Patient with good understanding of and agreement to plan and is comfortable going home at this time This document was made in part using voice recognition software. While efforts are made to proofread this document, sound alike and grammatical errors may occur. Departure - Departure Disposition: Home, Self Care Clinical Impression: Left leg DVT Qualifiers: Affected thrombotic vein of extremity: unspecified vein of extremity Chronicity: acute Qualified Code(s): I82.402 - Acute embolism and thrombosis of unspecified deep veins of left lower extremity Condition: Good Instructions: ED DVT Follow-Up: your,doctor in 1 week [Other] Comments: I have verified that your previous her prescription was sent to [facility] in [place]. If they have issues filling the prescription or it is not covered by your insurance, please have the pharmacy call us directly so we can figure out a medication that is covered by your insurance. You were given your first dose of Eliquis here today. Forms: PCP List Discharge Date/Time: 09/22/23 13:35
[2023-09-22 12:58] VITALS: BP 104/59; O2SAT 95
== END 2023-09-22 13:35 | disposition home or self-care (01) ==
LOC: EDUNIT# → SUPCPDRO 12:23 → ED 12:23
DX: I82.402 Acute embolism and thrombosis of unspecified deep veins of left lower extremity (principal); I48.91 Unspecified atrial fibrillation; E11.9 Type 2 diabetes mellitus without complications; Z79.899 Other long term (current) drug therapy; Z79.4 Long term (current) use of insulin; Z66 Do not resuscitate
CPT/HCPCS: 99283; A9270

== ENCOUNTER 2024-02-17 12:54 | Outpatient (CLI) | payer MEDICARE | END 2024-02-17 23:59 | disposition critical access hospital (66) | LOC: EMS 12:54 | DX: M25.572 Pain in left ankle and joints of left foot (principal); S99.912A Unspecified injury of left ankle, initial encounter; W18.30XA Fall on same level, unspecified, initial encounter; Y92.000 Kitchen of unspecified non-institutional (private) residence as the place of occurrence of the external cause; Z79.01 Long term (current) use of anticoagulants | CPT/HCPCS: A0425; A0427 ==

== ENCOUNTER 2024-02-17 13:32 | Emergency (ER) | payer MEDICARE ==
--- NOTE | 2024-02-17 13:39 | ED Physician Documentation ---
History of Present Illness - Stated complaint Stated Complaint: ANKLE PX/POST FALL - Additonal information Additional information: 53-year-old female presented with left foot pain after a fall 4 days ago. The patient states she lost her balance in the kitchen and believes she twisted her foot and fell to the ground. She had ongoing pain and swelling today thus called EMS for evaluation. She is on anticoagulation and states she did bump her head fall but had no loss of consciousness, and has no headache, no confusion or alteration in mental status, no dizziness. She is here because of left foot pain. She has not attempted any treatment for this. Review of Systems Constitutional: reports: Reviewed and negative Eyes: reports: Reviewed and negative Ears: reports: Reviewed and negative Nose: reports: Reviewed and negative Throat: reports: Reviewed and negative Cardiac: reports: Reviewed and negative Respiratory: reports: Reviewed and negative GI: reports: Reviewed and negative : reports: Reviewed and negative Skin: reports: Reviewed and negative Musculoskeletal: reports: Extremity pain, Extremity swelling PD PAST MEDICAL HISTORY - Past Medical History Past Medical History: Yes Cardiovascular: Atrial fibrillation Respiratory: None Neuro: Other Endocrine/Autoimmune: Type 2 diabetes GI: None 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 : None HEENT: None Psych: None Musculoskeletal: Other Derm: None - Past Surgical History Past Surgical History: No - Present Medications Home Medications: Ambulatory Orders Medication Instructions Recorded Confirmed Simvastatin [Zocor] 10 mg PO DAILY 06/09/23 09/21/23 Tocopheryl [Vitamin E] 400 unit PO DAILY 06/10/23 09/21/23 Vitamin B Complex 1 each PO DAILY 06/10/23 09/21/23 Liraglutide [Victoza 2-Pal] 1.2 mg SUBQ DAILY PM 08/23/23 09/21/23 Insulin Glargine-Yfgn [Semglee] 20 unit SUBQ BID 08/25/23 09/21/23 Insulin Lispro [Humalog Kwikpen 6 unit SUBQ TIDWM 08/25/23 09/21/23 U-100] Gabapentin [Neurontin] 300 mg PO HS #30 cap 09/01/23 09/21/23 Metoprolol Succinate [Toprol Xl] 25 mg PO BID #60 tab 09/01/23 09/21/23 traZODone [Desyrel] 50 mg PO HS #30 tab 09/01/23 09/21/23 Apixaban [Eliquis] 10 mg ORAL BID 30 Days #74 tablet 09/21/23 - Allergies Allergies/Adverse Reactions: Allergies Allergy/AdvReac Type Severity Reaction Status Date / Time amoxicillin AdvReac Rash Verified 02/17/24 13:45 Sulfa (Sulfonamide AdvReac Hives Verified 02/17/24 13:45 Antibiotics) - Social History Does the pt smoke?: No Smoking Status: Never smoker Does the pt drink ETOH?: No Does the pt have substance abuse?: No - Immunizations Immunizations are current?: Yes - POLST Patient has POLST: Yes POLST Status: DNR PD ED PE NORMAL - Vitals Vital signs reviewed: Yes - General General: Alert and oriented X 3, No acute distress, Well developed/nourished - HEENT HEENT: Atraumatic, PERRL, EOMI, Moist mucous membranes - Neck Neck: Supple, no meningeal sign, No bony TTP - Derm Derm: Normal color, Warm and dry - Extremities Extremities: No deformity, Other (left ankle and foot swelling, no erythema. ttp left lat malleolus and base of 1st metatarsal. 2+ pedal pulses. normothermic. ) Results - Vitals Vitals: Vital Signs - 24 hr 02/17/24 02/17/24 13:39 15:11 Temperature 36.6 C Heart Rate 68 75 Respiratory 16 16 Rate Blood Pressure 105/50 L 106/54 L O2 Saturation 92 92 Oxygen O2 Source Room air - Rads (name of study) No standard instances Relevant Findings:: Final report received PD Medical Decision Making - ED course Complexity details: reviewed results, d/w patient ED course: 53-year-old female presented with left foot pain as described in HPI. She fell 4 days ago and has had ongoing foot pain and swelling during that time. On exam, she has tenderness of the left ankle and foot therefore x-rays were obtained which show Minimally displaced fracture of the right fifth metatarsal, no other acute findings. I placed the patient in a posterior splint advised her to utilize crutches, limit weightbearing until she follows up with orthopedics on outpatient basis. Recommended keeping elevated, using cool compress, and Tylenol as needed for pain. She will follow-up with orthopedics on outpatient basis and PCP as needed. Return precautions reviewed. Departure - Departure Disposition: 01 Home, Self Care Clinical Impression: Closed nondisplaced fracture of fifth left metatarsal bone Qualifiers: Encounter type: initial encounter Qualified Code(s): S92.355A - Nondisplaced fracture of fifth metatarsal bone, left foot, initial encounter for closed fracture Condition: Good Instructions: ED Crutch Walking, ED Fx Foot Follow-Up: Babar Sotelo MD [Provider Admit Priv/Credential] - Comments: You have a small fracture of the left fifth metatarsal (interestingly, you didn't have any pain there). We are placing you in a splint and are providing crutches. Please call and schedule orthopedic follow up. They likely will place you in a walking boot. Keep the leg elevated whenever possible, use cool compress, and Tylenol for pain. Forms: PCP List Discharge Date/Time: 02/17/24 15:13
[2024-02-17 13:50] VITALS: O2SAT 92
--- NOTE | 2024-02-17 14:11 | XRAY Report ---
PROCEDURE: Ankle 3+V LT INDICATIONS: fall injury TECHNIQUE: 3 views of the ankle were acquired. COMPARISON: None. FINDINGS: Bones: There is a chronic medial malleolar horizontal fracture. There is an acute minimally displace d base of fifth metatarsal fracture. Ankle mortise is intact. Soft tissues: No tibiotalar joint effusion. Achilles tendon appears normal. IMPRESSION: Acute minimally displaced base of fifth metatarsal fracture. Reviewed by: Ravinder Jensen MD on 02/17/2024 2:09 PM PDT Approved by: Ravinder Jensen MD on 02/17/2024 2:09 PM PDT Station ID: [id number]
--- NOTE | 2024-02-17 14:11 | XRAY Report ---
PROCEDURE: Foot 3+V LT INDICATIONS: fall injury TECHNIQUE: 3 views of the foot were acquired. COMPARISON: Left ankle from the same date. FINDINGS: Bones: Acute very minimally displaced base of fifth metatarsal fracture. No suspicious bony lesions. Soft tissues: No tibiotalar joint effusion. Achilles tendon appears normal. IMPRESSION: Acute very minimally displaced base of fifth metatarsal fracture. Reviewed by: Ravinder Jensen MD on 02/17/2024 2:10 PM PDT Approved by: Ravinder Jensen MD on 02/17/2024 2:10 PM PDT Station ID: [id number]
[2024-02-17 15:13] VITALS: BP 106/54
== END 2024-02-17 15:13 | disposition home or self-care (01) ==
LOC: EDUNIT# → ED 13:32
DX: S92.352A Displaced fracture of fifth metatarsal bone, left foot, initial encounter for closed fracture (principal); W01.0XXA Fall on same level from slipping, tripping and stumbling without subsequent striking against object, initial encounter; X50.1XXA Overexertion from prolonged static or awkward postures, initial encounter; Y93.89 Activity, other specified; Y92.000 Kitchen of unspecified non-institutional (private) residence as the place of occurrence of the external cause; Z66 Do not resuscitate
CPT/HCPCS: 99283

== ENCOUNTER 2024-03-31 11:20 | Outpatient (CLI) | payer MEDICARE ==
--- NOTE | 2024-03-31 21:56 | XRAY Report ---
PROCEDURE: Foot 3+V LT INDICATIONS: FRACTURE OF 5TH METATARSAL BONE,LEFT FOOT TECHNIQUE: 3 views of the foot were acquired. COMPARISON: 02/17/2024 FINDINGS: Bones: There is mild sclerosis at the previous fracture plane at the fifth metatarsal base. Fracture plane is partially seen on the lateral view only. There is trace adjacent callus. Bone alignment madhuri ins normal. There is mild disuse osteopenia. No suspicious bony lesions. Soft tissues: No tibiotalar joint effusion. Achilles tendon appears normal. Mild persistent forefo ot soft tissue swelling. IMPRESSION: Healing fifth metatarsal base fracture. Persistent mild forefoot soft tissue swelling. Reviewed by: Gabby Hernandez MD on 03/31/2024 9:55 PM PDT Approved by: Gabby Hernandez MD on 03/31/2024 9:55 PM PDT Station ID: [id number]
== END 2024-03-31 11:21 | disposition home or self-care (01) ==
LOC: DI.S 11:20
PROVIDERS: ATTEND Orthopaedic Surgery
DX: S92.355D Nondisplaced fracture of fifth metatarsal bone, left foot, subsequent encounter for fracture with routine healing (principal); R22.42 Localized swelling, mass and lump, left lower limb

== ENCOUNTER 2025-06-13 11:56 | Inpatient (IN) ==
--- NOTE | 2025-06-13 12:03 | ED Physician Documentation ---
PD HPI LOWER EXT INJURY Stated complaint Stated Complaint: SWOLLEN LEG/COPD Chief complaint Chief Complaint: Cardiac History obtained from History obtained from: Patient, Family (The patient was with her mother at home who is her primary caregiver.) and EMS (Medics report the mother had called them for concern of confusion and the patient and apparent dyspnea with laying flat. No fever or cough. She has increased edema in her legs over baseline, particularly of the left. History of DVT approximately 1-1/2 years ago and mother was concerned.) History of Present Illness PD HPI LOW EXT INJURY LOCATION: Left and Both Type of injury: No Fall or Twist Where injury occurred: Other (The patient is mostly wheelchair and bedbound due to muscular dystrophy. She actually denies any recent fall or injury but has had increased swelling in both legs, particularly the left.) Timing - onset: How many days ago (2-3) Timing - duration: Days (2-3) Timing - details: Gradual onset and Still present Worsened by: Palpating Associated symptoms: Weakness and Swelling; No Numbness Contributing factors: Anticoagulated Similar symptoms before: Diagnosis (similar symptoms about 1 1/2 years ago due to DVT/PE and atrial fib causing CHF. ) Meds/Allgy Home Medications Ambulatory Orders Medication Instructions Recorded Confirmed simvastatin 10 mg tablet (Zocor) 10 mg PO DAILY 09/21/23 vitamin B complex (B 1 ea PO DAILY 06/10/2309/21 Complex-Vitamin B12 tablet) vitamin E (dl, acetate) 180 mg 400 unit PO DAILY 06/1009/21/23 (400 unit) capsule liraglutide 0.6 mg/0.1 mL (18 mg/3 1.2 mg subcut DAILY PM 08/23/23 09/21/23 mL) subcutaneous pen injector (Victoza 2-Pal) insulin glargine-yfgn 100 unit/mL 20 unit subcut BID 0 08/25/23 09/21/23 (3 mL) subcutaneous pen insulin lispro 100 unit/mL 6 unit subcut TIDWM 4 09/21/23 subcutaneous pen (Humalog KwikPen (U-100) Insulin) gabapentin 300 mg capsule 300 mg PO HS #30 caps 09/21/23 metoprolol succinate 25 mg 25 mg PO BID Hypertension # 60 tabs 09/01/23 09/21/23 tablet,extended release 24 hr trazodone 50 mg tablet 50 mg PO HS #30 tabs 4 09/21/23 apixaban 5 mg tablet (Eliquis) 10 mg (2 x 5 mg) ORAL B ID 30 days 09/21/23 #74 tabs Allergies Allergies Allergy/AdvReac Type Severity Reaction Status Date / Time amoxicillin AdvReac Rash Verified 06/13/25 12:12 Sulfa (Sulfonamide AdvReac Hives Verified 06/13/25 12:12 Antibiotics) PFSH Active Problems All Active Problems (Updated 06/13/25 @ 18:20 by TRISH Del Real) Diabetes mellitus (Chronic) Atrial fibrillation (Chronic) Acute hypoxic respiratory failure (Acute) Confusion (Acute) Acute dyspnea (Acute) Hypoxia (Acute) Bilateral edema of lower extremity (Acute) CHF (congestive heart failure) (Acute) Myotonic dystrophy (Chronic) Social History Social History Smoking Status: Unknown if ever smoked If you are a former smoker, when did you quit? (Date/Year): 2002 Number of Years Smoked: 9 How many cigarettes a day do you smoke? (20 cigarettes=1 Pk): 30 Second hand tobacco smoke exposure: No Do you dip or chew tobacco?: No Do you vape?: No Patient requests smoking cessation consult: No Initiate information on smoking cessation: No Living arrangement: At home Living Condition: With family Level: Independent Do you feel safe in your home environment?: Yes History of physical, verbal, emotional, or financial abuse?: No Substance Use: denies use POLST Patient has POLST: Yes Exam Exam Vital Signs: Vital Signs x48h Temp Pulse Pulse Resp BP BP Pulse Ox 06/13/25 19:20 83 06/13/25 19:00 36.5 C 95 19 101/58 L 91 L 06/13/25 18:24 37.8 C 70 16 109/50 L 96 06/13/25 17:00 89 18 94/68 94 06/13/25 16:00 81 16 99/43 L 92 06/13/25 14:55 96 18 122/69 94 06/13/25 13:57 79 18 107/67 97 O2 Flow Rate 06/13/25 19:20 06/13/25 19:00 4 06/13/25 18:24 4 06/13/25 17:00 4 10/21/25 16:00 4 06/13/25 14:55 5 06/13/25 13:57 5 Constitutional normal general appearance, no apparent distress and abnormal body habitus (overweight) HENMT oropharynx normal and dentition abnormal (caries) Neck/C-Spine supple Lymph no lymphadenopathy noted Chest palpation of chest normal Respiratory abnormal respiratory effort (labored), rales noted (base), no retractions and no use of accessory muscles Cardiovascular normal heart rate noted, regular rhythm noted and edema noted (2-3+ edema in lower legs below knees, left more than right. ) Gastrointestinal abdomen soft to palpation, nontender to palpation and nondistended Neurology no focal motor deficit noted (general weakness noted) and no sensory deficits noted Psychiatry mental status abnormal (somnolent) (mild), thought process abnormality noted (confused) and affect abnormality noted (euphoric) Skin skin color normal and no rash Results Vitals Vitals: Vital Signs - 24 hr 06/13/25 12:06 06/13/25 12:12 06/13/25 13:15 Temperature 35.6 C L Temperature Source Temporal Artery Scan Pulse Rate 87 89 Pulse Rate [Monitoring electrodes] Respiratory Rate 18 20 Blood Pressure 128/77 115/66 Blood Pressure [Right Brachial artery] O2 Saturation 94 91 L Oxygen Delivery Method Nasal Cannula O2 Source Nasal cannula Nasal cannula If not protocol: Oxygen Flow, liters/minute 2 2 6 Fraction of Inspired Oxygen (FIO2) Sedation scale Pain Intensity 5 06/13/25 13:57 06/13/25 14:55 06/13/25 16:00 Temperature Temperature Source Pulse Rate 79 96 81 Pulse Rate [Monitoring electrodes] Respiratory Rate 18 18 16 Blood Pressure 107/67 122/69 99/43 L Blood Pressure [Right Brachial artery] O2 Saturation 97 94 92 Oxygen Delivery Method O2 Source Nasal cannula Nasal cannula Nasal cannula If not protocol: Oxygen Flow, liters/minute 5 5 4 Fraction of Inspired Oxygen (FIO2) Sedation scale Pain Intensity 3 3 0 06/13/25 17:00 06/13/25 18:24 06/13/25 19:00 Temperature 37.8 C 36.5 C Temperature Source Temporal Artery Scan Oral Pulse Rate 89 70 Pulse Rate [Monitoring electrodes] 95 Respiratory Rate 18 16 19 Blood Pressure 94/68 109/50 L Blood Pressure [Right Brachial artery] 101/58 L O2 Saturation 94 96 91 L Oxygen Delivery Method O2 Source Nasal cannula Nasal cannula Nasal cannula If not protocol: Oxygen Flow, liters/minute 4 4 4 Fraction of Inspired Oxygen (FIO2) Sedation scale 0-Fully awake Pain Intensity 0 0 06/13/25 19:20 Temperature Temperature Source Pulse Rate 83 Pulse Rate [Monitoring electrodes] Respiratory Rate Blood Pressure Blood Pressure [Right Brachial artery] O2 Saturation Oxygen Delivery Method O2 Source If not protocol: Oxygen Flow, liters/minute Fraction of Inspired Oxygen (FIO2) 50 Sedation scale Pain Intensity Oxygen O2 Source Nasal cannula Tele (time rhythm occurred) atrial fib with wide complex ventricular response. Rate controlled. : Telemetry / rhythm strip: Atrial fibrillation Labs Labs: Laboratory Tests 06/13/25 06/13/25 12:58 14:10 WBC 5.7 RBC 5.49 H Hgb 15.8 Hct 55.5 H MCV 101.1 H MCH 28.8 MCHC 28.5 L RDW 13.9 Plt Count 147 MPV 10.7 Neut # (Auto) 3.4 Lymph # (Auto) 1.6 [place] # (Auto) 0.5 Eos # (Auto) 0.1 Baso # (Auto) 0.0 Absolute Nucleated RBC 0.02 Nucleated RBC % 0.4 VBG pH 7.302 L VBG pCO2 84.5 H VBG pO2 32.8 VBG HCO3 42.2 H VBG Total CO2 44.8 H VBG O2 Saturation 47.0 L VBG Base Excess 15.6 H Sodium 141 Potassium 4.1 Chloride 98 L Carbon Dioxide 42 H* Anion Gap 1.0 L BUN 10 Creatinine 0.5 L Estimated GFR (MDRD) 128 Glucose 173 H Calcium 9.7 Magnesium 2.1 Total Bilirubin 0.7 AST 14 ALT 9 L Alkaline Phosphatase 92 B-Natriuretic Peptide 135 H Total Protein 6.6 Albumin 3.7 Globulin 2.9 Albumin/Globulin Ratio 1.3 Lipase 17 Procalcitonin Immunoas < 0.05 Rads (name of study) chest xray: Relevant Findings:: Final report received and EMP independent interpretation of test (apparent vascular congestion c/w CHF) Interpretation: EXAM: [id number] XR/CXR1VW ([id number]) PROCEDURE: XR Chest 1V INDICATIONS: cough and dyspnea TECHNIQUE: One view of the chest was acquired. COMPARISON: 08/22/2023 FINDINGS: Surgical changes and devices: None. Lungs and pleura: Diffuse increased interstitial markings. Low lung volumes. No effusions or pneumothorax. Mediastinum: Cardiomegaly. Normal contour otherwise. Bones and chest wall: No suspicious bony lesions. Overlying soft tissues appear unremarkable. IMPRESSION: Cardiomegaly with increased interstitial markings concerning for CHF. Reviewed by: Ulisses Rivera MD on 06/13/2025 1:[address]: Relevant Findings:: Final report received and EMP independent interpretation of test (no ICH) Interpretation: EXAM: [id number] CT/HEADWO ([id number]) PROCEDURE: CT Head WO INDICATIONS: fall, confused, on DOAC TECHNIQUE: CT of the head was performed, without intravenous contrast. Reformats: Coronal and sagittal. For radiation dose reduction, the following was used: automated exposure control, adjustment of mA and/or kV according to patient size. COMPARISON: None. FINDINGS: Image quality: Diagnostic. CSF spaces: Basal cisterns are patent. No extra-axial fluid collections. Ventricles are normal in size and shape. Brain: No midline shift. No intracranial mass effect or hemorrhage. Montero- white matter interface is normal. Skull and face: Calvarium and visualized facial bones are intact, without suspicious lesions. Sinuses: Visualized sinuses and mastoids are clear. IMPRESSION: No acute intracranial pathology. Reviewed by: Santiago Urrutia MD on 06/13/2025 1:51 PM PDT duplex bilat legs: Relevant Findings:: Final report received and Other (US Tech says distal left DVT, consider chronic as same location at prior. ) Interpretation: EXAM: [id number] US/VENB ([id number]) PROCEDURE: US Venous Duplex BL INDICATIONS: Art Belcher MD TECHNIQUE: Real-time imaging, as well as color and pulse Doppler interrogation, were performed of the deep veins of both legs from the inguinal ligament to the popliteal fossa. Attempted visualization of the calf veins was performed. COMPARISON: September 21, 2023 FINDINGS: Right: The deep veins are normally compressible, and free of intraluminal thrombus. Color and pulse Doppler demonstrate normal phasic intravascular flow. There is normal augmentation response to distal compression maneuver. Left: Partially compressible distal femoral and popliteal veins. Extensive subcutaneous edema. Distal peroneal and posterior tibial veins are not well demonstrated. IMPRESSION: 1. Probable DVT involving the left popliteal and distal femoral veins. This area was affected on prior examination and could be chronic. 2. No evidence of DVT on the right. Reviewed by: Perry Mcclelland MD on 06/13/2025 2:[address]-A: Relevant Findings:: Final report received Interpretation: EXAM: [id number] CT/TANG ([id number]) PROCEDURE: CT Angio Chest INDICATIONS: edema left leg, acute vs chronic DVT; dyspnea CONTRAST: omni 300, 80ml TECHNIQUE: After the administration of intravenous contrast images of the chest were acquired. 3-dimensional coronal oblique maximum intensity projection (MIP) reformats, axial MIP, and coronal and sagittal MPR reformats were then performed through the chest. For radiation dose reduction, the following was used: automated exposure control, adjustment of mA and/or kV according to patient size. COMPARISON: FINDINGS: Image quality: Excellent. Large vessels: No filling defects within the opacified pulmonary arteries, accounting for motion and contrast timing. No evidence of acute aortic syndrome or aortic aneurysm. Lungs and pleura: Subsegmental compressive atelectasis bilaterally. No pleural effusions. No pneumothorax. No suspicious pulmonary nodules which require f ollow up. Mediastinum: Cardiomegaly. No pericardial effusion.. No pericardial effusion. No large vessel abnormality. No mediastinal adenopathy by size criteria. Chest wall and lower neck: Thyroid is unremarkable. No axillary or supraclavicular adenopathy by size. Bones: No aggressive osseous abnormality. Upper Abdomen: Unremarkable. IMPRESSION: 1. No pulmonary embolus. 2. Cardiomegaly 3. Shallow inspiration. Reviewed by: Perry Mcclelland MD on 06/13/2025 3:53 PM PDT PD Medical Decision Making ED course Complexity details: reviewed results, re-evaluated patient (Breathing easier and more comfortable with IV Lasix and has had diuresis. However, has frailty due to dystrophy, poor lung reserve (prior oxygen Rx, but not currently consistent in use), poor mobility. ), considered differential (weakness, dyspnea with bilat leg edema, left more than right. Pt breathing easier sitting up. Presume CHF, but not apparent cause. Prior DVT and PE about 1 1/2 years ago. On DOAC. No URI. Can assess for new DVT/PE. ECHO from prior episode showed EF 55-60%, so good. ), d/w patient and d/w family (d/w her sister, who says she beleives the pt does not use oxygen consistently. Does not have assistance other than her elderly mother to provide care at home. Pt still with oxygen demand for adequate sats, and not clear how this differs from baseline, but sounds worse than baseline.) ED course: Patient is brought by EMS with complaint of lower extremity edema, particularly the left, associated with dyspnea and orthopnea. She does have muscular dystrophy and is mostly sedentary and does use a wheelchair. She lives with her mother who is her primary caregiver. Medics were called as the patient had been having increasing edema in the legs, particular the left, over the last several days. The patient denies recent cough or cold symptoms per se. The report from the medics is of the mother had noted the patient being moderately confused over the past day or 2 as well. Here the patient does present with the edema without any notable tenderness which is more noticeable on the left. It is pitting edema. She does have coarse sounds in bilateral lungs consistent with some pulmonary edema. She denies chest pain. She was maintaining oxygenation above 90% with nasal cannula at 5 or 6 L. She states she does have home oxygen but initially did not know the rate that she typically is on. She also states she is not on it consistently and is often able to be without it. She denies any fever chills throwing up or diarrhea, blood in her stool, sputum production, particular cough. Chest x-ray showed fluid congestion consistent with CHF. I was able to find in her old record here at our hospital, a echocardiogram from I believe year and a half ago that showed ejection fraction of 55 to 60% and no cardiomegaly. She does have a history of chronic atrial fibrillation and seems to rate controlled here. She was given IV Lasix here and a PureWick was applied. She has produced some moderate amount of urine output. There was concern on my part for recurrent DVT or PE so we did ultrasound the legs which showed a small clot in the distal left which is in the same position as her prior 1 so likely chronic. No apparent new or progressive DVTs. CT angio of the chest did not show any PEs or other infiltrates. The patient is having more coherent in conversation after diuresing approximately 7 or 800 mL. However she is still having some orthopnea. I feel it prudent to have her in the hospital for continued diuresing and improvement, especially given the situation of her muscular dystrophy and therefore less her chest muscle tone etc. I did talk with the hospitalist who was in concurrence and will come see the patient. Discharge Plan Discharge Patient Disposition: ED Place in Observation Condition: Stable Clinical Impression: CHF (congestive heart failure), Myotonic dystrophy, Bilateral edema of lower extremity, Hypoxia, Acute dyspnea, Confusion Interventions: ED Admission Assessment Last Done: 06/13/25 18:50 Vitals documented within 30 minutes of discharge?: Yes
[2025-06-13 13:14] LABS: HCT - HEMATOCRIT 55.5 % (37.0-47.0); HGB - HEMOGLOBIN 15.8 g/dL (12.0-16.0); MEAN PLATELET VOLUME 10.7 fL (7.9-10.8); NRBC ABSOLUTE COUNT (AUTO) 0.02 x10^3/uL; NUCLEATED RED BLOOD CELLS AUTO 0.4 /100WBC; PLT - PLATELET COUNT 147 10^3/uL (130-450); RED CELL DISTRIBUTION WIDTH 13.9 % (12.0-15.0)
[2025-06-13 13:34] LABS: ALT ALANINE AMINOTRANSFERASE 9 IU/L (10-60); AST ASPARTATE AMINOTRANSFERASE 14 IU/L (10-42); BUN - BLOOD UREA NITROGEN 10 mg/dL (6-20); CARBON DIOXIDE - CO2 42 mmol/L (21-32); CREATININE 0.5 mg/dL (0.6-1.3); GFR - MDRD 128 (>89)
--- NOTE | 2025-06-13 13:43 | XRAY Report ---
PROCEDURE: XR Chest 1V INDICATIONS: cough and dyspnea TECHNIQUE: One view of the chest was acquired. COMPARISON: 08/22/2023 FINDINGS: Surgical changes and devices: None. Lungs and pleura: Diffuse increased interstitial markings. Low lung volumes. No effusions or pneumothorax. Mediastinum: Cardiomegaly. Normal contour otherwise. Bones and chest wall: No suspicious bony lesions. Overlying soft tissues appear unremarkable. IMPRESSION: Cardiomegaly with increased interstitial markings concerning for CHF. Reviewed by: Ulisses Rivera MD on 06/13/2025 1:40 PM PDT Approved by: Ulisses Rivera MD on 06/13/2025 1:40 PM PDT Station ID: [id number]
[2025-06-13] MEDS: FUROSEMIDE 40 MG/4 ML VIAL IVP STA (13:50)
--- NOTE | 2025-06-13 13:55 | CT Report ---
PROCEDURE: CT Head WO INDICATIONS: fall, confused, on DOAC TECHNIQUE: CT of the head was performed, without intravenous contrast. Reformats: Coronal and sagittal. For radiation dose reduction, the following was used: automated exposure control, adjustment of mA and/or kV according to patient size. COMPARISON: None. FINDINGS: Image quality: Diagnostic. CSF spaces: Basal cisterns are patent. No extra-axial fluid collections. Ventricles are normal in size and shape. Brain: No midline shift. No intracranial mass effect or hemorrhage. Montero- white matter interface is normal. Skull and face: Calvarium and visualized facial bones are intact, without suspicious lesions. Sinuses: Visualized sinuses and mastoids are clear. IMPRESSION: No acute intracranial pathology. Reviewed by: Santiago Urrutia MD on 06/13/2025 1:51 PM PDT Approved by: Santiago Urrutia MD on 06/13/2025 1:51 PM PDT Station ID: [id number]
--- OUTSIDE RECORDS SUMMARY | 2025-06-13 14:09 | EXTERNAL MEDICAL SUMMARY RPT | Continuity of Care Document ---
Author Organization [facility] Address [address] [place] [id number] Phone Results/Labs test date facility value unit notes Result panel 1 BASOPHILS # (AUTO) 2025-06-13 12:58 [facility] 0.0 10 3/ul (missing) NRBC ABSOLUTE COUNT (AUTO) 2025-06-13 12:58 [facility] 0.02 x10 3/ul (missing) EOSINOPHILS # (AUTO) 2025-06-13 12:58 [facility] 0.1 10 3/ul (missing) NUCLEATED RED BLOOD CELLS AUTO 2025-06-13 12:58 [facility] 0.4 /100wbc (missing) MONOCYTES # (AUTO) 2025-06-13 12:58 [facility] 0.5 10 3/ul (missing) CREATININE 2025-06-13 12:58 [facility] 0.5 mg/dl As of February 2023 testing method has changed, this may include reference ranges. BILIRUBIN,TOTAL 2025-06-13 12:58 [facility] 0.7 mg/dl As of February 2023 testing method has changed, this may include reference ranges. ANION GAP 2025-06-13 12:58 [facility] 1.0 (missing) (missing) ALBUMIN/GLOBULIN RATIO 2025-06-13 12:58 [facility] 1.3 (missing) (missing) LYMPHOCYTES # (AUTO) 2025-06-13 12:58 [facility] 1.6 10 3/ul (missing) BUN - BLOOD UREA NITROGEN 2025-06-13 12:58 [facility] 10 mg/dl As of February 2023 testing method has changed, this may include reference ranges. MEAN PLATELET VOLUME 2025-06-13 12:58 [facility] 10.7 fl (missing) MEAN CORPUSCULAR VOLUME 2025-06-13 12:58 [facility] 101.1 fl (missing) GFR - MDRD 2025-06-13 12:58 [facility] 128 (missing) The IDMS-traceable MDRD Study Equation has been validated extensively in and populations between the ages of 18 and 70 with impaired kidney function (eGFR < 60 mL/min/1.73m2) and has shown good performance for patients with all common causes of kidney disease. Although this equation has not been validated for patients older than 70, an MDRD-derived eGFR may still be a useful tool for providers caring for patients older than 70. References: http://www.nkdep. nih.gov/lab-evalu ation/gfr/creatin ine-stand ardization, last updated October 2011. RED CELL DISTRIBUTION WIDTH 2025-06-13 12:58 [facility] 13.9 % (missing) AST ASPARTATE AMINOTRANSFERASE 2025-06-13 12:58 [facility] 14 iu/l As of February 2023 testing method has changed, this may include reference ranges. SODIUM 2025-06-13 12:58 [facility] 141 mmol/l (missing) PLT - PLATELET COUNT 2025-06-13 12:58 [facility] 147 10 3/ul (missing) HGB - HEMOGLOBIN 2025-06-13 12:58 [facility] 15.8 g/dl (missing) LIPASE 2025-06-13 12:58 [facility] 17 u/l As of February 2023 testing method has changed, this may include reference ranges. GLUCOSE 2025-06-13 12:58 [facility] 173 mg/dl As of February 2023 testing method has changed, this may include reference ranges. MAGNESIUM 2025-06-13 12:58 [facility] 2.1 mg/dl As of February 2023 testing method has changed, this may include reference ranges. GLOBULIN 2025-06-13 12:58 [facility] 2.9 g/dl (missing) MEAN CORPUSCULAR HGB CONC 2025-06-13 12:58 [facility] 28.5 g/dl (missing) MEAN CORPUSCULAR HEMOGLOBIN 2025-06-13 12:58 [facility] 28.8 pg (missing) NEUTROPHILS # (AUTO) 2025-06-13 12:58 [facility] 3.4 10 3/ul (missing) ALBUMIN 2025-06-13 12:58 [facility] 3.7 g/dl As of February 2023 testing method has changed, this may include reference ranges. POTASSIUM 2025-06-13 12:58 [facility] 4.1 mmol/l As of February 2023 testing method has changed, this may include reference ranges. CARBON DIOXIDE - CO2 2025-06-13 12[facility]/l Critical result CO2 42 mmol/L called to and read back by JOHANNY Goldstein/RN/ED at 13-Jun-2025 13:32 by jeanna. As of February 2023 testing method has changed, this may include reference ranges. RED BLOOD COUNT 2025-06-13 12:58 [facility] 5.49 10 6/ul (missing) WHITE BLOOD COUNT 2025-06-13 12:58 [facility] 5.7 x10 3/ul (missing) HCT - HEMATOCRIT 2025-06-13 12:58 [facility] 55.5 % (missing) TOTAL PROTEIN 2025-06-13 12:58 [facility] 6.6 g/dl As of February 2023 testing method has changed, this may include reference ranges. ALT ALANINE AMINOTRANSFERASE 2025-06-13 12:58 [facility] 9 iu/l As of February 2023 testing method has changed, this may include reference ranges. CALCIUM 2025-06-13 12:58 [facility] 9.7 mg/dl As of February 2023 testing method has changed, this may include reference ranges. ALKALINE PHOSPHATASE 2025-06-13 12:58 [facility] 92 iu/l As of February 2023 testing method has changed, this may include reference ranges. CHLORIDE 2025-06-13 12:58 [facility] 98 mmol/l As of February 2023 testing method has changed, this may include reference ranges. Social History date description facility
[2025-06-13 14:20] LABS: VBG BASE EXCESS 15.6 mmol/L (-2 - +2); VBG PCO2 84.5 mmHg (41-51); VBG PH 7.302 (7.31-7.41); VBG PO2 32.8 mmHg (25-47); VBG TOTAL CO2 44.8 mmol/L (24-29)
--- NOTE | 2025-06-13 14:25 | Ultrasound Report ---
PROCEDURE: US Venous Duplex BL INDICATIONS: Art Belcher MD TECHNIQUE: Real-time imaging, as well as color and pulse Doppler interrogation, were performed of the deep veins of both legs from the inguinal ligament to the popliteal fossa. Attempted visualization of the calf veins was performed. COMPARISON: September 21, 2023 FINDINGS: Right: The deep veins are normally compressible, and free of intraluminal thrombus. Color and pulse Doppler demonstrate normal phasic intravascular flow. There is normal augmentation response to distal compression maneuver. Left: Partially compressible distal femoral and popliteal veins. Extensive subcutaneous edema. Distal peroneal and posterior tibial veins are not well demonstrated. IMPRESSION: 1. Probable DVT involving the left popliteal and distal femoral veins. This area was affected on prior examination and could be chronic. 2. No evidence of DVT on the right. Reviewed by: Perry Mcclelland MD on 06/13/2025 2:22 PM PDT Approved by: Perry Mcclelland MD on 06/13/2025 2:22 PM PDT Station ID: [id number]
[2025-06-13 14:26] LABS: B. PARAPERTUSSIS- RESP PCR PAN NOT DETECTED; B. PERTUSSIS- RESP PCR PANEL NOT DETECTED; C. PNEUMONIAE- RESP PCR PANEL NOT DETECTED; CORONAVIRUS 229E-RESP PCR NOT DETECTED; CORONAVIRUS HKU1-RESP PCR NOT DETECTED; CORONAVIRUS NL63-RESP PCR NOT DETECTED; CORONAVIRUS OC43-RESP PCR NOT DETECTED; HUMAN METAPNEUMOVIRUS NOT DETECTED; INFLUENZA A- RESP PCR PANEL NOT DETECTED; INFLUENZA B - RESP PCR PANEL NOT DETECTED; M. PNEUMONIAE- RESP PCR PANEL NOT DETECTED; PARAINFLUENZA VIRUS 1 NOT DETECTED; PARAINFLUENZA VIRUS 2 NOT DETECTED; PARAINFLUENZA VIRUS 4 NOT DETECTED; RHINOVIRUS/ENTEROVIRUS NOT DETECTED; RSV- RESP PCR PANEL NOT DETECTED; SARS-CoV-2 -RESP PCR PANEL NOT DETECTED
--- NOTE | 2025-06-13 15:56 | CT Report ---
PROCEDURE: CT Angio Chest INDICATIONS: edema left leg, acute vs chronic DVT; dyspnea CONTRAST: omni 300, 80ml TECHNIQUE: After the administration of intravenous contrast images of the chest were acquired. 3-dimensional coronal oblique maximum intensity projection (MIP) reformats, axial MIP, and coronal and sagittal MPR reformats were then performed through the chest. For radiation dose reduction, the following was used: automated exposure control, adjustment of mA and/or kV according to patient size. COMPARISON: FINDINGS: Image quality: Excellent. Large vessels: No filling defects within the opacified pulmonary arteries, accounting for motion and contrast timing. No evidence of acute aortic syndrome or aortic aneurysm. Lungs and pleura: Subsegmental compressive atelectasis bilaterally. No pleural effusions. No pneumothorax. No suspicious pulmonary nodules which require follow up. Mediastinum: Cardiomegaly. No pericardial effusion.. No pericardial effusion. No large vessel abnormality. No mediastinal adenopathy by size criteria. Chest wall and lower neck: Thyroid is unremarkable. No axillary or supraclavicular adenopathy by size. Bones: No aggressive osseous abnormality. Upper Abdomen: Unremarkable. IMPRESSION: 1. No pulmonary embolus. 2. Cardiomegaly 3. Shallow inspiration. Reviewed by: Perry Mcclelland MD on 06/13/2025 3:53 PM PDT Approved by: Perry Mcclelland MD on 06/13/2025 3:53 PM PDT Station ID: [id number]
--- NOTE | 2025-06-13 17:51 | HISTORY & PHYSICAL EXAMINATION ---
Chief Complaint Chief Complaint Chief Complaint: shortness of air. History of Present Illness Admitted From Admitted From:: home History Obtained From Records Reviewed: last admit History obtained from: Patient, also telephone call to mother. 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 She has been feeling overall well but several days ago started to have some lower extremity edema. She has also developed some urinary incontinence over the last 3 to 4 weeks and been more tremulous. This morning her mother noted that she was very confused and that the swelling in her legs had not gone down and therefore called the ambulance. This patient is on oxygen as needed at home. But normally does not use oxygen she does not have a CPAP, she tried that and failed it in the past. At baseline she is ambulatory with a walker and manages all of her own medications. Today she is not able to give me the full history of her present illness. I had to call her mother to get the story on what is been going on with her. ANNST on the chart. Her mother is her surrogate's medical decision maker. She endorses this to me. She states that she wants to be DNR DNI. Her mother tells me that short course of intubation would be okay. Meds/Allgy Home Medications Ambulatory Orders Medication Instructions Recorded Confirmed simvastatin 10 mg tablet (Zocor) 10 mg PO DAILY 09/21/23 vitamin B complex (B 1 ea PO DAILY 06/10/2309/21 Complex-Vitamin B12 tablet) vitamin E (dl, acetate) 180 mg 400 unit PO DAILY 06/1009/21/23 (400 unit) capsule liraglutide 0.6 mg/0.1 mL (18 mg/3 1.2 mg subcut DAILY PM 08/23/23 09/21/23 mL) subcutaneous pen injector (Victoza 2-Pal) insulin glargine-yfgn 100 unit/mL 20 unit subcut BID 0 08/25/23 09/21/23 (3 mL) subcutaneous pen insulin lispro 100 unit/mL 6 unit subcut TIDWM 4 09/21/23 subcutaneous pen (Humalog KwikPen (U-100) Insulin) gabapentin 300 mg capsule 300 mg PO HS #30 caps 09/21/23 metoprolol succinate 25 mg 25 mg PO BID Hypertension # 60 tabs 09/01/23 09/21/23 tablet,extended release 24 hr trazodone 50 mg tablet 50 mg PO HS #30 tabs 4 09/21/23 apixaban 5 mg tablet (Eliquis) 10 mg (2 x 5 mg) ORAL B ID 30 days 09/21/23 #74 tabs Allergies Allergies Allergy/AdvReac Type Severity Reaction Status Date / Time amoxicillin AdvReac Rash Verified 06/13/25 12:12 Sulfa (Sulfonamide AdvReac Hives Verified 06/13/25 12:12 Antibiotics) PFSH Active Problems All Active Problems (Updated 06/13/25 @ 18:20 by TRISH Del Real) Diabetes mellitus (Chronic) Atrial fibrillation (Chronic) Acute hypoxic respiratory failure (Acute) Confusion (Acute) Acute dyspnea (Acute) Hypoxia (Acute) Bilateral edema of lower extremity (Acute) CHF (congestive heart failure) (Acute) Myotonic dystrophy (Chronic) Social History Social History (Updated 06/13/25 @ 21:49 by Art Belcher MD) Smoking Status: Unknown if ever smoked If you are a former smoker, when did you quit? (Date/Year): 2002 Number of Years Smoked: 9 How many cigarettes a day do you smoke? (20 cigarettes=1 Pk): 30 Second hand tobacco smoke exposure: No Do you dip or chew tobacco?: No Do you vape?: No Patient requests smoking cessation consult: No Initiate information on smoking cessation: No Living arrangement: At home Living Condition: With family Level: Independent Home Mobility Equipment: Walker Do you feel safe in your home environment?: Yes History of physical, verbal, emotional, or financial abuse?: No Substance Use: denies use POLST Patient has POLST: Yes POLST CPR Status: Do Not Attempt Resuscitation (DNAR) / Allow Natural Review of Systems Status of ROS: 10 or more systems reviewed and unremarkable except as noted in history and below Prior Level of Functionality: Ambulatory with a walker. Manages her own medications. Exam Exam Vital Signs: Vital Signs x48h Temp Pulse Pulse Resp BP BP Pulse Ox 06/13/25 21:00 67 17 93 06/13/25 20:00 84 23 106/57 L 94 06/13/25 19:20 83 06/13/25 19:00 36.5 C 95 19 101/58 L 91 L 06/13/25 18:24 37.8 C 70 16 109/50 L 96 06/13/25 17:00 89 18 94/68 94 06/13/25 16:00 81 16 99/43 L 92 06/13/25 14:55 96 18 122/69 94 O2 Flow Rate 06/13/25 21:00 06/13/25 20:00 06/13/25 19:20 06/13/25 19:00 4 06/13/25 18:24 4 06/13/25 17:00 4 06/13/25 16:00 4 06/13/25 14:55 5 Constitutional Chronically ill appearing female HENMT normocephalic, hearing grossly normal bilaterally and external ears normal Very poor dentition with evidence of poor oral hygiene and gingivitis Eyes Mildly injected conjunctiva Neck/C-Spine visual inspection normal Lymph no lymphadenopathy noted Chest inspection of chest normal Respiratory normal respiratory effort and no use of accessory muscles Diminished breath sounds bilaterally Cardiovascular normal heart rate noted Gastrointestinal abdomen normal to inspection and abdomen soft to palpation Back/Pelvis spine normal to inspection Extremities !+ pitting edema Neurology mild confusion. Takes her some time to determine the month and year, thinks that we are at "[facility]". Psychiatry cooperative confused but pleasant Skin skin color normal and no rash Conclusion/Plan Problem List (1) Acute hypoxic respiratory failure: Plan: This patient is on room air at home. She does have oxygen as needed and will use 2 L she has not been doing this recently at home. she woke up confused this morning and has had lower extremity edema increasing over the last 2 days according to her mother who is an independent historian in this case. She is not on any diuretic medication at home, however she is on medications for heart failure. I was able to gain somewhat of a medication history from her mother over the telephone this evening. Her CODE STATUS is DNR/DNI, however her mother states that she would accept a short course of ventilation. I do not believe this patient will need to be intubated however, I am transferring her to the intensive care unit as I do believe she will need a short course of BiPAP therapy. I believe that her acute hypoxic respiratory failure is secondary to a CHF exacerbation. I do not have any reason to think that she has a community- acquired pneumonia .She does not have an elevated white blood cell count. Her procalcitonin is less than 0.5 today. Her viral respiratory panel is negative. CTA of the chest done in the emergency department does not show any PE. There is a chronic left lower extremity DVT. In the differential for this patient certainly should Discussed this patient with Dr. Art Belcher in the emergency department decision was made to admit her to inpatient status for treatment of her acute hypoxic respiratory failure likely secondary to CHF exacerbation. (2) CHF (congestive heart failure): Plan: This patient has a history of atrial fibrillation. We have an echocardiogram in the chart from 2 years ago which shows an ejection fraction of 55 to 60%. Patient does not give me a history of seeing cardiology. I believe she has heart failure with preserved ejection fraction. Her chest x-ray looks extremely fluid overloaded. Her BNP is not that impressive at 135. Last value 2 years ago was 62. My plan is to diurese her aggressively. She got 40 mg of Lasix in the emergency department. I will repeat this dose 6 hours later and then again in the morning. I have asked for daily weights. I will restrict fluids to 1500 cc a day. I cannot elicit a history of paroxysmal nocturnal dyspnea from the patient. She does have this new onset pedal edema. Her mother states that she has been sleeping okay at night. I need accurate med rec, as I do not see any diuretics in her current meds or historically. It could certainly be that her heart failure has been worsening, As I am at the bedside in the emergency department I see that the patient is on 5 L via nasal cannula and her oxygen saturations are in the mid 80s. I think that is quite possible she may require short course of BiPAP. I spoke with the patient about this and she agrees to BiPAP therapy if indicated. (3) Atrial fibrillation: Plan: Past history of atrial fibrillation she is anticoagulated on Eliquis both for this and the history of DVT with PE. (4) Diabetes mellitus: Plan: This patient has a longstanding history of insulin-dependent diabetes. She is also on Jardiance at home, 10 mg a day. I will start her on glargine 10 units at at bedtime with sliding scale coverage of her blood sugar. I have ordered a hemoglobin A1c for the a.m. (5) Myotonic dystrophy: Plan: Longstanding history of myotonic dystrophy. This patient has myotonic dystrophy chronic progressive illness. She is walker dependent at baseline. She can swallow thin liquids. She does need to take her medications with either applesauce or yogurt. I do not believe this is contributory to her current illness. She is not on any chronic medications for this. Plan I have spent 90 minutes in the care of this patient today. This includes time [id number], review and ordering of diagnostic imaging and laboratory studies and consultation with other providers. Monitoring the patient's signs symptoms, evaluation of medication effectiveness and patient's response to treatment. Lab Results Lab results reviewed: Yes 06/13/25 12:58 06/13/25 12:58
[2025-06-13] MEDS ORDERED: oxyCODONE 5 MG TABLET PO PRN (18:52)
[2025-06-13] MEDS: METOPROLOL SUCCINATE 25 MG TABLET PO SCH (21:31)
[2025-06-13] MEDS: APIXABAN 5 MG TABLET PEG SCH (21:31)
[2025-06-13] MEDS: INSULIN LISPRO 300 UNIT/3 ML PEN SUBQ SCH (21:33)
[2025-06-13] MEDS: INSULIN GLARGINE-YFGN 300 UNIT/3 ML PEN SUBQ SCH (21:33)
[2025-06-13] MEDS: SODIUM CHLORIDE FLUSH 0.9% 10 ML SYRINGE IVP PRN (21:36)
[2025-06-14] MEDS: SODIUM CHLORIDE FLUSH 0.9% 10 ML SYRINGE IVP SCH (00:35)
--- NOTE | 2025-06-14 03:38 | PROVIDER PROGRESS NOTE ---
Riverboat Master Note Riverboat Master Note Riverboat Master Note: per rn "Pt. admitted yesterday for acute hypoxic resp failure with possible CHF exacerbation with a BNP-155. Pt. received Lasix 40 mg iv in ER with UO esthela. 1000 ml plus 700 here in ICU. Pt. is also on fluid restriction of 1500 ml/daily. Anyhow, pts. B/P is consistently low; cycled multiple times with same result. Current B/P-90/56, MAP-59, prior to that 94/54, MAP-61, 86/47, MAP-63. Pt's HR is afib with rate in the 60-70. Metoprolol 25 mg XL was held at 2100 due to low B/P. Pt. in bed without any complaints. Do we need to do something for pt's low B/P?" albumin x 1 dose
[2025-06-14] MEDS: ALBUMIN 25% 12.5 GM/50 ML VIAL IV STA ×2 (04:28→11:43)
[2025-06-14 04:36] LABS: HCT - HEMATOCRIT 52.7 % (37.0-47.0); HGB - HEMOGLOBIN 15.3 g/dL (12.0-16.0); MEAN PLATELET VOLUME 10.9 fL (7.9-10.8); NRBC ABSOLUTE COUNT (AUTO) 0.00 x10^3/uL; NUCLEATED RED BLOOD CELLS AUTO 0.0 /100WBC; PLT - PLATELET COUNT 134 10^3/uL (130-450); RED CELL DISTRIBUTION WIDTH 13.9 % (12.0-15.0)
[2025-06-14 04:45] LABS: VBG BASE EXCESS 24.1 mmol/L (-2 - +2); VBG PH 7.499 (7.31-7.41); VBG PO2 66.6 mmHg (25-47); VBG TOTAL CO2 49.4 mmol/L (24-29)
[2025-06-14 04:46] LABS: VBG PCO2 60.5 mmHg (41-51)
[2025-06-14 04:58] LABS: BUN - BLOOD UREA NITROGEN 12.0 mg/dL (6-20); CARBON DIOXIDE - CO2 41.0 mmol/L (21-32); CREATININE 0.5 mg/dL (0.6-1.3); GFR - MDRD 128.0 (>89)
[2025-06-14] MEDS: FUROSEMIDE 40 MG/4 ML VIAL IVP SCH ×2 (06:31→08:37)
[2025-06-14] MEDS: APIXABAN 5 MG TABLET PO SCH (08:36)
--- NOTE | 2025-06-14 08:43 | PROVIDER PROGRESS NOTE ---
Subjective Prog Note Date Prog Note Date: 06/14/25 Prog Note Time: 08:43 Subjective Pt reports feeling: No change Subjective: Katherin Foss is a 54-year-old female with a past medical history of myotonic dystrophy, DVT with PE, HFpEF (EF 60-65% in '23), atrial-fibrillation, and type 1 DM who presented with increasing BLE edema, confusion, and hypoxia concerning for acute heart failure. Today, Katherin is able to answer questions and participate in history, although there appear to be some gaps in her recall. She states she feels everything started when her mother was sick with a cold within the past week. She caught the cold as well, experiencing progressive dyspnea and increased BLE swelling over the past two days. Currently, her chief complaint continues to be orthopnea and dyspnea at rest. She denies chest pain, palpitations. She denies pain or discomfort elsewhere. Incidentally she states she has had increased urinary frequency the past week, has baseline incontinence intermittently. No nausea, fevers, chills, abnormalities to urine character. Denies changes to bowel habits. Current Medications Current Medications Current Medications: Current Medications Generic Name Dose Route Start Last Admin Trade Name Freq PRN Reason Stop Dose Admin Acetaminophen 650 mg 06/13/25 18:52 Acetaminophen 325 Mg Tablet PO Q4HR PRN Pain 1 to 4, or Fever Apixaban 5 mg 06/14/25 09:00 06/14/25 08:36 Apixaban 5 Mg Tablet PO 5 mg BID PEREZ Administration Furosemide 40 mg 06/14/25 09:00 06/14/25 08:37 Furosemide 40 Mg/4 Ml Vial IVP Not Given DAILY [facility] Insulin Glargine-yfgn 10 unit 06/13/25 21:00 06/13/25 21:33 Insulin Glargine-Yfgn 300 Unit/3 Ml Pen SUBQ 10 unit QPM PEREZ Administration Insulin Human Lispro 1 - 5 unit 06/13/25 21:00 06/14/25 08:36 Insulin Lispro 300 Unit/3 Ml Pen SUBQ Not Given 0800,1200,1700,2100 [facility] Protocol Metoprolol Succinate 25 mg 06/13/25 21:00 06/14/25 08:36 Metoprolol Succinate 25 Mg Tablet PO 25 mg BID PEREZ Administration Ondansetron HCl 4 mg 06/13/25 18:52 Ondansetron Odt 4 Mg Tablet TL Q6HR PRN Nausea / Vomiting Oxycodone HCl 5 mg 06/13/25 18:52 Oxycodone 5 Mg Tablet PO Q4HR PRN Pain 5 to 7 Sodium Chloride 10 ml 06/13/25 18:52 06/14/25 06:31 Sodium Chloride Flush 0.9% 10 Ml Syringe IVP 10 ml PRN PRN Administration NEEDED PER PROVIDER ORDERS Sodium Chloride 10 ml 06/14/25 01:00 06/14/25 08:36 Sodium Chloride Flush 0.9% 10 Ml Syringe IVP 10 ml 0100,0900,1700 PEREZ Administration Trazodone HCl 50 mg 06/13/25 21:00 06/13/25 21:31 Trazodone 50 Mg Tablet PO 50 mg HS PEREZ Administration Objective Vital Signs/Intake & Output Reviewed Vital Signs: Yes Vital Signs: Vital Signs x48h Temp Pulse Pulse Resp BP Pulse Ox O2 Flow Rate 06/14/25 08:00 37.4 C 71 29 H 122/63 94 5 06/14/25 07:00 72 18 101/59 L 95 5 06/14/25 06:58 5 06/14/25 06:00 72 18 104/60 92 5 06/14/25 05:00 4 06/14/25 05:00 78 25 H 107/72 92 4 06/14/25 04:44 4 06/14/25 04:43 4 06/14/25 04:00 36.8 C 85 28 H 112/70 92 06/14/25 03:20 81 06/14/25 03:00 77 20 88/54 L 90 L 06/14/25 02:00 70 20 87/57 L 92 06/14/25 01:01 64 06/14/25 01:00 72 20 82/55 L 93 Intake & Output: Intake & Output 06/11/25 06/12/25 06/13/25 06/14/25 23:59 23:59 23:59 23:59 Intake Total 70 / 70 Output Total 925 / 925 Balance -855 / -855 Weight (kg) 95 kg 87 kg Objective Comments/Other: Constitutional: Adult female who lies semi-Boles's in hospital bed in [facility]. Integument: Skin smooth, warm, dry and intact. HEENT: Dry lips, moist small, lesion to inner upper lip. Normocephalic, atraumatic. Facial features symmetrical at rest and with movement. Respiratory: Lungs diminished in the bases bilaterally. No crackles, rales. Shallow respirations. Chest expansion symmetric. Cardiac: Regular S1, S2 heart sounds. No murmur detected. Peripheral Vascular: BLE edema 2+. Pedal pulses 1+. Warm and non-cyanotic. Gastrointestinal: Abdomen is warm, soft, and nontender. Symmetrical, round contour. Bowel tones audible and normoactive. Musculoskeletal: BUE/BLE motor strength 4/5. Full ROM in upper and lower extremities. Neurological: Alert, oriented x 4 to self, place, time, situation. Recent and remote memory intact. Calm, cooperative, follows commands. Mood appropriate to situation. Thought process coherent with appropriate judgment. Speech fluent. PERRLA. Sensation grossly intact. Lab Results 06/14/25 04:23 06/14/25 04:23 Other Labs: Lab Results x24hrs 06/14/25 06/14/25 06/13/25 Range/Units 07:45 04:23 Unknown WBC 6.9 (4.8-10.8) x10^3/uL RBC 5.30 (4.20-5.40) 10^6/uL Hgb 15.3 (12.0-16.0) g/dL Hct 52.7 H (37.0-47.0) % MCV 99.4 H (81.0-99.0) fL MCH 28.9 (27.0-31.0) pg MCHC 29.0 L (32.0-36.0) g/dL RDW 13.9 (12.0-15.0) % Plt Count 134 (130-450) 10^3/uL MPV 10.9 H (7.9-10.8) fL Neut # (Auto) 4.2 (1.5-6.6) 10^3/uL Lymph # (Auto) 1.8 (1.5-3.5) 10^3/uL [place] # (Auto) 0.7 (0.0-1.0) 10^3/uL Eos # (Auto) 0.1 (0.0-0.7) 10^3/uL Baso # (Auto) 0.0 (0.0-0.1) 10^3/uL Absolute Nucleated RBC 0.00 x10^3/uL Nucleated RBC % 0.0 /100WBC VBG pH 7.499 H (7.31-7.41) VBG pCO2 60.5 H (41-51) mmHg VBG pO2 66.6 H (25-47) mmHg VBG HCO3 47.5 H (23-28) mmol/L VBG Total CO2 49.4 H (24-29) mmol/L VBG O2 Saturation 95.0 H (60-80) % VBG Base Excess 24.1 H (-2 - +2) mmol/L Sodium 144 (135-145) mmol/L Potassium 3.7 (3.5-4.5) mmol/L Chloride 98 L (101-111) mmol/L Carbon Dioxide 41 H* (21-32) mmol/L Anion Gap 5.0 L (6-13) BUN 12 (6-20) mg/dL Creatinine 0.5 L (0.6-1.3) mg/dL Estimated GFR (MDRD) 128 (>89) Glucose 102 (74-104) mg/dL POC Whole Bld Glucose 127 (70-100) mg/dL Calcium 9.1 (8.5-10.3) mg/dL Magnesium (1.7-2.3) mg/dL Total Bilirubin (0.2-1.0) mg/dL AST (10-42) IU/L ALT (10-60) IU/L Alkaline Phosphatase (42-121) IU/L B-Natriuretic Peptide (5-100) pg/mL Total Protein (6.4-8.9) g/dL Albumin (3.2-5.5) g/dL Globulin (2.1-4.2) g/dL Albumin/Globulin Ratio (1.0-2.2) Lipase (11-82) U/L Procalcitonin Immunoas (<0.5) ng/mL Nasal Adenovirus (PCR) NOT DETECTED Nasal B. parapertussis DNA (PCR) NOT DETECTED Nasal Coronavir 229E PCR NOT DETECTED Nasal Coronavir HKU1 PCR NOT DETECTED Nasal Coronavir NL63 PCR NOT DETECTED Nasal Coronavir OC43 PCR NOT DETECTED Nasal Enterovir/Rhinovir PCR NOT DETECTED Nasal Influenza B PCR NOT DETECTED Nasal Influenza A PCR NOT DETECTED Nasal Parainfluen 1 PCR NOT DETECTED Nasal Parainfluen 2 PCR NOT DETECTED Nasal Parainfluen 3 PCR NOT DETECTED Nasal Parainfluen 4 PCR NOT DETECTED Nasal RSV (PCR) NOT DETECTED Nasal Screen MRSA (PCR) (NEGATIVE) Nasal B.pertussis DNA PCR NOT DETECTED Nasal C.pneumoniae (PCR) NOT DETECTED Amish Human Metapneumo PCR NOT DETECTED Nasal M.pneumoniae (PCR) NOT DETECTED Nasal SARS-CoV-2 (PCR) NOT DETECTED 06/13/25 06/13/25 06/13/25 Range/Units 21:03 19:14 14:10 WBC (4.8-10.8) x10^3/uL RBC (4.20-5.40) 10^6/uL Hgb (12.0-16.0) g/dL Hct (37.0-47.0) % MCV (81.0-99.0) fL MCH (27.0-31.0) pg MCHC (32.0-36.0) g/dL RDW (12.0-15.0) % Plt Count (130-450) 10^3/uL MPV (7.9-10.8) fL Neut # (Auto) (1.5-6.6) 10^3/uL Lymph # (Auto) (1.5-3.5) 10^3/uL [place] # (Auto) (0.0-1.0) 10^3/uL Eos # (Auto) (0.0-0.7) 10^3/uL Baso # (Auto) (0.0-0.1) 10^3/uL Absolute Nucleated RBC x10^3/uL Nucleated RBC % /100WBC VBG pH 7.302 L (7.31-7.41) VBG pCO2 84.5 H (41-51) mmHg VBG pO2 32.8 (25-47) mmHg VBG HCO3 42.2 H (23-28) mmol/L VBG Total CO2 44.8 H (24-29) mmol/L VBG O2 Saturation 47.0 L (60-80) % VBG Base Excess 15.6 H (-2 - +2) mmol/L Sodium (135-145) mmol/L Potassium (3.5-4.5) mmol/L Chloride (101-111) mmol/L Carbon Dioxide (21-32) mmol/L Anion Gap (6-13) BUN (6-20) mg/dL Creatinine (0.6-1.3) mg/dL Estimated GFR (MDRD) (>89) Glucose (74-104) mg/dL POC Whole Bld Glucose 155 (70-100) mg/dL Calcium (8.5-10.3) mg/dL Magnesium (1.7-2.3) mg/dL Total Bilirubin (0.2-1.0) mg/dL AST (10-42) IU/L ALT (10-60) IU/L Alkaline Phosphatase (42-121) IU/L B-Natriuretic Peptide (5-100) pg/mL Total Protein (6.4-8.9) g/dL Albumin (3.2-5.5) g/dL Globulin (2.1-4.2) g/dL Albumin/Globulin Ratio (1.0-2.2) Lipase (11-82) U/L Procalcitonin Immunoas (<0.5) ng/mL Nasal Adenovirus (PCR) Nasal B. parapertussis DNA (PCR) Nasal Coronavir 229E PCR Nasal Coronavir HKU1 PCR Nasal Coronavir NL63 PCR Nasal Coronavir OC43 PCR Nasal Enterovir/Rhinovir PCR Nasal Influenza B PCR Nasal Influenza A PCR Nasal Parainfluen 1 PCR Nasal Parainfluen 2 PCR Nasal Parainfluen 3 PCR Nasal Parainfluen 4 PCR Nasal RSV (PCR) Nasal Screen MRSA (PCR) NEGATIVE (NEGATIVE) Nasal B.pertussis DNA PCR Nasal C.pneumoniae (PCR) Amish Human Metapneumo PCR Nasal M.pneumoniae (PCR) Nasal SARS-CoV-2 (PCR) 06/13/25 Range/Units 12:58 WBC 5.7 (4.8-10.8) x10^3/uL RBC 5.49 H (4.20-5.40) 10^6/uL Hgb 15.8 (12.0-16.0) g/dL Hct 55.5 H (37.0-47.0) % MCV 101.1 H (81.0-99.0) fL MCH 28.8 (27.0-31.0) pg MCHC 28.5 L (32.0-36.0) g/dL RDW 13.9 (12.0-15.0) % Plt Count 147 (130-450) 10^3/uL MPV 10.7 (7.9-10.8) fL Neut # (Auto) 3.4 (1.5-6.6) 10^3/uL Lymph # (Auto) 1.6 (1.5-3.5) 10^3/uL [place] # (Auto) 0.5 (0.0-1.0) 10^3/uL Eos # (Auto) 0.1 (0.0-0.7) 10^3/uL Baso # (Auto) 0.0 (0.0-0.1) 10^3/uL Absolute Nucleated RBC 0.02 x10^3/uL Nucleated RBC % 0.4 /100WBC VBG pH (7.31-7.41) VBG pCO2 (41-51) mmHg VBG pO2 (25-47) mmHg VBG HCO3 (23-28) mmol/L VBG Total CO2 (24-29) mmol/L VBG O2 Saturation (60-80) % VBG Base Excess (-2 - +2) mmol/L Sodium 141 (135-145) mmol/L Potassium 4.1 (3.5-4.5) mmol/L Chloride 98 L (101-111) mmol/L Carbon Dioxide 42 H* (21-32) mmol/L Anion Gap 1.0 L (6-13) BUN 10 (6-20) mg/dL Creatinine 0.5 L (0.6-1.3) mg/dL Estimated GFR (MDRD) 128 (>89) Glucose 173 H (74-104) mg/dL POC Whole Bld Glucose (70-100) mg/dL Calcium 9.7 (8.5-10.3) mg/dL Magnesium 2.1 (1.7-2.3) mg/dL Total Bilirubin 0.7 (0.2-1.0) mg/dL AST 14 (10-42) IU/L ALT 9 L (10-60) IU/L Alkaline Phosphatase 92 (42-121) IU/L B-Natriuretic Peptide 135 H (5-100) pg/mL Total Protein 6.6 (6.4-8.9) g/dL Albumin 3.7 (3.2-5.5) g/dL Globulin 2.9 (2.1-4.2) g/dL Albumin/Globulin Ratio 1.3 (1.0-2.2) Lipase 17 (11-82) U/L Procalcitonin Immunoas < 0.05 (<0.5) ng/mL Nasal Adenovirus (PCR) Nasal B. parapertussis DNA (PCR) Nasal Coronavir 229E PCR Nasal Coronavir HKU1 PCR Nasal Coronavir NL63 PCR Nasal Coronavir OC43 PCR Nasal Enterovir/Rhinovir PCR Nasal Influenza B PCR Nasal Influenza A PCR Nasal Parainfluen 1 PCR Nasal Parainfluen 2 PCR Nasal Parainfluen 3 PCR Nasal Parainfluen 4 PCR Nasal RSV (PCR) Nasal Screen MRSA (PCR) (NEGATIVE) Nasal B.pertussis DNA PCR Nasal C.pneumoniae (PCR) Amish Human Metapneumo PCR Nasal M.pneumoniae (PCR) Nasal SARS-CoV-2 (PCR) Diagnostic Imaging Diagnostic Imaging Results: positive Final report reviewed and Read independently Assessment/Plan Problem List (1) Acute hypoxic respiratory failure: (2) Acid-base imbalance: (3) CHF (congestive heart failure): Impression: Patient presents with 2 days of progressive BLE edema. She was dyspneic, orthopneic, and maintained SpO2 > 90% only with 5-6L of O2 (baseline on 2L NC PRN, infrequently). BNP was slightly elevated at 135, VBG and serum CO2 revealing for respiratory acidosis. CXR notable for CHF. CTA Chest/Thorax negative for PE, Venous Duplex negative for DVT. Respiratory PCR negative, no leukocytosis, BUN/Cr WNL. Echo from shows EF 60-65%. Med rec performed by pharmacy indicates that she is not on standard GDMT, only Empagliflozin. She has received Furosemide 40mg x 2 IV thus far with >1L urine output. Given recent viral illness I wonder about this being the trigger for her exacerbation and acute respiratory failure. 06/14 Clinically she continues to appear hypervolemic with BLE edema 2+, dyspnea. O2 needs are increased to 10L oxy mask to maintain SpO2 > 94%, has been refusing BIPAP overnight. Repeat VBG showing metabolic alkalosis, suspect secondary to diuresis. - Patient not on BIPAP most of 06/13, now placed on BIPAP noon of 06/14, hopefully this will improve her oxygenation and O2 needs o Titrate O2 to maintain SpO2 > 94% o Monitor for worsening respiratory symptoms and O2 needs - Strict intake/output, daily weights as able - Trend VBG - Continue SGLT2i Empagliflozin while inpatient - Obtain updated Echo to assess current EF, structural abnormalities contributing to fluid overload - Holding further diuresis at this time given persistent hypotension overnight Qualifiers: Heart failure chronicity: acute on chronic Heart failure type: u nspecified Qualified Code(s): I50.9 - Heart failure, unspecified (4) Urinary frequency: Impression: Patient endorsing new urinary frequency over the past week. She has some incontinence intermittently at baseline. No dysuria, changes to urine character. - Check urinalaysis to rule out UTI (5) Hypotension: Impression: Patient with persistent hypotension overnight and into 06/14 with SBP 80s-90s MAP < 65, requiring IV Albumin x 1. She denies dizziness. She continues to be hypotensive. Unclear what is causing this, however I suspect multifactorial secondary to IV diuresis, smooth muscle dysfunction from her myotonic dystrophy, heart failure, and chronic a-fib. - Holding further diuresis as above - Repeat IV Albumin x 1 Qualifiers: Hypotension type: unspecified hypotension type Qualified Code(s): I95.9 - Hypotension, unspecified (6) Altered mental status: Impression: Likely metabolic encephalopathy secondary to hypoxia, fluid overload, and acid- base imbalance. 06/14 her mentation appears mostly back to baseline. She is A&Ox4, answering questions appropriately and following all commands. - Treating secondary causes as above - Delirium precautions Qualifiers: Altered mental status type: unspecified Qualified Code(s): R41.82 - Altered mental status, unspecified (7) Atrial fibrillation: Impression: Patient with history of chronic atrial fibrillation. Comparison of current EKG strips to prior in Aug reveals no changes, continued atrial fibrillation with rate control HR 80s. She denies chest pain, palpitations. - Continue home Eliquis - Continuous telemetry in ICU Qualifiers: Atrial fibrillation type: longstanding persistent Qualified Code(s): I 48.11 - Longstanding persistent atrial fibrillation (8) Diabetes mellitus: Impression: HgbA1c 9.2 this admission. She is also on SGLT2 Empagliflozin. BG here up to 182. 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 She utilizes a walker at baseline, and requires apple sauce/yogurt with medications. She does drink thin liquids regularly without issues, is not on a special modified texture diet otherwise. Is not on any therapies for this illness. - No acute intervention needed at this time - PT evaluation Inpatient Checklist Lines/Drains/Airways: PIV Fluids/Electrolytes/Nutrition: Carbohydrate controlled diet DVT Prophylaxis: Patient is taking chronic Eliquis for PE/DVT Barriers to Discharge: O2 needs, respiratory improvement
[2025-06-14 10:59] LABS: ESTIMATED AVERAGE GLUCOSE 217 mg/dL (70-100); HEMOGLOBIN A1c% 9.2 % (4.27-6.07)
--- NOTE | 2025-06-14 12:20 | PHARMACY PROGRESS NOTE ---
Best Possible Medication History Admit Date and Time: 06/13/25 [id number] Home Medications Medication Instructions Recorded Confirmed Type simvastatin 10 mg tablet (Zocor) 10 mg PO DAILY 06/14/25 History vitamin B complex (B 1 ea PO DAILY 06/10/2306/14 History Complex-Vitamin B12 tablet) vitamin E (dl, acetate) 180 mg 400 unit PO DAILY 06/1006/14/25 History (400 unit) capsule gabapentin 300 mg capsule 300 mg PO HS #30 caps 06/14/25 Rx trazodone 50 mg tablet 50 mg PO HS #30 tabs 4 06/14/25 Rx apixaban 5 mg tablet (Eliquis) 5 mg ORAL BID 06/14/25 06/14/25 History biotin 1 mg capsule 1 mg PO DAILY 06/14/2506/14 History cholecalciferol (vitamin D3) 125 125 mcg PO DAILY 05/2506/14/25 History mcg (5,000 unit) tablet (Vitamin D3) empagliflozin 10 mg tablet 10 mg PO DAILY 06/14/25 History (Jardiance) folic acid 1 mg tablet 1 mg PO DAILY 06/14/2506/14 History insulin glargine U-300 conc 300 50 unit subcut DAILY 1 06/14/25 History unit/mL (3 mL) subcutaneous pen (Toujeo Max U-300 SoloStar) Processed by: Pharmacy (Medication reconciliation completed by Coat MakerJeniffer) Medications reviewed in ED?: No Medication History completed: Yes Patient Interview: Completed Secondary Source(s): Insurance records [facility] Statement: As the person ultimately responsible for medication therapy, providers are able to order a medication from an existing home medication list in [facility] via the "Reconcile Routine" prior to Confirmation of that medication by student support counselor. Such practice is discouraged except when the physician, in their clinical judgment, deems that a medical need exists for a medication without regard to previous use.
[2025-06-14] MEDS: CETIRIZINE 10 MG TABLET PO PRN (21:43)
[2025-06-15] MEDS: ONDANSETRON ODT 4 MG TABLET TL PRN (00:30)
[2025-06-15 04:42] LABS: HCT - HEMATOCRIT 48.9 % (37.0-47.0); HGB - HEMOGLOBIN 14.1 g/dL (12.0-16.0); MEAN PLATELET VOLUME 10.5 fL (7.9-10.8); NRBC ABSOLUTE COUNT (AUTO) 0.00 x10^3/uL; NUCLEATED RED BLOOD CELLS AUTO 0.0 /100WBC; PLT - PLATELET COUNT 138 10^3/uL (130-450); RED CELL DISTRIBUTION WIDTH 14.2 % (12.0-15.0)
[2025-06-15 04:59] LABS: BUN - BLOOD UREA NITROGEN 14.0 mg/dL (6-20); CARBON DIOXIDE - CO2 42.0 mmol/L (21-32); CREATININE 0.4 mg/dL (0.6-1.3); GFR - MDRD 166.0 (>89)
[2025-06-15] MEDS: ACETAMINOPHEN 325 MG TABLET PO PRN (08:05)
[2025-06-15 08:10] LABS: VBG BASE EXCESS 20.4 mmol/L (-2 - +2); VBG PCO2 80.7 mmHg (41-51); VBG PH 7.360 (7.31-7.41); VBG PO2 68.9 mmHg (25-47); VBG TOTAL CO2 48.5 mmol/L (24-29)
--- NOTE | 2025-06-15 10:03 | PROVIDER PROGRESS NOTE ---
Subjective Subjective Subjective: Katherin Foss is a 54-year-old female with a past medical history of myotonic dystrophy, DVT with PE, HFpEF (EF 60-65% in ), atrial-fibrillation, and type 1 DM who presented with increasing BLE edema, confusion, and hypoxia concerning for acute heart failure. Today, Katherin states she's doing well. She feels better compared to when she first got here. She denies any feelings of shortness of breath, cough, fevers, chills. She doesn't feel like she has had increased work of breathing. She does endorse mild dysuria today. Current Medications Current Medications Current Medications: Current Medications Generic Name Dose Route Start Last Admin Trade Name Freq PRN Reason Stop Dose Admin Acetaminophen 650 mg 06/13/25 18:52 06/15/25 08:05 Acetaminophen 325 Mg Tablet PO 650 mg Q4HR PRN Administration Pain 1 to 4, or Fever Apixaban 5 mg 06/14/25 09:00 06/15/25 08:06 Apixaban 5 Mg Tablet PO 5 mg BID PEREZ Administration Cetirizine HCl 10 mg 06/14/25 21:29 06/15/25 08:06 Cetirizine 10 Mg Tablet PO 10 mg DAILY PRN Administration Allergy Symptoms Furosemide 40 mg 06/14/25 09:00 06/15/25 08:07 Furosemide 40 Mg/4 Ml Vial IVP 40 mg DAILY PEREZ Administration Insulin Glargine-yfgn 10 unit 06/13/25 21:00 06/14/25 20:37 Insulin Glargine-Yfgn 300 Unit/3 Ml Pen SUBQ 10 unit QPM PEREZ Administration Insulin Human Lispro 1 - 5 unit 06/13/25 21:00 06/15/25 08:07 Insulin Lispro 300 Unit/3 Ml Pen SUBQ 1 unit 0800,1200,1700,2100 PEREZ Administration Protocol Ondansetron HCl 4 mg 06/13/25 18:52 06/15/25 00:30 Ondansetron Odt 4 Mg Tablet TL 4 mg Q6HR PRN Administration Nausea / Vomiting Oxycodone HCl 5 mg 06/13/25 18:52 Oxycodone 5 Mg Tablet PO Q4HR PRN Pain 5 to 7 Sodium Chloride 10 ml 06/13/25 18:52 06/14/25 06:31 Sodium Chloride Flush 0.9% 10 Ml Syringe IVP 10 ml PRN PRN Administration NEEDED PER PROVIDER ORDERS Sodium Chloride 10 ml 06/14/25 01:00 06/15/25 08:07 Sodium Chloride Flush 0.9% 10 Ml Syringe IVP 10 ml 0100,0900,1700 PEREZ Administration Objective Vital Signs/Intake & Output Reviewed Vital Signs: Yes Vital Signs: Vital Signs x48h Temp Pulse Resp BP BP Pulse Ox O2 Flow Rate 06/15/25 09:07 6 06/15/25 09:00 5 06/15/25 09:00 99 16 103/62 94 6 06/15/25 08:00 98.7 F 87 19 103/55 L 94 6 06/15/25 07:21 6 06/15/25 07:10 6 06/15/25 07:00 79 21 99/54 L 90 L 6 06/15/25 06:11 6 06/15/25 06:00 81 26 H 99/54 L 92 6 06/15/25 05:00 73 20 91/50 L 93 6 06/15/25 04:00 68 20 84/50 L 95 06/15/25 03:00 75 23 90/52 L 96 Intake & Output: Intake & Output 06/12/25 06/13/25 06/14/25 06/15/25 23:59 23:59 23:59 23:59 Intake Total 520 / 520 490 / 490 Output Total 2024 500 / 500 Balance -1505 / -1505 -10 / -10 Weight (kg) 95 kg 87 kg 85.5 kg Objective Comments/Other: Constitutional: Adult female who lies semi-Boles's in hospital bed in [facility]. Integument: Skin smooth, warm, dry and intact. HEENT: Dry lips, moist small, lesion to inner upper lip. Normocephalic, atraumatic. Facial features symmetrical at rest and with movement. Respiratory: Lungs diminished in the bases bilaterally. No crackles, rales. Shallow respirations. Chest expansion symmetric. Cardiac: Regular S1, S2 heart sounds. No murmur detected. Peripheral Vascular: BLE edema 1+. Pedal pulses 1+. Warm and non-cyanotic. Gastrointestinal: Abdomen is warm, soft, and nontender. Symmetrical, round contour. Bowel tones audible and normoactive. Musculoskeletal: BUE/BLE motor strength 4/5. Full ROM in upper and lower extremities. Neurological: Alert, oriented x 4 to self, place, time, situation. Recent and remote memory intact. Calm, cooperative, follows commands. Mood appropriate to situation. Thought process coherent with appropriate judgment. Speech fluent. PERRLA. Sensation grossly intact. Lab Results 06/15/25 04:24 06/15/25 04:24 Other Labs: Lab Results x24hrs 06/15/25 06/15/25 06/15/25 Range/Units 07:59 07:58 04:24 WBC 6.8 (4.8-10.8) x10^3/uL RBC 4.90 (4.20-5.40) 10^6/uL Hgb 14.1 (12.0-16.0) g/dL Hct 48.9 H (37.0-47.0) % MCV 99.8 H (81.0-99.0) fL MCH 28.8 (27.0-31.0) pg MCHC 28.8 L (32.0-36.0) g/dL RDW 14.2 (12.0-15.0) % Plt Count 138 (130-450) 10^3/uL MPV 10.5 (7.9-10.8) fL Neut # (Auto) 3.6 (1.5-6.6) 10^3/uL Lymph # (Auto) 2.3 (1.5-3.5) 10^3/uL Prentiss # (Auto) 0.8 (0.0-1.0) 10^3/uL Eos # (Auto) 0.1 (0.0-0.7) 10^3/uL Baso # (Auto) 0.0 (0.0-0.1) 10^3/uL Absolute Nucleated RBC 0.00 x10^3/uL Nucleated RBC % 0.0 /100WBC VBG pH 7.360 (7.31-7.41) VBG pCO2 80.7 H (41-51) mmHg VBG pO2 68.9 H (25-47) mmHg VBG HCO3 46.0 H (23-28) mmol/L VBG Total CO2 48.5 H (24-29) mmol/L VBG O2 Saturation 93.0 H (60-80) % VBG Base Excess 20.4 H (-2 - +2) mmol/L Sodium 141 (135-145) mmol/L Potassium 3.5 (3.5-4.5) mmol/L Chloride 95 L (101-111) mmol/L Carbon Dioxide 42 H* (21-32) mmol/L Anion Gap 4.0 L (6-13) BUN 14 (6-20) mg/dL Creatinine 0.4 L (0.6-1.3) mg/dL Estimated GFR (MDRD) 166 (>89) Glucose 135 H (74-104) mg/dL POC Whole Bld Glucose 145 (70-100) mg/dL Estimat Average Glucose (70-100) mg/dL Hemoglobin A1c % (4.27-6.07) % Lactic Acid (0.5-2.2) mmol/L Calcium 9.5 (8.5-10.3) mg/dL 06/14/25 06/14/25 06/14/25 Range/Units 20:34 16:32 11:46 WBC (4.8-10.8) x10^3/uL RBC (4.20-5.40) 10^6/uL Hgb (12.0-16.0) g/dL Hct (37.0-47.0) % MCV (81.0-99.0) fL MCH (27.0-31.0) pg MCHC (32.0-36.0) g/dL RDW (12.0-15.0) % Plt Count (130-450) 10^3/uL MPV (7.9-10.8) fL Neut # (Auto) (1.5-6.6) 10^3/uL Lymph # (Auto) (1.5-3.5) 10^3/uL Prentiss # (Auto) (0.0-1.0) 10^3/uL Eos # (Auto) (0.0-0.7) 10^3/uL Baso # (Auto) (0.0-0.1) 10^3/uL Absolute Nucleated RBC x10^3/uL Nucleated RBC % /100WBC VBG pH (7.31-7.41) VBG pCO2 (41-51) mmHg VBG pO2 (25-47) mmHg VBG HCO3 (23-28) mmol/L VBG Total CO2 (24-29) mmol/L VBG O2 Saturation (60-80) % VBG Base Excess (-2 - +2) mmol/L Sodium (135-145) mmol/L Potassium (3.5-4.5) mmol/L Chloride (101-111) mmol/L Carbon Dioxide (21-32) mmol/L Anion Gap (6-13) BUN (6-20) mg/dL Creatinine (0.6-1.3) mg/dL Estimated GFR (MDRD) (>89) Glucose (74-104) mg/dL POC Whole Bld Glucose 174 215 (70-100) mg/dL Estimat Average Glucose (70-100) mg/dL Hemoglobin A1c % (4.27-6.07) % Lactic Acid < 0.2 L (0.5-2.2) mmol/L Calcium (8.5-10.3) mg/dL 06/14/25 06/14/25 Range/Units 11:34 04:23 WBC (4.8-10.8) x10^3/uL RBC (4.20-5.40) 10^6/uL Hgb (12.0-16.0) g/dL Hct (37.0-47.0) % MCV (81.0-99.0) fL MCH (27.0-31.0) pg MCHC (32.0-36.0) g/dL RDW (12.0-15.0) % Plt Count (130-450) 10^3/uL MPV (7.9-10.8) fL Neut # (Auto) (1.5-6.6) 10^3/uL Lymph # (Auto) (1.5-3.5) 10^3/uL Prentiss # (Auto) (0.0-1.0) 10^3/uL Eos # (Auto) (0.0-0.7) 10^3/uL Baso # (Auto) (0.0-0.1) 10^3/uL Absolute Nucleated RBC x10^3/uL Nucleated RBC % /100WBC VBG pH (7.31-7.41) VBG pCO2 (41-51) mmHg VBG pO2 (25-47) mmHg VBG HCO3 (23-28) mmol/L VBG Total CO2 (24-29) mmol/L VBG O2 Saturation (60-80) % VBG Base Excess (-2 - +2) mmol/L Sodium (135-145) mmol/L Potassium (3.5-4.5) mmol/L Chloride (101-111) mmol/L Carbon Dioxide (21-32) mmol/L Anion Gap (6-13) BUN (6-20) mg/dL Creatinine (0.6-1.3) mg/dL Estimated GFR (MDRD) (>89) Glucose (74-104) mg/dL POC Whole Bld Glucose 182 (70-100) mg/dL Estimat Average Glucose 217 H (70-100) mg/dL Hemoglobin A1c % 9.2 H (4.27-6.07) % Lactic Acid (0.5-2.2) mmol/L Calcium (8.5-10.3) mg/dL Diagnostic Imaging Diagnostic Imaging Results: positive Final report reviewed and Read independently Assessment/Plan Problem List (1) Acute hypoxic respiratory failure: (2) Acid-base imbalance: (3) CHF (congestive heart failure): Impression: Patient presents with progressive BLE edema, dyspnea, and maintained SpO2 > 90% only with 5-6L of O2 (baseline on 2L NC PRN, infrequently). BNP was slightly elevated at 135, VBG and serum CO2 revealing for respiratory acidosis. CTA Chest/Thorax negative for PE. Respiratory PCR negative, no leukocytosis. ECHO from shows EF 60-65%. - Likely multifactorial with CHF exacerbation, recent viral illness, progression of underlying neuromuscular disease. - BIPAP placed for increased work of breathing. Used intermittently throughout the day. May be partly attributed to worsening of underlying myotonic dystrophy. o Titrate O2 to maintain SpO2 > 92% - Strict intake/output, daily weights as able. Continue IV Lasix, now decreased to 40mg daily IV. Lower extremity edema improved. Repeat ECHO ordered. Qualifiers: Heart failure chronicity: acute on chronic Heart failure type: u nspecified Qualified Code(s): I50.9 - Heart failure, unspecified (4) Urinary frequency: Impression: Patient endorsing new urinary frequency over the past week, as well as mild dysuria. She has some incontinence intermittently at baseline. - UA positive for moderate bacteria. Negative LE, nitrites. Some contamination noted with squamous cells. Will complete course of oral antibiotics as patietn is symptomatic. (5) Hypotension: Impression: Patient with continued hypotension. No white count, afebrile, no infectious symptoms. AM cortisol ordered, although patient has no recent steroid use, euglycemic, normothermic. - Most likely due to worsening autonomic dysfunciton in setting of progressive myoclonic dystropy. Will consider midodrine if no improvement. Qualifiers: Hypotension type: unspecified hypotension type Qualified Code(s): I95.9 - Hypotension, unspecified (6) Altered mental status: Impression: Resolved. - Treating secondary causes as above. - Delirium precautions. Qualifiers: Altered mental status type: unspecified Qualified Code(s): R41.82 - Altered mental status, unspecified (7) Atrial fibrillation: Impression: Patient with history of chronic atrial fibrillation. She denies chest pain, palpitations. - Continue home Eliquis. Will restart metoprolol today with hold par.ameters. - Continuous telemetry in ICU. Qualifiers: Atrial fibrillation type: longstanding persistent Qualified Code(s): I 48.11 - Longstanding persistent atrial fibrillation (8) Diabetes mellitus: Impression: HgbA1c 9.2 this admission. She is also on SGLT2 Empagliflozin. 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 She utilizes a walker at baseline, and requires apple sauce/yogurt with medications. She does drink thin liquids regularly without issues, is not on a special modified texture diet otherwise. Is not on any therapies for this illness. - No acute intervention needed at this time.
[2025-06-15 10:20] LABS: GLUCOSE, URINE (UA) 500 mg/dL (NEGATIVE); KETONES,URINE (UA) NEGATIVE (NEGATIVE); OCCULT BLOOD,URINE MODERATE (NEGATIVE); SQUAMOUS EPITHELIAL CELL,UR FEW Squamous (<= Few)
[2025-06-15] MEDS: NITROFURANTOIN MACRO 100 MG CAPSULE PO SCH (12:13)
[2025-06-15] MEDS: METOPROLOL SUCCINATE 25 MG TABLET PO SCH (12:14)
[2025-06-16 04:35] LABS: HCT - HEMATOCRIT 51.8 % (37.0-47.0); HGB - HEMOGLOBIN 15.2 g/dL (12.0-16.0); MEAN PLATELET VOLUME 10.3 fL (7.9-10.8); NRBC ABSOLUTE COUNT (AUTO) 0.00 x10^3/uL; NUCLEATED RED BLOOD CELLS AUTO 0.0 /100WBC; PLT - PLATELET COUNT 142 10^3/uL (130-450); RED CELL DISTRIBUTION WIDTH 14.0 % (12.0-15.0)
[2025-06-16 04:46] LABS: VBG PH 7.424 (7.31-7.41)
[2025-06-16 04:47] LABS: VBG BASE EXCESS 18.3 mmol/L (-2 - +2); VBG PCO2 65.0 mmHg (41-51); VBG PO2 87.9 mmHg (25-47); VBG TOTAL CO2 44.9 mmol/L (24-29)
[2025-06-16 04:54] LABS: BUN - BLOOD UREA NITROGEN 15.0 mg/dL (6-20); CARBON DIOXIDE - CO2 40.0 mmol/L (21-32); CREATININE 0.5 mg/dL (0.6-1.3); GFR - MDRD 128.0 (>89)
--- NOTE | 2025-06-16 08:05 | PROVIDER PROGRESS NOTE ---
Subjective Subjective Subjective: Katherin Foss is a 54-year-old female with a past medical history of myotonic dystrophy, DVT with PE, HFpEF (EF 60-65% in ), atrial-fibrillation, and type 1 DM who presented with increasing BLE edema, confusion, and hypoxia concerning for acute heart failure. Today, Katherin states she's doing well. She feels better compared to when she first got here. She denies any feelings of shortness of breath, cough, fevers, chills. She doesn't feel like she has had increased work of breathing. She does endorse mild dysuria today. She is some sinus congestion, and states that she does have allergies at home. We talked about how she may have had a home CPAP. Will call her mom or sister today to confirm. Current Medications Current Medications Current Medications: Current Medications Generic Name Dose Route Start Last Admin Trade Name Freq PRN Reason Stop Dose Admin Acetaminophen 650 mg 06/13/25 18:52 06/16/25 01:10 Acetaminophen 325 Mg Tablet PO 650 mg Q4HR PRN Administration Pain 1 to 4, or Fever Apixaban 5 mg 06/14/25 09:00 06/15/25 20:35 Apixaban 5 Mg Tablet PO 5 mg BID PEREZ Administration Cetirizine HCl 10 mg 06/14/25 21:29 06/15/25 08:06 Cetirizine 10 Mg Tablet PO 10 mg DAILY PRN Administration Allergy Symptoms Furosemide 40 mg 06/14/25 09:00 06/15/25 08:07 Furosemide 40 Mg/4 Ml Vial IVP 40 mg DAILY PEREZ Administration Insulin Glargine-yfgn 10 unit 06/13/25 21:00 06/15/25 20:35 Insulin Glargine-Yfgn 300 Unit/3 Ml Pen SUBQ 10 unit QPM PEREZ Administration Insulin Human Lispro 1 - 5 unit 06/13/25 21:00 06/15/25 20:34 Insulin Lispro 300 Unit/3 Ml Pen SUBQ 1 unit 0800,1200,1700,2100 PEREZ Administration Protocol Lidocaine 1 patch 06/16/25 02:10 06/16/25 02:15 Lidocaine Patch 4% TOP 1 patch DAILY PEREZ Administration Metoprolol Succinate 25 mg 06/15/25 12:00 06/15/25 12:14 Metoprolol Succinate 25 Mg Tablet PO 25 mg DAILY PEREZ Administration Nitrofurantoin 100 mg 06/15/25 11:00 06/15/25 20:36 Nitrofurantoin Macro 100 Mg Capsule PO 100 mg BID PEREZ Administration Ondansetron HCl 4 mg 06/13/25 18:52 06/15/25 00:30 Ondansetron Odt 4 Mg Tablet TL 4 mg Q6HR PRN Administration Nausea / Vomiting Oxycodone HCl 5 mg 06/13/25 18:52 Oxycodone 5 Mg Tablet PO Q4HR PRN Pain 5 to 7 Polyethylene Glycol 17 gm 06/16/25 09:00 Polyethylene Glycol 3350 17 Gm Packet PO DAILY PEREZ Sodium Chloride 10 ml 06/13/25 18:52 06/14/25 06:31 Sodium Chloride Flush 0.9% 10 Ml Syringe IVP 10 ml PRN PRN Administration NEEDED PER PROVIDER ORDERS Sodium Chloride 10 ml 06/14/25 01:00 06/15/25 20:37 Sodium Chloride Flush 0.9% 10 Ml Syringe IVP 10 ml 0100,0900,1700 PEREZ Administration Objective Vital Signs/Intake & Output Reviewed Vital Signs: Yes Vital Signs: Vital Signs x48h Temp Pulse Resp BP Pulse Ox O2 Flow Rate 06/16/25 07:00 82 24 100/52 L 94 5 06/16/25 06:00 66 18 84/52 L 95 5 06/16/25 05:00 5 06/16/25 05:00 76 23 94/49 L 91 L 5 06/16/25 04:00 68 24 92/54 L 93 06/16/25 03:00 61 27 H 84/47 L 92 06/16/25 02:00 98.1 F 79 18 108/76 92 06/16/25 01:00 81 24 98/54 L 92 5 06/16/25 01:00 5 Intake & Output: Intake & Output 06/13/25 06/14/25 06/15/25 06/16/25 23:59 23:59 23:59 23:59 Intake Total 520 / 520 1100 / 1100 300 / 300 Output Total 2024 / 2024 1500 / 1500 500 / 500 Balance -1505 / -1505 -400 / -400 -200 / -200 Weight (kg) 95 kg 87 kg 85.5 kg 84.5 kg Objective Comments/Other: Constitutional: Adult female who lies semi-Boles's in hospital bed in [facility]. Integument: Skin smooth, warm, dry and intact. HEENT: Dry lips, moist small, lesion to inner upper lip. Normocephalic, atraumatic. Facial features symmetrical at rest and with movement. Respiratory: Lungs diminished in the bases bilaterally. No crackles, rales. Shallow respirations. Chest expansion symmetric. Cardiac: Regular S1, S2 heart sounds. No murmur detected. Peripheral Vascular: BLE edema 1+. Pedal pulses 1+. Warm and non-cyanotic. Gastrointestinal: Abdomen is warm, soft, and nontender. Symmetrical, round contour. Bowel tones audible and normoactive. Musculoskeletal: BUE/BLE motor strength 4/5. Full ROM in upper and lower extremities. Neurological: Alert, oriented x 4 to self, place, time, situation. Recent and remote memory intact. Calm, cooperative, follows commands. Mood appropriate to situation. Thought process coherent with appropriate judgment. Speech fluent. PERRLA. Sensation grossly intact. Lab Results 06/16/25 04:27 06/16/25 04:27 Other Labs: Lab Results x24hrs 06/16/25 06/15/25 06/15/25 Range/Units 04:27 20:31 16:59 WBC 6.4 (4.8-10.8) x10^3/uL RBC 5.24 (4.20-5.40) 10^6/uL Hgb 15.2 (12.0-16.0) g/dL Hct 51.8 H (37.0-47.0) % MCV 98.9 (81.0-99.0) fL MCH 29.0 (27.0-31.0) pg MCHC 29.3 L (32.0-36.0) g/dL RDW 14.0 (12.0-15.0) % Plt Count 142 (130-450) 10^3/uL MPV 10.3 (7.9-10.8) fL Neut # (Auto) 3.4 (1.5-6.6) 10^3/uL Lymph # (Auto) 2.2 (1.5-3.5) 10^3/uL Hardy # (Auto) 0.6 (0.0-1.0) 10^3/uL Eos # (Auto) 0.1 (0.0-0.7) 10^3/uL Baso # (Auto) 0.0 (0.0-0.1) 10^3/uL Absolute Nucleated RBC 0.00 x10^3/uL Nucleated RBC % 0.0 /100WBC VBG pH 7.424 H (7.31-7.41) VBG pCO2 65.0 H (41-51) mmHg VBG pO2 87.9 H (25-47) mmHg VBG HCO3 42.9 H (23-28) mmol/L VBG Total CO2 44.9 H (24-29) mmol/L VBG O2 Saturation 99.0 H (60-80) % VBG Base Excess 18.3 H (-2 - +2) mmol/L Sodium 143 (135-145) mmol/L Potassium 4.0 (3.5-4.5) mmol/L Chloride 98 L (101-111) mmol/L Carbon Dioxide 40 H* (21-32) mmol/L Anion Gap 5.0 L (6-13) BUN 15 (6-20) mg/dL Creatinine 0.5 L (0.6-1.3) mg/dL Estimated GFR (MDRD) 128 (>89) Glucose 146 H (74-104) mg/dL POC Whole Bld Glucose 160 180 (70-100) mg/dL Calcium 10.0 (8.5-10.3) mg/dL Magnesium 1.9 (1.7-2.3) mg/dL Urine Color Urine Clarity (CLEAR) Urine pH (5.0-7.5) PH Ur Specific Cavend[place] (1.002-1.030) Urine Protein (NEGATIVE) mg/dL Urine Glucose (UA) (NEGATIVE) mg/dL Urine Ketones (NEGATIVE) mg/dL Urine Occult Blood (NEGATIVE) Urine Nitrite (NEGATIVE) Urine Bilirubin (NEGATIVE) Urine Urobilinogen (NORMAL) E.U./dL Ur Leukocyte Esterase (NEGATIVE) Urine RBC (0-5) /HPF Urine WBC (0-5) /HPF Ur Squamous Epith Cells (<= Few) Urine Bacteria (None Seen) /HPF 06/15/25 06/15/25 06/15/25 Range/Units 11:54 09:30 07:59 WBC (4.8-10.8) x10^3/uL RBC (4.20-5.40) 10^6/uL Hgb (12.0-16.0) g/dL Hct (37.0-47.0) % MCV (81.0-99.0) fL MCH (27.0-31.0) pg MCHC (32.0-36.0) g/dL RDW (12.0-15.0) % Plt Count (130-450) 10^3/uL MPV (7.9-10.8) fL Neut # (Auto) (1.5-6.6) 10^3/uL Lymph # (Auto) (1.5-3.5) 10^3/uL Hardy # (Auto) (0.0-1.0) 10^3/uL Eos # (Auto) (0.0-0.7) 10^3/uL Baso # (Auto) (0.0-0.1) 10^3/uL Absolute Nucleated RBC x10^3/uL Nucleated RBC % /100WBC VBG pH 7.360 (7.31-7.41) VBG pCO2 80.7 H (41-51) mmHg VBG pO2 68.9 H (25-47) mmHg VBG HCO3 46.0 H (23-28) mmol/L VBG Total CO2 48.5 H (24-29) mmol/L VBG O2 Saturation 93.0 H (60-80) % VBG Base Excess 20.4 H (-2 - +2) mmol/L Sodium (135-145) mmol/L Potassium (3.5-4.5) mmol/L Chloride (101-111) mmol/L Carbon Dioxide (21-32) mmol/L Anion Gap (6-13) BUN (6-20) mg/dL Creatinine (0.6-1.3) mg/dL Estimated GFR (MDRD) (>89) Glucose (74-104) mg/dL POC Whole Bld Glucose 145 (70-100) mg/dL Calcium (8.5-10.3) mg/dL Magnesium (1.7-2.3) mg/dL Urine Color YELLOW Urine Clarity CLEAR (CLEAR) Urine pH 7.0 (5.0-7.5) PH Ur Specific [place]end[place] 1.010 (1.002-1.030) Urine Protein TRACE (NEGATIVE) mg/dL Urine Glucose (UA) 500 H (NEGATIVE) mg/dL Urine Ketones NEGATIVE (NEGATIVE) mg/dL Urine Occult Blood MODERATE (NEGATIVE) Urine Nitrite NEGATIVE (NEGATIVE) Urine Bilirubin NEGATIVE (NEGATIVE) Urine Urobilinogen 4 H (NORMAL) E.U./dL Ur Leukocyte Esterase NEGATIVE (NEGATIVE) Urine RBC 11-25 H (0-5) /HPF Urine WBC 0-3 (0-5) /HPF Ur Squamous Epith Cells FEW Squamous (<= Few) Urine Bacteria Moderate H (None Seen) /HPF Diagnostic Imaging Diagnostic Imaging Results: positive Final report reviewed and Read independently Assessment/Plan Problem List (1) Acute hypoxic respiratory failure: (2) Acid-base imbalance: (3) CHF (congestive heart failure): Impression: Likely multifactorial with CHF exacerbation, recent viral illness, progression of underlying neuromuscular disease. CT angiogram of chest shows no pulmonary embolism. Does show cardiomegaly, as well as shallow inspiratory effort. Compressive atelectasis is noted bilaterally. Continue incentive spirometry, out of bed, ambulation. BIPAP for increased work of breathing, shallow respirations which may be leading to CO2 retention. Used intermittently throughout the day. May be partly attributed to worsening of underlying myotonic dystrophy. Strict intake/output, daily weights as able. Urine output over the last 48 hours has been 2 L, 1.5 L, 1.2 L. She has had a net negative balance for the past 48 hours as well. Her weight has decreased from 87 kg to 84.5 kg. She does not know what her dry weight is. Continue IV Lasix, now decreased to 40mg daily IV. Lower extremity edema improved. Repeat ECHO ordered, final report pending. Qualifiers: Heart failure chronicity: acute on chronic Heart failure type: u nspecified Qualified Code(s): I50.9 - Heart failure, unspecified (4) Acute cystitis: Impression: Patient endorsing new urinary frequency over the past week, as well as mild dysuria. She has some incontinence intermittently at baseline. UA positive for moderate bacteria. Negative LE, nitrites. Some contamination noted with squamous cells. Will complete course of oral antibiotics as patient is symptomatic with 5 days of Macrobid. Qualifiers: Hematuria presence: without hematuria Qualified Code(s): N30.00 - Acute cystitis without hematuria (5) Hypotension: Impression: Patient with continued hypotension, although now improved. No white count, afebrile, no infectious symptoms. AM cortisol ordered, although patient has no recent steroid use, euglycemic, normothermic. Most likely due to worsening autonomic dysfunciton in setting of progressive myoclonic dystropy. Will consider midodrine if no improvement. Qualifiers: Hypotension type: unspecified hypotension type Qualified Code(s): I95.9 - Hypotension, unspecified (6) Altered mental status: Impression: Resolved. Treating secondary causes as above. Delirium precautions. Qualifiers: Altered mental status type: unspecified Qualified Code(s): R41.82 - Altered mental status, unspecified (7) Atrial fibrillation: Impression: Patient with history of chronic atrial fibrillation. She denies chest pain, palpitations. Continue home Eliquis. Will restart metoprolol today with hold par.ameters. Continuous telemetry in ICU. Qualifiers: Atrial fibrillation type: longstanding persistent Qualified Code(s): I 48.11 - Longstanding persistent atrial fibrillation (8) Diabetes mellitus: Impression: HgbA1c 9.2 this admission. BG ACHS, carbohydrate controlled diet, hypoglycemic protocol in place. Continue insulin glargine 10 units nightly, low dose correctional insulin. 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 She utilizes a walker at baseline, and requires apple sauce/yogurt with medications. She does drink thin liquids regularly without issues, is not on a special modified texture diet otherwise. Is not on any therapies for this illness. At baseline mobility.
--- NOTE | 2025-06-16 11:04 | ECHO Report ---
Version: 1 Study ID: [id number] [id number] Adult Echocardiogram Report Name: ANY [place] Study Date: 06/15/2025, 1: 42 PM BP: 103 / 63 mmHg Patient Location: ICU^2303^01 HR: 80 bpm : 1970 (MM/DD/YYYY) Gender: Female Height: 64 in Age: 54 Years Weight: 188.495 lb BSA: 1.91 m² Reason For Study: Atrial fibrillation History: Acute hypoxic respiratory failure h/p Myotonic dystrophy and HFpEF Interpretation Summary Global left ventricular systolic function is mildly decreased. The visual left ventricular ejection fraction is estimated at 45 to 50%. The right ventricle is mildly dilated. No concerning cardiac valve disease is noted. Left Ventricle: The left ventricle is normal in size. Global left ventricular systolic function is mildly decreased. The visual left ventricular ejection fraction is estimated at 45 to 50%. Beat to beat variability. No regional wall motion abnormalities are present. Diastolic function could not be accurately assessed due to irregular rhythm. Right Ventricle: The right ventricle is mildly dilated. The basal right ventricular diameter measured from a right ventricular focused view is 4.3 cm. The right ventricular systolic function is mildly decreased. The TAPSE and RV DTI are not reflective of the right ventricular systolic function due to discrepancy in the function of the lateral base and other wall segments. The right ventricular fractional area change (FAC) is 29%. Aortic Valve: The aortic valve is trileaflet. The aortic valve is normal in structure and function. No aortic regurgitation is present. Mitral Valve: The mitral valve leaflets appear thickened, but with normal motion. No evidence of mitral stenosis is seen. There is trace mitral regurgitation. Tricuspid Valve: The tricuspid valve is normal in structure and function. Trace tricuspid regurgitation present. Pulmonic Valve: The pulmonic valve is normal in structure and function. Trace pulmonic valvular regurgitation is present. Left Atrium: The left atrium is mildly dilated. The left atrial volume indexed to body surface area is 36 ml/m2. This refers to the maximal volume measured prior to mitral valve opening. Right Atrium: The right atrium is moderately dilated. The inferior vena cava is mildly dilated with mildly decreased collapse with sniff (estimated right atrial pressure 10-15mmHg). Atrial Septum: Lipomatous hypertrophy of the interatrial septum is present. Aorta: The ascending aorta is not well seen. The aorta at the sinus of Valsalva measures 3.1cm. Pulmonary Artery: Main PA and branches are dilated. The pulmonary artery systolic pressure, calculated from a peak tricuspid regurgitant velocity in conjunction with an estimated right atrial pressure, is 35mmHg. Pericardium/Pleural Space: A small pericardial effusion is present. The pericardial effusion is circumferential. There is no evidence for hemodynamic compromise. Left Ventricle IVSd: 0.93 cm LVIDd: 4.6 cm LVPWd: 1.01 cm LVIDs: 3.7 cm EDV(MOD-sp4): 67.7 ml LVLd ap4: 7.1 cm ESV(MOD-sp4): 36.9 ml LVLs ap4: 6.6 cm EDV(MOD-sp2): 66.1 ml ESV(MOD-sp2): 31.0 ml Right Ventricle RV NEVA: 11.9 cm² RV RAFFAELE: 16.7 cm² Atria LA dimension: 5.0 cm LAV(MOD-sp4): 69.1 ml LAV(MOD-sp2): 65.5 ml Aortic Valve LV V1 mean P.65 mmHg LV V1 mean: 60.2 cm/sec LV V1 VTI: 15.6 cm LV V1 max: 84.9 cm/sec LV V1 max P.9 mmHg Ao max P.4 mmHg Ao V2 max: 126.6 cm/sec Tricuspid Valve TR max P.2 mmHg TR max danielle: 224.8 cm/sec TV max P.2 mmHg Aorta Ao root diam: 3.1 cm MMode/2D Measurements & Calculations Ao root diam: 3.1 cm BMI: 32.4 kilograms/m² BSA([place]): 2.00 m² EDV(MOD-sp2): 66.1 ml EDV(MOD-sp4): 67.7 ml EF (est.): 49.3 % EF Mod BP: 47.4 % ESV(MOD-sp2): 31.0 ml ESV(MOD-sp4): 36.9 ml IVSd: 0.93 cm LA A4C-A/L: 19.6 cm² LA dimension: 5.0 cm LA ESV-A/L: 60.3 ml LAV(MOD-sp2): 65.5 ml LAV(MOD-sp4): 69.1 ml LVIDd: 4.6 cm LVIDs: 3.7 cm LVLd ap4: 7.1 cm LVLs ap4: 6.6 cm LVPWd: 1.01 cm RV RAFFAELE: 16.7 cm² RV NEVA: 11.9 cm² RV FAC: 28.9 % Doppler Measurements & Calculations Ao max P.4 mmHg Ao V2 max: 126.6 cm/sec LV V1 max: 84.9 cm/sec LV V1 max P.9 mmHg LV V1 mean: 60.2 cm/sec LV V1 mean P.65 mmHg LV V1 VTI: 15.6 cm PA max P.14 mmHg PA V2 max: 53.4 cm/sec RAP systole: 15.0 mmHg TR max P.2 mmHg TR max danielle: 224.8 cm/sec TV max P.2 mmHg Other Measurements & Calculations Ao root area: 7.6 cm² EDV(Teich): 96.3 ml EF(MOD-sp2): 53.2 % EF(MOD-sp4): 45.4 % EF(sp-el): 54.4 % EF(Teich): 39.9 % ESV(Teich): 57.9 ml FS: 19.3 % RVSP(TR): 35.2 mmHg SV(MOD-sp4): 30.7 ml Procedure Notes: A complete two-dimensional transthoracic echocardiogram was performed (2D, M- mode, Doppler and color flow Doppler). Indication: Evaluate cardiac and valve function. The underlying rhythm was atrial fibrillation. The underlying rhythm was atrial flutter. CPT Codes: 18685/[id number]: Transthoracic Echo with Spectral and Color Doppler. MD Debbie Conroy 06/16/2025, 11: 03 AM Ordering Physician: Fabio Parsons Referring Physician: Art Belcher Performed By: Margie Suero RDCS
[2025-06-16] MEDS: SODIUM CHLORIDE 0.65% NASAL SPRAY NAS PRN (21:38)
[2025-06-17 04:18] LABS: HCT - HEMATOCRIT 51.8 % (37.0-47.0); HGB - HEMOGLOBIN 14.9 g/dL (12.0-16.0); MEAN PLATELET VOLUME 10.1 fL (7.9-10.8); NRBC ABSOLUTE COUNT (AUTO) 0.00 x10^3/uL; NUCLEATED RED BLOOD CELLS AUTO 0.0 /100WBC; PLT - PLATELET COUNT 155 10^3/uL (130-450); RED CELL DISTRIBUTION WIDTH 13.8 % (12.0-15.0)
[2025-06-17 04:35] LABS: BUN - BLOOD UREA NITROGEN 17.0 mg/dL (6-20); CARBON DIOXIDE - CO2 42.0 mmol/L (21-32); CREATININE 0.5 mg/dL (0.6-1.3); GFR - MDRD 128.0 (>89)
--- NOTE | 2025-06-17 07:49 | PROVIDER PROGRESS NOTE ---
Subjective Subjective Subjective: Katherin Foss is a 54-year-old female with a past medical history of myotonic dystrophy, DVT with PE, HFpEF (EF 60-65% in ), atrial-fibrillation, and type 1 DM who presented with increasing BLE edema, confusion, and hypoxia. Today, Katherin states she's doing well. She feels better compared to when she first got here. She denies any feelings of shortness of breath, cough, fevers, chills. She doesn't feel like she has had increased work of breathing. She had some sinus congestion, and states that she does have allergies at home. We talked about how she may have had a home CPAP. Have tried calling mother and sister without success a few times to obtain more information about neurology follow up, whether she's seen pulmonology in the outpatient, etc. Will continue to try. Current Medications Current Medications Current Medications: Current Medications Generic Name Dose Route Start Last Admin Trade Name Freq PRN Reason Stop Dose Admin Acetaminophen 650 mg 06/13/25 18:52 06/16/25 20:34 Acetaminophen 325 Mg Tablet PO 650 mg Q4HR PRN Administration Pain 1 to 4, or Fever Apixaban 5 mg 06/14/25 09:00 06/16/25 20:35 Apixaban 5 Mg Tablet PO 5 mg BID PEREZ Administration Cetirizine HCl 10 mg 06/14/25 21:29 06/16/25 08:22 Cetirizine 10 Mg Tablet PO 10 mg DAILY PRN Administration Allergy Symptoms Furosemide 40 mg 06/14/25 09:00 06/16/25 08:22 Furosemide 40 Mg/4 Ml Vial IVP 40 mg DAILY PEREZ Administration Insulin Glargine-yfgn 10 unit 06/13/25 21:00 06/16/25 20:35 Insulin Glargine-Yfgn 300 Unit/3 Ml Pen SUBQ 10 unit QPM PEREZ Administration Insulin Human Lispro 1 - 5 unit 06/13/25 21:00 06/16/25 20:36 Insulin Lispro 300 Unit/3 Ml Pen SUBQ 3 unit 0800,1200,1700,2100 PEREZ Administration Protocol Lidocaine 1 patch 06/16/25 02:10 06/16/25 08:22 Lidocaine Patch 4% TOP 1 patch DAILY PEREZ Administration Metoprolol Succinate 25 mg 06/15/25 12:00 06/16/25 08:22 Metoprolol Succinate 25 Mg Tablet PO 25 mg DAILY PEREZ Administration Nitrofurantoin 100 mg 06/15/25 11:00 06/16/25 20:35 Nitrofurantoin Macro 100 Mg Capsule PO 100 mg BID PEREZ Administration Ondansetron HCl 4 mg 06/13/25 18:52 06/15/25 00:30 Ondansetron Odt 4 Mg Tablet TL 4 mg Q6HR PRN Administration Nausea / Vomiting Oxycodone HCl 5 mg 06/13/25 18:52 Oxycodone 5 Mg Tablet PO Q4HR PRN Pain 5 to 7 Polyethylene Glycol 17 gm 06/16/25 09:00 06/16/25 08:23 Polyethylene Glycol 3350 17 Gm Packet PO 17 gm DAILY PEREZ Administration Sodium Chloride 10 ml 06/13/25 18:52 06/14/25 06:31 Sodium Chloride Flush 0.9% 10 Ml Syringe IVP 10 ml PRN PRN Administration NEEDED PER PROVIDER ORDERS Sodium Chloride 10 ml 06/14/25 01:00 06/16/25 20:36 Sodium Chloride Flush 0.9% 10 Ml Syringe IVP 10 ml 0100,0900,1700 PEREZ Administration Sodium Chloride 2 sprays 06/16/25 21:19 06/16/25 21:38 Sodium Chloride 0.65% Nasal [place] ANJEL 1 spr Q4HR PRN Administration Nasal Congestion Trazodone HCl 50 mg 06/16/25 21:19 06/16/25 21:39 Trazodone 50 Mg Tablet PO 50 mg QPM PRN Administration sleep Objective Vital Signs/Intake & Output Reviewed Vital Signs: Yes Vital Signs: Vital Signs x48h Temp Pulse Pulse Resp BP Pulse Ox O2 Flow Rate 06/17/25 07:00 77 28 H 84/62 L 93 6 06/17/25 06:26 6 06/17/25 06:00 89 24 94/44 L 91 L 6 06/17/25 05:00 98.4 F 82 22 101/47 L 92 6 06/17/25 04:55 6 06/17/25 04:00 6 06/17/25 04:00 76 21 93 6 06/17/25 03:00 79 28 H 93/54 L 88 L 06/17/25 02:39 99 10 06/17/25 02:00 72 25 H 85/46 L 88 L 06/17/25 01:00 74 27 H 99/57 L 94 06/17/25 00:00 97.9 F 86 27 H 91/64 92 Intake & Output: Intake & Output 06/14/25 06/15/25 06/16/25 06/17/25 23:59 23:59 23:59 23:59 Intake Total 520 / 520 1100 / 1100 880 / 880 200 / 200 Output Total 2024 1500 / 1500 2251 / 2251 Balance -1505 / -1505 -400 / -400 -1371 / -1371 200 / 200 Weight (kg) 87 kg 85.5 kg 84.5 kg 84 kg Objective Comments/Other: Constitutional: Adult female who lies semi-Boles's in hospital bed in [facility]. Integument: Skin smooth, warm, dry and intact. HEENT: Dry lips, moist small, lesion to inner upper lip. Normocephalic, atraumatic. Facial features symmetrical at rest and with movement. Respiratory: Lungs diminished in the bases bilaterally. No crackles, rales. Shallow respirations. Chest expansion symmetric. Cardiac: Regular S1, S2 heart sounds. No murmur detected. Peripheral Vascular: BLE edema 1+. Pedal pulses 1+. Warm and non-cyanotic. Gastrointestinal: Abdomen is warm, soft, and nontender. Symmetrical, round contour. Bowel tones audible and normoactive. Musculoskeletal: BUE/BLE motor strength 4/5. Full ROM in upper and lower extremities. Neurological: Alert, oriented x 4 to self, place, time, situation. Recent and remote memory intact. Calm, cooperative, follows commands. Mood appropriate to situation. Thought process coherent with appropriate judgment. Speech fluent. PERRLA. Sensation grossly intact. Lab Results 06/17/25 04:10 06/17/25 04:10 Other Labs: Lab Results x24hrs 06/17/25 06/16/25 06/16/25 Range/Units 04:10 17:01 11:59 WBC 6.2 (4.8-10.8) x10^3/uL RBC 5.24 (4.20-5.40) 10^6/uL Hgb 14.9 (12.0-16.0) g/dL Hct 51.8 H (37.0-47.0) % MCV 98.9 (81.0-99.0) fL MCH 28.4 (27.0-31.0) pg MCHC 28.8 L (32.0-36.0) g/dL RDW 13.8 (12.0-15.0) % Plt Count 155 (130-450) 10^3/uL MPV 10.1 (7.9-10.8) fL Neut # (Auto) 3.3 (1.5-6.6) 10^3/uL Lymph # (Auto) 2.1 (1.5-3.5) 10^3/uL Stanley # (Auto) 0.6 (0.0-1.0) 10^3/uL Eos # (Auto) 0.1 (0.0-0.7) 10^3/uL Baso # (Auto) 0.0 (0.0-0.1) 10^3/uL Absolute Nucleated RBC 0.00 x10^3/uL Nucleated RBC % 0.0 /100WBC Sodium 143 (135-145) mmol/L Potassium 3.8 (3.5-4.5) mmol/L Chloride 98 L (101-111) mmol/L Carbon Dioxide 42 H* (21-32) mmol/L Anion Gap 3.0 L (6-13) BUN 17 (6-20) mg/dL Creatinine 0.5 L (0.6-1.3) mg/dL Estimated GFR (MDRD) 128 (>89) Glucose 154 H (74-104) mg/dL POC Whole Bld Glucose 183 273 (70-100) mg/dL Calcium 10.0 (8.5-10.3) mg/dL Magnesium 1.8 (1.7-2.3) mg/dL 06/16/25 Range/Units 08:05 WBC (4.8-10.8) x10^3/uL RBC (4.20-5.40) 10^6/uL Hgb (12.0-16.0) g/dL Hct (37.0-47.0) % MCV (81.0-99.0) fL MCH (27.0-31.0) pg MCHC (32.0-36.0) g/dL RDW (12.0-15.0) % Plt Count (130-450) 10^3/uL MPV (7.9-10.8) fL Neut # (Auto) (1.5-6.6) 10^3/uL Lymph # (Auto) (1.5-3.5) 10^3/uL Stanley # (Auto) (0.0-1.0) 10^3/uL Eos # (Auto) (0.0-0.7) 10^3/uL Baso # (Auto) (0.0-0.1) 10^3/uL Absolute Nucleated RBC x10^3/uL Nucleated RBC % /100WBC Sodium (135-145) mmol/L Potassium (3.5-4.5) mmol/L Chloride (101-111) mmol/L Carbon Dioxide (21-32) mmol/L Anion Gap (6-13) BUN (6-20) mg/dL Creatinine (0.6-1.3) mg/dL Estimated GFR (MDRD) (>89) Glucose (74-104) mg/dL POC Whole Bld Glucose 169 (70-100) mg/dL Calcium (8.5-10.3) mg/dL Magnesium (1.7-2.3) mg/dL Diagnostic Imaging Diagnostic Imaging Results: positive Final report reviewed and Read independently Assessment/Plan Problem List (1) Acute hypoxic respiratory failure: (2) CHF (congestive heart failure): Impression: Likely multifactorial with CHF exacerbation, recent viral illness, progression of underlying neuromuscular disease. CT angiogram of chest shows no pulmonary embolism. Does show cardiomegaly, as well as shallow inspiratory effort. Compressive atelectasis is noted bilaterally. Continue incentive spirometry, out of bed, ambulation. Discussed with patient and nurse today importance of frequent and continued IS use. BIPAP for increased work of breathing, shallow respirations which may be leading to CO2 retention. Used intermittently throughout the day. May be partly attributed to worsening of underlying myotonic dystrophy. Strict intake/output, daily weights as able. Urine output over the last 48 hours has been 2 L, 1.5L, 2.25 L She has had a net negative balance for the past 48 hours as well. Her weight has decreased from 87 kg to 84 kg. She does not know what her dry weight is. Continue IV Lasix, 40mg daily IV. Lower extremity edema improved. Repeat ECHO ordered, final report pending. Will likely require IV diuresis for 1-2 more days. After this, her worsening respiratory status may be attributed due to progression of her underlying myotonic dystrophy. She states that she sees her neurologist every 5 years, and has not gotten pulmonary exam done, and does not recall getting her functional vital capacity tested. Will try to continue to get a hold of patient's mother and sister for further information about the above. Qualifiers: Heart failure chronicity: acute on chronic Heart failure type: u nspecified Qualified Code(s): I50.9 - Heart failure, unspecified (3) Acute cystitis: Impression: Patient endorsing new urinary frequency over the past week, as well as mild dysuria. She has some incontinence intermittently at baseline. UA positive for moderate bacteria. Negative LE, nitrites. Some contamination noted with squamous cells. Will complete course of oral antibiotics as patient is symptomatic with 5 days of Macrobid. Qualifiers: Hematuria presence: without hematuria Qualified Code(s): N30.00 - Acute cystitis without hematuria (4) Hypotension: Impression: Patient with continued hypotension, although now improved. No white count, afebrile, no infectious symptoms. AM cortisol ordered, although patient has no recent steroid use, euglycemic, normothermic. Most likely due to worsening autonomic dysfunciton in setting of progressive myoclonic dystropy. Will consider midodrine. Qualifiers: Hypotension type: unspecified hypotension type Qualified Code(s): I95.9 - Hypotension, unspecified (5) Altered mental status: Impression: Resolved. Treating secondary causes as above. Delirium precautions. Qualifiers: Altered mental status type: unspecified Qualified Code(s): R41.82 - Altered mental status, unspecified (6) Atrial fibrillation: Impression: Patient with history of chronic atrial fibrillation. She denies chest pain, palpitations. Continue home Eliquis. Will restart metoprolol with hold parameters. Continuous telemetry in ICU. Qualifiers: Atrial fibrillation type: longstanding persistent Qualified Code(s): I 48.11 - Longstanding persistent atrial fibrillation (7) Diabetes mellitus: Impression: HgbA1c 9.2 this admission. BG ACHS, carbohydrate controlled diet, hypoglycemic protocol in place. Continue insulin glargine 10 units nightly, low dose correctional insulin. 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 She utilizes a walker at baseline, and requires apple sauce/yogurt with medications. She does drink thin liquids regularly without issues, is not on a special modified texture diet otherwise. Is not on any therapies for this illness. At baseline mobility.
[2025-06-18 05:08] LABS: HCT - HEMATOCRIT 54.3 % (37.0-47.0); HGB - HEMOGLOBIN 15.7 g/dL (12.0-16.0); MEAN PLATELET VOLUME 10.7 fL (7.9-10.8); NRBC ABSOLUTE COUNT (AUTO) 0.00 x10^3/uL; NUCLEATED RED BLOOD CELLS AUTO 0.0 /100WBC; PLT - PLATELET COUNT 150 10^3/uL (130-450); RED CELL DISTRIBUTION WIDTH 13.7 % (12.0-15.0)
[2025-06-18 05:09] LABS: BUN - BLOOD UREA NITROGEN 18.0 mg/dL (6-20); CARBON DIOXIDE - CO2 44.0 mmol/L (21-32); CREATININE 0.5 mg/dL (0.6-1.3); GFR - MDRD 128.0 (>89)
[2025-06-18 05:55] LABS: PLATELET ESTIMATE, MANUAL NORMAL (130-450,000) (NORMAL); PLATELET MORPHOLOGY NORMAL APPEARANCE (NORMAL); SLIDE REVIEW? Indicated
[2025-06-18 05:56] LABS: RBC MORPHOLOGY (MULTIPLE) NORMAL APPEARANCE (NORMAL); WBC MORPHOLOGY (MULTIPLE) NORMAL APPEARANCE (NORMAL)
--- NOTE | 2025-06-18 07:40 | PROVIDER PROGRESS NOTE ---
Subjective Subjective Subjective: Katherin Foss is a 54-year-old female with a past medical history of myotonic dystrophy, DVT with PE, HFpEF (EF 60-65% in ), atrial-fibrillation, and type 1 DM who presented with increasing BLE edema, confusion, and hypoxia. Today, Katherin states she's doing well. She feels better compared to when she first got here. She denies any feelings of shortness of breath, cough, fevers, chills. She doesn't feel like she has had increased work of breathing. She had some sinus congestion, and states that she does have allergies at home. I spoke with her mother. She does not have a CPAP machine at home. She does have oxygen at home. She is supposed to wear it all the time, but she does not typically do so. She does not use a CPAP machine at home. Please see separately dictated ACP notes about goals of care. Current Medications Current Medications Current Medications: Current Medications Generic Name Dose Route Start Last Admin Trade Name Freq PRN Reason Stop Dose Admin Acetaminophen 650 mg 06/13/25 18:52 06/17/25 08:08 Acetaminophen 325 Mg Tablet PO 650 mg Q4HR PRN Administration Pain 1 to 4, or Fever Apixaban 5 mg 06/14/25 09:00 06/17/25 21:06 Apixaban 5 Mg Tablet PO 5 mg BID PEREZ Administration Cetirizine HCl 10 mg 06/14/25 21:29 06/17/25 08:08 Cetirizine 10 Mg Tablet PO 10 mg DAILY PRN Administration Allergy Symptoms Furosemide 40 mg 06/14/25 09:00 06/17/25 08:09 Furosemide 40 Mg/4 Ml Vial IVP 40 mg DAILY PEREZ Administration Insulin Glargine-yfgn 10 unit 06/13/25 21:00 06/17/25 21:06 Insulin Glargine-Yfgn 300 Unit/3 Ml Pen SUBQ 10 unit QPM PEREZ Administration Insulin Human Lispro 1 - 9 unit 06/18/25 08:00 Insulin Lispro 300 Unit/3 Ml Pen SUBQ 0800,1200,1700,2100 PEREZ Protocol Lidocaine 1 patch 06/16/25 02:10 06/17/25 08:09 Lidocaine Patch 4% TOP 1 patch DAILY PEREZ Administration Metoprolol Succinate 25 mg 06/15/25 12:00 06/17/25 08:08 Metoprolol Succinate 25 Mg Tablet PO 25 mg DAILY PEREZ Administration Nitrofurantoin 100 mg 06/15/25 11:00 06/17/25 21:06 Nitrofurantoin Macro 100 Mg Capsule PO 100 mg BID PEREZ Administration Ondansetron HCl 4 mg 06/13/25 18:52 06/15/25 00:30 Ondansetron Odt 4 Mg Tablet TL 4 mg Q6HR PRN Administration Nausea / Vomiting Oxycodone HCl 5 mg 06/13/25 18:52 Oxycodone 5 Mg Tablet PO Q4HR PRN Pain 5 to 7 Polyethylene Glycol 17 gm 06/16/25 09:00 06/17/25 08:10 Polyethylene Glycol 3350 17 Gm Packet PO 17 gm DAILY PEREZ Administration Sodium Chloride 10 ml 06/13/25 18:52 06/17/25 21:08 Sodium Chloride Flush 0.9% 10 Ml Syringe IVP 10 ml PRN PRN Administration NEEDED PER PROVIDER ORDERS Sodium Chloride 10 ml 06/14/25 01:00 06/18/25 00:22 Sodium Chloride Flush 0.9% 10 Ml Syringe IVP Not Given 0100,0900,1700 PEREZ Sodium Chloride 2 sprays 06/16/25 21:19 06/16/25 21:38 Sodium Chloride 0.65% Nasal Sharon ANJEL 1 spr Q4HR PRN Administration Nasal Congestion Trazodone HCl 50 mg 06/16/25 21:19 06/17/25 21:06 Trazodone 50 Mg Tablet PO 50 mg QPM PRN Administration sleep Objective Vital Signs/Intake & Output Reviewed Vital Signs: Yes Vital Signs: Vital Signs x48h Temp Pulse Pulse Resp BP Pulse Ox O2 Flow Rate 06/18/25 07:18 5 06/18/25 07:00 72 18 99/63 92 6 06/18/25 07:00 5 06/18/25 06:00 80 16 102/65 95 6 06/18/25 05:34 78 5 06/18/25 05:00 80 27 H 110/57 L 93 06/18/25 04:00 98.4 F 88 18 95/60 92 6 06/18/25 03:00 75 5 06/18/25 03:00 79 21 93/68 92 6 06/18/25 02:00 78 23 111/64 92 6 06/18/25 01:00 96.8 F L 83 22 108/66 93 6 06/18/25 00:00 84 22 116/68 92 6 Intake & Output: Intake & Output 06/15/25 06/16/25 06/17/25 06/18/25 23:59 23:59 23:59 23:59 Intake Total 1100 / 1100 880 / 880 680 / 680 300 / 300 Output Total 1500 / 1500 2251 / 2251 1300 / 1300 375 / 375 Balance -400 / -400 -1371 / -1371 -620 / -620 -75 / -75 Weight (kg) 85.5 kg 84.5 kg 84 kg 84.5 kg Objective Comments/Other: Constitutional: Adult female who lies semi-Boles's in hospital bed in [facility]. Integument: Skin smooth, warm, dry and intact. HEENT: Dry lips, moist small, lesion to inner upper lip. Normocephalic, atraumatic. Facial features symmetrical at rest and with movement. Respiratory: Lungs diminished in the bases bilaterally. No crackles, rales. Shallow respirations. Chest expansion symmetric. Cardiac: Regular S1, S2 heart sounds. No murmur detected. Peripheral Vascular: BLE edema 1+, imprved daily. Pedal pulses 1+. Warm and non- cyanotic. Gastrointestinal: Abdomen is warm, soft, and nontender. Symmetrical, round contour. Bowel tones audible and normoactive. Musculoskeletal: BUE/BLE motor strength 4/5. Proximal muscle weakness noted. F ull ROM in upper and lower extremities. Neurological: Alert, oriented x 4 to self, place, time, situation. Recent and remote memory intact. Calm, cooperative, follows commands. Mood appropriate to situation. Thought process coherent with appropriate judgment. Speech fluent. PERRLA. Sensation grossly intact. Lab Results 06/18/25 04:20 06/18/25 04:20 Other Labs: Lab Results x24hrs 06/18/25 06/17/25 06/17/25 Range/Units 04:20 20:59 16:57 WBC 6.3 (4.8-10.8) x10^3/uL RBC 5.52 H (4.20-5.40) 10^6/uL Hgb 15.7 (12.0-16.0) g/dL Hct 54.3 H (37.0-47.0) % MCV 98.4 (81.0-99.0) fL MCH 28.4 (27.0-31.0) pg MCHC 28.9 L (32.0-36.0) g/dL RDW 13.7 (12.0-15.0) % Plt Count 150 (130-450) 10^3/uL MPV 10.7 (7.9-10.8) fL Neut # (Auto) 3.4 (1.5-6.6) 10^3/uL Lymph # (Auto) 2.0 (1.5-3.5) 10^3/uL [place] # (Auto) 0.6 (0.0-1.0) 10^3/uL Eos # (Auto) 0.1 (0.0-0.7) 10^3/uL Baso # (Auto) 0.0 (0.0-0.1) 10^3/uL Absolute Nucleated RBC 0.00 x10^3/uL Nucleated RBC % 0.0 /100WBC Manual Slide Review Indicated WBC Morphology NORMAL APPEARANCE (NORMAL) Platelet Estimate NORMAL (130-450,000) (NORMAL) Platelet Morphology NORMAL APPEARANCE (NORMAL) RBC Morph Micro Appear NORMAL APPEARANCE (NORMAL) Sodium 143 (135-145) mmol/L Potassium 3.8 (3.5-4.5) mmol/L Chloride 95 L (101-111) mmol/L Carbon Dioxide 44 H* (21-32) mmol/L Anion Gap 4.0 L (6-13) BUN 18 (6-20) mg/dL Creatinine 0.5 L (0.6-1.3) mg/dL Estimated GFR (MDRD) 128 (>89) Glucose 168 H (74-104) mg/dL POC Whole Bld Glucose 252 206 (70-100) mg/dL Calcium 10.2 (8.5-10.3) mg/dL Magnesium 1.9 (1.7-2.3) mg/dL 06/17/25 06/17/25 Range/Units 12:12 07:55 WBC (4.8-10.8) x10^3/uL RBC (4.20-5.40) 10^6/uL Hgb (12.0-16.0) g/dL Hct (37.0-47.0) % MCV (81.0-99.0) fL MCH (27.0-31.0) pg MCHC (32.0-36.0) g/dL RDW (12.0-15.0) % Plt Count (130-450) 10^3/uL MPV (7.9-10.8) fL Neut # (Auto) (1.5-6.6) 10^3/uL Lymph # (Auto) (1.5-3.5) 10^3/uL [place] # (Auto) (0.0-1.0) 10^3/uL Eos # (Auto) (0.0-0.7) 10^3/uL Baso # (Auto) (0.0-0.1) 10^3/uL Absolute Nucleated RBC x10^3/uL Nucleated RBC % /100WBC Manual Slide Review WBC Morphology (NORMAL) Platelet Estimate (NORMAL) Platelet Morphology (NORMAL) RBC Morph Micro Appear (NORMAL) Sodium (135-145) mmol/L Potassium (3.5-4.5) mmol/L Chloride (101-111) mmol/L Carbon Dioxide (21-32) mmol/L Anion Gap (6-13) BUN (6-20) mg/dL Creatinine (0.6-1.3) mg/dL Estimated GFR (MDRD) (>89) Glucose (74-104) mg/dL POC Whole Bld Glucose 283 164 (70-100) mg/dL Calcium (8.5-10.3) mg/dL Magnesium (1.7-2.3) mg/dL Diagnostic Imaging Diagnostic Imaging Results: positive Final report reviewed and Read independently Assessment/Plan Problem List (1) Acute hypoxic respiratory failure: (2) CHF (congestive heart failure): Impression: Likely multifactorial with CHF exacerbation, recent viral illness, progression of underlying neuromuscular disease. CT angiogram of chest shows no pulmonary embolism. Does show cardiomegaly, as well as shallow inspiratory effort. Compressive atelectasis is noted bilaterally. Continue incentive spirometry, out of bed, ambulation. Discussed with patient and nurse today importance of frequent and continued IS use. BIPAP for increased work of breathing, shallow respirations which may be leading to CO2 retention. Use nightly, will need it at discharge. May be partly attributed to worsening of underlying myotonic dystrophy. Strict intake/output, daily weights as able. Urine output over the last 48 hours has been 2 L, 1.5L, 2.25 L, 1.3 She has had a net negative balance for the past 48 hours as well. Her weight has decreased from 87 kg to 84 kg. She does not know what her dry weight is. Continue IV Lasix, 40mg daily IV. Lower extremity edema improved. Repeat ECHO ordered, final report pending. Will likely require IV diuresis for 1-2 more days. After this, her worsening respiratory status may be attributed due to progression of her underlying myotonic dystrophy. She states that she sees her neurologist every 5 years, and has not gotten pulmonary exam done, and does not recall getting her functional vital capacity tested. Qualifiers: Heart failure chronicity: acute on chronic Heart failure type: u nspecified Qualified Code(s): I50.9 - Heart failure, unspecified (3) Acute cystitis: Impression: Patient endorsing new urinary frequency over the past week, as well as mild dysuria. She has some incontinence intermittently at baseline. UA positive for moderate bacteria. Negative LE, nitrites. Some contamination noted with squamous cells. Will complete course of oral antibiotics as patient is symptomatic with 5 days of Macrobid. Qualifiers: Hematuria presence: without hematuria Qualified Code(s): N30.00 - Acute cystitis without hematuria (4) Hypotension: Impression: Patient with continued hypotension, although now improved. No white count, afebrile, no infectious symptoms. AM cortisol ordered, although patient has no recent steroid use, euglycemic, normothermic. Most likely due to worsening autonomic dysfunciton in setting of progressive myoclonic dystropy. Will consider midodrine. Qualifiers: Hypotension type: unspecified hypotension type Qualified Code(s): I95.9 - Hypotension, unspecified (5) Altered mental status: Impression: Resolved. Treating secondary causes as above. Delirium precautions. Qualifiers: Altered mental status type: unspecified Qualified Code(s): R41.82 - Altered mental status, unspecified (6) Atrial fibrillation: Impression: Patient with history of chronic atrial fibrillation. She denies chest pain, palpitations. Continue home Eliquis. Will restart metoprolol with hold parameters. Continuous telemetry in ICU. Qualifiers: Atrial fibrillation type: longstanding persistent Qualified Code(s): I 48.11 - Longstanding persistent atrial fibrillation (7) Diabetes mellitus: Impression: HgbA1c 9.2 this admission. BG ACHS, carbohydrate controlled diet, hypoglycemic protocol in place. Continue insulin glargine 10 units nightly, low dose correctional insulin. 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 She utilizes a walker at baseline, and requires apple sauce/yogurt with medications. She does drink thin liquids regularly without issues, is not on a special modified texture diet otherwise. Is not on any therapies for this illness. I spoke with mother today - she does appear below her normal baseline. PT was consulted.
[2025-06-18] MEDS: INSULIN LISPRO 300 UNIT/3 ML PEN SUBQ SCH (08:08)
--- NOTE | 2025-06-18 11:15 | ADVANCE CARE PLANNING NOTE ---
Advance Care Planning Planning Encounter Date: 06/18/25 Time: 11:15 Purpose: Establish goals of care. Speak with DPOA. Parties in Attendance: Telephone conversation with mother after receiving permission from daughter. Daughter. Decisional Capacity of the Patient: Partially decisional. She does not fully comprehend abstract concepts and requires her mother's support. Diagnosis for Encounter (1) Myotonic dystrophy: Summary: Shortness of breath likely multifactorial with CHF exacerbation, recent viral illness, progression of underlying neuromuscular disease. CT angiogram of chest shows no pulmonary embolism. Does show cardiomegaly, as well as shallow inspiratory effort. Compressive atelectasis is noted bilaterally. Continue incentive spirometry, out of bed, ambulation. Discussed with patient and nurse today importance of frequent and continued IS use. BIPAP for increased work of breath. Continue IV Lasix, 40mg daily IV. Lower extremity edema improved. Repeat ECHO ordered, final report pending. Will likely require IV diuresis for 1-2 more days. After this, her worsening respiratory status may be attributed due to progression of her underlying myotonic dystrophy. She states that she sees her neurologist every 5 years, and has not gotten pulmonary exam done, and does not recall getting her functional vital capacity tested. Will try to continue to get a hold of patient's mother and sister for further information about the above. Encounter Additional Discussion: Patient is a 54-year-old female with history of myotonic dystrophy who presented with worsening shortness of breath. She was found to be in CHF exacerbation, and has been diuresed while here. I spoke with the patient's mother about her diagnosis. Katherin's father was diagnosed with myotonic dystrophy in his early 60s, and rapidly deteriorated in the past within years. This was at [facility], and they offered genetic testing for the entire family. 2 out of 3 of her daughters had myotonic dystrophy, and Katherin had the "highest percentage of it." Katherin used to live in [place] with her . He passed approximately 5 years ago due to a myocardial infarction. Since then, she has been living with her mother who is pretty debilitated. Katherin is supposed to be wearing oxygen all the time, but mom says that it is too heavy for her, and she is unable to move around with that. Katherin's father or her sister did not have respiratory symptoms or respiratory failure with their myotonic dystrophy, but Katherin has been on oxygen for a while. She does state that she can move around herself. At this time, she does sound more debilitated than her baseline. We talked about overall goals of care. Katherin's mom is in agreement that she is DNR/DNI, but is okay with medical management at this time. Unable to fill out POLST as patient's mother isn't here; they do have a copy at home. Code Status: Do Not Attempt Resuscitation
[2025-06-19 05:05] LABS: HCT - HEMATOCRIT 51.7 % (37.0-47.0); HGB - HEMOGLOBIN 15.1 g/dL (12.0-16.0); MEAN PLATELET VOLUME 10.4 fL (7.9-10.8); PLT - PLATELET COUNT 142.0 10^3/uL (130-450); RED CELL DISTRIBUTION WIDTH 13.5 % (12.0-15.0)
[2025-06-19 05:19] LABS: BUN - BLOOD UREA NITROGEN 18.0 mg/dL (6-20); CARBON DIOXIDE - CO2 40.0 mmol/L (21-32); CREATININE 0.4 mg/dL (0.6-1.3); GFR - MDRD 166.0 (>89)
[2025-06-19] MEDS: INSULIN LISPRO 300 UNIT/3 ML PEN SUBQ SCH (08:03)
--- NOTE | 2025-06-19 09:26 | PROVIDER PROGRESS NOTE ---
Subjective Subjective Subjective: Katherin Foss is a 54-year-old female with a past medical history of myotonic dystrophy, DVT with PE, HFpEF (EF 60-65% in ), atrial-fibrillation, and type 1 DM who presented with increasing BLE edema, confusion, and hypoxia. Today, Katherin states she's doing well. She feels better compared to when she first got here. She denies any feelings of shortness of breath, cough, fevers, chills. She doesn't feel like she has had increased work of breathing. She had some sinus congestion, and states that she does have allergies at home. I spoke with her mother. She does not have a CPAP machine at home. She does have oxygen at home. She is supposed to wear it all the time, but she does not typically do so. She does not use a CPAP machine at home. Patient has myotonic dystrophy and is suffering from chronic respiratory insufficiency and hypoxemia. She requires nocturnal and sometimes daytime ventilation. Home BiPAP insufficient due to severity of her chronic diagnosis. I am ordering noninvasive home ventilator to treat these 2 diagnoses. Current Medications Current Medications Current Medications: Current Medications Generic Name Dose Route Start Last Admin Trade Name Freq PRN Reason Stop Dose Admin Acetaminophen 650 mg 06/13/25 18:52 06/19/25 08:03 Acetaminophen 325 Mg Tablet PO 650 mg Q4HR PRN Administration Pain 1 to 4, or Fever Apixaban 5 mg 06/14/25 09:00 06/19/25 08:02 Apixaban 5 Mg Tablet PO 5 mg BID PEREZ Administration Cetirizine HCl 10 mg 06/14/25 21:29 06/19/25 08:02 Cetirizine 10 Mg Tablet PO 10 mg DAILY PRN Administration Allergy Symptoms Furosemide 40 mg 06/14/25 09:00 06/19/25 08:03 Furosemide 40 Mg/4 Ml Vial IVP 40 mg DAILY PEREZ Administration Insulin Glargine-yfgn 10 unit 06/13/25 21:00 06/18/25 21:08 Insulin Glargine-Yfgn 300 Unit/3 Ml Pen SUBQ 10 unit QPM PEREZ Administration Insulin Human Lispro 2 - 10 unit 06/19/25 08:00 06/19/25 08:03 Insulin Lispro 300 Unit/3 Ml Pen SUBQ 4 unit 0800,1200,1700,2100 PEREZ Administration Protocol Lidocaine 1 patch 06/16/25 02:10 06/19/25 08:04 Lidocaine Patch 4% TOP 1 patch DAILY PEREZ Administration Metoprolol Succinate 25 mg 06/15/25 12:00 06/19/25 08:03 Metoprolol Succinate 25 Mg Tablet PO 25 mg DAILY PEREZ Administration Nitrofurantoin 100 mg 06/15/25 11:00 06/19/25 08:02 Nitrofurantoin Macro 100 Mg Capsule PO 100 mg BID PEREZ Administration Ondansetron HCl 4 mg 06/13/25 18:52 06/15/25 00:30 Ondansetron Odt 4 Mg Tablet TL 4 mg Q6HR PRN Administration Nausea / Vomiting Oxycodone HCl 5 mg 06/13/25 18:52 Oxycodone 5 Mg Tablet PO Q4HR PRN Pain 5 to 7 Polyethylene Glycol 17 gm 06/16/25 09:00 06/19/25 08:04 Polyethylene Glycol 3350 17 Gm Packet PO 17 gm DAILY PEREZ Administration Sodium Chloride 10 ml 06/13/25 18:52 06/18/25 21:09 Sodium Chloride Flush 0.9% 10 Ml Syringe IVP 10 ml PRN PRN Administration NEEDED PER PROVIDER ORDERS Sodium Chloride 10 ml 06/14/25 01:00 06/19/25 08:05 Sodium Chloride Flush 0.9% 10 Ml Syringe IVP 10 ml 0100,0900,1700 PEREZ Administration Sodium Chloride 2 sprays 06/16/25 21:19 06/16/25 21:38 Sodium Chloride 0.65% Nasal [place] ANJEL 1 spr Q4HR PRN Administration Nasal Congestion Trazodone HCl 50 mg 06/16/25 21:19 06/18/25 21:04 Trazodone 50 Mg Tablet PO 50 mg QPM PRN Administration sleep Objective Vital Signs/Intake & Output Reviewed Vital Signs: Yes Vital Signs: Vital Signs x48h Temp Pulse Pulse Resp BP Pulse Ox O2 Flow Rate 06/19/25 09:00 92 20 118/71 95 5 06/19/25 08:00 98.8 F 99 22 103/69 92 5 06/19/25 07:12 87 21 83/67 L 90 L 5 06/19/25 07:00 5 06/19/25 07:00 5 06/19/25 06:00 81 19 107/58 L 91 L 5 06/19/25 05:23 5 06/19/25 05:00 77 20 110/76 92 5 06/19/25 05:00 5 06/19/25 04:27 98.2 F 06/19/25 04:26 5 06/19/25 04:00 77 22 103/61 93 06/19/25 03:25 75 06/19/25 03:00 75 18 109/65 94 06/19/25 02:00 92 37 H 93/65 92 06/19/25 01:35 75 Intake & Output: Intake & Output 06/16/25 06/17/25 06/18/25 06/19/25 23:59 23:59 23:59 23:59 Intake Total 880 / 880 680 / 680 760 / 760 40 / 40 Output Total 2251 / 2251 1300 / 1300 1425 / 1425 400 / 400 Balance -1371 / -1371 -620 / -620 -665 / -665 -360 / -360 Weight (kg) 84.5 kg 84 kg 84.5 kg 83.5 kg Objective Comments/Other: Constitutional: Adult female who lies semi-Boles's in hospital bed in [facility]. Integument: Skin smooth, warm, dry and intact. HEENT: Dry lips, moist small, lesion to inner upper lip. Normocephalic, atraumatic. Facial features symmetrical at rest and with movement. Respiratory: Lungs diminished in the bases bilaterally. No crackles, rales. Shallow respirations. Chest expansion symmetric. Cardiac: Regular S1, S2 heart sounds. No murmur detected. Peripheral Vascular: BLE edema 1+, imprved daily. Pedal pulses 1+. Warm and non- cyanotic. Gastrointestinal: Abdomen is warm, soft, and nontender. Symmetrical, round contour. Bowel tones audible and normoactive. Musculoskeletal: BUE/BLE motor strength 4/5. Proximal muscle weakness noted. F ull ROM in upper and lower extremities. Neurological: Alert, oriented x 4 to self, place, time, situation. Recent and remote memory intact. Calm, cooperative, follows commands. Mood appropriate to situation. Thought process coherent with appropriate judgment. Speech fluent. PERRLA. Sensation grossly intact. Lab Results 06/19/25 04:47 06/19/25 04:47 Other Labs: Lab Results x24hrs 06/19/25 06/19/25 06/18/25 Range/Units 07:54 04:47 20:55 WBC 5.8 (4.8-10.8) x10^3/uL RBC 5.26 (4.20-5.40) 10^6/uL Hgb 15.1 (12.0-16.0) g/dL Hct 51.7 H (37.0-47.0) % MCV 98.3 (81.0-99.0) fL MCH 28.7 (27.0-31.0) pg MCHC 29.2 L (32.0-36.0) g/dL RDW 13.5 (12.0-15.0) % Plt Count 142 (130-450) 10^3/uL MPV 10.4 (7.9-10.8) fL Sodium 140 (135-145) mmol/L Potassium 3.6 (3.5-4.5) mmol/L Chloride 96 L (101-111) mmol/L Carbon Dioxide 40 H* (21-32) mmol/L Anion Gap 4.0 L (6-13) BUN 18 (6-20) mg/dL Creatinine 0.4 L (0.6-1.3) mg/dL Estimated GFR (MDRD) 166 (>89) Glucose 180 H (74-104) mg/dL POC Whole Bld Glucose 199 276 (70-100) mg/dL Calcium 10.2 (8.5-10.3) mg/dL Magnesium 1.9 (1.7-2.3) mg/dL 06/18/25 06/18/25 06/16/25 Range/Units 16:36 11:22 20:33 WBC (4.8-10.8) x10^3/uL RBC (4.20-5.40) 10^6/uL Hgb (12.0-16.0) g/dL Hct (37.0-47.0) % MCV (81.0-99.0) fL MCH (27.0-31.0) pg MCHC (32.0-36.0) g/dL RDW (12.0-15.0) % Plt Count (130-450) 10^3/uL MPV (7.9-10.8) fL Sodium (135-145) mmol/L Potassium (3.5-4.5) mmol/L Chloride (101-111) mmol/L Carbon Dioxide (21-32) mmol/L Anion Gap (6-13) BUN (6-20) mg/dL Creatinine (0.6-1.3) mg/dL Estimated GFR (MDRD) (>89) Glucose (74-104) mg/dL POC Whole Bld Glucose 244 308 256 (70-100) mg/dL Calcium (8.5-10.3) mg/dL Magnesium (1.7-2.3) mg/dL Diagnostic Imaging Diagnostic Imaging Results: positive Final report reviewed and Read independently Assessment/Plan Problem List (1) Acute hypoxic respiratory failure: (2) CHF (congestive heart failure): Impression: Likely multifactorial with CHF exacerbation, recent viral illness, progression of underlying neuromuscular disease. CT angiogram of chest shows no pulmonary embolism. Does show cardiomegaly, as well as shallow inspiratory effort. Compressive atelectasis is noted bilaterally. Continue incentive spirometry, out of bed, ambulation. Discussed with patient and nurse today importance of frequent and continued IS use. PT evaluation completed, recommend home with home health. BIPAP for increased work of breathing, shallow respirations which may be leading to CO2 retention. Use nightly. May be partly attributed to worsening of underlying myotonic dystrophy. Patient has myotonic dystrophy and is suffering from chronic respiratory insufficiency and hypoxemia. She requires nocturnal and sometimes daytime ventilation. Home BiPAP insufficient due to severity of her chronic diagnosis. I am ordering noninvasive home ventilator to treat these 2 diagnoses. Strict intake/output, daily weights as able. Urine output over the last 48 hours has been 2 L, 1.5L, 2.25 L, 1.3, 1.5L daily. She has had a net negative balance for the past 48 hours as well. Her weight has decreased from 87 kg to 83.5 kg. She does not know what her dry weight is. Continue IV Lasix, 40mg daily IV. Lower extremity edema improved. Repeat ECHO ordered, thee visual left ventricular ejection fraction is estimated at 45 to 50%. Can switch to oral diuresis tomorrow. After this, her worsening respiratory status may be attributed due to progression of her underlying myotonic dystrophy. She states that she sees her neurologist every 5 years, and has not gotten pulmonary exam done, and does not recall getting her functional vital capacity tested. Qualifiers: Heart failure chronicity: acute on chronic Heart failure type: u nspecified Qualified Code(s): I50.9 - Heart failure, unspecified (3) Acute cystitis: Impression: Patient endorsing new urinary frequency over the past week, as well as mild dysuria. She has some incontinence intermittently at baseline. UA positive for moderate bacteria. Negative LE, nitrites. Some contamination noted with squamous cells. Will complete course of oral antibiotics as patient is symptomatic with 5 days of Macrobid. Qualifiers: Hematuria presence: without hematuria Qualified Code(s): N30.00 - Acute cystitis without hematuria (4) Hypotension: Impression: Patient with continued hypotension, although now improved. No white count, afebrile, no infectious symptoms. AM cortisol ordered, although patient has no recent steroid use, euglycemic, normothermic. Most likely due to worsening autonomic dysfunciton in setting of progressive myoclonic dystropy. Will consider midodrine. Qualifiers: Hypotension type: unspecified hypotension type Qualified Code(s): I95.9 - Hypotension, unspecified (5) Altered mental status: Impression: Resolved. Treating secondary causes as above. Delirium precautions. Qualifiers: Altered mental status type: unspecified Qualified Code(s): R41.82 - Altered mental status, unspecified (6) Atrial fibrillation: Impression: Patient with history of chronic atrial fibrillation. She denies chest pain, palpitations. Continue home Eliquis. Will restart metoprolol with hold parameters. Continuous telemetry in ICU. Qualifiers: Atrial fibrillation type: longstanding persistent Qualified Code(s): I 48.11 - Longstanding persistent atrial fibrillation (7) Diabetes mellitus: Impression: HgbA1c 9.2 this admission. BG ACHS, carbohydrate controlled diet, hypoglycemic protocol in place. Continue insulin glargine 10 units nightly, low dose correctional insulin. 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 She utilizes a walker at baseline, and requires apple sauce/yogurt with medications. She does drink thin liquids regularly without issues, is not on a special modified texture diet otherwise. Is not on any therapies for this illness. Plan for discharge home with home health.
--- NOTE | 2025-06-19 13:25 | PT Plan of Care ---
PT Inpatient Plan of Care DIAGNOSIS Diagnosis: acute hypoxic RF; CHF, a-fib Diagnosis: PMH includes myotonic dystrophy Referring Provider: Fabio Parsons Patient Status: Inpatient CHIEF COMPLAINT Chief Complaint: weakness and SOB Onset of Chief Complaint: OVEN DAUBER on 06/13/25 BALANCE/FUNCTIONAL RESULTS Sitting Balance: Good Standing Balance: Fair ASSESSMENT Assessment: The pt is a 54 y/o F who arrived to the ED on 06/13/25 due to worsening SOB and generalized weakness, she was hospitalized with acute hypoxic RF, CHF, and a-fib. PMH includes myotonic dystrophy, please see chart for complete medical hx. The pt was received resting comfortably sitting up in a juliann ir and presented today with decreased B UE and LE strength (more profound weakness in distal muscle groups and decreased activity tolerance which limited her tolerance during functional mobility. At this time the pt does not appear to require continued skilled PT intervention while in the acute setting as she is functioning near or at her baseline level. It is recommended that she DC home with HH therapy once medically stable. This plan was discussed with the pt, she was in agreement with this. At the end of the session the pt was sitting up in a chair with call light in reach, chair alarm in place and on, and all needs met while RN was tending to the pt's needs. RN and MD updated on pt's status and DC rec, no goals will be set as this is an eval only. PATIENT/FAMILY GOALS Patient/Family Goals: TO get stronger and go home PLAN Frequency: Evaluation only, no further P.T. Duration: Until goals are met DISCHARGE RECOMMENDATIONS Discharge Location: Previous Living Situation Support/Services Needed: Home Health P.T. Other Discharge Equipment: pt owns all recommended DME Transport Needs at Discharge: Personal vehicle
--- NOTE | 2025-06-19 17:28 | Discharge Summary ---
"Discharge Summary Admit Date: 06/13/25 Discharge Date: 06/20/25 Discharging Provider: Dr. Mark Forbes Primary Care Provider: Carmel Wilson Code Status: Do Not Attempt Resuscitation Discharge Facility Name: Home with Home Health DIAGNOSES Discharge Diagnoses with Status of Each Condition: ## Acute hypoxic respiratory failure, improved ## CHF (congestive heart failure) Likely multifactorial with CHF exacerbation, recent viral illness, progression of underlying neuromuscular disease. CT angiogram of chest shows no pulmonary embolism. Does show cardiomegaly, as well as shallow inspiratory effort. Compressive atelectasis is noted bilaterally. Continue incentive spirometry, out of bed, ambulation. May be partly attributed to worsening of underlying myotonic dystrophy. Repeat ECHO ordered, the left ventricular ejection fraction is estimated at 45 to 50%. She was diuresed here with IV Lasix and transition to oral Lasix on day of discharge. She had good diuresis, with weights coming down. Does not know her dry weight. 80 kg on day of discharge. Down from 87 kg on admission. Her respiratory status did not improve dramatically despite effective diuresis. I do worry that most of her respiratory failure was due to progression of her underlying myotonic dystrophy. She is in agreement that she would not want to live on life support. She saw her father go through a similar process. I have referred her to palliative care at discharge. In my discussion with family, she is not yet ready for hospice. - Continue oral Lasix 20mg - Will need BMP on/around 06/28 - She needs to see her neurologist and get PFTs. - Referral to palliative care ## Acute cystitis, Resolved Patient endorsing new urinary frequency over the past week, as well as mild dysuria. She has some incontinence intermittently at baseline. UA positive for moderate bacteria. Negative LE, nitrites. Some contamination noted with squamous cells. Completed course of oral antibiotics as patient is symptomatic with 5 days of Macrobid. ## Hypotension, improved No white count, afebrile. Most likely due to worsening autonomic dysfunction in setting of progressive myoclonic dystropy. Consider midodrine in outpatient, However she is asymptomatic.. ## Altered mental status, resolved Likely as a result of either hypoxemia or hypercapnia. Treating secondary causes as above. ## Atrial fibrillation, stable, chronic Patient with history of chronic atrial fibrillation. She denies chest pain, palpitations. Continue home Eliquis, metoprolol. ## Diabetes mellitus, stable, chronic HgbA1c 9.2 this admission. Carbohydrate controlled diet. Continue insulin glargine 15 units nightly, 5 units with meals, low dose correctional insulin. 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 She utilizes a walker at baseline, and requires apple sauce/yogurt with medications. She does drink thin liquids regularly without issues. Is not on any therapies for this illness. - Plan for discharge home with home health. - Needs outpatient follow up with neurology, updated PFTs. HPI History of Present Illness: Per TRISH Saul: this is a 54-year-old female who is disabled secondary to myotonic dystrophy with a past medical history of DVT with PE, presumably CHF, atrial fibrillation, insulin-dependent diabetes who presents to the emergency department with confusion. She has been feeling overall well but several days ago started to have some lower extremity edema. She has also developed some urinary incontinence over the last 3 to 4 weeks and been more tremulous. This morning her mother noted that she was very confused and that the swelling in her legs had not gone down and therefore called the ambulance. This patient is on oxygen as needed at home. But normally does not use oxygen she does not have a CPAP, she tried that and failed it in the past. At baseline she is ambulatory with a walker and manages all of her own medications. Today she is not able to give me the full history of her present illness. I had to call her mother to get the story on what is been going on with her. POLST on the chart. Her mother is her surrogate's medical decision maker. She endorses this to me. She states that she wants to be DNR DNI. Her mother tells me that short course of intubation would be okay. CONSULTS | PROCEDURES Consultations: Physical therapy, RT Procedures: CT angiogram of the chestno pulmonary embolus, cardiomegaly, shallow inspirationcompleted 06/13. Venous duplexprobable DVT of the left popliteal and distal femoral veins, [id number]. Head CTno acute intracranial [id number]. Chest x-ray06/13cardiomegaly with increased interstitial markings. HOSPITAL COURSE Hospital Course: Patient is a 54-year-old female with a history of myotonic dystrophy, heart failure with mildly reduced ejection fraction, chronic respiratory failure noncompliant with her home oxygen who presented with bilateral lower extremity swelling, shortness of breath, as well as altered mentation. CTA was done which showed no pulmonary embolism, but did show cardiomegaly, as well as compressive atelectasis. While she has been here, she has been effectively diuresedshe put out about 2 to 3 L of urine output every day, and has had net negative balance for her entire duration of stay. Her weight decreased from 87 kg on admission to 80 kg. She will be discharged home on oral Lasix. In terms of her oxygenation, after speaking with her mom, we learned that she is post to be wearing home oxygen at all times. She does not know what her oxygen level she is supposed to be on. She has required between 4 and 5 L here. Her concentrator at home can achieve this. Continues to diurese and hopefully will continue to improve. At night, she requires noninvasive positive pressure ventilation, both for her respiratory muscle weakness, as well as for likely undiagnosed sleep apnea or central hypoventilation. This was arranged for her with the help of respiratory therapy and care management. But currently pending insurance authorization. While she was here, her hemoglobin A1c was noted to be 9.2%. She was placed on a carbohydrate controlled diet. Initially, her sugars were well-controlled with insulin glargine 10 units at night as well as a sliding scale. However, she has been eating more as she has been feeling better. Will increase to 15 units at night, 5 units with meals. Physical therapy did work with the patient, and recommends home with home health. She lives with her mother. She needs close and continued follow-up with neurology in the outpatient setting. She needs updated pulmonary function testing done in the outpatient setting as well to continue to monitor the progression of this neurodegenerative disease. She also needs close follow-up with her primary care provider for ongoing management of her chronic diseases. Finally, I put in a referral to palliative care. I have given them contact information for Michaela Vargas. I feel he benefit from ongoing discussions with palliative care, for future care planning as well as symptom management. I discussed multiple options with them on day of discharge including consideration for hospice. Her mother and the patient both felt that was likely premature. ALLERGIES Allergies Allergy/AdvReac Type Severity Reaction Status Date / Time amoxicillin AdvReac Rash Verified 06/13/25 12:12 Sulfa (Sulfonamide AdvReac Hives Verified 06/13/25 12:12 Antibiotics) MEDICATIONS Ambulatory Orders Medication Instructions Recorded Confirmed simvastatin 10 mg tablet (Zocor) 10 mg PO DAILY 06/14/25 vitamin B complex (B 1 ea PO DAILY 06/10/2306/14 Complex-Vitamin B12 tablet) vitamin E (dl, acetate) 180 mg 400 unit PO DAILY 06/1006/14/25 (400 unit) capsule gabapentin 300 mg capsule 300 mg PO HS #30 caps 06/14/25 trazodone 50 mg tablet 50 mg PO HS #30 tabs 4 06/14/25 apixaban 5 mg tablet (Eliquis) 5 mg ORAL BID 06/14/25 06/14/25 biotin 1 mg capsule 1 mg PO DAILY 06/14/2506/14 cholecalciferol (vitamin D3) 125 125 mcg PO DAILY 05/2506/14/25 mcg (5,000 unit) tablet (Vitamin D3) empagliflozin 10 mg tablet 10 mg PO DAILY 06/14/25 (Jardiance) folic acid 1 mg tablet 1 mg PO DAILY 06/14/2506/14 insulin glargine U-300 conc 300 50 unit subcut DAILY 1 06/14/25 unit/mL (3 mL) subcutaneous pen (Toujeo Max U-300 SoloStar) metoprolol succinate 25 mg 25 mg PO DAILY #30 tabs tablet,extended release 24 hr furosemide 20 mg tablet 20 mg PO DAILY #30 tabs 05/25 04/17 PHYSICAL EXAM AT DISCHARGE Vital Signs: Vital Signs x48h Temp Pulse Resp BP Pulse Ox O2 Flow Rate 06/20/25 14:00 36.6 C 99 13 98/54 L 91 L 4 06/20/25 11:00 4 06/20/25 09:00 4 06/20/25 08:50 110/56 L 06/20/25 08:35 4 06/20/25 08:32 36.6 C 97 20 80/48 L 93 4 LABS 06/20/25 04:30 06/20/25 04:30 DIAGNOSTIC IMAGING Diagnostic Imaging Results: Final report reviewed FOLLOW UP Follow Up: Follow up PCP. Follow up neurology. TIME SPENT Time Spent in Discharge (Minutes): 39 Discharge Plan Discharge Patient Disposition: 06 Home Health Service Condition: Stable Prescriptions: New metoprolol succinate 25 mg Tablet Extended Release 24 Hr 25 mg PO DAILY Qty: 30 0RF furosemide 20 mg Tablet 20 mg PO DAILY Qty: 30 0RF Continued simvastatin [Zocor] 10 MG tablet 10 mg PO DAILY vitamin B complex [B Complex-Vitamin B12] 1 EACH tablet 1 ea PO DAILY vitamin E (dl, acetate) 400 UNIT capsule 400 unit PO DAILY trazodone 50 MG tablet 50 mg PO HS Qty: 30 3RF Rx Instructions: take 1 tablet each before bedtime. gabapentin 300 MG capsule 300 mg PO HS Qty: 30 3RF Rx Instructions: Take one tablet in the evening. Jardiance 10 mg tablet 10 mg PO DAILY insulin glargine U-300 conc [Toujeo Max U-300 SoloStar] 300 unit/mL (3 mL) insulin pen 50 unit SUBCUT DAILY Patient Comments: INJECT 50 UNITS SUBCUTANEOUSLY EVERY DAY biotin 1 mg capsule 1 mg PO DAILY folic acid 1 mg tablet 1 mg PO DAILY cholecalciferol (vitamin D3) [Vitamin D3] 125 mcg (5,000 unit) tablet 125 mcg PO DAILY Eliquis 5 MG tablet 5 mg ORAL BID Rx Instructions: 10MG BID x 7 DAYS; FOLLOWED BY 5MG BID Activity Restrictions: Activity as Tolerated Diet: Diabetic Health Concerns: You came in because you had swelling in your legs, you were feeling very short of breath, and you were confused. Your oxygen levels were found to be low. This was likely due to some buildup of fluid in your lungs, combined with the fact that your respiratory muscles are getting weaker. You are developing what we call atelectasis, which is reversible. This is when the bottom parts of your lungs collapse because you are not taking big enough breaths. Please continue to use your incentive spirometer at home and continue exercising your lungs. You will require oxygen at all times at home. I know this may be a little cumbersome for you, as the tanks can be heavy. However, without this, your oxygen levels dropped to a very dangerous level. At night, you should be wearing the positive pressure ventilation to help keep your airways open as well and expel the bad gas, like we talked about. I understand that this is uncomfortable, but it will help you breathe better, feel more rested overall. While you have been here, your sugars have been high. Please try to maintain a carb controlled diet. Please continue your long-acting insulin at home, as well as short acting insulin with meals. You need close follow-up with your primary care provider, Carmel Wilson, to make adjustments as needed. I understand that you have a glucometer at home, and I would like you to check your glucose levels as you have been directed. You need labs with your primary care doctor within the next 1 to 2 weeks. They should monitor your kidney function while you are on water pills. Also putting in a referral for a palliative care doctor. Palliative care is a special kind of medical team that helps people who are living with serious conditions. They help with symptom management as well as care planning. They can help support you in making future healthcare decisions and take into account your values, wishes, and your family's needs. We are glad you are feeling better. Thank you for allowing us to take care of you. Print Language: Amharic Patient Instructions: Atelectasis, Diuretics Dc Follow-up Care: CARMEL WILSON ARNP [Primary Care Provider, Nurse Practitioner] Michaela Vargas ARNP, MSN [Provider Admit Priv/Credential, Palliative Care] Referral Note: Palliative care providers can help both managing your symptoms as well as helping plan for your future care. Vitals documented within 30 minutes of discharge?: Yes"
[2025-06-19] MEDS: GABAPENTIN 300 MG CAPSULE PO SCH (20:51)
[2025-06-19] MEDS: INSULIN GLARGINE-YFGN 300 UNIT/3 ML PEN SUBQ SCH (20:53)
[2025-06-20 04:46] LABS: HCT - HEMATOCRIT 51.1 % (37.0-47.0); HGB - HEMOGLOBIN 15.3 g/dL (12.0-16.0); MEAN PLATELET VOLUME 10.3 fL (7.9-10.8); PLT - PLATELET COUNT 139.0 10^3/uL (130-450); RED CELL DISTRIBUTION WIDTH 13.4 % (12.0-15.0)
[2025-06-20 05:13] LABS: BUN - BLOOD UREA NITROGEN 16.0 mg/dL (6-20); CARBON DIOXIDE - CO2 41.0 mmol/L (21-32); CREATININE 0.4 mg/dL (0.6-1.3); GFR - MDRD 166.0 (>89)
[2025-06-20] MEDS: INSULIN LISPRO 300 UNIT/3 ML PEN SUBQ SCH (08:25)
[2025-06-20] MEDS ORDERED: INSULIN GLARGINE U SUBQ SCH (09:00)
[2025-06-20] MEDS ORDERED: [UNRECOGNIZED DRUG - OTHER] SUBQ SCH (09:00)
[2025-06-20] MEDS: FUROSEMIDE 20 MG TABLET PO SCH (09:41)
[2025-06-20 17:11] VITALS: BP 104/65; TEMP 97.7; O2SAT 93
== END 2025-06-20 17:05 | disposition home health service (06) | DRG 291 ==
LOC: ED 11:56 → ICU 11:56 → SUATTDRO 19:36
PROVIDERS: ADMIT Physician Assistant Medical; ATTEND Student in an Organized Health Care Education/Training Program
DX: I50.23 Acute on chronic systolic (congestive) heart failure; E11.9 Type 2 diabetes mellitus without complications; G47.30 Sleep apnea, unspecified; R41.0 Disorientation, unspecified; I48.11 Longstanding persistent atrial fibrillation; E10.9 Type 1 diabetes mellitus without complications; I51.7 Cardiomegaly; Z79.4 Long term (current) use of insulin; R32 Unspecified urinary incontinence; Z87.891 Personal history of nicotine dependence; Z79.84 Long term (current) use of oral hypoglycemic drugs; J96.01 Acute respiratory failure with hypoxia; Z79.01 Long term (current) use of anticoagulants; Z79.899 Other long term (current) drug therapy; G93.41 Metabolic encephalopathy; J96.22 Acute and chronic respiratory failure with hypercapnia; I48.20 Chronic atrial fibrillation, unspecified; Z99.81 Dependence on supplemental oxygen; Z91.199 Patient's noncompliance with other medical treatment and regimen due to unspecified reason; Z66 Do not resuscitate; Z99.3 Dependence on wheelchair; J96.21 Acute and chronic respiratory failure with hypoxia; G71.11 Myotonic muscular dystrophy; I82.512 Chronic embolism and thrombosis of left femoral vein; N30.00 Acute cystitis without hematuria; I50.9 Heart failure, unspecified; I82.532 Chronic embolism and thrombosis of left popliteal vein; I95.9 Hypotension, unspecified